=== PATIENT | female | born 1980 | race Caucasian/White ===

== ENCOUNTER → 2019-02-01 15:51 | Outpatient (CLI) | payer BC, SELFPAY ==
[2019-02-01 11:13] VITALS: BMI 35.5
[2019-02-01 16:01] LABS: Absolute Lymphocyte Count 3.36 X10^3/uL (0.83-4.51); Absolute Neutrophil Count 7.6 X10^3/uL (2.0-7.7); Basophil# 0.09 X10^3/uL; Basophil% 0.7 % (0-1); Eosinophil# 0.25 X10^3/uL; Hematocrit 46.8 % (37-47); Hemoglobin 15.6 g/dL (12.0-15.0); Lymphocyte # 3.36 X10^3/ul (4.0); Lymphocyte % 27.4 % (19-41); Mean Corp Hgb Conc 33.3 g/dL (32-36); Mean Corpuscular Hgb 30.5 pg (27.0-32.0); Mean Corpuscular Volume 91.6 fL (81-99); Mean Platelet Vol. 9.8 fl (6.2-12.0); Monocyte# 0.94 X10^3/uL; Monocyte% 7.7 % (0-10); NRBC Flagged by Analyzer 0 % (0-5); Neutrophil # 7.57 X10^3/uL (2.7-7.7); Neutrophil % 61.6 % (47-70); Platelet Count 339 K/mm3 (150-450); RBC Distribution Width CV 13.4 % (11.6-14.6); RBC Distribution Width SD 45.4 fl (35.1-43.9); Red Blood Count 5.11 M/mm3 (4.2-5.4); White Blood Count 12.3 K/mm3 (4.4-11.0)
[2019-02-01 16:22] LABS: ALB/GLOB Ratio 1.1 RATIO (0.9-2.4); AST(SGOT) 20 U/L (15-37); Alanine Aminotransfer ALT/SGPT 40 U/L (13-56); Alkaline Phosphatase 70 U/L (45-117); Anion Gap 7 (5-15); BUN 12 mg/dL (7-18); BUN/Creat Ratio 12.8 RATIO (10-20); Calcium,Total 9.7 mg/dL (8.5-10.1); Chloride 106 mmol/L (98-107); Cholesterol 279 mg/dL (200); Creatinine, Serum 0.94 mg/dL (0.55-1.02); EST Glomerular Filtration Rate 70 mL/min (>60); Est Glom Filt Rate - Afr Amer 85 mL/min (>60); Globulin 3.7 g/dL (2.2-4.2); Glucose 98 mg/dL (74-106); High Density Lipoprotein 40 mg/dL; Protein, Total 7.7 g/dL (6.4-8.2); Sodium Level 138 mmol/L (136-145); Thyroid Stim Hormone (TSH) 3.65 uIU/mL (0.358-3.74); Triglycerides 230 mg/dL; Very Low Density Lipoprotein 46 mg/dL (5-40)
[2019-02-05 12:21] LABS: Thyroid Peroxidase AB 11 IU/mL (0-34)
== END ==
PROVIDERS: Referring Provider Nurse Practitioner; Visit Provider Nurse Practitioner
DX: E03.9 Hypothyroidism, unspecified (principal); E78.00 Pure hypercholesterolemia, unspecified
CPT/HCPCS: 80053; 80061; 84443; 85025; 86376

== ENCOUNTER → 2019-05-07 21:42 | Outpatient (CLI) | payer BC, SELFPAY ==
[2019-05-07 16:05] VITALS: BMI 35.5
[2019-05-07 22:14] LABS: Thyroid Stim Hormone (TSH) 0.83 uIU/mL (0.358-3.74)
== END ==
PROVIDERS: Referring Provider Nurse Practitioner; Visit Provider Nurse Practitioner
DX: E03.9 Hypothyroidism, unspecified (principal)
CPT/HCPCS: 84443

== ENCOUNTER → 2019-11-26 21:12 | Outpatient (CLI) | payer BC, SELFPAY ==
[2019-11-26 19:44] VITALS: BMI 35.5
[2019-11-26 22:06] LABS: Follicle Stimulating Hormone 8.4 mIU/mL; Luteinizing Hormone 4.6 mIU/mL
[2019-11-28 20:28] LABS: V-Zoster IgG (Immunity) 705 index (Immune >165)
== END ==
PROVIDERS: Referring Provider Nurse Practitioner; Visit Provider Nurse Practitioner
DX: N95.1 Menopausal and female climacteric states (principal); D84.9 Immunodeficiency, unspecified
CPT/HCPCS: 83001; 83002; 86787

== ENCOUNTER → 2019-12-11 21:52 | Outpatient (CLI) | payer BC, SELFPAY ==
[2019-12-11 19:18] VITALS: BMI 35.5
[2019-12-11 22:20] LABS: Cholesterol 236 mg/dL (200); High Density Lipoprotein 65 mg/dL; Triglycerides 110 mg/dL; Very Low Density Lipoprotein 22 mg/dL (5-40)
== END ==
PROVIDERS: Referring Provider Nurse Practitioner; Visit Provider Nurse Practitioner
DX: N95.1 Menopausal and female climacteric states (principal); E78.00 Pure hypercholesterolemia, unspecified
CPT/HCPCS: 80061; 84443

== ENCOUNTER → 2020-05-05 22:18 | Outpatient (CLI) | payer OTHER, SELFPAY ==
[2020-05-05 22:36] LABS: Absolute Lymphocyte Count 3.84 X10^3/uL (0.83-4.51); Absolute Neutrophil Count 8.7 X10^3/uL (2.0-7.7); Basophil# 0.07 X10^3/uL; Basophil% 0.5 % (0-1); Eosinophil# 0.27 X10^3/uL; Eosinophils% 1.9 % (0-5); Hematocrit 46.8 % (37-47); Hemoglobin 14.9 g/dL (12.0-15.0); Lymphocyte # 3.84 X10^3/ul (4.0); Lymphocyte % 27.7 % (19-41); Mean Corp Hgb Conc 31.8 g/dL (32-36); Mean Corpuscular Hgb 29.7 pg (27.0-32.0); Mean Corpuscular Volume 93.4 fL (81-99); Mean Platelet Vol. 10.3 fl (6.2-12.0); Monocyte# 0.93 X10^3/uL; Monocyte% 6.7 % (0-10); NRBC Flagged by Analyzer 0 % (0-5); Neutrophil # 8.69 X10^3/uL (2.7-7.7); Neutrophil % 62.8 % (47-70); POSITIVE COUNT YES; Platelet Count 297 K/mm3 (150-450); RBC Distribution Width CV 13.6 % (11.6-14.6); RBC Distribution Width SD 46.6 fl (35.1-43.9); Red Blood Count 5.01 M/mm3 (4.2-5.4); White Blood Count 13.9 K/mm3 (4.4-11.0)
[2020-05-05 22:54] LABS: Differential Indicated SCAN CRITERIA MET
[2020-05-05 23:02] LABS: AST(SGOT) 19 U/L (15-37); Alanine Aminotransfer ALT/SGPT 40 U/L (13-56); Albumin, Serum 3.8 g/dL (3.2-5.0); Alkaline Phosphatase 75 U/L (45-117); Anion Gap 5 (5-15); BUN 9 mg/dL (7-18); BUN/Creat Ratio 10.6 RATIO (10-20); Calcium,Total 10.3 mg/dL (8.5-10.1); Chloride 103 mmol/L (98-107); Cholesterol 278 mg/dL (200); Creatinine, Serum 0.85 mg/dL (0.55-1.02); EST Glomerular Filtration Rate 78 mL/min (>60); Est Glom Filt Rate - Afr Amer 94 mL/min (>60); Globulin 3.8 g/dL (2.2-4.2); Glucose 78 mg/dL (74-106); High Density Lipoprotein 59 mg/dL; Potassium 4.1 mmol/L (3.5-5.1); Protein, Total 7.6 g/dL (6.4-8.2); Sodium Level 138 mmol/L (136-145); Thyroid Stim Hormone (TSH) 1.77 uIU/mL (0.358-3.74); Triglycerides 221 mg/dL; Very Low Density Lipoprotein 44 mg/dL (5-40)
[2020-05-05 23:13] LABS: Differential Comment SCANNED
== END ==
PROVIDERS: Visit Provider Nurse Practitioner
DX: L65.9 Nonscarring hair loss, unspecified (principal); E03.9 Hypothyroidism, unspecified; E55.9 Vitamin D deficiency, unspecified
CPT/HCPCS: 80053; 80061; 82652; 84443; 85025

== ENCOUNTER 2020-06-08 14:35 | Outpatient (RCR) | payer OTHER, SELFPAY ==
[2020-06-08] MEDS: COVID-19 VACC, MRNA(PFIZER)/PF 30 MCG/0.3 ML SYRINGE IM (11:10)
[2020-06-29] MEDS: COVID-19 VACC, MRNA(PFIZER)/PF 30 MCG/0.3 ML SYRINGE IM (11:48)
== END 2020-08-31 23:59 ==
LOC: IMMUN 14:35
PROVIDERS: PCP General Practice; Visit Provider Family Medicine
DX: Z23 Encounter for immunization (principal)
CPT/HCPCS: 0001A; 0002A; 91300

== ENCOUNTER → 2020-07-23 21:19 | Outpatient (CLI) | payer OTHER, SELFPAY ==
--- NOTE | 2020-07-23 | LES_PTH ---
PATIENT: BIN BILL LOC: [facility] U#:[id number] AGE/SX: 44/F ROOM: RE07/23/[address]: BATSHEVA Ledezma : 1980 BED: DIS: SPEC #: [id number] RECD: 07/26/20 07:59 STATUS: ANTONIO VIRGEN #: [id number] JOSE: 07/23/20 00:[address]: Varsha Beth NP DEPT: SURGICAL PATHOLOGY RECD BY: Yuki Kerr ENTERED: 07/26/20 08:00 SP TYPE: Lesion OTHR DR: Dr. Ashlee Franco MD Tissues: Skin of face, NOS Procedures: Surgery Specimen Level IV HEADER OPERATION: Right forehead lesion PRE-OP DIAGNOSIS: Right forehead lesion TISSUE SUBMITTED: Right forehead lesion MICROSCOPIC DIAGNOSIS Right forehead lesion, biopsy: Consistent with benign verrucous keratosis. Negative for malignancy. SJ:carolann 07/27/2020 MICROSCOPIC DESCRIPTION Slides are reviewed. GROSS DESCRIPTION Received in fixative is one container labeled with the patient's name and designated right forehead lesion. The specimen consists of a light harrington punch biopsy of skin measuring 8 mm in diameter and 0.3 mm in thickness. The specimen is inked, bisected and totally submitted in one cassette. / AM:carolann 07/26/20 TC:5 CPT: 75458
[2020-07-23 20:45] VITALS: BMI 32.4
== END ==
PROVIDERS: PCP General Practice; Referring Provider Nurse Practitioner; Visit Provider Nurse Practitioner
DX: L98.9 Disorder of the skin and subcutaneous tissue, unspecified (principal)
CPT/HCPCS: 88305

== ENCOUNTER → 2020-07-28 | Outpatient (CLI) | payer OTHER, SELFPAY ==
[2020-07-23 20:45] VITALS: BMI 32.4
[2020-07-28 22:01] LABS: Vitamin B12 591 pg/mL (211-911)
[2020-07-28 22:32] LABS: Creatinine, Serum 0.85 mg/dL (0.55-1.02); EST Glomerular Filtration Rate 78 mL/min (>60); Est Glom Filt Rate - Afr Amer 95 mL/min (>60)
== END | disposition home or self-care (01) ==
PROVIDERS: PCP General Practice; Visit Provider Nurse Practitioner
DX: R41.3 Other amnesia (principal)
CPT/HCPCS: 82565; 82607; 82746; 83921

== ENCOUNTER → 2020-08-30 21:34 | Outpatient (CLI) | payer OTHER, SELFPAY ==
[2020-08-30 14:47] VITALS: BMI 32.4
[2020-08-30 21:54] LABS: Absolute Lymphocyte Count 4.14 X10^3/uL (0.83-4.51); Absolute Neutrophil Count 12.2 X10^3/uL (2.0-7.7); Basophil# 0.08 X10^3/uL; Basophil% 0.5 % (0-1); Eosinophil# 0.24 X10^3/uL; Eosinophils% 1.4 % (0-5); Hematocrit 45.4 % (37-47); Lymphocyte # 4.14 X10^3/ul (0.83-4.51); Lymphocyte % 23.4 % (19-41); Mean Corpuscular Hgb 30.4 pg (27.0-32.0); Mean Corpuscular Volume 91.9 fL (81-99); Mean Platelet Vol. 9.9 fl (6.2-12.0); Monocyte# 0.95 X10^3/uL; Monocyte% 5.4 % (0-10); NRBC Flagged by Analyzer 0 % (0-5); Neutrophil # 12.19 X10^3/uL (2.7-7.7); Neutrophil % 68.7 % (47-70); Platelet Count 364 K/mm3 (150-450); RBC Distribution Width CV 13.7 % (11.6-14.6); RBC Distribution Width SD 46.3 fl (35.1-43.9); Red Blood Count 4.94 M/mm3 (4.2-5.4); White Blood Count 17.7 K/mm3 (4.4-11.0)
[2020-08-30 22:27] LABS: AST(SGOT) 19 U/L (15-37); Alanine Aminotransfer ALT/SGPT 39 U/L (13-56); Albumin, Serum 3.9 g/dL (3.2-5.0); Alkaline Phosphatase 79 U/L (45-117); Anion Gap 7 (5-15); BUN 9 mg/dL (7-18); BUN/Creat Ratio 10.4 RATIO (10-20); Calcium,Total 10.1 mg/dL (8.5-10.1); Chloride 103 mmol/L (98-107); Cholesterol 205 mg/dL (200); Creatinine, Serum 0.87 mg/dL (0.55-1.02); EST Glomerular Filtration Rate 76 mL/min (>60); Est Glom Filt Rate - Afr Amer 92 mL/min (>60); Globulin 3.9 g/dL (2.2-4.2); Glucose 79 mg/dL (74-106); High Density Lipoprotein 57 mg/dL; Potassium 3.7 mmol/L (3.5-5.1); Protein, Total 7.8 g/dL (6.4-8.2); Sodium Level 141 mmol/L (136-145); Thyroid Stim Hormone (TSH) 2.16 uIU/mL (0.358-3.74); Triglycerides 172 mg/dL; Very Low Density Lipoprotein 34 mg/dL (5-40)
== END ==
PROVIDERS: PCP General Practice; Referring Provider Nurse Practitioner; Visit Provider Nurse Practitioner
DX: E03.9 Hypothyroidism, unspecified (principal); E78.00 Pure hypercholesterolemia, unspecified
CPT/HCPCS: 80053; 80061; 84443; 85025

== ENCOUNTER → 2021-03-11 21:21 | Outpatient (CLI) | payer OTHER, SELFPAY ==
[2021-03-11 21:34] LABS: Absolute Lymphocyte Count 3.97 X10^3/uL (0.83-4.51); Absolute Neutrophil Count 8.9 X10^3/uL (2.0-7.7); Basophil# 0.07 X10^3/uL; Basophil% 0.5 % (0-1); Eosinophil# 0.25 X10^3/uL; Eosinophils% 1.8 % (0-5); Hematocrit 43.4 % (37-47); Hemoglobin 14.5 g/dL (12.0-15.0); Lymphocyte # 3.97 X10^3/ul (0.83-4.51); Lymphocyte % 28.1 % (19-41); Mean Corp Hgb Conc 33.4 g/dL (32-36); Mean Corpuscular Hgb 30.8 pg (27.0-32.0); Mean Corpuscular Volume 92.1 fL (81-99); Mean Platelet Vol. 9.4 fl (6.2-12.0); Monocyte# 0.83 X10^3/uL; Monocyte% 5.9 % (0-10); NRBC Flagged by Analyzer 0 % (0-5); Neutrophil # 8.93 X10^3/uL (2.7-7.7); Neutrophil % 63.2 % (47-70); Platelet Count 381 K/mm3 (150-450); RBC Distribution Width CV 13.3 % (11.6-14.6); RBC Distribution Width SD 45.7 fl (35.1-43.9); Red Blood Count 4.71 M/mm3 (4.2-5.4); White Blood Count 14.1 K/mm3 (4.4-11.0)
[2021-03-11 21:55] LABS: ALB/GLOB Ratio 0.9 RATIO (0.9-2.4); AST(SGOT) 15 U/L (15-37); Alanine Aminotransfer ALT/SGPT 46 U/L (13-56); Albumin, Serum 3.7 g/dL (3.2-5.0); Alkaline Phosphatase 80 U/L (45-117); Anion Gap 4 (5-15); BUN 11 mg/dL (7-18); BUN/Creat Ratio 12.4 RATIO (10-20); Calcium,Total 10.1 mg/dL (8.5-10.1); Chloride 105 mmol/L (98-107); Cholesterol 272 mg/dL (200); Creatinine, Serum 0.88 mg/dL (0.55-1.02); EST Glomerular Filtration Rate 74 mL/min (>60); Est Glom Filt Rate - Afr Amer 90 mL/min (>60); Globulin 3.9 g/dL (2.2-4.2); Glucose 90 mg/dL (74-106); High Density Lipoprotein 51 mg/dL; Potassium 3.8 mmol/L (3.5-5.1); Protein, Total 7.6 g/dL (6.4-8.2); Sodium Level 139 mmol/L (136-145); Triglycerides 239 mg/dL; Very Low Density Lipoprotein 48 mg/dL (5-40)
== END ==
PROVIDERS: PCP General Practice; Visit Provider Nurse Practitioner
DX: E78.00 Pure hypercholesterolemia, unspecified (principal); E03.9 Hypothyroidism, unspecified
CPT/HCPCS: 80053; 80061; 84443; 85025

== ENCOUNTER 2021-04-27 21:56 | Outpatient (CLI) | payer BC, SELFPAY | END 2021-04-27 23:59 | disposition short-term general hospital (02) | PROVIDERS: PCP General Practice; Visit Provider Nurse Practitioner | DX: J34.89 Other specified disorders of nose and nasal sinuses (principal) | CPT/HCPCS: 87070; 87077; 87186; 87205; 87255 ==

== ENCOUNTER 2021-05-24 14:16 | Emergency (ER) | payer BC, SELFPAY ==
[2021-05-24 14:17] VITALS: BP 166/78; PULSE 73; RESP 15; TEMP 36.2; O2SAT 98; BMI 35.9
--- NOTE | 2021-05-24 14:29 | RAD_ITS ---
STUDY: X-RAY CHEST REASON FOR EXAM: Female, 40 years old. Cough. TECHNIQUE: Single frontal view of the chest. COMPARISON: None. FINDINGS: The lungs are clear and expanded. There is no demonstrated pleural abnormality. Normal size heart. Normal mediastinum and liss. Normal visualized pulmonary arteries. Normal visualized aortic arch and descending thoracic aorta. Normal visualized ribs, clavicles, and shoulders. There is no demonstrated abnormality of the visualized soft tissue structures of the upper abdomen. RAD/Chest 1 View (Portable) IMPRESSION: Normal x-ray examination of the chest. Electronically Signed: Shelton Cantu MD at 10:53 EST ,
--- NOTE | 2021-05-24 14:47 | EKG12_ITS ---
Test Reason : COLD SYMPTOMS Blood Pressure : / mmHG Vent. Rate : 073 BPM Atrial Rate : 073 BPM P-R Int : 142 ms QRS Dur : 096 ms QT Int : 418 ms P-R-T Axes : 000 172 128 degrees QTc Int : 460 ms Normal sinus rhythm Normal ECG Confirmed by BETHANY HOUSTON MD ([id number]), copy editor JOS GIRON ([id number]) on 05/26/2021 1:37:31 PM Referred By: BONNY Confirmed By:BETHANY HOUSTON MD
--- NOTE | 2021-05-24 14:47 | EX.ED.DYSGE1 ---
HPI History of Present Illness Chief Complaint: Cold Sx Informant: patient Onset/Context/Timing Onset: Weeks Context: Gradual Onset Timing: Waxes and wanes Current Severity: Moderate Maximum Severity: Moderate Narrative Narrative: Patient presents secondary to cold symptoms been ongoing for the last 2 months. Symptoms of been waxing and waning but she states today she feels the worst she has. Today she developed shortness of breath with pain in her bilateral lower ribs. Patient reports feeling congested and generally weak. She reports loss of taste and smell. She is coughing with yellow to green-colored sputum. She reports that she was on amoxicillin 2 or 3 weeks ago for presumed sinus infection but did not receive any relief with that medication. She has not been tested for Covid. [facility] Medical History ABLATION UTERINE 2010 ADD (attention deficit disorder) Anxiety disorder Depression history of cystectomy Skin lesion of face Home Medications dextroamphetamine-amphetamine 20 mg PO BID 10/11/16 [History Last Taken Unknown] trazodone 200 mg PO QHS 10/11/16 [History Last Taken Unknown] venlafaxine 75 mg PO TID 10/11/16 [History Last Taken 10/13/16 07:00] bupropion HCl 300 mg 24 hr tablet, extended release 300 mg PO QAM 12/14/17 [History Last Taken Unknown] promethazine 12.5 mg tablet 12.5 mg PO TID PRN #60 tab 03/24/19 [Rx Last Taken Unknown] levothyroxine 50 mcg tablet 50 mcg PO DAILY #90 tab 05/08/19 [Rx Last Taken Unknown] valacyclovir 1 gram tablet 2,000 mg PO BID PRN 1 Days #4 tab 05/15/19 [Rx Last Taken Unknown] lemborexant 5 mg tablet 5 mg PO QHS #10 tab 05/13/20 [Rx Last Taken Unknown] lemborexant 10 mg tablet 10 mg PO QHS #30 tablet 06/25/20 [Rx Last Taken Unknown] albuterol sulfate 90 mcg/actuation aerosol inhaler 2 puff INHALATION Q6H PRN #6.7 g 08/26/20 [Rx Last Taken Unknown] cyclobenzaprine 10 mg tablet 10 mg PO TID PRN #60 tab 11/12/20 [Rx Last Taken Unknown] tramadol 50 mg tablet 50 mg PO Q8H PRN #30 tab 11/12/20 [Rx Last Taken Unknown] prednisone 20 mg tablet 40 mg PO DAILY #20 tab 11/24/20 [Rx Last Taken Unknown] terbinafine HCl 250 mg tablet 250 mg PO DAILY #30 tab 02/22/21 [Rx Last Taken Unknown] paroxetine HCl 20 mg tablet 20 mg PO DAILY #90 tab 03/17/21 [Rx Last Taken Unknown] amoxicillin 875 mg-potassium clavulanate 125 mg tablet 1 tab PO BID #20 tab 03/24/21 [Rx Last Taken Unknown] benzonatate 200 mg capsule 200 mg PO TID PRN #60 cap 03/24/21 [Rx Last Taken Unknown] mupirocin 2 % topical ointment 1 applic TOPICAL BID #15 g 04/28/21 [Rx Last Taken Unknown] sulfamethoxazole 800 mg-trimethoprim 160 mg tablet 1 tab PO BID 7 Days #14 tab 04/28/21 [Rx Last Taken Unknown] doxycycline monohydrate 100 mg PO BID #20 cap 05/24/21 [Rx Last Taken Unknown] Allergy/AdvReac Type Severity Reaction Status Date / Time No Known Allergies Allergy Verified 04/19/17 09:24 Family History Other Breast cancer Diabetes Heart disease High cholesterol Hypertension Migraines TREMORS Thyroid disorder Surgical History Pilonidal cyst Social History Smoking Status: Current every day smoker tobacco type: cigarettes second hand exposure: Yes alcohol intake: current substance use type: does not use ROS ROS ED Constitutional Constitutional ED: Reports other Details: Clammy ; Denies chills or fever(s) Eyes Eyes: Denies change in vision ENT ENT ED: Reports sore throat and other Details: Sinus pressure Cardiovascular Cardiovascular: Reports chest pain and other Details: Bilateral lower rib Respiratory/Chest Respiratory/Chest: Reports cough, dyspnea and sputum Gastrointestinal Gastrointestinal: Denies abdominal pain, diarrhea, nausea or vomiting Genitourinary Genitourinary ED: Denies dysuria Musculoskeletal Musculoskeletal: Denies back pain Integumentary Denies rash Neurologic Neurologic: Reports headache(s) and weakness Psychiatric Psychiatric: Denies anxiety or depression Allergic/Immunologic Allergic/Immunologic ED: Denies urticaria EXAM Physical Exam Const Vital Signs: 05/24/21 14:17 05/24/21 14:21 05/24/21 14:55 Temperature 97.2 F L Temperature Source Temporal Pulse Rate 73 68 Respiratory Rate 15 11 L Respiratory Effort Normal Non-Labored Respiratory Pattern Normal Blood Pressure 166/78 H 152/83 H Blood Pressure Mean 107 106 Pulse Ox 98 98 Oxygen Delivery Method Room Air Room Air Positive well nourished and well developed General Appearance ED: well developed HEENT Reports moist mucous membranes HEENT Narrative: Normal posterior pharynx. Tenderness noted over the frontal and maxillary sinuses bilaterally. Eyes PERRL and EOMs intact bilaterally Neck no lymphadenopathy and supple Chest Wall inspection of chest normal and palpation of chest normal Resp normal respiratory effort and clear to auscultation bilaterally Cardio regular rate and regular rhythm GI non-tender Palpation: soft Extremity normal to inspection Neuro oriented x3 Sensorium / Orientation: alert Psych mental status grossly normal Skin no rashes or lesions noted MDM MDM MDM Narrative Medical decision making narrative: Chest x-ray, EKG, lab work obtained. Covid PCR test sent. Lab Data Attestation: I reviewed the patient's lab results. Labs: Laboratory Results - last 24 hr 05/24/21 05/24/21 05/24/21 14:55 14:55 14:55 WBC 11.7 H RBC 5.05 Hgb 15.3 H Hct 45.3 MCV 89.7 MCH 30.3 MCHC 33.8 RDW Std Deviation 45.1 H RDW Coeff of Nathanael 13.9 Plt Count 350 MPV 9.3 Immature Gran % (Auto) 0.600 Neut % (Auto) 63.1 Lymph % (Auto) 28.6 Mcdonald % (Auto) 4.8 Eos % (Auto) 2.6 Baso % (Auto) 0.3 Absolute Neuts (auto) 7.4 Absolute Lymphs (auto) 3.35 Nucleated RBC % 0 D-Dimer Quant (PE/DVT) < 0.27 L Sodium 140 Potassium 3.6 Chloride 110 H Carbon Dioxide 25.0 Anion Gap 5 BUN 7 Creatinine 0.94 Estim Creat Clear Calc 58.83 Est GFR (MDRD) Af Amer 83 Est GFR (MDRD) Non-Af 69 BUN/Creatinine Ratio 7.4 L Glucose 128 H Calcium 9.9 Radiography Chest X-Ray - ED: 1 View, Read by ED Physician, Normal, Heart, Lungs, Mediastinum and No Acute Disease EKG Initial EKG: Attestation: I personally reviewed and interpreted this EKG as follows: Interpretation: Sinus Rhythm (Sinus at 73 with no acute ischemia.) Treatment and Re-Evaluation Comments:: Test results reviewed with the patient. Lab work reveals only mild leukocytosis with a white count 11.7. D-dimer is negative. Chest x-ray reveals no focal infiltrate. I did advise patient that her Covid PCR test result will be texted to her. I will treat her with doxycycline for bronchitis as well as sinusitis. Discharge Plan Triage Chief Complaint: Cold Sx ED Provider: Shannon Hameed Dx/Rx/DC Orders Clinical Impression: Sinusitis, Bronchitis Instructions: ED Upper Resp Infec Abx Tx, ED Sinusitis (Antibiotic Treatment) Prescriptions: New doxycycline monohydrate 100 MG capsule 100 mg PO BID Qty: 20 RF: 0 No Action bupropion HCl [Wellbutrin XL] 300 mg tablet extended release 24 hr 300 mg PO QAM RF: 0 venlafaxine 75 MG tablet 75 mg PO TID RF: 0 dextroamphetamine-amphetamine 10 MG tablet 20 mg PO BID RF: 0 trazodone 100 MG tablet 200 mg PO QHS RF: 0 promethazine 12.5 mg tablet 12.5 mg PO TID PRN (Reason: nausea and vomiting) Qty: 60 RF: 1 levothyroxine 50 mcg tablet 50 mcg PO DAILY Qty: 90 RF: 3 valacyclovir 1 gram tablet 2,000 mg PO BID PRN (Reason: cold sores) 1 Days Qty: 4 RF: 12 Dayvigo 5 mg tablet 5 mg PO QHS Qty: 10 RF: 0 lemborexant 10 mg tablet 10 mg PO QHS Qty: 30 RF: 5 albuterol sulfate [ProAir HFA] 90 mcg/actuation HFA aerosol inhaler 2 puff inhalation Q6H PRN (Reason: shortness of breath or wheezing) Qty: 6.7 RF: 12 tramadol 50 mg tablet 50 mg PO Q8H PRN (Reason: pain) Qty: 30 RF: 5 cyclobenzaprine 10 mg tablet 10 mg PO TID PRN (Reason: muscle spasm) Qty: 60 RF: 3 prednisone 20 mg tablet 40 mg PO DAILY Qty: 20 RF: 0 terbinafine HCl 250 mg tablet 250 mg PO DAILY Qty: 30 RF: 0 paroxetine HCl 20 mg tablet 20 mg PO DAILY Qty: 90 RF: 3 amoxicillin-pot clavulanate 875-125 mg tablet 1 tab PO BID Qty: 20 RF: 0 benzonatate 200 mg capsule 200 mg PO TID PRN (Reason: cough) Qty: 60 RF: 2 mupirocin 2 % ointment 1 applic topical BID Qty: 15 RF: 1 sulfamethoxazole-trimethoprim 800-160 mg tablet 1 tab PO BID 7 Days Qty: 14 RF: 1 Primary Care Provider: Ashlee Franco Referrals: Ashlee Franco MD [Primary Care Provider] - 1-2 Weeks Disposition Disposition: Home, Self Care
--- NOTE | 2021-05-24 14:52 | NURSING ---
NO OLD EKGS
[2021-05-24 14:55] VITALS: BP 152/83; PULSE 68; RESP 11; O2SAT 98
[2021-05-24 15:12] LABS: Absolute Lymphocyte Count 3.35 X10^3/uL (0.83-4.51); Absolute Neutrophil Count 7.4 X10^3/uL (2.0-7.7); Basophil# 0.03 X10^3/uL; Basophil% 0.3 % (0-1); Eosinophils% 2.6 % (0-5); Hematocrit 45.3 % (37-47); Hemoglobin 15.3 g/dL (12.0-15.0); Lymphocyte # 3.35 X10^3/ul (0.83-4.51); Lymphocyte % 28.6 % (19-41); Mean Corp Hgb Conc 33.8 g/dL (32-36); Mean Corpuscular Hgb 30.3 pg (27.0-32.0); Mean Corpuscular Volume 89.7 fL (81-99); Mean Platelet Vol. 9.3 fl (6.2-12.0); Monocyte# 0.56 X10^3/uL; Monocyte% 4.8 % (0-10); NRBC Flagged by Analyzer 0 % (0-5); Neutrophil # 7.39 X10^3/uL (2.7-7.7); Neutrophil % 63.1 % (47-70); Platelet Count 350 K/mm3 (150-450); RBC Distribution Width CV 13.9 % (11.6-14.6); RBC Distribution Width SD 45.1 fl (35.1-43.9); Red Blood Count 5.05 M/mm3 (4.2-5.4); White Blood Count 11.7 K/mm3 (4.4-11.0)
[2021-05-24 15:17] LABS: D-Dimer Quantitative (DVT/PE) < 0.27 FEU/ug/m (0.27-0.49)
[2021-05-24 15:18] LABS: Anion Gap 5 (5-15); BUN 7 mg/dL (7-18); BUN/Creat Ratio 7.4 RATIO (10-20); Calcium,Total 9.9 mg/dL (8.5-10.1); Chloride 110 mmol/L (98-107); Creatinine, Serum 0.94 mg/dL (0.55-1.02); EST Glomerular Filtration Rate 69 mL/min (>60); Est Glom Filt Rate - Afr Amer 83 mL/min (>60); Estimated Creatinine Clearance 58.83 ml/min; Glucose 128 mg/dL (74-106); Potassium 3.6 mmol/L (3.5-5.1); Sodium Level 140 mmol/L (136-145)
[2021-05-24 16:07] VITALS: BP 138/74; PULSE 71; RESP 16; O2SAT 97
== END 2021-05-24 16:07 | disposition home or self-care (01) ==
PROVIDERS: Emergency Provider Emergency Medicine; PCP General Practice; Visit Provider Emergency Medicine
DX: J40 Bronchitis, not specified as acute or chronic (principal); Z77.22 Contact with and (suspected) exposure to environmental tobacco smoke (acute) (chronic); F17.200 Nicotine dependence, unspecified, uncomplicated; F98.8 Other specified behavioral and emotional disorders with onset usually occurring in childhood and adolescence; F41.9 Anxiety disorder, unspecified; F32.A Depression, unspecified
CPT/HCPCS: 71045; 80048; 85025; 85379; 87635; 93005; 99284; A4216; U0003; U0005

== ENCOUNTER → 2021-08-18 | Outpatient (CLI) | payer BC, SELFPAY ==
[2021-08-19 00:11] LABS: Absolute Lymphocyte Count 3.63 X10^3/uL (0.83-4.51); Absolute Neutrophil Count 8.2 X10^3/uL (2.0-7.7); Basophil# 0.05 X10^3/uL; Basophil% 0.4 % (0-1); Eosinophil# 0.16 X10^3/uL; Eosinophils% 1.3 % (0-5); Hematocrit 46.4 % (37-47); Hemoglobin 15.8 g/dL (12.0-15.0); Lymphocyte # 3.63 X10^3/ul (0.83-4.51); Lymphocyte % 28.7 % (19-41); Mean Corp Hgb Conc 34.1 g/dL (32-36); Mean Corpuscular Hgb 30.6 pg (27.0-32.0); Mean Corpuscular Volume 89.9 fL (81-99); Mean Platelet Vol. 10.3 fl (6.2-12.0); Monocyte% 4.7 % (0-10); NRBC Flagged by Analyzer 0 % (0-5); Neutrophil # 8.17 X10^3/uL (2.7-7.7); Neutrophil % 64.5 % (47-70); Platelet Count 347 K/mm3 (150-450); RBC Distribution Width CV 13.4 % (11.6-14.6); RBC Distribution Width SD 44.2 fl (35.1-43.9); Red Blood Count 5.16 M/mm3 (4.2-5.4); White Blood Count 12.7 K/mm3 (4.4-11.0)
[2021-08-19 00:36] LABS: ALB/GLOB Ratio 1.1 RATIO (0.9-2.4); AST(SGOT) 21 U/L (15-37); Alanine Aminotransfer ALT/SGPT 48 U/L (13-56); Albumin, Serum 4.1 g/dL (3.2-5.0); Alkaline Phosphatase 80 U/L (45-117); Anion Gap 7 (5-15); BUN 12 mg/dL (7-18); BUN/Creat Ratio 12.1 RATIO (10-20); Calcium,Total 10.5 mg/dL (8.5-10.1); Chloride 103 mmol/L (98-107); Cholesterol 218 mg/dL (200); Creatinine, Serum 0.99 mg/dL (0.55-1.02); EST Glomerular Filtration Rate 65 mL/min (>60); Est Glom Filt Rate - Afr Amer 79 mL/min (>60); Globulin 3.9 g/dL (2.2-4.2); Glucose 90 mg/dL (74-106); High Density Lipoprotein 49 mg/dL; Potassium 3.8 mmol/L (3.5-5.1); Sodium Level 138 mmol/L (136-145); Triglycerides 167 mg/dL; Very Low Density Lipoprotein 33 mg/dL (5-40)
[2021-08-21 09:19] LABS: EBV Acute VCA IgM < 36.0 U/mL (0.0-35.9); EBV Nuclear Antigen IgG > 600.0 U/mL (0.0-17.9)
== END | disposition home or self-care (01) ==
PROVIDERS: PCP General Practice; Referring Provider Nurse Practitioner; Visit Provider Nurse Practitioner
DX: E03.9 Hypothyroidism, unspecified (principal); E78.00 Pure hypercholesterolemia, unspecified; R53.83 Other fatigue
CPT/HCPCS: 80053; 80061; 84443; 85025; 86664; 86665

== ENCOUNTER → 2021-11-01 | Outpatient (CLI) | payer BC, SELFPAY | END | disposition home or self-care (01) | PROVIDERS: PCP General Practice; Visit Provider Nurse Practitioner | DX: T63.481A Toxic effect of venom of other arthropod, accidental (unintentional), initial encounter (principal) | CPT/HCPCS: 87070; 87077; 87186; 87205 ==

== ENCOUNTER → 2021-12-16 | Outpatient (CLI) | payer BC, SELFPAY ==
[2021-12-16 21:39] LABS: Absolute Lymphocyte Count 2.63 X10^3/uL (0.83-4.51); Absolute Neutrophil Count 7.6 X10^3/uL (2.0-7.7); Basophil# 0.07 X10^3/uL; Basophil% 0.6 % (0-1); Eosinophil# 0.19 X10^3/uL; Eosinophils% 1.7 % (0-5); Hematocrit 46.6 % (37-47); Hemoglobin 15.4 g/dL (12.0-15.0); Lymphocyte # 2.63 X10^3/ul (0.83-4.51); Lymphocyte % 23.6 % (19-41); Mean Corpuscular Hgb 30.6 pg (27.0-32.0); Mean Corpuscular Volume 92.6 fL (81-99); Mean Platelet Vol. 9.9 fl (6.2-12.0); Monocyte% 5.4 % (0-10); NRBC Flagged by Analyzer 0 % (0-5); Neutrophil # 7.63 X10^3/uL (2.7-7.7); Neutrophil % 68.3 % (47-70); Platelet Count 357 K/mm3 (150-450); RBC Distribution Width CV 13.5 % (11.6-14.6); RBC Distribution Width SD 46.2 fl (35.1-43.9); Red Blood Count 5.03 M/mm3 (4.2-5.4); White Blood Count 11.2 K/mm3 (4.4-11.0)
[2021-12-16 22:00] LABS: ALB/GLOB Ratio 1.1 RATIO (0.9-2.4); AST(SGOT) 35 U/L (15-37); Alanine Aminotransfer ALT/SGPT 64 U/L (13-56); Albumin, Serum 4.1 g/dL (3.2-5.0); Alkaline Phosphatase 91 U/L (45-117); Anion Gap 7 (5-15); BUN 10 mg/dL (7-18); Calcium,Total 10.5 mg/dL (8.5-10.1); Chloride 104 mmol/L (98-107); Cholesterol 213 mg/dL (200); Creatinine, Serum 0.91 mg/dL (0.55-1.02); EST Glomerular Filtration Rate 72 mL/min (>60); Est Glom Filt Rate - Afr Amer 87 mL/min (>60); Globulin 3.7 g/dL (2.2-4.2); Glucose 98 mg/dL (74-106); High Density Lipoprotein 49 mg/dL; Potassium 4.3 mmol/L (3.5-5.1); Protein, Total 7.8 g/dL (6.4-8.2); Sodium Level 141 mmol/L (136-145); T4 Free Direct 0.92 ng/dL (0.76-1.46); Thyroid Stim Hormone (TSH) 2.08 uIU/mL (0.358-3.74); Triglycerides 172 mg/dL; Very Low Density Lipoprotein 34 mg/dL (5-40)
[2021-12-19 19:07] LABS: Anti-Centromere B Ab <0.2 AI (0.0-0.9); Anti-Chromatin <0.2 AI (0.0-0.9); Anti-Jo <0.2 AI (0.0-0.9); Anti-Scleroderma-70 AB <0.2 AI (0.0-0.9); RNP Ab 0.7 AI (0.0-0.9); SJOGREN'S Anti-SS-A test < 0.2 AI (0.0-0.9); SJOGREN'S Anti-SS-B test < 0.2 AI (0.0-0.9); Smith Ab <0.2 AI (0.0-0.9)
[2021-12-20 15:02] LABS: Anti-dsDNA Ab 1 IU/mL (0-9); Vitamin D 1,25-Dihydroxy 33.2 pg/mL (24.8-81.5)
== END | disposition home or self-care (01) ==
PROVIDERS: PCP General Practice; Visit Provider Nurse Practitioner
DX: E03.9 Hypothyroidism, unspecified (principal); F32.A Depression, unspecified; F98.8 Other specified behavioral and emotional disorders with onset usually occurring in childhood and adolescence; E78.00 Pure hypercholesterolemia, unspecified; E55.9 Vitamin D deficiency, unspecified
CPT/HCPCS: 80053; 80061; 82652; 84439; 84443; 85025; 86225; 86235

== ENCOUNTER 2022-04-07 18:45 | Emergency (ER) | payer BC, SELFPAY ==
[2022-04-07 18:46] VITALS: BP 119/95; PULSE 105; RESP 28; TEMP 35.6; O2SAT 98; BMI 35.7
--- NOTE | 2022-04-07 19:00 | EKG12_ITS ---
Test Reason : DYSRHYTHMIA Blood Pressure : / mmHG Vent. Rate : 099 BPM Atrial Rate : 099 BPM P-R Int : 160 ms QRS Dur : 104 ms QT Int : 362 ms P-R-T Axes : 030 019 046 degrees QTc Int : 464 ms Normal sinus rhythm Nonspecific ST abnormality Abnormal ECG Confirmed by ROSEMARIE LAM, BETHANY ([id number]), publishing editor JOS GIRON ([id number]) on 04/10/2022 11:50:44 AM Referred By: CARLA Confirmed By:BETHANY HOUSTON MD
--- NOTE | 2022-04-07 19:15 | CT_ITS ---
INDICATION: Change in Mental Status EXAMINATION: CT BRAIN - CT Head or Brain W/O Contrast Injection TECHNIQUE: Multiple axial images were obtained of the head without intravenous contrast. A radiation dose optimization technique was used for this scan. IV Contrast dosage and agent: None. COMPARISON: FINDINGS: BRAIN PARENCHYMA: No intra- or extra-axial hemorrhage. No evidence of acute infarct. No intracranial mass or mass effect. There is preservation of the neri/white matter interface. Posterior fossa structures are unremarkable. CSF SPACES: Appropriate for age. No hydrocephalus. Basal cisterns are patent. CALVARIUM, SKULL BASE, PARANASAL SINUSES AND MASTOID AIR CELLS: Clear. No discrete lytic or blastic abnormalities. ORBITS: Both globes, extraocular muscles, optic nerves and retrobulbar fat appear unremarkable. Partial opacification right mastoid air cells likely on the basis of old inflammatory disease CT/Brain/Head without Contrast IMPRESSION: Negative Brain CT without contrast. If concern for acute infarct MRI recommended Electronically Signed: Chris Doan MD at 19:59 EST ,
--- NOTE | 2022-04-07 19:16 | ED.VIS.DYS ---
HPI History of Present Illness Chief Complaint: Shortness of Breath Narrative Narrative: 41-year-old with past medical history of depression and anxiety, ADHD, presents with multiple somatic complaints. Her main 1 is that she did not feel well at work all day, she stated that she was having problems writing. 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 She states she was sent home because she was not feeling well. She called her and he states that she said she was having shortness of breath, and it is hard for her to breathe. Here in the emergency department, she states that my body is doing things that I do not wanted to do, and I do not know why. She states that she knows that she is staring at me, but once again does not know why. She denies any fevers or chills. No headache, no other symptoms. She states she is not in pain anywhere. [facility] Medical History ABLATION UTERINE 2010 ADD (attention deficit disorder) Anxiety disorder Depression history of cystectomy Skin lesion of face Home Medications dextroamphetamine-amphetamine 10 mg tablet 20 mg PO BID 10/11/16 [History Last Taken Unknown] trazodone 100 mg tablet 200 mg PO QHS 10/11/16 [History Last Taken Unknown] venlafaxine 75 mg tablet 75 mg PO TID 10/11/16 [History Last Taken 10/13/16 07:00] bupropion HCl 300 mg 24 hr tablet, extended release (Wellbutrin XL) 300 mg PO QAM 12/14/17 [History Last Taken Unknown] levothyroxine 50 mcg tablet 50 mcg PO DAILY #90 tabs 05/08/19 [Rx Last Taken Unknown] valacyclovir 1 gram tablet 2,000 mg PO BID PRN cold sores 1 day #4 tabs 05/15/19 [Rx Last Taken Unknown] lemborexant 5 mg tablet (Dayvigo) 5 mg PO QHS #10 tabs 05/13/20 [Rx Last Taken Unknown] lemborexant 10 mg tablet 10 mg PO QHS #30 tabs 06/25/20 [Rx Last Taken Unknown] albuterol sulfate 90 mcg/actuation aerosol inhaler (ProAir HFA) 2 puff inhalation Q6H PRN shortness of breath or wheezing #6.7 grams 08/26/20 [Rx Last Taken Unknown] cyclobenzaprine 10 mg tablet 10 mg PO TID PRN muscle spasm #60 tabs 11/12/20 [Rx Last Taken Unknown] tramadol 50 mg tablet 50 mg PO Q8H PRN pain #30 tabs 11/12/20 [Rx Last Taken Unknown] paroxetine HCl 20 mg tablet 20 mg PO DAILY #90 tabs 03/17/21 [Rx Last Taken Unknown] benzonatate 200 mg capsule 200 mg PO TID PRN cough #60 caps 03/24/21 [Rx Last Taken Unknown] mupirocin 2 % topical ointment 1 applic topical BID #15 grams 04/28/21 [Rx Last Taken Unknown] promethazine 12.5 mg tablet 12.5 mg PO TID PRN nausea and vomiting #60 tabs 08/05/21 [Rx Last Taken Unknown] ciprofloxacin HCl 500 mg tablet 500 mg PO BID #20 tabs 03/28/22 [Rx Last Taken Unknown] Allergy/AdvReac Type Severity Reaction Status Date / Time No Known Allergies Allergy Verified 04/19/17 09:24 Family History Other Breast cancer Diabetes Heart disease High cholesterol Hypertension Migraines TREMORS Thyroid disorder Surgical History Pilonidal cyst Social History Smoking Status: Current every day smoker tobacco type: cigarettes second hand exposure: Yes alcohol intake: current substance use type: does not use ROS ROS ED ROS Narrative Constitutional: No fever, no chills. HEENT: No sore throat. No neck pain. No loss of vision. No rhinorrhea. Cardiovascular: No chest pain in my history, but told triage nurse that she was having chest pain. No palpitations. No pedal edema. Respiratory: No cough, positive shortness of breath. Abdominal: No abdominal pain. No nausea. No vomiting. Genitourinary: No dysuria. No hematuria. Musculoskeletal: No myalgias. No arthralgias. Neurologic: No headaches. Positive dizziness. No lightheadedness. Skin: No rash. No change in color. Psychiatric: No depression. No anxiety. EXAM Physical Exam Narrative Exam Narrative: Afebrile. Vital signs noted. HEENT: Normocephalic. Atraumatic. PERRL, EOMI. Neck soft and supple. No point tenderness or step off. Cardiovascular: Regular rate and rhythm. No murmurs, rubs, or gallops appreciated. Respiratory: No tachypnea. Lungs clear to auscultation bilaterally. Gastrointestinal: Abdomen soft, nontender, with normoactive bowel sounds. No rebound or guarding. Neurological: Awake. Alert. Nonfocal, nonlateralizing. Skin: No rash. Normal color. No pallor. Musculoskeletal: No pedal edema. Full range of motion extremities. Psychiatric: Strange behavior. Seems hyperactive and distracted with mild flight of ideas. She will then lay in bed with her head back, without syncope or seizure activity. Const Vital Signs: 04/07/22 18:46 04/07/22 20:19 Temperature 96.1 F L Temperature Source Temporal Pulse Rate 105 H 74 Respiratory Rate 28 H Blood Pressure 119/95 H 146/88 H Blood Pressure Mean 103 107 Pulse Ox 98 97 Oxygen Delivery Method Room Air Room Air MDM MDM MDM Narrative Medical decision making narrative: Comprehensive work-up was pursued. For her shortness of breath, EKG was obtained which demonstrates normal sinus rhythm at 99 bpm with out ectopy or acute ST changes. No STEMI. Given her bizarre behavior, mental health screening labs were obtained including chest x-ray and CT of the brain for her reported dizziness and mental status change. For sake of ease, mental health nurse that was used. I reviewed her labs. She has leukocytosis of 15.6 which I think is nonspecific, she has a chronic leukocytosis with elevated WBCs in her laboratory review. Hemoglobin stable at 15.6 with hematocrit 45.8. Platelet count normal at 415. Sodium is slightly low at 135 which I think is nonspecific, potassium 4.8, chloride normal at 105. BUN is normal at 7, creatinine 0.92. TSH 2.34. I obtained an EKG and interpreted it myself and it shows normal sinus rhythm at 99 bpm without ectopy or acute ST changes. No STEMI. There is no significant change from previous EKG reviewed dated May 24, 2021. Her high-sensitivity troponin is 3. Serum is negative. Urinalysis shows no evidence of infection, no ketones. While her urine drug screen is positive for amphetamines and MDMA, she takes Vyvanse and Effexor. Chest x-ray interpreted by myself shows no acute infiltrate or pneumothorax. I reviewed the radiology report and agree. I reviewed the CT report, and there is no acute process, no hemorrhage. At this point in time, I do not feel that she is dehydrated. She has negative work-up here. She keeps complaining that she will space out and gets confused. Additionally, she states that sometimes she has to remind myself to breathe. She has a normal pulse ox. She and her state that she has been on antibiotics for a month because of upper respiratory infection type symptoms, she also had influenza A. Her pulse ox is normal at 97 to 98% on room air. While I am unsure as to the cause of her reported confusion and dyspnea, I feel she can be discharged safely home with follow-up. I do not feel that she needs emergent psychiatric evaluation either. I discussed this with the patient and her , and they agree. Return instructions to the emergency department were reviewed. Disposition is discharged home in stable condition. Lab Data Attestation: I reviewed the patient's lab results. Labs: Laboratory Results - last 24 hr 04/07/22 04/07/22 04/07/22 18:50 18:50 18:50 WBC 15.6 H RBC 5.11 Hgb 15.6 H Hct 45.8 MCV 89.6 MCH 30.5 MCHC 34.1 RDW Std Deviation 45.7 H RDW Coeff of Nathanael 14.0 Plt Count 415 MPV 10.0 Immature Gran % (Auto) 0.500 Neut % (Auto) 57.9 Lymph % (Auto) 33.1 Bennett % (Auto) 7.0 Eos % (Auto) 0.9 Baso % (Auto) 0.6 Absolute Neuts (auto) 9.1 H Absolute Lymphs (auto) 5.16 H Nucleated RBC % 0 Differential Comment SCANNED Sodium 135 L Potassium 4.8 Chloride 105 Carbon Dioxide 22.0 Anion Gap 8 BUN 7 Creatinine 0.92 Estim Creat Clear Calc 65.22 Est GFR (MDRD) Af Amer 86 Est GFR (MDRD) Non-Af 71 BUN/Creatinine Ratio 7.7 L Glucose 123 H Calcium 10.1 Total Bilirubin 0.60 AST 43 H ALT 37 Alkaline Phosphatase 83 Troponin I High Sens 3 Total Protein 8.3 H Albumin 4.1 Globulin 4.2 Albumin/Globulin Ratio 1.0 TSH 2.34 Serum , Qual Urine Color Urine Clarity Urine pH Ur Specific [place] Urine Protein Urine Glucose (UA) Urine Ketones Urine Occult Blood Urine Nitrite Urine Bilirubin Urine Urobilinogen Ur Leukocyte Esterase Urine Opiates Screen Urine Methadone Screen Ur Barbiturates Screen Ur Phencyclidine Scrn Ur Amphetamines Screen MDMA (Ecstasy) Screen U Benzodiazepines Scrn Urine Cocaine Screen U Cannabinoids Screen Ur Drug Screen Comment Ethyl Alcohol < 3.0 04/07/22 04/07/22 04/07/22 18:50 18:50 18:50 WBC RBC Hgb Hct MCV MCH MCHC RDW Std Deviation RDW Coeff of Nathanael Plt Count MPV Immature Gran % (Auto) Neut % (Auto) Lymph % (Auto) Bennett % (Auto) Eos % (Auto) Baso % (Auto) Absolute Neuts (auto) Absolute Lymphs (auto) Nucleated RBC % Differential Comment Sodium Potassium Chloride Carbon Dioxide Anion Gap BUN Creatinine Estim Creat Clear Calc Est GFR (MDRD) Af Amer Est GFR (MDRD) Non-Af BUN/Creatinine Ratio Glucose Calcium Total Bilirubin AST ALT Alkaline Phosphatase Troponin I High Sens Total Protein Albumin Globulin Albumin/Globulin Ratio TSH Serum , Qual NEGATIVE Urine Color Yellow Urine Clarity Clear Urine pH 6.0 Ur Specific [place] 1.015 Urine Protein Negative Urine Glucose (UA) Normal Urine Ketones Negative Urine Occult Blood Negative Urine Nitrite Negative Urine Bilirubin Negative Urine Urobilinogen Normal Ur Leukocyte Esterase Negative Urine Opiates Screen NEGATIVE Urine Methadone Screen NEGATIVE Ur Barbiturates Screen NEGATIVE Ur Phencyclidine Scrn NEGATIVE Ur Amphetamines Screen POSITIVE H MDMA (Ecstasy) Screen POSITIVE H U Benzodiazepines Scrn NEGATIVE Urine Cocaine Screen NEGATIVE U Cannabinoids Screen NEGATIVE Ur Drug Screen Comment Ethyl Alcohol Radiography Diagnostic Testing: Clinical Impression(s) from Imaging Studies Brain CT 04/07/22 19:15 IMPRESSION: Negative Brain CT without contrast. If concern for acute infarct MRI recommended Electronically Signed: Chris Doan MD at 19:59 EST Reading Location ID and State: [facility] / [place] , Service support , Chest X-Ray 04/07/22 19:40 IMPRESSION: No radiographic evidence of acute cardiopulmonary disease. Electronically Signed: Chris Doan MD at 20:01 EST , Discharge Plan Triage Chief Complaint: Shortness of Breath Other Complaint: Chest Pain ED Provider: Erwin López Dx/Rx/DC Orders Clinical Impression: Confusion, Dyspnea Instructions: ED Confusion, ED Dyspnea Prescriptions: No Action bupropion HCl [Wellbutrin XL] 300 mg tablet extended release 24 hr 300 mg PO QAM venlafaxine 75 MG tablet 75 mg PO TID Label Comments: DEPRESSION dextroamphetamine-amphetamine 10 MG tablet 20 mg PO BID Label Comments: ADHD trazodone 100 MG tablet 200 mg PO QHS Label Comments: SLEEP/DEPRESION levothyroxine 50 mcg tablet 50 mcg PO DAILY Qty: 90 3RF valacyclovir 1 gram tablet 2,000 mg PO BID PRN (Reason: cold sores) 1 Days Qty: 4 12RF Dayvigo 5 mg tablet 5 mg PO QHS Qty: 10 0RF lemborexant 10 mg tablet 10 mg PO QHS Qty: 30 5RF albuterol sulfate [ProAir HFA] 90 mcg/actuation HFA aerosol inhaler 2 puff inhalation Q6H PRN (Reason: shortness of breath or wheezing) Qty: 6.7 12RF tramadol 50 mg tablet 50 mg PO Q8H PRN (Reason: pain) Qty: 30 5RF cyclobenzaprine 10 mg tablet 10 mg PO TID PRN (Reason: muscle spasm) Qty: 60 3RF paroxetine HCl 20 mg tablet 20 mg PO DAILY Qty: 90 3RF benzonatate 200 mg capsule 200 mg PO TID PRN (Reason: cough) Qty: 60 2RF mupirocin 2 % ointment 1 applic topical BID Qty: 15 1RF promethazine 12.5 mg tablet 12.5 mg PO TID PRN (Reason: nausea and vomiting) Qty: 60 1RF ciprofloxacin HCl 500 mg tablet 500 mg PO BID Qty: 20 0RF Primary Care Provider: Ashlee Franco Referrals: Ashlee Franco MD [Primary Care Provider] - Activity Restrictions/Additional Instructions: Go home and get plenty of rest. Drink plenty of oral fluids. Follow-up with your primary care physician on Sunday. Disposition Disposition: Home, Self Care
[2022-04-07 19:27] LABS: Absolute Lymphocyte Count 5.16 X10^3/uL (0.83-4.51); Absolute Neutrophil Count 9.1 X10^3/uL (2.0-7.7); Basophil# 0.09 X10^3/uL; Basophil% 0.6 % (0-1); Eosinophil# 0.14 X10^3/uL; Eosinophils% 0.9 % (0-5); Hematocrit 45.8 % (37-47); Hemoglobin 15.6 g/dL (12.0-15.0); Lymphocyte # 5.16 X10^3/ul (0.83-4.51); Lymphocyte % 33.1 % (19-41); Mean Corp Hgb Conc 34.1 g/dL (32-36); Mean Corpuscular Hgb 30.5 pg (27.0-32.0); Mean Corpuscular Volume 89.6 fL (81-99); Monocyte# 1.09 X10^3/uL; NRBC Flagged by Analyzer 0 % (0-5); Neutrophil # 9.05 X10^3/uL (2.7-7.7); Neutrophil % 57.9 % (47-70); POSITIVE DIFFERENTIAL YES; Platelet Count 415 K/mm3 (150-450); RBC Distribution Width SD 45.7 fl (35.1-43.9); Red Blood Count 5.11 M/mm3 (4.2-5.4); White Blood Count 15.6 K/mm3 (4.4-11.0)
[2022-04-07 19:34] LABS: Differential Indicated SCAN CRITERIA MET
--- NOTE | 2022-04-07 19:40 | RAD_ITS ---
INDICATION: shortness of breath EXAMINATION/TECHNIQUE: X-RAY - XR Chest 1 View COMPARISON: May 24, 2021 FINDINGS: LINES/DEVICES: None. LUNGS: No consolidation, edema or effusion. No pneumothorax. MEDIASTINUM AND CARDIOVASCULAR STRUCTURES: Cardiac silhouette not enlarged. Central airways and mediastinal contour are unremarkable. BONES AND SOFT TISSUES: Unremarkable. RAD/Chest 1 View (Portable) IMPRESSION: No radiographic evidence of acute cardiopulmonary disease. Electronically Signed: Chris Doan MD at 20:01 EST ,
[2022-04-07 19:41] LABS: Alcohol, Blood (Medical)-Serum < 3.0 mg/dL; Internal QC Validated? YES +Cl - CLEAR BKGD; Pregnancy, Serum, hCG Quali. NEGATIVE Negative
[2022-04-07 19:44] LABS: Differential Comment SCANNED
[2022-04-07 19:45] LABS: Amphetamine Urine VISTA POSITIVE (<1000 ng/mL); Barbiturate Urine VISTA NEGATIVE (< 200 ng/mL); Benzodiazepine Urine VISTA NEGATIVE (< 200 ng/mL); Cocaine Urine VISTA NEGATIVE (< 300 ng/mL); Ecstacy Urine VISTA POSITIVE (< 500 ng/mL); Methadone Urine VISTA NEGATIVE (< 300 ng/mL); PCP Urine VISTA NEGATIVE (< 25 ng/mL); THC Urine VISTA NEGATIVE (< 50 ng/mL); Vista UDS pH Range 5
[2022-04-07 20:01] LABS: AST(SGOT) 43 U/L (15-37); Alanine Aminotransfer ALT/SGPT 37 U/L (13-56); Albumin, Serum 4.1 g/dL (3.2-5.0); Alkaline Phosphatase 83 U/L (45-117); Anion Gap 8 (5-15); BUN 7 mg/dL (7-18); BUN/Creat Ratio 7.7 RATIO (10-20); Calcium,Total 10.1 mg/dL (8.5-10.1); Chloride 105 mmol/L (98-107); Creatinine, Serum 0.92 mg/dL (0.55-1.02); EST Glomerular Filtration Rate 71 mL/min (>60); Est Glom Filt Rate - Afr Amer 86 mL/min (>60); Estimated Creatinine Clearance 65.22 ml/min; Globulin 4.2 g/dL (2.2-4.2); Glucose 123 mg/dL (74-106); Potassium 4.8 mmol/L (3.5-5.1); Protein, Total 8.3 g/dL (6.4-8.2); Sodium Level 135 mmol/L (136-145); Thyroid Stim Hormone (TSH) 2.34 uIU/mL (0.358-3.74); Troponin-I HS 3 pg/mL (3.0-54.0)
[2022-04-07 20:19] VITALS: BP 146/88; PULSE 74; O2SAT 97
[2022-04-07 20:24] LABS: Bacteria 0 SEEN /hpf (None Seen); Mucous, Urine 0 SEEN /hpf (<or=2+); Red Blood Cells-Urine 0 SEEN /hpf (0-5); White Blood Cells 0 SEEN /hpf (0-5)
[2022-04-07 20:27] LABS: Color, Urine Yellow (Yellow); Glucose, Dipstick Normal (Normal); Ketone-Dipstick Negative (Negative); Leukocyte Esterase-Dipstick Negative /ul (Negative); Nitrite-Dipstick Negative (Negative); Occult Blood-Urine Negative /ul (Negative); Protein-Dipstick Negative (Negative); Specific Gravity, Urine 1.015 (1.002-1.030); Urine Bilirubin Dipstick Negative (Negative); Urine Clarity Clear (Clear); Urine Urobilinogen Normal (Normal)
[2022-04-07 20:38] LABS: Squamous Epithelial Cells - UA 0-5 SEEN /hpf (5-10)
== END 2022-04-07 20:51 | disposition home or self-care (01) ==
PROVIDERS: Emergency Provider Emergency Medicine; PCP General Practice; Visit Provider Emergency Medicine
DX: R41.0 Disorientation, unspecified (principal); J10.1 Influenza due to other identified influenza virus with other respiratory manifestations; F41.9 Anxiety disorder, unspecified; F90.9 Attention-deficit hyperactivity disorder, unspecified type; F17.210 Nicotine dependence, cigarettes, uncomplicated; R06.00 Dyspnea, unspecified
CPT/HCPCS: 70450; 71045; 80053; 80307; 81001; 82077; 84443; 84484; 84703; 85025; 93005; 99284

== ENCOUNTER → 2022-04-14 | Outpatient (CLI) | payer BC, SELFPAY ==
[2022-04-14 21:33] LABS: Absolute Lymphocyte Count 3.82 X10^3/uL (0.83-4.51); Absolute Neutrophil Count 6.9 X10^3/uL (2.0-7.7); Basophil# 0.07 X10^3/uL; Basophil% 0.6 % (0-1); Eosinophils% 0.9 % (0-5); Hematocrit 44.3 % (37-47); Hemoglobin 14.8 g/dL (12.0-15.0); Lymphocyte # 3.82 X10^3/ul (0.83-4.51); Lymphocyte % 32.8 % (19-41); Mean Corp Hgb Conc 33.4 g/dL (32-36); Mean Corpuscular Hgb 30.5 pg (27.0-32.0); Mean Corpuscular Volume 91.3 fL (81-99); Mean Platelet Vol. 9.5 fl (6.2-12.0); Monocyte# 0.66 X10^3/uL; Monocyte% 5.7 % (0-10); NRBC Flagged by Analyzer 0 % (0-5); Neutrophil # 6.94 X10^3/uL (2.7-7.7); Neutrophil % 59.6 % (47-70); Platelet Count 383 K/mm3 (150-450); RBC Distribution Width SD 46.7 fl (35.1-43.9); Red Blood Count 4.85 M/mm3 (4.2-5.4); White Blood Count 11.6 K/mm3 (4.4-11.0)
[2022-04-14 22:07] LABS: ALB/GLOB Ratio 1.1 RATIO (0.9-2.4); AST(SGOT) 16 U/L (15-37); Alanine Aminotransfer ALT/SGPT 41 U/L (13-56); Albumin, Serum 3.9 g/dL (3.2-5.0); Alkaline Phosphatase 79 U/L (45-117); Anion Gap 3 (5-15); BUN 12 mg/dL (7-18); BUN/Creat Ratio 12.8 RATIO (10-20); Calcium,Total 10.2 mg/dL (8.5-10.1); Chloride 106 mmol/L (98-107); Creatinine, Serum 0.94 mg/dL (0.55-1.02); EST Glomerular Filtration Rate 69 mL/min (>60); Est Glom Filt Rate - Afr Amer 84 mL/min (>60); Globulin 3.6 g/dL (2.2-4.2); Glucose 93 mg/dL (74-106); Potassium 4.2 mmol/L (3.5-5.1); Protein, Total 7.5 g/dL (6.4-8.2); Sodium Level 139 mmol/L (136-145); Thyroid Stim Hormone (TSH) 1.47 uIU/mL (0.358-3.74)
== END | disposition home or self-care (01) ==
PROVIDERS: PCP General Practice; Visit Provider Nurse Practitioner
DX: E03.9 Hypothyroidism, unspecified (principal); D72.829 Elevated white blood cell count, unspecified
CPT/HCPCS: 80053; 84443; 85025

== ENCOUNTER → 2022-07-25 | Outpatient (CLI) | payer BC, SELFPAY ==
[2022-07-25 21:50] LABS: ALB/GLOB Ratio 1.1 RATIO (0.9-2.4); AST(SGOT) 16 U/L (15-37); Alanine Aminotransfer ALT/SGPT 41 U/L (13-56); Albumin, Serum 3.9 g/dL (3.2-5.0); Alkaline Phosphatase 82 U/L (45-117); Anion Gap 6 (5-15); BUN 9 mg/dL (7-18); BUN/Creat Ratio 9.9 RATIO (10-20); Calcium,Total 10.5 mg/dL (8.5-10.1); Chloride 104 mmol/L (98-107); Cholesterol 189 mg/dL (200); Creatinine, Serum 0.91 mg/dL (0.55-1.02); EST Glomerular Filtration Rate 71 mL/min (>60); Est Glom Filt Rate - Afr Amer 86 mL/min (>60); Globulin 3.6 g/dL (2.2-4.2); Glucose 94 mg/dL (74-106); High Density Lipoprotein 51 mg/dL; Potassium 4.1 mmol/L (3.5-5.1); Protein, Total 7.5 g/dL (6.4-8.2); Sodium Level 139 mmol/L (136-145); Thyroid Stim Hormone (TSH) 3.43 uIU/mL (0.358-3.74); Triglycerides 154 mg/dL; Very Low Density Lipoprotein 31 mg/dL (5-40)
== END | disposition home or self-care (01) ==
PROVIDERS: Visit Provider Nurse Practitioner
DX: E03.9 Hypothyroidism, unspecified (principal); E78.00 Pure hypercholesterolemia, unspecified; F98.8 Other specified behavioral and emotional disorders with onset usually occurring in childhood and adolescence
CPT/HCPCS: 80053; 80061; 84439; 84443

== ENCOUNTER → 2022-11-02 | Outpatient (CLI) | payer BC, SELFPAY ==
[2022-11-02 20:31] LABS: Absolute Lymphocyte Count 3.92 X10^3/uL (0.83-4.51); Absolute Neutrophil Count 7.9 X10^3/uL (2.0-7.7); Basophil# 0.06 X10^3/uL; Basophil% 0.5 % (0-1); Eosinophil# 0.08 X10^3/uL; Eosinophils% 0.6 % (0-5); Hematocrit 46.7 % (37-47); Hemoglobin 15.5 g/dL (12.0-15.0); Lymphocyte # 3.92 X10^3/ul (0.83-4.51); Lymphocyte % 30.9 % (19-41); Mean Corp Hgb Conc 33.2 g/dL (32-36); Mean Corpuscular Hgb 30.9 pg (27.0-32.0); Mean Platelet Vol. 9.7 fl (6.2-12.0); Monocyte# 0.73 X10^3/uL; Monocyte% 5.8 % (0-10); NRBC Flagged by Analyzer 0 % (0-5); Neutrophil # 7.85 X10^3/uL (2.7-7.7); Neutrophil % 61.8 % (47-70); Platelet Count 338 K/mm3 (150-450); RBC Distribution Width CV 14.2 % (11.6-14.6); RBC Distribution Width SD 48.3 fl (35.1-43.9); Red Blood Count 5.02 M/mm3 (4.2-5.4); White Blood Count 12.7 K/mm3 (4.4-11.0)
[2022-11-02 20:53] LABS: ALB/GLOB Ratio 1.1 RATIO (0.9-2.4); AST(SGOT) 20 U/L (15-37); Alanine Aminotransfer ALT/SGPT 44 U/L (13-56); Albumin, Serum 3.8 g/dL (3.2-5.0); Alkaline Phosphatase 86 U/L (45-117); Anion Gap 5 (5-15); BUN 7 mg/dL (7-18); BUN/Creat Ratio 8.3 RATIO (10-20); Calcium,Total 10.1 mg/dL (8.5-10.1); Chloride 105 mmol/L (98-107); Cholesterol 180 mg/dL (200); Creatinine, Serum 0.84 mg/dL (0.55-1.02); EST Glomerular Filtration Rate 78 mL/min (>60); Est Glom Filt Rate - Afr Amer 95 mL/min (>60); Globulin 3.6 g/dL (2.2-4.2); Glucose 83 mg/dL (74-106); High Density Lipoprotein 51 mg/dL; Potassium 3.9 mmol/L (3.5-5.1); Protein, Total 7.4 g/dL (6.4-8.2); Sodium Level 138 mmol/L (136-145); T4 Free Direct 1.08 ng/dL (0.76-1.46); Thyroid Stim Hormone (TSH) 1.08 uIU/mL (0.358-3.74); Triglycerides 102 mg/dL; Very Low Density Lipoprotein 20 mg/dL (5-40)
== END | disposition home or self-care (01) ==
PROVIDERS: Referring Provider Nurse Practitioner; Visit Provider Nurse Practitioner
DX: E03.9 Hypothyroidism, unspecified (principal); E78.00 Pure hypercholesterolemia, unspecified; R63.4 Abnormal weight loss
CPT/HCPCS: 80053; 80061; 84439; 84443; 85025

== ENCOUNTER → 2023-02-09 | Outpatient (CLI) | payer BC, SELFPAY ==
[2023-02-09 21:51] LABS: Absolute Lymphocyte Count 4.43 X10^3/uL (0.83-4.51); Absolute Neutrophil Count 10.8 X10^3/uL (2.0-7.7); Basophil# 0.08 X10^3/uL; Basophil% 0.5 % (0-1); Eosinophil# 0.09 X10^3/uL; Eosinophils% 0.6 % (0-5); Hematocrit 43.7 % (37-47); Hemoglobin 14.4 g/dL (12.0-15.0); Lymphocyte # 4.43 X10^3/ul (0.83-4.51); Lymphocyte % 27.1 % (19-41); Monocyte# 0.91 X10^3/uL; Monocyte% 5.6 % (0-10); NRBC Flagged by Analyzer 0 % (0-5); Neutrophil # 10.75 X10^3/uL (2.7-7.7); Neutrophil % 65.6 % (47-70); Platelet Count 376 K/mm3 (150-450); RBC Distribution Width SD 47.7 fl (35.1-43.9); Red Blood Count 4.65 M/mm3 (4.2-5.4); White Blood Count 16.4 K/mm3 (4.4-11.0)
[2023-02-09 22:01] LABS: Vitamin D,25 Hydroxy 31.2 ng/mL
[2023-02-09 22:06] LABS: AST(SGOT) 19 U/L (15-37); Alanine Aminotransfer ALT/SGPT 45 U/L (13-56); Albumin, Serum 3.8 g/dL (3.2-5.0); Alkaline Phosphatase 78 U/L (45-117); Anion Gap 4 (5-15); BUN 13 mg/dL (7-18); Calcium,Total 9.9 mg/dL (8.5-10.1); Chloride 107 mmol/L (98-107); Cholesterol 195 mg/dL (200); Creatinine, Serum 0.87 mg/dL (0.55-1.02); EST Glomerular Filtration Rate 75 mL/min (>60); Est Glom Filt Rate - Afr Amer 91 mL/min (>60); Globulin 3.7 g/dL (2.2-4.2); Glucose 97 mg/dL (74-106); High Density Lipoprotein 50 mg/dL; Potassium 4.2 mmol/L (3.5-5.1); Protein, Total 7.5 g/dL (6.4-8.2); Sodium Level 139 mmol/L (136-145); T4 Free Direct 1.01 ng/dL (0.76-1.46); Thyroid Stim Hormone (TSH) 0.65 uIU/mL (0.358-3.74); Triglycerides 127 mg/dL; Very Low Density Lipoprotein 25 mg/dL (5-40)
== END | disposition home or self-care (01) ==
PROVIDERS: Referring Provider Nurse Practitioner; Visit Provider Nurse Practitioner
DX: E55.9 Vitamin D deficiency, unspecified (principal); F32.A Depression, unspecified; F98.8 Other specified behavioral and emotional disorders with onset usually occurring in childhood and adolescence; E78.00 Pure hypercholesterolemia, unspecified; R53.82 Chronic fatigue, unspecified; E03.9 Hypothyroidism, unspecified
CPT/HCPCS: 80053; 80061; 82306; 84439; 84443; 85025

== ENCOUNTER → 2023-05-18 | Outpatient (CLI) | payer BC, SELFPAY ==
--- OUTSIDE RECORDS SUMMARY | 2023-05-18 22:12 | XMS RPT_ITS | CCD ---
Author Name Unknown Address [address] [place] [address] Organization [facility] Care Team Providers Care Pumper Gauger Name Role Phone Efrem Corrigan MD Unavailable Joanie Franco Unavailable Unavailable Joanie Franco Unavailable Unavailable Joanie Franco Unavailable Unavailable Unavailable Unavailable Unavailable Salvador, Dr. Joanie Zacarias Attending Unavailabl e Salvador, Dr. Joanie Zacarias Referring Unavailabl e Salvador, Dr. Joanie Zacarias Primary Care Unavailabl e Salvador, Dr. Joanie Zacarias Attending Unavailabl e Salvador, Dr. Joanie Zacarias Referring Unavailabl e Salvador, Dr. Joanie Zacarias Primary Care Unavailabl e Salvador, Dr. Joanie Zacarias Attending Unavailabl e Salvador, Dr. Joanie Zacarias Referring Unavailabl e Salvador, Dr. Joanie Zacarias Primary Care Unavailabl Joanie Syed MD Primary Care Provider [phone] Joanie Franco MD Unavailable [phone] JOANIE FRANCO Attending Unavailable JOANIE FRANCO Primary Care Unavailable JOANIE FRANCO Attending Unavailable JOANIE FRANCO Primary Care Unavailable JOANIE FRANCO Attending Unavailable JOANIE FRANCO Primary Care Unavailable JOANIE FRANCO Attending Unavailable JOANIE FRANCO Primary Care Unavailable Medications Current Medications Medication Drug Class(es) Dates Sig (Normalized) Sig (Original) atorvastatin 20 mg oral tablet (20 sources) HMG-CoA Reductase Inhibitor Start: 07-29-2022 End: 02-12-2023 take 1 tablet by mouth once daily atorvastatin (Lipitor) 20 mg tablet Indications: Mixed hyperlipidemia Take 1 tablet (20 mg) by mouth once daily. 90 tablet 1 02/12/2023 Active Completed/Discontinued Medications Medication Drug Class(es) Dates Sig (Normalized) Sig (Original) amitriptyline hydrochloride 50 mg oral tablet (2 sources) Tricyclic Antidepressant Start: 09-05-2019 take 0.5-1 tablets by mouth at bedtime Amitriptyline HCl - 50 MG Oral Tablet TAKE 1/2-1 TABLET AT BEDTIME. Quantity: 90 Refills: 1 Joanie Franco MD Start : 05-Sep-2019 Active 24 hr amphetamine aspartate 5 mg / amphetamine sulfate 5 mg / dextroamphetamine saccharate 5 mg / dextroamphetamine sulfate 5 mg extended release oral capsule (11 sources) Central Nervous System Stimulant Start: 05-13-2013 take 1 capsule by mouth twice daily Amphetamine-Dextr oamphet ER 20 MG Oral Capsule Extended Release 24 Hour take 1 capsule BID Quantity: 60 Refills: 0 Ordered: 17-Aug-2020 Joanie Franco MD Start : 13-May-2013 Active 1.5 ml fremanezumab-vfrm 150 mg/ml auto-injector (14 sources) Ajovy 225 MG/1.5ML Subcutaneous Solution Auto-injector 1 injection monthly Quantity: 0 Refills: 0 Ordered: 06-Jul-2020 DO Active levothyroxine sodium 0.05 mg oral tablet (20 sources) l-Thyroxine Start: 12-05-2019 End: 02-12-2023 take 1 tablet by mouth once daily levothyroxine (Synthroid, Levoxyl) 50 mcg tablet Take 1 tablet (50 mcg) by mouth once daily. 0 12/05/2019 02/12/2023 Discontinued (Dose adjustment) Problems Active Problems Problem Classification Problem Date Documented Date Episodic/Chronic Administrative/social admission (6 sources) Drug therapy finding; Translations: [Encounters for other specified administrative purpose] Onset: 05-14-2023 Episodic Anxiety disorders (20 sources) Anxiety disorder; Translations: [Mixed anxiety and depressive disorder] Onset: 06-22-2022 07-27-2022 Chronic Anxiety disorders (20 sources) Feeling irritable; Translations: [Irritability] Episodic Attention-deficit conduct and disruptive behavior disorders (20 sources) Attention deficit hyperactivity disorder, predominantly inattentive type; Translations: [Attention deficit disorder without mention of hyperactivity] Onset: 06-22-2022 07-29-2022 Chronic Attention-deficit, conduct, and disruptive behavior disorders (2 sources) Attention-deficit hyperactivity disorder, predominantly inattentive type; Translations: [Attention-deficit hyperactivity disorder, predominantly inattentive type] Onset: 02-12-2023 Chronic Disorders of lipid metabolism (20 sources) Hyperlipidemia; Translations: [Other and unspecified hyperlipidemia] Onset: 06-22-2022 07-29-2022 Chronic Mood disorders (20 sources) Depressive disorder; Translations: [Depressive disorder, not elsewhere classified] Onset: 06-22-2022 07-27-2022 Chronic Past or Other Problems Problem Classification Problem Date Documented Da te Episodic/Chronic Mycoses (16 sources) Tinea pedis; Translations: [Dermatophytosis of foot] Onset: 06-22-2022 06-22-2022 Episodic Other skin disorders (20 sources) Skin lesion; Translations: [Unspecified disorder of skin and subcutaneous tissue] Onset: 06-22-2022 06-22-2022 Episodic Other skin disorders (20 sources) Folliculitis; Translations: [Other specified diseases of hair and hair follicles] Onset: 06-22-2022 06-22-2022 Episodic Other skin disorders (20 sources) Inflammatory dermatosis; Translations: [Contact dermatitis and other eczema, unspecified cause] Onset: 06-22-2022 06-22-2022 Episodic Other skin disorders (20 sources) Eruption; Translations: [Rash and other nonspecific skin eruption] Onset: 06-22-2022 06-22-2022 Episodic Other skin disorders (2 sources) Rash and other nonspecific skin eruption; Translations: [Rash and other nonspecific skin eruption] Onset: 06-22-2022 Episodic Other upper respiratory infections (20 sources) Acute sinusitis; Translations: [Sore throat symptom] Onset: 06-22-2022 06-22-2022 Episodic Residual codes; unclassified (20 sources) Insomnia; Translations: [Insomnia, unspecified] Onset: 06-22-2022 06-22-2022 Episodic Residual codes; unclassified (20 sources) Memory impairment; Translations: [Memory loss] Onset: 06-22-2022 06-22-2022 Episodic Skin and subcutaneous tissue infections (20 sources) Impetigo; Translations: [Impetigo] Onset: 06-22-2022 06-22-2022 Episodic Thyroid disorders (20 sources) Disorder of thyroid gland; Translations: [Unspecified disorder of thyroid] Onset: 06-22-2022 06-22-2022 Episodic Unclassified (18 sources) Patient encounter status; Translations: [Screening cholesterol level] Unclassified (1 source) Onset: 02-12-2023 02-12-2023 Viral infection (20 sources) Herpes simplex; Translations: [Herpes simplex without mention of complication] Onset: 06-22-2022 07-29-2022 Episodic NEGATED: Highlighted row has not occurred!Residual codes; unclassified (20 sources) Disease Episodic Results Test Name Value Interpretation Reference Range Facil ity Vital Signs Date Time Vital Sign Value Performing Clinician Facility 02-12-2023 11:28-0500 Body mass index (BMI) [Ratio] 35.14 kg/m2 Joanie Franco MD Work Phone: [facility] 02-12-2023 11:28-0500 Body temperature 98.4 [degF] Joanie rFanco MD Work Phone: [facility] 02-12-2023 11:28-0500 Body weight 84.37 kg Joanie Franco MD Work Phone: [facility] 02-12-2023 11:28-0500 Diastolic blood pressure 74 mm[Hg] Joanie Franco MD Work Phone: [facility] 02-12-2023 11:28-0500 Systolic blood pressure 122 mm[Hg] Joanie Franco MD Work Phone: [facility] 11-07-2022 12:17-0400 Body mass index (BMI) [Ratio] 32.88 kg/m2 Joanie Franco MD Work Phone: [facility] 11-07-2022 12:17-0400 Body temperature 98.4 [degF] Joanie Franco MD Work Phone: [facility] 11-07-2022 12:17-0400 Body weight 78.93 kg Joanie Franco MD Work Phone: [facility] 11-07-2022 12:17-0400 Diastolic blood pressure 82 mm[Hg] Joanie Franco MD Work Phone: [facility] 11-07-2022 12:17-0400 Systolic blood pressure 126 mm[Hg] Joanie Franco MD Work Phone: [facility] 07-27-2022 12:05-0400 Body mass index (BMI) [Ratio] 34.96 kg/m2 Joanie Franco MD Work Phone: [facility] 07-27-2022 12:05-0400 Body temperature 97.5 [degF] Joanie Franco MD Work Phone: [facility] 07-27-2022 12:05-0400 Body weight 83.92 kg Joanie Franco MD Work Phone: [facility] 07-27-2022 12:05-0400 Diastolic blood pressure 84 mm[Hg] Joanie Franco MD Work Phone: [facility] 07-27-2022 12:05-0400 Systolic blood pressure 124 mm[Hg] Joanie Franco MD Work Phone: [facility] 11-25-2021 09:44-0400 Body mass index (BMI) [Ratio] 35.9 kg/m2 Joanie Franco Work Phone: [facility] Work Phone: 11-25-2021 09:44-0400 Body surface area Derived from formula 1.85 m2 Joanie Franco Work Phone: [facility] Work Phone: 11-25-2021 09:44-0400 Body temperature 98.3 [degF] Joanie Franco Work Phone: [facility] Work Phone: 11-25-2021 09:44-0400 Body weight 86.18 kg Joanie Franco Work Phone: [facility] Work Phone: 11-25-2021 09:44-0400 Diastolic blood pressure 84 mm[Hg] Joanie Franco Work Phone: [facility] Work Phone: 11-25-2021 09:44-0400 Systolic blood pressure 130 mm[Hg] Joanie Franco Work Phone: [facility] Work Phone: 08-25-2021 10:51-0400 Body mass index (BMI) [Ratio] 35.9 kg/m2 Joanie Franco Work Phone: [facility] Work Phone: 08-25-2021 10:51-0400 Body surface area Derived from formula 1.85 m2 Joanie Franco Work Phone: [facility] Work Phone: 08-25-2021 10:51-0400 Body temperature 98.5 [degF] Joanie Franco Work Phone: [facility] Work Phone: 08-25-2021 10:51-0400 Body weight 86.18 kg Joanie Franco Work Phone: [facility] Work Phone: 08-25-2021 10:51-0400 Diastolic blood pressure 88 mm[Hg] Joanie Franco Work Phone: [facility] Work Phone: 08-25-2021 10:51-0400 Systolic blood pressure 128 mm[Hg] Joanie Nicert Work Phone: [facility] Work Phone: 03-15-2021 16:02-0500 Body mass index (BMI) [Ratio] 36.85 kg/m2 Joanie Nicert Work Phone: [facility] Work Phone: 03-15-2021 16:02-0500 Body surface area Derived from formula 1.87 m2 Joanie Nicert Work Phone: [facility] Work Phone: 03-15-2021 16:02-0500 Body temperature 98.2 [degF] Jonaie Nicert Work Phone: [facility] Work Phone: 03-15-2021 16:02-0500 Body weight 88.45 kg Joanie Nicert Work Phone: [facility] Work Phone: 03-15-2021 16:02-0500 Diastolic blood pressure 82 mm[Hg] Joanie Nicert Work Phone: [facility] Work Phone: 03-15-2021 16:02-0500 Systolic blood pressure 124 mm[Hg] Joanie Nicert Work Phone: [facility] Work Phone: 09-17-2020 15:36-0400 Body mass index (BMI) [Ratio] 34.77 kg/m2 Joanie Nicert Work Phone: [facility] Work Phone: 09-17-2020 15:36-0400 Body surface area Derived from formula 1.82 m2 Joanie Zacarias Salvador Work Phone: [facility] Work Phone: 09-17-2020 15:36-0400 Body temperature 98.4 [degF] Joanie Franco Work Phone: [facility] Work Phone: 09-17-2020 15:36-0400 Body weight 83.46 kg Joanie Franco Work Phone: [facility] Work Phone: 09-17-2020 15:36-0400 Diastolic blood pressure 78 mm[Hg] Joanie Franco Work Phone: [facility] Work Phone: 09-17-2020 15:36-0400 Systolic blood pressure 124 mm[Hg] Joanie Franco Work Phone: [facility] Work Phone: 03-05-2020 12:33-0500 BMI (Body Mass Index) 34.68 kg/m2 Joanie Franco [facility] Work Phone: 03-05-2020 12:33-0500 Body Temperature 98.1 [degF] Joanie Franco [facility] Work Phone: 03-05-2020 12:33-0500 Body weight 83.26 kg Joanie Franco [facility] Work Phone: 03-05-2020 12:33-0500 BP Diastolic 74 mm[Hg] Joanie Nicert [facility] Work Phone: 03-05-2020 12:33-0500 BP Systolic 130 mm[Hg] Joanie Nicert [facility] Work Phone: 03-05-2020 12:33-0500 BSA (Body Surface Area) 1.82 m2 Joanie Franco [facility] Work Phone: 12-05-2019 12:02-0400 BMI (Body Mass Index) 34.33 kg/m2 Joanie Franco [facility] Work Phone: 12-05-2019 12:02-0400 Body Temperature 98 [degF] Joanie Franco [facility] Work Phone: 12-05-2019 12:02-0400 Body weight 82.42 kg Joanie Franco [facility] Work Phone: 12-05-2019 12:02-0400 BP Diastolic 98 mm[Hg] Joanie Nicert [facility] Work Phone: 12-05-2019 12:02-0400 BP Systolic 136 mm[Hg] Joanie Franco [facility] Work Phone: 12-05-2019 12:02-0400 BSA (Body Surface Area) 1.81 m2 Joanie Franco [facility] Work Phone: 12-05-2019 12:02-0400 Pulse (Heart Rate) 64 /min Joanie Franco [facility] Work Phone: 09-05-2019 13:07-0400 BMI (Body Mass Index) 34.52 kg/m2 Joanie Franco [facility] Work Phone: 09-05-2019 13:07-0400 Body Temperature 98 [degF] Joanie Franco [facility] Work Phone: 09-05-2019 13:07-0400 Body weight 82.87 kg Joanie Franco [facility] Work Phone: 09-05-2019 13:07-0400 BP Diastolic 72 mm[Hg] Joanie Franco [facility] Work Phone: 09-05-2019 13:07-0400 BP Systolic 132 mm[Hg] Joanie Franco [facility] Work Phone: 09-05-2019 13:07-0400 BSA (Body Surface Area) 1.82 m2 Joanie Franco [facility] Work Phone: 05-22-2019 13:04-0500 BMI (Body Mass Index) 35.03 kg/m2 Joanie Franco [facility] Work Phone: 05-22-2019 13:04-0500 Body Temperature 98.3 [degF] Joanie Franco [facility] Work Phone: 05-22-2019 13:04-0500 Body weight 84.1 kg Joanie Franco [facility] Work Phone: 05-22-2019 13:04-0500 BP Diastolic 68 mm[Hg] Joanie Franco [facility] Work Phone: 05-22-2019 13:04-0500 BP Systolic 120 mm[Hg] Joanie Franco [facility] Work Phone: 05-22-2019 13:04-0500 BSA (Body Surface Area) 1.83 m2 Joanie Franco [facility] Work Phone: 10-14-2016 07:14-0400 Body surface area Derived from formula 80.44 mL/min Efrem Corrigan MD [facility] Work Phone: Encounters Encounter Date Encounter Type Care Provider Facility Start: 05-14-2023 End: 05-14-2023 ambulatory [facility] Amb[facility] Start: 02-12-2023 End: 02-12-2023 ambulatory [facility] Ambulatory Start: 02-12-2023 End: 02-12-2023 Office outpatient visit 25 minutes Joanie Franco MD Work Phone: [facility] Procedures Date Procedure Procedure Detail Performing Clinician Start: 05-14-2023 DRUG SCREEN, URINE W ITH REFLEX TO CONFIRMATION JOANIE FRANCO Start: 06-07-2020 Microscopic observat ion [Identifier] in Cervix by Cyto stain Joanie Franco MD Work Phone: Start: 12-05-2019 Lipid panel Joanie Franco Removal of pilonidal cyst An n Deannzaria Franco Work Phone: Plan of Treatment Date Care Activity Detail Author Start: 2028 Zoster Vaccines (1 o f 2) Zoster Vaccines (1 of 2) [facility] Start: 06-08-2023 Screening for malignant neoplasm of cervix [facility] Start: 05-14-2023 End: 05-14-2023 Patient encounter procedure 05/14/2023 10:45 AM EST Office Visit [facility] [address] [place] [address] Joanie Franco MD [address] [facility] [place] [address] [facility] Start: 02-12-2023 End: 02-12-2023 Patient encounter procedure 02/12/2023 11:00 AM EST Office Visit [facility] [address] [place] [address] Joanie Franco MD [address] [facility] [place] [address] [facility] Start: 11-24-2022 Influenza vaccination [facility] Start: 11-07-2022 End: 11-07-2022 Patient encounter procedure 11/07/2022 11:30 AM EDT Office Visit [facility] [address] [place] [address] Joanie Franco MD [address] [facility] [place] [address] [facility] Start: 04-11-2022 FUV, Provider: Joanie Franco, Status: Pen, Time: 10:30 AM [facility], Provider: Joanie Franco, Status: Pen, Time: 10:30 AM [facility] Work Phone: Start: 11-25-2021 FUV, Provider: Joanie Franco, Status: Pen, Time: 9:30 AM [facility], Provider: Joanie Franco, Status: Pen, Time: 9:30 AM [facility] Work Phone: Start: 08-25-2021 FUV, Provider: Joanie Franco, Status: Pen, Time: 10:30 AM [facility], Provider: Joanie Franco, Status: Pen, Time: 10:30 AM [facility] Work Phone: Start: 03-15-2021 FUV, Provider: Joanie Fracno, Status: Pen, Time: 3:15 PM [facility]UV, Provider: Joanie Franco, Status: Pen, Time: 3:15 PM [facility] Work Phone: Start: 01-18-2021 FUV, Provider: Joanie Franco, Status: Pen, Time: 10:45 AM [facility], Provider: Joanie Franco, Status: Pen, Time: 10:45 AM [facility] Work Phone: Start: 12-24-2020 FUV, Provider: Joanie Franco, Status: Pen, Time: 11:30 AM [facility], Provider: Joanie Franco, Status: Pen, Time: 11:30 AM [facility] [place] [facility] Work Phone: Start: 11-16-2020 FUVGENERAL, Provider : Lorenzo Ashford, Status: Pen, Time: 11:00 AM [facility]AL, Provider: Lorenzo Ashford, Status: Pen, Time: 11:00 AM [facility] Work Phone: Start: 09-06-2020 FUV, Provider: Joanie Franco, Status: Pen, Time: 11:15 AM [facility], Provider: Joanie Franco, Status: Pen, Time: 11:15 AM [facility] Work Phone: Start: 08-24-2020 COVID-19 Vaccine (3 - Booster for Pfizer series) COVID-19 Vaccine (3 - Booster for Pfizer series) [facility] Start: 08-24-2020 COVID-19 Vaccine (3 - Pfizer series) COVID-19 Vaccine (3 - Pfizer series) [facility] Start: 2018 Screening for malignant neoplasm of breast Mammogram [facility] Start: 11-18-2012 Hepatitis B Vaccines (3 of 3 - 19+ 3-dose series) Hepatitis B Vaccines (3 of 3 - 19+ 3-dose series) [facility] Start: 09-25-2012 Hepatitis B Vaccines (3 of 3 - 19+ 3-dose series) Hepatitis B Vaccines (3 of 3 - 19+ 3-dose series) [facility] Start: 2000 DTaP/Tdap/Td Vaccine s (1 - Tdap) DTaP/Tdap/Td Vaccines (1 - Tdap) [facility] Start: 08-30-1999 Screening for malignant neoplasm of cervix [facility] Start: 1996 Hepatitis C screening Hepatitis C Sc reening [facility] Start: 08-30-1979 MMR Vaccines (1 of 1 - Standard series) MMR Vaccines (1 of 1 - Standard series) [facility] Start: 1978 HIV screening HIV Screening [facility] Start: 1978 Lipid panel Lipid Panel [facility] Start: 1978 Thyroid stimulating hormone measurement TSH Level [facility] Start: 1978 Yearly Adult Physical Yearly Adult P [facility] Work Phone: NEGATED: Highlighted row has been ruled out! Planned Goals not documented [facility] Work Phone: Immunizations Immunization Date Immunization Notes Care Provider Agnes warren 06-29-2020 Pfizer-BioNTech COVI D-19 Vacc 30 MCG/0.3ML Intramuscular Suspension Joanie Franco Work Phone: [facility] Work Phone: 06-08-2020 Pfizer-BioNTech COVI D-19 Vacc 30 MCG/0.3ML Intramuscular Suspension Joanie Zacarias Salvador Work Phone: [facility] Work Phone: 06-18-2012 hepatitis B vaccine, adult dosage; Translations: [Hepatitis B] NataliyaDeann Franco [facility] Work Phone: Payers Date Payer Category Payer Unknown 2021 Unknown [id number] 1980 Unknown [id number] [id number] 1978 Unknown [id number] [id number]. [id number] 1978 Unknown [id number] 2.16. [id number] 1978 Unknown [id number] [id number] 1978 Unknown [id number] [id number] 1978 Unknown [id number] [id number] 1978 Unknown [id number] Social History Date Type Detail Facility Start: 07-27-2022 End: 02-12-2023 Marital History - Currently Marital History - Currently [facility] Work Phone: Start: 07-27-2022 Tobacco smoking status NHIS Never smoked tobacco [facility] Work Phone: Start: 07-27-2022 Tobacco use and exposure Smokeless tobacco non-user [facility] Work Phone: Start: 07-27-2022 End: 02-12-2023 Alcohol intake Lifetime non-drinker (finding) [facility] Work Phone: Start: 07-27-2022 End: 02-12-2023 Tobacco use panel [facility] Work Phone: Start: 1980 [facility] Start: 07-17-2022 End: 02-12-2023 Exposure to SARS-CoV-2 (event) Not sure [facility] NEGATED: Highlighted row - - [facility] Work Phone: NEGATED: Highlighted rowStart: NINF History of tobacco use Passive smoker [facility] Work Phone: Functional Status Date Assessment Result Facility NEGATED: Highlighted row Functional performance Functional status health issues are not documented Disease [facility] Work Phone: Mental Status Date Assessment Result Facility NEGATED: Highlighted row Cognitive function [Interpretation] Cognitive status health issues are not documented Disease [facility] Work Phone: Clinical Notes 09-17-2020 to 02-12-2023 Joanie Franco MD - 02/12/2023 11:00 AM Christine Franco MD - 11/07/2022 11:30 AM Vicky Franco MD - 07/27/2022 11:45 AM EDT Note Date & Type Note Facility 02-12-2023 History of Present illness Narrative Subjective Patient ID: Bin Goddard is a 42 y.o. female who presents for Follow-up (EP. Here for follow up on ADD and medication). HPI Feels well, no specific complaints or concerns today. Doing well on all her medications Pt states she had recent bw done and will fax results to me Review of Systems Genl: The patient has been in good health without recent weight change, fevers, or night sweats CVS: No chest pain, irregular heartbeat, shortness of breath, or swollen ankles Resp: No cough or difficulty breathing GI: No change in bowel habits or abdominal pain. No heartburn : No urinary problems. Objective Visit Vitals BP 122/74 Temp 36.9 C (98.4 F) (Oral) Physical Exam Alert, well-appearing. Neck: Supple. No palpable masses. Thyroid was not enlarged. CVS: RRR, no murmurs. Respiratory: Clear and equal breath sounds. GI: Soft, nontender, no masses or hepatosplenomegaly. Assessment/Plan Diagnoses and all orders for this visit: Mixed hyperlipidemia - atorvastatin (Lipitor) 20 mg tablet; Take 1 tablet (20 mg) by mouth once daily. Depression, unspecified depression type - traZODone (Desyrel) 100 mg tablet; Take 2 tablets (200 mg) by mouth once daily at bedtime. - venlafaxine XR (Effexor-XR) 75 mg 24 hr capsule; Take 3 capsules (225 mg) by mouth once daily. - buPROPion XL (Wellbutrin XL) 300 mg 24 hr tablet; Take 1 tablet (300 mg) by mouth once daily. Anxiety disorder, unspecified type - venlafaxine XR (Effexor-XR) 75 mg 24 hr capsule; Take 3 capsules (225 mg) by mouth once daily. Attention deficit hyperactivity disorder (ADHD), predominantly inattentive type - lisdexamfetamine (Vyvanse) 50 mg capsule; Take 1 capsule (50 mg) by mouth once daily. Take in the morning Thyroid disease Joanie Franco MD Family Medicine [facility] documented in this encounter [facility] Work Phone: 11-07-2022 History of Present illness Narrative Subjective Patient ID: Bin Goddard is a 42 y.o. female who presents for Follow-up (EP. Here for follow on medications.). HPI Feels well, no specific complaints or concerns today. Review of Systems Genl: The patient has been in good health without recent weight change, fevers, or night sweats CVS: No chest pain, irregular heartbeat, shortness of breath, or swollen ankles Resp: No cough or difficulty breathing GI: No change in bowel habits or abdominal pain. No heartburn : No urinary problems. Objective Visit Vitals BP 126/82 Temp 36.9 C (98.4 F) (Oral) Physical Exam Alert, well-appearing. CVS: RRR, no murmurs. Respiratory: Clear and equal breath sounds. GI: Soft, nontender. Reviewed labs and all WNL (patient had them on her phone) Assessment/Plan Diagnoses and all orders for this visit: Mixed hyperlipidemia - atorvastatin (Lipitor) 20 mg tablet; Take 1 tablet (20 mg) by mouth once daily. Depression, unspecified depression type - buPROPion XL (Wellbutrin XL) 300 mg 24 hr tablet; Take 1 tablet (300 mg) by mouth once daily. - traZODone (Desyrel) 100 mg tablet; Take 2 tablets (200 mg) by mouth once daily at bedtime. - venlafaxine XR (Effexor-XR) 75 mg 24 hr capsule; Take 3 capsules (225 mg) by mouth once daily. Recurrent cold sores Anxiety disorder, unspecified type - venlafaxine XR (Effexor-XR) 75 mg 24 hr capsule; Take 3 capsules (225 mg) by mouth once daily. Thyroid disease Joanie Franco MD Family Medicine [facility] documented in this encounter [facility] Work Phone: 07-27-2022 History of Present illness Narrative Subjective Patient ID: Bin Goddard is a 41 y.o. female who presents for ADHD (EP. Here for follow up on ADHD and medication). HPI Doing well, no complaints today Had recent bw done/ordered by [employer] (whom she works for)- Varsha prescribes her thyroid medication; labs reviewed Review of Systems Genl: The patient has been in good health without recent weight change, fevers, or night sweats CVS: No chest pain, irregular heartbeat, shortness of breath, or swollen ankles Resp: No cough or difficulty breathing GI: No change in bowel habits or abdominal pain. No heartburn : No urinary problems. Objective Visit Vitals BP 124/84 Temp 36.4 C (97.5 F) (Oral) Physical Exam Alert, well-appearing CVS RRR, no murmurs Resp clear Abd soft, NT, no masses or HSM Assessment/Plan Diagnoses and all orders for this visit: Depression, unspecified depression type Anxiety disorder, unspecified type Attention deficit hyperactivity disorder (ADHD), predominantly inattentive type Joanie Franco MD Family Medicine [facility] documented in this encounter [facility] Work Phone: 04-07-2022 History of Present illness Narrative EP. Here for follow up on ADHD and medication.Bin is a 41 year old female presenting today for a follow up of her ADHD and medication refills.-Valentine was seen-Reports having to call 911 and being brought to the [facility] on 04/07. This was due to severe confusion, numbness, and dyspnea.-States her symptoms proceeded to get worse after calling.-At the ER she states they found nothing wrong but was put on multiple antibiotics.-She had a CT scan of the head and CXR.- states she would have outbursts while they are at the hospital.-Prior to this reports she was yelled at at work and thinks this may have triggered her anxiety.-Taking all of her medications as prescribed.-Still having a little brain fog. [facility] Work Phone: 04-07-2022 History of Present illness Narrative EP. Here for follow up on ADHD and medication.Bin is a 41 year old female presenting today for a follow up of her ADHD and medication refills.-Patient was seen on 04/07/22 at [facility]-Reports having to call 911 and being brought to [facility] on 04/07. This was due to severe confusion, numbness, and dyspnea.-States her symptoms proceeded to get worse after calling.-At the ER she states they found nothing wrong-She had a CT scan of the head and CXR.- states she would have outbursts while they were at the hospital- she does not recall this-Prior to this reports she was yelled at at work and thinks this may have triggered her anxiety.-Taking all of her medications as prescribed.-Still having a little brain fog.-Denies any drug use [facility] Work Phone: 01-26-2021 History of Present illness Narrative FUV. Needs medication refills sent to [facility].States she feels Adderall is not working very well for her.Reports losing focus at work.She is currently taking 2 capsules of Adderall in the morning.States her mood has been good.She is doing well on Wellbutrin and Venlafaxine. [facility] Work Phone: 09-17-2020 History of Present illness Narrative FUV. Needs medication refills sent to [facility].States she is doing well.States she feels Adderall is not working very well for her.Reports losing focus at work.She is currently taking 2 capsules of Adderall in the morning.States her mood has been good.She is doing well on Wellbutrin and Venlafaxine. [facility] Work Phone: documented in this encounter [facility] Work Phone: Evaluation note* Diagnosis Mixed hyperlipidemia- Primary Depression, unspecified depression type Recurrent cold sores Herpes simplex without mention of complication Anxiety disorder, unspecified type Thyroid disease Unspecified disorder of thyroid documented in this encounter [facility] Work Phone: Evaluation note* Diagnosis Mixed hyperlipidemia- Primary Depression, unspecified depression type Anxiety disorder, unspecified type Attention deficit hyperactivity disorder (ADHD), predominantly inattentive type Thyroid disease Unspecified disorder of thyroid documented in this encounter [facility] Work Phone: History of Present illness Narrative* EP here for Follow up visit and medication * Bin is a 40 year old female presenting for a follow up visit. * - Feels well, no specific complaints or concerns. * - She was compliant with atorvastatin, but ran out so has not been taking it. * - Doing well on Wellbutrin and Venlafaxine. * - Continues to take Trazodone - 2 at bedtime. [facility] Work Phone: History of Present illness Narrative* EP. Here for follow up and medication. * Bin is a 40 year old female presenting today for a routine follow up and medication check. * -She has been feeling fatigued a lot lately, but is otherwise feeling well. * -Concerned about not being able to lose weight. * -Compliant with all of her current medications and regimens. * -Does not eat much red meat. [facility] Work Phone: History of Present illness Narrative* EP. Here for follow up on ADD and medication. * Pt is doing well * only complaint today is rash on foot , reports great toenail fungus on the one foot as well * did not get bw done yet but intends to * med list reviewed [facility] Work Phone: Family History No Family History Records FoundUnknown Family Member Name Dates Details Family history of No Signifi cant Family History Comments:Family History Status:Active Unknown Family Member Name Dates Details Family history of No Signifi cant Family History Comments:Family History Status:Active Unknown Family Member Name Dates Details Family history of No Signifi cant Family History Comments:Family History Status:Active Unknown Family Member Name Dates Details Family history of No Signifi cant Family History Comments:Family History Status:Active Unknown Family Member Name Dates Details Family history of No Signifi cant Family History Comments:Family History Status:Active Unknown Family Member Name Dates Details Family history of No Signifi cant Family History Comments:Family History Status:Active Unknown Family Member Name Dates Details Family history of No Signifi cant Family History Comments:Family History Status:Active Unknown Family Member Name Dates Details Family history of No Signifi cant Family History Comments:Family History Status:Active Unknown Family Member Name Dates Details Family history of No Signifi cant Family History Comments:Family History Status:Active Unknown Family Member Name Dates Details No Significant Family Histor y: Family History Status:Active Family history of dementia: Maternal Grandmother(V17.2, Z81.8) Status:Active Family history of memory los s: Maternal Grandfather(V17.2, Z82.0) Status:Active Unknown Family Member Name Dates Details No Significant Family Histor y: Family History Status:Active Family history of dementia: Maternal Grandmother(V17.2, Z81.8) Status:Active Family history of memory los s: Maternal Grandfather(V17.2, Z82.0) Status:Active Unknown Family Member Name Dates Details No Significant Family Histor y: Family History Status:Active Family history of dementia: Maternal Grandmother(V17.2, Z81.8) Status:Active Family history of memory los s: Maternal Grandfather(V17.2, Z82.0) Status:Active Unknown Family Member Name Dates Details Family history of dementia: Maternal Grandmother(V17.2, Z81.8) Status:Active Family history of memory los s: Maternal Grandfather(V17.2, Z82.0) Status:Active No Significant Family Histor y: Family History Status:Active Unknown Family Member Name Dates Details No Significant Family Histor y: Family History Status:Active Family history of dementia: Maternal Grandmother(V17.2, Z81.8) Status:Active Family history of memory los s: Maternal Grandfather(V17.2, Z82.0) Status:Active Unknown Family Member Name Dates Details No Significant Family Histor y: Family History Status:Active Family history of dementia: Maternal Grandmother(V17.2, Z81.8) Status:Active Family history of memory los s: Maternal Grandfather(V17.2, Z82.0) Status:Active Unknown Family Member Name Dates Details No Significant Family Histor y: Family History Status:Active Family history of dementia: Maternal Grandmother(V17.2, Z81.8) Status:Active Family history of memory los s: Maternal Grandfather(V17.2, Z82.0) Status:Active Unknown Family Member Name Dates Details No Significant Family Histor y: Family History Status:Active Family history of dementia: Maternal Grandmother(V17.2, Z81.8) Status:Active Family history of memory los s: Maternal Grandfather(V17.2, Z82.0) Status:Active Unknown Family Member Name Dates Details Family history of dementia: Maternal Grandmother(V17.2, Z81.8) Status:Active Family history of memory los s: Maternal Grandfather(V17.2, Z82.0) Status:Active No Significant Family Histor y: Family History Status:Active Unknown Family Member Name Dates Details No Significant Family Histor y: Family History Status:Active Family history of dementia: Maternal Grandmother(V17.2, Z81.8) Status:Active Family history of memory los s: Maternal Grandfather(V17.2, Z82.0) Status:Active Unknown Family Member Name Dates Details Family history of dementia: Maternal Grandmother(V17.2, Z81.8) Status:Active Family history of memory los s: Maternal Grandfather(V17.2, Z82.0) Status:Active No Significant Family Histor y: Family History Status:Active Unknown Family Member Name Dates Details No Significant Family Histor y: Family History Status:Active Family history of dementia: Maternal Grandmother(V17.2, Z81.8) Status:Active Family history of memory los s: Maternal Grandfather(V17.2, Z82.0) Status:Active Unknown Family Member Name Dates Details No Significant Family Histor y: Family History Status:Active Family history of dementia: Maternal Grandmother(V17.2, Z81.8) Status:Active Family history of memory los s: Maternal Grandfather(V17.2, Z82.0) Status:Active Unknown Family Member Name Dates Details Family history of dementia: Maternal Grandmother(V17.2, Z81.8) Status:Active Family history of memory los s: Maternal Grandfather(V17.2, Z82.0) Status:Active No Significant Family Histor y: Family History Status:Active Unknown Family Member Name Dates Details Family history of dementia: Maternal Grandmother(V17.2, Z81.8) Status:Active Family history of memory los s: Maternal Grandfather(V17.2, Z82.0) Status:Active No Significant Family Histor y: Family History Status:Active Unknown Family Member Name Dates Details No Significant Family Histor y: Family History Status:Active Family history of dementia: Maternal Grandmother(V17.2, Z81.8) Status:Active Family history of memory los s: Maternal Grandfather(V17.2, Z82.0) Status:Active Unknown Family Member Name Dates Details Family history of memory los s: Maternal Grandfather(V17.2, Z82.0) Status:Active Family history of dementia: Maternal Grandmother(V17.2, Z81.8) Status:Active No Significant Family Histor y: Family History Status:Active Unknown Family Member Name Dates Details No Significant Family Histor y: Family History Status:Active Family history of dementia: Maternal Grandmother(V17.2, Z81.8) Status:Active Family history of memory los s: Maternal Grandfather(V17.2, Z82.0) Status:Active Unknown Family Member Name Dates Details No Significant Family Histor y: Family History Status:Active Family history of dementia: Maternal Grandmother(V17.2, Z81.8) Status:Active Family history of memory los s: Maternal Grandfather(V17.2, Z82.0) Status:Active Unknown Family Member Name Dates Details Family history of dementia: Maternal Grandmother(V17.2, Z81.8) Status:Active Family history of memory los s: Maternal Grandfather(V17.2, Z82.0) Status:Active No Significant Family Histor y: Family History Status:Active Unknown Family Member Name Dates Details No Significant Family Histor y: Family History Status:Active Family history of dementia: Maternal Grandmother(V17.2, Z81.8) Status:Active Family history of memory los s: Maternal Grandfather(V17.2, Z82.0) Status:Active Unknown Family Member Name Dates Details Family history of dementia: Maternal Grandmother(V17.2, Z81.8) Status:Active Family history of memory los s: Maternal Grandfather(V17.2, Z82.0) Status:Active No Significant Family Histor y: Family History Status:Active Unknown Family Member Name Dates Details No Significant Family Histor y: Family History Status:Active Family history of dementia: Maternal Grandmother(V17.2, Z81.8) Status:Active Family history of memory los s: Maternal Grandfather(V17.2, Z82.0) Status:Active Unknown Family Member Name Dates Details Family history of dementia: Maternal Grandmother(V17.2, Z81.8) Status:Active Family history of memory los s: Maternal Grandfather(V17.2, Z82.0) Status:Active No Significant Family Histor y: Family History Status:Active Unknown Family Member Name Dates Details Family history of dementia: Maternal Grandmother(V17.2, Z81.8) Status:Active Family history of memory los s: Maternal Grandfather(V17.2, Z82.0) Status:Active No Significant Family Histor y: Family History Status:Active Unknown Family Member Name Dates Details No Significant Family Histor y: Family History Status:Active Family history of dementia: Maternal Grandmother(V17.2, Z81.8) Status:Active Family history of memory los s: Maternal Grandfather(V17.2, Z82.0) Status:Active Unknown Family Member Name Dates Details Family history of dementia: Maternal Grandmother(V17.2, Z81.8) Status:Active Family history of memory los s: Maternal Grandfather(V17.2, Z82.0) Status:Active No Significant Family Histor y: Family History Status:Active Summary Purpose Advance Directives No Advanced Directives Records FoundNo Advanced Directives Records FoundNo Advanced Directives Records Found Additional Source Comments INFORMATION SOURCE (unrecogn ized section and content) DATE CREATED AUTHOR AUTHOR'S ORGANIZ ATION 05/19/2022 [facility] DATE CREATED AUTHOR AUTHOR'S ORGANIZ ATION 05/15/2023 [facility] Reason for Visit (unrecogniz ed section and content) Reason Comments Follow-up EP. Here for follow on medications. Reason Comments Follow-up EP. Here for follow up on ADD and medication Care Teams (unrecognized sec tion and content) Pumper Gauger Relationship Specialty Start Date End Date Joanie Franco MD [address] [facility], [address] [place] [address] PCP - General 05/19/10 Joanie Franco MD [address] [facility], [address] [place] [address] PCP - [facility] PCP 04/26/21 Pumper Gauger Relationship Specialty Start Date End Date Joanie Franco MD [address] [facility], [address] [place] [address] PCP - General 05/19/10 Joanie Franco MD [address] [facility], [address] [place] [address] PCP - Alfredo MUNOZO PCP 04/26/21 FOR RECORDS PERTAINING TO PATIENTS WHO ARE OR HAVE BEEN ENROLLED IN A CHEMICAL DEPENDENCY/SUBSTANCEABUSE PROGRAM, SOME INFORMATION MAY BE OMITTED. This clinical summary was aggregated from multiple sources. Caution should be exercised in using it in the provision of clinical care. This summary normalizes information from multiple sources, and as a consequence, information in this document may materially change the coding, format and clinical context of patient data. In addition, data may be omitted in some cases. CLINICAL DECISIONS SHOULD BE BASED ON THE PRIMARY CLINICAL RECORDS. [employer] [facility]. provides no warranty or guarantee of the accuracy or completeness of information in this document.
[2023-05-18 22:45] LABS: ALB/GLOB Ratio 1.2 RATIO (0.9-2.4); AST(SGOT) 14 U/L (15-37); Alanine Aminotransfer ALT/SGPT 33 U/L (13-56); Albumin, Serum 4.2 g/dL (3.2-5.0); Alkaline Phosphatase 80 U/L (45-117); Anion Gap 3 (5-15); BUN 7 mg/dL (7-18); BUN/Creat Ratio 7.9 RATIO (10-20); Calcium,Total 10.4 mg/dL (8.5-10.1); Chloride 105 mmol/L (98-107); Cholesterol 195 mg/dL (200); Creatinine, Serum 0.88 mg/dL (0.55-1.02); EST Glomerular Filtration Rate 74 mL/min (>60); Est Glom Filt Rate - Afr Amer 89 mL/min (>60); Globulin 3.6 g/dL (2.2-4.2); Glucose 80 mg/dL (74-106); High Density Lipoprotein 58 mg/dL; Potassium 3.8 mmol/L (3.5-5.1); Protein, Total 7.8 g/dL (6.4-8.2); Sodium Level 137 mmol/L (136-145); T4 Free Direct 1.04 ng/dL (0.76-1.46); Thyroid Stim Hormone (TSH) 2.63 uIU/mL (0.358-3.74); Triglycerides 87 mg/dL; Very Low Density Lipoprotein 17 mg/dL (5-40)
[2023-05-22 11:09] LABS: Vitamin D 1,25-Dihydroxy 45.3 pg/mL (24.8-81.5)
== END | disposition home or self-care (01) ==
PROVIDERS: Visit Provider Nurse Practitioner
DX: E55.9 Vitamin D deficiency, unspecified (principal); F98.8 Other specified behavioral and emotional disorders with onset usually occurring in childhood and adolescence; E03.9 Hypothyroidism, unspecified; E78.00 Pure hypercholesterolemia, unspecified
CPT/HCPCS: 80053; 80061; 82652; 84439; 84443

== ENCOUNTER → 2023-08-22 | Outpatient (CLI) | payer BC, SELFPAY ==
[2023-08-22 22:15] LABS: Absolute Lymphocyte Count 4.36 X10^3/uL (0.83-4.51); Absolute Neutrophil Count 12.1 X10^3/uL (2.0-7.7); Basophil# 0.08 X10^3/uL; Basophil% 0.4 % (0-1); Eosinophil# 0.02 X10^3/uL; Eosinophils% 0.1 % (0-5); Hematocrit 49.4 % (37-47); Hemoglobin 16.3 g/dL (12.0-15.0); Lymphocyte # 4.36 X10^3/ul (0.83-4.51); Lymphocyte % 24.5 % (19-41); Mean Corpuscular Volume 90.8 fL (81-99); Mean Platelet Vol. 9.6 fl (6.2-12.0); Monocyte# 1.09 X10^3/uL; Monocyte% 6.1 % (0-10); NRBC Flagged by Analyzer 0 % (0-5); Neutrophil # 12.14 X10^3/uL (2.7-7.7); Neutrophil % 68.3 % (47-70); Platelet Count 355 K/mm3 (150-450); RBC Distribution Width CV 13.6 % (11.6-14.6); RBC Distribution Width SD 45.3 fl (35.1-43.9); Red Blood Count 5.44 M/mm3 (4.2-5.4); White Blood Count 17.8 K/mm3 (4.4-11.0)
[2023-08-22 22:39] LABS: ALB/GLOB Ratio 1.1 RATIO (0.9-2.4); AST(SGOT) 18 U/L (15-37); Alanine Aminotransfer ALT/SGPT 32 U/L (13-56); Albumin, Serum 4.3 g/dL (3.2-5.0); Alkaline Phosphatase 76 U/L (45-117); Anion Gap 10 (5-15); BUN 9 mg/dL (7-18); BUN/Creat Ratio 8.7 RATIO (10-20); Calcium,Total 10.3 mg/dL (8.5-10.1); Chloride 104 mmol/L (98-107); Cholesterol 253 mg/dL (200); Creatinine, Serum 1.04 mg/dL (0.55-1.02); EST Glomerular Filtration Rate 61 mL/min (>60); Est Glom Filt Rate - Afr Amer 74 mL/min (>60); Glucose 67 mg/dL (74-106); High Density Lipoprotein 56 mg/dL; Potassium 3.5 mmol/L (3.5-5.1); Protein, Total 8.3 g/dL (6.4-8.2); Sodium Level 139 mmol/L (136-145); Thyroid Stim Hormone (TSH) 4.38 uIU/mL (0.358-3.74); Triglycerides 218 mg/dL; Very Low Density Lipoprotein 44 mg/dL (5-40)
[2023-08-22 22:49] LABS: Hemoglobin A1c 5.4 % (3.8-5.6)
[2023-08-24 15:09] LABS: EBV Acute VCA IgM < 36.0 U/mL (0.0-35.9); EBV Nuclear Antigen IgG > 600.0 U/mL (0.0-17.9)
== END | disposition home or self-care (01) ==
PROVIDERS: Visit Provider Nurse Practitioner
DX: F33.42 Major depressive disorder, recurrent, in full remission (principal); E03.9 Hypothyroidism, unspecified; F51.01 Primary insomnia
CPT/HCPCS: 80053; 80061; 82533; 83036; 84443; 85025; 86664; 86665

== ENCOUNTER → 2023-10-12 | Outpatient (CLI) | payer BC, SELFPAY ==
[2023-10-12 20:51] LABS: Thyroid Stim Hormone (TSH) 0.66 uIU/mL (0.358-3.74)
[2023-10-15 15:08] LABS: EBV Acute VCA IgM < 36.0 U/mL (0.0-35.9); EBV Nuclear Antigen IgG > 600.0 U/mL (0.0-17.9)
== END | disposition home or self-care (01) ==
PROVIDERS: PCP Nurse Practitioner; Referring Provider Nurse Practitioner; Visit Provider Nurse Practitioner
DX: E03.9 Hypothyroidism, unspecified (principal); B27.90 Infectious mononucleosis, unspecified without complication
CPT/HCPCS: 84443; 86664; 86665

== ENCOUNTER → 2023-12-07 | Outpatient (CLI) | payer BC, SELFPAY ==
[2023-12-07 23:40] LABS: Absolute Lymphocyte Count 4.34 X10^3/uL (0.83-4.51); Absolute Neutrophil Count 6.6 X10^3/uL (2.0-7.7); Basophil# 0.06 X10^3/uL; Basophil% 0.5 % (0-1); Eosinophil# 0.01 X10^3/uL; Eosinophils% 0.1 % (0-5); Hematocrit 44.3 % (37-47); Hemoglobin 14.8 g/dL (12.0-15.0); Lymphocyte # 4.34 X10^3/ul (0.83-4.51); Lymphocyte % 36.5 % (19-41); Mean Corp Hgb Conc 33.4 g/dL (32-36); Mean Corpuscular Hgb 30.5 pg (27.0-32.0); Mean Corpuscular Volume 91.2 fL (81-99); Mean Platelet Vol. 10.1 fl (6.2-12.0); Monocyte# 0.86 X10^3/uL; Monocyte% 7.2 % (0-10); NRBC Flagged by Analyzer 0 % (0-5); Neutrophil # 6.59 X10^3/uL (2.7-7.7); Neutrophil % 55.5 % (47-70); Platelet Count 349 K/mm3 (150-450); RBC Distribution Width CV 13.1 % (11.6-14.6); RBC Distribution Width SD 43.7 fl (35.1-43.9); Red Blood Count 4.86 M/mm3 (4.2-5.4); White Blood Count 11.9 K/mm3 (4.4-11.0)
[2023-12-08 00:01] LABS: ALB/GLOB Ratio 1.2 RATIO (0.9-2.4); AST(SGOT) 16 U/L (15-37); Alanine Aminotransfer ALT/SGPT 36 U/L (13-56); Alkaline Phosphatase 70 U/L (45-117); Anion Gap 4 (5-15); BUN 11 mg/dL (7-18); BUN/Creat Ratio 12.4 RATIO (10-20); Calcium,Total 10.3 mg/dL (8.5-10.1); Chloride 103 mmol/L (98-107); Creatinine, Serum 0.89 mg/dL (0.55-1.02); EST Glomerular Filtration Rate 73 mL/min (>60); Est Glom Filt Rate - Afr Amer 88 mL/min (>60); Free T3 2.7 pg/mL (2.18-3.98); Globulin 3.4 g/dL (2.2-4.2); Glucose 84 mg/dL (74-106); Potassium 4.2 mmol/L (3.5-5.1); Protein, Total 7.4 g/dL (6.4-8.2); Sodium Level 137 mmol/L (136-145); T4 Free Direct 1.05 ng/dL (0.76-1.46)
[2023-12-10 17:07] LABS: EBV Acute VCA IgM < 36.0 U/mL (0.0-35.9); EBV Nuclear Antigen IgG > 600.0 U/mL (0.0-17.9)
== END | disposition home or self-care (01) ==
PROVIDERS: PCP Nurse Practitioner; Referring Provider Nurse Practitioner; Visit Provider Nurse Practitioner
DX: E78.00 Pure hypercholesterolemia, unspecified (principal); E03.9 Hypothyroidism, unspecified; F51.01 Primary insomnia; B27.90 Infectious mononucleosis, unspecified without complication
CPT/HCPCS: 80053; 84439; 84443; 84481; 85025; 86664; 86665

== ENCOUNTER → 2024-03-06 | Outpatient (CLI) | payer BC, SELFPAY ==
[2024-03-06 21:05] LABS: Absolute Lymphocyte Count 5.06 X10^3/uL (0.83-4.51); Absolute Neutrophil Count 8.5 X10^3/uL (2.0-7.7); Basophil# 0.11 X10^3/uL; Basophil% 0.8 % (0-1); Eosinophil# 0.05 X10^3/uL; Eosinophils% 0.3 % (0-5); Hematocrit 45.7 % (37-47); Hemoglobin 15.5 g/dL (12.0-15.0); Lymphocyte # 5.06 X10^3/ul (0.83-4.51); Lymphocyte % 34.8 % (19-41); Mean Corp Hgb Conc 33.9 g/dL (32-36); Mean Corpuscular Hgb 30.1 pg (27.0-32.0); Mean Corpuscular Volume 88.7 fL (81-99); Mean Platelet Vol. 9.1 fl (6.2-12.0); Monocyte# 0.73 X10^3/uL; NRBC Flagged by Analyzer 0 % (0-5); Neutrophil # 8.51 X10^3/uL (2.7-7.7); Neutrophil % 58.5 % (47-70); POSITIVE DIFFERENTIAL YES; Platelet Count 452 K/mm3 (150-450); RBC Distribution Width CV 12.9 % (11.6-14.6); Red Blood Count 5.15 M/mm3 (4.2-5.4); White Blood Count 14.5 K/mm3 (4.4-11.0)
[2024-03-06 21:10] LABS: Differential Indicated SCAN CRITERIA MET
[2024-03-06 21:25] LABS: ALB/GLOB Ratio 1.1 RATIO (0.9-2.4); AST(SGOT) 20 U/L (15-37); Alanine Aminotransfer ALT/SGPT 32 U/L (13-56); Albumin, Serum 4.2 g/dL (3.2-5.0); Alkaline Phosphatase 88 U/L (45-117); Anion Gap 8 (5-15); BUN 5 mg/dL (7-18); BUN/Creat Ratio 5.5 RATIO (10-20); Calcium,Total 10.2 mg/dL (8.5-10.1); Chloride 103 mmol/L (98-107); Cholesterol 197 mg/dL (200); EST Glomerular Filtration Rate 72 mL/min (>60); Est Glom Filt Rate - Afr Amer 87 mL/min (>60); Globulin 3.8 g/dL (2.2-4.2); Glucose 84 mg/dL (74-106); High Density Lipoprotein 54 mg/dL; Potassium 4.3 mmol/L (3.5-5.1); Sodium Level 136 mmol/L (136-145); T4 Free Direct 1.27 ng/dL (0.76-1.46); Triglycerides 124 mg/dL; Very Low Density Lipoprotein 25 mg/dL (5-40)
[2024-03-06 21:30] LABS: Hemoglobin A1c 5.6 % (3.8-5.6)
[2024-03-06 21:31] LABS: Differential Comment SCANNED
== END | disposition home or self-care (01) ==
PROVIDERS: PCP Nurse Practitioner; Visit Provider Nurse Practitioner
DX: F41.1 Generalized anxiety disorder (principal); F32.9 Major depressive disorder, single episode, unspecified; R41.840 Attention and concentration deficit; E03.9 Hypothyroidism, unspecified; E78.00 Pure hypercholesterolemia, unspecified; F51.01 Primary insomnia
CPT/HCPCS: 80053; 80061; 83036; 84439; 84443; 84481; 85025

== ENCOUNTER → 2024-06-05 | Outpatient (CLI) | payer BC, SELFPAY ==
[2024-06-05 22:48] LABS: Cholesterol 238 mg/dL (<=200); High Density Lipoprotein 58 mg/dL; Low Density Lipoprotein Calc. 135 mg/dL; Triglycerides 223 mg/dL; Very Low Density Lipoprotein 45 mg/dL (5-40)
[2024-06-05 22:52] LABS: ALB/GLOB Ratio 1.5 RATIO (0.9-2.4); AST(SGOT) 25 U/L (<=31); Alanine Aminotransfer ALT/SGPT 27 U/L (<=34); Albumin, Serum 4.8 g/dL (3.5-5.0); Alkaline Phosphatase 78 U/L (35-104); Anion Gap 16 (5-15); BUN 9 mg/dL (4-19); BUN/Creat Ratio 9.8 RATIO (10-20); Calcium,Total 10.9 mg/dL (7.6-11.0); Carbon Dioxide 22.3 mmol/L (21.0-32.0); Chloride 100 mmol/L (98-108); EST Glomerular Filtration Rate 81 (>60); Globulin 3.2 g/dL (2.2-4.2); Glucose 98 mg/dL (70-99); Protein, Total 8.1 g/dL (5.9-8.4); Sodium Level 138 mmol/L (133-145)
== END | disposition home or self-care (01) ==
PROVIDERS: PCP Nurse Practitioner; Referring Provider Nurse Practitioner; Visit Provider Nurse Practitioner
DX: F41.1 Generalized anxiety disorder (principal); E03.9 Hypothyroidism, unspecified; E78.00 Pure hypercholesterolemia, unspecified; E88.819 Insulin resistance, unspecified
CPT/HCPCS: 80053; 80061; 84439; 84443; 84481

== ENCOUNTER → 2024-08-14 | Outpatient (CLI) | payer BC, SELFPAY ==
[2024-08-15 00:29] LABS: Follicle Stimulating Hormone 2.3 mIU/mL; Luteinizing Hormone 1.4 mIU/mL
[2024-08-15 00:35] LABS: Absolute Lymphocyte Count 4.01 X10^3/uL (0.83-4.51); Absolute Neutrophil Count 8.1 X10^3/uL (2.0-7.7); Basophil# 0.04 X10^3/uL; Basophil% 0.3 % (0-1); Eosinophil# 0.03 X10^3/uL; Eosinophils% 0.2 % (0-5); Hematocrit 47.3 % (37-47); Hemoglobin 15.6 g/dL (12.0-15.0); Lymphocyte # 4.01 X10^3/ul (0.83-4.51); Lymphocyte % 30.7 % (19-41); Mean Corpuscular Hgb 29.9 pg (27.0-32.0); Mean Corpuscular Volume 90.6 fL (81-99); Mean Platelet Vol. 9.7 fl (6.2-12.0); Monocyte# 0.84 X10^3/uL; Monocyte% 6.4 % (0-10); NRBC Flagged by Analyzer 0 % (0-5); Neutrophil # 8.07 X10^3/uL (2.7-7.7); Neutrophil % 61.9 % (47-70); Platelet Count 398 K/mm3 (150-450); RBC Distribution Width CV 12.9 % (11.6-14.6); RBC Distribution Width SD 42.8 fl (35.1-43.9); Red Blood Count 5.22 M/mm3 (4.2-5.4); White Blood Count 13.1 K/mm3 (4.4-11.0)
[2024-08-16 08:08] LABS: PROGESTERONE 6.6 ng/mL (.)
[2024-08-19 14:08] LABS: Estrogen, Total, Serum 181 pg/mL (.)
== END | disposition home or self-care (01) ==
PROVIDERS: PCP Nurse Practitioner; Referring Provider Nurse Practitioner; Visit Provider Nurse Practitioner
DX: E88.819 Insulin resistance, unspecified (principal); F41.1 Generalized anxiety disorder; N95.9 Unspecified menopausal and perimenopausal disorder
CPT/HCPCS: 82672; 83001; 83002; 84144; 84403; 85025

== ENCOUNTER → 2024-10-08 | Outpatient (CLI) | payer BC, SELFPAY ==
--- OUTSIDE RECORDS SUMMARY | 2024-10-09 01:01 | XMS RPT_ITS | CCD ---
Author Organization [facility] Care Team Providers Care Nail Polish Brush Machine Feeder Name Role Phone Shekhar LAM, Efrem Sr Unavailable Joanie Franco Unavailable Unavailable Joanie Franco [...] Unavailabl Joanie Syed MD Primary Care Provider Joanie Franco MD Unavailable JOANIE FRANCO Attending Unavailable JOANIE FRANCO Primary Care Unavailable JOANIE FRANCO Attending Unavailable JOANIE FRANCO Primary Care Unavailable JOANIE FRANCO Attending Unavailable JOANIE FRANCO Primary Care Unavailable Kirit KEYBOARD TEACHER-C, Varsha Primary Care Provider Kirit KEYBOARD TEACHER-C, Varsha Attending Provider [phone] Beth KEYBOARD TEACHER-C, Varsha Referring Provider NAS LAM, BENJI Attending Unavailable SALVADOR, LEATHA Primary Care Unavailable NAS LAM, BENJI Attending Unavailable SALVADOR, LEATHA Primary Care Unavailable TOY PERDOMO MD Referring Unavailable SALVADOR, NAILA Primary Care Unavailable NAS LAM, BENJI Attending Unavailable SALVADOR, NAILA Primary Care Unavailable NAS LAM, BENJI Attending Unavailable SALVADOR, NAILA Primary Care Unavailable SALVADOR, NAILA Primary Care Unavailable MARTHA DO-FACOTILIA DUNLAP Attending Unavail able SALVADOR, NAILA Primary Care Unavailable SALVADOR, NAILA Primary Care Unavailable NAS LAM, BENJI Attending Unavailable SALVADOR, LEATHA Primary Care Unavailable NAS LAM, BENJI Attending Unavailable SALVADOR, LEATHA Primary Care Unavailable Beth KEYBOARD TEACHER-C, Varsha Primary Care Provider Beth KEYBOARD TEACHER-C, Varsha Attending Provider Beth KEYBOARD TEACHER-C, Varsha Referring Provider [phone] Beth KEYBOARD TEACHER, Varsha Primary Care Unavailable Beth KEYBOARD TEACHER, Varsha Attending Unavailable Beth KEYBOARD TEACHER, Varsha Referring Unavailable Beth KEYBOARD TEACHER, Varsha Primary Care Unavailable Beth KEYBOARD TEACHER, Varsha Attending Unavailable Beth KEYBOARD TEACHER, Varsha Primary Care Unavailable Beth KEYBOARD TEACHER, Varsha Attending Unavailable Beth KEYBOARD TEACHER, Varsha Referring Unavailable Beth KEYBOARD TEACHER, Varsha Primary Care Unavailable Beth KEYBOARD TEACHER, Varsha Attending Unavailable Beth KEYBOARD TEACHER, Varsha Referring Unavailable Care Physician, No Primary Primary Care Unava ilable Beth KEYBOARD TEACHER, Varsha Attending Unavailable Beth KEYBOARD TEACHER, Varsha Primary Care Unavailable Beth KEYBOARD TEACHER, Varsha Attending Unavailable Beth KEYBOARD TEACHER, Varsha Referring Unavailable Medications Current Medications Medication Drug Class(es) Dates Sig (Normalized) Sig (Original) [id number] 200 actuat albuterol 0.09 mg/actuat metered dose inhaler (10 sources) beta2-Adrenergic Agonist Start: 08-26-2020 Albuterol Sulfate (Proair Hfa) 90 mcg/actuation HFA aerosol inhaler Active 2 NMA INHALATION EVERY 6 HOURS as needed for shortness of breath or wheezing 6.7 August 26, 2020 12:00am Start: 08-26-2020 take 1 puff(s) by in halation every six hours Albuterol Sulfate (Proair Hfa) 90 mcg/actuation HFA aerosol inhaler Active 2 PUFF INHALATION EVERY 6 HOURS 6.7 August 25, 2020 11:00pm amoxicillin 875 mg / clavulanate 125 mg oral tablet (20 sources) Penicillin-class Antibacterial Start: 02-27-2024 Amoxicillin-Pot Clavulanate 875-125 mg tablet Active 1 {tbl} PO TWICE A DAY February 27, 2024 2:13pm Start: 01-29-2023 End: 08-27-2023 Amoxicillin-Pot Clavulanate 875-125 mg tablet Discontinued 1 {tbl} PO TWICE A DAY June 15, 2023 2:47pm August 27, 2023 9:03pm Start: 01-29-2023 take 1 tablet by cheryl th twice daily Amoxicillin-Pot Clavulanate Active 1 TABLET PO TWICE A DAY January 29, 2023 3:54pm Start: 02-03-2022 End: 02-08-2022 Amoxicillin-Pot Clavulanate 875-125 mg tablet Discontinued 1 {tbl} PO TWICE A DAY February 03, 2022 3:56pm February 08, 2022 8:35pm Start: 02-03-2022 End: 02-08-2022 take 1 tablet by mouth twice daily Amoxicillin-Pot Clavulanate Discontinued 1 TABLET PO TWICE A DAY February 03, 2022 2:56pm February 08, 2022 7:35pm Start: 08-05-2021 End: 10-24-2021 Amoxicillin-Pot Clavulanate 875-125 mg tablet Discontinued 1 {tbl} PO TWICE A DAY August 05, 2021 4:04pm October 24, 2021 8:38pm Start: 08-05-2021 End: 10-24-2021 take 1 tablet by mouth twice daily Amoxicillin-Pot Clavulanate Discontinued 1 TABLET PO TWICE A DAY August 05, 2021 3:04pm October 24, 2021 7:38pm Start: 08-18-2020 End: 05-26-2021 Amoxicillin-Pot Clavulanate 875-125 mg tablet Discontinued 1 {tbl} PO TWICE A DAY March 24, 2021 7:00pm May 26, 2021 9:12pm Start: 08-18-2020 End: 05-26-2021 take 1 tablet by mouth twice daily Amoxicillin-Pot Clavulanate Discontinued 1 TABLET PO TWICE A DAY March 24, 2021 6:00pm May 26, 2021 8:12pm Start: 04-09-2020 End: 05-21-2020 Amoxicillin-Pot Clavulanate 875-125 mg tablet Discontinued 1 {tbl} PO TWICE A DAY April 09, 2020 10:21pm May 21, 2020 8:37pm Start: 04-09-2020 End: 05-21-2020 take 1 tablet by mouth twice daily Amoxicillin-Pot Clavulanate Discontinued 1 TABLET PO TWICE A DAY April 09, 2020 9:21pm May 21, 2020 7:37pm Start: 01-09-2020 End: 03-02-2020 Amoxicillin-Pot Clavulanate 875-125 mg tablet Discontinued 1 {tbl} PO TWICE A DAY January 09, 2020 10:11am March 02, 2020 8:38pm Start: 01-09-2020 End: 03-02-2020 take 1 tablet by mouth twice daily Amoxicillin-Pot Clavulanate Discontinued 1 TABLET PO TWICE A DAY January 09, 2020 9:11am March 02, 2020 7:38pm Start: 05-02-2018 End: 04-24-2019 Amoxicillin-Pot Clavulanate 875-125 mg tablet Discontinued 1 {tbl} PO TWICE A DAY December 06, 2018 5:58pm April 24, 2019 3:19pm Start: 05-02-2018 End: 04-24-2019 take 1 tablet by mouth twice daily Amoxicillin-Pot Clavulanate Discontinued 1 TABLET PO TWICE A DAY December 06, 2018 4:58pm April 24, 2019 2:19pm amphetamine aspartate 2.5 mg / amphetamine sulfate 2.5 mg / dextroamphetamine saccharate 2.5 mg / dextroamphetamine sulfate 2.5 mg oral tablet (20 sources) Central Nervous System Stimulant Start: 10-11-2016 take 2 tablets by mouth twice daily Dextroamphetamine-Amphetamine 10 MG tablet Active 20 mg PO TWICE A DAY October 11, 2016 12:00am Start: 10-11-2016 take 20 mg by mouth twice daily Dextroamphetamine-Amphetamine Active 20 MG PO TWICE A DAY October 10, 2016 11:00pm Start: 05-13-2013 take 1 capsule by [facility] twice daily Amphetamine-Dextroamphet ER 20 MG Oral Capsule Extended Release 24 Hour take 1 capsule BID Quantity: 60 Refills: 0 Ordered: 17-Aug-2020 Joanie Franco MD Start : 13-May-2013 Active atomoxetine 80 mg oral capsule (2 sources) Norepinephrine Reuptake Inhibitor Start: 04-08-2024 take 1 capsule by mouth once daily in the morning Atomoxetine 80 mg capsule Active 80 mg PO EVERY MORNING April 08, 2024 1:00am atorvastatin 20 mg oral tablet (20 sources) HMG-CoA Reductase Inhibitor Start: 12-08-2023 take 1 tablet by mouth once daily atorvastatin (Lipitor) 20 mg tablet Indications: Mixed hyperlipidemia Take 1 tablet (20 mg) by mouth once daily. 90 tablet 1 12/08/2023 Active Start: 07-29-2022 End: 12-06-2023 take 1 tablet by mouth once daily atorvastatin (Lipitor) 20 mg tablet Indications: Mixed hyperlipidemia Take 1 tablet (20 mg) by mouth once daily. 90 tablet 1 08/13/2023 12/06/2023 Discontinued (Reorder) Start: 06-07-2020 End: 07-27-2022 take 1 tablet by mouth once daily Atorvastatin Calcium 20 MG Oral Tablet TAKE 1 TABLET DAILY. Quantity: 90 Refills: 0 Ordered: 20-Oct-2021 Joanie Franco MD Start : 07-Jun-2020 Active benzonatate 200 mg oral capsule (20 sources) Non-narcotic Antitussive Start: 09-01-2020 End: 03-24-2021 take 1 capsule by mouth three times daily as needed for cough Benzonatate 200 mg capsule Active 200 mg PO THREE TIMES A DAY as needed for cough 60 March 24, 2021 7:00pm 24 hr buPROPion hydrochloride 300 mg extended release oral tablet (20 sources) Aminoketone Start: 12-05-2016 End: 12-06-2023 take 1 tablet by mouth once daily in the morning Bupropion Hcl (Wellbutrin Xl) 300 mg tablet extended release 24 hr Active 300 mg PO EVERY MORNING December 14, 2017 12:00am cyclobenzaprine hydrochloride 10 mg oral tablet (10 sources) Muscle Relaxant Start: 11-12-2020 take 1 tablet by mouth three times daily as needed for muscle spasms Cyclobenzaprine 10 mg tablet Active 10 mg PO THREE TIMES A DAY as needed for muscle spasm 60 November 12, 2020 12:00am fluconazole 150 mg oral tablet (20 sources) Azole Antifungal Start: 02-07-2023 Fluconazole 150 mg tablet Active 150 mg PO Every 3 Days February 07, 2023 1:00am may repeat in 3 days Start: 04-24-2019 End: 05-21-2020 Fluconazole 150 mg tablet Discontinued 150 mg PO Every 3 Days April 09, 2020 10:22pm May 21, 2020 8:37pm Take one immediately and may repeat dose in 3 days Start: 05-02-2018 End: 04-24-2019 take 1 tablet by mouth once daily Fluconazole 100 mg tablet Discontinued 100 mg PO daily May 02, 2018 1:00am April 24, 2019 3:19pm hydrOXYzine hydrochloride 10 mg oral tablet (2 sources) Antihistamine Start: 12-27-2023 take 1 tablet by mouth three to four times daily as needed for anxiety Hydroxyzine Hcl 10 mg tablet Active 10 mg PO 3 to 4 times per day as needed for anxiety December 27, 2023 12:00am levothyroxine sodium 0.088 mg oral tablet (20 sources) l-Thyroxine Start: 08-23-2023 take 1 tablet by mouth once daily Levothyroxine 88 mcg tablet Active 88 ug PO DAILY August 23, 2023 12:00am Start: 11-21-2022 End: 08-23-2023 take 1 tablet by mouth once daily Levothyroxine 75 mcg tablet Discontinued 75 ug PO daily November 21, 2022 4:50pm August 23, 2023 2:31pm Start: 07-26-2022 End: 10-24-2022 take 1 tablet by mouth once daily Levothyroxine 75 mcg tablet Discontinued 75 ug PO daily July 26, 2022 12:00am October 23, 2022 12:00am October 24, 2022 12:04am Start: 02-03-2019 End: 02-12-2023 take 1 tablet by mouth once daily Levothyroxine 50 mcg tablet Discontinued 50 ug PO DAILY May 08, 2019 3:21pm July 26, 2022 2:20pm Levothyroxine So dium 137 MCG Oral Tablet Refills: 0 Active lisdexamfetamine dimesylate 50 mg oral capsule (20 sources) Central Nervous System Stimulant Start: 12-08-2023 take 1 capsule by mouth once daily in the morning lisdexamfetamine (Vyvanse) 50 mg capsule Indications: Attention deficit hyperactivity disorder (ADHD), predominantly inattentive type Take 1 capsule (50 mg) by mouth once daily. Take in the morning 30 capsule 12/08/2023 Active Start: 11-13-2023 End: 12-06-2023 take 1 capsule by mouth once daily in the morning lisdexamfetamine (Vyvanse) 50 mg capsule Indications: Attention deficit hyperactivity disorder (ADHD), predominantly inattentive type Take 1 capsule (50 mg) by mouth once daily. Take in the morning 30 capsule 11/13/2023 12/06/2023 Discontinued (Reorder) Start: 08-06-2023 End: 08-13-2023 take 1 capsule by mouth once daily in the morning lisdexamfetamine (Vyvanse) 50 mg capsule Indications: Attention deficit hyperactivity disorder (ADHD), predominantly inattentive type Take 1 capsule (50 mg) by mouth once daily. Take in the morning 30 capsule 08/13/2023 Active Start: 03-21-2023 End: 05-18-2023 take 1 capsule by mouth once daily in the morning lisdexamfetamine (Vyvanse) 50 mg capsule Indications: Attention deficit hyperactivity disorder (ADHD), predominantly inattentive type Take 1 capsule (50 mg) by mouth once daily. Take in the morning 30 capsule 0 05/18/2023 Active Start: 01-03-2023 End: 02-12-2023 take 1 capsule by mouth once daily in the morning lisdexamfetamine (Vyvanse) 50 mg capsule Indications: Attention deficit hyperactivity disorder (ADHD), predominantly inattentive type Take 1 capsule (50 mg) by mouth once daily. Take in the morning 30 capsule 0 02/12/2023 02/12/2023 Discontinued (Reorder) Start: 10-23-2022 take 1 capsule by mo ut once daily in the morning lisdexamfetamine (Vyvanse) 50 mg capsule Indications: Attention deficit hyperactivity disorder (ADHD), predominantly inattentive type Take 1 capsule (50 mg) by mouth once daily. Take in the morning 30 capsule 0 10/23/2022 Active Start: 07-29-2022 take 1 capsule by mo uth once daily in the morning Vyvanse 50 mg capsule Indications: Attention deficit hyperactivity disorder (ADHD), predominantly inattentive type Take 1 capsule (50 mg) by mouth once daily. Take in the morning 30 capsule 0 07/29/2022 Active Start: 06-24-2022 End: 07-27-2022 take 1 capsule by mouth once daily in the morning Vyvanse 50 mg capsule Indications: Attention deficit hyperactivity disorder (ADHD), predominantly inattentive type Take 1 capsule (50 mg) by mouth once daily. Take in the morning 30 capsule 0 06/24/2022 07/27/2022 Discontinued (Reorder) Start: 09-17-2020 take 1 capsule by mo uth once daily in the morning Vyvanse 50 MG Oral Capsule TAKE 1 CAPSULE DAILY IN THE MORNING. Quantity: 30 Refills: 0 Ordered: 23-Mar-2022 Joanie Franco MD Start : 17-Sep-2020 Active mupirocin 0.02 mg/mg topical ointment (10 sources) RNA Synthetase Inhibitor Antibacterial Start: 04-28-2021 Mupirocin 2 % ointment Active 1 NMA TOPICAL TWICE A DAY April 28, 2021 1:00am ofloxacin 3 mg/ml ophthalmic solution (2 sources) Quinolone Antimicrobial Start: 07-26-2023 Ofloxacin 0.3 % drops Active 0 OPHTHALMIC .COMPLEX July 26, 2023 12:00am put 1-2 drps into affected eye(s) every 2-4 h x 2 days, then 1-2 drps 4 times/day days 3-7 ophthalmic (eye) PARoxetine hydrochloride 20 mg oral tablet (20 sources) Serotonin Reuptake Inhibitor Start: 03-05-2020 End: 03-17-2021 take 1 tablet by mouth once daily Paroxetine Hcl 20 mg tablet Active 20 mg PO DAILY March 17, 2021 2:59pm predniSONE 20 mg oral tablet (20 sources) Start: 02-09-2023 take 2 tablets by mouth once daily Prednisone 20 mg tablet Active 40 mg PO DAILY February 09, 2023 1:00am Start: 02-09-2023 take 40 mg by mouth once daily Prednisone Active 40 MG PO DAILY February 09, 2023 12:00am Start: 11-12-2020 End: 08-05-2021 take 2 tablets by mouth once daily Prednisone 20 mg tablet Discontinued 40 mg PO DAILY May 26, 2021 9:12pm August 05, 2021 4:04pm Start: 11-12-2020 End: 08-05-2021 take 40 mg by mouth once daily Prednisone Discontinued 40 MG PO DAILY May 26, 2021 8:12pm August 05, 2021 3:04pm Semaglutide (4 sources) Start: 04-19-2022 Semaglutide Ac tive 0.25 MG SC EVERY WEEK April 19, 2022 1:00am Start: 04-19-2022 Semaglutide Ac tive 0.25 MG SC EVERY WEEK April 19, 2022 12:00am Semaglutide 2 mg/dose (8 mg/3 mL) pen injector (2 sources) Start: 04-19-2022 Semaglutide 2 mg/dose (8 mg/3 mL) pen injector Active 0.25 mg SC EVERY WEEK April 19, 2022 1:00am traZODone hydrochloride 100 mg oral tablet (20 sources) Serotonin Reuptake Inhibitor Start: 12-05-2019 take 1 tablet by mouth once daily traZODone HCl - 100 MG Oral Tablet TAKE 1 TABLET DAILY DIRECTED. Quantity: 30 Refills: 6 Joanie Franco MD Start : 05-Dec-2019 Active Start: 10-11-2016 End: 04-19-2023 take 200 mg by mouth at bedtime Trazodone Active 200 M G PO AT BEDTIME 360 180 April 19, 2023 2:44pm Start: 08-11-2014 End: 12-06-2023 take 2 tablets by mouth at bedtime Trazodone 100 mg tablet Active 200 mg PO AT BEDTIME 360 180 April 19, 2023 3:44pm valACYclovir 1000 mg oral tablet (20 sources) Herpesvirus Nucleoside Analog DNA Polymerase Inhibitor, Herpes Simplex Virus Nucleoside Analog DNA Polymerase Inhibitor, Herpes Zoster Virus Nucleoside Analog DNA Polymerase Inhibitor Start: 07-29-2022 End: 08-13-2023 take 2 tablets by mouth twice daily valACYclovir (Valtrex) 1 gram tablet Indications: Recurrent cold sores Take 2 tablets (2,000 mg) by mouth 2 times a day. 20 tablet 08/13/2023 Active Start: 03-22-2022 End: 03-29-2022 Valacyclovir 1 gram tablet Discontinued 1000 mg PO THREE TIMES A DAY 13 10March 22, 2022 1:00am March 28, 2022 1:00am March 29, 2022 1:03am Start: 03-22-2022 End: 03-29-2022 take 1000 mg by mouth three times daily Valacyclovir Discontinued 1000 MG PO THREE TIMES A DAY 13 10March 22, 2022 12:00am March 29, 2022 12:03am Start: 05-15-2019 End: 01-23-2024 Valacyclovir 1 gram tablet A ctive 2000 mg PO TWICE A DAY as needed for cold sores 4 January 23, 2024 8:07pm Start: 05-15-2019 take 2000 mg by mout h twice daily Valacyclovir Active 2000 MG PO TWICE A DAY 4 May 15, 2019 12:00am Start: 08-31-2015 End: 07-27-2022 take 2 tablets by mouth twice daily valACYclovir HCl - 1 GM Oral Tablet 2 tabs bid x 1 day Quantity: 1 Refills: 0 Ordered: 02-May-2022 Joanie Franco MD Start : 31-Aug-2015 Active 24 hr venlafaxine 75 mg extended release oral capsule (20 sources) Serotonin and Norepinephrine Reuptake Inhibitor Start: 12-08-2023 take 3 capsules by mouth once daily venlafaxine XR (Effexor-XR) 75 mg 24 hr capsule Indications: Depression, unspecified depression type , Anxiety disorder, unspecified type Take 3 capsules (225 mg) by mouth once daily. 270 capsule 1 12/08/2023 Active Start: 10-10-2022 End: 12-06-2023 take 3 capsules by mouth once daily venlafaxine XR (Effexor-XR) 75 mg 24 hr capsule Indications: Depression, unspecified depression type , Anxiety disorder, unspecified type Take 3 capsules (225 mg) by mouth once daily. 270 capsule 1 08/13/2023 12/06/2023 Discontinued (Reorder) Start: 07-29-2022 take 3 capsules by m outh once daily venlafaxine XR (Effexor-XR) 75 mg 24 hr capsule Indications: Depression, unspecified depression type , Anxiety disorder, unspecified type Take 3 capsules (225 mg) by mouth once daily. 90 capsule 0 07/29/2022 Active Start: 07-07-2022 End: 07-27-2022 take 3 capsules by mouth once daily venlafaxine XR (Effexor-XR) 75 mg 24 hr capsule Indications: Depression, unspecified depression type , Anxiety disorder, unspecified type Take 3 capsules (225 mg) by mouth once daily. 90 capsule 0 07/07/2022 07/27/2022 Discontinued (Reorder) Start: 10-11-2016 End: 10-20-2022 take 1 tablet by mouth three times daily Venlafaxine 75 mg tablet Discontinued 75 mg PO THREE TIMES A DAY 30 10 October 10, 2022 2:44pm October 19, 2022 12:00am October 20, 2022 12:04am Start: 08-11-2014 take 3 capsules by m outh once daily Venlafaxine HCl ER 75 MG Oral Capsule Extended Release 24 Hour TAKE 3 CAPSULES DAILY Quantity: 270 Refills: 0 Ordered: 20-Oct-2021 Joanie Franco MD Start : 11-Aug-2014 Active Viloxazine (2 sources) Start: 03-07-2024 Viloxazine (Qe lbree) 200 mg capsule,extended release 24hr Active 400 mg PO daily 180 90 March 07, 2024 1:00am start with 200 mg for week 1, week 2,400 mg then continue Completed/Discontinued Medications Medication Drug Class(es) Dates Sig (Normalized) Sig (Original) acetaminophen 300 mg / HYDROcodone bitartrate 5 mg oral tablet (10 sources) Opioid Agonist Start: 10-11-2016 End: 10-16-2016 Hydrocodone-Acetami nophen (Vicodin 5-300 Mg Tablet) 1 EACH tablet Discontinued 1 - 2 {tbl} PO EVERY 4 HOURS NEEDED as needed for Pain October 11, 2016 12:00am October 16, 2016 1:03pm acetaminophen 325 mg / oxyCODONE hydrochloride 5 mg oral tablet (20 sources) Opioid Agonist Start: 10-16-2016 End: 04-19-2017 Oxycodone-Acetamino phen 1 TABLET tablet Discontinued 1 - 2 {tbl} PO 4 TIMES DAILY NEEDED as needed for Pain 40 November 01, 2016 3:25pm April 19, 2017 10:25am Start: 10-16-2016 End: 04-19-2017 take 1 tablet by mouth four times daily as needed Oxycodone-Acetaminophen Discontinued 1 - 2 TABLET PO 4 TIMES DAILY NEEDED November 01, 2016 2:25pm April 19, 2017 9:25am amitriptyline hydrochloride 50 mg oral tablet (2 sources) Tricyclic Antidepressant Start: 09-05-2019 take 0.5-1 tablets by mouth at bedtime Amitriptyline HCl - 50 MG Oral Tablet TAKE 1/2-1 TABLET AT BEDTIME. Quantity: 90 Refills: 1 Joanie Franco MD Start : 05-Sep-2019 Active azithromycin 250 mg oral tablet (20 sources) Macrolide Antimicrobial Start: 04-17-2024 End: 04-22-2024 take 2 tablets by mouth once daily, then take 1 tablet by mouth once daily at mealtime Azithromycin 250 mg tablet Discontinued 250 mg PO daily 6 April 17, 2024 1:00am April 21, 2024 1:00am April 22, 2024 1:11am 2 po qd for 1 day then 1 po qd for 4 days with food or after eating Start: 04-09-2024 End: 04-14-2024 take 2 tablets by mouth once daily, then take 1 tablet by mouth once daily at mealtime Azithromycin 250 mg tablet Discontinued 250 mg PO daily 6 April 09, 2024 1:00am April 13, 2024 1:00am April 14, 2024 1:10am 2 po qd for 1 day then 1 po qd for 4 days with food or after eating Start: 08-27-2023 End: 09-01-2023 take 2 tablets by mouth once daily, then take 1 tablet by mouth once daily at mealtime Azithromycin 250 mg tablet Discontinued 250 mg PO daily 6 August 27, 2023 12:00am August 31, 2023 12:00am September 01, 2023 12:15am 2 po qd for 1 day then 1 po qd for 4 days with food or after eating Start: 12-15-2022 End: 12-20-2022 take 2 tablets by mouth once daily, then take 1 tablet by mouth once daily at mealtime Azithromycin 250 mg tablet Discontinued 250 mg PO daily 08 28December 15, 2022 2:52pm December 19, 2022 12:00December 20, 2022 12:04am 2 po qd for 1 day then 1 po qd for 4 days with food or after eating Start: 02-08-2022 End: 02-13-2022 take 2 tablets by mouth once daily, then take 1 tablet by mouth once daily at mealtime Azithromycin 250 mg tablet Discontinued 250 mg PO daily 6 February 08, 2022 1:00am February 12, 2022 1:00am February 13, 2022 1:03am 2 po qd for 1 day then 1 po qd for 4 days with food or after eating Start: 08-26-2020 End: 03-24-2021 take 2-5 tablets by mouth once daily Azithromycin 250 mg tablet Discontinued 0 PO .COMPLEX August 26, 2020 12:00am March 24, 2021 7:01pm take 500 mg today (day 1), then 250 mg for 4 days (days 2-5) PO Start: 08-26-2020 End: 03-24-2021 Azithromycin Discontinued 0 PO .COMPLEX August 25, 2020 11:00pm March 24, 2021 6:01pm take 500 mg today (day 1), then 250 mg for 4 days (days 2-5) PO Start: 06-25-2020 End: 06-30-2020 take 2 tablets by mouth once daily, then take 1 tablet by mouth once daily at mealtime Azithromycin 250 mg tablet Discontinued 250 mg PO daily 6 June 25, 2020 12:00am June 29, 2020 12:00am June 30, 2020 12:04am 2 po qd for 1 day then 1 po qd for 4 days with food or after eating Start: 04-24-2019 End: 04-29-2019 take 2 tablets by mouth once daily, then take 1 tablet by mouth once daily at mealtime Azithromycin 250 mg tablet Discontinued 250 mg PO daily 08 28April 24, 2019 1:00am April 28, 2019 1:00am April 29, 2019 1:08am 2 po qd for 1 day then 1 po qd for 4 days with food or after eating cephalexin 500 mg oral capsule (14 sources) Cephalosporin Antibacterial Start: 08-18-2022 End: 08-28-2022 take 1 capsule by mouth three times daily Cephalexin 500 mg capsule Discontinued 500 mg PO THREE TIMES A DAY 22 01August 18, 2022 8:01pm August 27, 2022 12:00am August 28, 2022 12:04am Start: 05-06-2019 End: 05-13-2019 take 1 capsule by mouth three times daily Cephalexin 500 mg capsule Discontinued 500 mg PO THREE TIMES A DAY 13 10May 06, 2019 1:00am May 12, 2019 1:00am May 13, 2019 1:07am ciprofloxacin 500 mg oral tablet (19 sources) Quinolone Antimicrobial Start: 10-10-2023 End: 01-23-2024 take 1 tablet by mouth twice daily Ciprofloxacin Hcl (Cipro) 500 mg tablet Discontinued 500 mg PO TWICE A DAY October 10, 2023 12:00am January 23, 2024 8:06pm Start: 03-28-2022 End: 10-05-2022 take 1 tablet by mouth twice daily Ciprofloxacin Hcl 500 mg tablet Discontinued 500 mg PO TWICE A DAY March 28, 2022 1:00am October 05, 2022 7:04pm Start: 12-14-2017 End: 05-02-2018 take 1 tablet by mouth twice daily Ciprofloxacin Hcl (Cipro) 500 mg tablet Discontinued 500 mg PO TWICE A DAY December 14, 2017 12:00am May 02, 2018 7:33pm diazePAM 5 mg oral tablet (20 sources) Benzodiazepine Start: 10-16-2016 End: 12-14-2017 take 1 tablet by mouth four times daily as needed for muscle spasms Diazepam 5 MG tablet Discontinued 5 mg PO 4 TIMES DAILY NEEDED as needed for Spasms November 01, 2016 3:25pm December 14, 2017 5:10pm docusate sodium 100 mg oral capsule (10 sources) Start: 10-16-2016 End: 04-19-2017 take 1 capsule by mouth twice daily Docusate Sodium 100 MG capsule Discontinued 100 mg PO TWICE A DAY October 16, 2016 12:00am April 19, 2017 10:25am doxycycline hyclate 100 mg oral capsule (20 sources) Tetracycline-class Drug Start: 11-03-2021 End: 12-16-2021 take 1 capsule by mouth twice daily Doxycycline Hyclate 100 mg capsule Discontinued 100 mg PO TWICE A DAY November 03, 2021 12:00am December 16, 2021 4:58pm Start: 05-24-2021 End: 08-05-2021 take 1 capsule by mouth twice daily Doxycycline Monohydrate 100 MG capsule Discontinued 100 mg PO TWICE A DAY May 24, 2021 1:00am August 05, 2021 4:04pm Start: 10-16-2016 End: 04-19-2017 take 1 capsule by mouth twice daily Doxycycline Monohydrate 100 MG capsule Discontinued 100 mg PO TWICE A DAY October 16, 2016 12:00am April 19, 2017 10:25am 1.5 ml fremanezumab-vfrm 150 mg/ml auto-injector (14 sources) Ajovy 225 MG/1.5 ML Subcutaneous Solution Auto-injector 1 injection monthly Quantity: 0 Refills: 0 Ordered: 06-Jul-2020 DO Active lemborexant 10 mg oral table t (20 sources) Start: 06-25-2020 End: 03-07-2024 take 1 tablet by mouth at bedtime Lemborexant 10 mg tablet Discontinued 10 mg PO AT BEDTIME June 25, 2020 12:00am March 07, 2024 9:26pm Start: 05-13-2020 End: 01-23-2024 take 1 tablet by mouth at bedtime Lemborexant (Dayvigo) 5 mg tablet Discontinued 5 mg PO AT BEDTIME May 13, 2020 1:00am January 23, 2024 8:07pm metroNIDAZOLE 250 mg oral tablet (20 sources) Nitroimidazole Antimicrobial Start: 08-05-2021 End: 08-15-2021 take 1 tablet by mouth three times daily as needed for diarrhea Metronidazole 250 mg tablet Discontinued 250 mg PO THREE TIMES A DAY as needed for diarrhea 22 01August 05, 2021 4:05pm August 14, 2021 12:00am August 15, 2021 12:02am Start: 06-01-2021 End: 06-11-2021 take 1 tablet by mouth three times daily as needed for diarrhea Metronidazole 250 mg tablet Discontinued 250 mg PO THREE TIMES A DAY as needed for diarrhea 22 01June 01, 2021 1:00am June 10, 2021 12:00am June 11, 2021 12:04am Drug Treatment Unknown - unknown (4 sources) No information available. oseltamivir 75 mg oral capsule (7 sources) Neuraminidase Inhibitor Start: 03-13-20 End: 03-18-20 take 1 capsule by mouth twice daily Oseltamivir 75 mg capsule Discontinued 75 mg PO TWICE A DAY 10 5 Kevin 19th, 2022 1:00am March 17, 2022 1:00am March 18, 2022 1:11am polymyxin b [id number] unt/ml / trimethoprim 1 mg/ml ophthalmic solution (10 sources) Dihydrofolate Reductase Inhibitor Antibacterial, Polymyxin-class Antibacterial Start: 02-26-20 End: 03-02-20 Polymyxin B Sulf-Trimethoprim (Polytrim) 10,000 unit- 1 mg/mL drops Discontinued 2 NMA OPHTHALMIC Q4H 10 February 25, 2019 1:00am March 01, 2019 1:00am March 02, 2019 1:09am while awake; do not exceed 6 doses in 24 hours prednisoLONE acetate 10 mg/ml ophthalmic suspension (10 sources) Corticosteroid Start: 02-25-20 End: 05-21-19 Prednisolone Acetate 1 % drops,suspension Discontinued 2 NMA OPHTHALMIC THREE TIMES A DAY February 24, 2019 1:00am May 21, 2020 8:38pm promethazine hydrochloride 12.5 mg oral tablet (20 sources) Phenothiazine Start: 03-24-20 End: 08-06-19 take 1 tablet by mouth three times daily as needed for nausea and vomiting Promethazine 12.5 mg tablet Discontinued 12.5 mg PO THREE TIMES A DAY as needed for nausea and vomiting May 26, 2021 9:12pm August 05, 2021 4:05pm Start: 10-16-2016 End: 04-19-2017 take 1 tablet by mouth four times daily as needed for nausea Promethazine 25 MG tablet Discontinued 25 mg PO 4 TIMES DAILY NEEDED as needed for NAUSEA/VOMITING October 16, 2016 1:02pm April 19, 2017 10:26am sulfamethoxazole 800 mg / trimethoprim 160 mg oral tablet (20 sources) Dihydrofolate Reductase Inhibitor Antibacterial, Sulfonamide Antimicrobial Start: 10-05-2022 End: 10-15-2022 Sulfamethoxazole-Trimethopri m 800-160 mg tablet Discontinued 1 {tbl} PO TWICE A DAY 12 01October 05, 2022 12:00am October 14, 2022 12:00am October 15, 2022 12:03am Start: 10-05-2022 End: 10-15-2022 take 1 tablet by mouth twice daily Sulfamethoxazole-Trimethoprim Discontinu ed 1 TABLET PO TWICE A DAY 12 01October 043 11:00pm October 14, 2022 11:03pm Start: 10-24-2021 End: 11-03-2021 Sulfamethoxazole-Trimethopri m 800-160 mg tablet Discontinued 1 {tbl} PO TWICE A DAY 20 October 24, 2021 12:00am November 02, 2021 12:00am November 03, 2021 12:03am Start: 10-24-2021 End: 11-03-2021 take 1 tablet by mouth twice daily Sulfamethoxazole-Trimethoprim Discontinu ed 1 TABLET PO TWICE A DAY 20 October 23, 2021 11:00pm November 02, 2021 11:03pm Start: 04-28-2021 End: 05-26-2021 Sulfamethoxazole-Trimethopri m 800-160 mg tablet Discontinued 1 {tbl} PO TWICE A DAY 14 April 28, 2021 1:00am May 26, 2021 9:12pm Start: 04-28-2021 End: 05-26-2021 take 1 tablet by mouth twice daily Sulfamethoxazole-Trimethoprim Discontinu ed 1 TABLET PO TWICE A DAY 14 April 28, 2021 12:00am May 26, 2021 8:12pm Start: 03-02-2020 End: 03-12-2020 Sulfamethoxazole-Trimethopri m 800-160 mg tablet Discontinued 1 {tbl} PO TWICE A DAY 20 March 02, 2020 1:00am March 11, 2020 1:00am March 12, 2020 1:03am Start: 03-02-2020 End: 03-12-2020 take 1 tablet by mouth twice daily Sulfamethoxazole-Trimethoprim Discontinu ed 1 TABLET PO TWICE A DAY 20 March 02, 2020 12:00am March 12, 2020 12:03am Start: 11-14-2019 End: 11-21-2019 Sulfamethoxazole-Trimethopri m 800-160 mg tablet Discontinued 1 {tbl} PO TWICE A DAY 14 November 14, 2019 12:00am November 20, 2019 12:00am November 21, 2019 12:02am Start: 11-14-2019 End: 11-21-2019 take 1 tablet by mouth twice daily Sulfamethoxazole-Trimethoprim Discontinu ed 1 TABLET PO TWICE A DAY 14 November 13, 2019 11:00pm November 20, 2019 11:02pm Start: 07-02-2019 End: 07-23-2019 Sulfamethoxazole-Trimethopri m 800-160 mg tablet Discontinued 1 {tbl} PO TWICE A DAY 42 July 02, 2019 6:29pm July 22, 2019 12:00am July 23, 2019 12:01am Start: 07-02-2019 End: 07-23-2019 take 1 tablet by mouth twice daily Sulfamethoxazole-Trimethoprim Discontinu ed 1 TABLET PO TWICE A DAY 42 July 02, 2019 5:29pm July 22, 2019 11:01pm Start: 05-17-2019 End: 06-07-2019 Sulfamethoxazole-Trimethopri m 800-160 mg tablet Discontinued 1 {tbl} PO TWICE A DAY 42 May 17, 2019 1:00am June 06, 2019 12:00am June 07, 2019 12:09am Start: 05-17-2019 End: 06-07-2019 take 1 tablet by mouth twice daily Sulfamethoxazole-Trimethoprim Discontinu ed 1 TABLET PO TWICE A DAY 42 May 17, 2019 12:00am June 06, 2019 11:09pm terbinafine 250 mg oral tablet (20 sources) Allylamine Antifungal Start: 11-25-2021 End: 02-12-2023 take 1 tablet by mouth once daily terbinafine (LamISIL) 250 mg tablet Take 1 tablet (250 mg) by mouth once daily. 0 11/25/2021 02/12/2023 Discontinued (Therapy completed) Start: 02-22-2021 End: 08-05-2021 take 1 tablet by mouth once daily Terbinafine Hcl 250 mg tablet Discontinued 250 mg PO DAILY February 22, 2021 1:00am August 05, 2021 4:04pm traMADol hydrochloride 50 mg oral tablet (12 sources) Opioid Agonist Start: 11-12-2020 End: 11-08-2023 Tramadol 50 mg tablet Discontinued 50 mg PO EVERY 6-8 HOURS 20 10November 01, 2023 12:00am November 07, 2023 12:00am November 08, 2023 12:04am triamcinolone acetonide 40 mg/ml injectable suspension (2 sources) Corticosteroid Start: 05-21-2020 End: 05-21-2020 inject 60 mg by intramuscular injection once triamcinolone acetonide 40 mg/mL suspension for injection Discontinued 60 MG IM ONCE 1.5 May 21, 2020 3:42pm May 21, 2020 8:36pm Start: 11-26-2019 End: 11-26-2019 inject 60 mg by intramuscular injection once triamcinolone acetonide 40 mg/mL suspension for injection Discontinued 60 MG IM ONCE 1.5 November 26, 2019 7:28pm November 26, 2019 7:44pm Problems Active Problems Problem Classification Problem Date Documented Date Episodic/Chronic Abdominal pain (10 sources) Left lower quadrant pain; Translations: [Left lower quadrant pain] 03-02-2020 Episodic Anxiety disorders (20 sources) Anxiety disorder; Translations: [Mixed anxiety and depressive disorder] Onset: 06-22-2022 07-27-2022 Chronic Anxiety disorders (20 sources) Feeling irritable; Translations: [Irritability] Episodic Attention-deficit conduct and disruptive behavior disorders (20 sources) Attention deficit hyperactivity disorder, predominantly inattentive type; Translations: [Attention deficit disorder without mention of hyperactivity] Onset: 06-22-2022 12-16-2021 Chronic Attention-deficit, conduct, and disruptive behavior disorders (2 sources) Attention-deficit hyperactivity disorder, predominantly inattentive type; Translations: [Attention-deficit hyperactivity disorder, predominantly inattentive type] Onset: 05-14-2023 Chronic Chronic obstructive pulmonary disease and bronchiectasis (20 sources) Bronchitis; Translations: [Bronchitis, not specified as acute or chronic] 12-06-2018 Episodic Diseases of white blood cells (6 sources) Leukocytosis; Translations: [Elevated white blood cell count, unspecified] 04-14-2022 Chronic Disorders of lipid metabolism (20 sources) Hyperlipidemia; Translations: [Other and unspecified hyperlipidemia] Onset: 06-22-2022 02-01-2019 Chronic E Codes: Natural/environment (9 sources) Infected insect bite; Translations: [Bitten or stung by nonvenomous insect and other nonvenomous arthropods, initial encounter] 10-31-2021 Episodic Fever of unknown origin (10 sources) Fever; Translations: [Fever, unspecified] 12-14-2017 Episodic Malaise and fatigue (10 sources) Fatigue; Translations: [Other fatigue] 08-18-2021 Episodic Menopausal disorders (11 sources) Menopausal flushing; Translations: [Menopausal and female climacteric states] 11-26-2019 Chronic Mood disorders (20 sources) Depressive disorder; Translations: [Depressive disorder, not elsewhere classified] Onset: 06-22-2022 12-16-2021 Chronic Comment on above: Added by Problem Lis greta Migration; 2012-05-21; Moved to Suppressed Feb 15 2013 4:11PM; Mood disorders (2 sources) Mood disorders; Translations: [Depression, unspecified] Onset: 06-22-2022 Mycoses (20 sources) Candidiasis of mouth; Translations: [Candidal stomatitis] Onset: 06-22-2022 05-02-2018 Episodic Nutritional deficiencies (18 sources) Vitamin D deficiency; Translations: [Vitamin D deficiency, unspecified] 05-05-2020 Chronic Other circulatory disease (20 sources) Elevated blood-pressure reading without diagnosis of hypertension; Translations: [Elevated blood pressure reading without diagnosis of hypertension] Episodic Other circulatory disease (20 sources) H/O: hypertension; Translations: [Personal history of other diseases of circulatory system] Episodic Other connective tissue disease (20 sources) Muscle pain; Translations: [Myalgia and myositis, unspecified] Episodic Other injuries and conditions due to external causes (10 sources) Otitic barotrauma; Translations: [Otitic barotrauma, initial encounter] 12-06-2018 Episodic Other lower respiratory disease (20 sources) H/O: asthma; Translations: [Personal history of other diseases of respiratory system] Episodic Other lower respiratory disease (20 sources) H/O: respiratory disease; Translations: [Personal history of other diseases of respiratory system] Episodic Other lower respiratory disease (20 sources) H/O: bronchitis; Translations: [Personal history of other diseases of respiratory system] Episodic Other lower respiratory disease (7 sources) Dyspnea; Translations: [Dyspnea, unspecified] 04-15-2022 Episodic Other nutritional; endocrine; and metabolic disorders (2 sources) Insulin resistance; Translations: [Insulin resistance] 06-05-2024 Chronic Other nutritional; endocrine; and metabolic disorders (2 sources) Weight loss; Translations: [Abnormal weight loss] 11-02-2022 Episodic Other nutritional; endocrine; and metabolic disorders (2 sources) Weight decreased; Translations: [Abnormal weight loss] 11-02-2022 Episodic Other screening for suspected conditions (not mental disorders or infectious disease) (20 sources) Patient encounter status; Translations: [Screening for lipoid disorders] Onset: 08-13-2023 04-19-2017 Episodic Other screening for suspected conditions (not mental disorders or infectious disease) (4 sources) No current problems or disability 10-25-2016 Other skin disorders (10 sources) Infection of sebaceous cyst; Translations: [Sebaceous cyst] 05-02-2018 Episodic Other skin disorders (10 sources) Alopecia; Translations: [Nonscarring hair loss, unspecified] 05-05-2020 Episodic Other skin disorders (10 sources) Lesion of skin of face; Translations: [Disorder of the skin and subcutaneous tissue, unspecified] 07-23-2020 Episodic Other skin disorders (2 sources) Mass of skin; Translations: [Localized swelling, mass and lump, unspecified lower limb] 08-14-2023 Episodic Other skin disorders (2 sources) Sebaceous cyst of skin; Translations: [Sebaceous cyst] 08-14-2023 Episodic Other upper respiratory disease (10 sources) Seasonal allergy; Translations: [Other seasonal allergic rhinitis] 12-03-2019 Chronic Other upper respiratory disease (10 sources) Lesion of nose; Translations: [Other specified disorders of nose and nasal sinuses] 04-27-2021 Episodic Other upper respiratory infections (20 sources) Maxillary sinusitis; Translations: [Chronic maxillary sinusitis] 12-06-2018 Chronic Residual codes; unclassified (20 sources) Insomnia; Translations: [Insomnia, unspecified] Onset: 06-22-2022 08-18-2021 Episodic Residual codes; unclassified (7 sources) Confusional state; Translations: [Disorientation, unspecified] 04-15-2022 Episodic Screening and history of mental health and substance abuse codes (20 sources) H/O: psychiatric disorder; Translations: [Personal history of other mental disorders] Episodic Thyroid disorders (11 sources) Hypothyroidism; Translations: [Hypothyroidism, unspecified] Onset: 10-31-2023 05-05-2020 Chronic Unclassified (1 source) Insulin resistance, unspecified; Translations: [Insulin resistance, unspecified] Onset: 08-21-2024 Viral infection (20 sources) Herpes simplex; Translations: [Herpes simplex without mention of complication] Onset: 06-22-2022 12-03-2019 Episodic Past or Other Problems Problem Classification Problem Date Documented Date Episodic/Chronic Administrative/social admission (8 sources) Drug therapy finding; Translations: [Encounters for other specified administrative purpose] Onset: 05-14-2023 05-14-2023 Episodic Other aftercare (2 sources) Other extermination supervisor (current) drug therapy; Translations: [Other residential (current) drug therapy] Onset: 05-14-2023 Episodic Other skin disorders (20 sources) Skin [...] skin eruption] Onset: 06-22-2022 06-22-2022 Episodic Other upper respiratory infections (20 sources) Acute sinusitis; Translations: [Sore throat symptom] Onset: 06-22-2022 06-22-2022 Episodic Residual codes; unclassified (20 sources) Memory impairment; Translations: [Memory loss] Onset: 06-22-2022 06-22-2022 Episodic Residual codes; unclassified (2 sources) Insomnia, unspecified; Translations: [Insomnia, unspecified] Onset: 06-22-2022 Episodic Skin and subcutaneous tissue infections (20 sources) Impetigo; Translations: [Impetigo] Onset: 06-22-2022 06-22-2022 Episodic Thyroid disorders (20 sources) Disorder of thyroid gland; Translations: [Unspecified disorder of thyroid] Onset: 06-22-2022 06-22-2022 Episodic Unclassified (18 sources) Patient encounter status; Translations: [Screening cholesterol level] Unclassified (10 sources) vit def 11-28-2021 Unclassified (9 sources) ABLATION UTERINE 201010-20-2021 Unclassified (9 sources) history of cystectomy 10-20-2021 Unclassified (4 sources) Onset: 02-12-2023 Resolved: 12-06-2023 02-12-2023 NEGATED: Highlighted row has not occurred!Residual codes; unclassified (20 sources) Disease Episodic Results Test Name Value Interpretation Reference Range Facility Estrogen, Total, Serumon ESTROGENS,TOTAL 181 pg/mL Normal . [facility] Comment on above: Order Comment: N Result Comment: Prep ubertal < 40 Female Cycle: 1-10 Days 16 - 328 11-20 Days 34 - 501 21-30 Days 48 - 350 Post-Menopausal 40 - 244 Performed at: [facility] [id number] Utility Specialist: Amie Wilson MD, Phone: [phone] Performed By: #### L 100.0100, L500.4050, L501.27026, L501.9520, L506.0400, L3100.5850 #### [facility] [address] [place], [address] PROGESTERONE 4317on 08-17-19 PROGESTERONE 6.6 ng/mL Normal . [facility] Comment on above: Order Comment: N Result Comment: Foll icular phase 0.1 - 0.9 Luteal phase 1.8 - 23.9 Ovulation phase 0.1 - 12.0 First trimester 11.0 - 44.3 Second trimester 25.4 - 83.3 Third trimester 58.7 - 214.0 Postmenopausal 0.0 - 0.1 Performed at: [facility] [id number] Utility Specialist: Michael Arevalo PhD, Phone: [phone] Performed By: #### L 100.0100, L500.4050, L501.17612, L501.9520, L506.0400, L3100.5850 #### [facility] [address] [place], [address] CBC W/Diff, Automatedon - Absolute Lymph 4.01 X10 3/uL Normal 0.83-4.51 [facility] Comment on above: Performed By: #### L 100.0100, L500.4050, L501.56153, L501.9520, L506.0400, L3100.5850 #### [facility] [address] [place], [address] Absolute Neut 8.1 X10 3/uL High 2.0-7.7 [facility] Comment on above: Performed By: #### L 100.0100, L500.4050, L501.59973, L501.9520, L506.0400, L3100.5850 #### [facility] [address] [place], [address] Basophils/100 WBC (Bld) 0.3 % Normal 0-1 [facility] Comment on above: Performed By: #### L 100.0100, L500.4050, L501.49625, L501.9520, L506.0400, L3100.5850 #### [facility] [address] [place], [address] Eosinophils/100 WBC (Bld) 0.2 % Normal 0-5 [facility] Comment on above: Performed By: #### L 100.0100, L500.4050, L501.83873, L501.9520, L506.0400, L3100.5850 #### [facility] [address] [place], [address] Erythrocyte distribution width (RBC) [Ratio] 12.9 % Normal 11.6-14.6 [facility] Comment on above: Performed By: #### L 100.0100, L500.4050, L501.18895, L501.9520, L506.0400, L3100.5850 #### [facility] [address] [place], [address] Hematocrit (Bld) [Volume fraction] 47.3 % High 37-47 [facility] Comment on above: Performed By: #### L 100.0100, L500.4050, L501.75209, L501.9520, L506.0400, L3100.5850 #### [facility] [address] [place], [address] Hemoglobin (Bld) [Mass/Vol] 15.6 g/dL High 12.0-15.0 [facility] Comment on above: Performed By: #### L 100.0100, L500.4050, L501.13744, L501.9520, L506.0400, L3100.5850 #### [facility] [address] [place], [address] IG% 0.500 Normal 0.0-0.9 [facility] Comment on above: Result Comment: IG% - Immature Granulocytes (promyelocytes, myelocytes and metamyelocytes) > 1% indicates that a LEFT SHIFT is Present. Performed By: #### L 100.0100, L500.4050, L501.47871, L501.9520, L506.0400, L3100.5850 #### [facility] [address] [place], [address] Lymphocytes/100 WBC (Bld) 30.7 % Normal 19-41 [facility] Comment on above: Performed By: #### L 100.0100, L500.4050, L501.60360, L501.9520, L506.0400, L3100.5850 #### [facility] [address] [place], [address] MCH (RBC) [Entitic mass] 29.9 pg Normal 27.0-32.0 [facility] Comment on above: Performed By: #### L 100.0100, L500.4050, L501.69755, L501.9520, L506.0400, L3100.5850 #### [facility] [address] [place], [address] MCHC (RBC) [Mass/Vol] 33.0 g/dL Normal 32-36 [facility] Comment on above: Performed By: #### L 100.0100, L500.4050, L501.76989, L501.9520, L506.0400, L3100.5850 #### [facility] [address] [place], [address] MCV (RBC) [Entitic vol] 90.6 fL Normal 81-99 [facility] Comment on above: Performed By: #### L 100.0100, L500.4050, L501.19910, L501.9520, L506.0400, L3100.5850 #### [facility] [address] [place], [address] Monocytes/100 WBC (Bld) 6.4 % Normal 0-10 [facility] Comment on above: Performed By: #### L 100.0100, L500.4050, L501.94352, L501.9520, L506.0400, L3100.5850 #### [facility] [address] [place], [address] Neutrophils/100 WBC (Bld) 61.9 % Normal 47-70 [facility] Comment on above: Performed By: #### L 100.0100, L500.4050, L501.67603, L501.9520, L506.0400, L3100.5850 #### [facility] [address] [place], [address] Nucleated RBC (Bld) [#/Vol] 0 10*3/uL Normal 0-5 [facility] Comment on above: Performed By: #### L 100.0100, L500.4050, L501.25140, L501.9520, L506.0400, L3100.5850 #### [facility] [address] [place], [address] Platelet mean volume (Bld) [Entitic vol] 9.7 fL Normal 6.2-12.0 [facility] Comment on above: Performed By: #### L 100.0100, L500.4050, L501.08595, L501.9520, L506.0400, L3100.5850 #### [facility] [address] [place], [address] Platelets (Bld) [#/Vol] 398 10*3/uL Normal 150-450 [facility] Comment on above: Performed By: #### L 100.0100, L500.4050, L501.33895, L501.9520, L506.0400, L3100.5850 #### [facility] [address] [place], [address] RBC (Bld) [#/Vol] 5.22 10*6/uL Normal 4.2-5.4 [facility] Comment on above: Performed By: #### L 100.0100, L500.4050, L501.82293, L501.9520, L506.0400, L3100.5850 #### [facility] [address] [place], [address] RDW SD 42.8 fl Normal 35.1-43.9 [facility] Comment on above: Performed By: #### L 100.0100, L500.4050, L501.77253, L501.9520, L506.0400, L3100.5850 #### [facility] [address] [place], [address] WBC (Bld) [#/Vol] 13.1 10*3/uL High 4.4-11.0 [facility] Comment on above: Performed By: #### L 100.0100, L500.4050, L501.10017, L501.9520, L506.0400, L3100.5850 #### [facility] [address] [place], [address] FSH and LHon 08-15-2024 FSH 2.3 mIU/mL Normal [facility] Comment on above: Result Comment: FEMA LE: Follicular: 1.4 - 18.1 mIU/mL Midcycle: 3.4 - 33.4 mIU/mL Luteal: 1.5 - 9.1 mIU/mL Post Menopause: 23.0 - 116.3 mIU/mL MALE: 1.4 - 18.1 mIU/mL Performed By: #### L 100.0100, L500.4050, L501.13896, L501.9520, L506.0400, L3100.5850 #### [facility] [address] [place], [place], [id number] LH 1.4 mIU/mL Normal [facility] Comment on above: Result Comment: FEMA LE: Follicular: 1.9-12.5 mIU/mL Midcycle: 8.7-76.3 mIU/mL Luteal: 0.5-16.9 mIU/mL Post Menopause: 15.9-54.0 mIU/mL MALE: 20-70 Years: 1.5-9.3 mIU/mL >70 Years: 3.1-34.6 mIU/mL Performed By: #### L 100.0100, L500.4050, L501.07930, L501.9520, L506.0400, L3100.5850 #### [facility] [address] [place], [place], [id number] L509.3001on 08-15-2024 Testosterone [Mass/Vol] 27.60 ng/dL Normal 9-55 [facility] Comment on above: Performed By: #### L 100.0100, L500.4050, L501.31762, L501.9520, L506.0400, L3100.5850 #### [facility] [address] [place], [place], [address] Absolute lymphocyte countOrd ered By: Varsha Beth on 08-14-2024 Lymphocytes Auto (Unsp spec) [#/Vol] 4.01 10*3/uL 0.83-4.51 [facility] Absolute neutrophil countOrd ered By: Varsha Beth on 08-14-2024 Neutrophils (Bld) [#/Vol] 8.1 10*3/uL High 2.0-7.7 [facility] Automated lymphocyte count a s percentage of total leukocytesOrdered By: Varsha Beth on 08-14-2024 Lymphocytes/100 WBC Auto (Unsp spec) 30.7 % 19-41 [facility] Basophil percentageOrdered B y: Varsha Beth on 08-14-2024 Basophils/100 WBC (Bld) 0.3 % 0-1 [facility] Eosinophil percentageOrdered By: Varsha Beth on 08-14-2024 Eosinophils/100 WBC (Bld) 0.2 % 0-5 [facility] Erythrocyte distribution wid th ratioOrdered By: Varsha Beth on 08-14-2024 Erythrocyte distribution width (RBC) [Ratio] 12.9 % 11.6-14.6 [facility] Erythrocyte distribution wid th standard deviationOrdered By: Varsha Beth on 08-14-2024 Erythrocyte distribution width (RBC) [Ratio] 42.8 fl 35.1-43.9 [facility] Hematocrit Auto (Bld) [Volum e fraction]Ordered By: Varsha Beth on 08-14-2024 Hematocrit (Bld) [Volume fraction] 47.3 % High 37-47 [facility] Hemoglobin measurementOrdere d By: Varsha Beth on 08-14-2024 Hemoglobin (Bld) [Mass/Vol] 15.6 g/dL High 12.0-15.0 [facility] Immature granulocytes/100 WB C Auto (Bld)Ordered By: Varsha Beth on 08-14-2024 Immature granulocytes/100 WBC (Bld) 0.500 % 0.0-0.9 [facility] Comment on above: IG% - Immature Granu locytes (promyelocytes, myelocytes and metamyelocytes) > 1% indicates that a LEFT SHIFT is Present. Laboratory - Chemistry and C hemistry - challengeOrdered By: Varsha Beth on 08-14-2024 Testosterone [Mass/Vol] 27.60 ng/dL 9-55 [facility] MCV (mean corpuscular volume ) determinationOrdered By: Varsha Beth on 08-14-2024 MCV (RBC) [Entitic vol] 90.6 fL 81-99 [facility] Mean corpuscular hemoglobin (MCH) determinationOrdered By: Varsha Beth on 08-14-2024 MCH (RBC) [Entitic mass] 29.9 pg 27.0-32.0 [facility] Mean corpuscular hemoglobin concentration (MCHC) determinationOrdered By: Varsha Beth on 08-14-2024 MCHC (RBC) [Mass/Vol] 33.0 g/dL 32-36 [facility] Mean platelet volume determi nationOrdered By: Varsha Beth on 08-14-2024 Platelet mean volume (Bld) [Entitic vol] 9.7 fL 6.2-12.0 [facility] Monocyte percentageOrdered B y: Varsha Beth on 08-14-2024 Monocytes/100 WBC (Bld) 6.4 % 0-10 [facility] Neutrophil percentageOrdered By: Varsha Beth on 08-14-2024 Neutrophils/100 WBC (Bld) 61.9 % 47-70 [facility] Nucleated red blood cell per centageOrdered By: Varsha Beth on 08-14-2024 Nucleated RBC/100 WBC (Bld) [Ratio] 0 % 0-5 [facility] Platelet countOrdered By: Do ra Beth on 08-14-2024 Platelets (Bld) [#/Vol] 398 10*3/uL 150-450 [facility] RBC Auto (Bld) [#/Vol]Ordere d By: Varsha Beth on 08-14-2024 RBC (Bld) [#/Vol] 5.22 10*6/uL 4.2-5.4 [facility] Serum or plasma estrogen alize surement (mass/volume)Ordered By: Varsha Beth on 08-14-2024 Estrogen [Mass/Vol] 181 pg/mL . [facility] Comment on above: Prepubertal < 40 Fem john Cycle: 1-10 Days 16 - 328 11-20 Days 34 - 501 21-30 Days 48 - 350 Post-Menopausal 40 - 244Performed at: [address] [id number] Director: Amie Wilson MD, Phone: [phone] White blood cell (WBC) count Ordered By: Varsha Beth on 08-14-2024 WBC (Bld) [#/Vol] 13.1 10*3/uL High 4.4-11.0 [facility] Physician Progress No lasha 06-30-2024 [facility] Physician Progress Note BIN BILL :1980 Registration Date:06/30/2024 Assessment/Plan This Visit Diagnosis Breast cancer screening by mammogram Z12.31 Ordered: MAMM SCRN BI XENIA, 06/30/2024, Routine, SCREENING, Wheelchair, Isolation Precautions: NONE, Breast cancer screening by mammogram Colon cancer screening Z12.11 Ordered: AMB Cologuard, performed per outside lab [id number], 06/30/2024 14:09:00 EDT, Colon cancer screening History of hysterectomy for benign disease Z90.710 Ordered: AMB Postop followup during global period [id number], 06/30/2024 14:00:00 EDT, Postoperative state / History [...] How Much When Why Comments Stop Taking acetaminophen-hydrocod one (acetaminophen-HYDROco done 325 mg-5 mg oral tablet) 1 Tabs [...] effort Extremities: no edema Psychiatric: Mood: normal OPERATIONS PROJECT MANAGER: Vital signs reviewed External genitalia: normal, no lesions Urethra: normal meatus Vagina: cuff intact, sutures still present, white discharge, vault normal Cervix: absent Uterus: absent OPERATIONS PROJECT MANAGER Additional Details Menstrual History Menstrual StatusHysterectomy OPERATIONS PROJECT MANAGER Screening Date of Last Pap Smear12/06/2023 Last Pap Result, Pt StatedNegative Last Pap Result CommentNeg HPV Date of Last Mammogram, Pt StatedNever Contraception Contraception MethodSterilization for contraception Sterilization TypeHysterectomy OB History History (2,0,0,2) # 1 Baby 1 Outcome Date: 06/17/1998 Outcome or Result: Vaginal Gest Age: 40 weeks Outcome: Live Sex: Male Hospital: [facility] Dr [place]ullen # 2 Baby 1 Outcome Date: 12/06/2003 Outcome or Result: Vaginal Gest Age: 40 weeks Outcome: Live Sex: Male Hospital: [facility] Dr [place] Problem List/Past Medical History Ongoing Faint heart murmur History of hysterectomy for benign disease Menorrhagia Palpitations Historical Procedure/Surgical History Total laparoscopic hysterectomy, bilateral salpingectomy - Fibroid uterus, Abnormal uterine bleedin05/19/24: NAS LAM FACOG, BENJI pilonidal cyst: 2016 Hysteroscopy, D&C, Ablation: 2008 Cologard - Never Colonoscopy - Never Medications atomoxetine(Strattera 80 mg oral capsule), 80 mg= 1 caps, ORAL, DAILY atorvastatin(atorvasta tin 20 mg oral tablet), 20 mg= 1 tabs, ORAL, DAILY buPROPion(buPROPion 300 mg/24 hours (XL) oral tablet, extended release), 300 mg= 1 tabs, ORAL, DAILY hydrOXYzine(hydrOXYzin e hydrochloride 10 mg oral tablet), 10 mg= 1 tabs, ORAL, QID, PRN levothyroxine(levothyr oxine 88 mcg (0.088 mg) oral tablet), 88 mcg= 1 tabs, ORAL, DAILY BEFORE BREAKFAST (more content not included)... Normal [facility] Anion gap in Serum or Plasma Ordered By: Varsha Beth on 06-05-2024 Anion gap [Moles/Vol] 16 mmol/L High 5-15 [facility] BUN/creatinine ratioOrdered By: Varsha Beth on 06-05-2024 Urea nitrogen/Creatinine [Mass ratio] 9.8 mg/mg Low 10-20 [facility] Bilirubin, totalOrdered By: Varsha Beth on 06-05-2024 Bilirubin [Mass/Vol] 0.30 mg/dL 0.00-1.30 [facility] CBC W/Diff, Automatedon 05-24 Absolute Neut Normal 2.0-7.7 [facility] Comment on above: Result Comment: This specimen has been REJECTED due to Laboratory criteria: Clotted. EMAIL SENT has been notified of need of recollection. 06/05/24 2226 Mario Condon Performed By: #### L 100.0100, L500.4050, L501.42420, L501.9520, L506.0400, L3100.5850 #### [facility] [address] [place], [address] HCT Normal 37-47 [facility] Comment on above: Result Comment: This specimen has been REJECTED due to Laboratory criteria: Clotted. EMAIL SENT has been notified of need of recollection. 06/05/242227 Mario De Smet Performed By: #### L 100.0100, L500.4050, L501.80227, L501.9520, L506.0400, L3100.5850 #### [facility] [address] [place], [address] HGB Normal 12.0-15.0 [facility] Comment on above: Result Comment: This specimen has been REJECTED due to Laboratory criteria: Clotted. EMAIL SENT has been notified of need of recollection. 06/05/242227 Mario De Smet Performed By: #### L 100.0100, L500.4050, L501.43570, L501.9520, L506.0400, L3100.5850 #### [facility] [address] [place], [address] MCH Normal 27.0-32.0 [facility] Comment on above: Result Comment: This specimen has been REJECTED due to Laboratory criteria: Clotted. EMAIL SENT has been notified of need of recollection. 06/05/248 Mario Roseanna Performed By: #### L 100.0100, L500.4050, L501.34924, L501.9520, L506.0400, L3100.5850 #### [facility] [address] [place], [address] MCHC Normal 32-36 [facility] Comment on above: Result Comment: This specimen has been REJECTED due to Laboratory criteria: Clotted. EMAIL SENT has been notified of need of recollection. 06/05/248 Mario De Smet Performed By: #### L 100.0100, L500.4050, L501.49352, L501.9520, L506.0400, L3100.5850 #### [facility] [address] [place], [address] MCV Normal 81-99 [facility] Comment on above: Result Comment: This specimen has been REJECTED due to Laboratory criteria: Clotted. EMAIL SENT has been notified of need of recollection. 06/05/242227 Mario Roseanna Performed By: #### L 100.0100, L500.4050, L501.15979, L501.9520, L506.0400, L3100.5850 #### [facility] [address] [place], [address] NEUT% Normal 47-70 [facility] Comment on above: Result Comment: This specimen has been REJECTED due to Laboratory criteria: Clotted. EMAIL SENT has been notified of need of recollection. 06/05/242227 Mario De Smet Performed By: #### L 100.0100, L500.4050, L501.85892, L501.9520, L506.0400, L3100.5850 #### [facility] [address] [place], [address] PLT Normal 150-450 [facility] Comment on above: Result Comment: This specimen has been REJECTED due to Laboratory criteria: Clotted. EMAIL SENT has been notified of need of recollection. 06/05/242227 Mario Roseanna Performed By: #### L 100.0100, L500.4050, L501.50603, L501.9520, L506.0400, L3100.5850 #### [facility] [address] [place], [address] RBC Normal 4.2-5.4 [facility] Comment on above: Result Comment: This specimen has been REJECTED due to Laboratory criteria: Clotted. EMAIL SENT has been notified of need of recollection. 06/05/242227 Mario Roseanna Performed By: #### L 100.0100, L500.4050, L501.80031, L501.9520, L506.0400, L3100.5850 #### [facility] [address] [place], [address] RDW CV Normal 11.6-14.6 [facility] Comment on above: Result Comment: This specimen has been REJECTED due to Laboratory criteria: Clotted. EMAIL SENT has been notified of need of recollection. 06/05/242227 Mario De Smet Performed By: #### L 100.0100, L500.4050, L501.85112, L501.9520, L506.0400, L3100.5850 #### [facility] [address] [place], [address] RDW SD Normal 35.1-43.9 [facility] Comment on above: Result Comment: This specimen has been REJECTED due to Laboratory criteria: Clotted. EMAIL SENT has been notified of need of recollection. 06/05/242227 Mario Roseanna Performed By: #### L 100.0100, L500.4050, L501.54462, L501.9520, L506.0400, L3100.5850 #### [facility] [address] [place], [address] WBC Normal 4.4-11.0 [facility] Comment on above: Result Comment: This specimen has been REJECTED due to Laboratory criteria: Clotted. EMAIL SENT has been notified of need of recollection. 06/05/242227 Mario Roseanna Performed By: #### L 100.0100, L500.4050, L501.19536, L501.9520, L506.0400, L3100.5850 #### [facility] [address] [place], [address] Calculated very low density lipoprotein (VLDL) cholesterol measurementOrdered By: Varsha Beth on 06-05-2024 Calculated very low density lipoprotein (VLDL) cholesterol measurement 45 mg/dL High 5-40 [facility] VLDL Cholesterol 45 mg/dL High 5-40 [facility] Carbon dioxide, total [Moles /volume] in Central venous bloodOrdered By: Varsha Beth on 06-05-2024 CO2 [Moles/Vol] 22.3 mmol/L 21.0-32.0 [facility] Chloride assayOrdered By: Do ra Beth on 06-05-2024 Chloride [Moles/Vol] 100 mmol/L 98-108 [facility] Comprehensive Metabolic Prof ilon 06-05-2024 Albumin [Mass/Vol] 4.8 g/dL Normal 3.5-5.0 [facility] Comment on above: Performed By: #### L 100.0100, L500.4050, L501.75813, L501.9520, L506.0400, L3100.5850 #### [facility] [address] [place], [address] Albumin/Globulin [Mass ratio] 1.5 {ratio} Normal 0.9-2.4 [facility] Comment on above: Performed By: #### L 100.0100, L500.4050, L501.14302, L501.9520, L506.0400, L3100.5850 #### [facility] [address] [place], [address] ALK PHOS 78 U/L Normal 35-104 [facility] Comment on above: Performed By: #### L 100.0100, L500.4050, L501.70782, L501.9520, L506.0400, L3100.5850 #### [facility] [address] [place], [address] ALT [Catalytic activity/Vol] 27 U/L Normal <=34 [facility] Comment on above: Performed By: #### L 100.0100, L500.4050, L501.68655, L501.9520, L506.0400, L3100.5850 #### [facility] [address] [place], [address] AST [Catalytic activity/Vol] 25 U/L Normal <=31 [facility] Comment on above: Result Comment: Hemo lysis present, Results??could be affected. ?? Performed By: #### L 100.0100, L500.4050, L501.03269, L501.9520, L506.0400, L3100.5850 #### [facility] [address] [place], [address] Bilirubin [Mass/Vol] 0.30 mg/dL Normal 0.00-1.30 [facility] Comment on above: Performed By: #### L 100.0100, L500.4050, L501.64608, L501.9520, L506.0400, L3100.5850 #### [facility] [address] [place], [address] BUN/CRE 9.8 RATIO Low 10-20 [facility] Comment on above: Performed By: #### L 100.0100, L500.4050, L501.17412, L501.9520, L506.0400, L3100.5850 #### [facility] [address] [place], [address] Calcium [Mass/Vol] 10.9 mg/dL Normal 7.6-11.0 [facility] Comment on above: Performed By: #### L 100.0100, L500.4050, L501.55844, L501.9520, L506.0400, L3100.5850 #### [facility] [address] [place], [address] Chloride [Moles/Vol] 100 mmol/L Normal 98-108 [facility] Comment on above: Performed By: #### L 100.0100, L500.4050, L501.60490, L501.9520, L506.0400, L3100.5850 #### [facility] [address] [place], [address] CO2 [Moles/Vol] 22.3 mmol/L Normal 21.0-32.0 [facility] Comment on above: Performed By: #### L 100.0100, L500.4050, L501.99958, L501.9520, L506.0400, L3100.5850 #### [facility] [address] [place], [address] Creatinine [Mass/Vol] 0.90 mg/dL Normal 0.70-1.20 [facility] Comment on above: Performed By: #### L 100.0100, L500.4050, L501.68163, L501.9520, L506.0400, L3100.5850 #### [facility] [address] [place], [address] GAP 16 High 5-15 [facility] Comment on above: Performed By: #### L 100.0100, L500.4050, L501.20148, L501.9520, L506.0400, L3100.5850 #### [facility] [address] [place], [address] GFR/1.73 sq M.predicted among non-blacks MDRD (S/P/Bld) [Vol rate/Area] 81 mL/min/{1.73_m2} Normal >60 [facility] Comment on above: Result Comment: mL/m in/1.73m2 CKD-EPI Creatinine Equation (2020) Performed By: #### L 100.0100, L500.4050, L501.57957, L501.9520, L506.0400, L3100.5850 #### [facility] [address] [place], [address] Globulin (S) [Mass/Vol] 3.2 g/dL Normal 2.2-4.2 [facility] Comment on above: Performed By: #### L 100.0100, L500.4050, L501.67860, L501.9520, L506.0400, L3100.5850 #### [facility] [address] [place], [address] Glucose [Mass/Vol] 98 mg/dL Normal 70-99 [facility] Comment on above: Performed By: #### L 100.0100, L500.4050, L501.94578, L501.9520, L506.0400, L3100.5850 #### [facility] [address] [place], [address] Potassium [Moles/Vol] 4.0 mmol/L Normal 3.3-5.1 [facility] Comment on above: Result Comment: Hemo lysis present, Results??could be affected. ?? Performed By: #### L 100.0100, L500.4050, L501.32843, L501.9520, L506.0400, L3100.5850 #### [facility] [address] [place], [address] Sodium [Moles/Vol] 138 mmol/L Normal 133-145 [facility] Comment on above: Performed By: #### L 100.0100, L500.4050, L501.43888, L501.9520, L506.0400, L3100.5850 #### [facility] [address] [place], [address] T PROT 8.1 g/dL Normal 5.9-8.4 [facility] Comment on above: Performed By: #### L 100.0100, L500.4050, L501.35630, L501.9520, L506.0400, L3100.5850 #### [facility] [address] [place], [address] Urea nitrogen [Mass/Vol] 9 mg/dL Normal 4-19 [facility] Comment on above: Performed By: #### L 100.0100, L500.4050, L501.89945, L501.9520, L506.0400, L3100.5850 #### [facility] [address] [place], [place], [address] Free C5Xvjatvl By: Varsha wright on 06-05-2024 Free T3 [Mass/Vol] 3.0 pg/mL 2.18-3.98 [facility] Free Triiodothyronine (T3) pg/dL 3.0 pg/mL 2.18-3.98 [facility] Free T3on 06-05-2024 Free T3 [Mass/Vol] 3.0 pg/mL Normal 2.18-3.98 [facility] Comment on above: Performed By: #### L 100.0100, L500.4050, L501.72911, L501.9520, L506.0400, L3100.5850 #### [facility] [address] [place], [place], [address] GFR/1.73 sq M.predicted leonel g non-blacks MDRD (S/P/Bld) [Vol rate/Area]Ordered By: Varsha Beth on 06-05-2024 Estimated GFR (MDRD) Non-Af Amer 81 >60 [facility] Comment on above: mL/min/1.73m2 CKD-EP I Creatinine Equation (2020) Glomerular filtration rate ( GFR) estimation/1.73 sq m using serum, plasma, or whole bOrdered By: Varsha Beth on 06-05-2024 GFR/1.73 sq M.predicted among non-blacks MDRD (S/P/Bld) [Vol rate/Area] 81 mL/min/{1.73_m2} >60 [facility] Comment on above: mL/min/1.73m2 CKD-EP I Creatinine Equation (2020) LDL calc ser/plasOrdered By: Varsha Beth on 06-05-2024 Cholesterol in LDL [Mass/Vol] 135 mg/dL [facility] Comment on above: Gpldlxbpyn=581-156 m g/dL & Higher Tasg=283 mg/dL or greater LDL Cholesterol, Calculated 135 mg/dL [facility] Comment on above: Afdkhkofvu=111-872 m g/dL & Higher Jkue=711 mg/dL or greater Laboratory - Chemistry and C hemistry - challengeOrdered By: Varsha Beth on 06-05-2024 AST [Catalytic activity/Vol] 25 U/L <32 [facility] Comment on above: Hemolysis present, R esults could be affected. Lipid Profileon 06-05-2024 CHOL:HDL 4.10 Normal [facility] Comment on above: Performed By: #### L 100.0100, L500.4050, L501.49828, L501.9520, L506.0400, L3100.5850 #### [facility] [address] [place], [address] Cholesterol [Mass/Vol] 238 mg/dL High <=200 [facility] Comment on above: Result Comment: Chol esterol level, Desirable <200 mg/dL Borderline high cholesterol 200-239 mg/dL High cholesterol >=240 mg/dL Recommendations of the NCEP Adult Treatment Panel for the following risk-cutoff thresholds for the [place] population. Performed By: #### L 100.0100, L500.4050, L501.72821, L501.9520, L506.0400, L3100.5850 #### [facility] [address] [place], [address] Cholesterol in HDL [Mass/Vol] 58 mg/dL Normal [facility] Comment on above: Result Comment: Ale onal Cholesterol Education Program (NCEP) guidelines: <40 mg/dL: Low HDL-cholesterol (major risk factor for CHD) >= 60 mg/dL: High HDL-cholesterol (negative risk factor for CHD) HDL-cholesterol is affected by a number of factors, e.g. smoking, exercise, hormones, sex and age. Performed By: #### L 100.0100, L500.4050, L501.49746, L501.9520, L506.0400, L3100.5850 #### [facility] [address] [place], [address] Cholesterol in LDL [Mass/Vol] 135 mg/dL Normal [facility] Comment on above: Result Comment: Bord jvnaxm=677-062 mg/dL Higher Zppb=127 mg/dL or greater Performed By: #### L 100.0100, L500.4050, L501.11450, L501.9520, L506.0400, L3100.5850 #### [facility] [address] [place], [address] Cholesterol in VLDL [Mass/Vol] 45 mg/dL High 5-40 [facility] Comment on above: Performed By: #### L 100.0100, L500.4050, L501.75759, L501.9520, L506.0400, L3100.5850 #### [facility] [address] [place], [address] Triglyceride [Mass/Vol] 223 mg/dL High [facility] Comment on above: Result Comment: The drugs N-Acetylcysteine and Metamizole may falsely depress this assay. Normal range: <150 mg/dL Borderline High: 150-199 mg/dL High: 200-499 mg/dL Very High: >500 mg/dL Performed By: #### L 100.0100, L500.4050, L501.00461, L501.9520, L506.0400, L3100.5850 #### [facility] [address] [place], [address] Potassium (Unsp spec) [Mass/ Vol]Ordered By: Varsha Beth on 06-05-2024 Potassium [Moles/Vol] 4.0 mmol/L 3.3-5.1 [facility] Comment on above: Hemolysis present, R esults could be affected. Potassium measurement (mass/ volume)Ordered By: Varsha Beth on 06-05-2024 Potassium (Unsp spec) [Mass/Vol] 4.0 mmol/L 3.3-5.1 [facility] Comment on above: Hemolysis present, R esults could be affected. Screening total cholesterol/ high density lipoprotein (HDL) cholesterol ratioOrdered By: Varsha Beth on 06-05-2024 Cholesterol.total/Cholest rell in HDL [Mass ratio] 4.10 {ratio} [facility] Serum creatinine measurement (mass/volume)Ordered By: Varsha Beth on 06-05-2024 Creatinine [Mass/Vol] 0.90 mg/dL 0.70-1.20 [facility] Serum globulin measurementOr dered By: Varsha Beth on 06-05-2024 Globulin (S) [Mass/Vol] 3.2 g/dL 2.2-4.2 [facility] Serum glucose measurement (m ass/volume)Ordered By: Varsha Beth on 06-05-2024 Glucose [Mass/Vol] 98 mg/dL 70-99 [facility] Serum or plasma alanine allen otransferase (ALT) measurementOrdered By: Varsha Beth on 06-05-2024 ALT [Catalytic activity/Vol] 27 U/L <35 [facility] Serum or plasma albumin raven urement (mass/volume)Ordered By: Varsha Beth on 06-05-2024 Albumin [Mass/Vol] 4.8 g/dL 3.5-5.0 [facility] Serum or plasma albumin/glob ulin mass ratioOrdered By: Varsha Beth on 06-05-2024 Albumin/Globulin [Mass ratio] 1.5 {ratio} 0.9-2.4 [facility] Serum or plasma alkaline praveen sphatase measurementOrdered By: Varsha Beth on 06-05-2024 ALP [Catalytic activity/Vol] 78 U/L 35-104 [facility] Serum or plasma calcium raven urement (mass/volume)Ordered By: Varsha Beth on 06-05-2024 Calcium [Mass/Vol] 10.9 mg/dL 7.6-11.0 [facility] Serum or plasma cholesterol in HDL measurement (mass/volume)Ordered By: Varsha Beth on 06-05-2024 Cholesterol in HDL [Mass/Vol] 58 mg/dL >40 [facility] Comment on above: National Cholesterol Education Program (NCEP) guidelines:<40 mg/dL: Low HDL-cholesterol (major risk factor for CHD)>= 60 mg/dL: High HDL-cholesterol (negative risk factor for CHD)HDL-cholesterol is affected by a number of factors, e.g. smoking, exercise, hormones, sex and age. Serum or plasma cholesterol measurement (mass/volume)Ordered By: Varsha Beth on 06-05-2024 Cholesterol [Mass/Vol] 238 mg/dL High <201 [facility] Comment on above: Cholesterol level, D esirable <200 mg/dLBorderline high cholesterol 200-239 mg/dLHigh cholesterol >=240 mg/dLRecommendations of the NCEP Adult Treatment Panel for the following risk-cutoff thresholds for the [place] population. Serum or plasma urea nitroge n measurement (mass/volume)Ordered By: Varsha Beth on 06-05-2024 Urea nitrogen [Mass/Vol] 9 mg/dL 4-19 [facility] Sodium levelOrdered By: Varsha Beth on 06-05-2024 Sodium [Moles/Vol] 138 mmol/L 133-145 [facility] T4 Free Directon 06-05-2024 T4 FREE DIRECT 1.50 ng/dL High 0.76-1.46 [facility] Comment on above: Performed By: #### L 100.0100, L500.4050, L501.27187, L501.9520, L506.0400, L3100.5850 #### [facility] [place], [address] T4 freeOrdered By: Varsha wright on 06-05-2024 Free T4 [Mass/Vol] 1.50 ng/dL High 0.76-1.46 [facility] TSH DL <= 0.005 mIU/L QnOrde red By: Varsha Beth on 06-05-2024 Thyroid Stimulating Hormone (TSH) 1.020 uIU/mL 0.300-4.200 [facility] TSH Qn 1.020 uIU/mL 0.300-4.200 [facility] Thyroid Stim Hormone (TSH)on 06-05-2024 TSH 1.020 uIU/mL Normal 0.300-4.200 [facility] Comment on above: Performed By: #### L 100.0100, L500.4050, L501.80792, L501.9520, L506.0400, L3100.5850 #### [facility] [place], [address] Total proteinOrdered By: Jaspal Beth on 06-05-2024 Protein [Mass/Vol] 8.1 g/dL 5.9-8.4 [facility] Triglycerides measurementOrd ered By: Varsha Beth on 06-05-2024 Triglyceride [Mass/Vol] 223 mg/dL High <199 [facility] Comment on above: The drugs N-Acetylcy steine and Metamizole may falsely depress this assay. Normal range: <150 mg/dLBorderline High: 150-199 mg/dLHigh: 200-499 mg/dLVery High: >500 mg/dL [facility] Physician Progress No lasha 05-29-2024 [facility] Physician Progress Note BIN BILL :1980 Registration Date:05/29/2024 Assessment/Plan This Visit Diagnosis Postoperative state Z98.890 Ordered: AQUILES Postop followup during global period 89906, 05/29/2024 15:00:00 EST, Postoperative state Medication Reconciliation What How Much When Why Instructions Unchanged acetaminophen-hydrocod one (acetaminophen-HYDROco done 325 mg-5 mg oral tablet) 1 Tabs [...] the past: No (05/29/24 15:07:00) incisions: c/d/i OPERATIONS PROJECT MANAGER Additional Details Menstrual History Menstrual StatusHysterectomy(Rec orded: 05/29/2024 15:07 EST) Menstrual StatusHysterectomy(Rec orded: 05/29/2024 15:07 EST) OPERATIONS PROJECT MANAGER Screening Date of Last Pap Smear12/06/2023 Last Pap Result, Pt StatedNegative Last Pap Result CommentNeg HPV Date of Last Mammogram, Pt StatedNever Contraception Contraception MethodSterilization for contraception Sterilization TypeHysterectomy OB History History (2,0,0,2) # 1 Baby 1 Outcome Date: 06/17/1998 Outcome or Result: Vaginal Gest Age: 40 weeks Outcome: Live Sex: Male Hospital: [facility] Dr Mullen # 2 Baby 1 Outcome Date: 12/06/2003 Outcome or Result: Vaginal Gest Age: 40 weeks Outcome: Live Sex: Male Hospital: [facility] Dr Milan Problem List/Past Medical History Ongoing Faint heart murmur Menorrhagia Palpitations Historical Procedure/Surgical History Total laparoscopic hysterectomy, bilateral salpingectomy - Fibroid uterus, Abnormal uterine bleedin05/19/24: NAS LAM FACOG, BENJI pilonidal cyst: 2017 Hysteroscopy, D&C, Ablation: 2008 Cologard - Never Colonoscopy - Never Medications acetaminophen-hydrocod one(acetaminophen-HYDR Ocodone 325 mg-5 mg oral tablet), 1 tabs, ORAL, [id number], PRN atomoxetine(Strattera 80 mg oral capsule), 80 mg= 1 caps, ORAL, DAILY atorvastatin(atorvasta tin 20 mg oral tablet), 20 mg= 1 tabs, ORAL, DAILY buPROPion(buPROPion 300 mg/24 hours (XL) oral tablet, extended release), 300 mg= 1 tabs, ORAL, DAILY hydrOXYzine(hydrOXYzin e hydrochloride 10 mg oral tablet), 10 mg= 1 tabs, ORAL, QID, PRN levothyroxine(levothyr oxine 88 mcg (0.088 mg) oral tablet), 88 mcg= 1 tabs, ORAL, DAILY BEFORE BREAKFAST Non-Formulary Med(Uro-vaginal probiotic), 1 caps, ORAL, DAILY Non-Formulary Med(Ashwagandha), 2 gummies, ORAL, DAILY traMADol(traMADol 50 mg oral tablet), 50 mg= 1 tabs, ORAL, [id number], PRN trazodone = Desyrel(traZODone 100 mg oral tablet), 200 mg= 2 tabs, ORAL, QHS valACYclovir(valACYclo vir 1 g oral tablet), 1 g= 1 tabs, ORAL, BID, PRN venlafaxine(venlafaxin e 75 mg oral capsule, extended release), 225 mg= 3 caps, ORAL, DAILY Allergies No Known Allergies No Known Medication Allergies Social History Alcohol Use:Current Frequency:1-2 times per month Sexual Sexually active:Yes Other contraceptive use:BTL Substance Abuse - Denies Substance Abuse Tobacco Use:Former smoker, quit more than 30 days ago Type:Cigarettes Family History D (more content not included)... Normal [facility] Phone Msgon 05-23-2024 Phone Msg - From: Deb Hermosillo Sent: 05/23/2024 14:40:32 EST Subject: RESCHEDULE Caller Name: BIN BILL; Caller Number: Shannan L/V/M TO RESCHEDULE DO TO DR. Gallardo OUT OF OFFICE THE DATE. LOOKING TO SCHEDULE ON 05/29/2024 AT 14:50 Normal [facility] SURGICAL PATH REPORTon 05-22 SURGICAL PATH REPORT [facility] Department of Pathology [address] [place] [address] Name: BIN BILL : 1980 Financial [id number] Number: Gender Female Locatio ASC : n: Admit 43 years Attending BENJI MILAN MD, FACOG Age: Provider: Ordering BENJI MILAN MD, FACOG Provider: Consulti Surgical Pathology Report ng: ACCESSION: COLLECTED DATE/TIME: RECEIVED DATE/TIME: PATHOLOGIST: [id number] 05/19/2024 12:01 EST 05/19/2024 13:32 EST SANTIAGO [...] change. Immunohistochemistry staining shows positive ER negative NH and negative for Napsin A and described area which argues about clear-cell lesion/carcinoma of endometrium. Additional sections submitted from surrounding area showing no evidence of atypia or malignancy. SANTIAGO RINCON PATHOLOGIST (Electronic Signature) Date Verified 05/22/2024 EK Clinical Data PREOP DIAGNOSIS: MENORRHAGIA POSTOP DIAGNOSIS: SAME PROCEDURE: LAPAROSCOPIC ASSISTED VAGINAL HYSTERECTOMY, BILATERAL SALPINGECTOMY SPECIMEN: UTERUS/CERVIX/FALLOPIA N TUBES Gross Description Labeled uterus cervix fallopian [...] to distal. The uterus proper weighs ____ ____ Print 05/26/2024 10:07 EST Number: Date/Time: [facility] Department of Pathology [address] [place] [id number] Name: BIN BILL : 1980 [facility] [id number] Number: Gender Female Locatio ASC : n: Admit 43 years Attending BENJI MILAN MD, FACOG Age: Provider: Ordering BENJI MILAN MD, FACOG Provider: Consulti Surgical Pathology Report ng: ACCESSION: COLLECTED DATE/TIME: RECEIVED DATE/TIME: PATHOLOGIST: [id number] 05/19/2024 12:01 EST 05/19/2024 13:32 EST SANTIAGO [...] measures up to 2.5 cm in thickness. Laboratory Technical Specialist sections are submitted under the following designations: [...] is based on a microscopic exam of loan representative sections. NOTE: One or more (more content not included)... Normal [facility] Comment on above: Performed By: #### [id number] #### [facility] Laboratory Services [address] [place] [id number] Wood Web Weaving Machine Operator: Landon Calabrese MD Phone Msgon 05-21-2024 Phone Msg Entered by BENJI MILAN MD, FACOG on May 21, 2024 13:49:48 EST From: BENJI MILAN MD, FACOG To: [facility] Sent: 05/21/2024 13:49:48 EST Subject: Medication Management Not Approved: Refill not appropriate acetaminophen-hydrocod one (hydrocodone 5 mg-acetaminophen 325 mg tablet) TAKE 1 TABLET BY MOUTH EVERY 6 HOURS NEEDED FOR PAIN FOR 5 DAYS Qty: 20 tabs Days Supply: 5 Refills: 0 Substitutions Allowed Route To Pharmacy - [facility] From: [facility] To: BENJI MILAN MD Sent: May 21, 2024 12:48:05 PM EST Subject: Medication Management Due: May 22, 2024 6:46:54 AM EST On Hold Pending Signature Drug: acetaminophen-hydrocod one (acetaminophen-HYDROco done 325 mg-5 mg oral tablet), 1 tabs ORAL [id number],x5 days,PRN:Mild Pain Quantity: 20 tabs Days Supply: 0 Refills: 0 Substitutions Allowed Notes from Pharmacy: Dispensed Drug: acetaminophen-hydrocod one (acetaminophen-HYDROco done 325 mg-5 mg oral tablet), TAKE 1 TABLET BY MOUTH EVERY 6 HOURS NEEDED FOR PAIN FOR 5 DAYS Quantity: 20 tabs Days Supply: 5 Refills: 0 Substitutions Allowed Notes from Pharmacy: Normal [facility] Anesthesiaon 05-19-2024 Anesthesia Patient: BIN BILL Age: 43 years Sex: [...] vomiting. Postoperative hydration status: euvolemic. Notes: normothermia. Normal [facility] Anesthesia Patient: BIN BILL Age: 43 years Sex: [...] mg-325 mg oral tablet 1 tabs, ORAL, [id number] Strattera 80 mg oral capsule 80 mg = 1 caps, ORAL, DAILY traMADol 50 mg oral tablet 50 mg = 1 tabs, PRN, ORAL, [id number] traZODone 100 mg oral tablet 200 mg [...] Comment: quit January 2024 (05/08/2024 13:10 - Genoveva Rodas RN) Psychosocial History No active psychosocial history has [...] Regular rhythm, No murmur. Assessment and Plan [place] Society of Anesthesiologists (ASA) physical status classification: Class II. Anesthetic Preoperative Plan Premedication: intravenous. Anesthetic technique: General anesthesia. Induction: intravenously. Maintenance airway: Oral endotracheal tube. Special monitoring: Standard ASA monitors.. Risks discussed: nausea, vomiting, headache, sore throat, dental injury, hypotension, allergic reaction, serious complications, Questions answered. Risks and Benefits explained. Rationale and Alternatives discussed with patient/guardian/paren t (s)/family.. Informed consent: signed by patient. Notes. PARDEEP Preanesthesia Assessment: PARDEEP Diagnosed: No. PARDEEP Positive Screen and Counseling: No. Normal [facility] HCTon 05-19-2024 Hematocrit (Bld) [Volume fraction] 45.5 % Normal 36.0-46.0 [facility] Comment on above: Performed By: #### 1 [id number] #### [facility] Laboratory Services [address] [place], [place] [id number] Wood Web Weaving Machine Operator: Landon Calabrese MD Operative Reporton Operative Report BIN BILL :1980 Date of Operation 05/19/2024 [...] MD, FACOG (Surgeon Primary) Martha(Secondary) Indication for Rail Operations Controller Given the inherent complexity of this surgery, a second surgeon or a surgically skilled Physician Cloth Edge Singer was necessary for the successful completion of this entire operative procedure. The review assistant was essential for safe and proper positioning [...] correct at the end of the procedure. Normal [facility] POC Glucoseon 05-19-2024 Glucose [Mass/Vol] 102 mg/dL High 72-100 [facility] Comment on above: Performed By: #### 1 [id number] ####[facility] Laboratory [id number] [place] [id number] Medical Director: Landon Calabrese MD DVT/VTE Risk Factor-Texton 0 05-08-2024 DVT/VTE Risk Factor-Text DVT/VTE Risk Fa ctor Entered On: 05/08/2024 13:22 EST Performed On: [...] Genoveva Rodas RN - 05/08/2024 13:22 EST Normal [facility] Preadmission Testing Progres s Noteon 05-08-2024 Preadmission Testing Progress Note VTE risk assessment and order sheet faxed to Dr. Milan for review. Normal [facility] Physician Progress No lasha 04-10-2024 [facility] Physician Progress Note LANDYBIN :1980 Registration Date:04/10/2024 Assessment/Plan This Visit Diagnosis Abnormal uterine bleeding N93.9 Plan for NOE ANDUJAR Ordered: AMB Ultrasound, transvaginal 11150, 04/10/2024 08:01:00 EST, Abnormal uterine bleeding, 1 [...] effort Extremities: no edema Psychiatric: Mood: normal OPERATIONS PROJECT MANAGER Additional Details Menstrual History Menstrual StatusProphylaxis OPERATIONS PROJECT MANAGER Screening Date of Last Pap Smear12/06/2023 Last Pap Result, Pt StatedNegative Last Pap Result CommentNeg HPV Date of Last Mammogram, Pt StatedNever Contraception Contraception MethodSterilization for contraception Sterilization TypeTubal ligation OB History History (2,0,0,2) # 1 Baby 1 Outcome Date: 06/17/1998 Outcome or Result: Vaginal Gest Age: 40 weeks Outcome: Live Sex: Male Hospital: [facility] Dr Mullen # 2 Baby 1 Outcome Date: 12/06/2003 Outcome or Result: Vaginal Gest Age: 40 weeks Outcome: Live Sex: Male Hospital: [facility] Dr Milan Problem List/Past Medical History Ongoing Faint heart murmur Palpitations Historical Procedure/Surgical History pilonidal cyst: 2016 Hysteroscopy, D&C, Ablation: 2008 Cologard - Never Colonoscopy - Never Medications atorvastatin(atorvasta tin 20 mg oral tablet) buPROPion(buPROPion 300 mg/24 hours (XL) oral tablet, extended release) drospirenone(Slynd 4 mg oral tablet), 4 mg= 1 tabs, ORAL, DAILY, 3 refills hydrOXYzine(hydrOXYzin e hydrochloride 10 mg oral tablet) levothyroxine(levothyr oxine 88 mcg (0.088 mg) oral tablet) lisdexamfetamine(Vyvan se 50 mg oral capsule) simvastatin(simvastati n 20 mg oral tablet), 20 mg= 1 tabs, ORAL, QHS traMADol(traMADol 50 mg oral tablet) trazodone = Desyrel(traZODone 100 mg oral tablet), 100 mg= 1 tabs, ORAL, BID valACYclovir(valACYclo vir 1 g oral tablet) venlafaxine(venlafaxin e 75 mg oral capsule, extended release) Allergies [...] Report Indication: Abnormal uterine bleeding History of abla (more content not included)... Normal [facility] Ambulatory Clinical Summaryo n 04-10-2024 Ambulatory Clinical Summary BIN BILL :1980 Registration Date:04/10/2024 Ambulatory Visit [...] for visit Day With Date Time Where [facility] Scheduled Surgery SW-LAPAROSCOPIC ASSISTED VAGINAL HYSTERECTOMY, BILATERAL SALPINGECTOMY (DR. MCKENNA ASSIST) Sunday Otilia Mckenna DO May 19, 2024 11:45 am [facility] [address] [facility] [address] [facility] ZIP:[address] Surgery SundayMay 19, 2024 12:00 pm EDT [facility] ZIP: Post OP - 2 Weeks TWO WEEK POST OP NOE ANDUJAR Sunday Benji Milan MD June 03, 2024 11:00 am EDT [facility] [address] [place] [address] [facility] ZIP:[address] Medications What How Much When Why Instructions [...] signs, call to get immediate medical attention! Normal [facility] Comprehensive Intake - Texto n 04-10-2024 Comprehensive Intake - Text Comprehensive Intake Entered On: 04/10/2024 14:42 EST [...] or previously received : No Ekta Sanz - 04/10/2024 14:38 EST Measurements Ht/Wt Measurement Refused [...] last year Ekta Sanz 04/10/2024 14:38 EST Normal [facility] OPERATIONS PROJECT MANAGER Visit - Texton OPERATIONS PROJECT MANAGER Visit - Text OPERATIONS PROJECT MANAGER Visit Entered On : 04/10/2024 14:43 EST Performed On: 04/10/2024 14:43 EST by Ekta Sanz OPERATIONS PROJECT MANAGER Menstrual History Menstrual Status : Prophylaxis Ekta Sanz 04/10/2024 14:43 EST OPERATIONS PROJECT MANAGER Screenings Date of Last Pap Smear : 12/06/2023 Last Pap Result : Negative Last Pap Result Comment : Neg HPV Date of Last Mammogram : Never Ekta Sanz 04/10/2024 14:43 EST Contraception Contraception Method : Sterilization for contraception Sterilization Type : Tubal ligation Ekta Sanz 04/10/2024 14:43 EST Normal [facility] US TV ECHO NON OB OFFICE TEOFILO Freitas 04-10-2024 US TV ECHO NON OB OFFICE READ Indication: Abnormal uterine bleeding History of ablation [...] not seen. Impression: Fibroid uterus. Non-visualized ovaries. Normal [facility] Comment on above: Order Comment: Order ed on Fin# [id number] Result Comment: Tech nologist: DM Dictated By: BENJI MILAN MD, FACOG Signed By: BENJI MILAN MD, FACOG Transcribed: 04.10.2024 14:20 Signed Out: 04/10/24 14:20:52 Phone Msgostef 03-25-2024 Phone Msg - From: Deb Hermosillo Sent: 03/25/2024 09:55:37 EST Subject: SURGERY Caller Name: BIN BILL; Caller Number: H Called left voice mail, need to change the date of her procedure with Dr. Milan. Normal [facility] Absolute neutrophil countOrd ered By: Varsha Beth on 03-06-2024 Neutrophils (Bld) [#/Vol] 8.5 10*3/uL High 2.0-7.7 [facility] Albumin to globulin ratioOrd ered By: Varsha Beth on 03-06-2024 Albumin/Globulin [Mass ratio] 1.1 {ratio} 0.9-2.4 [facility] Basophil percentageOrdered B y: Varsha Beth on 03-06-2024 Basophils/100 WBC (Bld) 0.8 % 0-1 [facility] Bilirubin, totalOrdered By: Varsha Beth on 03-06-2024 Bilirubin [Mass/Vol] 0.30 mg/dL 0.20-1.00 [facility] Comment on above: For patients on eltr ombopag therapy, use of Dimension [place] TBIL is not recommended. Blood urea nitrogen (BUN)/cr eatinine ratioOrdered By: Varsha Beth on 03-06-2024 Urea nitrogen/Creatinine [Mass ratio] 5.5 mg/mg Low 10-20 [facility] CBC W/Diff, Automatedon 02-23 SMEAR COMMENT SCANNED Normal [facility] Comment on above: Result Comment: LYMP HOCYTOSIS NOTED Performed By: #### L 100.0100, L500.4050, L501.59409, L501.9520, L506.0400, L3100.5850 #### [facility] Laboratory [address] [place], [address] Carbon dioxide measurementOr dered By: Varsha Beth on 03-06-2024 CO2 [Moles/Vol] 26.0 mmol/L 21.0-32.0 [facility] Chloride measurementOrdered By: Varsha Beth on 03-06-2024 Chloride [Moles/Vol] 103 mmol/L 98-107 [facility] Comprehensive Metabolic Prof ilon 03-06-2024 Albumin [Mass/Vol] 4.2 g/dL Normal 3.2-5.0 [facility] Comment on above: Performed By: #### L 100.0100, L500.4050, L501.45394, L501.9520, L506.0400, L3100.5850 #### [facility] [address] [place], [address] Albumin/Globulin [Mass ratio] 1.1 {ratio} Normal 0.9-2.4 [facility] Comment on above: Performed By: #### L 100.0100, L500.4050, L501.92011, L501.9520, L506.0400, L3100.5850 #### [facility] [address] [place], [address] ALK P 88 U/L Normal 45-117 [facility] Comment on above: Performed By: #### L 100.0100, L500.4050, L501.56009, L501.9520, L506.0400, L3100.5850 #### [facility] [address] [place], [address] ALT [Catalytic activity/Vol] 32 U/L Normal 13-56 [facility] Comment on above: Performed By: #### L 100.0100, L500.4050, L501.41691, L501.9520, L506.0400, L3100.5850 #### [facility] [address] [place], [address] AST [Catalytic activity/Vol] 20 U/L Normal 15-37 [facility] Comment on above: Performed By: #### L 100.0100, L500.4050, L501.69142, L501.9520, L506.0400, L3100.5850 #### [facility] [address] [place], [address] Bilirubin [Mass/Vol] 0.30 mg/dL Normal 0.20-1.00 [facility] Comment on above: Result Comment: For patients on eltrombopag therapy, use of Dimension [place] TBIL is not recommended. Performed By: #### L 100.0100, L500.4050, L501.59560, L501.9520, L506.0400, L3100.5850 #### [facility] [address] [place], [address] BUN/CRE 5.5 RATIO Low 10-20 [facility] Comment on above: Performed By: #### L 100.0100, L500.4050, L501.66421, L501.9520, L506.0400, L3100.5850 #### [facility] [address] [place], [address] CA,Total 10.2 mg/dL High 8.5-10.1 [facility] Comment on above: Performed By: #### L 100.0100, L500.4050, L501.53605, L501.9520, L506.0400, L3100.5850 #### [facility] [address] [place], [address] Chloride [Moles/Vol] 103 mmol/L Normal 98-107 [facility] Comment on above: Performed By: #### L 100.0100, L500.4050, L501.41716, L501.9520, L506.0400, L3100.5850 #### [facility] [address] [place], [address] CO2 [Moles/Vol] 26.0 mmol/L Normal 21.0-32.0 [facility] Comment on above: Performed By: #### L 100.0100, L500.4050, L501.65434, L501.9520, L506.0400, L3100.5850 #### [facility] [address] [place], [address] Creatinine [Mass/Vol] 0.90 mg/dL Normal 0.55-1.02 [facility] Comment on above: Result Comment: The validity of the calculated GFR GFRAA in patients over 70 years has not been determined. Clinical correlation is essential. Performed By: #### L 100.0100, L500.4050, L501.46496, L501.9520, L506.0400, L3100.5850 #### [facility] [address] [place], [address] EST GFR - AA 87 mL/min Normal >60 [facility] Comment on above: Result Comment: Afri can [place] GFR Calc Performed By: #### L 100.0100, L500.4050, L501.51191, L501.9520, L506.0400, L3100.5850 #### [facility] [address] [place], [address] GAP 8 Normal 5-15 [facility] Comment on above: Performed By: #### L 100.0100, L500.4050, L501.18353, L501.9520, L506.0400, L3100.5850 #### [facility] [address] [place], [address] GFR/1.73 sq M.predicted among non-blacks MDRD (S/P/Bld) [Vol rate/Area] 72 mL/min/{1.73_m2} Normal >60 [facility] Comment on above: Result Comment: Non- GFR Calc Performed By: #### L 100.0100, L500.4050, L501.56190, L501.9520, L506.0400, L3100.5850 #### [facility] [address] [place], [address] Globulin (S) [Mass/Vol] 3.8 g/dL Normal 2.2-4.2 [facility] Comment on above: Performed By: #### L 100.0100, L500.4050, L501.20892, L501.9520, L506.0400, L3100.5850 #### [facility] [address] [place], [address] Glucose [Mass/Vol] 84 mg/dL Normal 74-106 [facility] Comment on above: Performed By: #### L 100.0100, L500.4050, L501.10625, L501.9520, L506.0400, L3100.5850 #### [facility] [address] [place], [address] Potassium [Moles/Vol] 4.3 mmol/L Normal 3.5-5.1 [facility] Comment on above: Performed By: #### L 100.0100, L500.4050, L501.81053, L501.9520, L506.0400, L3100.5850 #### [facility] [address] [place], [address] Sodium [Moles/Vol] 136 mmol/L Normal 136-145 [facility] Comment on above: Performed By: #### L 100.0100, L500.4050, L501.04314, L501.9520, L506.0400, L3100.5850 #### [facility] [address] [place], [address] T PROT 8.0 g/dL Normal 6.4-8.2 [facility] Comment on above: Performed By: #### L 100.0100, L500.4050, L501.36532, L501.9520, L506.0400, L3100.5850 #### [facility] [address] [place], [address] Urea nitrogen [Mass/Vol] 5 mg/dL Low 7-18 [facility] Comment on above: Performed By: #### L 100.0100, L500.4050, L501.26334, L501.9520, L506.0400, L3100.5850 #### [facility] [address] [place], [address] Direct serum free thyroxine (FT4) measurementOrdered By: Varsha Beth on 03-06-2024 Free T4 [Mass/Vol] 1.27 ng/dL 0.76-1.46 [facility] Eosinophil percentageOrdered By: Varsha Beth on 03-06-2024 Eosinophils/100 WBC (Bld) 0.3 % 0-5 [facility] Erythrocyte distribution wid th ratioOrdered By: Varsha Beth on 03-06-2024 Erythrocyte distribution width (RBC) [Ratio] 12.9 % 11.6-14.6 [facility] Erythrocyte distribution wid th standard deviationOrdered By: Varsha Beth on 03-06-2024 Erythrocyte distribution width (RBC) [Entitic vol] 42.0 fL 35.1-43.9 [facility] Estimated glomerular filtrat ion rate (GFR) AmericanOrdered By: Varsha Beth on 03-06-2024 Estimated GFR (MDRD) Amer 87 mL/min >60 [facility] Comment on above: GFR Calc Free T3on 03-06-2024 Free T3 [Mass/Vol] 3.0 pg/mL Normal 2.18-3.98 [facility] Comment on above: Performed By: #### L 100.0100, L500.4050, L501.83013, L501.9520, L506.0400, L3100.5850 #### [facility] [address] [place], [place], [id number] Free [id number] By: Varsha wright on 03-06-2024 Free Triiodothyronine (T3) pg/dL 3.0 pg/mL 2.18-3.98 [facility] Glomerular filtration rate ( GFR) estimationOrdered By: Varsha Beth on 03-06-2024 Estimated GFR (MDRD) Non-Af Amer 72 mL/min >60 [facility] Comment on above: Non- GFR Calc Glucose measurementOrdered B y: Varsha Beth on 03-06-2024 Glucose [Mass/Vol] 84 mg/dL 74-106 [facility] Hematocrit Auto (Bld) [Volum e fraction]Ordered By: Varsha Beth on 03-06-2024 Hematocrit (Bld) [Volume fraction] 45.7 % 37-47 [facility] Hemoglobin A1con 03-06-2024 HbA1c (Bld) [Mass fraction] 5.6 % Normal 3.8-5.6 [facility] Comment on above: Result Comment: Norm al < 5.7 % Prediabetic 5.7 - 6.4 % Diabetic >or= 6.5 % Please note range changes. Performed By: #### L 100.0100, L500.4050, L501.40756, L501.9520, L506.0400, L3100.5850 #### [facility] [address] [place], [place], [id number] Hemoglobin A1c percentageOrd ered By: Varsha Beth on 03-06-2024 HbA1c (Bld) [Mass fraction] 5.6 % 3.8-5.6 [facility] Comment on above: Normal < 5.7 % Predi abetic 5.7 - 6.4 % Diabetic >or= 6.5 % Please note range changes. Hemoglobin measurementOrdere d By: Varsha Beth on 03-06-2024 Hemoglobin (Bld) [Mass/Vol] 15.5 g/dL High 12.0-15.0 [facility] High density lipoprotein (HD L) measurementOrdered By: Varsha Beth on 03-06-2024 Cholesterol in HDL [Mass/Vol] 54 mg/dL >40 [facility] [facility] Comment on above: The drugs N-Acetylcy steine and Metamizole may falsely depress this assay. Reference Range HDL <40 mg/dL Low HDL Cholesterol HDL >or= 60 mg/dL High HDL Cholesterol Immature granulocytes/100 WB C Auto (Bld)Ordered By: Varsha Beth on 03-06-2024 Immature granulocytes/100 WBC (Bld) 0.600 % 0.0-0.9 [facility] Comment on above: IG% - Immature Granu locytes (promyelocytes, myelocytes and metamyelocytes) > 1% indicates that a LEFT SHIFT is Present. Laboratory - Chemistry and C hemistry - challengeOrdered By: Varsha Beth on 03-06-2024 AST [Catalytic activity/Vol] 20 U/L 15-37 [facility] Lipid Profileon 03-06-2024 Cholesterol [Mass/Vol] 197 mg/dL Normal 200 [facility] Comment on above: Result Comment: <200 mg/dL Desirable 200-240 mg/dL Borderline >240 mg/dL High Risk Performed By: #### L 100.0100, L500.4050, L501.77713, L501.9520, L506.0400, L3100.5850 #### [facility] [address] [place], [address] Cholesterol in HDL [Mass/Vol] 54 mg/dL Normal [facility] Comment on above: Result Comment: The drugs N-Acetylcysteine and Metamizole may falsely depress this assay. Reference Range HDL <40 mg/dL Low HDL Cholesterol HDL >or= 60 mg/dL High HDL Cholesterol Performed By: #### L 100.0100, L500.4050, L501.91976, L501.9520, L506.0400, L3100.5850 #### [facility] [address] [place], [address] Cholesterol in LDL [Mass/Vol] 118 mg/dL Normal 0-130 [facility] Comment on above: Performed By: #### L 100.0100, L500.4050, L501.73199, L501.9520, L506.0400, L3100.5850 #### [facility] [address] [place], [address] Cholesterol in VLDL [Mass/Vol] 25 mg/dL Normal 5-40 [facility] Comment on above: Performed By: #### L 100.0100, L500.4050, L501.49301, L501.9520, L506.0400, L3100.5850 #### [facility] [address] [place], [address] Triglyceride [Mass/Vol] 124 mg/dL Normal [facility] Comment on above: Result Comment: The drugs N-Acetylcysteine and Metamizole may falsely depress this assay. Serum Triglycerides Reference Interval Normal <150 mg/dL Borderline high 150 - 199 mg/dL High 200 - 499 mg/dL Very High > or = 500 mg/dL Performed By: #### L 100.0100, L500.4050, L501.07531, L501.9520, L506.0400, L3100.5850 #### [facility] [address] [place], [address] Low density lipoprotein (LDL ) cholesterol measurementOrdered By: Varsha Beth on 03-06-2024 Cholesterol in LDL [Mass/Vol] 118 mg/dL 0-130 [facility] Lymphocytes Auto (Unsp spec) [#/Vol]Ordered By: Varsha Beth on 03-06-2024 Lymphocytes (Bld) [#/Vol] 5.06 10*3/uL High 0.83-4.5 1 [facility] Lymphocytes/100 WBC Auto (Un sp spec)Ordered By: Varsha Beth on 03-06-2024 Lymphocytes/100 WBC (Bld) 34.8 % 19-41 [facility] MCV (mean corpuscular volume ) determinationOrdered By: Varsha Beth on 03-06-2024 MCV (RBC) [Entitic vol] 88.7 fL 81-99 [facility] Manual differential comment Rogers (Bld) [Interp]Ordered By: Varsha Beth on 03-06-2024 Differential Comment SCANNED [facility] Comment on above: LYMPHOCYTOSIS NOTED Mean corpuscular hemoglobin (MCH) determinationOrdered By: Varsha Beth on 03-06-2024 MCH (RBC) [Entitic mass] 30.1 pg 27.0-32.0 [facility] Mean corpuscular hemoglobin concentration (MCHC) determinationOrdered By: Varsha Beth on 03-06-2024 MCHC (RBC) [Mass/Vol] 33.9 g/dL 32-36 [facility] Mean platelet volume determi nationOrdered By: Varsha Beth on 03-06-2024 Platelet mean volume (Bld) [Entitic vol] 9.1 fL 6.2-12.0 [facility] Monocyte percentageOrdered B y: Varsha Beth on 03-06-2024 Monocytes/100 WBC (Bld) 5.0 % 0-10 [facility] Neutrophil percentageOrdered By: Varsha Beth on 03-06-2024 Neutrophils/100 WBC (Bld) 58.5 % 47-70 [facility] Nucleated red blood cell per centageOrdered By: Varsha Beth on 03-06-2024 Nucleated RBC/100 WBC (Bld) [Ratio] 0 % 0-5 [facility] Platelet countOrdered By: Do ra Beth on 03-06-2024 Platelets (Bld) [#/Vol] 452 10*3/uL High 150-450 [facility] Potassium measurementOrdered By: Varsha Beth on 03-06-2024 Potassium [Moles/Vol] 4.3 mmol/L 3.5-5.1 [facility] RBC Auto (Bld) [#/Vol]Ordere d By: Varsha Beth on 03-06-2024 RBC (Bld) [#/Vol] 5.15 10*6/uL 4.2-5.4 [facility] Serum anion gap measurementO rdered By: Varsha Beth on 03-06-2024 Anion gap [Moles/Vol] 8 mmol/L 5-15 [facility] Serum globulin measurementOr dered By: Varsha Beth on 03-06-2024 Globulin (S) [Mass/Vol] 3.8 g/dL 2.2-4.2 [facility] Serum or plasma alanine allen otransferase (ALT) measurementOrdered By: Varsha Beth on 03-06-2024 ALT [Catalytic activity/Vol] 32 U/L 13-56 [facility] Serum or plasma albumin raven urement (mass/volume)Ordered By: Varsha Beth on 03-06-2024 Albumin [Mass/Vol] 4.2 g/dL 3.2-5.0 [facility] Serum or plasma alkaline praveen sphatase measurementOrdered By: Varsha Beth on 03-06-2024 ALP [Catalytic activity/Vol] 88 U/L 45-117 [facility] Serum or plasma calcium raven urement (mass/volume)Ordered By: Varsha Beth on 03-06-2024 Calcium [Mass/Vol] 10.2 mg/dL High 8.5-10.1 [facility] Serum or plasma cholesterol measurement (mass/volume)Ordered By: Varsha Beth on 03-06-2024 Cholesterol [Mass/Vol] 197 mg/dL <200 [facility] Comment on above: <200 mg/dL Desirable 200-240 mg/dL Borderline >240 mg/dL High Risk Serum or plasma creatinine m easurement (mass/volume)Ordered By: Varsha Beth on 03-06-2024 Creatinine [Mass/Vol] 0.90 mg/dL 0.55-1.02 [facility] Comment on above: The validity of the calculated GFR & GFRAA in patients over 70 years has not been determined. Clinical correlation is essential. Serum or plasma urea nitroge n measurement (mass/volume)Ordered By: Varsha Beth on 03-06-2024 Urea nitrogen [Mass/Vol] 5 mg/dL Low 7-18 [facility] Sodium levelOrdered By: Varsha Beth on 03-06-2024 Sodium [Moles/Vol] 136 mmol/L 136-145 [facility] T4 Free Directon 03-06-2024 T4 FREE DIRECT 1.27 ng/dL Normal 0.76-1.46 [facility] Comment on above: Performed By: #### L 100.0100, L500.4050, L501.60818, L501.9520, L506.0400, L3100.5850 #### [facility] [address] [place], [place], [id number] (163) TSH QnOrdered By: Varsha magana on 03-06-2024 Thyroid Stimulating Hormone (TSH) 1.330 uIU/mL 0.358-3.740 [facility] Thyroid Stim Hormone (TSH)on 03-06-2024 TSH 1.330 uIU/mL Normal 0.358-3.740 [facility] Comment on above: Performed By: #### L 100.0100, L500.4050, L501.78762, L501.9520, L506.0400, L3100.5850 #### [facility] [address] [place], [place], [id number] Total proteinOrdered By: Jaspal Beth on 03-06-2024 Protein [Mass/Vol] 8.0 g/dL 6.4-8.2 [facility] Triglycerides measurementOrd ered By: Varsha Beth on 03-06-2024 Triglyceride [Mass/Vol] 124 mg/dL <199 [facility] Comment on above: The drugs N-Acetylcy steine and Metamizole may falsely depress this assay.Serum Triglycerides Reference Interval Normal <150 mg/dL Borderline high 150 - 199 mg/dL High 200 - 499 mg/dL Very High > or = 500 mg/dL Very low density lipoprotein (VLDL) cholesterol measurementOrdered By: Varsha Beth on 03-06-2024 VLDL Cholesterol 25 mg/dL 5-40 [facility] White blood cell (WBC) count Ordered By: Varsha Beth on 03-06-2024 WBC (Bld) [#/Vol] 14.5 10*3/uL High 4.4-11.0 [facility] SURGICAL PATH REPORTon 03-04 SURGICAL PATH REPORT [facility] Department of Pathology [address] [place] [address] [phone] Name: BIN BILL : 1980 [facility] [id number] Number: Gender Female [facility] Lab Svc. : n: Admit 43 years Attending BENJI MILAN MD, FACOG Age: Provider: Ordering BENJI MILAN MD, FACOG Provider: Consulti Surgical Pathology Report ng: ACCESSION: COLLECTED DATE/TIME: RECEIVED DATE/TIME: PATHOLOGIST: [id number] 02/26/2024 11:40 EST 02/27/2024 10:43 EST TOY [...] is based on a microscopic exam of loan representative sections. ____ ____ Print 03/05/2024 11:45 EST Number: Date/Time: [facility] Department of Pathology [address] [place] [id number] Name: BIN BILL : 1980 [employer] [id number] Number: Gender Female Locatio [facility] Svc. : n: Admit 43 years Attending BENJI MILAN MD, FACOG Age: Provider: Ordering BENJI MILAN MD, FACOG Provider: Consulti Surgical Pathology Report ng: ACCESSION: COLLECTED DATE/TIME: RECEIVED DATE/TIME: PATHOLOGIST: [id number] 02/26/2024 11:40 EST 02/27/2024 10:43 EST SULTANA LAM, TOY Microscopic Diagnosis This report was transcribed using voice recognition technology and might contain unintended computerized clerical office worker errors. Codes CPT code: 65417 ____ ____ Print 03/05/2024 11:45 EST Number: Date/Time: [facility] Comment on above: Performed By: #### [id number] #### [facility] Services [address] [place] [address] [employer] Weaving Machine Operator: Landon Calabrese MD AMB Urine POC 8102 5on 02-26-2024 Beta HCG ( test) Ql (U) Urine Test Entered On: 02/26/2024 12:32 EST Performed On: 02/26/2024 12:32 EST by Ekta Sanz Urine HCG Urine Beta Human Chorionic Gonadotropin Qualitative : Negative Ekta Sanz - 02/26/2024 12:32 EST Normal [facility] AMB Physician Progress No lasha 02-26-2024 [facility] Physician Progress Note BIN BILL :1980 Registration Date:02/26/2024 Assessment/Plan This Visit Diagnosis 1. Pre-procedure lab exam Z01.812 Ordered: AMB Urine POC 30978, 02/26/2024 12:32:00 EST, Pre-procedure lab exam History of endometrial ablation Z98.890 Will plan for NOE ANDUJAR. EMB done today Ordered: AMB Endometrial bx wwo Endocerv Bx [place] Dilat 82559, 02/26/2024 12:27:00 EST, Menorrhagia / History of endometrial ablation, 1 AMB Schedule Surgery, 02/26/2024 12:43:00 EST, PRATIMA BS Menorrhagia N92.0 Will start Slynd Ordered: drospirenone(Slynd 4 mg oral tablet), 4 mg= 1 tabs, ORAL, DAILY, 3 refills AMB Endometrial [place] Dil[place] 07995, 02/26/2024 12:27:00 EST, Menorrhagia / History of endometrial ablation, 1 AMB Schedule Surgery, 02/26/2024 12:43:00 EST, NOE ANDUJAR Medication Reconciliation What How Much When Why Instructions New drospirenone (Slynd 4 mg oral tablet) 1 Tabs Oral DAILY Menorrhagia Refills: 3 Pickup at [facility]acy #[id number] Changed hydrOXYzine (hydrOXYzine hydrochloride 10 mg oral [...] sores Pharmacy Information [id number]: [address] [place], [place] [phone] 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 A speculum was placed. The cervix was cleansed with betadine swabs. An endometrial pipelle was advanced without difficulty. The uterus sounded to 8 cm. Two passes were done for adequate tissue so the procedure was terminated. All instruments were removed. She tolerated the procedure well. OPERATIONS PROJECT MANAGER Additional Details Menstrual History Menstrual StatusMenarcheal Last Menstrual Xadcyy7802/22/2024 OPERATIONS PROJECT MANAGER Screening Date of Last Pap Smear12/06/2023 Last Pap Result, Pt StatedNegative Last Pap Result CommentNeg HPV Date of Last Mammogram, Pt StatedNever Contraception Contraception MethodSterilization for contraception Sterilization TypeTubal ligation OB History History (2,0,0,2) # 1 Baby 1 Outcome Date: 06/17/1998 Outcome or Result: Vaginal Gest Age: 40 weeks Outcome: Live Sex: Male Hospital: [facility] Dr [address]ullen # 2 Baby 1 Outcome Date: 12/06/2003 Outcome or Result: Vaginal Gest Age: 40 weeks Outcome: Live Sex: Male Hospital (more content not included)... Normal [facility] Ambulatory Clinical Summaryo n 02-26-2024 Ambulatory Clinical Summary BIN BILL :1980 Registration Date:02/26/2024 Ambulatory Visit Instructions Your Diagnosis Pre-procedure lab exam History of endometrial ablation Menorrhagia Tests Performed AMB Urine POC 66465 Your Care Team Attending Physician - NAS LAM FACOG, BENIJ Primary Care Physician - JOANIE FRANCO Procedures [...] for visit Day With Date Time Where City&State - 40 f/u Ultrasound - Ruchi HADDAD April 10, 2024 01:40 pm EDT [facility] [address] [place] [address] [facility] ZIP:[id number] Established Patient F/U Benji Milan MD April 10, 2024 02:10 pm EDT [facility] [address] [place] [address] Road [address] [facility] ZIP:[address] Medications What How Much When Why Instructions New drospirenone (Slynd 4 mg oral tablet) 1 Tabs Oral DAILY Menorrhagia Refills: 3 Pickup at [facility]/pharmacy #[id number] Changed hydrOXYzine (hydrOXYzine hydrochloride 10 mg oral [...] sores Pharm[facility] Information [id number] [address], [place] [phone] Test Results AMB Urine POC 64108 (02/26/2024) U beta hCG Ql - Negative [...] signs, call to get immediate medical attention! 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, Pt states she had one about 15 yrs ago her cycles are back, she has cramping started getting clots again and 5 days period changing Q3-4 hrs/maxi QD Ivan Sanza 02/26/2024 11:57 EST Menstrual Status : Menarcheal [...] last year Ekta Sanz 02/26/2024 11:57 EST Normal [facility] OPERATIONS PROJECT MANAGER Visit - Texton OPERATIONS PROJECT MANAGER Visit - Text OPERATIONS PROJECT MANAGER Visit Entered On : 02/26/2024 12:03 EST Performed On: 02/26/2024 12:02 EST by Ekta Sanz OPERATIONS PROJECT MANAGER Menstrual History Menstrual Status : Menarcheal Ekta Sanz - 02/26/2024 12:02 EST OPERATIONS PROJECT MANAGER Screenings Date of Last Pap Smear : 12/06/2023 Last Pap Result : Negative Last Pap Result Comment : Neg HPV Date of Last Mammogram : Never Ekta Sanz - 02/26/2024 12:02 EST Contraception Contraception Method : Sterilization for contraception Sterilization Type : Tubal ligation Ekta Sanz - 02/26/2024 12:02 EST Normal [facility] EBV Acute Prof IgG / IgMon 0 12-10-2023 EB Ab VCA, IgG 143.0 U/mL High 0.0-17.9 [facility] Comment on above: Result Comment: Nega tive <18.0 Equivocal 18.0 - 21.9 Positive >21.9 Performed By: #### L 100.0100, L500.4050, L501.76281, L501.9520, L506.0400, L3100.5850 #### [facility] [address] [place], [place], [id number] EBV Ab VCA, IgM < 36.0 Normal 0.0-35.9 [facility] Comment on above: Result Comment: Nega tive <36.0 Equivocal 36.0 - 43.9 Positive >43.9 Performed By: #### L 100.0100, L500.4050, L501.31459, L501.9520, L506.0400, L3100.5850 #### [facility] [address] [place], [place], [id number] EBV NuAg Ab,IgG > 600.0 High 0.0-17.9 [facility] Comment on above: Result Comment: Nega tive <18.0 Equivocal 18.0 - 21.9 Positive >21.9 Performed By: #### L 100.0100, L500.4050, L501.71765, L501.9520, L506.0400, L3100.5850 #### [facility] [address] [place], [address] INTERPRETATION Comment Normal . [facility] Comment on above: Result Comment: EBV Interpretation Chart Gilbert: Antibody Present + Antibody Absent - Interpretation VCA-IgM VCA-IgG EBNA-IgG No previous infection/ - - - Susceptible Primary infection (new + + - or recent) Past Infection +or- + + See comment below* + - - *Results indicate infection with EBV at some time however cannot predict the timing of the infection since antibodies to EBNA usually develop after primary infection or, alternatively, approximately 5-10% of patients with EBV never develop antibodies to EBNA. Performed at: [address] [id number] Utility Specialist: Michael Arevalo PhD, Phone: [phone] Performed By: #### L 100.0100, L500.4050, L501.83762, L501.9520, L506.0400, L3100.5850 #### [facility] [address] [place], [address] Comprehensive Metabolic Prof [facility] 12-08-2023 Albumin [Mass/Vol] 4.0 g/dL Normal 3.2-5.0 [facility] Comment on above: Performed By: #### L 100.0100, L500.4050, L501.62486, L501.9520, L506.0400, L3100.5850 #### [facility] [address] [place], [address] Albumin/Globulin [Mass ratio] 1.2 {ratio} Normal 0.9-2.4 [facility] Comment on above: Performed By: #### L 100.0100, L500.4050, L501.34817, L501.9520, L506.0400, L3100.5850 #### [facility] [address] [place], [address] ALK P 70 U/L Normal 45-117 [facility] Comment on above: Performed By: #### L 100.0100, L500.4050, L501.73309, L501.9520, L506.0400, L3100.5850 #### [facility] [address] [place], [address] ALT [Catalytic activity/Vol] 36 U/L Normal 13-56 [facility] Comment on above: Performed By: #### L 100.0100, L500.4050, L501.20291, L501.9520, L506.0400, L3100.5850 #### [facility] [address] [place], [address] AST [Catalytic activity/Vol] 16 U/L Normal 15-37 [facility] Comment on above: Performed By: #### L 100.0100, L500.4050, L501.79473, L501.9520, L506.0400, L3100.5850 #### [facility] [address] [place], [address] Bilirubin [Mass/Vol] 0.30 mg/dL Normal 0.20-1.00 [facility] Comment on above: Result Comment: For patients on eltrombopag therapy, use of Dimension [place] TBIL is not recommended. Performed By: #### L 100.0100, L500.4050, L501.25115, L501.9520, L506.0400, L3100.5850 #### [facility] [address] [place], [address] BUN/CRE 12.4 RATIO Normal 10-20 [facility] Comment on above: Performed By: #### L 100.0100, L500.4050, L501.67214, L501.9520, L506.0400, L3100.5850 #### [facility] [address] [place], [address] CA,Total 10.3 mg/dL High 8.5-10.1 [facility] Comment on above: Performed By: #### L 100.0100, L500.4050, L501.71453, L501.9520, L506.0400, L3100.5850 #### [facility] [address] [place], [address] Chloride [Moles/Vol] 103 mmol/L Normal 98-107 [facility] Comment on above: Performed By: #### L 100.0100, L500.4050, L501.68891, L501.9520, L506.0400, L3100.5850 #### [facility] [address] [place], [address] CO2 [Moles/Vol] 30.0 mmol/L Normal 21.0-32.0 [facility] Comment on above: Performed By: #### L 100.0100, L500.4050, L501.89723, L501.9520, L506.0400, L3100.5850 #### [facility] [address] [place], [address] Creatinine [Mass/Vol] 0.89 mg/dL Normal 0.55-1.02 [facility] Comment on above: Result Comment: The validity of the calculated GFR GFRAA in patients over 70 years has not been determined. Clinical correlation is essential. Performed By: #### L 100.0100, L500.4050, L501.49429, L501.9520, L506.0400, L3100.5850 #### [facility] [address] [place], [address] EST GFR - AA 88 mL/min Normal >60 [facility] Comment on above: Result Comment: Afri can Danish GFR Calc Performed By: #### L 100.0100, L500.4050, L501.94626, L501.9520, L506.0400, L3100.5850 #### [facility] [address] [place], [address] GAP 4 Low 5-15 [facility] Comment on above: Performed By: #### L 100.0100, L500.4050, L501.47367, L501.9520, L506.0400, L3100.5850 #### [facility] [address] [place], [address] GFR/1.73 sq M.predicted among non-blacks MDRD (S/P/Bld) [Vol rate/Area] 73 mL/min/{1.73_m2} Normal >60 [facility] Comment on above: Result Comment: Non- GFR Calc Performed By: #### L 100.0100, L500.4050, L501.96409, L501.9520, L506.0400, L3100.5850 #### [facility] [address] [place], [address] Globulin (S) [Mass/Vol] 3.4 g/dL Normal 2.2-4.2 [facility] Comment on above: Performed By: #### L 100.0100, L500.4050, L501.22365, L501.9520, L506.0400, L3100.5850 #### [facility] [address] [place], [address] Glucose [Mass/Vol] 84 mg/dL Normal 74-106 [facility] Comment on above: Performed By: #### L 100.0100, L500.4050, L501.68524, L501.9520, L506.0400, L3100.5850 #### [facility] [address] [place], [address] Potassium [Moles/Vol] 4.2 mmol/L Normal 3.5-5.1 [facility] Comment on above: Performed By: #### L 100.0100, L500.4050, L501.16106, L501.9520, L506.0400, L3100.5850 #### [facility] [address] [place], [address] Sodium [Moles/Vol] 137 mmol/L Normal 136-145 [facility] Comment on above: Performed By: #### L 100.0100, L500.4050, L501.05469, L501.9520, L506.0400, L3100.5850 #### [facility] [address] [place], [address] T PROT 7.4 g/dL Normal 6.4-8.2 [facility] Comment on above: Performed By: #### L 100.0100, L500.4050, L501.95788, L501.9520, L506.0400, L3100.5850 #### [facility] [address] [place], [address] Urea nitrogen [Mass/Vol] 11 mg/dL Normal 7-18 [facility] Comment on above: Performed By: #### L 100.0100, L500.4050, L501.40462, L501.9520, L506.0400, L3100.5850 #### [facility] [address] [place], [address] Free T3on 12-08-2023 Free T3 [Mass/Vol] 2.7 pg/mL Normal 2.18-3.98 [facility] Comment on above: Performed By: #### L 100.0100, L500.4050, L501.58622, L501.9520, L506.0400, L3100.5850 #### [facility] [address] [place], [address] T4 Free Directon 12-08-2023 T4 FREE DIRECT 1.05 ng/dL Normal 0.76-1.46 [facility] Comment on above: Performed By: #### L 100.0100, L500.4050, L501.18825, L501.9520, L506.0400, L3100.5850 #### [facility] [address] [place], [address] Thyroid Stim Hormone (TSH)on 12-08-2023 TSH 1.100 uIU/mL Normal 0.358-3.740 [facility] Comment on above: Performed By: #### L 100.0100, L500.4050, L501.01868, L501.9520, L506.0400, L3100.5850 #### [facility] [address] [place], [address] CBC W/Diff, Automatedon 11-24 Absolute Lymph 4.34 X10 3/uL Normal 0.83-4.51 [facility] Comment on above: Performed By: #### L 100.0100, L500.4050, L501.78718, L501.9520, L506.0400, L3100.5850 #### [facility] [address] [place], [address] Absolute Neut 6.6 X10 3/uL Normal 2.0-7.7 [facility] Comment on above: Performed By: #### L 100.0100, L500.4050, L501.24965, L501.9520, L506.0400, L3100.5850 #### [facility] [address] [place], [address] Basophils/100 WBC (Bld) 0.5 % Normal 0-1 [facility] Comment on above: Performed By: #### L 100.0100, L500.4050, L501.80473, L501.9520, L506.0400, L3100.5850 #### [facility] [address] [place], [address] Eosinophils/100 WBC (Bld) 0.1 % Normal 0-5 [facility] Comment on above: Performed By: #### L 100.0100, L500.4050, L501.46406, L501.9520, L506.0400, L3100.5850 #### [facility] [address] [place], [address] Erythrocyte distribution width (RBC) [Ratio] 13.1 % Normal 11.6-14.6 [facility] Comment on above: Performed By: #### L 100.0100, L500.4050, L501.75996, L501.9520, L506.0400, L3100.5850 #### [facility] [address] [place], [address] Hematocrit (Bld) [Volume fraction] 44.3 % Normal 37-47 [facility] Comment on above: Performed By: #### L 100.0100, L500.4050, L501.18576, L501.9520, L506.0400, L3100.5850 #### [facility] [address] [place], [address] Hemoglobin (Bld) [Mass/Vol] 14.8 g/dL Normal 12.0-15.0 [facility] Comment on above: Performed By: #### L 100.0100, L500.4050, L501.52921, L501.9520, L506.0400, L3100.5850 #### [facility] [address] [place], [address] IG% 0.200 Normal 0.0-0.9 [facility] Comment on above: Result Comment: IG% - Immature Granulocytes (promyelocytes, myelocytes and metamyelocytes) > 1% indicates that a LEFT SHIFT is Present. Performed By: #### L 100.0100, L500.4050, L501.07510, L501.9520, L506.0400, L3100.5850 #### [facility] [address] [place], [address] Lymphocytes/100 WBC (Bld) 36.5 % Normal 19-41 [facility] Comment on above: Performed By: #### L 100.0100, L500.4050, L501.37699, L501.9520, L506.0400, L3100.5850 #### [facility] [address] [place], [address] MCH (RBC) [Entitic mass] 30.5 pg Normal 27.0-32.0 [facility] Comment on above: Performed By: #### L 100.0100, L500.4050, L501.47501, L501.9520, L506.0400, L3100.5850 #### [facility] [address] [place], [address] MCHC (RBC) [Mass/Vol] 33.4 g/dL Normal 32-36 [facility] Comment on above: Performed By: #### L 100.0100, L500.4050, L501.33936, L501.9520, L506.0400, L3100.5850 #### [facility] [address] [place], [address] MCV (RBC) [Entitic vol] 91.2 fL Normal 81-99 [facility] Comment on above: Performed By: #### L 100.0100, L500.4050, L501.52340, L501.9520, L506.0400, L3100.5850 #### [facility] [address] [place], [address] Monocytes/100 WBC (Bld) 7.2 % Normal 0-10 [facility] Comment on above: Performed By: #### L 100.0100, L500.4050, L501.49026, L501.9520, L506.0400, L3100.5850 #### [facility] [address] [place], [address] Neutrophils/100 WBC (Bld) 55.5 % Normal 47-70 [facility] Comment on above: Performed By: #### L 100.0100, L500.4050, L501.58356, L501.9520, L506.0400, L3100.5850 #### [facility] [address] [place], [address] Nucleated RBC (Bld) [#/Vol] 0 10*3/uL Normal 0-5 [facility] Comment on above: Performed By: #### L 100.0100, L500.4050, L501.97330, L501.9520, L506.0400, L3100.5850 #### [facility] [address] [place], [address] Platelet mean volume (Bld) [Entitic vol] 10.1 fL Normal 6.2-12.0 [facility] Comment on above: Performed By: #### L 100.0100, L500.4050, L501.82429, L501.9520, L506.0400, L3100.5850 #### [facility] [address] [place], [address] Platelets (Bld) [#/Vol] 349 10*3/uL Normal 150-450 [facility] Comment on above: Performed By: #### L 100.0100, L500.4050, L501.44574, L501.9520, L506.0400, L3100.5850 #### [facility] [address] [place], [address] RBC (Bld) [#/Vol] 4.86 10*6/uL Normal 4.2-5.4 [facility] Comment on above: Performed By: #### L 100.0100, L500.4050, L501.84736, L501.9520, L506.0400, L3100.5850 #### [facility] [address] [place], [address] RDW SD 43.7 fl Normal 35.1-43.9 [facility] Comment on above: Performed By: #### L 100.0100, L500.4050, L501.60512, L501.9520, L506.0400, L3100.5850 #### [facility] [address] [place], [address] WBC (Bld) [#/Vol] 11.9 10*3/uL High 4.4-11.0 [facility] Comment on above: Performed By: #### L 100.0100, L500.4050, L501.22581, L501.9520, L506.0400, L3100.5850 #### [facility] [address] [place], [address] Cervical AND or Vaginal cyto logy studyon 12-06-2023 Cytology Cervical or vaginal smear or scraping study Pathology report.total SEE COMMENT Gynecologic Cytology Case: [id number] Authorizing Provider: Joanie Franco MD Collected: 12/06/20231228 Ordering Location: [facility] & Received: 12/06/2023 1229 Internal Medicine/Peds First Screen: ASHKAN Caban Specimen: ThinPrep Liquid-Based Pap-Imaging System Screen, CERVIX, SCREENING Cytology study comment SEE COMMENT A. THINPREP PAP CERVIX, SCREENING - Specimen Adequacy Satisfactory for evaluation; endocervical/transform ation zone component is present Quality Indicator: Partially obscuring blood General Categorization Negative for intraepithelial lesion or malignancy. Descriptive Interpretation Negative for intraepithelial lesion or malignancy Specimen does not meet the requisition-stated criteria for HPV testing. See Pap test interpretation above. Laboratory comment SEE COMMENT Slide(s) initially screened by ASHKAN Caban at [address] [id number] By the signature on this report, the individual or group listed as making the Final Interpretation/Diagnos is certifies that they have reviewed this case. This specimen has been analyzed by the See[employer] Imaging System ([employer] an automated imaging and review system, which assists the laboratory in evaluating cells on ThinPrep Pap tests. Following automated imaging, selected rios from every slide were reviewed by a emergency medicine physician and/or pathologist. Cervical cytology is a screening procedure primarily for squamous cancers and precursors and has associated false-negative and false-positives results as evidenced by published data. Your patient's test should be interpreted in this context, together with the patient's history and clinical findings. Regular sampling and follow-up of unexplained clinical signs and symptoms are recommended to minimize false negative results. LAB AP HPV HR Reflex if ASCUS only LAB AP HPV GENOTYPE QUESTION Yes Normal [facility] EBV Acute Prof IgG / IgMon 0 - EB Ab VCA, IgG 135.0 U/mL High 0.0-17.9 [facility] Comment on above: Result Comment: Nega tive <18.0 Equivocal 18.0 - 21.9 Positive >21.9 Performed By: #### L 100.0100, L500.4050, L501.38788, L501.9520, L506.0400, L3100.5850 #### [facility] [address] [facility] [place], [address] (406) EBV Ab VCA, IgM < 36.0 Normal 0.0-35.9 [facility] Comment on above: Result Comment: Nega tive <36.0 Equivocal 36.0 - 43.9 Positive >43.9 Performed By: #### L 100.0100, L500.4050, L501.26985, L501.9520, L506.0400, L3100.5850 #### [facility] [address] [place], [address] EBV NuAg Ab,IgG > 600.0 High 0.0-17.9 [facility] Comment on above: Result Comment: Nega tive <18.0 Equivocal 18.0 - 21.9 Positive >21.9 Performed By: #### L 100.0100, L500.4050, L501.53122, L501.9520, L506.0400, L3100.5850 #### [facility] [address] [place], [place], [address] INTERPRETATION Comment Normal . [facility] Comment on above: Result Comment: EBV Interpretation Chart Gilbert: Antibody Present + Antibody Absent - Interpretation VCA-IgM VCA-IgG EBNA-IgG No previous infection/ - - - Susceptible Primary infection (new + + - or recent) Past Infection +or- + + See comment below* + - - *Results indicate infection with EBV at some time however cannot predict the timing of the infection since antibodies to EBNA usually develop after primary infection or, alternatively, approximately 5-10% of patients with EBV never develop antibodies to EBNA. Performed at: [facility] [employer] [id number] Utility Specialist: Michael Arevalo PhD, Phone: [phone] Performed By: #### L 100.0100, L500.4050, L501.02238, L501.9520, L506.0400, L3100.5850 #### [facility] [address] [place], [address] Thyroid Stim Hormone (TSH)on 10-12-2023 TSH 0.66 uIU/mL Normal 0.358-3.74 [facility] Comment on above: Performed By: #### L 100.0100, L500.4050, L501.43059, L501.9520, L506.0400, L3100.5850 #### [facility] [address] [place], [place], [id number] EBV Acute Prof IgG / IgMon 0 08-24-2023 EB Ab VCA, IgG 144.0 U/mL High 0.0-17.9 [facility] Comment on above: Result Comment: Nega tive <18.0 Equivocal 18.0 - 21.9 Positive >21.9 Performed By: #### L 100.0100, L500.4050, L501.71155, L501.9520, L506.0400, L3100.5850 #### [facility] [address] [facility] [place], [address] EBV Ab VCA, IgM < 36.0 Normal 0.0-35.9 [facility] Comment on above: Result Comment: Nega tive <36.0 Equivocal 36.0 - 43.9 Positive >43.9 Performed By: #### L 100.0100, L500.4050, L501.39645, L501.9520, L506.0400, L3100.5850 #### [facility] [address] [facility] [place], [address] EBV NuAg Ab,IgG > 600.0 High 0.0-17.9 [facility] Comment on above: Result Comment: Nega tive <18.0 Equivocal 18.0 - 21.9 Positive >21.9 Performed By: #### L 100.0100, L500.4050, L501.50469, L501.9520, L506.0400, L3100.5850 #### [facility] [address] [facility] [place], [address] INTERPRETATION Comment Normal . [facility] Comment on above: Result Comment: EBV Interpretation Chart Gilbert: Antibody Present + Antibody Absent - Interpretation VCA-IgM VCA-IgG EBNA-IgG No previous infection/ - - - Susceptible Primary infection (new + + - or recent) Past Infection +or- + + See comment below* + - - *Results indicate infection with EBV at some time however cannot predict the timing of the infection since antibodies to EBNA usually develop after primary infection or, alternatively, approximately 5-10% of patients with EBV never develop antibodies to EBNA. Performed at: [address] [id number] Utility Specialist: Michael Arevalo PhD, Phone: [phone] Performed By: #### L 100.0100, L500.4050, L501.58600, L501.9520, L506.0400, L3100.5850 #### [facility] [address] [place], [address] CBC W/Diff, Automatedon 05-2 Absolute Lymph 4.36 X10 3/uL Normal 0.83-4.51 [facility] Comment on above: Performed By: #### L 509.6000, L100.0100, L500.4050, L500.4100, L501.9520, L501.9985, L3100.5850 #### [facility] [address] [place], [address] Absolute Neut 12.1 X10 3/uL High 2.0-7.7 [facility] Comment on above: Performed By: #### L 509.6000, L100.0100, L500.4050, L500.4100, L501.9520, L501.9985, L3100.5850 #### [facility] [address] [place], [address] Basophils/100 WBC (Bld) 0.4 % Normal 0-1 [facility] Comment on above: Performed By: #### L 509.6000, L100.0100, L500.4050, L500.4100, L501.9520, L501.9985, L3100.5850 #### [facility] [address] [place], [address] Eosinophils/100 WBC (Bld) 0.1 % Normal 0-5 [facility] Comment on above: Performed By: #### L 509.6000, L100.0100, L500.4050, L500.4100, L501.9520, L501.9985, L3100.5850 #### [facility] [address] [place], [address] Erythrocyte distribution width (RBC) [Ratio] 13.6 % Normal 11.6-14.6 [facility] Comment on above: Performed By: #### L 509.6000, L100.0100, L500.4050, L500.4100, L501.9520, L501.9985, L3100.5850 #### [facility] [address] [place], [address] Hematocrit (Bld) [Volume fraction] 49.4 % High 37-47 [facility] Comment on above: Performed By: #### L 509.6000, L100.0100, L500.4050, L500.4100, L501.9520, L501.9985, L3100.5850 #### [facility] [address] [place], [address] Hemoglobin (Bld) [Mass/Vol] 16.3 g/dL High 12.0-15.0 [facility] Comment on above: Performed By: #### L 509.6000, L100.0100, L500.4050, L500.4100, L501.9520, L501.9985, L3100.5850 #### [facility] [address] [place], [address] IG% 0.600 Normal 0.0-0.9 [facility] Comment on above: Result Comment: IG% - Immature Granulocytes (promyelocytes, myelocytes and metamyelocytes) > 1% indicates that a LEFT SHIFT is Present. Performed By: #### L 509.6000, L100.0100, L500.4050, L500.4100, L501.9520, L501.9985, L3100.5850 #### [facility] [address] [place], [address] Lymphocytes/100 WBC (Bld) 24.5 % Normal 19-41 [facility] Comment on above: Performed By: #### L 509.6000, L100.0100, L500.4050, L500.4100, L501.9520, L501.9985, L3100.5850 #### [facility] [address] [place], [address] MCH (RBC) [Entitic mass] 30.0 pg Normal 27.0-32.0 [facility] Comment on above: Performed By: #### L 509.6000, L100.0100, L500.4050, L500.4100, L501.9520, L501.9985, L3100.5850 #### [facility] [address] [place], [address] MCHC (RBC) [Mass/Vol] 33.0 g/dL Normal 32-36 [facility] Comment on above: Performed By: #### L 509.6000, L100.0100, L500.4050, L500.4100, L501.9520, L501.9985, L3100.5850 #### [facility] [address] [place], [address] MCV (RBC) [Entitic vol] 90.8 fL Normal 81-99 [facility] Comment on above: Performed By: #### L 509.6000, L100.0100, L500.4050, L500.4100, L501.9520, L501.9985, L3100.5850 #### [facility] [address] [facility] [place], [address] Monocytes/100 WBC (Bld) 6.1 % Normal 0-10 [facility] Comment on above: Performed By: #### L 509.6000, L100.0100, L500.4050, L500.4100, L501.9520, L501.9985, L3100.5850 #### [facility] [address] [place], [address] Neutrophils/100 WBC (Bld) 68.3 % Normal 47-70 [facility] Comment on above: Performed By: #### L 509.6000, L100.0100, L500.4050, L500.4100, L501.9520, L501.9985, L3100.5850 #### [facility] [address] [place], [address] Nucleated RBC (Bld) [#/Vol] 0 10*3/uL Normal 0-5 [facility] Comment on above: Performed By: #### L 509.6000, L100.0100, L500.4050, L500.4100, L501.9520, L501.9985, L3100.5850 #### [facility] [address] [place], [address] Platelet mean volume (Bld) [Entitic vol] 9.6 fL Normal 6.2-12.0 [facility] Comment on above: Performed By: #### L 509.6000, L100.0100, L500.4050, L500.4100, L501.9520, L501.9985, L3100.5850 #### [facility] [address] [place], [address] Platelets (Bld) [#/Vol] 355 10*3/uL Normal 150-450 [facility] Comment on above: Performed By: #### L 509.6000, L100.0100, L500.4050, L500.4100, L501.9520, L501.9985, L3100.5850 #### [facility] [address] [place], [address] RBC (Bld) [#/Vol] 5.44 10*6/uL High 4.2-5.4 [facility] Comment on above: Performed By: #### L 509.6000, L100.0100, L500.4050, L500.4100, L501.9520, L501.9985, L3100.5850 #### [facility] [address] [place], [address] RDW SD 45.3 fl High 35.1-43.9 [facility] Comment on above: Performed By: #### L 509.6000, L100.0100, L500.4050, L500.4100, L501.9520, L501.9985, L3100.5850 #### [facility] [address] [place], [address] WBC (Bld) [#/Vol] 17.8 10*3/uL High 4.4-11.0 [facility] Comment on above: Performed By: #### L 509.6000, L100.0100, L500.4050, L500.4100, L501.9520, L501.9985, L3100.5850 #### [facility] [address] [place], [place], [id number] CORTISOL SERUMon 08-22-2023 CORTISOL 6.70 ug/dL Normal 3.44-22.45 [facility] Comment on above: Result Comment: Adul t (AM) 5.27 - 22.45 ug/dL Adult (PM) 3.44 - 16.76 ug/dL Please note revised CORTISOL reference range effective 2019. Performed By: #### L 509.6000, L100.0100, L500.4050, L500.4100, L501.9520, L501.9985, L3100.5850 #### [facility] [address] [place], [place], [id number] Comprehensive Metabolic Prof ilon 08-22-2023 Albumin [Mass/Vol] 4.3 g/dL Normal 3.2-5.0 [facility] Comment on above: Performed By: #### L 509.6000, L100.0100, L500.4050, L500.4100, L501.9520, L501.9985, L3100.5850 #### [facility] [address] [place], [address] Albumin/Globulin [Mass ratio] 1.1 {ratio} Normal 0.9-2.4 [facility] Comment on above: Performed By: #### L 509.6000, L100.0100, L500.4050, L500.4100, L501.9520, L501.9985, L3100.5850 #### [facility] [address] [place], [address] ALK P 76 U/L Normal 45-117 [facility] Comment on above: Performed By: #### L 509.6000, L100.0100, L500.4050, L500.4100, L501.9520, L501.9985, L3100.5850 #### [facility] [address] [place], [address] ALT [Catalytic activity/Vol] 32 U/L Normal 13-56 [facility] Comment on above: Performed By: #### L 509.6000, L100.0100, L500.4050, L500.4100, L501.9520, L501.9985, L3100.5850 #### [facility] [address] [place], [address] AST [Catalytic activity/Vol] 18 U/L Normal 15-37 [facility] Comment on above: Performed By: #### L 509.6000, L100.0100, L500.4050, L500.4100, L501.9520, L501.9985, L3100.5850 #### [facility] [address] [place], [address] Bilirubin [Mass/Vol] 0.50 mg/dL Normal 0.20-1.00 [facility] Comment on above: Result Comment: For patients on eltrombopag therapy, use of Dimension [place] TBIL is not recommended. Performed By: #### L 509.6000, L100.0100, L500.4050, L500.4100, L501.9520, L501.9985, L3100.5850 #### [facility] [address] [place], [address] BUN/CRE 8.7 RATIO Low 10-20 [facility] Comment on above: Performed By: #### L 509.6000, L100.0100, L500.4050, L500.4100, L501.9520, L501.9985, L3100.5850 #### [facility] [address] [place], [address] CA,Total 10.3 mg/dL High 8.5-10.1 [facility] Comment on above: Performed By: #### L 509.6000, L100.0100, L500.4050, L500.4100, L501.9520, L501.9985, L3100.5850 #### [facility] [address] [place], [address] Chloride [Moles/Vol] 104 mmol/L Normal 98-107 [facility] Comment on above: Performed By: #### L 509.6000, L100.0100, L500.4050, L500.4100, L501.9520, L501.9985, L3100.5850 #### [facility] [address] [place], [address] CO2 [Moles/Vol] 25.0 mmol/L Normal 21.0-32.0 [facility] Comment on above: Performed By: #### L 509.6000, L100.0100, L500.4050, L500.4100, L501.9520, L501.9985, L3100.5850 #### [facility] [address] [place], [address] Creatinine [Mass/Vol] 1.04 mg/dL High 0.55-1.02 [facility] Comment on above: Result Comment: The validity of the calculated GFR GFRAA in patients over 70 years has not been determined. Clinical correlation is essential. Performed By: #### L 509.6000, L100.0100, L500.4050, L500.4100, L501.9520, L501.9985, L3100.5850 #### [facility] [address] [place], [address] EST GFR - AA 74 mL/min Normal >60 [facility] Comment on above: Result Comment: Afri can Danish GFR Calc Performed By: #### L 509.6000, L100.0100, L500.4050, L500.4100, L501.9520, L501.9985, L3100.5850 #### [facility] [address] [place], [address] GAP 10 Normal 5-15 [facility] Comment on above: Performed By: #### L 509.6000, L100.0100, L500.4050, L500.4100, L501.9520, L501.9985, L3100.5850 #### [facility] [address] [place], [address] GFR/1.73 sq M.predicted among non-blacks MDRD (S/P/Bld) [Vol rate/Area] 61 mL/min/{1.73_m2} Normal >60 [facility] Comment on above: Result Comment: Non- GFR Calc Performed By: #### L 509.6000, L100.0100, L500.4050, L500.4100, L501.9520, L501.9985, L3100.5850 #### [facility] [address] [place], [address] Globulin (S) [Mass/Vol] 4.0 g/dL Normal 2.2-4.2 [facility] Comment on above: Performed By: #### L 509.6000, L100.0100, L500.4050, L500.4100, L501.9520, L501.9985, L3100.5850 #### [facility] [address] [place], [address] Glucose [Mass/Vol] 67 mg/dL Low 74-106 [facility] Comment on above: Performed By: #### L 509.6000, L100.0100, L500.4050, L500.4100, L501.9520, L501.9985, L3100.5850 #### [facility] [address] [place], [address] Potassium [Moles/Vol] 3.5 mmol/L Normal 3.5-5.1 [facility] Comment on above: Performed By: #### L 509.6000, L100.0100, L500.4050, L500.4100, L501.9520, L501.9985, L3100.5850 #### [facility] [address] [place], [address] Sodium [Moles/Vol] 139 mmol/L Normal 136-145 [facility] Comment on above: Performed By: #### L 509.6000, L100.0100, L500.4050, L500.4100, L501.9520, L501.9985, L3100.5850 #### [facility] [address] [place], [address] T PROT 8.3 g/dL High 6.4-8.2 [facility] Comment on above: Performed By: #### L 509.6000, L100.0100, L500.4050, L500.4100, L501.9520, L501.9985, L3100.5850 #### [facility] [address] [place], [address] Urea nitrogen [Mass/Vol] 9 mg/dL Normal 7-18 [facility] Comment on above: Performed By: #### L 509.6000, L100.0100, L500.4050, L500.4100, L501.9520, L501.9985, L3100.5850 #### [facility] [address] [place], [address] Hemoglobin A1con 08-22-2023 HbA1c (Bld) [Mass fraction] 5.4 % Normal 3.8-5.6 [facility] Comment on above: Result Comment: Norm al < 5.7 % Prediabetic 5.7 - 6.4 % Diabetic >or= 6.5 % Please note range changes. Performed By: #### L 100.0100, L500.4050, L501.72249, L501.9520, L506.0400, L3100.5850 #### [facility] [address] [place], [address] Lipid Profileon 08-22-2023 Cholesterol [Mass/Vol] 253 mg/dL High 200 [facility] Comment on above: Result Comment: <200 mg/dL Desirable 200-240 mg/dL Borderline >240 mg/dL High Risk Performed By: #### L 509.6000, L100.0100, L500.4050, L500.4100, L501.9520, L501.9985, L3100.5850 #### [facility] [address] [place], [address] Cholesterol in HDL [Mass/Vol] 56 mg/dL Normal [facility] Comment on above: Result Comment: The drugs N-Acetylcysteine and Metamizole may falsely depress this assay. Reference Range HDL <40 mg/dL Low HDL Cholesterol HDL >or= 60 mg/dL High HDL Cholesterol Performed By: #### L 509.6000, L100.0100, L500.4050, L500.4100, L501.9520, L501.9985, L3100.5850 #### [facility] [address] [place], [address] Cholesterol in LDL [Mass/Vol] 153 mg/dL High 0-130 [facility] Comment on above: Performed By: #### L 509.6000, L100.0100, L500.4050, L500.4100, L501.9520, L501.9985, L3100.5850 #### [facility] [address] [place], [place], [id number] Cholesterol in VLDL [Mass/Vol] 44 mg/dL High 5-40 [facility] Comment on above: Performed By: #### L 509.6000, L100.0100, L500.4050, L500.4100, L501.9520, L501.9985, L3100.5850 #### [facility] [address] [place], [address] Triglyceride [Mass/Vol] 218 mg/dL High [facility] Comment on above: Result Comment: The drugs N-Acetylcysteine and Metamizole may falsely depress this assay. Serum Triglycerides Reference Interval Normal <150 mg/dL Borderline high 150 - 199 mg/dL High 200 - 499 mg/dL Very High > or = 500 mg/dL Performed By: #### L 509.6000, L100.0100, L500.4050, L500.4100, L501.9520, L501.9985, L3100.5850 #### [facility] [address] [place], [place], [id number] Thyroid Stim Hormone (TSH)on 08-22-2023 TSH 4.38 uIU/mL High 0.358-3.74 [facility] Comment on above: Performed By: #### L 100.0100, L500.4050, L501.73284, L501.9520, L506.0400, L3100.5850 #### [facility] [address] [place], [place], [id number] Amphetamineon 08-13-2023 Amphetamine (U) [Mass/Vol] 1159 ng/mL Normal [facility] Comment on above: Result Comment: INTE RPRETIVE INFORMATION: Amphetamines, Urine, Quantitative Methodology: Quantitative Liquid Chromatography-Tandem Mass Spectrometry Positive cutoff: 200 ng/mL unless specified below: Amphetamine 50 ng/mL For medical purposes only; not valid for forensic use. The absence of expected drug(s) and/or drug metabolite(s) may indicate non-compliance, inappropriate timing of specimen collection relative to drug administration, poor drug absorption, diluted/adulterated urine, or limitations of testing. The concentration value must be greater than or equal to the cutoff to be reported as positive. Interpretive questions should be directed to the laboratory. This test was developed and its performance characteristics determined by [facility]. It has not been cleared or approved by the [place] Food and Drug Administration. This test was performed in a CLIA certified laboratory and is intended for clinical purposes. Performed By: #### 1 9346-6 #### [facility] ([employer]) ([id number]) [address] [place] [address] Amphetamine (U) [Mass/Vol]on 08-13-2023 Methamphetamine (U) [Mass/Vol] ug/mL [facility] Comment on above: Performed By: #### 1 9346-6 #### [facility] ([employer]) ([id number]) [address] [place] [address] Methylenedioxyamphetamine (U) [Mass/Vol] <200 [facility] Comment on above: Performed By: #### 1 9346-6 #### [facility] ([employer]) ([id number]) [address] [place] [address] Methylenedioxyethylamphet amine (U) [Mass/Vol] <200 [facility] Comment on above: Performed By: #### 1 9346-6 #### [facility] ([employer]) ([id number]) [address] [place] [address] Methylenedioxymethampheta mine (U) [Mass/Vol] <200 Normal [facility] Comment on above: Performed By: #### 1 9346-6 #### [facility] ([employer]) ([id number]) [address] [place] [address] Phentermine Confirm (U) [Mass/Vol] <200 [facility] Comment on above: Result Comment: Perf ormed By: [facility] [address] [place] [address] Wholesale Manager: Caden Pruitt MD, PhD CLIA Number: [id number] Performed By: #### 1 9346-6 #### [facility] ([employer]) ([id number]) [address] [place] [address] Drugs of abuse screen W Refl ex confirm panel (U)on 08-13-2023 Amphetamines Screen Ql (U) Positive Abnormal Presumptive Negative [facility] Comment on above: Order Comment: Drug screen results are presumptive and should not be used to assess compliance with prescribed medication. Definitive confirmatory drug testing has been added to this sample for any positive screen result and will be reported separately. Toxicology screening results are reported qualitatively. The concentration must be greater than or equal to the cutoff to be reported as positive. The concentration at which the screening test can detect an individual drug or metabolite varies. The absence of expected drug(s) and/or drug metabolite(s) may indicate non-compliance, inappropriate timing of specimen collection relative to drug administration, poor drug absorption, diluted/adulterated urine, or limitations of testing. For medical purposes only; not valid for forensic use. Interpretive questions should be directed to the laboratory medical directors. Result Comment: CUTO FF LEVEL: 500 NG/ML Cross-reactivity has been reported with high concentrations of the following drugs: buproprion, chloroquine, chlorpromazine, ephedrine, mephentermine, fenfluramine, phentermine, phenylpropanolamine, pseudoephedrine, and propranolol. Performed By: #### 8 7428-9 #### [facility]ST[facility] Medina ([id number]) [facility] ([facility]) [address] [place] [address] Barbiturates Screen Ql (U) Negative Normal Presumptive Negative [facility] Comment on above: Order Comment: Drug screen results are presumptive and should not be used to assess compliance with prescribed medication. Definitive confirmatory drug testing has been added to this sample for any positive screen result and will be reported separately. Toxicology screening results are reported qualitatively. The concentration must be greater than or equal to the cutoff to be reported as positive. The concentration at which the screening test can detect an individual drug or metabolite varies. The absence of expected drug(s) and/or drug metabolite(s) may indicate non-compliance, inappropriate timing of specimen collection relative to drug administration, poor drug absorption, diluted/adulterated urine, or limitations of testing. For medical purposes only; not valid for forensic use. Interpretive questions should be directed to the laboratory medical directors. Result Comment: CUTO FF LEVEL: 200 NG/ML Performed By: #### 8 7428-9 #### CONSTANCE BAINSTZER L ([id number]) [facility] ([facility]) [address] [place] [address] Benzodiazepines Ql (U) Negative Normal Presu mptive Negative [facility] Comment on above: Order Comment: Drug screen results are presumptive and should not be used to assess compliance with prescribed medication. Definitive confirmatory drug testing has been added to this sample for any positive screen result and will be reported separately. Toxicology screening results are reported qualitatively. The concentration must be greater than or equal to the cutoff to be reported as positive. The concentration at which the screening test can detect an individual drug or metabolite varies. The absence of expected drug(s) and/or drug metabolite(s) may indicate non-compliance, inappropriate timing of specimen collection relative to drug administration, poor drug absorption, diluted/adulterated urine, or limitations of testing. For medical purposes only; not valid for forensic use. Interpretive questions should be directed to the laboratory medical directors. Result Comment: CUTO FF LEVEL: 200 NG/ML Performed By: #### 8 7428-9 #### CONSTANCE SCHMOTZER L ([id number]) [facility] ([facility]) [address] [place] [address] Benzoylecgonine Screen Ql (U) Negative Normal Presumptive Negative [facility] Comment on above: Order Comment: Drug screen results are presumptive and should not be used to assess compliance with prescribed medication. Definitive confirmatory drug testing has been added to this sample for any positive screen result and will be reported separately. Toxicology screening results are reported qualitatively. The concentration must be greater than or equal to the cutoff to be reported as positive. The concentration at which the screening test can detect an individual drug or metabolite varies. The absence of expected drug(s) and/or drug metabolite(s) may indicate non-compliance, inappropriate timing of specimen collection relative to drug administration, poor drug absorption, diluted/adulterated urine, or limitations of testing. For medical purposes only; not valid for forensic use. Interpretive questions should be directed to the laboratory medical directors. Result Comment: CUTO FF LEVEL: 150 NG/ML Performed By: #### 8 7428-9 #### CONSTANCE SCHMOTZER L ([id number]) [facility] ([facility]) [address] [place] [address] Cannabinoids Screen Ql (U) Negative Normal Presumptive Negative [facility] Comment on above: Order Comment: Drug screen results are presumptive and should not be used to assess compliance with prescribed medication. Definitive confirmatory drug testing has been added to this sample for any positive screen result and will be reported separately. Toxicology screening results are reported qualitatively. The concentration must be greater than or equal to the cutoff to be reported as positive. The concentration at which the screening test can detect an individual drug or metabolite varies. The absence of expected drug(s) and/or drug metabolite(s) may indicate non-compliance, inappropriate timing of specimen collection relative to drug administration, poor drug absorption, diluted/adulterated urine, or limitations of testing. For medical purposes only; not valid for forensic use. Interpretive questions should be directed to the laboratory medical directors. Result Comment: CUTO FF LEVEL: 50 NG/ML Performed By: #### 8 7428-9 #### [facility] Medina ([id number]) [facility] ([facility]) [address] [place] [address] fentaNYL+Norfentanyl Screen Ql (U) Negative Normal Presumptive Negative [facility] Comment on above: Order Comment: Drug screen results are presumptive and should not be used to assess compliance with prescribed medication. Definitive confirmatory drug testing has been added to this sample for any positive screen result and will be reported separately. Toxicology screening results are reported qualitatively. The concentration must be greater than or equal to the cutoff to be reported as positive. The concentration at which the screening test can detect an individual drug or metabolite varies. The absence of expected drug(s) and/or drug metabolite(s) may indicate non-compliance, inappropriate timing of specimen collection relative to drug administration, poor drug absorption, diluted/adulterated urine, or limitations of testing. For medical purposes only; not valid for forensic use. Interpretive questions should be directed to the laboratory medical directors. Result Comment: CUTO FF LEVEL: 5 NG/ML Performed By: #### 8 7428-9 #### CONSTANCE Medina ([id number]) [facility] ([facility]) [address] [place] [address] Methadone Screen Ql (U) Negative Normal Pres umptive Negative [facility] Comment on above: Order Comment: Drug screen results are presumptive and should not be used to assess compliance with prescribed medication. Definitive confirmatory drug testing has been added to this sample for any positive screen result and will be reported separately. Toxicology screening results are reported qualitatively. The concentration must be greater than or equal to the cutoff to be reported as positive. The concentration at which the screening test can detect an individual drug or metabolite varies. The absence of expected drug(s) and/or drug metabolite(s) may indicate non-compliance, inappropriate timing of specimen collection relative to drug administration, poor drug absorption, diluted/adulterated urine, or limitations of testing. For medical purposes only; not valid for forensic use. Interpretive questions should be directed to the laboratory medical directors. Result Comment: CUTO FF LEVEL: 150 NG/ML The metabolite [id number] (LAAM) is not detected by this method in concentrations that would be found in the urine of patients on LAAM therapy. Performed By: #### 8 7428-9 #### CONSTANCE Medina ([id number]) [facility] ([facility]) [address] [place] [address] Opiates Screen Ql (U) Negative Normal Presum ptive Negative [facility] Comment on above: Order Comment: Drug screen results are presumptive and should not be used to assess compliance with prescribed medication. Definitive confirmatory drug testing has been added to this sample for any positive screen result and will be reported separately. Toxicology screening results are reported qualitatively. The concentration must be greater than or equal to the cutoff to be reported as positive. The concentration at which the screening test can detect an individual drug or metabolite varies. The absence of expected drug(s) and/or drug metabolite(s) may indicate non-compliance, inappropriate timing of specimen collection relative to drug administration, poor drug absorption, diluted/adulterated urine, or limitations of testing. For medical purposes only; not valid for forensic use. Interpretive questions should be directed to the laboratory medical directors. Result Comment: CUTO FF LEVEL: 300 NG/ML The opiate screen does not detect fentanyl, meperidine, or tramadol. Oxycodone is not consistently detected (refer to Oxycodone Screen, Urine result). Performed By: #### 8 7428-9 #### CONSTANCE Medina ([id number]) [facility] ([facility]) [address] [place] [address] oxyCODONE+oxyMORphone Screen Ql (U) Negative Normal Presumptive Negative [facility] Comment on above: Order Comment: Drug screen results are presumptive and should not be used to assess compliance with prescribed medication. Definitive confirmatory drug testing has been added to this sample for any positive screen result and will be reported separately. Toxicology screening results are reported qualitatively. The concentration must be greater than or equal to the cutoff to be reported as positive. The concentration at which the screening test can detect an individual drug or metabolite varies. The absence of expected drug(s) and/or drug metabolite(s) may indicate non-compliance, inappropriate timing of specimen collection relative to drug administration, poor drug absorption, diluted/adulterated urine, or limitations of testing. For medical purposes only; not valid for forensic use. Interpretive questions should be directed to the laboratory medical directors. Result Comment: CUTO FF LEVEL: 100 NG/ML This test will accurately detect both oxycodone and oxymorphone. Performed By: #### 8 7428-9 #### CONST[facility] Medina ([id number]) [facility] ([facility]) [address] [place] [address] Phencyclidine Ql (U) Negative Normal Presump tive Negative [facility] Comment on above: Order Comment: Drug screen results are presumptive and should not be used to assess compliance with prescribed medication. Definitive confirmatory drug testing has been added to this sample for any positive screen result and will be reported separately. Toxicology screening results are reported qualitatively. The concentration must be greater than or equal to the cutoff to be reported as positive. The concentration at which the screening test can detect an individual drug or metabolite varies. The absence of expected drug(s) and/or drug metabolite(s) may indicate non-compliance, inappropriate timing of specimen collection relative to drug administration, poor drug absorption, diluted/adulterated urine, or limitations of testing. For medical purposes only; not valid for forensic use. Interpretive questions should be directed to the laboratory medical directors. Result Comment: CUTO FF LEVEL: 25 NG/ML Cross-reactivity has been reported with dextromethorphan. Performed By: #### 8 7428-9 #### CONSTANCE Medina ([id number]) [facility] ([facility]) [address] [place], [place] [id number] Basophil percentageOrdered B y: Varsha Beth on 05-18-2023 Bilirubin [Mass/Vol] 0.40 mg/dL 0.20-1.00 [facility] Comment on above: For patients on eltr ombopag therapy, use of Dimension [place] TBIL is not recommended. Chloride [Moles/Vol] 105 mmol/L 98-107 [facility] Cholesterol [Mass/Vol] 195 mg/dL <200 [facility] Comment on above: <200 mg/dL Desirable 200-240 mg/dL Borderline >240 mg/dL High Risk Glucose [Mass/Vol] 80 mg/dL 74-106 [facility] Potassium [Moles/Vol] 3.8 mmol/L 3.5-5.1 [facility] Protein [Mass/Vol] 7.8 g/dL 6.4-8.2 [facility] Sodium [Moles/Vol] 137 mmol/L 136-145 [facility] Triglyceride [Mass/Vol] 87 mg/dL <199 [facility] Comment on above: The drugs N-Acetylcy steine and Metamizole may falsely depress this assay.Serum Triglycerides Reference Interval Normal <150 mg/dL Borderline high 150 - 199 mg/dL High 200 - 499 mg/dL Very High > or = 500 mg/dL Laboratory - Chemistry and C hemistry - challengeOrdered By: Varsha Beth on 05-18-2023 Albumin/Globulin [Mass ratio] 1.2 {ratio} 0.9-2.4 [facility] ALP [Catalytic activity/Vol] 80 U/L 45-117 [facility] ALT [Catalytic activity/Vol] 33 U/L 13-56 [facility] Cholesterol in HDL [Mass/Vol] 58 mg/dL >40 [facility] Comment on above: The drugs N-Acetylcy steine and Metamizole may falsely depress this assay. Reference Range HDL <40 mg/dL Low HDL Cholesterol HDL >or= 60 mg/dL High HDL Cholesterol Cholesterol in LDL [Mass/Vol] 120 mg/dL 0-130 [facility] CO2 [Moles/Vol] 29.0 mmol/L 21.0-32.0 [facility] Globulin (S) [Mass/Vol] 3.6 g/dL 2.2-4.2 [facility] Urea nitrogen/Creatinine [Mass ratio] 7.9 mg/mg 10-20 [facility] No Panel InformationOrdered By: Varsha Beth on 05-18-2023 Estimated GFR (MDRD) Amer 89 mL/min >60 [facility] Comment on above: GFR Calc Estimated GFR (MDRD) Non-Af Amer 74 mL/min >60 [facility] Comment on above: Non- GFR Calc VLDL Cholesterol 17 mg/dL 5-40 [facility] Serum or plasma calcitriol m easurement (mass/volume)Ordered By: Varsha Beth on 05-18-2023 1,25-dihydroxyvitamin D3 [Mass/Vol] 45.3 pg/mL 24.8-81.5 [facility] Comment on above: Performed at: [address] [id number] Director: Amie Wilson MD, Phone: [phone] Serum or plasma calcium raven urement (mass/volume)Ordered By: Varsha Beth on 05-18-2023 Calcium [Mass/Vol] 10.4 mg/dL 8.5-10.1 [facility] Serum or plasma creatinine m easurement (mass/volume)Ordered By: Varsha Beth on 05-18-2023 Creatinine [Mass/Vol] 0.88 mg/dL 0.55-1.02 [facility] Comment on above: The validity of the calculated GFR & GFRAA in patients over 70 years has not been determined. Clinical correlation is essential. Serum or plasma thyroid stim ulating hormone (TSH) measurement (units/volume)Ordered By: Varsha Beth on 05-18-2023 TSH Qn 2.63 uIU/mL 0.358-3.74 [facility] Serum or plasma urea nitroge n measurement (mass/volume)Ordered By: Varsha Beth on 05-18-2023 Urea nitrogen [Mass/Vol] 7 mg/dL 7-18 [facility] Thin prep Papanicolaou smear with manual screeningOrdered By: Varsha Beth on 05-18-2023 Thin prep Papanicolaou smear with manual screening 4.2 g/dL 3.2-5.0 [facility] Thin prep Papanicolaou smear with manual screening 14 U/L 15-37 [facility] Thin prep Papanicolaou smear with manual screening 3 5-15 [facility] Thin prep Papanicolaou smear with manual screening 1.04 ng/dL 0.76-1.46 [facility] Absolute lymphocyte countOrd ered By: Varsha Beth on 02-09-2023 Lymphocytes Auto (Unsp spec) [#/Vol] 4.43 10*3/uL 0.83-4.51 [facility] Basophil percentageOrdered B y: Varsha Beth on 02-09-2023 Basophils/100 WBC (Bld) 0.5 % 0-1 [facility] Bilirubin [Mass/Vol] 0.20 mg/dL 0.20-1.00 [facility] Comment on above: For patients on eltr ombopag therapy, use of Dimension [place] TBIL is not recommended. Chloride [Moles/Vol] 107 mmol/L 98-107 [facility] Cholesterol [Mass/Vol] 195 mg/dL <200 [facility] Comment on above: <200 mg/dL Desirable 200-240 mg/dL Borderline >240 mg/dL High Risk Eosinophils/100 WBC (Bld) 0.6 % 0-5 [facility] Glucose [Mass/Vol] 97 mg/dL 74-106 [facility] Neutrophils (Bld) [#/Vol] 10.8 10*3/uL 2.0-7.7 [facility] Neutrophils/100 WBC (Bld) 65.6 % 47-70 [facility] Potassium [Moles/Vol] 4.2 mmol/L 3.5-5.1 [facility] Protein [Mass/Vol] 7.5 g/dL 6.4-8.2 [facility] Sodium [Moles/Vol] 139 mmol/L 136-145 [facility] Triglyceride [Mass/Vol] 127 mg/dL <199 [facility] Comment on above: The drugs N-Acetylcy steine and Metamizole may falsely depress this assay.Serum Triglycerides Reference Interval Normal <150 mg/dL Borderline high 150 - 199 mg/dL High 200 - 499 mg/dL Very High > or = 500 mg/dL WBC (Bld) [#/Vol] 16.4 10*3/uL 4.4-11.0 [facility] Blood erythrocytes count (nu mber/volume)Ordered By: Varsha Beth on 02-09-2023 RBC (Bld) [#/Vol] 4.65 10*6/uL 4.2-5.4 [facility] Blood hemoglobin measurement (mass/volume)Ordered By: Varsha Beth on 02-09-2023 Hemoglobin (Bld) [Mass/Vol] 14.4 g/dL 12.0-15.0 [facility] Blood lymphocytes/100 leukoc ytesOrdered By: Varsha Beth on 02-09-2023 Lymphocytes/100 WBC (Bld) 27.1 % 19-41 [facility] Blood monocytes/100 leukocyt esOrdered By: Varsha Beth on 02-09-2023 Monocytes/100 WBC (Bld) 5.6 % 0-10 [facility] Blood platelet mean volumeOr dered By: Varsha Beth on 02-09-2023 Platelet mean volume (Bld) [Entitic vol] 10.0 fL 6.2-12.0 [facility] Determination of erythrocyte mean corpuscular volume (MCV)Ordered By: Varsha Beth on 02-09-2023 MCV (RBC) [Entitic vol] 94.0 fL 81-99 [facility] Hematocrit Auto (Bld) [Volum e fraction]Ordered By: Varsha Beth on 02-09-2023 Hematocrit (Bld) [Volume fraction] 43.7 % 37-47 [facility] - Chemistry and C hemistry - challengeOrdered By: Varhsa Beth on 02-09-2023 ALP [Catalytic activity/Vol] 78 U/L 45-117 [facility] ALT [Catalytic activity/Vol] 45 U/L 13-56 [facility] CO2 [Moles/Vol] 28.0 mmol/L 21.0-32.0 [facility] Free T4 [Mass/Vol] 1.01 ng/dL 0.76-1.46 [facility] Globulin (S) [Mass/Vol] 3.7 g/dL 2.2-4.2 [facility] Urea nitrogen/Creatinine [Mass ratio] 15.0 mg/mg 10-20 [facility] - Hematology and Cell countsOrdered By: Varsha Beth on 02-09-2023 Erythrocyte distribution width (RBC) [Entitic vol] 47.7 fL 35.1-43.9 [facility] Erythrocyte distribution width (RBC) [Ratio] 14.0 % 11.6-14.6 [facility] Immature granulocytes/100 WBC (Bld) 0.600 % 0.0-0.9 [facility] Comment on above: IG% - Immature Granu locytes (promyelocytes, myelocytes and metamyelocytes) > 1% indicates that a LEFT SHIFT is Present. MCH (RBC) [Entitic mass] 31.0 pg 27.0-32.0 [facility] [facility] Nucleated RBC/100 WBC (Bld) [Ratio] 0 % 0-5 [facility] MCHC Auto (RBC) [Mass/Vol]Or dered By: Varsha Beth on 02-09-2023 MCHC (RBC) [Mass/Vol] 33.0 g/dL 32-36 [facility] No Panel InformationOrdered By: Varsha Beth on 02-09-2023 Estimated GFR (MDRD) Amer 91 mL/min >60 [facility] Comment on above: GFR Calc Estimated GFR (MDRD) Non-Af Amer 75 mL/min >60 [facility] Comment on above: Non- GFR Calc Thyroid Stimulating Hormone (TSH) 0.65 uIU/mL 0.358-3.74 [facility] Vitamin D 25-Hydroxy 31.2 ng/mL [facility] Comment on above: Vitamin D 25(OH) Sta tus Range Deficiency <20 ng/mL (50nmol/L) Insufficiency 20 - 30 ng/mL (50 - 75 nmol/L) Sufficiency 30 - 100 ng/mL (75 - 250 nmol/L) Toxicity >100 ng/mL (>250 nmol/L) Platelets bldOrdered By: Jaspal Beth on 02-09-2023 Platelets (Bld) [#/Vol] 376 10*3/uL 150-450 [facility] Serum or plasma albumin raven urement (mass/volume)Ordered By: Varsha Beth on 02-09-2023 Albumin [Mass/Vol] 3.8 g/dL 3.2-5.0 [facility] Serum or plasma albumin/glob ulin mass ratioOrdered By: Varsha Beth on 02-09-2023 Albumin/Globulin [Mass ratio] 1.0 {ratio} 0.9-2.4 [facility] Serum or plasma calcium raven urement (mass/volume)Ordered By: Varsha Beth on 02-09-2023 Calcium [Mass/Vol] 9.9 mg/dL 8.5-10.1 [facility] Serum or plasma cholesterol in HDL measurement (mass/volume)Ordered By: Varsha Beth on 02-09-2023 Cholesterol in HDL [Mass/Vol] 50 mg/dL >40 [facility] Comment on above: The drugs N-Acetylcy steine and Metamizole may falsely depress this assay. Reference Range HDL <40 mg/dL Low HDL Cholesterol HDL >or= 60 mg/dL High HDL Cholesterol Serum or plasma cholesterol in VLDL measurement (mass/volume)Ordered By: Varsha Beth on 02-09-2023 Cholesterol in VLDL [Mass/Vol] 25 mg/dL 5-40 [facility] Serum or plasma creatinine m easurement (mass/volume)Ordered By: Varsha Beth on 02-09-2023 Creatinine [Mass/Vol] 0.87 mg/dL 0.55-1.02 [facility] Comment on above: The validity of the calculated GFR & GFRAA in patients over 70 years has not been determined. Clinical correlation is essential. Serum or plasma low density lipoprotein (LDL) cholesterol measurement (mass/volume)Ordered By: Varsha Beth on 02-09-2023 Cholesterol in LDL [Mass/Vol] 120 mg/dL 0-130 [facility] Serum or plasma urea nitroge n measurement (mass/volume)Ordered By: Varsha Beth on 02-09-2023 Urea nitrogen [Mass/Vol] 13 mg/dL 7-18 [facility] Thin prep Papanicolaou smear with manual screeningOrdered By: Varsha Beth on 02-09-2023 Thin prep Papanicolaou smear with manual screening 19 U/L 15-37 [facility] Thin prep Papanicolaou smear with manual screening 4 5-15 [facility] Absolute lymphocyte countOrd ered By: Varsha Beth on 11-02-2022 Lymphocytes Auto (Unsp spec) [#/Vol] 3.92 10*3/uL 0.83-4.51 [facility] Basophil percentageOrdered B y: Varsha Beth on 11-02-2022 Basophils/100 WBC (Bld) 0.5 % 0-1 [facility] Bilirubin [Mass/Vol] 0.30 mg/dL 0.20-1.00 [facility] Comment on above: For patients on eltr ombopag therapy, use of Dimension [place] TBIL is not recommended. Chloride [Moles/Vol] 105 mmol/L 98-107 [facility] Cholesterol [Mass/Vol] 180 mg/dL <200 [facility] Comment on above: <200 mg/dL Desirable 200-240 mg/dL Borderline >240 mg/dL High Risk Eosinophils/100 WBC (Bld) 0.6 % 0-5 [facility] Glucose [Mass/Vol] 83 mg/dL 74-106 [facility] Neutrophils (Bld) [#/Vol] 7.9 10*3/uL 2.0-7.7 [facility] Neutrophils/100 WBC (Bld) 61.8 % 47-70 [facility] Potassium [Moles/Vol] 3.9 mmol/L 3.5-5.1 [facility] Protein [Mass/Vol] 7.4 g/dL 6.4-8.2 [facility] Sodium [Moles/Vol] 138 mmol/L 136-145 [facility] Triglyceride [Mass/Vol] 102 mg/dL <199 [facility] Comment on above: The drugs N-Acetylcy steine and Metamizole may falsely depress this assay.Serum Triglycerides Reference Interval Normal <150 mg/dL Borderline high 150 - 199 mg/dL High 200 - 499 mg/dL Very High > or = 500 mg/dL WBC (Bld) [#/Vol] 12.7 10*3/uL 4.4-11.0 [facility] Blood erythrocytes count (nu mber/volume)Ordered By: Varsha Beth on 11-02-2022 RBC (Bld) [#/Vol] 5.02 10*6/uL 4.2-5.4 [facility] Blood hemoglobin measurement (mass/volume)Ordered By: Varsha Beth on 11-02-2022 Hemoglobin (Bld) [Mass/Vol] 15.5 g/dL 12.0-15.0 [facility] Blood lymphocytes/100 leukoc ytesOrdered By: Varsha Beth on 11-02-2022 Lymphocytes/100 WBC (Bld) 30.9 % 19-41 [facility] Blood monocytes/100 leukocyt esOrdered By: Varsha Beth on 11-02-2022 Monocytes/100 WBC (Bld) 5.8 % 0-10 [facility] Blood platelet mean volumeOr dered By: Varsha Beth on 11-02-2022 Platelet mean volume (Bld) [Entitic vol] 9.7 fL 6.2-12.0 [facility] Determination of erythrocyte mean corpuscular volume (MCV)Ordered By: Varsha Beth on 11-02-2022 MCV (RBC) [Entitic vol] 93.0 fL 81-99 [facility] Hematocrit Auto (Bld) [Volum e fraction]Ordered By: Varsha Beth on 11-02-2022 Hematocrit (Bld) [Volume fraction] 46.7 % 37-47 [facility] Laboratory - Chemistry and C hemistry - challengeOrdered By: Varsha Beth on 11-02-2022 ALP [Catalytic activity/Vol] 86 U/L 45-117 [facility] ALT [Catalytic activity/Vol] 44 U/L 13-56 [facility] CO2 [Moles/Vol] 28.0 mmol/L 21.0-32.0 [facility] Free T4 [Mass/Vol] 1.08 ng/dL 0.76-1.46 [facility] Globulin (S) [Mass/Vol] 3.6 g/dL 2.2-4.2 [facility] Urea nitrogen/Creatinine [Mass ratio] 8.3 mg/mg 10-20 [facility] Laboratory - Hematology and Cell countsOrdered By: Varsha Beth on 11-02-2022 Erythrocyte distribution width (RBC) [Entitic vol] 48.3 fL 35.1-43.9 [facility] Erythrocyte distribution width (RBC) [Ratio] 14.2 % 11.6-14.6 [facility] Immature granulocytes/100 WBC (Bld) 0.400 % 0.0-0.9 [facility] Comment on above: IG% - Immature Granu locytes (promyelocytes, myelocytes and metamyelocytes) > 1% indicates that a LEFT SHIFT is Present. MCH (RBC) [Entitic mass] 30.9 pg 27.0-32.0 [facility] Nucleated RBC/100 WBC (Bld) [Ratio] 0 % 0-5 [facility] MCHC Auto (RBC) [Mass/Vol]Or dered By: Varsha Beth on 11-02-2022 MCHC (RBC) [Mass/Vol] 33.2 g/dL 32-36 [facility] No Panel InformationOrdered By: Varhsa Beth on 11-02-2022 Estimated GFR (MDRD) Amer 95 mL/min >60 [facility] Comment on above: GFR Calc Estimated GFR (MDRD) Non-Af Amer 78 mL/min >60 [facility] Comment on above: Non- GFR Calc Thyroid Stimulating Hormone (TSH) 1.08 uIU/mL 0.358-3.74 [facility] Platelets bldOrdered By: Jaspal Beth on 11-02-2022 Platelets (Bld) [#/Vol] 338 10*3/uL 150-450 [facility] Serum or plasma albumin raven urement (mass/volume)Ordered By: Varsha Beth on 11-02-2022 Albumin [Mass/Vol] 3.8 g/dL 3.2-5.0 [facility] Serum or plasma albumin/glob ulin mass ratioOrdered By: Varsha Beth on 11-02-2022 Albumin/Globulin [Mass ratio] 1.1 {ratio} 0.9-2.4 [facility] Serum or plasma calcium raven urement (mass/volume)Ordered By: Varsha Beth on 11-02-2022 Calcium [Mass/Vol] 10.1 mg/dL 8.5-10.1 [facility] Serum or plasma cholesterol in HDL measurement (mass/volume)Ordered By: Varsha Beth on 11-02-2022 Cholesterol in HDL [Mass/Vol] 51 mg/dL >40 [facility] Comment on above: The drugs N-Acetylcy steine and Metamizole may falsely depress this assay. Reference Range HDL <40 mg/dL Low HDL Cholesterol HDL >or= 60 mg/dL High HDL Cholesterol Serum or plasma cholesterol in VLDL measurement (mass/volume)Ordered By: Varsha Beth on 11-02-2022 Cholesterol in VLDL [Mass/Vol] 20 mg/dL 5-40 [facility] Serum or plasma creatinine m easurement (mass/volume)Ordered By: Varsha Beth on 11-02-2022 Creatinine [Mass/Vol] 0.84 mg/dL 0.55-1.02 [facility] Comment on above: The validity of the calculated GFR & GFRAA in patients over 70 years has not been determined. Clinical correlation is essential. Serum or plasma low density lipoprotein (LDL) cholesterol measurement (mass/volume)Ordered By: Varsha Beth on 11-02-2022 Cholesterol in LDL [Mass/Vol] 109 mg/dL 0-130 [facility] Serum or plasma urea nitroge n measurement (mass/volume)Ordered By: Varsha Beth on 11-02-2022 Urea nitrogen [Mass/Vol] 7 mg/dL 7-18 [facility] Thin prep Papanicolaou smear with manual screeningOrdered By: Varsha Beth on 11-02-2022 Thin prep Papanicolaou smear with manual screening 20 U/L 15-37 [facility] Thin prep Papanicolaou smear with manual screening 5 5-15 [facility] Basophil percentageOrdered B y: Varsha Beth on 07-25-2022 Bilirubin [Mass/Vol] 0.30 mg/dL 0.20-1.00 [facility] Comment on above: For patients on eltr ombopag therapy, use of [place] TBIL is not recommended. Chloride [Moles/Vol] 104 mmol/L 98-107 [facility] Cholesterol [Mass/Vol] 189 mg/dL <200 [facility] Comment on above: <200 mg/dL Desirable 200-240 mg/dL Borderline >240 mg/dL High Risk Glucose [Mass/Vol] 94 mg/dL 74-106 [facility] Potassium [Moles/Vol] 4.1 mmol/L 3.5-5.1 [facility] Protein [Mass/Vol] 7.5 g/dL 6.4-8.2 [facility] Sodium [Moles/Vol] 139 mmol/L 136-145 [facility] Triglyceride [Mass/Vol] 154 mg/dL <199 [facility] Comment on above: The drugs N-Acetylcy steine and Metamizole may falsely depress this assay.Serum Triglycerides Reference Interval Normal <150 mg/dL Borderline high 150 - 199 mg/dL High 200 - 499 mg/dL Very High > or = 500 mg/dL Laboratory - Chemistry and C hemistry - challengeOrdered By: Varsha Beth on 07-25-2022 ALP [Catalytic activity/Vol] 82 U/L 45-117 [facility] ALT [Catalytic activity/Vol] 41 U/L 13-56 [facility] CO2 [Moles/Vol] 29.0 mmol/L 21.0-32.0 [facility] Free T4 [Mass/Vol] 0.80 ng/dL 0.76-1.46 [facility] Globulin (S) [Mass/Vol] 3.6 g/dL 2.2-4.2 [facility] Urea nitrogen/Creatinine [Mass ratio] 9.9 mg/mg 10-20 [facility] No Panel InformationOrdered By: Varsha Beth on 07-25-2022 Estimated GFR (MDRD) Amer 86 mL/min >60 [facility] Comment on above: GFR Calc Estimated GFR (MDRD) Non-Af Amer 71 mL/min >60 [facility] Comment on above: Non- GFR Calc Thyroid Stimulating Hormone (TSH) 3.43 uIU/mL 0.358-3.74 [facility] Serum or plasma albumin raven urement (mass/volume)Ordered By: Varsha Beth on 07-25-2022 Albumin [Mass/Vol] 3.9 g/dL 3.2-5.0 [facility] Serum or plasma albumin/glob ulin mass ratioOrdered By: Varsha Beth on 07-25-2022 Albumin/Globulin [Mass ratio] 1.1 {ratio} 0.9-2.4 [facility] Serum or plasma calcium raven urement (mass/volume)Ordered By: Varsha Beth on 07-25-2022 Calcium [Mass/Vol] 10.5 mg/dL 8.5-10.1 [facility] Serum or plasma cholesterol in HDL measurement (mass/volume)Ordered By: Varsha Beth on 07-25-2022 Cholesterol in HDL [Mass/Vol] 51 mg/dL >40 [facility] Comment on above: The drugs N-Acetylcy steine and Metamizole may falsely depress this assay. Reference Range HDL <40 mg/dL Low HDL Cholesterol HDL >or= 60 mg/dL High HDL Cholesterol Serum or plasma cholesterol in VLDL measurement (mass/volume)Ordered By: Varsha Beth on 07-25-2022 Cholesterol in VLDL [Mass/Vol] 31 mg/dL 5-40 [facility] Serum or plasma creatinine m easurement (mass/volume)Ordered By: Varsha Beth on 07-25-2022 Creatinine [Mass/Vol] 0.91 mg/dL 0.55-1.02 [facility] Comment on above: The validity of the calculated GFR & GFRAA in patients over 70 years has not been determined. Clinical correlation is essential. Serum or plasma low density lipoprotein (LDL) cholesterol measurement (mass/volume)Ordered By: Varsha Beth on 07-25-2022 Cholesterol in LDL [Mass/Vol] 107 mg/dL 0-130 [facility] Serum or plasma urea nitroge n measurement (mass/volume)Ordered By: Varsha Beth on 07-25-2022 Urea nitrogen [Mass/Vol] 9 mg/dL 7-18 [facility] Thin prep Papanicolaou smear with manual screeningOrdered By: Varsha Beth on 07-25-2022 Thin prep Papanicolaou smear with manual screening 16 U/L 15-37 [facility] Thin prep Papanicolaou smear with manual screening 6 5-15 [facility] AMPHETAMINE CONFIRM,URINEon 04-16-2022 AMPHETAMINES 3171 ng/mL Normal [facility] Comment on above: Result Comment: Cons istent with use of a drug containing amphetamine. May also reflect metabolism of methamphetamine, when methamphetamine is present. Amphetamine and methamphetamine exist in d- and l-isomeric forms. These forms are not distinguished by this test. Isomeric separation is available separately for an additional charge. INTERPRETIVE INFORMATION: Amphetamines, Urine, Quantitative Methodology: Quantitative Liquid Chromatography-Tandem Mass Spectrometry Positive cutoff: 200 ng/mL unless specified below: Amphetamine 50 ng/mL For medical purposes only; not valid for forensic use. The absence of expected drug(s) and/or drug metabolite(s) may indicate non-compliance, inappropriate timing of specimen collection relative to drug administration, poor drug absorption, diluted/adulterated urine, or limitations of testing. The concentration value must be greater than or equal to the cutoff to be reported as positive. Interpretive questions should be directed to the laboratory. This test was developed and its performance characteristics determined by [employer]. It has not been cleared or approved by the [place] Food and Drug Administration. This test was performed in a CLIA certified laboratory and is intended for clinical purposes. Performed By: #### A MPC1 #### [facility] [address] [place] [address] MDA <200 Normal [facility] Comment on above: Performed By: #### A MPC1 #### [facility] [address] [place] [address] MDEA <200 Normal [facility] Comment on above: Performed By: #### A MPC1 #### [facility] [address] [place] [address] MDMA <200 Normal [facility] Comment on above: Performed By: #### A MPC1 #### [address] [place] [address] METHAMPHETAMINE <200 Normal [facility] Comment on above: Performed By: #### A MPC1 #### [facility] [address] [place] [address] PHENTERMINE <200 Normal [facility] Comment on above: Result Comment: Perf ormed By: [address] [place] [address] Wholesale Manager: Caden Pruitt MD, PhD Performed By: #### A MPC1 #### [address] [address] Absolute lymphocyte countOrd ered By: Varsha Beth on 04-14-2022 Lymphocytes Auto (Unsp spec) [#/Vol] 3.82 10*3/uL 0.83-4.51 [facility] Basophil percentageOrdered B y: Varsha Beth on 04-14-2022 Basophils/100 WBC (Bld) 0.6 % 0-1 [facility] Bilirubin [Mass/Vol] 0.30 mg/dL 0.20-1.00 [facility] Comment on above: For patients on eltr ombopag therapy, use of [place] TBIL is not recommended. Chloride [Moles/Vol] 106 mmol/L 98-107 [facility] Eosinophils/100 WBC (Bld) 0.9 % 0-5 [facility] Glucose [Mass/Vol] 93 mg/dL 74-106 [facility] Neutrophils (Bld) [#/Vol] 6.9 10*3/uL 2.0-7.7 [facility] Neutrophils/100 WBC (Bld) 59.6 % 47-70 [facility] Potassium [Moles/Vol] 4.2 mmol/L 3.5-5.1 [facility] Protein [Mass/Vol] 7.5 g/dL 6.4-8.2 [facility] Sodium [Moles/Vol] 139 mmol/L 136-145 [facility] WBC (Bld) [#/Vol] 11.6 10*3/uL 4.4-11.0 [facility] Blood erythrocytes count (nu mber/volume)Ordered By: Varsha Beth on 04-14-2022 RBC (Bld) [#/Vol] 4.85 10*6/uL 4.2-5.4 [facility] Blood hemoglobin measurement (mass/volume)Ordered By: Varsha Beth on 04-14-2022 Hemoglobin (Bld) [Mass/Vol] 14.8 g/dL 12.0-15.0 [facility] Blood lymphocytes/100 leukoc ytesOrdered By: Varsha Beth on 04-14-2022 Lymphocytes/100 WBC (Bld) 32.8 % 19-41 [facility] Blood monocytes/100 leukocyt esOrdered By: Varsha Beth on 04-14-2022 Monocytes/100 WBC (Bld) 5.7 % 0-10 [facility] Blood platelet mean volumeOr dered By: Varsha Beth on 04-14-2022 Platelet mean volume (Bld) [Entitic vol] 9.5 fL 6.2-12.0 [facility] Determination of erythrocyte mean corpuscular volume (MCV)Ordered By: Varsha Beth on 04-14-2022 MCV (RBC) [Entitic vol] 91.3 fL 81-99 [facility] Hematocrit Auto (Bld) [Volum e fraction]Ordered By: Varsha Beth on 04-14-2022 Hematocrit (Bld) [Volume fraction] 44.3 % 37-47 [facility] Laboratory - Chemistry and C hemistry - challengeOrdered By: Varsha Beth on 04-14-2022 ALP [Catalytic activity/Vol] 79 U/L 45-117 [facility] ALT [Catalytic activity/Vol] 41 U/L 13-56 [facility] CO2 [Moles/Vol] 30.0 mmol/L 21.0-32.0 [facility] Globulin (S) [Mass/Vol] 3.6 g/dL 2.2-4.2 [facility] Urea nitrogen/Creatinine [Mass ratio] 12.8 mg/mg 10-20 [facility] Laboratory - Hematology and Cell countsOrdered By: Varsha Beth on 04-14-2022 Erythrocyte distribution width (RBC) [Entitic vol] 46.7 fL 35.1-43.9 [facility] Erythrocyte distribution width (RBC) [Ratio] 14.0 % 11.6-14.6 [facility] Immature granulocytes/100 WBC (Bld) 0.400 % 0.0-0.9 [facility] Comment on above: IG% - Immature Granu locytes (promyelocytes, myelocytes and metamyelocytes) > 1% indicates that a LEFT SHIFT is Present. MCH (RBC) [Entitic mass] 30.5 pg 27.0-32.0 [facility] Nucleated RBC/100 WBC (Bld) [Ratio] 0 % 0-5 [facility] MCHC Auto (RBC) [Mass/Vol]Or dered By: Varsha Beth on 04-14-2022 MCHC (RBC) [Mass/Vol] 33.4 g/dL 32-36 [facility] No Panel InformationOrdered By: Varsha Beth on 04-14-2022 Estimated GFR (MDRD) Amer 84 mL/min >60 [facility] Comment on above: GFR Calc Estimated GFR (MDRD) Non-Af Amer 69 mL/min >60 [facility] Comment on above: Non- GFR Calc Thyroid Stimulating Hormone (TSH) 1.47 uIU/mL 0.358-3.74 [facility] Platelets bldOrdered By: Jaspal Beth on 04-14-2022 Platelets (Bld) [#/Vol] 383 10*3/uL 150-450 [facility] Serum or plasma albumin raven urement (mass/volume)Ordered By: Varsha Beth on 04-14-2022 Albumin [Mass/Vol] 3.9 g/dL 3.2-5.0 [facility] Serum or plasma albumin/glob ulin mass ratioOrdered By: Varsha Beth on 04-14-2022 Albumin/Globulin [Mass ratio] 1.1 {ratio} 0.9-2.4 [facility] Serum or plasma calcium raven urement (mass/volume)Ordered By: Varsha Beth on 04-14-2022 Calcium [Mass/Vol] 10.2 mg/dL 8.5-10.1 [facility] Serum or plasma creatinine m easurement (mass/volume)Ordered By: Varsha Beth on 04-14-2022 Creatinine [Mass/Vol] 0.94 mg/dL 0.55-1.02 [facility] Comment on above: The validity of the calculated GFR & GFRAA in patients over 70 years has not been determined. Clinical correlation is essential. Serum or plasma urea nitroge n measurement (mass/volume)Ordered By: Varsha Beth on 04-14-2022 Urea nitrogen [Mass/Vol] 12 mg/dL 7-18 [facility] Thin prep Papanicolaou smear with manual screeningOrdered By: Varsha Beth on 04-14-2022 Thin prep Papanicolaou smear with manual screening 16 U/L 15-37 [facility] Thin prep Papanicolaou smear with manual screening 3 5-15 [facility] DRUG SCREEN,URINE WITH REFLE X TO CONFIRMATIONon 04-12-2022 AMPHETAMINE SCREEN,U Positive Abnormal NEGATIVE [facility] Comment on above: Result Comment: CUTO FF LEVEL: 500 NG/ML Cross-reactivity has been reported with high concentrations of the following drugs: buproprion, chloroquine, chlorpromazine, ephedrine, mephentermine, fenfluramine, phentermine, phenylpropanolamine, pseudoephedrine, and propranolol. Performed By: #### D RUGR #### [facility] [address] [place] [address] BARBITURATES SCREEN,U Negative Normal NEGATIVE [facility] Comment on above: Result Comment: CUTO FF LEVEL: 200 NG/ML Performed By: #### D RUGR #### [facility] [address] [place] [address] BENZODIAZEPINES SCREEN,U Negative Normal NEGATIVE [facility] Comment on above: Result Comment: CUTO FF LEVEL: 200 NG/ML Performed By: #### D RUGR #### [facility] [address] [place] [address] CANNABINOIDS SCREEN,U Negative Normal NEGATIVE [facility] Comment on above: Result Comment: CUTO FF LEVEL: 50 NG/ML Performed By: #### D RUGR #### [facility] [address] [place] [address] COCAINE METABOLITE SCREEN,U Negative Normal NEGATIVE [facility] Comment on above: Result Comment: CUTO FF LEVEL: 150 NG/ML Performed By: #### D RUGR #### [facility] [address] [place] [address] DRUG SCREEN COMMENT SEE BELOW Normal [facility] Comment on above: Result Comment: Drug screen results are presumptive and should not be used to assess compliance with prescribed medication. Definitive confirmatory drug testing has been added to this sample for any positive screen result and will be reported separately. . Toxicology screening results are reported qualitatively. The concentration must be greater than or equal to the cutoff to be reported as positive. The concentration at which the screening test can detect an individual drug or metabolite varies. The absence of expected drug(s) and/or drug metabolite(s) may indicate non-compliance, inappropriate timing of specimen collection relative to drug administration, poor drug absorption, diluted/adulterated urine, or limitations of testing. For medical purposes only; not valid for forensic use. . Interpretive questions should be directed to the laboratory medical directors. Performed By: #### D RUGR #### [facility] [address] [place] [address] FENTANYL SCREEN,URINE Negative Normal NEGATIVE [facility] Comment on above: Result Comment: CUTO FF LEVEL: 5 NG/ML Performed By: #### D RUGR #### [facility] [address] [place] [address] METHADONE SCREEN,U Negative Normal NEGATIVE [facility] Comment on above: Result Comment: CUTO FF LEVEL: 150 NG/ML The metabolite E-mlkzb-jiiyecijycllbs (LAAM) is not detected by this method in concentrations that would be found in the urine of patients on LAAM therapy. Performed By: #### D RUGR #### [facility] [address] [place] [address] OPIATES SCREEN,U Negative Normal NEGATIVE [facility] Comment on above: Result Comment: CUTO FF LEVEL: 300 NG/ML The opiate screen does not detect fentanyl, meperidine, or tramadol. Oxycodone is not consistently detected (refer to Oxycodone Screen, Urine result). Performed By: #### D RUGR #### [facility] [address] [place] [address] OXYCODONE SCREEN,U Negative Normal NEGATIVE [facility] Comment on above: Result Comment: CUTO FF LEVEL: 100 NG/ML This test will accurately detect both oxycodone and oxymorphone. Performed By: #### D RUGR #### [facility] [address] [place] [address] PCP SCREEN,U Negative Normal NEGATIVE [facility] Comment on above: Result Comment: CUTO FF LEVEL: 25 NG/ML Cross-reactivity has been reported with dextromethorphan. Performed By: #### D RUGR #### [facility] [address] [place] [address] Laboratory - Drug toxicology on 04-11-2022 Amphetamine (U) [Mass/Vol] 3171 ng/mL [facility] Work Phone: Comment on above: Consistent with use of a drug containing amphetamine. May also reflect metabolism of methamphetamine, when methamphetamine is present. Amphetamine and methamphetamine exist in d- and l-isomeric forms. These forms are not distinguished by this test. Isomeric separation is available separately for an additional charge.INTERPRETIVE INFORMATION: Amphetamines, Urine, QuantitativeMethodology: Quantitative Liquid Chromatography-Tandem Mass SpectrometryPositive cutoff: 200 ng/mL unless specified below:Amphetamine 50 ng/mLFor medical purposes only; not valid for forensic use. The absence of expected drug(s) and/or drug metabolite(s) may indicate non-compliance, inappropriate timing of specimen collection relative to drug administration, poor drug absorption, diluted/adulterated urine, or limitations of testing. The concentration value must be greater than or equal to the cutoff to be reported as positive. Interpretive questions should be directed to the laboratory.This test was developed and its performance characteristics determined by [employer]. It has not been cleared or approved by the [place] Food and Drug Administration. This test was performed in a CLIA certified laboratory and is intended for clinical purposes. Amphetamines Screen Ql (U) Positive Abnormal NEGATIVE [facility] Work Phone: Comment on above: CUTOFF LEVEL: 500 NG /ML Cross-reactivity has been reported with high concentrations of the following drugs: buproprion, chloroquine, chlorpromazine, ephedrine, mephentermine, fenfluramine, phentermine, phenylpropanolamine, pseudoephedrine, and propranolol. Barbiturates Screen Ql (U) Negative NEGATIVE [facility] Work Phone: Comment on above: CUTOFF LEVEL: 200 NG /ML Benzodiazepines Ql (U) Negative NEGATIVE [facility] Work Phone: Comment on above: CUTOFF LEVEL: 200 NG /ML Benzoylecgonine Screen Ql (U) Negative NEGATIVE [facility] Work Phone: Comment on above: CUTOFF LEVEL: 150 NG /ML Cannabinoids Screen Ql (U) Negative NEGATIVE [facility] Work Phone: Comment on above: CUTOFF LEVEL: 50 NG/ ML Methadone Screen Ql (U) Negative NEGATIVE [facility] Work Phone: Comment on above: CUTOFF LEVEL: 150 NG /ML The metabolite G-wwgkk-uyhdjdtqxhkioi (LAAM) is not detected by this method in concentrations that would be found in the urine of patients on LAAM therapy. Methamphetamine (U) [Mass/Vol] ug/mL [facility] Work Phone: Methylenedioxyamphetamine (U) [Mass/Vol] <200 [facility] Work Phone: Methylenedioxyethylamphet amine (U) [Mass/Vol] <200 [facility] Work Phone: Methylenedioxymethampheta mine (U) [Mass/Vol] <200 [facility] Work Phone: Opiates Screen Ql (U) Negative NEGATIVE [facility] Work Phone: Comment on above: CUTOFF LEVEL: 300 NG /ML The opiate screen does not detect fentanyl, meperidine, or tramadol. Oxycodone is not consistently detected (refer to Oxycodone Screen, Urine result). oxyCODONE+oxyMORphone Screen Ql (U) Negative NEGATIVE [facility] Work Phone: Comment on above: CUTOFF LEVEL: 100 NG /ML This test will accurately detect both oxycodone and oxymorphone. Phencyclidine Ql (U) Negative NEGATIVE [facility] Work Phone: Comment on above: CUTOFF LEVEL: 25 NG/ ML Cross-reactivity has been reported with dextromethorphan. Phentermine Confirm (U) [Mass/Vol] <200 [facility] Work Phone: Comment on above: Performed By: SHASHANK [id number] [place] [address] [id number] Director: Caden Pruitt MD, PhD No Panel Informationon 04-11 Negative NEGATIVE [facility] Work Phone: Comment on above: CUTOFF LEVEL: 5 NG/M L SEE BELOW [facility] Work Phone: Comment on above: Drug screen results are presumptive and should not be used to assess compliance with prescribed medication. Definitive confirmatory drug testing has been added to this sample for any positive screen result and will be reported separately. .Toxicology screening results are reported qualitatively. The concentration must be greater than or equal to the cutoff to be reported as positive. The concentration at which the screening test can detect an individual drug or metabolite varies. The absence of expected drug(s) and/or drug metabolite(s) may indicate non-compliance, inappropriate timing of specimen collection relative to drug administration, poor drug absorption, diluted/adulterated urine, or limitations of testing. For medical purposes only; not valid for forensic use. .Interpretive questions should be directed to the laboratory medical directors. 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 Joanie Franco MD. All medical record entries made by the Scribe were at my direction and personally dictated by me. I have reviewed the chart and agree that the record accurately reflects my personal performance of the history, physical exam, discussion and plan. History of Present Illness EP. Here for follow up on ADHD and medication. Bin is a 41 year old female presenting today for a follow up of her ADHD and medication refills. -Patient was seen on 04/07/22 at [facility] -Reports having to call 911 and being brought to [facility] on 04/07. This was due to severe confusion, numbness, and dyspnea. -States her symptoms proceeded to get worse after calling. -At the ER she states they found nothing wrong -She had a CT scan of the head and CXR. - states she would have outbursts while they were at the hospital- she does not recall this -Prior to this reports she was yelled at at work and thinks this may have triggered her anxiety. -Taking all of her medications as prescribed. -Still having a little brain fog. -Denies any drug use Review of Systems Genl: The patient has been in good health without recent weight change, fevers, or night sweats CVS: No chest pain, irregular heartbeat, shortness of breath, or swollen ankles Resp: No cough or difficulty breathing GI: No change in bowel habits or abdominal pain. 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) Anxiety (300.00) (F41.9) Anxiety disorder (300.00) (F41.9) Depression (311) (F32.A) Added by Problem List Migration; 2012-05-21; Moved to Suppressed Feb 15 2013 4:11PM Dermatitis (692.9) (L30.9) Encounter for gynecological examination without abnormal finding (V72.31) (Z01.419) 02/18/2008 Encounter for routine gynecological examination with Papanicolaou smear of cervix (V72.31,V76.2) (Z01.419) Encounter for screening for malignant neoplasm of breast (V76.10) (Z12.39) Folliculitis (704.8) (L73.9) Herpes simplex (054.9) (B00.9) Hyperlipidemia (272.4) (E78.5) Impetigo (684) (L01.00) Insomnia (780.52) (G47.00) Memory difficulties (780.93) (R41.3) Rash (782.1) (R21) Screening cholesterol level (V77.91) (Z13.220) Skin lesion (709.9) (L98.9) Sore throat (462) (J02.9) Thyroid disease (246.9) (E07.9) Tinea pedis (110.4) (B35.3) Past Medical History History of Acute upper respiratory infection (465.9) (J06.9) History of Depression with anxiety (300.4) (F41.8) History of Elevated blood pressure reading without diagnosis of hypertension (796.2) (R03.0) History of acute bronchitis (V12.69) (Z87.09) History of acute pharyngitis (V12.69) (Z87.09) History of attention deficit hyperactivity disorder (ADHD) (V11.8) (Z86.59) History of hypertension (V12.59) (Z86.79) History of Irritable mood (799.22) (R45.4) History of Muscular aches (729.1) (M79.10) Personal history of asthma (V12.69) (Z87.09) Surgical History History of Pilonidal cyst removal Family History Family history of dementia (V17.2) (Z81.8) Family history of memory loss (V17.2) (Z82.0) Family history of No Significant Family History Social History Alcohol Use (History) Caffeine Use Marital History - Currently Smoker, current status unknown (305.1) (F17.200) Allergies No Known Allergies Recorded By: Bin De; 03/28/2012 9:14:12 AM Current Meds Medication NameInstructionReason Vyvanse 50 MG Oral CapsuleTAKE 1 CAPSULE DAILY IN THE MORNING.ADHD, predominantly inattentive type buPROPion HCl ER (XL) 300 MG Oral Tablet Extended Release 24 HourTAKE 1 TABLET DAILY.Anxiety disorder Venlafaxine HCl ER 75 MG Oral Capsule Extended Release 24 HourTAKE 3 CAPSULES DAILYAnxiety disorder valACYclovir HCl - 1 GM Oral Tablet2 tabs bid x 1 dayHerpes simplex Atorvastatin Calcium 20 MG Oral TabletTAKE 1 TABLET DAILY.Hyperlipidemia traZODone HCl - 100 MG Oral TabletTAKE 2 TABLETS AT BEDTIME.Insomnia Terbinafine HCl - 250 MG Oral TabletTAKE 1 TABLET DAILY.Tinea pedis Levothyroxine Sodium 50 MCG Oral TabletTAKE 1 TABLET DAILY. Physical Exam Alert, well-appearing CVS RRR, no murmurs Resp clear Abd soft, NT, no masses or HSM 'Scores and Scales' Signatures Electr (more content not included)... Normal [facility] Absolute lymphocyte countOrd ered By: Dr. López on 04-07-2022 Lymphocytes Auto (Unsp spec) [#/Vol] 5.16 10*3/uL 0.83-4.51 [facility] Basophil percentageOrdered B y: Dr. López on 04-07-2022 Basophil percentage 0 SEEN /hpf 0-5 [facility] Basophils/100 WBC (Bld) 0.6 % 0-1 [facility] Bilirubin [Mass/Vol] 0.60 mg/dL 0.20-1.00 [facility] Comment on above: For patients on eltr ombopag therapy, use of Dimension [place] TBIL is not recommended. Chloride [Moles/Vol] 105 mmol/L 98-107 [facility] Eosinophils/100 WBC (Bld) 0.9 % 0-5 [facility] Glucose [Mass/Vol] 123 mg/dL 74-106 [facility] Comment on above: Fasting Glucose resu lt from 100 to 125 mg/dL suggests IMPAIRED HOMEOSTASIS per A.D.A. criteria. Neutrophils (Bld) [#/Vol] 9.1 10*3/uL 2.0-7.7 [facility] Neutrophils/100 WBC (Bld) 57.9 % 47-70 [facility] Potassium [Moles/Vol] 4.8 mmol/L 3.5-5.1 [facility] Comment on above: Moderate Hemolysis, Result may be falsely increased. Protein [Mass/Vol] 8.3 g/dL 6.4-8.2 [facility] Sodium [Moles/Vol] 135 mmol/L 136-145 [facility] WBC (Bld) [#/Vol] 15.6 10*3/uL 4.4-11.0 [facility] Beta hCG serum qualOrdered B y: Dr. López on 04-07-2022 Beta HCG ( test) Ql Negative [facility] Bilirubin Test strip Ql (U)O rdered By: Dr. López on 04-07-2022 Bilirubin Ql (U) Negative Negative [facility] Blood erythrocytes count (nu mber/volume)Ordered By: Dr. López on 04-07-2022 RBC (Bld) [#/Vol] 5.11 10*6/uL 4.2-5.4 [facility] Blood hemoglobin measurement (mass/volume)Ordered By: Dr. López on 04-07-2022 Hemoglobin (Bld) [Mass/Vol] 15.6 g/dL 12.0-15.0 [facility] Blood lymphocytes/100 leukoc ytesOrdered By: Dr. López on 04-07-2022 Lymphocytes/100 WBC (Bld) 33.1 % 19-41 [facility] Blood manual differential co mment interpretation (narrative result)Ordered By: Dr. López on 04-07-2022 Manual differential comment Rogers (Bld) [Interp] SCANNED [facility] Blood monocytes/100 leukocyt esOrdered By: Dr. López on 04-07-2022 Monocytes/100 WBC (Bld) 7.0 % 0-10 [facility] Blood platelet mean volumeOr dered By: Dr. López on 04-07-2022 Platelet mean volume (Bld) [Entitic vol] 10.0 fL 6.2-12.0 [facility] Determination of erythrocyte mean corpuscular volume (MCV)Ordered By: Dr. López on 04-07-2022 MCV (RBC) [Entitic vol] 89.6 fL 81-99 [facility] Hematocrit Auto (Bld) [Volum e fraction]Ordered By: Dr. López on 04-07-2022 Hematocrit (Bld) [Volume fraction] 45.8 % 37-47 [facility] Ketones Test strip Ql (U)Ord ered By: Dr. López on 04-07-2022 Ketones Ql (U) Negative Negative [facility] Laboratory - Chemistry and C hemistry - challengeOrdered By: Dr. López on 04-07-2022 ALP [Catalytic activity/Vol] 83 U/L 45-117 [facility] ALT [Catalytic activity/Vol] 37 U/L 13-56 [facility] CO2 [Moles/Vol] 22.0 mmol/L 21.0-32.0 [facility] Globulin (S) [Mass/Vol] 4.2 g/dL 2.2-4.2 [facility] Urea nitrogen/Creatinine [Mass ratio] 7.7 mg/mg 10-20 [facility] Laboratory - Drug toxicology Ordered By: Dr. López on 04-07-2022 Amphetamines Ql (U) Positive <1000 ng/mL [facility] Benzodiazepines Ql (U) Negative < 200 ng/mL [facility] Cannabinoids Screen Ql (U) Negative < 50 ng/mL [facility] Cocaine Ql (U) Negative < 300 ng/mL [facility] Opiates Ql (U) Negative < 300 ng/mL [facility] Laboratory - Hematology and Cell countsOrdered By: Dr. López on 04-07-2022 Erythrocyte distribution width (RBC) [Entitic vol] 45.7 fL 35.1-43.9 [facility] Erythrocyte distribution width (RBC) [Ratio] 14.0 % 11.6-14.6 [facility] Immature granulocytes/100 WBC (Bld) 0.500 % 0.0-0.9 [facility] Comment on above: IG% - Immature Granu locytes (promyelocytes, myelocytes and metamyelocytes) > 1% indicates that a LEFT SHIFT is Present. MCH (RBC) [Entitic mass] 30.5 pg 27.0-32.0 [facility] Nucleated RBC/100 WBC (Bld) [Ratio] 0 % 0-5 [facility] MCHC Auto (RBC) [Mass/Vol]Or dered By: Dr. López on 04-07-2022 MCHC (RBC) [Mass/Vol] 34.1 g/dL 32-36 [facility] Mucus LM Ql (Urine sed)Order ed By: Dr. López on 04-07-2022 Mucus Ql (Urine sed) 0 SEEN /hpf [facility] Nitrite Test strip Ql (U)Ord ered By: Dr. López on 04-07-2022 Nitrite Ql (U) Negative Negative [facility] No Panel InformationOrdered By: Dr. López on 04-07-2022 Estimated Creatinine Clearance Calc 65.22 ml/min [facility] Estimated GFR (MDRD) Amer 86 mL/min >60 [facility] Comment on above: GFR Calc Estimated GFR (MDRD) Non-Af Amer 71 mL/min >60 [facility] Comment on above: Non- GFR Calc Ethyl Alcohol Level < 3.0 mg/dL [facility] Comment on above: The serum:whole bloo d ethanol ratio is approximately 1.14and varies slightly with hematocrit. Medical Alcohol reference interval and critical value innon-tolerant individuals; 50 - 100 Impairment 100 Intoxication 100 - 250 Severe Poisoning 250 - 400 Deep/possible fatal coma MDMA (Ecstasy) Screen Positive < 500 ng/mL [facility] Thyroid Stimulating Hormone (TSH) 2.34 uIU/mL 0.358-3.74 [facility] Troponin I High Sensitivity 3 pg/mL 3.0-54.0 [facility] Comment on above: Please Note: [place] t Units and Gender Specific Reference Ranges. For more information see Policy Stat Procedure [place] High Sensitivity Troponin (TNIH) and attachments. Urine Barbiturates Screen Negative < 200 ng/m L [facility] Urine Drug Screen Comment [facility] Comment on above: CONFIRMATORY TESTING FOR ALL POSITIVE URINE DRUG SCREENRESULTS WILL ONLY BE SENT OUT UPON PHYSICIAN ORDER. VISTA Urine Drug Screen methods provide only preliminaryanalytical test results. A more specific alternate chemicalmethod must be used in order to obtain a confirmedanalytical result. Gas chromatography/mass spectrometery(GC/MS) is the preferred confirmatory method. Clinicalconsideration and professional judgement should be appliedto any drug of abuse test result, particularly whenpreliminary positive results are used. URINE TCA TESTING MUST BE ORDERED SEPARATELY. USE TESTMNEMONIC: [facility] Urine Methadone Screen Negative < 300 ng/mL [facility] Platelets bldOrdered By: Dr. López on 04-07-2022 Platelets (Bld) [#/Vol] 415 10*3/uL 150-450 [facility] Protein Test strip Ql (U)Ord ered By: Dr. López on 04-07-2022 Protein Ql (U) Negative Negative [facility] Serum or plasma albumin raven urement (mass/volume)Ordered By: Dr. López on 04-07-2022 Albumin [Mass/Vol] 4.1 g/dL 3.2-5.0 [facility] Serum or plasma albumin/glob ulin mass ratioOrdered By: Dr. López on 04-07-2022 Albumin/Globulin [Mass ratio] 1.0 {ratio} 0.9-2.4 [facility] Serum or plasma calcium raven urement (mass/volume)Ordered By: Dr. López on 04-07-2022 Calcium [Mass/Vol] 10.1 mg/dL 8.5-10.1 [facility] Serum or plasma creatinine m easurement (mass/volume)Ordered By: Dr. López on 04-07-2022 Creatinine [Mass/Vol] 0.92 mg/dL 0.55-1.02 [facility] Comment on above: The validity of the calculated GFR & GFRAA in patients over 70 years has not been determined. Clinical correlation is essential. Serum or plasma urea nitroge n measurement (mass/volume)Ordered By: Dr. López on 04-07-2022 Urea nitrogen [Mass/Vol] 7 mg/dL 7-18 [facility] Squamous epithelial cells de tection in urine sediment by light microscopyOrdered By: Dr. López on 04-07-2022 Epithelial cells.squamous LM Ql (Urine sed) 0-5 SEEN /hpf 5-10 [facility] Thin prep Papanicolaou smear with manual screeningOrdered By: Dr. López on 04-07-2022 Thin prep Papanicolaou smear with manual screening 43 U/L 15-37 [facility] Comment on above: Moderate Hemolysis, Result may be falsely increased. Thin prep Papanicolaou smear with manual screening 8 5-15 [facility] Urine blood detectionOrdered By: Dr. López on 04-07-2022 RBC Ql (U) Negative Negative [facility] RBC Ql (U) 0 SEEN /hpf 0-5 [facility] Urine clarityOrdered By: Dr. López on 04-07-2022 Clarity (U) Clear Clear [facility] Urine color determinationOrd ered By: Dr. López on 04-07-2022 Color (U) Yellow Yellow [facility] Urine glucose detectionOrder ed By: Dr. López on 04-07-2022 Glucose Ql (U) Normal mg/dl Normal [facility] Urine leukocyte esterase det ection by dipstickOrdered By: Dr. López on 04-07-2022 Leukocyte esterase Test strip Ql (U) Negative Negative [facility] Urine pHOrdered By: Dr. Saeid rangel on 04-07-2022 pH (U) 6.0 [pH] 5.0 - 8.0 [facility] Urine phencyclidine (PCP) de tectionOrdered By: Dr. López on 04-07-2022 Phencyclidine Ql (U) Negative < 25 ng/mL [facility] Urine sediment bacteria coun t by microscopy (number/high power field)Ordered By: Dr. López on 04-07-2022 Bacteria LM.HPF (Urine sed) [#/Area] 0 /[HPF] None Seen [facility] Urine specific gravity measu rementOrdered By: Dr. López on 04-07-2022 Specific gravity (U) [Rel density] 1.015 1.002-1.030 [facility] Urobilinogen Auto test strip Ql (U)Ordered By: Dr. López on 04-07-2022 Urobilinogen Ql (U) Normal mg/dl Normal [facility] Absolute lymphocyte counton 12-16-2021 Lymphocytes Auto (Unsp spec) [#/Vol] 2.63 10*3/uL 0.83-4.51 [facility] Work Phone: Basophil percentageon 2021 Basophil percentage < 0.2 AI 0.0-0.9 [facility] Work Phone: Basophils/100 WBC (Bld) 0.6 % 0-1 [facility] Work Phone: Bilirubin [Mass/Vol] 0.30 mg/dL 0.20-1.00 [facility] Work Phone: Comment on above: For patients on eltr ombopag therapy, use of Dimension [place] TBIL is not recommended. Chloride [Moles/Vol] 104 mmol/L 98-107 [facility] Work Phone: Cholesterol [Mass/Vol] 213 mg/dL <200 [facility] Work Phone: Comment on above: <200 mg/dL Desirable 200-240 mg/dL Borderline >240 mg/dL High Risk Eosinophils/100 WBC (Bld) 1.7 % 0-5 [facility] Work Phone: Glucose [Mass/Vol] 98 mg/dL 74-106 [facility] Work Phone: Neutrophils (Bld) [#/Vol] 7.6 10*3/uL 2.0-7.7 [facility] Work Phone: Neutrophils/100 WBC (Bld) 68.3 % 47-70 [facility] Work Phone: Potassium [Moles/Vol] 4.3 mmol/L 3.5-5.1 [facility] Work Phone: Protein [Mass/Vol] 7.8 g/dL 6.4-8.2 [facility] Work Phone: Sodium [Moles/Vol] 141 mmol/L 136-145 [facility] Work Phone: Triglyceride [Mass/Vol] 172 mg/dL <199 [facility] Work Phone: Comment on above: The drugs N-Acetylcy steine and Metamizole may falsely depress this assay.Serum Triglycerides Reference Interval Normal <150 mg/dL Borderline high 150 - 199 mg/dL High 200 - 499 mg/dL Very High > or = 500 mg/dL WBC (Bld) [#/Vol] 11.2 10*3/uL 4.4-11.0 [facility] Work Phone: Blood erythrocytes count (nu mber/volume)on 12-16-2021 RBC (Bld) [#/Vol] 5.03 10*6/uL 4.2-5.4 [facility] Work Phone: Blood hemoglobin measurement (mass/volume)on 12-16-2021 Hemoglobin (Bld) [Mass/Vol] 15.4 g/dL 12.0-15.0 [facility] Work Phone: Blood lymphocytes/100 leukoc yteson 12-16-2021 Lymphocytes/100 WBC (Bld) 23.6 % 19-41 [facility] Work Phone: Blood monocytes/100 leukocyt eson 12-16-2021 Monocytes/100 WBC (Bld) 5.4 % 0-10 [facility] Work Phone: Blood platelet mean volumeon 12-16-2021 Platelet mean volume (Bld) [Entitic vol] 9.9 fL 6.2-12.0 [facility] Work Phone: Determination of erythrocyte mean corpuscular volume (MCV)on 12-16-2021 MCV (RBC) [Entitic vol] 92.6 fL 81-99 [facility] Work Phone: Hematocrit Auto (Bld) [Volum e fraction]on 12-16-2021 Hematocrit (Bld) [Volume fraction] 46.6 % 37-47 [facility] Work Phone: Laboratory - Chemistry and C hemistry - challengeon 12-16-2021 ALP [Catalytic activity/Vol] 91 U/L 45-117 [facility] Work Phone: ALT [Catalytic activity/Vol] 64 U/L 13-56 [facility] Work Phone: CO2 [Moles/Vol] 30.0 mmol/L 21.0-32.0 [facility] Work Phone: Free T4 [Mass/Vol] 0.92 ng/dL 0.76-1.46 [facility] Work Phone: Globulin (S) [Mass/Vol] 3.7 g/dL 2.2-4.2 [facility] Work Phone: Urea nitrogen/Creatinine [Mass ratio] 11.0 mg/mg 10-20 [facility] Work Phone: Laboratory - Hematology and Cell countson 12-16-2021 Erythrocyte distribution width (RBC) [Entitic vol] 46.2 fL 35.1-43.9 [facility] Work Phone: Erythrocyte distribution width (RBC) [Ratio] 13.5 % 11.6-14.6 [facility] Work Phone: Immature granulocytes/100 WBC (Bld) 0.400 % 0.0-0.9 [facility] Work Phone: Comment on above: IG% - Immature Granu locytes (promyelocytes, myelocytes and metamyelocytes) > 1% indicates that a LEFT SHIFT is Present. MCH (RBC) [Entitic mass] 30.6 pg 27.0-32.0 [facility] Work Phone: Nucleated RBC/100 WBC (Bld) [Ratio] 0 % 0-5 [facility] Work Phone: MCHC Auto (RBC) [Mass/Vol]on 12-16-2021 MCHC (RBC) [Mass/Vol] 33.0 g/dL 32-36 [facility] Work Phone: No Panel Informationon 12-16 [employer] B Antibody <0.2 AI 0.0-0.9 [facility] Work Phone: Estimated GFR (MDRD) Amer 87 mL/min >60 [facility] Work Phone: Comment on above: GFR Calc Estimated GFR (MDRD) Non-Af Amer 72 mL/min >60 [facility] [facility] Work Phone: Comment on above: Non- GFR Calc SENIOR SCIENCE CONSULTANT Antibody 0.7 AI 0.0-0.9 [facility] Work Phone: Thyroid Stimulating Hormone (TSH) 2.08 uIU/mL 0.358-3.74 [facility] Work Phone: Platelets bldon 12-16-2021 Platelets (Bld) [#/Vol] 357 10*3/uL 150-450 [facility] Work Phone: Serum DNA double strand anti body assay (units/volume)on 12-16-2021 DNA double strand Ab Qn (S) 1 [IU]/mL 0-9 [facility] Work Phone: Comment on above: Negative <5 Equivoca l 5 - 9 Positive >9 Serum Maria Isabel-1 antibody assay (u nits/volume)on 12-16-2021 Maria Isabel-1 extractable nuclear Ab Qn (S) <0.2 AI 0.0-0.9 [facility] Work Phone: Serum Scl-70 extractable nuc lear antibody assay (units/volume)on 12-16-2021 SCL-70 extractable nuclear Ab Qn (S) <0.2 AI 0.0-0.9 [facility] Work Phone: Serum Soni extractable nucl ear antibody detectionon 12-16-2021 Soni extractable nuclear Ab Ql (S) <0.2 AI 0.0-0.9 [facility] Work Phone: Serum or plasma albumin raven urement (mass/volume)on 12-16-2021 Albumin [Mass/Vol] 4.1 g/dL 3.2-5.0 [facility] Work Phone: Serum or plasma albumin/glob ulin mass ratioon 12-16-2021 Albumin/Globulin [Mass ratio] 1.1 {ratio} 0.9-2.4 [facility] Work Phone: Serum or plasma calcitriol m easurement (mass/volume)on 12-16-2021 1,25-dihydroxyvitamin D3 [Mass/Vol] 33.2 pg/mL 24.8-81.5 [facility] Work Phone: Comment on above: Please note refere nce interval changePerformed at: [facility] [employer] [address] [id number] Director: Michael Arevalo PhD, Phone: [phone] at: - [facility] [address] [id number] Director: Amie Wilson MD, Phone: [phone] Serum or plasma calcium raven urement (mass/volume)on 12-16-2021 Calcium [Mass/Vol] 10.5 mg/dL 8.5-10.1 [facility] Work Phone: Serum or plasma cholesterol in HDL measurement (mass/volume)on 12-16-2021 Cholesterol in HDL [Mass/Vol] 49 mg/dL >40 [facility] Work Phone: Comment on above: The drugs N-Acetylcy steine and Metamizole may falsely depress this assay. Reference Range HDL <40 mg/dL Low HDL Cholesterol HDL >or= 60 mg/dL High HDL Cholesterol Serum or plasma cholesterol in VLDL measurement (mass/volume)on 12-16-2021 Cholesterol in VLDL [Mass/Vol] 34 mg/dL 5-40 [facility] Work Phone: Serum or plasma creatinine m easurement (mass/volume)on 12-16-2021 Creatinine [Mass/Vol] 0.91 mg/dL 0.55-1.02 [facility] Work Phone: Comment on above: The validity of the calculated GFR & GFRAA in patients over 70 years has not been determined. Clinical correlation is essential. Serum or plasma low density lipoprotein (LDL) cholesterol measurement (mass/volume)on 12-16-2021 Cholesterol in LDL [Mass/Vol] 130 mg/dL 0-130 [facility] Work Phone: Serum or plasma urea nitroge n measurement (mass/volume)on 12-16-2021 Urea nitrogen [Mass/Vol] 10 mg/dL 7-18 [facility] Work Phone: Thin prep Papanicolaou smear with manual screeningon 12-16-2021 Thin prep Papanicolaou smear with manual screening 35 U/L 15-37 [facility] Work Phone: Thin prep Papanicolaou smear with manual screening 7 5-15 [facility] Work Phone: Office Visit ([facility])on 11-25-2021 Follow-up visit Diagnoses/Problems Tinea pedis (110.4) (B35.3) Hyperlipidemia (272.4) (E78.5) ADHD, 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 Here for follow up on ADD and medication. Pt is doing well only complaint today is rash on foot, reports great toenail fungus on the one foot as well did not get bw done yet but intends to med list reviewed Review of Systems Genl: The patient has been in good health without recent weight change, fevers, or night sweats CVS: No chest pain, irregular heartbeat, shortness of breath, or swollen ankles Resp: No cough or difficulty breathing GI: No change in bowel habits or abdominal pain. 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) Anxiety (300.00) (F41.9) Anxiety disorder (300.00) (F41.9) Depression (311) (F32.A) Added by Problem List Migration; 2012-05-21; Moved to [facility] Feb 15 2013 4:11PM Dermatitis (692.9) (L30.9) Encounter for gynecological examination without abnormal finding (V72.31) (Z01.419) 02/18/2008 Encounter for routine gynecological examination with Papanicolaou smear of cervix (V72.31,V76.2) (Z01.419) Encounter for screening for malignant neoplasm of breast (V76.10) (Z12.39) Folliculitis (704.8) (L73.9) Herpes simplex (054.9) (B00.9) Hyperlipidemia (272.4) (E78.5) Impetigo (684) (L01.00) Insomnia (780.52) (G47.00) Memory difficulties (780.93) (R41.3) Rash (782.1) (R21) Screening cholesterol level (V77.91) (Z13.220) Skin lesion (709.9) (L98.9) Sore throat (462) (J02.9) Thyroid disease (246.9) (E07.9) Past Medical History History of Acute upper respiratory infection (465.9) (J06.9) History of Depression with anxiety (300.4) (F41.8) History of Elevated blood pressure reading without diagnosis of hypertension (796.2) (R03.0) History of acute bronchitis (V12.69) (Z87.09) History of acute pharyngitis (V12.69) (Z87.09) History of attention deficit hyperactivity disorder (ADHD) (V11.8) (Z86.59) History of hypertension (V12.59) (Z86.79) History of Irritable mood (799.22) (R45.4) History of Muscular aches (729.1) (M79.10) Personal history of asthma (V12.69) (Z87.09) Surgical History History of Pilonidal cyst removal Family History Family history of dementia (V17.2) (Z81.8) Family history of memory loss (V17.2) (Z82.0) Family history of No Significant Family History Social History Alcohol Use (History) Caffeine Use Marital History - Currently Smoker, current status unknown (305.1) (F17.200) Allergies No Known Allergies Recorded By: Bin De; 03/28/2012 9:14:12 AM Current Meds Medication NameInstructionReason Vyvanse 50 MG Oral CapsuleTAKE 1 CAPSULE DAILY IN THE MORNING.ADHD, predominantly inattentive type buPROPion HCl ER (XL) 300 MG Oral Tablet Extended Release 24 HourTAKE 1 TABLET DAILY.Anxiety disorder Venlafaxine HCl ER 75 MG Oral Capsule Extended Release 24 HourTAKE 3 CAPSULES DAILYAnxiety disorder valACYclovir HCl - 1 GM Oral Tablet2 tabs bid x 1 dayHerpes simplex Atorvastatin Calcium 20 MG Oral TabletTAKE 1 TABLET DAILY.Hyperlipidemia traZODone HCl - 100 MG Oral TabletTAKE 2 TABLETS AT BEDTIME.Insomnia Levothyroxine Sodium 50 MCG Oral TabletTAKE 1 TABLET DAILY. Vitals Vital Signs Recorded: 25Nov2021 09:44AM Ojybooevfnk52.3 F Bogmujxa845 Gspxctqhv65 Ylzjgp079 lb BMI Yristpllvs48.9 kg/m2 BSA Calculated1.85 Tobacco Useb) No Falls Screening (Age 18+)a) No falls within the last year Physical Exam Alert, well-appearing CVS RRR, no murmurs Resp clear Abd soft, NT, no masses or HSM Skin vesicles and erythema along edge of foot/instep, erythema and fine scaling of plantar surface of foot 'Scores and Scales' Signatures Electronically signed by : Joanie Franco MD; Nov 25 2021 2:15PM EST (Author) Normal [facility] Tobacco Screening.on 022 Fall risk assessment a) No falls within the last year [facility] Work Phone: Tobacco use status [facility] b) No M [facility] Work Phone: AMPHETAMINE CONFIRM,URINEon 2021 AMPHETAMINES 2708 ng/mL Normal [facility] Comment on above: Result Comment: Cons istent with use of a drug containing amphetamine. May also reflect metabolism of methamphetamine, when methamphetamine is present. Amphetamine and methamphetamine exist in d- and l-isomeric forms. These forms are not distinguished by this test. Isomeric separation is available separately for an additional charge. INTERPRETIVE INFORMATION: Amphetamines, Urine, Quantitative Methodology: Quantitative Liquid Chromatography-Tandem Mass Spectrometry Positive cutoff: 200 ng/mL unless specified below: Amphetamine 50 ng/mL For medical purposes only; not valid for forensic use. The absence of expected drug(s) and/or drug metabolite(s) may indicate non-compliance, inappropriate timing of specimen collection relative to drug administration, poor drug absorption, diluted/adulterated urine, or limitations of testing. The concentration value must be greater than or equal to the cutoff to be reported as positive. Interpretive questions should be directed to the laboratory. This test was developed and its performance characteristics determined by [facility]. It has not been cleared or approved by the US Food and Drug Administration. This test was performed in a CLIA certified laboratory and is intended for clinical purposes. Performed By: #### A [facility] #### [address] [place] [address] MDA <200 Normal [facility] Comment on above: Performed By: #### A MPC1 #### [facility] [address] [place] [address] MDEA <200 Normal [facility] Comment on above: Performed By: #### A MPC1 #### [facility] [address] [place] [address] MDMA <200 Normal [facility] Comment on above: Performed By: #### A MPC1 #### [facility] [address] [place] [address], [place] [address] METHAMPHETAMINE <200 Normal [facility] Comment on above: Performed By: #### A M[facility]1 #### [facility] [address] [place] [address] PHENTERMINE <200 Normal [facility] Comment on above: Result Comment: Perf ormed By: [facility] [address] [place] [address] Wholesale Manager: Guerda Rodriguez MD Performed By: #### A [facility] #### [facility] [address] [place] [address] DRUG SCREEN,URINE WITH REFLE X TO CONFIRMATIONon 08-26-2021 AMPHETAMINE SCREEN,U Positive Abnormal NEGATIVE [facility] Comment on above: Result Comment: CUTO FF LEVEL: 500 NG/ML Cross-reactivity has been reported with high concentrations of the following drugs: buproprion, chloroquine, chlorpromazine, ephedrine, mephentermine, fenfluramine, phentermine, phenylpropanolamine, pseudoephedrine, and propranolol. Performed By: #### D RUGR #### [facility] [address] [place] [address] BARBITURATES SCREEN,U Negative Normal NEGATIVE [facility] Comment on above: Result Comment: CUTO FF LEVEL: 200 NG/ML Performed By: #### D RUGR #### [facility] [address] [place] [address] BENZODIAZEPINES SCREEN,U Negative Normal NEGATIVE [facility] Comment on above: Result Comment: CUTO FF LEVEL: 200 NG/ML Performed By: #### D RUGR #### [facility] [address] [place] [address] CANNABINOIDS SCREEN,U Negative Normal NEGATIVE [facility] Comment on above: Result Comment: CUTO FF LEVEL: 50 NG/ML Performed By: #### D RUGR #### [facility] [address] [place] [address] COCAINE METABOLITE SCREEN,U Negative Normal NEGATIVE [facility] Comment on above: Result Comment: CUTO FF LEVEL: 150 NG/ML Performed By: #### D RUGR #### [facility] [address] [place] [address] DRUG SCREEN COMMENT SEE BELOW Normal [facility] Comment on above: Result Comment: Drug screen results are presumptive and should not be used to assess compliance with prescribed medication. Definitive confirmatory drug testing has been added to this sample for any positive screen result and will be reported separately. . Toxicology screening results are reported qualitatively. The concentration must be greater than or equal to the cutoff to be reported as positive. The concentration at which the screening test can detect an individual drug or metabolite varies. The absence of expected drug(s) and/or drug metabolite(s) may indicate non-compliance, inappropriate timing of specimen collection relative to drug administration, poor drug absorption, diluted/adulterated urine, or limitations of testing. For medical purposes only; not valid for forensic use. . Interpretive questions should be directed to the laboratory medical directors. Performed By: #### D RUGR #### [facility] [address] [place] [address] FENTANYL SCREEN,URINE Negative Normal NEGATIVE [facility] Comment on above: Result Comment: CUTO FF LEVEL: 1 NG/ML Performed By: #### D RUGR #### [facility] [address] [place] [address] METHADONE SCREEN,U Negative Normal NEGATIVE [facility] Comment on above: Result Comment: CUTO FF LEVEL: 150 NG/ML The metabolite M-shaub-ccjxoxgrgvanwc (LAAM) is not detected by this method in concentrations that would be found in the urine of patients on LAAM therapy. Performed By: #### D RUGR #### [facility] [address] [place] [id number] OPIATES SCREEN,U Negative Normal NEGATIVE [facility] Comment on above: Result Comment: CUTO FF LEVEL: 300 NG/ML The opiate screen does not detect fentanyl, meperidine, or tramadol. Oxycodone is not consistently detected (refer to Oxycodone Screen, Urine result). Performed By: #### D RUGR #### [facility] [address] [place] [id number] OXYCODONE SCREEN,U Negative Normal NEGATIVE [facility] Comment on above: Result Comment: CUTO FF LEVEL: 100 NG/ML This test will accurately detect both oxycodone and oxymorphone. Performed By: #### D RUGR #### [facility] [address] [place] [id number] PCP SCREEN,U Negative Normal NEGATIVE [facility] Comment on above: Result Comment: CUTO FF LEVEL: 25 NG/ML Cross-reactivity has been reported with dextromethorphan. Performed By: #### D RUGR #### [facility] [address] [place] [address] Laboratory - Drug toxicology on 08-25-2021 Amphetamine (U) [Mass/Vol] 2708 ng/mL [facility] Work Phone: Comment on above: Consistent with use of a drug containing amphetamine. May also reflect metabolism of methamphetamine, when methamphetamine is present. Amphetamine and methamphetamine exist in d- and l-isomeric forms. These forms are not distinguished by this test. Isomeric separation is available separately for an additional charge.INTERPRETIVE INFORMATION: Amphetamines, Urine, QuantitativeMethodology: Quantitative Liquid Chromatography-Tandem Mass SpectrometryPositive cutoff: 200 ng/mL unless specified below:Amphetamine 50 ng/mLFor medical purposes only; not valid for forensic use. The absence of expected drug(s) and/or drug metabolite(s) may indicate non-compliance, inappropriate timing of specimen collection relative to drug administration, poor drug absorption, diluted/adulterated urine, or limitations of testing. The concentration value must be greater than or equal to the cutoff to be reported as positive. Interpretive questions should be directed to the laboratory.This test was developed and its performance characteristics determined by [facility]. It has not been cleared or approved by the US Food and Drug Administration. This test was performed in a CLIA certified laboratory and is intended for clinical purposes. Amphetamines Screen Ql (U) Positive Abnormal NEGATIVE [facility] Work Phone: Comment on above: CUTOFF LEVEL: 500 NG /ML Cross-reactivity has been reported with high concentrations of the following drugs: buproprion, chloroquine, chlorpromazine, ephedrine, mephentermine, fenfluramine, phentermine, phenylpropanolamine, pseudoephedrine, and propranolol. Barbiturates Screen Ql (U) Negative NEGATIVE [facility] Work Phone: Comment on above: CUTOFF LEVEL: 200 NG /ML Benzodiazepines Ql (U) Negative NEGATIVE [facility] Work Phone: Comment on above: CUTOFF LEVEL: 200 NG /ML Benzoylecgonine Screen Ql (U) Negative NEGATIVE [facility] Work Phone: Comment on above: CUTOFF LEVEL: 150 NG /ML Cannabinoids Screen Ql (U) Negative NEGATIVE [facility] Work Phone: Comment on above: CUTOFF LEVEL: 50 NG/ ML Methadone Screen Ql (U) Negative NEGATIVE [facility] Work Phone: Comment on above: CUTOFF LEVEL: 150 NG /ML The metabolite A-hodaw-kzkyxmhapkiunn (LAAM) is not detected by this method in concentrations that would be found in the urine of patients on LAAM therapy. Methamphetamine (U) [Mass/Vol] ug/mL [facility] Work Phone: Methylenedioxyamphetamine (U) [Mass/Vol] <200 [facility] Work Phone: Methylenedioxyethylamphet amine (U) [Mass/Vol] <200 [facility] Work Phone: Methylenedioxymethampheta mine (U) [Mass/Vol] <200 -[facility] Work Phone: Opiates Screen Ql (U) Negative NEGATIVE [facility] Work Phone: Comment on above: CUTOFF LEVEL: 300 NG /ML The opiate screen does not detect fentanyl, meperidine, or tramadol. Oxycodone is not consistently detected (refer to Oxycodone Screen, Urine result). oxyCODONE+oxyMORphone Screen Ql (U) Negative NEGATIVE [facility] Work Phone: Comment on above: CUTOFF LEVEL: 100 NG /ML This test will accurately detect both oxycodone and oxymorphone. Phencyclidine Ql (U) Negative NEGATIVE [facility] Work Phone: Comment on above: CUTOFF LEVEL: 25 NG/ ML Cross-reactivity has been reported with dextromethorphan. Phentermine Confirm (U) [Mass/Vol] <200 [facility] Work Phone: Comment on above: Performed By: SHASHANK [address] [address] Director: Guerda Rodriguez MD No Panel Informationon 08-25 Negative NEGATIVE [facility] Work Phone: Comment on above: CUTOFF LEVEL: 1 NG/M L SEE BELOW [facility] Work Phone: Comment on above: Drug screen results are presumptive and should not be used to assess compliance with prescribed medication. Definitive confirmatory drug testing has been added to this sample for any positive screen result and will be reported separately. .Toxicology screening results are reported qualitatively. The concentration must be greater than or equal to the cutoff to be reported as positive. The concentration at which the screening test can detect an individual drug or metabolite varies. The absence of expected drug(s) and/or drug metabolite(s) may indicate non-compliance, inappropriate timing of specimen collection relative to drug administration, poor drug absorption, diluted/adulterated urine, or limitations of testing. For medical purposes only; not valid for forensic use. .Interpretive questions should be directed to the laboratory medical directors. 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) Anxiety disorder (300.00) (F41.9) Depression (311) (F32.A) Added by Problem List Migration; 2012-05-21; Moved to [facility] Feb 15 2013 4:11PM Hyperlipidemia (272.4) (E78.5) Orders ADHD, predominantly inattentive type Renew: Vyvanse 50 MG Oral Capsule; TAKE 1 CAPSULE DAILY IN THE MORNING Anxiety disorder Renew: buPROPion HCl ER (XL) 300 MG Oral Tablet Extended Release 24 Hour; TAKE 1 TABLET DAILY last appt-06/07/20 next appt-09/06/20 last BW-05/05/20 [facility] 06/18/20 Renew: Venlafaxine HCl ER 75 MG Oral Capsule Extended Release 24 Hour; TAKE 3 CAPSULES DAILY last appt-06/07/20 next appt-09/06/20 last BW-05/05/20 [facility] 06/18/20 Health Maintenance Drug Screen, Urine With Reflex To Confirmation; Status:Active; Requested for:25Aug2021; Hyperlipidemia Renew: Atorvastatin Calcium 20 MG Oral Tablet; TAKE 1 TABLET DAILY last appt-09/17/20 next appt-03/15/21 last BW-07/28/20 [facility] 01/26/21 last appt-06/07/20 next appt-09/06/20 last BW-07/28/20 [facility] 08/06/20 Insomnia Renew: traZODone HCl - 100 MG Oral Tablet; TAKE 2 TABLETS AT BEDTIME Patient Discussion/Summary By signing my name below, I, Peyton Muhammad, attest that this documentation has been prepared under the direction and in the presence of Dr. Joanie Franco MD. All medical record entries made by the Sisiibe were at my direction and personally dictated by me. I have reviewed the chart and agree that the record accurately reflects my personal performance of the history, physical exam, discussion and plan. Provider Impressions I have personally reviewed the OARRS report. This report is scanned into the electronic medical record. I have considered the risks of abuse, dependence, addiction and diversion. I believe that it is clinically appropriate for this medication to be prescribed. History of Present Illness EP. Here for follow up and medication. Bin is a 40 year old female presenting today for a routine follow up and medication check. -She has been feeling fatigued a lot lately, but is otherwise feeling well. -Concerned about not being able to lose weight. -Compliant with all of her current medications and regimens. -Does not eat much red meat. Review of Systems Genl: The patient has been in good health without recent weight change, fevers, or night sweats CVS: No chest pain, irregular heartbeat, shortness of breath, or swollen ankles Resp: No cough or difficulty breathing GI: No change in bowel habits or abdominal pain. No heartburn : No urinary problems. 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) Anxiety (300.00) (F41.9) Anxiety disorder (300.00) (F41.9) Depression (311) (F32.A) Added by Problem List Migration; 2012-05-21; Moved to [facility] Feb 15 2013 4:11PM Dermatitis (692.9) (L30.9) Encounter for gynecological examination without abnormal finding (V72.31) (Z01.419) 02/18/2008 Encounter for routine gynecological examination with Papanicolaou smear of cervix (V72.31,V76.2) (Z01.419) Encounter for screening for malignant neoplasm of breast (V76.10) (Z12.39) Folliculitis (704.8) (L73.9) Herpes simplex (054.9) (B00.9) Hyperlipidemia (272.4) (E78.5) Impetigo (684) (L01.00) Insomnia (780.52) (G47.00) Memory difficulties (780.93) (R41.3) Rash (782.1) (R21) Screening cholesterol level (V77.91) (Z13.220) Skin lesion (709.9) (L98.9) Sore throat (462) (J02.9) Thyroid disease (246.9) (E07.9) Past Medical History History of Acute upper respiratory infection (465.9) (J06.9) History of Depression with anxiety (300.4) (F41.8) History of Elevated blood pressure reading without diagnosis of hypertension (796.2) (R03.0) History of acute bronchitis (V12.69) (Z87.09) History of acute pharyngitis (V12.69) (Z87.09) History of attention deficit hyperactivity disorder (ADHD) (V11.8) (Z86.59) History of hypertension (V12.59) (Z86.79) History of Irritable mood (799.22) (R45.4) History of Muscular aches (729.1) (M79.10) Personal history of asthma (V12.69) (Z87.09) Surgical History History of Pilonidal cyst removal Family History Family history of dementia (V17.2) (Z81.8) Family history of memory loss (V17.2) (Z82.0) Family history of No Significant Family History Social History Alcohol Use (History) Caffeine Use Marital History - Currently Smoker, current status unknown (305.1) (F17.200) Allergies No Known Allergies Recorded By: Bin De; 03/28/2012 9:14:12 AM Current Meds Medication NameInstructionReason Vyvanse 50 MG Oral CapsuleTAKE 1 CAPSULE DAILY IN THE MORNING.ADHD, predominantly inattentive type buPROPion HCl ER (XL) 300 MG Oral Tablet Extended Release 24 HourTAKE 1 TABLET DAILY.Anxiety disorder Venlafaxine HCl ER 75 MG Oral Capsule Extended Release 24 HourTAKE 3 CAPSULES DAILYAnxiety disorder valACYclovi (more content not included)... Normal [employer] Tobacco Screening.on 022 Tobacco use status CPHS b) No [facility] Work Phone: Absolute lymphocyte counton 08-18-2021 Lymphocytes Auto (Unsp spec) [#/Vol] 3.63 10*3/uL 0.83-4.51 [facility] Work Phone: Basophil percentageon 2021 Basophils/100 WBC (Bld) 0.4 % 0-1 [facility] Work Phone: Bilirubin [Mass/Vol] 0.40 mg/dL 0.20-1.00 [facility] Work Phone: [phone] Comment on above: For patients on eltr ombopag therapy, use of Dimension [place] TBIL is not recommended. Chloride [Moles/Vol] 103 mmol/L 98-107 [facility] Work Phone: [phone] Cholesterol [Mass/Vol] 218 mg/dL <200 [facility] Work Phone: [phone] Comment on above: <200 mg/dL Desirable 200-240 mg/dL Borderline >240 mg/dL High Risk Eosinophils/100 WBC (Bld) 1.3 % 0-5 [facility] Work Phone: Glucose [Mass/Vol] 90 mg/dL 74-106 [facility] Work Phone: Neutrophils (Bld) [#/Vol] 8.2 10*3/uL 2.0-7.7 [facility] Work Phone: [phone] Neutrophils/100 WBC (Bld) 64.5 % 47-70 [facility] Work Phone: Potassium [Moles/Vol] 3.8 mmol/L 3.5-5.1 [facility] Work Phone: [phone] Protein [Mass/Vol] 8.0 g/dL 6.4-8.2 [facility] Work Phone: Sodium [Moles/Vol] 138 mmol/L 136-145 [facility] Work Phone: Triglyceride [Mass/Vol] 167 mg/dL <199 [facility] Work Phone: Comment on above: The drugs N-Acetylcy steine and Metamizole may falsely depress this assay.Serum Triglycerides Reference Interval Normal <150 mg/dL Borderline high 150 - 199 mg/dL High 200 - 499 mg/dL Very High > or = 500 mg/dL WBC (Bld) [#/Vol] 12.7 10*3/uL 4.4-11.0 [facility] Work Phone: Blood erythrocytes count (nu mber/volume)on 08-18-2021 RBC (Bld) [#/Vol] 5.16 10*6/uL 4.2-5.4 [facility] Work Phone: Blood hemoglobin measurement (mass/volume)on 08-18-2021 Hemoglobin (Bld) [Mass/Vol] 15.8 g/dL 12.0-15.0 [facility] Work Phone: Blood lymphocytes/100 leukoc yteson 08-18-2021 Lymphocytes/100 WBC (Bld) 28.7 % 19-41 [facility] Work Phone: Blood monocytes/100 leukocyt eson 08-18-2021 Monocytes/100 WBC (Bld) 4.7 % 0-10 [facility] Work Phone: Blood platelet mean volumeon 08-18-2021 Platelet mean volume (Bld) [Entitic vol] 10.3 fL 6.2-12.0 [facility] Work Phone: [phone] Determination of erythrocyte mean corpuscular volume (MCV)on 08-18-2021 MCV (RBC) [Entitic vol] 89.9 fL 81-99 [facility] Work Phone: Hematocrit Auto (Bld) [Volum e fraction]on 08-18-2021 Hematocrit (Bld) [Volume fraction] 46.4 % 37-47 [facility] Work Phone: Laboratory - Chemistry and C hemistry - challengeon 08-18-2021 ALP [Catalytic activity/Vol] 80 U/L 45-117 [facility] Work Phone: ALT [Catalytic activity/Vol] 48 U/L 13-56 [facility] Work Phone: CO2 [Moles/Vol] 28.0 mmol/L 21.0-32.0 [facility] Work Phone: Globulin (S) [Mass/Vol] 3.9 g/dL 2.2-4.2 [facility] Work Phone: Urea nitrogen/Creatinine [Mass ratio] 12.1 mg/mg 10-20 [facility] Work Phone: Laboratory - Hematology and Cell countson 08-18-2021 Erythrocyte distribution width (RBC) [Entitic vol] 44.2 fL 35.1-43.9 [facility] Work Phone: Erythrocyte distribution width (RBC) [Ratio] 13.4 % 11.6-14.6 [facility] Work Phone: Immature granulocytes/100 WBC (Bld) 0.400 % 0.0-0.9 [facility] Work Phone: Comment on above: IG% - Immature Granu locytes (promyelocytes, myelocytes and metamyelocytes) > 1% indicates that a LEFT SHIFT is Present. MCH (RBC) [Entitic mass] 30.6 pg 27.0-32.0 [facility] Work Phone: Nucleated RBC/100 WBC (Bld) [Ratio] 0 % 0-5 [facility] Work Phone: MCHC Auto (RBC) [Mass/Vol]on 08-18-2021 MCHC (RBC) [Mass/Vol] 34.1 g/dL 32-36 [facility] Work Phone: No Panel Informationon 08-18 Estimated GFR (MDRD) Amer 79 mL/min >60 [facility] Work Phone: Comment on above: GFR Calc Estimated GFR (MDRD) Non-Af Amer 65 mL/min >60 [facility] Work Phone: Comment on above: Non- GFR Calc Thyroid Stimulating Hormone (TSH) 1.60 uIU/mL 0.358-3.74 [facility] Work Phone: Platelets bldon 08-18-2021 Platelets (Bld) [#/Vol] 347 10*3/uL 150-450 [facility] Work Phone: Serum Liam Payton virus cap saqib IgG antibody assay (units/volume)on 08-18-2021 EBV capsid IgG Qn (S) 127.0 [arb'U]/mL 0.0-17.9 [facility] Work Phone: Comment on above: Negative <18.0 Equiv ocal 18.0 - 21.9 Positive >21.9 Serum Liam Payton virus cap saqib IgM antibody assay (units/volume)on 08-18-2021 EBV capsid IgM Qn (S) [arb'U]/mL 0.0-35.9 [facility] Work Phone: Comment on above: Negative <36.0 Equiv ocal 36.0 - 43.9 Positive >43.9 Serum Liam Payton virus nuc lear IgG antibody assay (units/volume)on 08-18-2021 EBV nuclear IgG Qn (S) > 600.0 U/mL 0.0-17.9 [facility] Work Phone: Comment on above: Negative <18.0 Equiv ocal 18.0 - 21.9 Positive >21.9 Serum or plasma albumin raven urement (mass/volume)on 08-18-2021 Albumin [Mass/Vol] 4.1 g/dL 3.2-5.0 [facility] Work Phone: Serum or plasma albumin/glob ulin mass ratioon 08-18-2021 Albumin/Globulin [Mass ratio] 1.1 {ratio} 0.9-2.4 [facility] Work Phone: Serum or plasma calcium raven urement (mass/volume)on 08-18-2021 Calcium [Mass/Vol] 10.5 mg/dL 8.5-10.1 [facility] Work Phone: Serum or plasma cholesterol in HDL measurement (mass/volume)on 08-18-2021 Cholesterol in HDL [Mass/Vol] 49 mg/dL >40 [facility] Work Phone: Comment on above: The drugs N-Acetylcy steine and Metamizole may falsely depress this assay. Reference Range HDL <40 mg/dL Low HDL Cholesterol HDL >or= 60 mg/dL High HDL Cholesterol Serum or plasma cholesterol in VLDL measurement (mass/volume)on 08-18-2021 Cholesterol in VLDL [Mass/Vol] 33 mg/dL 5-40 [facility] Work Phone: Serum or plasma creatinine m easurement (mass/volume)on 08-18-2021 Creatinine [Mass/Vol] 0.99 mg/dL 0.55-1.02 [facility] Work Phone: Comment on above: The validity of the calculated GFR & GFRAA in patients over 70 years has not been determined. Clinical correlation is essential. Serum or plasma low density lipoprotein (LDL) cholesterol measurement (mass/volume)on 08-18-2021 Cholesterol in LDL [Mass/Vol] 136 mg/dL 0-130 [facility] Work Phone: Serum or plasma urea nitroge n measurement (mass/volume)on 08-18-2021 Urea nitrogen [Mass/Vol] 12 mg/dL 7-18 [facility] Work Phone: Thin prep Papanicolaou smear with manual screeningon 08-18-2021 Thin prep Papanicolaou smear with manual screening 21 U/L 15-37 [facility] Work Phone: Thin prep Papanicolaou smear with manual screening 7 5-15 [facility] Work Phone: Thin prep Papanicolaou smear with manual screening Comment . [facility] Work Phone: Comment on above: EBV Interpretation Zachary Av: Antibody Present + Antibody Absent -Interpretation VCA-IgM VCA-IgG EBNA-IgGNo previous infection/ - - -SusceptiblePrimary infection (new + + -or recent)Past Infection +or- + +See comment below* + - -*Results indicate infection with EBV at some time however cannot predict the timing of the infection since antibodies to EBNA usually develop after primary infection or, alternatively, approximately 5-10% of patients with EBV never develop antibodies to EBNA.Performed at: [facility] [employer] [id number] Director: Michael Arevalo PhD, Phone: [phone] Absolute lymphocyte counton 05-24-2021 Lymphocytes Auto (Unsp spec) [#/Vol] 3.35 10*3/uL 0.83-4.51 [facility] Work Phone: Basophil percentageon 2021 Basophils/100 WBC (Bld) 0.3 % 0-1 [facility] Work Phone: Chloride [Moles/Vol] 110 mmol/L 98-107 [facility] Work Phone: Eosinophils/100 WBC (Bld) 2.6 % 0-5 [facility] Work Phone: Glucose [Mass/Vol] 128 mg/dL 74-106 [facility] Work Phone: Comment on above: Fasting Glucose resu lt greater than or equal to 126 mg/dL suggests DIABETES MELLITUS per A.D.A. criteria. Neutrophils (Bld) [#/Vol] 7.4 10*3/uL 2.0-7.7 [facility] Work Phone: Neutrophils/100 WBC (Bld) 63.1 % 47-70 [facility] Work Phone: Potassium [Moles/Vol] 3.6 mmol/L 3.5-5.1 [facility] Work Phone: Sodium [Moles/Vol] 140 mmol/L 136-145 [facility] Work Phone: WBC (Bld) [#/Vol] 11.7 10*3/uL 4.4-11.0 [facility] Work Phone: Blood erythrocytes count (nu mber/volume)on 05-24-2021 RBC (Bld) [#/Vol] 5.05 10*6/uL 4.2-5.4 [facility] Work Phone: Blood hemoglobin measurement (mass/volume)on 05-24-2021 Hemoglobin (Bld) [Mass/Vol] 15.3 g/dL 12.0-15.0 [facility] Work Phone: Blood lymphocytes/100 leukoc yteson 05-24-2021 Lymphocytes/100 WBC (Bld) 28.6 % 19-41 [facility] Work Phone: Blood monocytes/100 leukocyt eson 05-24-2021 Monocytes/100 WBC (Bld) 4.8 % 0-10 [facility] Work Phone: Blood platelet mean volumeon 05-24-2021 Platelet mean volume (Bld) [Entitic vol] 9.3 fL 6.2-12.0 [facility] Work Phone: Determination of erythrocyte mean corpuscular volume (MCV)on 05-24-2021 MCV (RBC) [Entitic vol] 89.7 fL 81-99 [facility] Work Phone: Hematocrit Auto (Bld) [Volum e fraction]on 05-24-2021 Hematocrit (Bld) [Volume fraction] 45.3 % 37-47 [facility] Work Phone: Laboratory - Chemistry and C hemistry - challengeon 05-24-2021 CO2 [Moles/Vol] 25.0 mmol/L 21.0-32.0 [facility] Work Phone: Urea nitrogen/Creatinine [Mass ratio] 7.4 mg/mg 10-20 [facility] Work Phone: Laboratory - Hematology and Cell countson 05-24-2021 Erythrocyte distribution width (RBC) [Entitic vol] 45.1 fL 35.1-43.9 [facility] Work Phone: Erythrocyte distribution width (RBC) [Ratio] 13.9 % 11.6-14.6 [facility] Work Phone: Immature granulocytes/100 WBC (Bld) 0.600 % 0.0-0.9 [facility] Work Phone: Comment on above: IG% - Immature Granu locytes (promyelocytes, myelocytes and metamyelocytes) > 1% indicates that a LEFT SHIFT is Present. MCH (RBC) [Entitic mass] 30.3 pg 27.0-32.0 [facility] Work Phone: Nucleated RBC/100 WBC (Bld) [Ratio] 0 % 0-5 [facility] Work Phone: Laboratory - Microbiology an d Antimicrobial susceptibilityon 05-24-2021 SARS-CoV-2 (COVID-19) RNA SHAISTA+probe Ql (Unsp spec) Detected Not Detect [facility] Work Phone: Comment on above: Normal Reference Ran ge: Not DetectedMethod:(RT-PCR) real-time reverse transcriptase PCRLuminex AUSTEN Instrument*The Food and Drug Administration (FDA) has issued an Emergency Use Authorization (EAU) for the AUSTEN SARS-CoV-2 Assay for the rapid detection of the virus that causes COVID-19. This test has been validated, but the FDAs independent review of this validation is pending.*Negative results do not preclude infection and should not be used as the sole basis for treatment or patient management. Optimum specimen types and timing for peak viral levels during infections caused by SARS-CoV-2 have not been determined. Collection of multiple specimens from the same patient may be necessary to detect the virus. The possibility of a false negative result should be considered if the patient has clinical presentation or has had recent exposure. MCHC Auto (RBC) [Mass/Vol]on 05-24-2021 MCHC (RBC) [Mass/Vol] 33.8 g/dL 32-36 [facility] Work Phone: No Panel Informationon 05-24 D-Dimer Quantitative (PE/DVT) < 0.27 FEU/ug/m 0.27-0.49 [facility] Work Phone: Comment on above: NORMAL D-Dimer level (<0.50) indicates no DVT or PE. Estimated Creatinine Clearance Calc 58.83 ml/min [facility] Work Phone: Estimated GFR (MDRD) Amer 83 mL/min >60 [facility] Work Phone: Comment on above: GFR Calc Estimated GFR (MDRD) Non-Af Amer 69 mL/min >60 [facility] Work Phone: Comment on above: Non- GFR Calc Platelets bldon 05-24-2021 Platelets (Bld) [#/Vol] 350 10*3/uL 150-450 [facility] Work Phone: Serum or plasma calcium raven urement (mass/volume)on 05-24-2021 Calcium [Mass/Vol] 9.9 mg/dL 8.5-10.1 [facility] Work Phone: Serum or plasma creatinine m easurement (mass/volume)on 05-24-2021 Creatinine [Mass/Vol] 0.94 mg/dL 0.55-1.02 [facility] Work Phone: Comment on above: The validity of the calculated GFR & GFRAA in patients over 70 years has not been determined. Clinical correlation is essential. Serum or plasma urea nitroge n measurement (mass/volume)on 05-24-2021 Urea nitrogen [Mass/Vol] 7 mg/dL 7-18 [facility] Work Phone: Thin prep Papanicolaou smear with manual screeningon 05-24-2021 Thin prep Papanicolaou smear with manual screening 5 5-15 [facility] Work Phone: Tobacco Screening.on 021 Tobacco use status CPHS b) No [facility] Work Phone: Tobacco Screening.on 021 Tobacco use status CPHS b) No [facility] Work Phone: Microbiology: Culture, Deep Woundon 10-24-2016 GE use only - for [employer] import when terms are not otherwise specified . Invalid Interpretation Code [facility] Work Phone: [phone] Microbiology: Fungus Stainon 10-17-2016 fungus stain . Invalid Interpretation Code [facility] Work Phone: [phone] FUNST . [facility] Work Phone: [phone] Microbiology: (P) Culture, D eep Woundon 10-16-2016 [facility] Wound CultureNo grow th aerobically. [facility] Work Phone: [phone] Lab Report: Basic Metabolic Profile (BMP)on 10-14-2016 Anion gap 6 mmol/L Invalid Interpretation Code 5-15 [facility] Work Phone: [phone] Anion gap molar conc 6 mmol/L 5-[address] [facility] Work Phone: [phone] Calcium mass conc 9.3 mg/dL Invalid Interpretation Code 8.5-10.1 [facility] Work Phone: [phone] Chloride molar conc 107 mmol/L Invalid Interpretation Code 98-107 [facility] Work Phone: [phone] CO2 30.0 mmol/L Invalid Interpretation Code 21.0-32.0 [facility] Work Phone: [phone] CO2 ppres (BldV) 30.0 mmol/L 21.0-32.0 [facility] Work Phone: [phone] Creatinine 80.44 mL/min Invalid Interpretation Code [facility] Work Phone: [phone] Creatinine mass conc 0.75 mg/dL Invalid Interpretation Code 0.55-1.02 [facility] Work Phone: [phone] eGFR (non-black) 111 mL/min/{1.73_m2} Invalid Interpretation Code >60 [facility] Work Phone: [phone] EST GFR - AA 111 mL/min >60 [facility] Work Phone: [phone] GFR/1.73 sq M predicted among non-blacks MDRD vol rate/area (S/P/Bld) 91 mL/min/{1.73_m2} Invalid Interpretation Code >60 [facility] Work Phone: [phone] Glucose 105 mg/dL Invalid Interpretation Code 70-110 [facility] Work Phone: [phone] Glucose mass conc 105 mg/dL 70-110 [facility] Work Phone: [phone] Potassium molar conc 4.1 mmol/L Invalid Interpretation Code 3.5-5.1 [facility] Work Phone: [phone] Sodium molar conc 143 mmol/L Invalid Interpretation Code 136-145 [facility] Work Phone: [phone] Urea nitrogen mass conc 13 mg/dL Invalid Interpretation Code 7-18 [facility] Work Phone: [phone] Urea nitrogen/Creatinine mass ratio 17.2 RATIO Invalid Interpretation Code 10-20 [facility] Work Phone: [phone] Lab Report: CBC-Complete Blo od Cnt No Diffon 10-14-2016 Erythrocyte distribution width Ratio (RBC) 13.6 % 11.6-14.6 [facility] Work Phone: [phone] Erythrocyte distribution width Ratio (RBC) 45.1 fL High 35.1-43.9 [facility] Work Phone: [phone] Erythrocytes (RBC) 4.28 10*6/uL Invalid Interpretation Code 4.2-5.4 [facility] Work Phone: [phone] Hematocrit (HCT) 39.4 % Invalid Interpretation Code 37-47 [facility] Work Phone: [phone] Hematocrit Volume Fraction (Bld) 39.4 % 37-47 [facility] Work Phone: [phone] Hemoglobin mass conc (Bld) 13.2 g/dL Invalid Interpretation Code 12.0-15.0 [facility] Work Phone: [phone] MCH 30.8 pg Invalid Interpretation Code 27.0-32.0 [facility] Work Phone: [phone] MCH Entitic mass (RBC) 30.8 pg 27.0-32.0 [facility] Work Phone: [phone] MCHC 33.5 G/GL Invalid Interpretation Code 32-36 [facility] Work Phone: [phone] MCHC mass conc (RBC) 33.5 G/GL 32-[address] [facility] Work Phone: [phone] MCV 92.1 fL Invalid Interpretation Code 81-99 [facility] Work Phone: [phone] MCV Entitic volume (RBC) 92.1 fL 81-99 [facility] Work Phone: [phone] Platelet mean volume Entitic volume (Bld) 9.7 fL 6.2-12.0 [facility] Work Phone: [phone] Platelets 275 10*3/mm3 Invalid Interpretation Code 150-450 [facility] Work Phone: [phone] Platelets #/vol (Bld) 275 10*3/mm3 150-450 [facility] Work Phone: [phone] PMV by Jose G 9.7 fL Invalid Interpretation Code 6.2-12.0 [facility] Work Phone: [phone] RBC #/vol (Bld) 4.28 10*6/uL 4.2-5.4 [facility] Work Phone: [phone] RDW-CA 13.6 % Invalid Interpretation Code 11.6-14.6 [facility] Work Phone: [phone] red blood cell distribution width, size density 45.1 fL High 35.1-43.9 [facility] Work Phone: [phone] WBC #/vol (Bld) 11.7 10*3/uL High 4.4-11.0 [facility] Work Phone: [phone] WBC (Leukocytes) 11.7 10*3/uL High 4.4-11.0 [facility] Work Phone: [phone] Lab Report: Prealbuminon Prealbumin 28.0 mg/dL Invalid Interpretation Code 20.0-40.0 [facility] Work Phone: [phone] Prealbumin Elph mass conc 28.0 mg/dL 20.0-40.0 [facility] Work Phone: [phone] Microbiology: (P) Culture, D eep Woundon 10-14-2016 [facility] Cult, AnaerobicChecking for anaerobes, further studies to follow. [facility] Work Phone: [phone] Bacteria identified Cx Nom ( Wound) Wound Culture Staphylococcus aureus [facility] Work Phone: Gram stain for investigation of transfusion reaction Microscopic observation Gram stain Nom (Unsp spec) [facility] Work Phone: Vital Signs Date Time Vital Sign Value Performing Clinician Facility 08-14-2024 19:17-0400 Body height 160.02 cm Varsha Beth [employer] Work Phone: [facility] 06-05-2024 22:06-0400 Body height 160.02 cm Varsha Beth [employer] TE[employer]C Work Phone: [facility] 12-06-2023 12:17-0400 Body mass index (BMI) [Ratio] 34.58 kg/m2 Joanie Franco MD Work Phone: [facility] 12-06-2023 12:17-0400 Body temperature 98.4 [degF] Joanie Franco MD Work Phone: [facility] 12-06-2023 12:17-0400 Body weight 83.01 kg Joanie Franco MD Work Phone: [facility] 12-06-2023 12:17-0400 Diastolic blood pressure 82 mm[Hg] Joanie Franco MD Work Phone: [facility] 12-06-2023 12:17-0400 Heart rate 71 /min Joanie Franco MD Work Phone: [facility] 12-06-2023 12:17-0400 SaO2% (BldA) [Mass fraction] 97 % Joanie Franco MD Work Phone: [facility] 12-06-2023 12:17-0400 Systolic blood pressure 124 mm[Hg] Joanie Franco MD Work Phone: [facility] 08-13-2023 11:19-0400 Body mass index (BMI) [Ratio] 35.9 kg/m2 Joanie Franco MD Work Phone: [facility] 08-13-2023 11:19-0400 Body temperature 98.29 [degF] Joanie Franco MD Work Phone: [facility] 08-13-2023 11:19-0400 Body weight 86.18 kg Joanie Franco MD Work Phone: [facility] 08-13-2023 11:19-0400 Diastolic blood pressure 84 mm[Hg] Joanie Franco MD Work Phone: [phone] [place] [address] 08-13-2023 11:19-0400 Heart rate 84 /min Joanie Franco MD Work Phone: [phone] [place] [address] 08-13-2023 11:19-0400 SaO2% (BldA) [Mass fraction] 98 % Joanie Franco MD Work Phone: [facility] 08-13-2023 11:19-0400 Systolic blood pressure 130 mm[Hg] Joanie Franco MD Work Phone: [facility] 05-14-2023 11:31-0500 Body mass index (BMI) [Ratio] 35.71 kg/m2 Joanie Farnco MD Work Phone: [phone])317-466038 [place] [address] 05-14-2023 11:31-0500 Body temperature 97.81 [degF] Joanie Franco MD Work Phone: [phone])[phone] [place] [address] 05-14-2023 11:31-0500 Body weight 85.73 kg Joanie Franco MD Work Phone: [phone])410-231638 [place] [address] 05-14-2023 11:31-0500 Diastolic blood pressure 82 mm[Hg] Joanie Franco MD Work Phone: [phone])280-515538 [place] [address] 05-14-2023 11:31-0500 Heart rate 78 /min Joanie Franco MD Work Phone: [facility] 05-14-2023 11:31-0500 SaO2% (BldA) [Mass fraction] 97 % Joanie Franco MD Work Phone: [facility] 05-14-2023 11:31-0500 Systolic blood pressure 124 mm[Hg] Joanie Franco MD Work Phone: [phone] [place] [address] 02-12-2023 11:28-0500 Body mass index (BMI) [Ratio] 35.14 kg/m2 Joanie Franco MD Work Phone: [phone] [place] [address] 02-12-2023 11:28-0500 Body temperature 98.4 [degF] Joanie Franco MD Work Phone: 0([phone] [place] [address] 02-12-2023 11:28-0500 Body weight 84.37 kg Joanie Franco MD Work Phone: 6([phone])534-548066 [place] [address] 02-12-2023 11:28-0500 Diastolic blood pressure 74 mm[Hg] Joanie Franco MD Work Phone: [phone])443-732966 [place] [address] 02-12-2023 11:28-0500 Systolic blood pressure 122 mm[Hg] Joanie Franco MD Work Phone: 2([phone] [place] [address] 02-09-2023 18:17-0500 Body height 160.02 cm [facility] 11-07-2022 12:17-0400 Body mass index (BMI) [Ratio] 32.88 kg/m2 Joanie Franco MD Work Phone: [phone])100-152638 [place] [address] 11-07-2022 12:17-0400 Body temperature 98.4 [degF] Joanie Franco MD Work Phone: 8([phone])434-452038 [place] [address] 11-07-2022 12:17-0400 Body weight 78.93 kg Joanie Franco MD Work Phone: [phone])445-467438 [place] [address] 11-07-2022 12:17-0400 Diastolic blood pressure 82 mm[Hg] Joanie Franco MD Work Phone: [facility] 11-07-2022 12:17-0400 Systolic blood pressure 126 mm[Hg] Joanie Franco MD Work Phone: [facility] 11-02-2022 19:34-0400 Body mass index (BMI) [Ratio] 30.6 kg/m2 [facility] 11-02-2022 19:34-0400 Body weight 78.47 kg [facility] 07-27-2022 12:05-0400 Body mass index (BMI) [Ratio] 34.96 kg/m2 Joanie Franco MD Work Phone: [facility] 07-27-2022 12:05-040 Body temperature 97.5 [degF] Joanie Franco MD Work Phone: [facility] 07-27-2022 12:05-0400 Body weight 83.92 kg Joanie Franco MD Work Phone: [facility] 07-27-2022 12:05-0400 Diastolic blood pressure 84 mm[Hg] Joanie Franco MD Work Phone: [facility] 07-27-2022 12:05-0400 Systolic blood pressure 124 mm[Hg] Joanie Franco MD Work Phone: [facility] 07-25-2022 19:05-0400 Body height 160.02 cm [facility] 04-14-2022 18:53-0500 Body height 160.02 cm [facility] 04-07-2022 20:19-0500 Diastolic blood pressure 88 mm[Hg] [facility] 04-07-2022 20:19-0500 Heart rate 74 /min [facility] 04-07-2022 20:19-0500 SaO2% (BldA) [Mass fraction] 97 % [facility] 04-07-2022 20:19-0500 Systolic blood pressure 146 mm[Hg] [facility] 04-07-2022 18:46-0500 Body height 160.02 cm [facility] Work Phone: 04-07-2022 18:46-0500 Body mass index (BMI) [Ratio] 35.7 kg/m2 [facility] 04-07-2022 18:46-0500 Body temperature 96.1 [degF] [facility] 04-07-2022 18:46-0500 Body weight 91.6 kg [facility] 04-07-2022 18:46-0500 Respiratory rate 28 /min [facility] 12-16-2021 16:57-0400 Body height 160.02 cm [facility] Work Phone: 11-25-2021 09:44-0400 Body mass index (BMI) [Ratio] 35.9 kg/m2 Joanie Franco Work Phone: [facility] Work Phone: 11-25-2021 09:44-0400 Body surface area Derived from formula 1.85 m2 Joanie Franco Work Phone: [facility] Work Phone: 11-25-2021 09:44-0400 Body temperature 98.3 [degF] Joanie Nicert Work Phone: [facility] Work Phone: 11-25-2021 09:44-0400 Body weight 86.18 kg Joanie Nicert Work Phone: [facility] Work Phone: 11-25-2021 09:44-0400 Diastolic blood pressure 84 mm[Hg] Joanie Zacarias Salvador Work Phone: [facility] Work Phone: 11-25-2021 09:44-0400 Systolic blood pressure 130 mm[Hg] Joanie Zacarias Salvador Work Phone: [facility] Work Phone: 10-31-2021 12:22-0400 Body height 160.02 cm [facility] Work Phone: 08-25-2021 10:51-0400 Body mass index (BMI) [Ratio] 35.9 kg/m2 Joanie Franco Work Phone: [facility] Work Phone: 08-25-2021 10:51-0400 Body surface area Derived from formula 1.85 m2 Joanie Franco Work Phone: [facility] Work Phone: 08-25-2021 10:51-0400 Body temperature 98.5 [degF] Joanie Franco Work Phone: [facility] Work Phone: 08-25-2021 10:51-0400 Body weight 86.18 kg Joanie Franco Work Phone: [facility] Work Phone: 08-25-2021 10:51-0400 Diastolic blood pressure 88 mm[Hg] Joanie Franco Work Phone: [facility] Work Phone: 08-25-2021 10:51-0400 Systolic blood pressure 128 mm[Hg] Joanie Franco Work Phone: [facility] Work Phone: 08-18-2021 19:21-0400 Body height 160.02 cm [facility] Work Phone: 05-24-2021 15:07-0500 Diastolic blood pressure 74 mm[Hg] [facility] Work Phone: 05-24-2021 15:07-0500 Heart rate 71 /min [facility] Work Phone: 05-24-2021 15:07-0500 Respiratory rate 16 /min [facility] Work Phone: 05-24-2021 15:07-0500 SaO2% (BldA) [Mass fraction] 97 % [facility] Work Phone: 05-24-2021 15:07-0500 Systolic blood pressure 138 mm[Hg] [facility] Work Phone: 05-24-2021 13:17-0500 Body mass index (BMI) [Ratio] 35.9 kg/m2 [facility] Work Phone: 05-24-2021 13:17-0500 Body temperature 97.2 [degF] [facility] Work Phone: 05-24-2021 13:17-0500 Body weight 86.18 kg [facility] Work Phone: 03-15-2021 16:02-0500 Body mass index (BMI) [Ratio] 36.85 kg/m2 Joanie Franco Work Phone: [facility] Work Phone: 03-15-2021 16:02-0500 Body surface area Derived from formula 1.87 m2 Joanie Franco Work Phone: [facility] Work Phone: 03-15-2021 16:02-0500 Body temperature 98.2 [degF] Joanie Franco Work Phone: [facility] Work Phone: 03-15-2021 16:02-0500 Body weight 88.45 kg Joanie Franco Work Phone: [facility] Work Phone: 03-15-2021 16:02-0500 Diastolic blood pressure 82 mm[Hg] Joanie Franco Work Phone: [facility] Work Phone: 03-15-2021 16:02-0500 Systolic blood pressure 124 mm[Hg] Joanie Nicert Work Phone: [facility] Work Phone: 09-17-2020 15:36-0400 Body mass index (BMI) [Ratio] 34.77 kg/m2 Joanie Nicert Work Phone: [facility] Work Phone: 09-17-2020 15:36-0400 Body surface area Derived from formula 1.82 m2 Joanie Franco Work Phone: [facility] Work Phone: 09-17-2020 15:36-0400 Body temperature 98.4 [degF] Joanie Nicert Work Phone: [facility] Work Phone: 09-17-2020 15:36-0400 Body weight 83.46 kg Joanie Franco Work Phone: [facility] Work Phone: 09-17-2020 15:36-0400 Diastolic blood pressure 78 mm[Hg] Joanie Franco Work Phone: [facility] Work Phone: 09-17-2020 15:36-0400 Systolic blood pressure 124 mm[Hg] Joanie Nicert Work Phone: [facility] Work Phone: 03-05-2020 12:33-0500 BMI (Body Mass Index) 34.68 kg/m2 LeathaDeann Nicert [facility] Work Phone: 03-05-2020 12:33-0500 Body Temperature 98.1 [degF] Leatha Salvador [facility] Work Phone: 03-05-2020 12:33-0500 Body weight 83.26 kg Joanie Franco [facility] Work Phone: 03-05-2020 12:33-0500 BP Diastolic 74 mm[Hg] Joanie Nicert [facility] Work Phone: 03-05-2020 12:33-0500 BP Systolic 130 mm[Hg] Joanie Franco [facility] [...] 12-05-2019 12:02-0400 BP Systolic 136 mm[Hg] Joanie Nicert [facility] Work Phone: 12-05-2019 12:02-0400 BSA (Body Surface Area) 1.81 m2 Joanie Franco [facility] Work Phone: 12-05-2019 12:02-0400 Pulse (Heart Rate) 64 /min Joanie Franco [facility] Work Phone: 09-05-2019 13:07-0400 BMI (Body Mass Index) 34.52 kg/m2 Joanie Nicert [facility] Work Phone: 09-05-2019 13:07-0400 Body Temperature 98 [degF] Joanie Nicert [facility] Work Phone: 09-05-2019 13:07-0400 Body weight 82.87 kg Joanie Nicert [facility] Work Phone: 09-05-2019 13:07-0400 BP Diastolic 72 mm[Hg] Joanie Nicert [facility] Work Phone: 09-05-2019 13:07-0400 BP Systolic 132 mm[Hg] Joanie Nicert [facility] Work Phone: 09-05-2019 13:07-0400 BSA (Body Surface Area) 1.82 m2 Joanie Nicert [facility] Work Phone: 05-22-2019 13:04-0500 BMI (Body Mass Index) 35.03 kg/m2 Joanie Nicert [facility] Work Phone: 05-22-2019 13:04-0500 Body Temperature 98.3 [degF] Joanie Nicert [facility] Work Phone: 05-22-2019 13:04-0500 Body weight 84.1 kg Joanie Nicert [facility] Work Phone: 05-22-2019 13:04-0500 BP Diastolic 68 mm[Hg] Joanie Nicert [facility] Work Phone: 05-22-2019 13:04-0500 BP Systolic 120 mm[Hg] Joanie Nicert [facility] Work Phone: 05-22-2019 13:04-0500 BSA (Body Surface Area) 1.83 m2 Joanie Franco [facility] Work Phone: 10-14-2016 07:140400 Body surface area Derived from formula 80.44 mL/min Efrem Corrigan MD [facility] Work Phone: Encounters Encounter Date Encounter Type Care Provider Facility Start: 08-14-2024 End: 08-14-2024 ambulatory Varsha Beth [employer] TE[employer]ER-C Work Phone: [facility] Work Phone: Start: 08-14-2024 End: 08-14-2024 Patient encounter procedure Varsha Beth [employer] -Laboratory Specimen Work Phone: Start: 08-14-2024 End: 08-14-2024 ambulatory Varsha Beth KEYBOARD TEACHER Facility:[facility] Start: 06-30-2024 End: 06-30-2024 ambulatory NAILA FRANCO Facility:[facility] Start: 06-18-2024 End: 06-18-2024 ambulatory OTILIA MCKENNA [facility] Facility:[facility] Start: 06-05-2024 End: 06-05-2024 ambulatory Varsha Beth [employer]BOARD TEACHER-C Work Phone: [facility] Work Phone: Start: 06-05-2024 End: 06-05-2024 Patient encounter procedure Varsha Beth [employer] TE[employer]C -Laboratory, Specimen Work Phone: Start: 06-05-2024 End: 06-05-2024 ambulatory Varsha Beth KEYBOARD TEACHER Facility:[facility] Start: 05-29-2024 End: 05-29-2024 ambulatory BENJI MILAN MD Facility:[facility] Start: 05-23-2024 ambulatory NAILA Farmer y:[facility] Start: 05-19-2024 End: 05-19-2024 ambulatory BENJI MILAN MD Facility:[id number] Start: 05-08-2024 End: 05-08-2024 ambulatory BENJI MILAN MD Facility:[id number] Start: 04-10-2024 End: 04-10-2024 ambulatory BENJI MILAN MD Facility:[facility] Start: 03-06-2024 End: 03-06-2024 Patient encounter procedure Varsha Beth [employer] TE[employer]ER-C -Laboratory, Specimen Work Phone: Start: 03-06-2024 End: 03-06-2024 ambulatory Varsha Beth NP Facility:[facility] Start: 02-26-2024 End: 02-26-2024 ambulatory BENJI MILAN MD Facility:[facility] Start: 02-26-2024 End: 02-26-2024 ambulatory BENJI MILAN MD Facility:[id number] Start: 12-06-2023 End: 12-06-2023 Patient encounter status Joanie Franco MD Work Phone: [facility] Work Phone: Start: 12-06-2023 End: 12-06-2023 Periodic preventive med est patient 40-64yrs Joanie Franco MD Work Phone: [facility]/Peds Comment on above: Health maintenance e xamination (Primary Dx); Mixed hyperlipidemia; Attention deficit hyperactivity disorder (ADHD), predominantly inattentive type; Depression, unspecified depression type; Recurrent cold sores; Insomnia, unspecified type; Anxiety disorder, unspecified type; Thyroid disease; Encounter for Papanicolaou smear for cervical cancer screening Start: 12-06-2023 End: 12-07-2023 ambulatory [facility] Ambulatory Start: 10-12-2023 End: 10-12-2023 ambulatory Varsha Beth NP Facility:[facility] Start: 08-22-2023 End: 08-22-2023 ambulatory No Primary Care Physician Facility:[facility] Start: 08-13-2023 End: 08-13-2023 Office outpatient visit 25 minutes Joanie Franco MD Work Phone: [facility] Comment on above: Mixed hyperlipidemia (Primary Dx); Medication management contract agreement; Medication management; Depression, unspecified depression type; Anxiety disorder, unspecified type; Attention deficit hyperactivity disorder (ADHD), predominantly inattentive type; Recurrent cold sores; Breast cancer screening by mammogram; Insomnia, unspecified type Start: 08-13-2023 End: 08-13-2023 ambulatory [facility] Ambulatory Start: 05-18-2023 End: 05-18-2023 ambulatory [facility] Work Phone: Start: 05-18-2023 End: 05-18-2023 Patient encounter procedure [facility]-Laboratory, Specimen Work Phone: Start: 05-14-2023 End: 05-14-2023 Office outpatient visit 25 minutes Joanie Franco MD Work Phone: [facility] Comment on above: Mixed hyperlipidemia (Primary Dx); Depression, unspecified depression type; Attention deficit hyperactivity disorder (ADHD), predominantly inattentive type; Medication management contract agreement; Medication management; Recurrent cold sores; Anxiety disorder, unspecified type Start: 05-14-2023 End: 05-14-2023 ambulatory [facility] Ambulatory Start: 02-12-2023 End: 02-12-2023 Office outpatient visit 25 minutes Joanie Franco MD Work Phone: [facility]/Peds Comment on above: Mixed hyperlipidemia (Primary Dx); Depression, unspecified depression type; Anxiety disorder, unspecified type; Attention deficit hyperactivity disorder (ADHD), predominantly inattentive type; Thyroid disease Start: 02-09-2023 End: 02-09-2023 ambulatory [facility] Work Phone: Start: 02-09-2023 End: 02-09-2023 Patient encounter procedure [facility]-Laboratory, Specimen Work Phone: Start: 11-07-2022 End: 11-07-2022 Office outpatient visit 15 minutes Joanie Franco MD Work Phone: [facility] Comment on above: Mixed hyperlipidemia (Primary Dx); Depression, unspecified depression type; Recurrent cold sores; Anxiety disorder, unspecified type; Thyroid disease Start: 11-02-2022 End: 11-02-2022 Patient encounter procedure [facility]-Laboratory, Specimen Work Phone: Start: 07-27-2022 End: 07-27-2022 Office outpatient visit 15 minutes Joanie Franco MD Work Phone: [facility]eds Comment on above: Attention deficit hy peractivity disorder (ADHD), predominantly inattentive type (Primary Dx); Depression, unspecified depression type; Anxiety disorder, unspecified type; Mixed hyperlipidemia; Recurrent cold sores Start: 07-25-2022 End: 07-25-2022 ambulatory [facility] Work Phone: Start: 07-25-2022 End: 07-25-2022 Patient encounter procedure [facility]-Laboratory, Specimen Start: 05-02-2022 AUDIT Joanie Nice rt Work Phone: [facility] Work Phone: Start: 04-17-2022 Chart Update Joanie ferrer Work Phone: [facility] Work Phone: Start: 04-14-2022 End: 04-14-2022 ambulatory [facility] Work Phone: Start: 04-14-2022 End: 04-14-2022 Patient encounter procedure [facility]-Laboratory, Specimen Start: 04-11-2022 Office outpatient vi sit 25 minutes Joanie Franco Work Phone: [facility] Work Phone: Start: 04-11-2022 Patient encounter procedure Joanie Franco Work Phone: [facility] Work Phone: Start: 04-11-[address] Joanie Franco Fa cility:[id number] Start: 04-07-2022 End: 04-07-2022 Emergency department patient visit [facility]-Emergency Department Start: 03-24-2022 AUDIT Joanie ferrer Work Phone: [facility] Work Phone: Start: 03-22-2022 AUDIT Joanie Nice rt Work Phone: [facility] Work Phone: Start: 02-22-2022 AUDIT Joanie Nice rt Work Phone: [facility] Work Phone: Start: 01-23-2022 AUDIT Joanie Nice rt Work Phone: [facility] Work Phone: Start: 12-29-2021 AUDIT Joanie Nice rt Work Phone: [facility] Work Phone: Start: 12-23-2021 AUDIT Joanie Nice rt Work Phone: [facility] Work Phone: Start: 12-16-2021 End: 12-16-2021 ambulatory [facility] Work Phone: Start: 12-16-2021 End: 12-16-2021 Patient encounter procedure [facility]-Laboratory, Specimen Start: 11-25-2021 Office outpatient vi sit 25 minutes Joanie Franco Work Phone: [facility] Work Phone: Start: 11-25-[address] Joanie Franco Fa cility:[id number] Start: 11-18-2021 AUDIT Joanie Nice rt Work Phone: [facility] Work Phone: Start: 11-10-2021 AUDIT Joanie Nice rt Work Phone: [facility] Work Phone: Start: 11-01-2021 End: 11-01-2021 Patient encounter procedure [facility]-Laboratory, Specimen Start: 10-20-2021 AUDIT Joanie Nice rt Work Phone: [facility] Work Phone: Start: 10-07-2021 AUDIT Joanie Zacarias Stua rt Work Phone: [facility] Work Phone: Start: 09-01-2021 Chart Update Joanie Nice rt Work Phone: [facility] Work Phone: Start: 08-26-2021 Chart Update Joanie Zacarias Stua rt Work Phone: [facility] Work Phone: Start: 08-25-[address] Joanie Franco Fa cility:[id number] Start: 08-25-2021 Office outpatient vi sit 25 minutes Joanie Franco Work Phone: [facility] Work Phone: Start: 08-18-2021 End: 08-18-2021 Patient encounter procedure [facility]-Laboratory, Specimen Start: 08-18-2021 AUDIT Joanie Zacarias Stua rt Work Phone: [facility] Work Phone: Start: 08-02-2021 AUDIT Joanie Zacarias Stua rt Work Phone: [facility] Work Phone: Start: 07-02-2021 AUDIT Joanie Zacarias Stua rt Work Phone: [facility] Work Phone: Start: 05-24-2021 End: 05-24-2021 Emergency department patient visit [facility]-Emergency Department Start: 05-18-2021 AUDIT Joanie Zacarias Stua rt Work Phone: [facility] Work Phone: Start: 03-15-2021 Office outpatient vi sit 25 minutes Joanie Franco Work Phone: [facility] Work Phone: Start: 02-05-2021 AUDIT Leatha Stua rt Work Phone: [facility] Work Phone: Start: 01-10-2021 AUDIT Leatha Stua rt Work Phone: [facility] Work Phone: Start: 12-23-2020 AUDIT Leatha Stua rt Work Phone: [facility] Work Phone: Start: 11-22-2020 AUDIT Leatha Stua rt Work Phone: [facility] Work Phone: Start: 10-27-2020 AUDIT Leatha Stua rt Work Phone: [facility] Work Phone: Start: 09-17-2020 Office outpatient vi sit 15 minutes Leatha Salvador Work Phone: [facility] Work Phone: Start: 09-17-2020 Patient encounter procedure Leatha Salvador Work Phone: [facility] Work Phone: Start: 08-30-2020 AUDIT Leatha Stua rt Work Phone: [facility] Work Phone: Start: 08-17-2020 AUDIT Leatha Stua rt Work Phone: [facility] Work Phone: Start: 03-05-2020 Patient encounter procedure Leatha Salvador [facility] Work Phone: Start: 12-05-2019 Patient encounter procedure Leatha Salvador [facility] Work Phone: Start: 09-05-2019 Patient encounter procedure Leatha Salvador [facility] Work Phone: Start: 05-22-2019 Patient encounter procedure Joanie Franco [facility] Work Phone: Start: 12-31-2018 Patient encounter procedure Joanie Franco [facility] Work Phone: Start: 12-05-2018 Patient encounter procedure Joanie Franco [facility] Work Phone: Start: 08-20-2018 Patient encounter procedure Joanie Franco [facility] Work Phone: Start: 05-28-2018 Patient encounter procedure Joanie Franco [facility] Work Phone: Start: 04-28-2018 Patient encounter procedure Joanie Franco [facility] Work Phone: Start: 02-26-2018 Patient encounter procedure Joanie Franco [facility] Work Phone: Start: 09-04-2017 Patient encounter procedure Joanie Franco [facility] Work Phone: Patient encounter status Joanie Franco Work Phone: [facility] Work Phone: Comment on above: 02/18/2008; Procedures Date Procedure Procedure Detail Performing Clinician Start: 08-14-2024 Follicle stimulating hormone measurement Varsha Beth [employer]BOARD TEACHER-C Work Phone: Comment on above: FEMALE:Follicular: 1 .4 - 18.1 mIU/mLMidcycle: 3.4 - 33.4 mIU/mLLuteal: 1.5 - 9.1 mIU/mLPost Menopause: 23.0 - 116.3 mIU/mLMALE: 1.4 - 18.1 mIU/mL Start: 08-14-2024 Luteinizing hormone measurement Varsha Beth [employer] TEACHER-C Work Phone: Comment on above: FEMALE:Follicular: 1 .9-12.5 mIU/mLMidcycle: 8.7-76.3 mIU/mLLuteal: 0.5-16.9 mIU/mLPost Menopause: 15.9-54.0 mIU/mLMALE:20-70 Years: 1.5-9.3 mIU/mL>70 Years: 3.1-34.6 mIU/mL Start: 08-14-2024 Serum progesterone measurement Varsha Beth NP-C Work Phone: Comment on above: Follicular phase 0.1 - 0.9 Luteal phase 1.8 - 23.9 Ovulation phase 0.1 - 12.0 First trimester 11.0 - 44.3 Second trimester 25.4 - 83.3 Third trimester 58.7 - 214.0 Postmenopausal 0.0 - 0.1Performed at: [facility] [address] [id number] Director: Michael Arevalo PhD, Phone: [phone] Start: 08-13-2023 DRUG SCREEN, URINE W ITH REFLEX TO CONFIRMATION JOANIE FRANCO Start: 05-14-2023 DRUG SCREEN, URINE W ITH REFLEX TO CONFIRMATION JOANIE FRANCO Start: 04-07-2022 Plain chest X-ray Start: 04-07-2022 CT of head without contrast Start: 05-24-2021 Plain chest X-ray Start: 06-07-2020 Microscopic observat ion [Identifier] in Cervix by Cyto stain Joanie Franco MD Work Phone: Start: 12-05-2019 Lipid panel Joanie Franco Investigation of transfusion reaction Microbial culture, routine Removal of pilonidal cyst An stef Franco Work Phone: Plan of Treatment Date Care Activity Detail Author Start: 2028 Zoster Vaccines (1 o f 2) Zoster Vaccines (1 of 2) [facility] Start: 03-07-2024 End: 03-07-2024 Patient encounter procedure 03/07/2024 11:30 AM EST Office Visit [facility]/Peds [address] [facility] [address] [place] [address] Joanie Franco MD [address] [facility] [address] [place], [place] [phone] [facility] Start: 12-10-2023 End: 12-10-2023 Patient encounter procedure 12/10/2023 11:15 AM EDT Office Visit [facility]eds [address] [place] [address] Joanie Franco MD [address] [facility] [address] [place], [place] [phone] [facility] Start: 11-25-2023 COVID-19 Vaccine ( season) COVID-19 Vaccine ( season) [facility] Start: 11-25-2023 Influenza vaccination Influenza Vacc ine (#1) [facility] Start: 08-13-2023 End: 10-12-2024 DBT Breast - bilateral BI mammo bilateral screening tomosynthesis Imaging Routine Breast cancer screening by mammogram Expected: 08/13/2023, Expires: 10/12/2024 [facility] Service Area Work Phone: Comment on above: Expected: 08/13/2023 , Expires: 10/12/2024 Start: 08-13-2023 End: 08-13-2023 Patient encounter procedure 08/13/2023 11:00 AM EDT Office Visit [facility] [address] [place] [address] Joanie Franco MD [address] [facility] [address] [place], [place] [phone] [facility] Start: 06-08-2023 Screening for malignant neoplasm of cervix [facility] Start: 05-14-2023 End: 02-19-2024 Patient encounter procedure 05/14/2023 10:45 AM EST Office Visit [facility]eds [address] [facility] [address] [place] [phone] Joanie Franco MD [address] [facility] [address] [place] [address] [facility] Start: 02-12-2023 End: 02-12-2023 Patient encounter procedure 02/12/2023 11:00 AM EST Office Visit [facility]eds [address] [facility] [address] [place] [phone] Joanie Franco MD [address] [facility] [address] [place] [address] [facility] Start: 11-24-2022 COVID-19 Vaccine ( season) COVID-19 Vaccine ( season) [facility] Start: 11-24-2022 Influenza vaccination [facility] Start: 11-07-2022 End: 11-07-2022 Patient encounter procedure 11/07/2022 11:30 AM EDT Office Visit [facility]eds [address] [facility] [address] [place] [phone] Joanie Franco MD [address] [facility] [address] [place] [address] [facility] Start: 04-11-2022 FUV, Provider: Joanie Franco, Status: Pen, Time: 10:30 AM FUV, Provider: Joanie Franco, Status: Pen, Time: 10:30 AM [facility] Work Phone: Start: 04-07-2022 Suicide precautions [facility] Start: 11-25-2021 FUV, Provider: Joanie Franco, Status: Pen, Time: 9:30 AM FUV, Provider: Joanie Franco, Status: Pen, Time: 9:30 AM [facility] Work Phone: Start: 08-25-2021 FUV, Provider: Joanie Franco, Status: Pen, Time: 10:30 AM FUV, Provider: Joanie Franco, Status: Pen, Time: 10:30 AM [facility] Work Phone: Start: 03-15-2021 FUV, Provider: Joanie Franco, Status: Pen, Time: 3:15 PM FUV, Provider: Joanie Franco, Status: Pen, Time: 3:15 PM [facility] Work Phone: Start: 01-18-2021 FUV, Provider: Joanie Franco, Status: Pen, Time: 10:45 AM FUV, Provider: Joanie Franco, Status: Pen, Time: 10:45 AM [facility] Work Phone: Start: 12-24-2020 FUV, Provider: Joanie Franco, Status: Pen, Time: 11:30 AM FUV, Provider: Joanie Franco, Status: Pen, Time: 11:30 AM [facility] Work Phone: Start: 11-16-2020 FUVGENERAL, Provider : Lorenzo Ashford, Status: Pen, Time: 11:00 AM FUVGENERAL, Provider: Lorenzo Ashford, Status: Pen, Time: 11:00 AM [facility] Work Phone: Start: 09-06-2020 FUV, Provider: Joanie Franco, Status: Pen, Time: 11:15 AM FUV, Provider: Joanie Franco, Status: Pen, Time: 11:15 AM [facility] Work Phone: Start: 08-24-2020 COVID-19 Vaccine (3 - Booster for Pfizer series) COVID-19 Vaccine (3 - Booster for Pfizer series) [facility] Start: 08-24-2020 COVID-19 Vaccine (3 - Pfizer series) COVID-19 Vaccine (3 - Pfizer series) [facility] Start: 2018 Screening for malignant neoplasm of breast Mammogram [facility] Start: 11-18-2012 Hepatitis B Vaccines (3 of 3 - 19+ 3-dose series) Hepatitis B Vaccines (3 of 3 - 19+ 3-dose series) [facility] Start: 09-25-2012 Hepatitis B Vaccines (3 of 3 - 19+ 3-dose series) Hepatitis B Vaccines (3 of 3 - 19+ 3-dose series) [facility] Start: 2000 DTaP/Tdap/Td Vaccine s (1 - Tdap) DTaP/Tdap/Td Vaccines (1 - Tdap) [facility] Start: 08-30-1999 Screening for malignant neoplasm of cervix [facility] Start: 1996 Hepatitis C screening Hepatitis C [facility] Start: 08-30-1979 MMR Vaccines (1 of 1 - Standard series) MMR Vaccines (1 of 1 - Standard series) [facility] Start: 1978 HIV screening HIV Screening [facility] Start: 1978 Lipid panel Lipid Panel [facility] Start: 1978 Screening for malignant neoplasm of colon [facility] Start: 1978 Thyroid stimulating hormone measurement TSH Level [facility] Start: 1978 Yearly Adult Physical Yearly Adult P hysical [facility] Cytology Cervical or vaginal smear or scraping study THINPREP PAP TEST Pathology and Cytology Routine Encounter for Papanicolaou smear for cervical cancer screening 12/06/2023 12:29 PM EDT [facility] Service Area Work Phone: Drugs of abuse scree n W Reflex confirm panel - Urine Drug Screen, Urine With Reflex to Confirmation Lab Routine Medication management contract agreement Medication management 08/13/2023 11:13 AM EDT [facility] Work Phone: Patient Education [facility] Work Phone: Patient referral [facility] Work Phone: Serum progesterone measurement [facility] Work Phone: [facility] NEGATED: Highlighted row has been ruled out! Planned Goals not documented [facility] Work Phone: Immunizations Immunization Date Immunization Notes Care Provider Agnes warren 05-07-2023 influenza virus vaccine, unspecified formulation Joanie Fracno MD Work Phone: [facility] Work Phone: 06-29-2020 Pfizer-BioNTech COVID-19 Vacc 30 MCG/0.3ML Intramuscular Suspension Joanie Franco Work Phone: [facility] 06-08-2020 Pfizer-BioNTech COVID-19 Vacc 30 MCG/0.3ML Intramuscular Suspension Joanie Franco Work Phone: [facility] 06-11-2017 hepatitis B vaccine, adult dosage [facility] 06-11-2017 measles, mumps and rubella virus vaccine [facility] 05-07-2017 hepatitis B vaccine, adult dosage [facility] 05-07-2017 measles, mumps and rubella virus vaccine [facility] 04-19-2017 influenza, injectabl e, quadrivalent, preservative free [facility] 04-19-2017 influenza, seasonal, injectable [facility] 04-19-2017 tetanus toxoid, redu alan diphtheria toxoid, and acellular pertussis vaccine, adsorbed [facility] 06-18-2012 hepatitis B vaccine, adult dosage; Translations: [Hepatitis B] Joanie Franco [facility] Work Phone: Comment on above: Series: 04-25-2012 hepatitis B vaccine, pediatric or pediatric/adolescent dosage Joanie Franco MD Work Phone: [facility] Work Phone: 04-25-2012 hepatitis B vaccine, adult dosage; Translations: [Hep B (Recombivax)] Joanie Franco [facility] Work Phone: Comment on above: Series: 03-28-2012 hepatitis B vaccine, adult dosage; Translations: [Hepatitis B] Joanie Franco [facility] Work Phone: Comment on above: Series: Payers Date Payer Category Payer Self-pay [id number] 2021 Unknown 2021 Unknown [id number] 2017 Unknown [id number] 1978 Unknown [id number] 2.16. [id number] 1978 Unknown [id number] 2.16. 840.1.240424.3.579.2.356 1978 Unknown [id number] 2.16. 840.1.940230.3.579.2.356 1978 Unknown [id number] 2.16.8 40.1.093536.3.579.2.1244 1978 Unknown [id number] 2.16.8 40.1.138630.3.579.2.1244 1978 Unknown [id number] 2.16.8 40.1.335589.3.579.2.1244 1978 Unknown [id number] 2.16.8 40.1.189342.3.579.2.159 1978 Unknown [id number] 2.16.8 40.1.504239.3.579.2.159 1978 Unknown [id number] 2.16.8 40.1.442649.3.579.2.159 1978 Unknown [id number] 2.16.8 40.1.262384.3.579.2.159 1978 Unknown [id number] 2.16.8 40.1.796642.3.579.2.159 1978 Unknown [id number] 2.16.8 40.1.901643.3.579.2.159 1978 Unknown [id number] 2.16.8 40.1.391049.3.579.2.159 1978 Unknown [id number] 2.16.8 40.1.348760.3.579.2.159 1978 Unknown [id number] 2.16.8 40.1.397996.3.579.2.159 1978 Unknown [id number] 2.16.8 40.1.628317.3.579.2.159 Unknown [id number] Unknown [id number] 2.16.8 40.1.624814.3.579.2.462 Unknown [id number] 2.16.8 40.1.826336.3.579.2.462 Unknown [id number] 2.16.8 40.1.303243.3.579.2.462 Unknown [id number] 2.16.8 40.1.123511.3.579.2.462 Unknown [id number] 2.16.8 40.1.194080.3.579.2.462 Unknown [id number] 2.16.8 40.1.103876.3.579.2.462 Social History Date Type Detail Facility Start: 07-27-2022 End: 12-06-2023 Marital History - Currently Marital History - Currently [facility] Work Phone: Start: 05-24-2021 End: 04-07-2022 Tobacco smoking status NHIS Unknown if ever smoked [facility] Start: 1980 Sex Assigned At Female [facility] Start: 07-27-2022 Tobacco smoking status NHIS Never smoked tobacco [facility] Work Phone: Start: 07-27-2022 Tobacco use and exposure Smokeless tobacco non-user [facility] Work Phone: Start: 07-27-2022 End: 12-06-2023 Alcohol intake Lifetime non-drinker (finding) [facility] Work Phone: Start: 07-27-2022 End: 12-06-2023 Tobacco use panel [facility] Work Phone: Start: 07-17-2022 End: 12-06-2023 Exposure to SARS-CoV-2 (event) Not sure [facility] Start: 10-12-2016 Rare [facility] Start: 10-12-2016 None [facility] Start: 10-12-2016 Spouse/ Signif icant Other [facility] Start: 03-26-2017 Cigarettes [facility] Start: 03-05-2024 Tobacco smoking status NHIS Smokes tobacco daily (finding) [facility] Start: 06-17-2024 Sex Female (finding) [facility] NEGATED: Highlighted row - - [facility] Work Phone: NEGATED: Highlighted row [facility] NEGATED: Highlighted rowStart: NINF History of tobacco use Passive smoker [facility] Work Phone: Functional Status Date Assessment Result Facility NEGATED: Highlighted row Functional performance Functional status health issues are not documented Disease [facility] Work Phone: Mental Status Date Assessment Result Facility 05-24-2021 Cognitive function Level Of Cons ciousness Awake;Alert;Appropriate ;Follows Commands [facility] Work Phone: NEGATED: Highlighted row Cognitive function [Interpretation] Cognitive status health issues are not documented Disease [facility] Work Phone: Clinical Notes 09-17-2020 to 06-05-2024 Note Date & Type Note Facility 06-05-2024 Evaluation note Diagnosis Onset Date Resolution Anxiety disorder acute June 052024 7:50pm Hypothyroid acute June 05, 025 7:50pm Insulin resistance acute June 05, 2024 7:50pm Hypothyroid acute August 14 7:02pm Insulin resistance acute August 142024 7:02pm Menopausal disorder acute July 252024 7:02pm Menopausal hot flushes acute 2024 7:02pm [facility] Work Phone: 1(631) 713-695002-13-2025 NotePAA Education Entered On: 05/08/2024 12:55 EST Performed On: 05/08/2024 12:55 EST by Genoveva Rodas RN General / Required Barriers to Learning : None evident TeachBack Methodology : TeachBack, Explanation, Printed Material Genovvea Rodas RN - 05/08/2024 12:55 EST Education Nursing General Required GRID Pain Management : Verbalizes understanding Speakup : Verbalizes understanding Genoveva Rodas RN 05/08/2024 12:55 EST Topic Specific Education Health Maintenance GRID Bathing/Hygiene : Verbalizes understanding Genoveva Rodas RN - 05/08/2024 12:55 EST Education Medication Management GRID Pain Can Be Managed,Relieved : Verbalizes understanding [facility] 05/08/2024 12:55 EST Infection Control Education Dialysis CHG Cloth Instructions : Verbalizes understanding (Comment: CHG instruction sheet and clothes given to the patient [Lyubov Rodas RNa - 05/08/2024 14:45 EST] ) Genoveva Rodas RN - 05/08/2024 14:45 EST Surgery - Hospital form # [id number] : Verbalizes understanding Pre Procedure / Surgery Education Procedures Tests Exams GRID Preoperative Instructions : Verbalizes understanding Preprocedure Tests/Labs : Verbalizes understanding Preprocedure Diet : Verbalizes understanding Genoveva Rodas RN [facility] NotePatient: BIN BILL Age: 43 years Sex: Female [...] years of improvement. Over the past couple yearsshe has experienced progressively worsening heavy prolonged bleeding. She states her periods can last 5 to 7 days with clots. She experiences dysmenorrhea and takes ibuprofen or Tylenol as needed forpain. Her last Pap was in November 2023 with no abnormal findings. An ultrasound was done which revealed 2 intramural fibroids 2.4 cm x 1.7 cm x 1.6 cm and a 1.1 cm x 0.9 cm x 1.1 cm. An endometrialbiopsy was done which revealed detached atypical squamous epithelium, mild dysplasia cannot be entirely excluded. Dr. Milan is recommending a laparoscopic-assisted vaginal hysterectomy, bilateral salpingectomy. The patient is agreeable. The patient denies any personal or known family history of anesthesia problems, including malignanthyperthermia or pseudocholinesterase deficiency. Histories Past Medical History: [...] Comment: quit January 2024 (05/08/2024 13:10 - Genoveva Rodas RN) Psychosocial History No active psychosocial history has been recorded . Patient is with 2 children. 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 Health Status Include (Selected) [...] Charted Heart Rate Peripheral 73 bpm (MAY 08:) Resp Rate 16 br/min (MAY 08:) SBP 117 mmHg (MAY 08:) DBP 78 mmHg (MAY 08:) BMI 34.67 (MAY 08:) General: Alert and [...] Normal strength, No tenderness, No swelling, No deformity,Normal gait. Integumentary: Warm, Dry, Caro. Neurologic: Alert, Oriented, Normal sensory, Normal motor function. Cognition and Speech: Oriented, Speech clear and coherent. Psychiatric: Cooperative, Appropriate mood & affect. Impression and Plan Diagnosis 1. Preprocedural exam Z01.818 2. Menorrhagia N92.0 3. Asthma J45.90-managed with Trelegy as (more content not included)...[facility]12-12-2024 Evaluation note* Diagnosis Onset Date Resolution Status Admit Date ADD (attention deficit disorder) acute March 06, 2 024 8:05pm Anxiety disorder acute March 06, 2024 8:05pm Depression acute March 06, 2024 8:05pm High cholesterol acute March 06, 2024 8:05pm Hypothyroid acute February 8:05pm Insomnia acute March 06, 2024 8:05pm Anxiety disorder acute June 052024 7:50pm Hypothyroid acute June 05, 025 7:50pm Insulin resistance acute June 05, 2024 7:50pm [facility] Work Phone: 1([phone]) 737-450309-12-2024 History of Present illness Narrative* Joanie Franco MD - 12/06/2023 11:15 AM EDT Subjective Patient ID: Bin Bill is a 43 y.o. female who presents for Well woman Exam (EP. Here for WWE/PAP). HPI Feels well, no specific complaints or concerns today. Meds reviewed/no changes except for dose of levothyroxine is 88 mcg Had uterine ablation 15 years ago Review of Systems General: no fever or night sweats, no change in weight Eyes: no vision disturbance ENT: no mouth lesions, no sore throat, and no dysphagia CV: no chest pain, no palpitations, no lower extremity edema Resp: no shortness of breath, no cough GI: no abdominal pain, no change in bowel habits : no urinary problems MSK: no arthralgias, myalgias, or back pain Skin; no rashes or new/changed skin lesions Neuro: no headaches Objective BP 124/82 Pulse 71 Temp 36.9 C (98.4 F) (Oral) Wt 83 kg (183 lb) SpO2 97% BMI 34.58 kg/m Physical Exam Appears well. HEENT: OP clear. Sclera white. PERRL. EACs and TMs clear. Neck: supple, no masses, or lymphadenopathy. No thyromegaly. CVS: RRR. No murmurs. Lungs: clear with normal inspirations and expirations. Breasts: Symmetrical, no masses, no skin retraction or dimpling. No nipple discharge. No axillary nodes. Abd: soft, NT, no masses or HSM. Pelvic: No vulvar lesions. No vaginal lesions or discharge. Normal appearing cervix with no lesions. No adnexal masses. Normal uterus. Skin: No suspicious lesions. Assessment/Plan Diagnoses and all orders for this visit: Health maintenance examination Mixed hyperlipidemia - atorvastatin (Lipitor) 20 mg tablet; Take 1 tablet (20 mg) by mouth once daily. Attention deficit hyperactivity disorder (ADHD), predominantly inattentive type - lisdexamfetamine (Vyvanse) 50 mg capsule; Take 1 capsule (50 mg) by mouth once daily. Take in themorning Depression, unspecified depression type - venlafaxine XR (Effexor-XR) 75 mg 24 hr capsule; Take 3 capsules (225 mg) by mouth once daily. - buPROPion XL (Wellbutrin XL) 300 mg 24 hr tablet; Take 1 tablet (300 mg) by mouth once daily. Recurrent cold sores Insomnia, unspecified type - traZODone (Desyrel) 100 mg tablet; Take 2 tablets (200 mg) by mouth once daily at bedtime. Anxiety disorder, unspecified type - venlafaxine XR (Effexor-XR) 75 mg 24 hr capsule; Take 3 capsules (225 mg) by mouth once daily. Thyroid disease Encounter for Papanicolaou smear for cervical cancer screening - THINPREP PAP TEST Joanie Franco MD [facility] Work Phone: 1(925) 384-648205-20-2024 History of Present illness Narrative* Joanie Franco MD - 08/13/2023 11:00 AM EDT Subjective Patient ID: Bin Bill is a 42 y.o. female who presents for Follow-up (EP. Here for follow upand medication.). HPI Feels well, no specific complaints or concerns today. Review of Systems Genl: The patient has been in good health without recent weight change, fevers, or night sweats CVS: No chest pain, irregular heartbeat, shortness of breath, or swollen ankles Resp: No cough or difficulty breathing GI: No change in bowel habits or abdominal pain. No heartburn : No urinary problems. Objective BP 130/84 Pulse 84 Temp 36.8 C (98.3 F) (Oral) Wt 86.2 kg (190 lb) SpO2 98% BMI 35.90 kg/m Physical Exam Alert, well-appearing. HEENT: OP clear. Sclera white. Pupils equal and round. EACs and TMs clear. Neck: Supple. No palpable masses. Thyroid was not enlarged. CVS: RRR, no murmurs. No peripheral edema. Respiratory: Normal inspirations and expirations. Clear and equal breath sounds. GI: Soft, nontender, no masses or hepatosplenomegaly. Assessment/Plan Diagnoses and all orders for this visit: Mixed hyperlipidemia - atorvastatin (Lipitor) 20 mg tablet; Take 1 tablet (20 mg) by mouth once daily. Medication management contract agreement - Drug Screen, Urine With Reflex to Confirmation Medication management - Drug Screen, Urine With Reflex to Confirmation Depression, unspecified depression type - venlafaxine XR (Effexor-XR) 75 mg [...] mg) by mouth once daily. Take in themorning Recurrent cold sores - valACYclovir (Valtrex) 1 gram tablet; Take 2 tablets (2,000 mg) by mouth 2 times a day. Breast cancer screening by mammogram - BI mammo bilateral screening tomosynthesis; Future Insomnia, unspecified type - traZODone (Desyrel) 100 mg tablet; Take 2 tablets (200 mg) by mouth once daily at bedtime. Joanie Franco MD Family Medicine [facility] documented in this [facility] Work Phone: 1([phone]) 110-895702-19-2024 History of Present illness Narrative* Joanie Franco MD - 05/14/2023 10:45 AM EST Subjective Patient ID: Bin Bill is a 42 y.o. female who presents for Follow-up (EP. Here for follow upand medication.). HPI Feels well, no specific complaints or concerns today. Moods good- taking Wellbutrin and Effexor Doing well on Vyvanse Review of Systems Genl: The patient has been in good health without recent weight change, fevers, or night sweats CVS: No chest pain, irregular heartbeat, shortness of breath, or swollen ankles Resp: No cough or difficulty breathing GI: No change in bowel habits or abdominal pain. No heartburn : No urinary problems. Objective Visit Vitals BP 124/82 Pulse 78 Temp 36.6 C (97.8 F) (Oral) Physical Exam Alert, well-appearing. HEENT: OP clear. Sclera white. Pupils equal and round. Neck: Supple. No palpable masses. Thyroid was not enlarged. CVS: RRR, no murmurs. Respiratory: Clear and equal breath sounds. GI: Soft, nontender. Assessment/Plan Diagnoses and all orders for this visit: Mixed hyperlipidemia Depression, unspecified depression type Attention deficit hyperactivity disorder (ADHD), predominantly inattentive type Medication management contract agreement Medication management Recurrent cold sores Anxiety disorder, unspecified type Follow up 3 mos Joanie Franco MD [facility] Work Phone: 1(422) 319-102111-20-2023 History of Present illness Narrative* Joanie Franco MD - 02/12/2023 11:00 AM EST Subjective Patient ID: Bin Bill is a 42 y.o. female who presents for Follow-up (EP. Here for follow upon ADD and medication). HPI Feels well, no [...] mg) by mouth once daily. Take in themorning Thyroid disease Joanie Franco MD Family Medicine [facility] documented in this [facility] Work Phone: 1([phone]) 899-508608-15-2023 History of Present illness Narrative* Joanie Franco MD - 11/07/2022 11:30 AM EDT Subjective Patient ID: Bin Bill is a 42 y.o. female who presents for Follow-up (EP. Here for follow onmedications.). HPI Feels well, no specific complaints or [...] Thyroid disease Joanie Franco MD Family Medicine [facility] documented in this [facility] Work Phone: 1([phone]) 947-889605-04-2023 History of Present illness Narrative* Joanie Franco MD - 07/27/2022 11:45 AM EDT Subjective Patient ID: Bin Bill is a 41 y.o. female who presents for ADHD (EP. Here for follow up on ADHD and medication). HPI Doing well, no complaints today Had recent bw done/ordered by [employer] (whom she works for)- Varsha prescribes [...] inattentive type Joanie Franco MD Family Medicine [facility] documented in this [facility] Work Phone: [phone]) 779-706601-13-2023 History of Present illness Narrative* EP. Here for follow up on ADHD and medication. * Bin is a 41 year old female presenting today for a follow up of her ADHD and medication refills. * -Valentine was seen * -Reports having to call 911 and being brought to the [facility] on 04/07. This was due to severe confusion, numbness, and dyspnea. * -States her symptoms proceeded to get worse after calling. * -At the ER she states they found nothing wrong but was put on multiple antibiotics. * -She had a CT scan of the head and CXR. * - states she would have outbursts while they are at the hospital. * -Prior to this reports she was yelled at at work and thinks this may have triggered her anxiety. * -Taking all of her medications as prescribed. * -Still having a little brain fog. -[facility] Work Phone: [phone]) 861-646601-13-2023 History of Present illness Narrative* EP. Here for follow up on ADHD and medication. * Bin is a 41 year old female presenting today for a follow up of her ADHD and medication refills. * -Patient was seen on 04/07/22 at [facility] * -Reports having to call 911 and being brought to [facility] on 04/07. This was due to severe confusion, numbness, and dyspnea. * -States her symptoms proceeded to get worse after calling. * -At the ER she states they found nothing wrong * -She had a CT scan of the head and CXR. * - states she would have outbursts while they were at the hospital- she does not recall this * -Prior to this reports she was yelled at at work and thinks this may have triggered her anxiety. * -Taking all of her medications as prescribed. * -Still having a little brain fog. * -Denies any drug use [facility] Work Phone: 1([phone]) 236-113011-03-2021 History of Present illness Narrative* FUV. Needs medication refills sent to [facility]. * States she feels Adderall is not working very well for her. * Reports losing focus at work. * She is currently taking 2 capsules of Adderall in the morning. * States her mood has been good. * She is doing well on Wellbutrin and Venlafaxine. [facility] Work Phone: 1([phone]) [phone] History of Present illness Narrative* FUV. Needs medication refills sent to [facility]. * States she is doing well. * States she feels Adderall is not working very well for her. * Reports losing focus at work. * She is currently taking 2 capsules of Adderall in the morning. * States her mood has been good. * She is doing well on Wellbutrin and Venlafaxine. [facility] Work Phone: Evaluation note* Diagnosis Onset Date Resolution Status Fatigue acute High cholesterol acute Hypothyroid acute Insomnia acute Seasonal allergies acute [facility] Work Phone: Evaluation note* Diagnosis Onset Date Resolution Status Fatigue acute High cholesterol acute Hypothyroid acute Insomnia acute Seasonal allergies acute Bug bite with infection acut e [facility] Work Phone: Evaluation note* Diagnosis Onset Date Resolution Status Bug bite with infection acut e ADD (attention deficit disorder) acute Depression acute Fatigue acute High cholesterol acute Hypothyroid acute [facility] Work Phone: Evaluation note* Diagnosis Onset Date Resolution Status ADD (attention deficit disorder) acute Depression acute Fatigue acute High cholesterol acute Hypothyroid acute [facility] Work Phone: Evaluation note* Diagnosis Onset Date Resolution Status Hypothyroid acute Leukocytosis acute [facility] Work Phone: Evaluation note* Diagnosis Attention deficit hyperactivity disorder (ADHD), predominantly inattentive type- Primary Depression, unspecified depression type Anxiety disorder, unspecified type Mixed hyperlipidemia Recurrent cold sores Herpes simplex without mention of complication documented in this encounter [facility] Work Phone: Evaluation note* Diagnosis Onset Date Resolution Status Hypothyroid acute Leukocytosis acute ADD (attention deficit disorder) acute High cholesterol acute Hypothyroid acute [facility] Work Phone: Evaluation note* Diagnosis Mixed hyperlipidemia- Primary Depression, unspecified depression type Recurrent cold sores Herpes simplex without mention of complication Anxiety disorder, unspecified type Thyroid disease Unspecified disorder of thyroid documented in this encounter [facility] Work Phone: Evaluation note* Diagnosis Mixed hyperlipidemia- Primary Depression, unspecified depression type Anxiety disorder, unspecified type Attention deficit hyperactivity disorder (ADHD), predominantly inattentive type Thyroid disease Unspecified disorder of thyroid documented in this encounter [facility] Work Phone: evaluation note* Diagnosis Onset Date Resolution Status High cholesterol acute Hypothyroid acute Weight loss acute ADD (attention deficit disorder) acute Depression acute Fatigue acute Hypothyroid acute Vitamin D deficiency acute [facility] Work Phone: Evaluation note* Diagnosis Mixed hyperlipidemia- Primary Depression, unspecified depression type Attention deficit hyperactivity disorder (ADHD), predominantly inattentive type Medication management contract agreement Medication management Recurrent cold sores Herpes simplex without mention of complication Anxiety disorder, unspecified type documented in this encounter [facility] Work Phone: evaluation note* Diagnosis Onset Date Resolution Status ADD (attention deficit disorder) acute Depression acute Fatigue acute Hypothyroid acute Vitamin D deficiency acute ADD (attention deficit disorder) acute High cholesterol acute Hypothyroid acute Vitamin D deficiency acute [facility] Work Phone: Evaluation note* Diagnosis Mixed hyperlipidemia- Primary Medication management contract agreement Medication management Depression, unspecified depression type Anxiety disorder, unspecified type Attention deficit hyperactivity disorder (ADHD), predominantly inattentive type Recurrent cold sores Herpes simplex without mention of complication Breast cancer screening by mammogram Insomnia, unspecified type documented in this encounter [facility] Work Phone: Evaluation note* Diagnosis Health maintenance examination- Primary Unspecified general medical examination Mixed hyperlipidemia Attention deficit hyperactivity disorder (ADHD), predominantly inattentive type Depression, unspecified depression type Recurrent cold sores Herpes simplex without mention of complication Insomnia, unspecified type Anxiety disorder, unspecified type Thyroid disease Unspecified disorder of thyroid Encounter for Papanicolaou smear for cervical cancer screening documented in this encounter [facility] Work Phone: History of Present illness [...] to take Trazodone - 2 at bedtime. [facility] Work Phone: History of Present [...] * -Does not eat much red meat. [facility] Work Phone: History of Present illness Narrative* EP. Here for follow up on ADD and medication. * Pt is doing well * only complaint today is rash on foot, reports great toenail fungus on the one foot as well * did not get bw done yet but intends to * med list reviewed [facility] Work Phone: Hospital Discharge instructions Additional Instructions Go home and get plenty of rest. Drink plenty of oral fluids. Follow-up with your primary care physician on Sunday.[facility] Work Phone: Reason for referral (narrative)No reason for referral [facility]: Family History No Family History [...] Significant Family Histor y: Family History Status:Active Relationship Condition Age at Onset Recorded Date/T kedar Not Specified Diabetes mellitus Unknown High blood cholesterol Unknown Cardiac disease Unknown Migraine headache Unknown Malignant neoplasm of breast Unknown Hypertension Unknown Disorder of thyroid Unknown Unknown Unknown Family Member Name Dates Details No [...] Significant Family Histor y: Family History Status:Active Chief Complaint and Reason for Visit Chief Complaint COLD SYMPTOMS labs to be drawn &(Kenalog injection) Reason for Visit Fatigue High cholesterol Hypothyroid Insomnia Seasonal allergies Chief Complaint labs to be drawn &(K enalog injection) Culture Reason for Visit Fatigue High cholesterol Hypothyroid Insomnia Seasonal allergies Bug bite with infection Chief Complaint Culture tsh cmp Reason for Visit Bug bite with infect ion ADD (attention deficit disorder) Depression Fatigue High cholesterol Hypothyroid Chief Complaint tsh cmp SOB, CP, DIZZINESS Reason for Visit ADD (attention defic it disorder) Depression Fatigue High cholesterol Hypothyroid Chief Complaint SOB, CP, DIZZINESS labs to be drawn Reason for Visit Hypothyroid Leukocytosis Chief Complaint SOB, CP, DIZZINESS labs to be drawn TSH T4 FREE LIPID PANEL CMP TSH,T4 FREE, CMP, LIPID PANEL Reason for Visit Hypothyroid Leukocytosis ADD (attention deficit disorder) High cholesterol Hypothyroid Chief Complaint labs to be drawn labs to be drawn TSH VIT D CBC W/DIFF CMP LIPID Reason for Visit High cholesterol Hypothyroid Weight loss ADD (attention deficit disorder) Depression Fatigue Hypothyroid Vitamin D deficiency Chief Complaint labs to be drawn TSH VIT D CBC W/DIFF CMP LIPID labs to be drawn tsh t4 free cmp lipid V-d Reason for Visit ADD (attention defic it disorder) Depression Fatigue Hypothyroid Vitamin D deficiency ADD (attention deficit disorder) High cholesterol Hypothyroid Vitamin D deficiency Chief Complaint Admit Date Labs lipid cmp cbc tsh t3 t4 bmp [id number] March 05, 2024 7:57pm labs to be drawn March 06, 2024 8:05pm labs to be drawn June 05, 2024 7:5 0pm Reason for Visit Admit Date ADD (attention deficit disorder) Decembe r 2023 8:05pm Anxiety disorder March 06, 2024 8:05pm Depression March 06, 2024 8:05pm High cholesterol March 06, 2024 8:05pm Hypothyroid March 06, 2024 8:05pm Insomnia March 06, 2024 8:05pm Anxiety disorder June 05, 2024 7:5 0pm Hypothyroid June 05, 2024 7:5 0pm Insulin resistance June 05, 2024 7:5 0pm Chief Complaint Admit Date labs to be drawn June 05, 2024 7:5 0pm labs to be drawn August 14, 2024 7:02p m [facility] August 14, 2024 11:35 pm Reason for Visit Admit Date Anxiety disorder June 05, 2024 7:5 0pm Hypothyroid June 05, 2024 7:5 0pm Insulin resistance June 05, 2024 7:5 0pm Hypothyroid August 14, 2024 7:02p m Insulin resistance August 14, 2024 7:02p m Menopausal disorder August 14, 2024 7:02p m Menopausal hot flushes August 14, 2024 7: 02pm Advance Directives No Advanced Directives Records Found Advance Directive Response Recorded Date/ Time Living Will No May 24, 2021 3:21pm Power of Junior Account Executive No May 24 3:21pm Advance Directive Response Recorded Date/ Time Living Will No April 07 7:46pm Power of Junior Account Executive No April 07, 2022 7:46pm Advance Directive Response Recorded Date/ Time Living Will No April 07 8:46pm Power of Junior Account Executive No April 07, 2022 8:46pm Summary Purpose Reason for Referral Specialty Diagnoses / Procedures Referred By Contac t Referred To Contact Radiology Diagnoses Breast cancer screening by mammogram Procedures BI mammo bilateral screening tomosynthesis Joanie Franco MD [address] [facility], [place] [address] Referral ID Status Reason Start Date Expiration Date Visits Requested Visits Authorized [id number] Authorized Perform Procedure 08/13/2023 08/12/2024 1 1 Additional Source Comments Goals (unrecognized section and content) Goals may be documented in a n alternate sectionGoals may be documented in an alternate sectionGoals may be documented in an alternate sectionGoals may be documented in an alternate sectionGoals may be documented in an alternate sectionGoals may be documented in an alternate sectionGoals may be documented in an alternate sectionGoals may be documented in an alternate sectionGoals may be documented in an alternate sectionGoals may be documented in an alternate section INFORMATION SOURCE (unrecogn ized section and content) DATE CREATED AUTHOR 04/13/2022 [employer] DATE CREATED AUTHOR AUTHOR'S ORGANIZ ATION 05/19/2022 [facility] DATE CREATED AUTHOR AUTHOR'S ORGANIZ ATION 04/04/2024 [facility] DATE CREATED AUTHOR AUTHOR'S ORGANIZ ATION 07/01/2024 [facility] DATE CREATED AUTHOR AUTHOR'S ORGANIZ ATION 08/21/2024 [facility] Care Teams (unrecognized sec tion and content) Team Status: Active Member Role Status Dates No Primary Care Physician Family Provider Active Dr. Joanie Franco MD Primary Care Provider Active Team Status: Inactive Member Role Status Dates Dr. Joanie Franco MD Primary Care Provider, Refer ring Provider Active Varsha Beth KEYBOARD TEACHER, KEYBOARD TEACHER-C Attending Provider Active Team Status: Inactive Member Role Status Dates Dr. Joanie Franco MD Primary Care Provider Active Erwin López MD Attending Provider, Emergency Provid er Active Team Status: Inactive Member Role Status Dates Dr. Joanie Franco MD Primary Care Provider Active Varsha Beth KEYBOARD TEACHER, KEYBOARD TEACHER-C Attending Provider Active Nail Polish Brush Machine Feeder Relationship Specialty Start Date End Date Joanie Franco MD [address] [facility], [address] [place] [address] PCP - General 05/19/10 Joanie Franco MD [facility] [address] [facility], [address] [place] [address] PCP - Alfredo MUNOZO PCP 04/26/21 Team Status: Active Member Role Status Dates No Primary Care Physician Family Provider Active Team Status: Inactive Member Role Status Dates Varsha Beth KEYBOARD TEACHER, KEYBOARD TEACHER-C Attending Provider Active Nail Polish Brush Machine Feeder Relationship Specialty Start Date End Date Joanie Franco MD [facility] [address] [facility] [place] [address] PCP - General 05/19/10 Joanie Franco MD [facility] [address] [facility] [place] [address] PCP - [place] [facility] PCP 04/26/21 Nail Polish Brush Machine Feeder Relationship Specialty Start Date End Date Joanie Franco MD [address] [facility], [address] [place] [address] PCP - General 05/19/10 Joanie Franco MD [address] [facility], [address] [place] [address] PCP - [place] [facility] PCP 04/26/21 Team Status: Active Member Role Status Dates No Primary Care Physician Family Provider Active No Primary Care Physician Primary Care Provider Active Team Status: Inactive Member Role Status Dates Varsha Beth KEYBOARD TEACHER, KEYBOARD TEACHER-C Attending Provider, Referring Provider Active Team Status: Inactive Member Role Status Dates Varsha Beth KEYBOARD TEACHER, KEYBOARD TEACHER-C Attending Provider, Referring Provider Active No Primary Care Physician Primary Care Provider Active Nail Polish Brush Machine Feeder Relationship Specialty Start Date End Date Joanie Franco MD [facility] [address] [facility] [place] [address] PCP - General 05/19/10 Joanie Franco MD [facility] [address] [facility] [place] [address] PCP - [place] [facility] PCP 04/26/21 Team Status: Inactive Member Role Status Dates No Primary Care Physician Primary Care Provider, Refer ring Provider Active Varsha Beth KEYBOARD TEACHER, KEYBOARD TEACHER-C Attending Provider Active Team Status: Inactive Member Role Status Dates No Primary Care Physician Primary Care Provider Active Varsha Beth KEYBOARD TEACHER, KEYBOARD TEACHER-C Attending Provider Active Nail Polish Brush Machine Feeder Relationship Specialty Start Date End Date Joanie Franco MD [facility] [address] [facility] [place] [address] PCP - General 05/19/10 Joanie Franco MD [address] [facility], [facility] [address] [place] [address] PCP - [place] [facility] PCP 04/26/21 Nail Polish Brush Machine Feeder Relationship Specialty Start Date End Date Joanie Franco MD [address] [facility], [facility] [address] [place] [address] PCP - General 05/19/10 Joanie Franco MD [address] [facility], [facility] [address] [place] [address] PCP - [facility] [facility] PCP 04/26/21 Team Status: Active Member Role Status Dates No Primary Care Physician Family Provider Active Varsha Beth KEYBOARD TEACHER, KEYBOARD TEACHER-C Primary Care Provider Active Team Status: Inactive Member Role Status Dates Varsha Beth KEYBOARD TEACHER, KEYBOARD TEACHER-C Primary Care Provider Active Start: March 05, 2024 End: March 05, 2024 Varsha Beth KEYBOARD TEACHER, KEYBOARD TEACHER-C Attending Provider Active Start: March 05, 2024 End: March 05, 2024 Varsha Beth KEYBOARD TEACHER, KEYBOARD TEACHER-C Referring Provider Active Start: March 05, 2024 End: March 05, 2024 Team Status: Inactive Member Role Status Dates Varsha Beth KEYBOARD TEACHER, KEYBOARD TEACHER-C Primary Care Provider Active Start: March 06, 2024 End: March 06, 2024 Varsha Beth KEYBOARD TEACHER, KEYBOARD TEACHER-C Attending Provider Active Start: March 06, 2024 End: March 06, 2024 Varsha Beth KEYBOARD TEACHER, KEYBOARD TEACHER-C Referring Provider Active Start: March 06, 2024 End: March 06, 2024 Team Status: Inactive Member Role Status Dates Varsha Beth KEYBOARD TEACHER, KEYBOARD TEACHER-C Primary Care Provider Active Start: March 06, 2024 End: March 06, 2024 Varsha Beth KEYBOARD TEACHER, KEYBOARD TEACHER-C Attending Provider Active Start: March 06, 2024 End: March 06, 2024 Team Status: Inactive Member Role Status Dates Varsha Beth NP, KEYBOARD TEACHER-C Primary Care Provider Active Start: June 05, 2024 End: June 05, 2024 Varsha Beth NP, KEYBOARD TEACHER-C Attending Provider Active Start: June 05, 2024 End: June 05, 2024 Varsha Beth NP, KEYBOARD TEACHER-C Referring Provider Active Start: June 05, 2024 End: June 05, 2024 Team Status: Inactive Member Role Status Dates Varsha Beth NP, KEYBOARD TEACHER-C Primary Care Provider Active Start: August 14, 2024 End: August 14, 2024 Varsha Beth NP, KEYBOARD TEACHER-C Attending Provider Active Start: August 14, 2024 End: August 14, 2024 Varsha Beth NP, KEYBOARD TEACHER-C Referring Provider Active Start: August 14, 2024 End: August 14, 2024 Reason for Visit (unrecogniz ed section and content) Reason Comments ADHD EP. Here for follow up on ADHD and medication Reason Comments Follow-up EP. Here for follow on medications. Reason Comments Follow-up EP. Here for follow up on ADD and medication Reason Comments Follow-up EP. Here for follow up and medication. Reason Comments Follow-up EP. Here for follow up and medication. Reason Comments Well woman Exam EP. Here for WWE/PAP FOR RECORDS PERTAINING TO PATIENTS WHO ARE [...] BE BASED ON THE PRIMARY CLINICAL RECORDS. [employer] provides no warranty or guarantee of the accuracy or completeness of information in this document.
--- OUTSIDE RECORDS SUMMARY | 2024-10-09 01:01 | XMS RPT_ITS | CCD ---
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 Role Phone Shekhar LAM, Efrem Sr [...] Unavailabl Joanie Syed MD Primary Care Provider [phone] Joanie Franco MD Unavailable JOANIE FRANCO Attending Unavailable JOANIE FRANCO Primary Care Unavailable JOANIE FRANCO Attending Unavailable JOANIE FRANCO Primary Care Unavailable JOANIE FRANCO Attending Unavailable JOANIE FRANCO Primary Care Unavailable Kirit DIRECTOR MARKETING COMMUNICATIONS-C, Varsha Primary Care Provider Kirit DIRECTOR MARKETING COMMUNICATIONS-C, Varsha Attending Provider Beth DIRECTOR MARKETING COMMUNICATIONS-C, Varsha Referring Provider NAS LAM, BENJI Attending [...] Unavailable SALVADOR, LEATHA Primary Care Unavailable Beth DIRECTOR MARKETING COMMUNICATIONS-C, Varsha Primary Care Provider Beth DIRECTOR MARKETING COMMUNICATIONS-C, Varsha Attending Provider Beth DIRECTOR MARKETING COMMUNICATIONS-C, Varsha Referring Provider [phone] Beth DIRECTOR MARKETING COMMUNICATIONS, Varsha Primary Care Unavailable Beth DIRECTOR MARKETING COMMUNICATIONS, Varsha Attending Unavailable Beth DIRECTOR MARKETING COMMUNICATIONS, Varsha Referring Unavailable Beth DIRECTOR MARKETING COMMUNICATIONS, Varsha Primary Care Unavailable Beth DIRECTOR MARKETING COMMUNICATIONS, Varsha Attending Unavailable Beth DIRECTOR MARKETING COMMUNICATIONS, Varsha Primary Care Unavailable Beth DIRECTOR MARKETING COMMUNICATIONS, Varsha Attending Unavailable Beth DIRECTOR MARKETING COMMUNICATIONS, Varsha Referring Unavailable Beth DIRECTOR MARKETING COMMUNICATIONS, Varsha Primary Care Unavailable Beth DIRECTOR MARKETING COMMUNICATIONS, Varsha Attending Unavailable Beth DIRECTOR MARKETING COMMUNICATIONS, Varsha Referring Unavailable Care Physician, No Primary Primary Care Unava ilable Beth DIRECTOR MARKETING COMMUNICATIONS, Varsha Attending Unavailable Beth DIRECTOR MARKETING COMMUNICATIONS, Varsha Primary Care Unavailable Beth DIRECTOR MARKETING COMMUNICATIONS, Varsha Attending Unavailable Beth DIRECTOR MARKETING COMMUNICATIONS, Varsha Referring Unavailable Medications Current Medications Medication Drug Class(es) Dates Sig (Normalized) Sig (Original) [id number] 200 actuat albuterol 0.09 mg/actuat metered dose [...] 11:00pm Start: 05-13-2013 take 1 capsule by [facility] twice daily Amphetamine-Dextroamphet ER 20 MG Oral [...] 1:00am March 18, 2022 1:11am polymyxin b 76910 unt/ml / trimethoprim 1 mg/ml ophthalmic solution [...] 05-14-2023 Episodic Other aftercare (2 sources) Other manager intermediate (current) drug therapy; Translations: [Other nursing home (current) drug therapy] Onset: 05-14-2023 Episodic Other [...] Total, Serumon ESTROGENS,TOTAL 181 pg/mL Normal . [facility] Comment on above: Order Comment: N Result Comment: Prep ubertal < 40 Female Cycle: 1-10 Days 16 - 328 11-20 Days 34 - 501 21-30 Days 48 - 350 Post-Menopausal 40 - 244 Performed at: [facility] [address] [id number] Income Tax Analyst: Amie Wilson MD, Phone: [phone] Performed By: #### L 100.0100, L500.4050, L501.64463, L501.9520, L506.0400, L3100.5850 #### [facility] Laboratory [address] [place], [address] PROGESTERONE 4317on 08-17-19 PROGESTERONE 6.6 ng/mL Normal . [facility] Comment on above: Order Comment: N Result Comment: Foll icular phase 0.1 - 0.9 Luteal phase 1.8 - 23.9 Ovulation phase 0.1 - 12.0 First trimester 11.0 - 44.3 Second trimester 25.4 - 83.3 Third trimester 58.7 - 214.0 Postmenopausal 0.0 - 0.1 Performed at: [facility] [address] [id number] Income Tax Analyst: Michael Arevalo PhD, Phone: [phone] Performed By: #### L 100.0100, L500.4050, L501.75658, L501.9520, L506.0400, L3100.5850 #### [facility] Laboratory [address] [place], [address] CBC W/Diff, Automatedon - Absolute Lymph 4.01 X10 3/uL Normal 0.83-4.51 [facility] Comment on above: Performed By: #### L 100.0100, L500.4050, L501.80380, L501.9520, L506.0400, L3100.5850 #### [facility] Laboratory [address] [place], [address] Absolute Neut 8.1 X10 3/uL High 2.0-7.7 [facility] Comment on above: Performed By: #### L 100.0100, L500.4050, L501.11993, L501.9520, L506.0400, L3100.5850 #### [facility] Laboratory [address] [place], [address] Basophils/100 WBC (Bld) 0.3 % Normal 0-1 [facility] Comment on above: Performed By: #### L 100.0100, L500.4050, L501.90425, L501.9520, L506.0400, L3100.5850 #### [facility] Laboratory [address] [place], [address] Eosinophils/100 WBC (Bld) 0.2 % Normal 0-5 [facility] Comment on above: Performed By: #### L 100.0100, L500.4050, L501.03977, L501.9520, L506.0400, L3100.5850 #### [facility] Laboratory [address] [place], [address] Erythrocyte distribution width (RBC) [Ratio] 12.9 % Normal 11.6-14.6 [facility] Comment on above: Performed By: #### L 100.0100, L500.4050, L501.82176, L501.9520, L506.0400, L3100.5850 #### [facility] Laboratory [address] [place], [address] Hematocrit (Bld) [Volume fraction] 47.3 % High 37-47 [facility] Comment on above: Performed By: #### L 100.0100, L500.4050, L501.77272, L501.9520, L506.0400, L3100.5850 #### [facility] Laboratory [address] [place], [address] Hemoglobin (Bld) [Mass/Vol] 15.6 g/dL High 12.0-15.0 [facility] Comment on above: Performed By: #### L 100.0100, L500.4050, L501.72274, L501.9520, L506.0400, L3100.5850 #### [facility] Laboratory [address] [place], [address] IG% 0.500 Normal 0.0-0.9 [facility] Comment on above: Result Comment: IG% - Immature Granulocytes (promyelocytes, myelocytes and metamyelocytes) > 1% indicates that a LEFT SHIFT is Present. Performed By: #### L 100.0100, L500.4050, L501.50487, L501.9520, L506.0400, L3100.5850 #### [facility] Laboratory [address] [place], [address] Lymphocytes/100 WBC (Bld) 30.7 % Normal 19-41 [facility] Comment on above: Performed By: #### L 100.0100, L500.4050, L501.09353, L501.9520, L506.0400, L3100.5850 #### [facility] Laboratory [address] [place], [address] MCH (RBC) [Entitic mass] 29.9 pg Normal 27.0-32.0 [facility] Comment on above: Performed By: #### L 100.0100, L500.4050, L501.31589, L501.9520, L506.0400, L3100.5850 #### [facility] Laboratory [address] [place], [address] MCHC (RBC) [Mass/Vol] 33.0 g/dL Normal 32-36 [facility] Comment on above: Performed By: #### L 100.0100, L500.4050, L501.71852, L501.9520, L506.0400, L3100.5850 #### [facility] Laboratory [address] [place], [address] MCV (RBC) [Entitic vol] 90.6 fL Normal 81-99 [facility] Comment on above: Performed By: #### L 100.0100, L500.4050, L501.26550, L501.9520, L506.0400, L3100.5850 #### [facility] Laboratory [address] [place], [address] Monocytes/100 WBC (Bld) 6.4 % Normal 0-10 [facility] Comment on above: Performed By: #### L 100.0100, L500.4050, L501.90814, L501.9520, L506.0400, L3100.5850 #### [facility] Laboratory [address] [place], [address] Neutrophils/100 WBC (Bld) 61.9 % Normal 47-70 [facility] Comment on above: Performed By: #### L 100.0100, L500.4050, L501.80995, L501.9520, L506.0400, L3100.5850 #### [facility] Laboratory [address] [place], [address] Nucleated RBC (Bld) [#/Vol] 0 10*3/uL Normal 0-5 [facility] Comment on above: Performed By: #### L 100.0100, L500.4050, L501.33692, L501.9520, L506.0400, L3100.5850 #### [facility] Laboratory [address] [place], [address] Platelet mean volume (Bld) [Entitic vol] 9.7 fL Normal 6.2-12.0 [facility] Comment on above: Performed By: #### L 100.0100, L500.4050, L501.85344, L501.9520, L506.0400, L3100.5850 #### [facility] Laboratory [address] [place], [address] Platelets (Bld) [#/Vol] 398 10*3/uL Normal 150-450 [facility] Comment on above: Performed By: #### L 100.0100, L500.4050, L501.19249, L501.9520, L506.0400, L3100.5850 #### [facility] Laboratory [address] [place], [address] RBC (Bld) [#/Vol] 5.22 10*6/uL Normal 4.2-5.4 [facility] Comment on above: Performed By: #### L 100.0100, L500.4050, L501.25631, L501.9520, L506.0400, L3100.5850 #### [facility] Laboratory [address] [place], [address] RDW SD 42.8 fl Normal 35.1-43.9 [facility] Comment on above: Performed By: #### L 100.0100, L500.4050, L501.95532, L501.9520, L506.0400, L3100.5850 #### [facility] Laboratory [address] [place], [address] WBC (Bld) [#/Vol] 13.1 10*3/uL High 4.4-11.0 [facility] Comment on above: Performed By: #### L 100.0100, L500.4050, L501.76829, L501.9520, L506.0400, L3100.5850 #### [facility] Laboratory [address] [place], [address] FSH and LHon 08-15-2024 FSH 2.3 mIU/mL Normal [facility] Comment on above: Result Comment: FEMA LE: Follicular: 1.4 - 18.1 mIU/mL Midcycle: 3.4 - 33.4 mIU/mL Luteal: 1.5 - 9.1 mIU/mL Post Menopause: 23.0 - 116.3 mIU/mL MALE: 1.4 - 18.1 mIU/mL Performed By: #### L 100.0100, L500.4050, L501.00888, L501.9520, L506.0400, L3100.5850 #### [facility] Laboratory [address] [place], [place], [id number] LH 1.4 mIU/mL Normal [facility] Comment on above: Result Comment: FEMA LE: Follicular: 1.9-12.5 mIU/mL Midcycle: 8.7-76.3 mIU/mL Luteal: 0.5-16.9 mIU/mL Post Menopause: 15.9-54.0 mIU/mL MALE: 20-70 Years: 1.5-9.3 mIU/mL >70 Years: 3.1-34.6 mIU/mL Performed By: #### L 100.0100, L500.4050, L501.04313, L501.9520, L506.0400, L3100.5850 #### [facility] Laboratory [address] [place], [place], [id number] L509.3001on 08-15-2024 Testosterone [Mass/Vol] 27.60 ng/dL Normal 9-55 [facility] Comment on above: Performed By: #### L 100.0100, L500.4050, L501.17218, L501.9520, L506.0400, L3100.5850 #### [facility] Laboratory [address] [place], [place], [address] Absolute lymphocyte countOrd ered By: Varsha Beth on 08-14-2024 Lymphocytes Auto (Unsp spec) [#/Vol] 4.01 10*3/uL 0.83-4.51 [facility] Absolute neutrophil countOrd ered By: Varsha Beth on 08-14-2024 Neutrophils (Bld) [#/Vol] 8.1 10*3/uL High 2.0-7.7 [facility] Automated lymphocyte count a s percentage of total leukocytesOrdered By: Varsha Beth on 08-14-2024 Lymphocytes/100 WBC Auto (Unsp spec) 30.7 % 19-41 [facility] Basophil percentageOrdered B y: Varsha Beth on 08-14-2024 Basophils/100 WBC (Bld) 0.3 % 0-1 [facility] Eosinophil percentageOrdered By: Varsha Beth on 08-14-2024 Eosinophils/100 WBC (Bld) 0.2 % 0-5 [facility] Erythrocyte distribution wid th ratioOrdered By: Varsha Beth on 08-14-2024 Erythrocyte distribution width (RBC) [Ratio] 12.9 % 11.6-14.6 [facility] Erythrocyte distribution wid th standard deviationOrdered By: Varsha Beth on 08-14-2024 Erythrocyte distribution width (RBC) [Ratio] 42.8 fl 35.1-43.9 [facility] Hematocrit Auto (Bld) [Volum e fraction]Ordered By: Varsha Beth on 08-14-2024 Hematocrit (Bld) [Volume fraction] 47.3 % High 37-47 [facility] Hemoglobin measurementOrdere d By: Varsha Beth on 08-14-2024 Hemoglobin (Bld) [Mass/Vol] 15.6 g/dL High 12.0-15.0 [facility] Immature granulocytes/100 WB C Auto (Bld)Ordered By: Varsha Beth on 08-14-2024 Immature granulocytes/100 WBC (Bld) 0.500 % 0.0-0.9 [facility] Comment on above: IG% - Immature Granu locytes (promyelocytes, myelocytes and metamyelocytes) > 1% indicates that a LEFT SHIFT is Present. Laboratory - Chemistry and C hemistry - challengeOrdered By: Varsha Beth on 08-14-2024 Testosterone [Mass/Vol] 27.60 ng/dL 9-55 [facility] MCV (mean corpuscular volume ) determinationOrdered By: Varsha Beth on 08-14-2024 MCV (RBC) [Entitic vol] 90.6 fL 81-99 [facility] Mean corpuscular hemoglobin (MCH) determinationOrdered By: Varsha Beth on 08-14-2024 MCH (RBC) [Entitic mass] 29.9 pg 27.0-32.0 [facility] Mean corpuscular hemoglobin concentration (MCHC) determinationOrdered By: Varsha Beth on 08-14-2024 MCHC (RBC) [Mass/Vol] 33.0 g/dL 32-36 [facility] Mean platelet volume determi nationOrdered By: Varsha Beth on 08-14-2024 Platelet mean volume (Bld) [Entitic vol] 9.7 fL 6.2-12.0 [facility] Monocyte percentageOrdered B y: Varsha Beth on 08-14-2024 Monocytes/100 WBC (Bld) 6.4 % 0-10 [facility] Neutrophil percentageOrdered By: Varsha Beth on 08-14-2024 Neutrophils/100 WBC (Bld) 61.9 % 47-70 [facility] Nucleated red blood cell per centageOrdered By: Varsha Beth on 08-14-2024 Nucleated RBC/100 WBC (Bld) [Ratio] 0 % 0-5 [facility] Platelet countOrdered By: Do ra Beth on 08-14-2024 Platelets (Bld) [#/Vol] 398 10*3/uL 150-450 [facility] RBC Auto (Bld) [#/Vol]Ordere d By: Varsha Beth on 08-14-2024 RBC (Bld) [#/Vol] 5.22 10*6/uL 4.2-5.4 [facility] Serum or plasma estrogen alize surement (mass/volume)Ordered By: Varsha Beth on 08-14-2024 Estrogen [Mass/Vol] 181 pg/mL . [facility] Comment on above: Prepubertal < 40 Fem john Cycle: 1-10 Days 16 - 328 11-20 Days 34 - 501 21-30 Days 48 - 350 Post-Menopausal 40 - 244Performed at: [address] [id number] Director: Amie Wilson MD, Phone: [phone] White blood cell (WBC) count Ordered By: Varsha Beth on 08-14-2024 WBC (Bld) [#/Vol] 13.1 10*3/uL High 4.4-11.0 [facility] Physician Progress No lasha 06-30-2024 [facility] Physician Progress Note BIN BILL :1980 Registration Date:06/30/2024 Assessment/Plan This Visit Diagnosis Breast cancer screening by mammogram Z12.31 Ordered: MAMM SCRN BI XENIA, 06/30/2024, Routine, SCREENING, Wheelchair, Isolation Precautions: NONE, Breast cancer screening by mammogram Colon cancer screening Z12.11 Ordered: AMB Cologuard, performed per outside lab [id number], 06/30/2024 14:09:00 EDT, Colon cancer screening History of hysterectomy for benign disease Z90.710 Ordered: AMB Postop followup during global period 30528, 06/30/2024 14:00:00 EDT, Postoperative state / History [...] effort Extremities: no edema Psychiatric: Mood: normal BARKER PEELER: Vital signs reviewed External genitalia: normal, no lesions Urethra: normal meatus Vagina: cuff intact, sutures still present, white discharge, vault normal Cervix: absent Uterus: absent BARKER PEELER Additional Details Menstrual History Menstrual StatusHysterectomy BARKER PEELER Screening Date of Last Pap Smear12/06/2023 Last Pap Result, Pt StatedNegative Last Pap Result CommentNeg HPV Date of Last Mammogram, Pt StatedNever Contraception Contraception MethodSterilization for contraception Sterilization TypeHysterectomy OB History History (2,0,0,2) # 1 Baby 1 Outcome Date: 06/17/1998 Outcome or Result: Vaginal Gest Age: 40 weeks Outcome: Live Sex: Male Hospital: [facility] Dr [place] # 2 Baby 1 Outcome Date: 12/06/2003 Outcome or Result: Vaginal Gest Age: 40 weeks Outcome: Live Sex: Male Hospital: [facility] Dr [place] Problem List/Past Medical History Ongoing [...] BEFORE BREAKFAST (more content not included)... Normal [facility] Anion gap in Serum or Plasma Ordered By: Varsha Beth on 06-05-2024 Anion gap [Moles/Vol] 16 mmol/L High 5-15 [facility] BUN/creatinine ratioOrdered By: Varsha Beth on 06-05-2024 Urea nitrogen/Creatinine [Mass ratio] 9.8 mg/mg Low 10-20 [facility] Bilirubin, totalOrdered By: Varsha Beth on 06-05-2024 Bilirubin [Mass/Vol] 0.30 mg/dL 0.00-1.30 [facility] CBC W/Diff, Automatedon 05-24 Absolute Neut Normal 2.0-7.7 [facility] Comment on above: Result Comment: This specimen has been REJECTED due to Laboratory criteria: Clotted. EMAIL SENT has been notified of need of recollection. 06/05/24 2223 Mario Condon Performed By: #### L 100.0100, L500.4050, L501.17727, L501.9520, L506.0400, L3100.5850 #### [facility] Laboratory [address] [place], [address] HCT Normal 37-47 [facility] Comment on above: Result Comment: This specimen has been REJECTED due to Laboratory criteria: Clotted. EMAIL SENT has been notified of need of recollection. 06/05/242227 Mario Groton Performed By: #### L 100.0100, L500.4050, L501.13308, L501.9520, L506.0400, L3100.5850 #### [facility] Laboratory [address] [place], [address] HGB Normal 12.0-15.0 [facility] Comment on above: Result Comment: This specimen has been REJECTED due to Laboratory criteria: Clotted. EMAIL SENT has been notified of need of recollection. 06/05/242227 Mario Groton Performed By: #### L 100.0100, L500.4050, L501.75547, L501.9520, L506.0400, L3100.5850 #### [facility] Laboratory [address] [place], [address] MCH Normal 27.0-32.0 [facility] Comment on above: Result Comment: This specimen has been REJECTED due to Laboratory criteria: Clotted. EMAIL SENT has been notified of need of recollection. 06/05/248 Mario Roseanna Performed By: #### L 100.0100, L500.4050, L501.50587, L501.9520, L506.0400, L3100.5850 #### [facility] Laboratory [address] [place], [address] MCHC Normal 32-36 [facility] Comment on above: Result Comment: This specimen has been REJECTED due to Laboratory criteria: Clotted. EMAIL SENT has been notified of need of recollection. 06/05/248 Mario Groton Performed By: #### L 100.0100, L500.4050, L501.46290, L501.9520, L506.0400, L3100.5850 #### [facility] Laboratory [address] [place], [address] MCV Normal 81-99 [facility] Comment on above: Result Comment: This specimen has been REJECTED due to Laboratory criteria: Clotted. EMAIL SENT has been notified of need of recollection. 06/05/242227 Mario Roseanna Performed By: #### L 100.0100, L500.4050, L501.59540, L501.9520, L506.0400, L3100.5850 #### [facility] Laboratory [address] [place], [address] NEUT% Normal 47-70 [facility] Comment on above: Result Comment: This specimen has been REJECTED due to Laboratory criteria: Clotted. EMAIL SENT has been notified of need of recollection. 06/05/242227 Mario Groton Performed By: #### L 100.0100, L500.4050, L501.57308, L501.9520, L506.0400, L3100.5850 #### [facility] Laboratory [address] [place], [address] PLT Normal 150-450 [facility] Comment on above: Result Comment: This specimen has been REJECTED due to Laboratory criteria: Clotted. EMAIL SENT has been notified of need of recollection. 06/05/242227 Mario Roseanan Performed By: #### L 100.0100, L500.4050, L501.04295, L501.9520, L506.0400, L3100.5850 #### [facility] Laboratory [address] [place], [address] RBC Normal 4.2-5.4 [facility] Comment on above: Result Comment: This specimen has been REJECTED due to Laboratory criteria: Clotted. EMAIL SENT has been notified of need of recollection. 06/05/242227 Mario Roseanna Performed By: #### L 100.0100, L500.4050, L501.24896, L501.9520, L506.0400, L3100.5850 #### [facility] Laboratory [address] [place], [address] RDW CV Normal 11.6-14.6 [facility] Comment on above: Result Comment: This specimen has been REJECTED due to Laboratory criteria: Clotted. EMAIL SENT has been notified of need of recollection. 06/05/242227 Mario Groton Performed By: #### L 100.0100, L500.4050, L501.68053, L501.9520, L506.0400, L3100.5850 #### [facility] Laboratory [address] [place], [address] RDW SD Normal 35.1-43.9 [facility] Comment on above: Result Comment: This specimen has been REJECTED due to Laboratory criteria: Clotted. EMAIL SENT has been notified of need of recollection. 06/05/242227 Mario Roseanna Performed By: #### L 100.0100, L500.4050, L501.81525, L501.9520, L506.0400, L3100.5850 #### [facility] Laboratory [address] [place], [address] WBC Normal 4.4-11.0 [facility] Comment on above: Result Comment: This specimen has been REJECTED due to Laboratory criteria: Clotted. EMAIL SENT has been notified of need of recollection. 06/05/242227 Mario Roseanna Performed By: #### L 100.0100, L500.4050, L501.70853, L501.9520, L506.0400, L3100.5850 #### [facility] Laboratory [address] [place], [address] Calculated very low density lipoprotein (VLDL) cholesterol measurementOrdered By: Varsha Beth on 06-05-2024 Calculated very low density lipoprotein (VLDL) cholesterol measurement 45 mg/dL High 5-40 [facility] VLDL Cholesterol 45 mg/dL High 5-40 [facility] Carbon dioxide, total [Moles /volume] in Central venous bloodOrdered By: Varsha Beth on 06-05-2024 CO2 [Moles/Vol] 22.3 mmol/L 21.0-32.0 [facility] Chloride assayOrdered By: Do ra Beth on 06-05-2024 Chloride [Moles/Vol] 100 mmol/L 98-108 [facility] Comprehensive Metabolic Prof ilon 06-05-2024 Albumin [Mass/Vol] 4.8 g/dL Normal 3.5-5.0 [facility] Comment on above: Performed By: #### L 100.0100, L500.4050, L501.78950, L501.9520, L506.0400, L3100.5850 #### [facility] [address] [place], [address] Albumin/Globulin [Mass ratio] 1.5 {ratio} Normal 0.9-2.4 [facility] Comment on above: Performed By: #### L 100.0100, L500.4050, L501.06445, L501.9520, L506.0400, L3100.5850 #### [facility] [address] [place], [address] ALK PHOS 78 U/L Normal 35-104 [facility] Comment on above: Performed By: #### L 100.0100, L500.4050, L501.41031, L501.9520, L506.0400, L3100.5850 #### [facility] Laboratory [address] [place], [address] ALT [Catalytic activity/Vol] 27 U/L Normal <=34 [facility] Comment on above: Performed By: #### L 100.0100, L500.4050, L501.86990, L501.9520, L506.0400, L3100.5850 #### [facility] [address] [place], [address] AST [Catalytic activity/Vol] 25 U/L Normal <=31 [facility] Comment on above: Result Comment: Hemo lysis present, Results??could be affected. ?? Performed By: #### L 100.0100, L500.4050, L501.12412, L501.9520, L506.0400, L3100.5850 #### [facility] [address] [place], [address] Bilirubin [Mass/Vol] 0.30 mg/dL Normal 0.00-1.30 [facility] Comment on above: Performed By: #### L 100.0100, L500.4050, L501.14790, L501.9520, L506.0400, L3100.5850 #### [facility] Laboratory [address] [place], [address] BUN/CRE 9.8 RATIO Low 10-20 [facility] Comment on above: Performed By: #### L 100.0100, L500.4050, L501.56511, L501.9520, L506.0400, L3100.5850 #### [facility] Laboratory [address] [place], [address] Calcium [Mass/Vol] 10.9 mg/dL Normal 7.6-11.0 [facility] Comment on above: Performed By: #### L 100.0100, L500.4050, L501.32882, L501.9520, L506.0400, L3100.5850 #### [facility] [address] [place], [address] Chloride [Moles/Vol] 100 mmol/L Normal 98-108 [facility] Comment on above: Performed By: #### L 100.0100, L500.4050, L501.50065, L501.9520, L506.0400, L3100.5850 #### [facility] [address] [place], [address] CO2 [Moles/Vol] 22.3 mmol/L Normal 21.0-32.0 [facility] Comment on above: Performed By: #### L 100.0100, L500.4050, L501.55926, L501.9520, L506.0400, L3100.5850 #### [facility] [address] [place], [address] Creatinine [Mass/Vol] 0.90 mg/dL Normal 0.70-1.20 [facility] Comment on above: Performed By: #### L 100.0100, L500.4050, L501.52704, L501.9520, L506.0400, L3100.5850 #### [facility] [address] [place], [address] GAP 16 High 5-15 [facility] Comment on above: Performed By: #### L 100.0100, L500.4050, L501.13480, L501.9520, L506.0400, L3100.5850 #### [facility] [address] [place], [address] GFR/1.73 sq M.predicted among non-blacks MDRD (S/P/Bld) [Vol rate/Area] 81 mL/min/{1.73_m2} Normal >60 [facility] Comment on above: Result Comment: mL/m in/1.73m2 CKD-EPI Creatinine Equation (2020) Performed By: #### L 100.0100, L500.4050, L501.89522, L501.9520, L506.0400, L3100.5850 #### [facility] [address] [place], [address] Globulin (S) [Mass/Vol] 3.2 g/dL Normal 2.2-4.2 [facility] Comment on above: Performed By: #### L 100.0100, L500.4050, L501.63340, L501.9520, L506.0400, L3100.5850 #### [facility] [address] [place], [address] Glucose [Mass/Vol] 98 mg/dL Normal 70-99 [facility] Comment on above: Performed By: #### L 100.0100, L500.4050, L501.37608, L501.9520, L506.0400, L3100.5850 #### [facility] [address] [place], [address] Potassium [Moles/Vol] 4.0 mmol/L Normal 3.3-5.1 [facility] Comment on above: Result Comment: Hemo lysis present, Results??could be affected. ?? Performed By: #### L 100.0100, L500.4050, L501.79725, L501.9520, L506.0400, L3100.5850 #### [facility] [address] [place], [address] Sodium [Moles/Vol] 138 mmol/L Normal 133-145 [facility] Comment on above: Performed By: #### L 100.0100, L500.4050, L501.64998, L501.9520, L506.0400, L3100.5850 #### [facility] [address] [place], [address] T PROT 8.1 g/dL Normal 5.9-8.4 [facility] Comment on above: Performed By: #### L 100.0100, L500.4050, L501.46209, L501.9520, L506.0400, L3100.5850 #### [facility] [address] [place], [address] Urea nitrogen [Mass/Vol] 9 mg/dL Normal 4-19 [facility] Comment on above: Performed By: #### L 100.0100, L500.4050, L501.66157, L501.9520, L506.0400, L3100.5850 #### [facility] Laboratory [address] [place], [place], [address] Free D5Uadzbaz By: Varsha wright on 06-05-2024 Free T3 [Mass/Vol] 3.0 pg/mL 2.18-3.98 [facility] Free Triiodothyronine (T3) pg/dL 3.0 pg/mL 2.18-3.98 [facility] Free T3on 06-05-2024 Free T3 [Mass/Vol] 3.0 pg/mL Normal 2.18-3.98 [facility] Comment on above: Performed By: #### L 100.0100, L500.4050, L501.16404, L501.9520, L506.0400, L3100.5850 #### [facility] Laboratory [address] [place], [place], [address] GFR/1.73 sq M.predicted leonel g non-blacks MDRD (S/P/Bld) [Vol rate/Area]Ordered By: Varsha Beth on 06-05-2024 Estimated GFR (MDRD) Non-Af Amer 81 >60 [facility] Comment on above: mL/min/1.73m2 CKD-EP I Creatinine Equation (2020) Glomerular filtration rate ( GFR) estimation/1.73 sq m using serum, plasma, or whole bOrdered By: Varsha Beth on 06-05-2024 GFR/1.73 sq M.predicted among non-blacks MDRD (S/P/Bld) [Vol rate/Area] 81 mL/min/{1.73_m2} >60 [facility] Comment on above: mL/min/1.73m2 CKD-EP I Creatinine Equation (2020) LDL calc ser/plasOrdered By: Varsha Beth on 06-05-2024 Cholesterol in LDL [Mass/Vol] 135 mg/dL [facility] Comment on above: Pgmakqbuvr=397-289 m g/dL & Higher Teka=443 mg/dL or greater LDL Cholesterol, Calculated 135 mg/dL [facility] Comment on above: Spanzqoymv=575-449 m g/dL & Higher Rnmk=408 mg/dL or greater Laboratory - Chemistry and C hemistry - challengeOrdered By: Varsha Beth on 06-05-2024 AST [Catalytic activity/Vol] 25 U/L <32 [facility] Comment on above: Hemolysis present, R esults could be affected. Lipid Profileon 06-05-2024 CHOL:HDL 4.10 Normal [facility] Comment on above: Performed By: #### L 100.0100, L500.4050, L501.48455, L501.9520, L506.0400, L3100.5850 #### [facility] Laboratory [address] [place], [address] Cholesterol [Mass/Vol] 238 mg/dL High <=200 [facility] Comment on above: Result Comment: Chol esterol level, Desirable <200 mg/dL Borderline high cholesterol 200-239 mg/dL High cholesterol >=240 mg/dL Recommendations of the NCEP Adult Treatment Panel for the following risk-cutoff thresholds for the [place] population. Performed By: #### L 100.0100, L500.4050, L501.34078, L501.9520, L506.0400, L3100.5850 #### [facility] [address] [place], [address] Cholesterol in HDL [Mass/Vol] 58 mg/dL Normal [facility] Comment on above: Result Comment: Ale onal Cholesterol Education Program (NCEP) guidelines: <40 mg/dL: Low HDL-cholesterol (major risk factor for CHD) >= 60 mg/dL: High HDL-cholesterol (negative risk factor for CHD) HDL-cholesterol is affected by a number of factors, e.g. smoking, exercise, hormones, sex and age. Performed By: #### L 100.0100, L500.4050, L501.26455, L501.9520, L506.0400, L3100.5850 #### [facility] Laboratory [address] [place], [address] Cholesterol in LDL [Mass/Vol] 135 mg/dL Normal [facility] Comment on above: Result Comment: Bord pjxwko=233-540 mg/dL Higher Jbpz=214 mg/dL or greater Performed By: #### L 100.0100, L500.4050, L501.18960, L501.9520, L506.0400, L3100.5850 #### [facility] [address] [place], [address] Cholesterol in VLDL [Mass/Vol] 45 mg/dL High 5-40 [facility] Comment on above: Performed By: #### L 100.0100, L500.4050, L501.88573, L501.9520, L506.0400, L3100.5850 #### [facility] Laboratory [address] [place], [address] Triglyceride [Mass/Vol] 223 mg/dL High [facility] Comment on above: Result Comment: The drugs N-Acetylcysteine and Metamizole may falsely depress this assay. Normal range: <150 mg/dL Borderline High: 150-199 mg/dL High: 200-499 mg/dL Very High: >500 mg/dL Performed By: #### L 100.0100, L500.4050, L501.45605, L501.9520, L506.0400, L3100.5850 #### [facility] [address] [place], [address] Potassium (Unsp spec) [Mass/ Vol]Ordered By: Varsha Beth on 06-05-2024 Potassium [Moles/Vol] 4.0 mmol/L 3.3-5.1 [facility] Comment on above: Hemolysis present, R esults could be affected. Potassium measurement (mass/ volume)Ordered By: Varsha Beth on 06-05-2024 Potassium (Unsp spec) [Mass/Vol] 4.0 mmol/L 3.3-5.1 [facility] Comment on above: Hemolysis present, R esults could be affected. Screening total cholesterol/ high density lipoprotein (HDL) cholesterol ratioOrdered By: Varsha Beth on 06-05-2024 Cholesterol.total/Cholest rell in HDL [Mass ratio] 4.10 {ratio} [facility] Serum creatinine measurement (mass/volume)Ordered By: Varsha Beth on 06-05-2024 Creatinine [Mass/Vol] 0.90 mg/dL 0.70-1.20 [facility] Serum globulin measurementOr dered By: Varsha Beth on 06-05-2024 Globulin (S) [Mass/Vol] 3.2 g/dL 2.2-4.2 [facility] Serum glucose measurement (m ass/volume)Ordered By: Varsha Beth on 06-05-2024 Glucose [Mass/Vol] 98 mg/dL 70-99 [facility] Serum or plasma alanine allen otransferase (ALT) measurementOrdered By: Varsha Beth on 06-05-2024 ALT [Catalytic activity/Vol] 27 U/L <35 [facility] Serum or plasma albumin raven urement (mass/volume)Ordered By: Varsha Beth on 06-05-2024 Albumin [Mass/Vol] 4.8 g/dL 3.5-5.0 [facility] Serum or plasma albumin/glob ulin mass ratioOrdered By: Varsha Beth on 06-05-2024 Albumin/Globulin [Mass ratio] 1.5 {ratio} 0.9-2.4 [facility] Serum or plasma alkaline praveen sphatase measurementOrdered By: Varsha Beth on 06-05-2024 ALP [Catalytic activity/Vol] 78 U/L 35-104 [facility] Serum or plasma calcium raven urement (mass/volume)Ordered By: Varsha Beth on 06-05-2024 Calcium [Mass/Vol] 10.9 mg/dL 7.6-11.0 [facility] Serum or plasma cholesterol in HDL measurement (mass/volume)Ordered By: Varsha Beth on 06-05-2024 Cholesterol in HDL [Mass/Vol] 58 mg/dL >40 [facility] Comment on above: National Cholesterol Education Program (NCEP) guidelines:<40 mg/dL: Low HDL-cholesterol (major risk factor for CHD)>= 60 mg/dL: High HDL-cholesterol (negative risk factor for CHD)HDL-cholesterol is affected by a number of factors, e.g. smoking, exercise, hormones, sex and age. Serum or plasma cholesterol measurement (mass/volume)Ordered By: Varsha Beth on 06-05-2024 Cholesterol [Mass/Vol] 238 mg/dL High <201 [facility] Comment on above: Cholesterol level, D esirable <200 mg/dLBorderline high cholesterol 200-239 mg/dLHigh cholesterol >=240 mg/dLRecommendations of the NCEP Adult Treatment Panel for the following risk-cutoff thresholds for the [place] population. Serum or plasma urea nitroge n measurement (mass/volume)Ordered By: Varsha Beth on 06-05-2024 Urea nitrogen [Mass/Vol] 9 mg/dL 4-19 [facility] Sodium levelOrdered By: Varsha Beth on 06-05-2024 Sodium [Moles/Vol] 138 mmol/L 133-145 [facility] T4 Free Directon 06-05-2024 T4 FREE DIRECT 1.50 ng/dL High 0.76-1.46 [facility] Comment on above: Performed By: #### L 100.0100, L500.4050, L501.23128, L501.9520, L506.0400, L3100.5850 #### [facility] Laboratory [facility] [place] [address], [address] T4 freeOrdered By: Varsha wright on 06-05-2024 Free T4 [Mass/Vol] 1.50 ng/dL High 0.76-1.46 [facility] TSH DL <= 0.005 mIU/L QnOrde red By: Varsha Beth on 06-05-2024 Thyroid Stimulating Hormone (TSH) 1.020 uIU/mL 0.300-4.200 [facility] TSH Qn 1.020 uIU/mL 0.300-4.200 [facility] Thyroid Stim Hormone (TSH)on 06-05-2024 TSH 1.020 uIU/mL Normal 0.300-4.200 [facility] Comment on above: Performed By: #### L 100.0100, L500.4050, L501.67121, L501.9520, L506.0400, L3100.5850 #### [facility] [place], [address] Total proteinOrdered By: Jaspal Beth on 06-05-2024 Protein [Mass/Vol] 8.1 g/dL 5.9-8.4 [facility] Triglycerides measurementOrd ered By: Varsha Beth on 06-05-2024 Triglyceride [Mass/Vol] 223 mg/dL High <199 [facility] Comment on above: The drugs N-Acetylcy steine and Metamizole may falsely depress this assay. Normal range: <150 mg/dLBorderline High: 150-199 mg/dLHigh: 200-499 mg/dLVery High: >500 mg/dL [facility] Physician Progress No lasha 05-29-2024 [facility] Physician Progress Note BIN BILL :1980 Registration Date:05/29/2024 Assessment/Plan This Visit Diagnosis Postoperative state Z98.890 Ordered: AQUILES Postop followup during global period 40300, 05/29/2024 15:00:00 EST, Postoperative state Medication Reconciliation [...] the past: No (05/29/24 15:07:00) incisions: c/d/i BARKER PEELER Additional Details Menstrual History Menstrual StatusHysterectomy(Rec orded: 05/29/2024 15:07 EST) Menstrual StatusHysterectomy(Rec orded: 05/29/2024 15:07 EST) BARKER PEELER Screening Date of Last Pap Smear12/06/2023 Last Pap Result, Pt StatedNegative Last Pap Result CommentNeg HPV Date of Last Mammogram, Pt StatedNever Contraception Contraception MethodSterilization for contraception Sterilization TypeHysterectomy OB History History (2,0,0,2) # 1 Baby 1 Outcome Date: 06/17/1998 Outcome or Result: Vaginal Gest Age: 40 weeks Outcome: Live Sex: Male Hospital: [facility] Dr Mullen # 2 Baby 1 Outcome Date: 12/06/2003 Outcome or Result: Vaginal Gest Age: 40 weeks Outcome: Live Sex: Male Hospital: [facility] Dr Milan Problem List/Past Medical History Ongoing Faint heart murmur Menorrhagia Palpitations Historical Procedure/Surgical History Total laparoscopic hysterectomy, bilateral salpingectomy - Fibroid uterus, Abnormal uterine bleedin05/19/24: NAS LAM FACOG, BENJI pilonidal cyst: 2017 Hysteroscopy, D&C, Ablation: 2008 Cologard - Never Colonoscopy - Never Medications acetaminophen-hydrocod one(acetaminophen-HYDR Ocodone 325 mg-5 mg oral tablet), 1 tabs, ORAL, [id number], PRN atomoxetine(Strattera 80 mg oral capsule), 80 [...] oral tablet), 50 mg= 1 tabs, ORAL, [id number], PRN trazodone = Desyrel(traZODone 100 mg oral [...] History D (more content not included)... Normal [facility] Phone Msgon 05-23-2024 Phone Msg - From: Deb Hermosillo Sent: 05/23/2024 14:40:32 EST Subject: RESCHEDULE Caller Name: BIN BILL; Caller Number: Shannan L/V/M TO RESCHEDULE DO TO DR. Gallardo OUT OF OFFICE THE DATE. LOOKING TO SCHEDULE ON 05/29/2024 AT 14:50 Normal [facility] SURGICAL PATH REPORTon 05-22 SURGICAL PATH REPORT [facility] Department of Pathology [address] [place] [address] [phone] Name: BIN BILL : 1980 Financial [id number] Number: Gender Female [facility] : n: Admit 43 years Attending BENJI MILAN MD, FACOG Age: Provider: Ordering BENJI MILAN MD, FACOG Provider: Consulti Surgical Pathology Report ng: ACCESSION: COLLECTED DATE/TIME: RECEIVED DATE/TIME: PATHOLOGIST: [id number] 05/19/2024 12:01 EST 05/19/2024 13:32 EST SANTIAGO [...] change. Immunohistochemistry staining shows positive ER negative HI and negative for Napsin A and described [...] ____ Print 05/26/2024 10:07 EST Number: Date/Time: [facility] Department of Pathology [address] [place] [id number] Name: BIN BILL : 1980 [facility] [id number] Number: Gender Female [facility] : n: Admit 43 years Attending BENJI MILAN MD, FACOG Age: Provider: Ordering BENJI MILAN MD, FACOG Provider: Consulti Surgical Pathology Report ng: ACCESSION: COLLECTED DATE/TIME: RECEIVED DATE/TIME: PATHOLOGIST: [id number] 05/19/2024 12:01 EST 05/19/2024 13:32 EST SANTIAGO [...] measures up to 2.5 cm in thickness. Crushing Machine Operator sections are submitted under the following designations: [...] is based on a microscopic exam of door to door sales representative sections. NOTE: One or more (more content not included)... Normal [facility] Comment on above: Performed By: #### [id number] #### [facility] Services [address] [place] [id number] Certified Art Therapist: Landon Calabrese MD Phone Msgon 05-21-2024 Phone Msg Entered by BENJI MILAN MD, FACOG on May 21, 2024 13:49:48 EST From: BENJI MILAN MD, FACOG To: [id number] Sent: 05/21/2024 13:49:48 EST Subject: Medication Management Not Approved: Refill not appropriate acetaminophen-hydrocod one (hydrocodone 5 mg-acetaminophen 325 mg tablet) TAKE 1 TABLET BY MOUTH EVERY 6 HOURS NEEDED FOR PAIN FOR 5 DAYS Qty: 20 tabs Days Supply: 5 Refills: 0 Substitutions Allowed Route To Pharmacy - [id number] From: [id number] To: BENJI MILAN MD Sent: May 21, 2024 12:48:05 PM EST Subject: Medication Management Due: May 22, 2024 6:46:54 AM EST On Hold Pending Signature Drug: acetaminophen-hydrocod one (acetaminophen-HYDROco done 325 mg-5 mg oral tablet), 1 tabs ORAL [id number],x5 days,PRN:Mild Pain Quantity: 20 tabs Days Supply: 0 Refills: 0 Substitutions Allowed Notes from Pharmacy: Dispensed Drug: acetaminophen-hydrocod one (acetaminophen-HYDROco done 325 mg-5 mg oral tablet), TAKE 1 TABLET BY MOUTH EVERY 6 HOURS NEEDED FOR PAIN FOR 5 DAYS Quantity: 20 tabs Days Supply: 5 Refills: 0 Substitutions Allowed Notes from Pharmacy: Normal [facility] Anesthesiaon 05-19-2024 Anesthesia Patient: BIN BILL Age: [...] Postoperative hydration status: euvolemic. Notes: normothermia. Normal [facility] Anesthesia Patient: BIN BILL Age: 43 years [...] mg-325 mg oral tablet 1 tabs, ORAL, [id number] Strattera 80 mg oral capsule 80 mg = 1 caps, ORAL, DAILY traMADol 50 mg oral tablet 50 mg = 1 tabs, PRN, ORAL, [id number] traZODone 100 mg oral tablet 200 mg [...] Regular rhythm, No murmur. Assessment and Plan [place] [employer] Anesthesi[employer] (ASA) physical status classification: [...] PARDEEP Positive Screen and Counseling: No. Normal [facility] HCTon 05-19-2024 Hematocrit (Bld) [Volume fraction] 45.5 % Normal 36.0-46.0 [facility] Comment on above: Performed By: #### 1 [id number] #### [facility] Services [address] [place], [place] [id number] Certified Art Therapist: Landon Calabrese MD Operative Reporton Operative Report [...] MD, FACOG (Surgeon Primary) Martha(Secondary) Indication for Manager Mobile Given the inherent complexity of this surgery, a second surgeon or a surgically skilled Physician Instructor Hairspring was necessary for the successful completion of this entire operative procedure. The executive sales assistant was essential for safe and proper [...] at the end of the procedure. Normal [facility] POC Glucoseon 05-19-2024 Glucose [Mass/Vol] 102 mg/dL High 72-100 [facility] Comment on above: Performed By: #### 1 [id number] ####[facility] [id number] [place] [id number] Medical Director: Landon Calabrese MD DVT/VTE Risk [...] Rodas RN - 05/08/2024 13:22 EST Normal [facility] Preadmission Testing Progres s Noteon 05-08-2024 Preadmission Testing Progress Note VTE risk assessment and order sheet faxed to Dr. Milan for review. Normal [facility] Physician Progress No lasha 04-10-2024 [facility] Physician Progress Note LANDYBIN :1980 Registration Date:04/10/2024 Assessment/Plan This Visit Diagnosis Abnormal uterine bleeding N93.9 Plan for NOE ANDUJAR Ordered: AMB Ultrasound, transvaginal [id number], 04/10/2024 08:01:00 EST, Abnormal uterine bleeding, 1 [...] effort Extremities: no edema Psychiatric: Mood: normal BARKER PEELER Additional Details Menstrual History Menstrual StatusProphylaxis BARKER PEELER Screening Date of Last Pap Smear12/06/2023 Last Pap Result, Pt StatedNegative Last Pap Result CommentNeg HPV Date of Last Mammogram, Pt StatedNever Contraception Contraception MethodSterilization for contraception Sterilization TypeTubal ligation OB History History (2,0,0,2) # 1 Baby 1 Outcome Date: 06/17/1998 Outcome or Result: Vaginal Gest Age: 40 weeks Outcome: Live Sex: Male Hospital: [facility] Dr Mullen # 2 Baby 1 Outcome Date: 12/06/2003 Outcome or Result: Vaginal Gest Age: 40 weeks Outcome: Live Sex: Male Hospital: [facility] Dr Milan Problem List/Past Medical History Ongoing [...] of abla (more content not included)... Normal [facility] Ambulatory Clinical Summaryo n 04-10-2024 Ambulatory Clinical Summary BIN BILL :1980 Registration Date:04/10/2024 Ambulatory Visit Instructions Your Diagnosis Abnormal uterine bleeding Tests Performed US TV ECHO NON OB OFFICE READ Your Care Team Attending Physician - NAS LAM FACOG, BENJI Primary Care Physician - JOANIE FRANCO Referring Physician - TOY PERDMOO MD Procedures Performed pilonidal cyst (2016) Hysteroscopy, [...] for visit Day With Date Time Where [facility] Scheduled Surgery SW-LAPAROSCOPIC ASSISTED VAGINAL HYSTERECTOMY, BILATERAL SALPINGECTOMY (DR. MCKENNA ASSIST) Sunday Otilia Mckenna DO May 19, 2024 11:45 [facility] [address] [facility] [address] [facility] ZIP:[id number] Surgery SundayMay 19, 2024 12:00 pm EDT [facility] ZIP: Post OP - 2 Weeks TWO WEEK POST OP NOE ANDUJAR Sunday Benji Milan MD June 03, 2024 11:00 am [facility] [address] [place] [address] [address] [facility] ZIP:[id number] Medications What How Much When Why Instructions [...] call to get immediate medical attention! Normal [facility] Comprehensive Intake - Texto n 04-10-2024 Comprehensive [...] year Ekta Sanz 04/10/2024 14:38 EST Normal [facility] BARKER PEELER Visit - Texton BARKER PEELER Visit - Text BARKER PEELER Visit Entered On : 04/10/2024 14:43 EST Performed On: 04/10/2024 14:43 EST by Ekta Sanz BARKER PEELER Menstrual History Menstrual Status : Prophylaxis Ekta Sanz 04/10/2024 14:43 EST BARKER PEELER Screenings Date of Last Pap Smear : 12/06/2023 Last Pap Result : Negative Last Pap Result Comment : Neg HPV Date of Last Mammogram : Never Ekta Sanz 04/10/2024 14:43 EST Contraception Contraception Method : Sterilization for contraception Sterilization Type : Tubal ligation Ekta Sanz 04/10/2024 14:43 EST Normal [facility] US TV ECHO NON OB OFFICE TEOFILO [...] seen. Impression: Fibroid uterus. Non-visualized ovaries. Normal [facility] Comment on above: Order Comment: Order ed on Fin# [id number] Result Comment: Tech nologist: DM Dictated By: BENJI MILAN MD, FACOG Signed By: BENJI MILAN MD, FACOG Transcribed: 04.10.2024 14:20 Signed Out: 04/10/24 14:20:52 Phone Msgostef 03-25-2024 Phone Msg - From: Deb Hermosillo Sent: 03/25/2024 09:55:37 EST Subject: SURGERY Caller Name: BIN BILL; Caller Number: H Called left voice mail, need to change the date of her procedure with Dr. Milan. Normal [facility] Absolute neutrophil countOrd ered By: Varsha Beth on 03-06-2024 Neutrophils (Bld) [#/Vol] 8.5 10*3/uL High 2.0-7.7 [facility] Albumin to globulin ratioOrd ered By: Varsha Beth on 03-06-2024 Albumin/Globulin [Mass ratio] 1.1 {ratio} 0.9-2.4 [facility] [place] Basophil percentageOrdered B y: Varsha Beth on 03-06-2024 Basophils/100 WBC (Bld) 0.8 % 0-1 [facility] Bilirubin, totalOrdered By: Varsha Beth on 03-06-2024 Bilirubin [Mass/Vol] 0.30 mg/dL 0.20-1.00 [facility] Comment on above: For patients on eltr ombopag therapy, use of [place] TBIL is not recommended. Blood urea nitrogen (BUN)/cr eatinine ratioOrdered By: Varsha Beth on 03-06-2024 Urea nitrogen/Creatinine [Mass ratio] 5.5 mg/mg Low 10-20 [facility] CBC W/Diff, Automatedon 02-23 SMEAR COMMENT SCANNED Normal [facility] Comment on above: Result Comment: LYMP HOCYTOSIS NOTED Performed By: #### L 100.0100, L500.4050, L501.65018, L501.9520, L506.0400, L3100.5850 #### [facility] Laboratory [address] [place], [address] Carbon dioxide measurementOr dered By: Varsha Beth on 03-06-2024 CO2 [Moles/Vol] 26.0 mmol/L 21.0-32.0 [facility] Chloride measurementOrdered By: Varsha Beth on 03-06-2024 Chloride [Moles/Vol] 103 mmol/L 98-107 [facility] Comprehensive Metabolic Prof ilon 03-06-2024 Albumin [Mass/Vol] 4.2 g/dL Normal 3.2-5.0 [facility] Comment on above: Performed By: #### L 100.0100, L500.4050, L501.37180, L501.9520, L506.0400, L3100.5850 #### [facility] Laboratory [address] [place], [address] Albumin/Globulin [Mass ratio] 1.1 {ratio} Normal 0.9-2.4 [facility] Comment on above: Performed By: #### L 100.0100, L500.4050, L501.53042, L501.9520, L506.0400, L3100.5850 #### [facility] Laboratory [address] [place], [address] ALK P 88 U/L Normal 45-117 [facility] Comment on above: Performed By: #### L 100.0100, L500.4050, L501.77768, L501.9520, L506.0400, L3100.5850 #### [facility] Laboratory [address] [place], [address] ALT [Catalytic activity/Vol] 32 U/L Normal 13-56 [facility] Comment on above: Performed By: #### L 100.0100, L500.4050, L501.93738, L501.9520, L506.0400, L3100.5850 #### [facility] Laboratory [address] [place], [address] AST [Catalytic activity/Vol] 20 U/L Normal 15-37 [facility] Comment on above: Performed By: #### L 100.0100, L500.4050, L501.07533, L501.9520, L506.0400, L3100.5850 #### [facility] [place] Laboratory [address] [place], [address] Bilirubin [Mass/Vol] 0.30 mg/dL Normal 0.20-1.00 [facility] Comment on above: Result Comment: For patients on eltrombopag therapy, use of [place] TBIL is not recommended. Performed By: #### L 100.0100, L500.4050, L501.91558, L501.9520, L506.0400, L3100.5850 #### [facility] Laboratory [address] [place], [address] BUN/CRE 5.5 RATIO Low 10-20 [facility] Comment on above: Performed By: #### L 100.0100, L500.4050, L501.19387, L501.9520, L506.0400, L3100.5850 #### [facility] Laboratory [address] [place], [address] CA,Total 10.2 mg/dL High 8.5-10.1 [facility] Comment on above: Performed By: #### L 100.0100, L500.4050, L501.08085, L501.9520, L506.0400, L3100.5850 #### [facility] Laboratory [address] [place], [address] Chloride [Moles/Vol] 103 mmol/L Normal 98-107 [facility] Comment on above: Performed By: #### L 100.0100, L500.4050, L501.16437, L501.9520, L506.0400, L3100.5850 #### [facility] [place] Laboratory [address] [place], [address] CO2 [Moles/Vol] 26.0 mmol/L Normal 21.0-32.0 [facility] Comment on above: Performed By: #### L 100.0100, L500.4050, L501.54936, L501.9520, L506.0400, L3100.5850 #### [facility] Laboratory [address] [place], [address] Creatinine [Mass/Vol] 0.90 mg/dL Normal 0.55-1.02 [facility] Comment on above: Result Comment: The validity of the calculated GFR GFRAA in patients over 70 years has not been determined. Clinical correlation is essential. Performed By: #### L 100.0100, L500.4050, L501.44683, L501.9520, L506.0400, L3100.5850 #### [facility] Laboratory [address] [place], [address] EST GFR - AA 87 mL/min Normal >60 [facility] Comment on above: Result Comment: Afri can [place]an GFR Calc Performed By: #### L 100.0100, L500.4050, L501.48375, L501.9520, L506.0400, L3100.5850 #### [facility] Laboratory [address] [place], [address] GAP 8 Normal 5-15 [facility] Comment on above: Performed By: #### L 100.0100, L500.4050, L501.53320, L501.9520, L506.0400, L3100.5850 #### [facility] Laboratory [address] [place], [address] GFR/1.73 sq M.predicted among non-blacks MDRD (S/P/Bld) [Vol rate/Area] 72 mL/min/{1.73_m2} Normal >60 [facility] Comment on above: Result Comment: Non- GFR Calc Performed By: #### L 100.0100, L500.4050, L501.46891, L501.9520, L506.0400, L3100.5850 #### [facility] Laboratory [address] [place], [address] Globulin (S) [Mass/Vol] 3.8 g/dL Normal 2.2-4.2 [facility] Comment on above: Performed By: #### L 100.0100, L500.4050, L501.54585, L501.9520, L506.0400, L3100.5850 #### [facility] Laboratory [address] [place], [address] Glucose [Mass/Vol] 84 mg/dL Normal 74-106 [facility] Comment on above: Performed By: #### L 100.0100, L500.4050, L501.28886, L501.9520, L506.0400, L3100.5850 #### [facility] Laboratory [address] [place], [address] Potassium [Moles/Vol] 4.3 mmol/L Normal 3.5-5.1 [facility] Comment on above: Performed By: #### L 100.0100, L500.4050, L501.84103, L501.9520, L506.0400, L3100.5850 #### [facility] Laboratory [address] [place], [address] Sodium [Moles/Vol] 136 mmol/L Normal 136-145 [facility] Comment on above: Performed By: #### L 100.0100, L500.4050, L501.12142, L501.9520, L506.0400, L3100.5850 #### [facility] Laboratory [address] [place], [address] T PROT 8.0 g/dL Normal 6.4-8.2 [facility] Comment on above: Performed By: #### L 100.0100, L500.4050, L501.49759, L501.9520, L506.0400, L3100.5850 #### [facility] Laboratory [address] [place], [address] Urea nitrogen [Mass/Vol] 5 mg/dL Low 7-18 [facility] Comment on above: Performed By: #### L 100.0100, L500.4050, L501.99177, L501.9520, L506.0400, L3100.5850 #### [facility] Laboratory [address] [place], [address] Direct serum free thyroxine (FT4) measurementOrdered By: Varsha Beth on 03-06-2024 Free T4 [Mass/Vol] 1.27 ng/dL 0.76-1.46 [facility] Eosinophil percentageOrdered By: Varsha Beth on 03-06-2024 Eosinophils/100 WBC (Bld) 0.3 % 0-5 [facility] Erythrocyte distribution wid th ratioOrdered By: Varsha Beth on 03-06-2024 Erythrocyte distribution width (RBC) [Ratio] 12.9 % 11.6-14.6 [facility] Erythrocyte distribution wid th standard deviationOrdered By: Varsha Beth on 03-06-2024 Erythrocyte distribution width (RBC) [Entitic vol] 42.0 fL 35.1-43.9 [facility] Estimated glomerular filtrat ion rate (GFR) AmericanOrdered By: Varsha Beth on 03-06-2024 Estimated GFR (MDRD) Amer 87 mL/min >60 [facility] Comment on above: GFR Calc Free T3on 03-06-2024 Free T3 [Mass/Vol] 3.0 pg/mL Normal 2.18-3.98 [facility] Comment on above: Performed By: #### L 100.0100, L500.4050, L501.08791, L501.9520, L506.0400, L3100.5850 #### [facility] Laboratory [address] [place], [place], [id number] Free S5Ialcpbs By: Varsha wright on 03-06-2024 Free Triiodothyronine (T3) pg/dL 3.0 pg/mL 2.18-3.98 [facility] Glomerular filtration rate ( GFR) estimationOrdered By: Varsha Beth on 03-06-2024 Estimated GFR (MDRD) Non-Af Amer 72 mL/min >60 [facility] Comment on above: Non- GFR Calc Glucose measurementOrdered B y: Varsha Beth on 03-06-2024 Glucose [Mass/Vol] 84 mg/dL 74-106 [facility] Hematocrit Auto (Bld) [Volum e fraction]Ordered By: Varsha Beth on 03-06-2024 Hematocrit (Bld) [Volume fraction] 45.7 % 37-47 [facility] Hemoglobin A1con 03-06-2024 HbA1c (Bld) [Mass fraction] 5.6 % Normal 3.8-5.6 [facility] Comment on above: Result Comment: Norm al < 5.7 % Prediabetic 5.7 - 6.4 % Diabetic >or= 6.5 % Please note range changes. Performed By: #### L 100.0100, L500.4050, L501.30775, L501.9520, L506.0400, L3100.5850 #### [facility] Laboratory [address] [place], [place], [id number] Hemoglobin A1c percentageOrd ered By: Varsha Beth on 03-06-2024 HbA1c (Bld) [Mass fraction] 5.6 % 3.8-5.6 [facility] Comment on above: Normal < 5.7 % Predi abetic 5.7 - 6.4 % Diabetic >or= 6.5 % Please note range changes. Hemoglobin measurementOrdere d By: Varsha Beth on 03-06-2024 Hemoglobin (Bld) [Mass/Vol] 15.5 g/dL High 12.0-15.0 [facility] High density lipoprotein (HD L) measurementOrdered By: Varsha Beth on 03-06-2024 Cholesterol in HDL [Mass/Vol] 54 mg/dL >40 [facility] Comment on above: The drugs N-Acetylcy steine and Metamizole may falsely depress this assay. Reference Range HDL <40 mg/dL Low HDL Cholesterol HDL >or= 60 mg/dL High HDL Cholesterol Immature granulocytes/100 WB C Auto (Bld)Ordered By: Varsha Beth on 03-06-2024 Immature granulocytes/100 WBC (Bld) 0.600 % 0.0-0.9 [facility] Comment on above: IG% - Immature Granu locytes (promyelocytes, myelocytes and metamyelocytes) > 1% indicates that a LEFT SHIFT is Present. Laboratory - Chemistry and C hemistry - challengeOrdered By: Varsha Beth on 03-06-2024 AST [Catalytic activity/Vol] 20 U/L 15-37 [facility] Lipid Profileon 03-06-2024 Cholesterol [Mass/Vol] 197 mg/dL Normal 200 [facility] Comment on above: Result Comment: <200 mg/dL Desirable 200-240 mg/dL Borderline >240 mg/dL High Risk Performed By: #### L 100.0100, L500.4050, L501.99933, L501.9520, L506.0400, L3100.5850 #### [facility] Laboratory [address] [place], [address] Cholesterol in HDL [Mass/Vol] 54 mg/dL Normal [facility] Comment on above: Result Comment: The drugs N-Acetylcysteine and Metamizole may falsely depress this assay. Reference Range HDL <40 mg/dL Low HDL Cholesterol HDL >or= 60 mg/dL High HDL Cholesterol Performed By: #### L 100.0100, L500.4050, L501.04891, L501.9520, L506.0400, L3100.5850 #### [facility] Laboratory [address] [place], [address] Cholesterol in LDL [Mass/Vol] 118 mg/dL Normal 0-130 [facility] Comment on above: Performed By: #### L 100.0100, L500.4050, L501.68987, L501.9520, L506.0400, L3100.5850 #### [facility] Laboratory [address] [place], [address] Cholesterol in VLDL [Mass/Vol] 25 mg/dL Normal 5-40 [facility] Comment on above: Performed By: #### L 100.0100, L500.4050, L501.33645, L501.9520, L506.0400, L3100.5850 #### [facility] Laboratory [address] [place], [address] Triglyceride [Mass/Vol] 124 mg/dL Normal [facility] Comment on above: Result Comment: The drugs N-Acetylcysteine and Metamizole may falsely depress this assay. Serum Triglycerides Reference Interval Normal <150 mg/dL Borderline high 150 - 199 mg/dL High 200 - 499 mg/dL Very High > or = 500 mg/dL Performed By: #### L 100.0100, L500.4050, L501.25582, L501.9520, L506.0400, L3100.5850 #### [facility] Laboratory [address] [place], [address] Low density lipoprotein (LDL ) cholesterol measurementOrdered By: Varsha Beth on 03-06-2024 Cholesterol in LDL [Mass/Vol] 118 mg/dL 0-130 [facility] Lymphocytes Auto (Unsp spec) [#/Vol]Ordered By: Varsha Beth on 03-06-2024 Lymphocytes (Bld) [#/Vol] 5.06 10*3/uL High 0.83-4.5 1 [facility] Lymphocytes/100 WBC Auto (Un sp spec)Ordered By: Varsha Beth on 03-06-2024 Lymphocytes/100 WBC (Bld) 34.8 % 19-41 [facility] MCV (mean corpuscular volume ) determinationOrdered By: Varsha Beth on 03-06-2024 MCV (RBC) [Entitic vol] 88.7 fL 81-99 [facility] Manual differential comment Rogers (Bld) [Interp]Ordered By: Varsha Beth on 03-06-2024 Differential Comment SCANNED [facility] Comment on above: LYMPHOCYTOSIS NOTED Mean corpuscular hemoglobin (MCH) determinationOrdered By: Varsha Beth on 03-06-2024 MCH (RBC) [Entitic mass] 30.1 pg 27.0-32.0 [facility] Mean corpuscular hemoglobin concentration (MCHC) determinationOrdered By: Varsha Beth on 03-06-2024 MCHC (RBC) [Mass/Vol] 33.9 g/dL 32-36 [facility] Mean platelet volume determi nationOrdered By: Varsha Beth on 03-06-2024 Platelet mean volume (Bld) [Entitic vol] 9.1 fL 6.2-12.0 [facility] Monocyte percentageOrdered B y: Varsha Beth on 03-06-2024 Monocytes/100 WBC (Bld) 5.0 % 0-10 [facility] Neutrophil percentageOrdered By: Varsha Beth on 03-06-2024 Neutrophils/100 WBC (Bld) 58.5 % 47-70 [facility] Nucleated red blood cell per centageOrdered By: Varsha Beth on 03-06-2024 Nucleated RBC/100 WBC (Bld) [Ratio] 0 % 0-5 [facility] Platelet countOrdered By: Do ra Beth on 03-06-2024 Platelets (Bld) [#/Vol] 452 10*3/uL High 150-450 [facility] Potassium measurementOrdered By: Varsha Beth on 03-06-2024 Potassium [Moles/Vol] 4.3 mmol/L 3.5-5.1 [facility] RBC Auto (Bld) [#/Vol]Ordere d By: Varsha Beth on 03-06-2024 RBC (Bld) [#/Vol] 5.15 10*6/uL 4.2-5.4 [facility] Serum anion gap measurementO rdered By: Varsha Beth on 03-06-2024 Anion gap [Moles/Vol] 8 mmol/L 5-15 [facility] Serum globulin measurementOr dered By: Varsha Beth on 03-06-2024 Globulin (S) [Mass/Vol] 3.8 g/dL 2.2-4.2 [facility] Serum or plasma alanine allen otransferase (ALT) measurementOrdered By: Varsha Beth on 03-06-2024 ALT [Catalytic activity/Vol] 32 U/L 13-56 [facility] Serum or plasma albumin raven urement (mass/volume)Ordered By: Varsha Beth on 03-06-2024 Albumin [Mass/Vol] 4.2 g/dL 3.2-5.0 [facility] Serum or plasma alkaline praveen sphatase measurementOrdered By: Varsha Beth on 03-06-2024 ALP [Catalytic activity/Vol] 88 U/L 45-117 [facility] Serum or plasma calcium raven urement (mass/volume)Ordered By: Varsha Beth on 03-06-2024 Calcium [Mass/Vol] 10.2 mg/dL High 8.5-10.1 [facility] Serum or plasma cholesterol measurement (mass/volume)Ordered By: Varsha Beth on 03-06-2024 Cholesterol [Mass/Vol] 197 mg/dL <200 [facility] Comment on above: <200 mg/dL Desirable 200-240 mg/dL Borderline >240 mg/dL High Risk Serum or plasma creatinine m easurement (mass/volume)Ordered By: Varsha Beth on 03-06-2024 Creatinine [Mass/Vol] 0.90 mg/dL 0.55-1.02 [facility] Comment on above: The validity of the calculated GFR & GFRAA in patients over 70 years has not been determined. Clinical correlation is essential. Serum or plasma urea nitroge n measurement (mass/volume)Ordered By: Varsha Beth on 03-06-2024 Urea nitrogen [Mass/Vol] 5 mg/dL Low 7-18 [facility] Sodium levelOrdered By: Varsha Beth on 03-06-2024 Sodium [Moles/Vol] 136 mmol/L 136-145 [facility] T4 Free Directon 03-06-2024 T4 FREE DIRECT 1.27 ng/dL Normal 0.76-1.46 [facility] Comment on above: Performed By: #### L 100.0100, L500.4050, L501.40403, L501.9520, L506.0400, L3100.5850 #### [facility] Laboratory [address] [place], [place], [id number] (102) TSH QnOrdered By: Varsha magana on 03-06-2024 Thyroid Stimulating Hormone (TSH) 1.330 uIU/mL 0.358-3.740 [facility] Thyroid Stim Hormone (TSH)on 03-06-2024 TSH 1.330 uIU/mL Normal 0.358-3.740 [facility] Comment on above: Performed By: #### L 100.0100, L500.4050, L501.07363, L501.9520, L506.0400, L3100.5850 #### [facility] Laboratory [address] [place], [place], [id number] Total proteinOrdered By: Jaspal Beth on 03-06-2024 Protein [Mass/Vol] 8.0 g/dL 6.4-8.2 [facility] Triglycerides measurementOrd ered By: Varsha Beth on 03-06-2024 Triglyceride [Mass/Vol] 124 mg/dL <199 [facility] Comment on above: The drugs N-Acetylcy steine and Metamizole may falsely depress this assay.Serum Triglycerides Reference Interval Normal <150 mg/dL Borderline high 150 - 199 mg/dL High 200 - 499 mg/dL Very High > or = 500 mg/dL Very low density lipoprotein (VLDL) cholesterol measurementOrdered By: Varsha Beth on 03-06-2024 VLDL Cholesterol 25 mg/dL 5-40 [facility] White blood cell (WBC) count Ordered By: Varsha Beth on 03-06-2024 WBC (Bld) [#/Vol] 14.5 10*3/uL High 4.4-11.0 [facility] SURGICAL PATH REPORTon 03-04 SURGICAL PATH REPORT [facility] Department of Pathology [address] [place] [address] Name: BIN BILL : 1980 [facility] [id number] Number: Gender Female Locatio Lab Svc. : n: Admit 43 years Attending BENJI MILAN MD, FACOG Age: Provider: Ordering BENJI MILAN MD, FACOG Provider: Consulti Surgical Pathology Report ng: ACCESSION: COLLECTED DATE/TIME: RECEIVED DATE/TIME: PATHOLOGIST: [id number] 02/26/2024 11:40 EST 02/27/2024 10:43 EST TOY [...] is based on a microscopic exam of door to door sales representative sections. ____ ____ Print 03/05/2024 11:45 EST Number: Date/Time: [facility] Department of Pathology [address] [place] [phone] Name: BIN BILL : 1980 Financial [id number] Number: Gender Female [facility] Svc. : n: Admit 43 years Attending BENJI MILAN MD, FACOG Age: Provider: Ordering BENJI MILAN MD, FACOG Provider: Consulti Surgical Pathology Report ng: ACCESSION: COLLECTED DATE/TIME: RECEIVED DATE/TIME: PATHOLOGIST: [id number] 02/26/2024 11:40 EST 02/27/2024 10:43 EST SULTANA LAM, TOY Microscopic Diagnosis This report was transcribed using voice recognition technology and might contain unintended computerized condemnation engineer errors. Codes CPT code: 23255 ____ ____ Print 03/05/2024 11:45 EST Number: Date/Time: [facility] Comment on above: Performed By: #### [id number] #### [facility] Laboratory Services [address] [place] [id number] Certified Art Therapist: Landon Calabrese MD AMB Urine POC 8102 5on 02-26-2024 Beta HCG ( test) Ql (U) Urine Test Entered On: 02/26/2024 12:32 EST Performed On: 02/26/2024 12:32 EST by Ekta Sanz Urine HCG Urine Beta Human Chorionic Gonadotropin Qualitative : Negative Ekta Sanz - 02/26/2024 12:32 EST Normal [facility] AMB Physician Progress No lasha 02-26-2024 [facility] Physician Progress Note BIN BILL :1980 Registration Date:02/26/2024 Assessment/Plan This Visit Diagnosis 1. Pre-procedure lab exam Z01.812 Ordered: AMB Urine POC 18794, 02/26/2024 12:32:00 EST, Pre-procedure lab exam History of endometrial ablation Z98.890 Will plan for NOE ANDUJAR. EMB done today Ordered: AMB Endometrial bx wwo Endocerv Bx NO Dilat 64512, 02/26/2024 12:27:00 EST, Menorrhagia / History of endometrial ablation, 1 AMB Schedule Surgery, 02/26/2024 12:43:00 EST, PRATIMA BS Menorrhagia N92.0 Will start Slynd Ordered: drospirenone(Slynd 4 mg oral tablet), 4 mg= 1 tabs, ORAL, DAILY, 3 refills AMB Endometrial bx wwo Endocerv Bx NO Dilat 03657, 02/26/2024 12:27:00 EST, Menorrhagia / History of endometrial ablation, 1 AMB Schedule Surgery, 02/26/2024 12:43:00 EST, NOE ANDUJAR Medication Reconciliation What How Much When Why Instructions New drospirenone (Slynd 4 mg oral tablet) 1 Tabs Oral DAILY Menorrhagia Refills: 3 Pickup at [facility]/pharmacy #[id number] Changed hydrOXYzine (hydrOXYzine hydrochloride 10 mg [...] sores Pharmacy Information [id number] [address] [place], [place] [phone] 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 A speculum was placed. The cervix was cleansed with betadine swabs. An endometrial pipelle was advanced without difficulty. The uterus sounded to 8 cm. Two passes were done for adequate tissue so the procedure was terminated. All instruments were removed. She tolerated the procedure well. BARKER PEELER Additional Details Menstrual History Menstrual StatusMenarcheal Last Menstrual Bvikyq2502/22/2024 BARKER PEELER Screening Date of Last Pap Smear12/06/2023 Last Pap Result, Pt StatedNegative Last Pap Result CommentNeg HPV Date of Last Mammogram, Pt StatedNever Contraception Contraception MethodSterilization for contraception Sterilization TypeTubal ligation OB History History (2,0,0,2) # 1 Baby 1 Outcome Date: 06/17/1998 Outcome or Result: Vaginal Gest Age: 40 weeks Outcome: Live Sex: Male Hospital: [facility] Dr Mullen # 2 Baby 1 Outcome Date: 12/06/2003 Outcome or Result: Vaginal Gest Age: 40 weeks Outcome: Live Sex: Male Hospital (more content not included)... Normal [facility] Ambulatory Clinical Summaryo n 02-26-2024 Ambulatory Clinical Summary BIN BILL :1980 Registration Date:02/26/2024 Ambulatory Visit Instructions Your Diagnosis Pre-procedure lab exam History of endometrial ablation Menorrhagia Tests Performed AMB Urine POC 00387 Your Care Team Attending Physician - NAS LAM FACOG, BENJI Primary Care Physician - JOANIE FRANCO Procedures [...] HADDAD April 10, 2024 01:40 pm EDT [facility] [address] [place] [address] [address] [facility] ZIP:[id number] Established Patient F/U Benji Milan MD April 10, 2024 02:10 pm EDT [facility] [address] [place] [address] Road [address] [facility] ZIP:[id number] Medications What How Much When Why Instructions New drospirenone (Slynd 4 mg oral tablet) 1 Tabs Oral DAILY Menorrhagia Refills: 3 Pickup at [facility]/pharmacy #[id number] Changed hydrOXYzine (hydrOXYzine hydrochloride 10 mg oral [...] sores Pharm[facility] Information [id number] [address], [place] [phone] Test Results AMB Urine POC 54572 (02/26/2024) U beta hCG Ql - Negative [...] call to get immediate medical attention! 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, Pt states [...] year Ekta Sanz 02/26/2024 11:57 EST Normal [facility] BARKER PEELER Visit - Texton BARKER PEELER Visit - Text BARKER PEELER Visit Entered On : 02/26/2024 12:03 EST Performed On: 02/26/2024 12:02 EST by Ekta Sanz BARKER PEELER Menstrual History Menstrual Status : Menarcheal Ekta Sanz - 02/26/2024 12:02 EST BARKER PEELER Screenings Date of Last Pap Smear : 12/06/2023 Last Pap Result : Negative Last Pap Result Comment : Neg HPV Date of Last Mammogram : Never Ekta Sanz - 02/26/2024 12:02 EST Contraception Contraception Method : Sterilization for contraception Sterilization Type : Tubal ligation Ekta Sanz - 02/26/2024 12:02 EST Normal [facility] EBV Acute Prof IgG / IgMon 0 12-10-2023 EB Ab VCA, IgG 143.0 U/mL High 0.0-17.9 [facility] Comment on above: Result Comment: Nega tive <18.0 Equivocal 18.0 - 21.9 Positive >21.9 Performed By: #### L 100.0100, L500.4050, L501.57882, L501.9520, L506.0400, L3100.5850 #### [facility] Laboratory [address] [place], [place], [id number] EBV Ab VCA, IgM < 36.0 Normal 0.0-35.9 [facility] Comment on above: Result Comment: Nega tive <36.0 Equivocal 36.0 - 43.9 Positive >43.9 Performed By: #### L 100.0100, L500.4050, L501.51772, L501.9520, L506.0400, L3100.5850 #### [facility] Laboratory [address] [place], [place], [id number] EBV NuAg Ab,IgG > 600.0 High 0.0-17.9 [facility] Comment on above: Result Comment: Nega tive <18.0 Equivocal 18.0 - 21.9 Positive >21.9 Performed By: #### L 100.0100, L500.4050, L501.19446, L501.9520, L506.0400, L3100.5850 #### [facility] Laboratory [address] [place], [address] INTERPRETATION Comment Normal . [facility] Comment on above: Result Comment: EBV Interpretation [...] never develop antibodies to EBNA. Performed at: [address] [id number] Income Tax Analyst: Michael Arevalo PhD, Phone: [phone] Performed By: #### L 100.0100, L500.4050, L501.74225, L501.9520, L506.0400, L3100.5850 #### [facility] Laboratory [address] [place], [address] Comprehensive Metabolic Prof [facility] 12-08-2023 Albumin [Mass/Vol] 4.0 g/dL Normal 3.2-5.0 [facility] Comment on above: Performed By: #### L 100.0100, L500.4050, L501.30635, L501.9520, L506.0400, L3100.5850 #### [facility] Laboratory [address] [place], [address] Albumin/Globulin [Mass ratio] 1.2 {ratio} Normal 0.9-2.4 [facility] Comment on above: Performed By: #### L 100.0100, L500.4050, L501.33557, L501.9520, L506.0400, L3100.5850 #### [facility] Laboratory [address] [place], [address] ALK P 70 U/L Normal 45-117 [facility] Comment on above: Performed By: #### L 100.0100, L500.4050, L501.06657, L501.9520, L506.0400, L3100.5850 #### [facility] Laboratory [address] [place], [address] ALT [Catalytic activity/Vol] 36 U/L Normal 13-56 [facility] Comment on above: Performed By: #### L 100.0100, L500.4050, L501.47095, L501.9520, L506.0400, L3100.5850 #### [facility] Laboratory [address] [place], [address] AST [Catalytic activity/Vol] 16 U/L Normal 15-37 [facility] Comment on above: Performed By: #### L 100.0100, L500.4050, L501.72228, L501.9520, L506.0400, L3100.5850 #### [facility] Laboratory [address] [place], [address] Bilirubin [Mass/Vol] 0.30 mg/dL Normal 0.20-1.00 [facility] Comment on above: Result Comment: For patients on eltrombopag therapy, use of Dimension [place] TBIL is not recommended. Performed By: #### L 100.0100, L500.4050, L501.57651, L501.9520, L506.0400, L3100.5850 #### [facility] Laboratory [address] [place], [address] BUN/CRE 12.4 RATIO Normal 10-20 [facility] Comment on above: Performed By: #### L 100.0100, L500.4050, L501.89914, L501.9520, L506.0400, L3100.5850 #### [facility] Laboratory [address] [place], [address] CA,Total 10.3 mg/dL High 8.5-10.1 [facility] Comment on above: Performed By: #### L 100.0100, L500.4050, L501.40257, L501.9520, L506.0400, L3100.5850 #### [facility] Laboratory [address] [place], [address] Chloride [Moles/Vol] 103 mmol/L Normal 98-107 [facility] Comment on above: Performed By: #### L 100.0100, L500.4050, L501.01914, L501.9520, L506.0400, L3100.5850 #### [facility] Laboratory [address] [place], [address] CO2 [Moles/Vol] 30.0 mmol/L Normal 21.0-32.0 [facility] Comment on above: Performed By: #### L 100.0100, L500.4050, L501.10355, L501.9520, L506.0400, L3100.5850 #### [facility] Laboratory [address] [place], [address] Creatinine [Mass/Vol] 0.89 mg/dL Normal 0.55-1.02 [facility] Comment on above: Result Comment: The validity of the calculated GFR GFRAA in patients over 70 years has not been determined. Clinical correlation is essential. Performed By: #### L 100.0100, L500.4050, L501.44875, L501.9520, L506.0400, L3100.5850 #### [facility] Laboratory [address] [place], [address] EST GFR - AA 88 mL/min Normal >60 [facility] Comment on above: Result Comment: Afri can Zimbabwean GFR Calc Performed By: #### L 100.0100, L500.4050, L501.14904, L501.9520, L506.0400, L3100.5850 #### [facility] Laboratory [address] [place], [address] GAP 4 Low 5-15 [facility] Comment on above: Performed By: #### L 100.0100, L500.4050, L501.89535, L501.9520, L506.0400, L3100.5850 #### [facility] Laboratory [address] [place], [address] GFR/1.73 sq M.predicted among non-blacks MDRD (S/P/Bld) [Vol rate/Area] 73 mL/min/{1.73_m2} Normal >60 [facility] Comment on above: Result Comment: Non- GFR Calc Performed By: #### L 100.0100, L500.4050, L501.21435, L501.9520, L506.0400, L3100.5850 #### [facility] Laboratory [address] [place], [address] Globulin (S) [Mass/Vol] 3.4 g/dL Normal 2.2-4.2 [facility] Comment on above: Performed By: #### L 100.0100, L500.4050, L501.68539, L501.9520, L506.0400, L3100.5850 #### [facility] Laboratory [address] [place], [address] Glucose [Mass/Vol] 84 mg/dL Normal 74-106 [facility] Comment on above: Performed By: #### L 100.0100, L500.4050, L501.38579, L501.9520, L506.0400, L3100.5850 #### [facility] Laboratory [address] [place], [address] Potassium [Moles/Vol] 4.2 mmol/L Normal 3.5-5.1 [facility] Comment on above: Performed By: #### L 100.0100, L500.4050, L501.87301, L501.9520, L506.0400, L3100.5850 #### [facility] Laboratory [address] [place], [address] Sodium [Moles/Vol] 137 mmol/L Normal 136-145 [facility] Comment on above: Performed By: #### L 100.0100, L500.4050, L501.08350, L501.9520, L506.0400, L3100.5850 #### [facility] Laboratory [address] [place], [address] T PROT 7.4 g/dL Normal 6.4-8.2 [facility] Comment on above: Performed By: #### L 100.0100, L500.4050, L501.40775, L501.9520, L506.0400, L3100.5850 #### [facility] Laboratory [address] [place], [address] Urea nitrogen [Mass/Vol] 11 mg/dL Normal 7-18 [facility] Comment on above: Performed By: #### L 100.0100, L500.4050, L501.84993, L501.9520, L506.0400, L3100.5850 #### [facility] Laboratory [address] [place], [address] Free T3on 12-08-2023 Free T3 [Mass/Vol] 2.7 pg/mL Normal 2.18-3.98 [facility] Comment on above: Performed By: #### L 100.0100, L500.4050, L501.84510, L501.9520, L506.0400, L3100.5850 #### [facility] Laboratory [address] [place], [address] T4 Free Directon 12-08-2023 T4 FREE DIRECT 1.05 ng/dL Normal 0.76-1.46 [facility] Comment on above: Performed By: #### L 100.0100, L500.4050, L501.38979, L501.9520, L506.0400, L3100.5850 #### [facility] Laboratory [address] [place], [address] Thyroid Stim Hormone (TSH)on 12-08-2023 TSH 1.100 uIU/mL Normal 0.358-3.740 [facility] Comment on above: Performed By: #### L 100.0100, L500.4050, L501.85679, L501.9520, L506.0400, L3100.5850 #### [facility] Laboratory [address] [place], [address] CBC W/Diff, Automatedon 11-24 Absolute Lymph 4.34 X10 3/uL Normal 0.83-4.51 [facility] Comment on above: Performed By: #### L 100.0100, L500.4050, L501.85809, L501.9520, L506.0400, L3100.5850 #### [facility] Laboratory [address] [place], [address] Absolute Neut 6.6 X10 3/uL Normal 2.0-7.7 [facility] Comment on above: Performed By: #### L 100.0100, L500.4050, L501.38747, L501.9520, L506.0400, L3100.5850 #### [facility] Laboratory [address] [place], [address] Basophils/100 WBC (Bld) 0.5 % Normal 0-1 [facility] Comment on above: Performed By: #### L 100.0100, L500.4050, L501.14171, L501.9520, L506.0400, L3100.5850 #### [facility] Laboratory [address] [place], [address] Eosinophils/100 WBC (Bld) 0.1 % Normal 0-5 [facility] Comment on above: Performed By: #### L 100.0100, L500.4050, L501.26973, L501.9520, L506.0400, L3100.5850 #### [facility] Laboratory [address] [place], [address] Erythrocyte distribution width (RBC) [Ratio] 13.1 % Normal 11.6-14.6 [facility] Comment on above: Performed By: #### L 100.0100, L500.4050, L501.41494, L501.9520, L506.0400, L3100.5850 #### [facility] Laboratory [address] [place], [address] Hematocrit (Bld) [Volume fraction] 44.3 % Normal 37-47 [facility] Comment on above: Performed By: #### L 100.0100, L500.4050, L501.50665, L501.9520, L506.0400, L3100.5850 #### [facility] Laboratory [address] [place], [address] Hemoglobin (Bld) [Mass/Vol] 14.8 g/dL Normal 12.0-15.0 [facility] Comment on above: Performed By: #### L 100.0100, L500.4050, L501.40592, L501.9520, L506.0400, L3100.5850 #### [facility] Laboratory [address] [place], [address] IG% 0.200 Normal 0.0-0.9 [facility] Comment on above: Result Comment: IG% - Immature Granulocytes (promyelocytes, myelocytes and metamyelocytes) > 1% indicates that a LEFT SHIFT is Present. Performed By: #### L 100.0100, L500.4050, L501.70488, L501.9520, L506.0400, L3100.5850 #### [facility] Laboratory [address] [place], [address] Lymphocytes/100 WBC (Bld) 36.5 % Normal 19-41 [facility] Comment on above: Performed By: #### L 100.0100, L500.4050, L501.57866, L501.9520, L506.0400, L3100.5850 #### [facility] Laboratory [address] [place], [address] MCH (RBC) [Entitic mass] 30.5 pg Normal 27.0-32.0 [facility] Comment on above: Performed By: #### L 100.0100, L500.4050, L501.88737, L501.9520, L506.0400, L3100.5850 #### [facility] Laboratory [address] [place], [address] MCHC (RBC) [Mass/Vol] 33.4 g/dL Normal 32-36 [facility] Comment on above: Performed By: #### L 100.0100, L500.4050, L501.28333, L501.9520, L506.0400, L3100.5850 #### [facility] Laboratory [address] [place], [address] MCV (RBC) [Entitic vol] 91.2 fL Normal 81-99 [facility] Comment on above: Performed By: #### L 100.0100, L500.4050, L501.95436, L501.9520, L506.0400, L3100.5850 #### [facility] Laboratory [address] [place], [address] Monocytes/100 WBC (Bld) 7.2 % Normal 0-10 [facility] Comment on above: Performed By: #### L 100.0100, L500.4050, L501.80266, L501.9520, L506.0400, L3100.5850 #### [facility] Laboratory [address] [place], [address] Neutrophils/100 WBC (Bld) 55.5 % Normal 47-70 [facility] Comment on above: Performed By: #### L 100.0100, L500.4050, L501.99811, L501.9520, L506.0400, L3100.5850 #### [facility] Laboratory [address] [place], [address] Nucleated RBC (Bld) [#/Vol] 0 10*3/uL Normal 0-5 [facility] Comment on above: Performed By: #### L 100.0100, L500.4050, L501.62017, L501.9520, L506.0400, L3100.5850 #### [facility] Laboratory [address] [place], [address] Platelet mean volume (Bld) [Entitic vol] 10.1 fL Normal 6.2-12.0 [facility] Comment on above: Performed By: #### L 100.0100, L500.4050, L501.30675, L501.9520, L506.0400, L3100.5850 #### [facility] Laboratory [address] [place], [address] Platelets (Bld) [#/Vol] 349 10*3/uL Normal 150-450 [facility] Comment on above: Performed By: #### L 100.0100, L500.4050, L501.55776, L501.9520, L506.0400, L3100.5850 #### [facility] Laboratory [address] [place], [address] RBC (Bld) [#/Vol] 4.86 10*6/uL Normal 4.2-5.4 [facility] Comment on above: Performed By: #### L 100.0100, L500.4050, L501.63683, L501.9520, L506.0400, L3100.5850 #### [facility] Laboratory [address] [place], [address] RDW SD 43.7 fl Normal 35.1-43.9 [facility] Comment on above: Performed By: #### L 100.0100, L500.4050, L501.06813, L501.9520, L506.0400, L3100.5850 #### [facility] Laboratory [address] [place], [address] WBC (Bld) [#/Vol] 11.9 10*3/uL High 4.4-11.0 [facility] Comment on above: Performed By: #### L 100.0100, L500.4050, L501.29225, L501.9520, L506.0400, L3100.5850 #### [facility] Laboratory [address] [place], [address] Cervical AND or Vaginal cyto logy studyon 12-06-2023 Cytology Cervical or vaginal smear or scraping study Pathology report.total SEE COMMENT Gynecologic Cytology Case: [id number] Authorizing Provider: Joanie Franco MD Collected: 12/06/20231228 Ordering Location: [facility] & Received: 12/06/2023 1229 Internal Medicine/Peds First [...] Slide(s) initially screened by ASHKAN Caban at [address] [id number] By the signature on this report, the individual or group listed as making the Final Interpretation/Diagnos is certifies that they have reviewed this case. This specimen has been analyzed by the [employer] System ([employer] an automated imaging and review system, which assists the laboratory in evaluating cells on ThinPrep Pap tests. Following automated imaging, selected rios from every slide were reviewed by a cellars supervisor and/or pathologist. Cervical cytology is a screening [...] LAB AP HPV GENOTYPE QUESTION Yes Normal [facility] EBV Acute Prof IgG / IgMon 0 - EB Ab VCA, IgG 135.0 U/mL High 0.0-17.9 [facility] [place] Comment on above: Result Comment: Nega tive <18.0 Equivocal 18.0 - 21.9 Positive >21.9 Performed By: #### L 100.0100, L500.4050, L501.78915, L501.9520, L506.0400, L3100.5850 #### [facility] [place] [facility] [address] [place], [address] (038) EBV Ab VCA, IgM < 36.0 Normal 0.0-35.9 [facility] [place] Comment on above: Result Comment: Nega tive <36.0 Equivocal 36.0 - 43.9 Positive >43.9 Performed By: #### L 100.0100, L500.4050, L501.88356, L501.9520, L506.0400, L3100.5850 #### [facility] [place] [facility] [address] [place], [address] EBV NuAg Ab,IgG > 600.0 High 0.0-17.9 [facility] [place] Comment on above: Result Comment: Nega tive <18.0 Equivocal 18.0 - 21.9 Positive >21.9 Performed By: #### L 100.0100, L500.4050, L501.93689, L501.9520, L506.0400, L3100.5850 #### [facility] [place] Laboratory [address] [place], [place], [id number] INTERPRETATION Comment Normal . [facility] [place] Comment on above: Result Comment: EBV Interpretation [...] never develop antibodies to EBNA. Performed at: [facility] [employer] [id number] Income Tax Analyst: Michael Arevalo PhD, Phone: [phone] Performed By: #### L 100.0100, L500.4050, L501.44243, L501.9520, L506.0400, L3100.5850 #### [facility] [place] [facility] [address] [place], [address] Thyroid Stim Hormone (TSH)on 10-12-2023 TSH 0.66 uIU/mL Normal 0.358-3.74 [facility] [place] Comment on above: Performed By: #### L 100.0100, L500.4050, L501.45068, L501.9520, L506.0400, L3100.5850 #### [facility] [place] Laboratory [address] [place], [place], [id number] EBV Acute Prof IgG / IgMon 0 08-24-2023 EB Ab VCA, IgG 144.0 U/mL High 0.0-17.9 [facility] [place] Comment on above: Result Comment: Nega tive <18.0 Equivocal 18.0 - 21.9 Positive >21.9 Performed By: #### L 100.0100, L500.4050, L501.47557, L501.9520, L506.0400, L3100.5850 #### [facility] [place] [facility] [address] [place], [address] EBV Ab VCA, IgM < 36.0 Normal 0.0-35.9 [facility] [place] Comment on above: Result Comment: Nega tive <36.0 Equivocal 36.0 - 43.9 Positive >43.9 Performed By: #### L 100.0100, L500.4050, L501.48891, L501.9520, L506.0400, L3100.5850 #### [facility] [place] [facility] [address] [place], [address] EBV NuAg Ab,IgG > 600.0 High 0.0-17.9 [facility] [place] Comment on above: Result Comment: Nega tive <18.0 Equivocal 18.0 - 21.9 Positive >21.9 Performed By: #### L 100.0100, L500.4050, L501.55079, L501.9520, L506.0400, L3100.5850 #### [facility] [place] [facility] [address] [place], [address] INTERPRETATION Comment Normal . [facility] [place] Comment on above: Result Comment: EBV Interpretation [...] never develop antibodies to EBNA. Performed at: [address] [id number] Income Tax Analyst: Michael Arevalo PhD, Phone: [phone] Performed By: #### L 100.0100, L500.4050, L501.05277, L501.9520, L506.0400, L3100.5850 #### [facility] [place] Laboratory [address] [place], [address] CBC W/Diff, Automatedon 05-2 Absolute Lymph 4.36 X10 3/uL Normal 0.83-4.51 [facility] [place] Comment on above: Performed By: #### L 509.6000, L100.0100, L500.4050, L500.4100, L501.9520, L501.9985, L3100.5850 #### [facility] [place] Laboratory [address] [place], [address] Absolute Neut 12.1 X10 3/uL High 2.0-7.7 [facility] [place] Comment on above: Performed By: #### L 509.6000, L100.0100, L500.4050, L500.4100, L501.9520, L501.9985, L3100.5850 #### [facility] [place] Laboratory [address] [place], [address] Basophils/100 WBC (Bld) 0.4 % Normal 0-1 [facility] Comment on above: Performed By: #### L 509.6000, L100.0100, L500.4050, L500.4100, L501.9520, L501.9985, L3100.5850 #### [facility] [place] Laboratory [address] [place], [address] Eosinophils/100 WBC (Bld) 0.1 % Normal 0-5 [facility] [place] Comment on above: Performed By: #### L 509.6000, L100.0100, L500.4050, L500.4100, L501.9520, L501.9985, L3100.5850 #### [facility] [place] Laboratory [address] [place], [address] Erythrocyte distribution width (RBC) [Ratio] 13.6 % Normal 11.6-14.6 [facility] [place] Comment on above: Performed By: #### L 509.6000, L100.0100, L500.4050, L500.4100, L501.9520, L501.9985, L3100.5850 #### [facility] [place] [facility] [address] [place], [address] Hematocrit (Bld) [Volume fraction] 49.4 % High 37-47 [facility] [place] Comment on above: Performed By: #### L 509.6000, L100.0100, L500.4050, L500.4100, L501.9520, L501.9985, L3100.5850 #### [facility] [place] Laboratory [address] [place], [address] Hemoglobin (Bld) [Mass/Vol] 16.3 g/dL High 12.0-15.0 [facility] [place] Comment on above: Performed By: #### L 509.6000, L100.0100, L500.4050, L500.4100, L501.9520, L501.9985, L3100.5850 #### [facility] [place] Laboratory [address] [place], [address] IG% 0.600 Normal 0.0-0.9 [facility] [place] Comment on above: Result Comment: IG% - Immature Granulocytes (promyelocytes, myelocytes and metamyelocytes) > 1% indicates that a LEFT SHIFT is Present. Performed By: #### L 509.6000, L100.0100, L500.4050, L500.4100, L501.9520, L501.9985, L3100.5850 #### [facility] [place] Laboratory [address] [place], [address] Lymphocytes/100 WBC (Bld) 24.5 % Normal 19-41 [facility] [place] Comment on above: Performed By: #### L 509.6000, L100.0100, L500.4050, L500.4100, L501.9520, L501.9985, L3100.5850 #### [facility] [place] Laboratory [address] [place], [address] MCH (RBC) [Entitic mass] 30.0 pg Normal 27.0-32.0 [facility] [place] Comment on above: Performed By: #### L 509.6000, L100.0100, L500.4050, L500.4100, L501.9520, L501.9985, L3100.5850 #### [facility] [place] Laboratory [address] [place], [address] MCHC (RBC) [Mass/Vol] 33.0 g/dL Normal 32-36 [facility] Comment on above: Performed By: #### L 509.6000, L100.0100, L500.4050, L500.4100, L501.9520, L501.9985, L3100.5850 #### [facility] [place] Laboratory [address] [place], [address] MCV (RBC) [Entitic vol] 90.8 fL Normal 81-99 [facility] Comment on above: Performed By: #### L 509.6000, L100.0100, L500.4050, L500.4100, L501.9520, L501.9985, L3100.5850 #### [facility] [place] Laboratory [address] [place], [address] Monocytes/100 WBC (Bld) 6.1 % Normal 0-10 [facility] Comment on above: Performed By: #### L 509.6000, L100.0100, L500.4050, L500.4100, L501.9520, L501.9985, L3100.5850 #### [facility] [place] Laboratory [address] [place], [address] Neutrophils/100 WBC (Bld) 68.3 % Normal 47-70 [facility] [place] Comment on above: Performed By: #### L 509.6000, L100.0100, L500.4050, L500.4100, L501.9520, L501.9985, L3100.5850 #### [facility] [place] Laboratory [address] [place], [address] Nucleated RBC (Bld) [#/Vol] 0 10*3/uL Normal 0-5 [facility] [place] Comment on above: Performed By: #### L 509.6000, L100.0100, L500.4050, L500.4100, L501.9520, L501.9985, L3100.5850 #### [facility] [place] Laboratory [address] [place], [address] Platelet mean volume (Bld) [Entitic vol] 9.6 fL Normal 6.2-12.0 [facility] [place] Comment on above: Performed By: #### L 509.6000, L100.0100, L500.4050, L500.4100, L501.9520, L501.9985, L3100.5850 #### [facility] [place] Laboratory [address] [place], [address] Platelets (Bld) [#/Vol] 355 10*3/uL Normal 150-450 [facility] [place] Comment on above: Performed By: #### L 509.6000, L100.0100, L500.4050, L500.4100, L501.9520, L501.9985, L3100.5850 #### [facility] [place] [facility] [address] [place], [address] RBC (Bld) [#/Vol] 5.44 10*6/uL High 4.2-5.4 [facility] Comment on above: Performed By: #### L 509.6000, L100.0100, L500.4050, L500.4100, L501.9520, L501.9985, L3100.5850 #### [facility] [place] Laboratory [address] [place], [address] RDW SD 45.3 fl High 35.1-43.9 [facility] [place] Comment on above: Performed By: #### L 509.6000, L100.0100, L500.4050, L500.4100, L501.9520, L501.9985, L3100.5850 #### [facility] [place] [facility] [address] [place], [address] WBC (Bld) [#/Vol] 17.8 10*3/uL High 4.4-11.0 [facility] Comment on above: Performed By: #### L 509.6000, L100.0100, L500.4050, L500.4100, L501.9520, L501.9985, L3100.5850 #### [facility] [place] Laboratory [address] [place], [place], [id number] CORTISOL SERUMon 08-22-2023 CORTISOL 6.70 ug/dL Normal 3.44-22.45 [facility] [place] Comment on above: Result Comment: Adul t (AM) 5.27 - 22.45 ug/dL Adult (PM) 3.44 - 16.76 ug/dL Please note revised CORTISOL reference range effective 2019. Performed By: #### L 509.6000, L100.0100, L500.4050, L500.4100, L501.9520, L501.9985, L3100.5850 #### [facility] [place] Laboratory [address] [place], [place], [id number] Comprehensive Metabolic Prof ilon 08-22-2023 Albumin [Mass/Vol] 4.3 g/dL Normal 3.2-5.0 [facility] Comment on above: Performed By: #### L 509.6000, L100.0100, L500.4050, L500.4100, L501.9520, L501.9985, L3100.5850 #### [facility] [place] Laboratory [address] [place], [address] Albumin/Globulin [Mass ratio] 1.1 {ratio} Normal 0.9-2.4 [facility] [place] Comment on above: Performed By: #### L 509.6000, L100.0100, L500.4050, L500.4100, L501.9520, L501.9985, L3100.5850 #### [facility] [place] Laboratory [address] [place], [address] ALK P 76 U/L Normal 45-117 [facility] [place] Comment on above: Performed By: #### L 509.6000, L100.0100, L500.4050, L500.4100, L501.9520, L501.9985, L3100.5850 #### [facility] [place] Laboratory [address] [place], [address] ALT [Catalytic activity/Vol] 32 U/L Normal 13-56 [facility] [place] Comment on above: Performed By: #### L 509.6000, L100.0100, L500.4050, L500.4100, L501.9520, L501.9985, L3100.5850 #### [facility] [place] Laboratory [address] [place], [address] AST [Catalytic activity/Vol] 18 U/L Normal 15-37 [facility] [place] Comment on above: Performed By: #### L 509.6000, L100.0100, L500.4050, L500.4100, L501.9520, L501.9985, L3100.5850 #### [facility] Laboratory [address] [place], [address] Bilirubin [Mass/Vol] 0.50 mg/dL Normal 0.20-1.00 [facility] Comment on above: Result Comment: For patients on eltrombopag therapy, use of Dimension [place] TBIL is not recommended. Performed By: #### L 509.6000, L100.0100, L500.4050, L500.4100, L501.9520, L501.9985, L3100.5850 #### [facility] [place] Laboratory [address] [place], [address] BUN/CRE 8.7 RATIO Low 10-20 [facility] [place] Comment on above: Performed By: #### L 509.6000, L100.0100, L500.4050, L500.4100, L501.9520, L501.9985, L3100.5850 #### [facility] [place] Laboratory [address] [place], [address] CA,Total 10.3 mg/dL High 8.5-10.1 [facility] [place] Comment on above: Performed By: #### L 509.6000, L100.0100, L500.4050, L500.4100, L501.9520, L501.9985, L3100.5850 #### [facility] [place] Laboratory [address] [place], [address] Chloride [Moles/Vol] 104 mmol/L Normal 98-107 [facility] Comment on above: Performed By: #### L 509.6000, L100.0100, L500.4050, L500.4100, L501.9520, L501.9985, L3100.5850 #### [facility] [place] [facility] [address] [place], [address] CO2 [Moles/Vol] 25.0 mmol/L Normal 21.0-32.0 [facility] [place] Comment on above: Performed By: #### L 509.6000, L100.0100, L500.4050, L500.4100, L501.9520, L501.9985, L3100.5850 #### [facility] [place] Laboratory [address] [place], [address] Creatinine [Mass/Vol] 1.04 mg/dL High 0.55-1.02 [facility] Comment on above: Result Comment: The validity of the calculated GFR GFRAA in patients over 70 years has not been determined. Clinical correlation is essential. Performed By: #### L 509.6000, L100.0100, L500.4050, L500.4100, L501.9520, L501.9985, L3100.5850 #### [facility] [place] [facility] [address] [place], [address] EST GFR - AA 74 mL/min Normal >60 [facility] [place] Comment on above: Result Comment: Afri can [place] GFR Calc Performed By: #### L 509.6000, L100.0100, L500.4050, L500.4100, L501.9520, L501.9985, L3100.5850 #### [facility] [facility] [address] [place], [address] GAP 10 Normal 5-15 [facility] [place] Comment on above: Performed By: #### L 509.6000, L100.0100, L500.4050, L500.4100, L501.9520, L501.9985, L3100.5850 #### [facility] [place] [facility] [address] [place], [address] GFR/1.73 sq M.predicted among non-blacks MDRD (S/P/Bld) [Vol rate/Area] 61 mL/min/{1.73_m2} Normal >60 [facility] Comment on above: Result Comment: Non- GFR Calc Performed By: #### L 509.6000, L100.0100, L500.4050, L500.4100, L501.9520, L501.9985, L3100.5850 #### [facility] [address] [place], [address] Globulin (S) [Mass/Vol] 4.0 g/dL Normal 2.2-4.2 [facility] Comment on above: Performed By: #### L 509.6000, L100.0100, L500.4050, L500.4100, L501.9520, L501.9985, L3100.5850 #### [facility] [address] [place], [address] Glucose [Mass/Vol] 67 mg/dL Low 74-106 [facility] Comment on above: Performed By: #### L 509.6000, L100.0100, L500.4050, L500.4100, L501.9520, L501.9985, L3100.5850 #### [facility] [place] [facility] [address] [place], [address] Potassium [Moles/Vol] 3.5 mmol/L Normal 3.5-5.1 [facility] Comment on above: Performed By: #### L 509.6000, L100.0100, L500.4050, L500.4100, L501.9520, L501.9985, L3100.5850 #### [facility] [address] [place], [address] Sodium [Moles/Vol] 139 mmol/L Normal 136-145 [facility] Comment on above: Performed By: #### L 509.6000, L100.0100, L500.4050, L500.4100, L501.9520, L501.9985, L3100.5850 #### [facility] [place] [address] [place], [address] T PROT 8.3 g/dL High 6.4-8.2 [facility] [place] Comment on above: Performed By: #### L 509.6000, L100.0100, L500.4050, L500.4100, L501.9520, L501.9985, L3100.5850 #### [facility] [address] [place], [address] Urea nitrogen [Mass/Vol] 9 mg/dL Normal 7-18 [facility] Comment on above: Performed By: #### L 509.6000, L100.0100, L500.4050, L500.4100, L501.9520, L501.9985, L3100.5850 #### [facility] [address] [place], [address] Hemoglobin A1con 08-22-2023 HbA1c (Bld) [Mass fraction] 5.4 % Normal 3.8-5.6 [facility] Comment on above: Result Comment: Norm al < 5.7 % Prediabetic 5.7 - 6.4 % Diabetic >or= 6.5 % Please note range changes. Performed By: #### L 100.0100, L500.4050, L501.10988, L501.9520, L506.0400, L3100.5850 #### [facility] [address] [place], [address] Lipid Profileon 08-22-2023 Cholesterol [Mass/Vol] 253 mg/dL High 200 [facility] Comment on above: Result Comment: <200 mg/dL Desirable 200-240 mg/dL Borderline >240 mg/dL High Risk Performed By: #### L 509.6000, L100.0100, L500.4050, L500.4100, L501.9520, L501.9985, L3100.5850 #### [facility] [address] [place], [address] Cholesterol in HDL [Mass/Vol] 56 mg/dL Normal [facility] Comment on above: Result Comment: The drugs N-Acetylcysteine and Metamizole may falsely depress this assay. Reference Range HDL <40 mg/dL Low HDL Cholesterol HDL >or= 60 mg/dL High HDL Cholesterol Performed By: #### L 509.6000, L100.0100, L500.4050, L500.4100, L501.9520, L501.9985, L3100.5850 #### [facility] [address] [place], [address] Cholesterol in LDL [Mass/Vol] 153 mg/dL High 0-130 [facility] [place] Comment on above: Performed By: #### L 509.6000, L100.0100, L500.4050, L500.4100, L501.9520, L501.9985, L3100.5850 #### [facility] [address] [place], [place], [id number] Cholesterol in VLDL [Mass/Vol] 44 mg/dL High 5-40 [facility] Comment on above: Performed By: #### L 509.6000, L100.0100, L500.4050, L500.4100, L501.9520, L501.9985, L3100.5850 #### [facility] [address] [place], [address] Triglyceride [Mass/Vol] 218 mg/dL High [facility] Comment on above: Result Comment: The drugs N-Acetylcysteine and Metamizole may falsely depress this assay. Serum Triglycerides Reference Interval Normal <150 mg/dL Borderline high 150 - 199 mg/dL High 200 - 499 mg/dL Very High > or = 500 mg/dL Performed By: #### L 509.6000, L100.0100, L500.4050, L500.4100, L501.9520, L501.9985, L3100.5850 #### [facility] [address] [place], [place], [id number] Thyroid Stim Hormone (TSH)on 08-22-2023 TSH 4.38 uIU/mL High 0.358-3.74 [facility] Comment on above: Performed By: #### L 100.0100, L500.4050, L501.76522, L501.9520, L506.0400, L3100.5850 #### [facility] [address] [place], [place], [id number] Amphetamineon 08-13-2023 Amphetamine (U) [Mass/Vol] 1159 ng/mL Normal [facility] Comment on above: Result Comment: [...] developed and its performance characteristics determined by [facility]. It has not been cleared or approved by the [place] Food and Drug Administration. This test was performed in a CLIA certified laboratory and is intended for clinical purposes. Performed By: #### 1 9346-6 #### [facility] ([place]) ([id number]) [address] [place] [address] Amphetamine (U) [Mass/Vol]on 08-13-2023 Methamphetamine (U) [Mass/Vol] ug/mL [facility] Comment on above: Performed By: #### 1 9346-6 #### [facility] ([facility]) ([id number]) [address] [place] [address] Methylenedioxyamphetamine (U) [Mass/Vol] <200 [facility] Comment on above: Performed By: #### 1 9346-6 #### [facility] ([place]) ([id number]) [address] [place] [address] Methylenedioxyethylamphet amine (U) [Mass/Vol] <200 [facility] Comment on above: Performed By: #### 1 9346-6 #### [facility] ([place]) ([id number]) [address] [place] [address] Methylenedioxymethampheta mine (U) [Mass/Vol] <200 Normal [facility] Comment on above: Performed By: #### 1 9346-6 #### [facility] ([place]) ([id number]) [address] [place] [address] Phentermine Confirm (U) [Mass/Vol] <200 [facility] Comment on above: Result Comment: Perf ormed By: [facility] [address] [place] [address] Learning Disabled Teacher: Caden Pruitt MD, PhD CLIA Number: [id number] Performed By: #### 1 9346-6 #### [facility] ([place]) ([id number]) [address] [place] [address] Drugs of abuse screen W Refl ex confirm panel (U)on 08-13-2023 Amphetamines Screen Ql (U) Positive Abnormal Presumptive Negative [facility] Comment on above: Order Comment: [...] By: #### 8 7428-9 #### [facility] ([id number]) [facility] ([facility]) [address] [place] [address] Barbiturates Screen Ql (U) Negative Normal Presumptive Negative [facility] Comment on above: Order Comment: [...] #### 8 7428-9 #### [facility]ST[facility] L ([id number]) [facility] ([facility]) [address] [place] [address] Benzodiazepines Ql (U) Negative Normal Presu mptive Negative [facility] [facility] Comment on above: Order Comment: [...] #### 8 7428-9 #### CONSTANCE SCHMOTZER L ([id number]) [facility] ([facility]) [address] [place] [id number] Benzoylecgonine Screen Ql (U) Negative Normal Presumptive Negative [facility] Ambulatory Comment on above: Order Comment: [...] #### 8 7428-9 #### CONSTANCE SCHMOTZER L ([id number]) [facility] ([facility]) [address] [place] [id number] Cannabinoids Screen Ql (U) Negative Normal Presumptive Negative [facility] Ambulatory Comment on above: Order Comment: [...] By: #### 8 7428-9 #### CONSTANCE Medina ([id number]) [facility] ([facility]) [address] [place] [address] fentaNYL+Norfentanyl Screen Ql (U) Negative Normal Presumptive Negative [facility] Ambulatory Comment on above: Order Comment: [...] By: #### 8 7428-9 #### CONSTANCE Medina ([id number]) [facility] ([facility]) [address] [place] [address] Methadone Screen Ql (U) Negative Normal Pres umptive Negative [facility] Ambulatory Comment on above: Order Comment: [...] CUTO FF LEVEL: 150 NG/ML The metabolite I-sazes-ehvcqobztucizh (LAAM) is not detected by this method in concentrations that would be found in the urine of patients on LAAM therapy. Performed By: #### 8 7428-9 #### CONSTANCE Medina ([id number]) [facility] ([facility]) [address] [place] [address] Opiates Screen Ql (U) Negative Normal Presum ptive Negative [facility] Ambulatory Comment on above: Order Comment: [...] By: #### 8 7428-9 #### CONSTANCE Medina ([id number]) [facility] ([facility]) [address] [place] [address] oxyCODONE+oxyMORphone Screen Ql (U) Negative Normal Presumptive Negative [facility] Ambulatory Comment on above: Order Comment: [...] By: #### 8 7428-9 #### CONSTANCE Medina ([id number]) [facility] ([facility]) [address] [place] [address] Phencyclidine Ql (U) Negative Normal Presump tive Negative [facility] Ambulatory Comment on above: Order Comment: [...] By: #### 8 7428-9 #### CONSTANCE Medina ([id number]) [facility] ([facility]) [address] [place], [place] [id number] Basophil percentageOrdered B y: Varsha Beth on 05-18-2023 Bilirubin [Mass/Vol] 0.40 mg/dL 0.20-1.00 [facility] Comment on above: For patients on eltr ombopag therapy, use of [place] TBIL is not recommended. Chloride [Moles/Vol] 105 mmol/L 98-107 [facility] Cholesterol [Mass/Vol] 195 mg/dL <200 [facility] Comment on above: <200 mg/dL Desirable 200-240 mg/dL Borderline >240 mg/dL High Risk Glucose [Mass/Vol] 80 mg/dL 74-106 [facility] Potassium [Moles/Vol] 3.8 mmol/L 3.5-5.1 [facility] Protein [Mass/Vol] 7.8 g/dL 6.4-8.2 [facility] Sodium [Moles/Vol] 137 mmol/L 136-145 [facility] Triglyceride [Mass/Vol] 87 mg/dL <199 [facility] Comment on above: The drugs N-Acetylcy steine and Metamizole may falsely depress this assay.Serum Triglycerides Reference Interval Normal <150 mg/dL Borderline high 150 - 199 mg/dL High 200 - 499 mg/dL Very High > or = 500 mg/dL Laboratory - Chemistry and C hemistry - challengeOrdered By: Varsha Beth on 05-18-2023 Albumin/Globulin [Mass ratio] 1.2 {ratio} 0.9-2.4 [facility] ALP [Catalytic activity/Vol] 80 U/L 45-117 [facility] ALT [Catalytic activity/Vol] 33 U/L 13-56 [facility] Cholesterol in HDL [Mass/Vol] 58 mg/dL >40 [facility] Comment on above: The drugs N-Acetylcy steine and Metamizole may falsely depress this assay. Reference Range HDL <40 mg/dL Low HDL Cholesterol HDL >or= 60 mg/dL High HDL Cholesterol Cholesterol in LDL [Mass/Vol] 120 mg/dL 0-130 [facility] CO2 [Moles/Vol] 29.0 mmol/L 21.0-32.0 [facility] Globulin (S) [Mass/Vol] 3.6 g/dL 2.2-4.2 [facility] Urea nitrogen/Creatinine [Mass ratio] 7.9 mg/mg 10-20 [facility] No Panel InformationOrdered By: Varsha Beth on 05-18-2023 Estimated GFR (MDRD) Amer 89 mL/min >60 [facility] Comment on above: GFR Calc Estimated GFR (MDRD) Non-Af Amer 74 mL/min >60 [facility] Comment on above: Non- GFR Calc VLDL Cholesterol 17 mg/dL 5-40 [facility] Serum or plasma calcitriol m easurement (mass/volume)Ordered By: Varsha Beth on 05-18-2023 1,25-dihydroxyvitamin D3 [Mass/Vol] 45.3 pg/mL 24.8-81.5 [facility] Comment on above: Performed at: [address] [id number] Director: Amie Wilson MD, Phone: [phone] Serum or plasma calcium raven urement (mass/volume)Ordered By: Varsha Beth on 05-18-2023 Calcium [Mass/Vol] 10.4 mg/dL 8.5-10.1 [facility] Serum or plasma creatinine m easurement (mass/volume)Ordered By: Varsha Beth on 05-18-2023 Creatinine [Mass/Vol] 0.88 mg/dL 0.55-1.02 [facility] Comment on above: The validity of the calculated GFR & GFRAA in patients over 70 years has not been determined. Clinical correlation is essential. Serum or plasma thyroid stim ulating hormone (TSH) measurement (units/volume)Ordered By: Varsha Beth on 05-18-2023 TSH Qn 2.63 uIU/mL 0.358-3.74 [facility] Serum or plasma urea nitroge n measurement (mass/volume)Ordered By: Varsha Beth on 05-18-2023 Urea nitrogen [Mass/Vol] 7 mg/dL 7-18 [facility] Thin prep Papanicolaou smear with manual screeningOrdered By: Varsha Beth on 05-18-2023 Thin prep Papanicolaou smear with manual screening 4.2 g/dL 3.2-5.0 [facility] Thin prep Papanicolaou smear with manual screening 14 U/L 15-37 [facility] Thin prep Papanicolaou smear with manual screening 3 5-15 [facility] Thin prep Papanicolaou smear with manual screening 1.04 ng/dL 0.76-1.46 [facility] Absolute lymphocyte countOrd ered By: Varsha Beth on 02-09-2023 Lymphocytes Auto (Unsp spec) [#/Vol] 4.43 10*3/uL 0.83-4.51 [facility] Basophil percentageOrdered B y: Varsha Beth on 02-09-2023 Basophils/100 WBC (Bld) 0.5 % 0-1 [facility] Bilirubin [Mass/Vol] 0.20 mg/dL 0.20-1.00 [facility] Comment on above: For patients on eltr ombopag therapy, use of [place] TBIL is not recommended. Chloride [Moles/Vol] 107 mmol/L 98-107 [facility] Cholesterol [Mass/Vol] 195 mg/dL <200 [facility] Comment on above: <200 mg/dL Desirable 200-240 mg/dL Borderline >240 mg/dL High Risk Eosinophils/100 WBC (Bld) 0.6 % 0-5 [facility] Glucose [Mass/Vol] 97 mg/dL 74-106 [facility] Neutrophils (Bld) [#/Vol] 10.8 10*3/uL 2.0-7.7 [facility] Neutrophils/100 WBC (Bld) 65.6 % 47-70 [facility] Potassium [Moles/Vol] 4.2 mmol/L 3.5-5.1 [facility] Protein [Mass/Vol] 7.5 g/dL 6.4-8.2 [facility] Sodium [Moles/Vol] 139 mmol/L 136-145 [facility] Triglyceride [Mass/Vol] 127 mg/dL <199 [facility] Comment on above: The drugs N-Acetylcy steine and Metamizole may falsely depress this assay.Serum Triglycerides Reference Interval Normal <150 mg/dL Borderline high 150 - 199 mg/dL High 200 - 499 mg/dL Very High > or = 500 mg/dL WBC (Bld) [#/Vol] 16.4 10*3/uL 4.4-11.0 [facility] Blood erythrocytes count (nu mber/volume)Ordered By: Varsha Beth on 02-09-2023 RBC (Bld) [#/Vol] 4.65 10*6/uL 4.2-5.4 [facility] Blood hemoglobin measurement (mass/volume)Ordered By: Varsha Beth on 02-09-2023 Hemoglobin (Bld) [Mass/Vol] 14.4 g/dL 12.0-15.0 [facility] Blood lymphocytes/100 leukoc ytesOrdered By: Varsha Beth on 02-09-2023 Lymphocytes/100 WBC (Bld) 27.1 % 19-41 [facility] Blood monocytes/100 leukocyt esOrdered By: Varsha Beth on 02-09-2023 Monocytes/100 WBC (Bld) 5.6 % 0-10 [facility] Blood platelet mean volumeOr dered By: Varsha Beth on 02-09-2023 Platelet mean volume (Bld) [Entitic vol] 10.0 fL 6.2-12.0 [facility] Determination of erythrocyte mean corpuscular volume (MCV)Ordered By: Varsha Beth on 02-09-2023 MCV (RBC) [Entitic vol] 94.0 fL 81-99 [facility] Hematocrit Auto (Bld) [Volum e fraction]Ordered By: Varsha Beth on 02-09-2023 Hematocrit (Bld) [Volume fraction] 43.7 % 37-47 [facility] Laboratory - Chemistry and C hemistry - challengeOrdered By: Varsha Beth on 02-09-2023 ALP [Catalytic activity/Vol] 78 U/L 45-117 [facility] ALT [Catalytic activity/Vol] 45 U/L 13-56 [facility] CO2 [Moles/Vol] 28.0 mmol/L 21.0-32.0 [facility] Free T4 [Mass/Vol] 1.01 ng/dL 0.76-1.46 [facility] Globulin (S) [Mass/Vol] 3.7 g/dL 2.2-4.2 [facility] Urea nitrogen/Creatinine [Mass ratio] 15.0 mg/mg 10-20 [facility] Laboratory - Hematology and Cell countsOrdered By: Varsha Beth on 02-09-2023 Erythrocyte distribution width (RBC) [Entitic vol] 47.7 fL 35.1-43.9 [facility] Erythrocyte distribution width (RBC) [Ratio] 14.0 % 11.6-14.6 [facility] Immature granulocytes/100 WBC (Bld) 0.600 % 0.0-0.9 [facility] Comment on above: IG% - Immature Granu locytes (promyelocytes, myelocytes and metamyelocytes) > 1% indicates that a LEFT SHIFT is Present. MCH (RBC) [Entitic mass] 31.0 pg 27.0-32.0 [facility] Nucleated RBC/100 WBC (Bld) [Ratio] 0 % 0-5 [facility] MCHC Auto (RBC) [Mass/Vol]Or dered By: Varsha Beth on 02-09-2023 MCHC (RBC) [Mass/Vol] 33.0 g/dL 32-36 [facility] No Panel InformationOrdered By: Varsha Beth on 02-09-2023 Estimated GFR (MDRD) Amer 91 mL/min >60 [facility] Comment on above: GFR Calc Estimated GFR (MDRD) Non-Af Amer 75 mL/min >60 [facility] Comment on above: Non- GFR Calc Thyroid Stimulating Hormone (TSH) 0.65 uIU/mL 0.358-3.74 [facility] Vitamin D 25-Hydroxy 31.2 ng/mL [facility] Comment on above: Vitamin D 25(OH) Sta tus Range Deficiency <20 ng/mL (50nmol/L) Insufficiency 20 - 30 ng/mL (50 - 75 nmol/L) Sufficiency 30 - 100 ng/mL (75 - 250 nmol/L) Toxicity >100 ng/mL (>250 nmol/L) Platelets bldOrdered By: Jaspal Beth on 02-09-2023 Platelets (Bld) [#/Vol] 376 10*3/uL 150-450 [facility] Serum or plasma albumin raven urement (mass/volume)Ordered By: Varsha Beth on 02-09-2023 Albumin [Mass/Vol] 3.8 g/dL 3.2-5.0 [facility] Serum or plasma albumin/glob ulin mass ratioOrdered By: Varsha Beth on 02-09-2023 Albumin/Globulin [Mass ratio] 1.0 {ratio} 0.9-2.4 [facility] Serum or plasma calcium raven urement (mass/volume)Ordered By: Varsha Beth on 02-09-2023 Calcium [Mass/Vol] 9.9 mg/dL 8.5-10.1 [facility] Serum or plasma cholesterol in HDL measurement (mass/volume)Ordered By: Varsha Beth on 02-09-2023 Cholesterol in HDL [Mass/Vol] 50 mg/dL >40 [facility] Comment on above: The drugs N-Acetylcy steine and Metamizole may falsely depress this assay. Reference Range HDL <40 mg/dL Low HDL Cholesterol HDL >or= 60 mg/dL High HDL Cholesterol Serum or plasma cholesterol in VLDL measurement (mass/volume)Ordered By: Varsha Beth on 02-09-2023 Cholesterol in VLDL [Mass/Vol] 25 mg/dL 5-40 [facility] Serum or plasma creatinine m easurement (mass/volume)Ordered By: Varsha Beth on 02-09-2023 Creatinine [Mass/Vol] 0.87 mg/dL 0.55-1.02 [facility] Comment on above: The validity of the calculated GFR & GFRAA in patients over 70 years has not been determined. Clinical correlation is essential. Serum or plasma low density lipoprotein (LDL) cholesterol measurement (mass/volume)Ordered By: Varsha Beth on 02-09-2023 Cholesterol in LDL [Mass/Vol] 120 mg/dL 0-130 [facility] Serum or plasma urea nitroge n measurement (mass/volume)Ordered By: Varsha Beth on 02-09-2023 Urea nitrogen [Mass/Vol] 13 mg/dL 7-18 [facility] Thin prep Papanicolaou smear with manual screeningOrdered By: Varsha Beth on 02-09-2023 Thin prep Papanicolaou smear with manual screening 19 U/L 15-37 [facility] Thin prep Papanicolaou smear with manual screening 4 5-15 [facility] Absolute lymphocyte countOrd ered By: Varsha Beth on 11-02-2022 Lymphocytes Auto (Unsp spec) [#/Vol] 3.92 10*3/uL 0.83-4.51 [facility] Basophil percentageOrdered B y: Varsha Beth on 11-02-2022 Basophils/100 WBC (Bld) 0.5 % 0-1 [facility] Bilirubin [Mass/Vol] 0.30 mg/dL 0.20-1.00 [facility] Comment on above: For patients on eltr ombopag therapy, use of [place] TBIL is not recommended. Chloride [Moles/Vol] 105 mmol/L 98-107 [facility] Cholesterol [Mass/Vol] 180 mg/dL <200 [facility] Comment on above: <200 mg/dL Desirable 200-240 mg/dL Borderline >240 mg/dL High Risk Eosinophils/100 WBC (Bld) 0.6 % 0-5 [facility] Glucose [Mass/Vol] 83 mg/dL 74-106 [facility] Neutrophils (Bld) [#/Vol] 7.9 10*3/uL 2.0-7.7 [facility] Neutrophils/100 WBC (Bld) 61.8 % 47-70 [facility] Potassium [Moles/Vol] 3.9 mmol/L 3.5-5.1 [facility] Protein [Mass/Vol] 7.4 g/dL 6.4-8.2 [facility] Sodium [Moles/Vol] 138 mmol/L 136-145 [facility] Triglyceride [Mass/Vol] 102 mg/dL <199 [facility] Comment on above: The drugs N-Acetylcy steine and Metamizole may falsely depress this assay.Serum Triglycerides Reference Interval Normal <150 mg/dL Borderline high 150 - 199 mg/dL High 200 - 499 mg/dL Very High > or = 500 mg/dL WBC (Bld) [#/Vol] 12.7 10*3/uL 4.4-11.0 [facility] Blood erythrocytes count (nu mber/volume)Ordered By: Varsha Beth on 11-02-2022 RBC (Bld) [#/Vol] 5.02 10*6/uL 4.2-5.4 [facility] Blood hemoglobin measurement (mass/volume)Ordered By: Varsha Beth on 11-02-2022 Hemoglobin (Bld) [Mass/Vol] 15.5 g/dL 12.0-15.0 [facility] Blood lymphocytes/100 leukoc ytesOrdered By: Varsha Beth on 11-02-2022 Lymphocytes/100 WBC (Bld) 30.9 % 19-41 [facility] Blood monocytes/100 leukocyt esOrdered By: Varsha Beth on 11-02-2022 Monocytes/100 WBC (Bld) 5.8 % 0-10 [facility] Blood platelet mean volumeOr dered By: Varsha Beth on 11-02-2022 Platelet mean volume (Bld) [Entitic vol] 9.7 fL 6.2-12.0 [facility] Determination of erythrocyte mean corpuscular volume (MCV)Ordered By: Varsha Beth on 11-02-2022 MCV (RBC) [Entitic vol] 93.0 fL 81-99 [facility] Hematocrit Auto (Bld) [Volum e fraction]Ordered By: Varsha Beth on 11-02-2022 Hematocrit (Bld) [Volume fraction] 46.7 % 37-47 [facility] Laboratory - Chemistry and C hemistry - challengeOrdered By: Varsha Beth on 11-02-2022 ALP [Catalytic activity/Vol] 86 U/L 45-117 [facility] ALT [Catalytic activity/Vol] 44 U/L 13-56 [facility] CO2 [Moles/Vol] 28.0 mmol/L 21.0-32.0 [facility] Free T4 [Mass/Vol] 1.08 ng/dL 0.76-1.46 [facility] Globulin (S) [Mass/Vol] 3.6 g/dL 2.2-4.2 [facility] Urea nitrogen/Creatinine [Mass ratio] 8.3 mg/mg 10-20 [facility] Laboratory - Hematology and Cell countsOrdered By: Varsha Beth on 11-02-2022 Erythrocyte distribution width (RBC) [Entitic vol] 48.3 fL 35.1-43.9 [facility] Erythrocyte distribution width (RBC) [Ratio] 14.2 % 11.6-14.6 [facility] Immature granulocytes/100 WBC (Bld) 0.400 % 0.0-0.9 [facility] Comment on above: IG% - Immature Granu locytes (promyelocytes, myelocytes and metamyelocytes) > 1% indicates that a LEFT SHIFT is Present. MCH (RBC) [Entitic mass] 30.9 pg 27.0-32.0 [facility] Nucleated RBC/100 WBC (Bld) [Ratio] 0 % 0-5 [facility] MCHC Auto (RBC) [Mass/Vol]Or dered By: Varsha Beth on 11-02-2022 MCHC (RBC) [Mass/Vol] 33.2 g/dL 32-36 [facility] No Panel InformationOrdered By: Varsha Beth on 11-02-2022 Estimated GFR (MDRD) Amer 95 mL/min >60 [facility] Comment on above: GFR Calc Estimated GFR (MDRD) Non-Af Amer 78 mL/min >60 [facility] Comment on above: Non- GFR Calc Thyroid Stimulating Hormone (TSH) 1.08 uIU/mL 0.358-3.74 [facility] Platelets bldOrdered By: Jaspal Beth on 11-02-2022 Platelets (Bld) [#/Vol] 338 10*3/uL 150-450 [facility] Serum or plasma albumin raven urement (mass/volume)Ordered By: Varsha Beth on 11-02-2022 Albumin [Mass/Vol] 3.8 g/dL 3.2-5.0 [facility] Serum or plasma albumin/glob ulin mass ratioOrdered By: Varsha Beth on 11-02-2022 Albumin/Globulin [Mass ratio] 1.1 {ratio} 0.9-2.4 [facility] Serum or plasma calcium raven urement (mass/volume)Ordered By: Varsha Beth on 11-02-2022 Calcium [Mass/Vol] 10.1 mg/dL 8.5-10.1 [facility] Serum or plasma cholesterol in HDL measurement (mass/volume)Ordered By: Varsha Beth on 11-02-2022 Cholesterol in HDL [Mass/Vol] 51 mg/dL >40 [facility] Comment on above: The drugs N-Acetylcy steine and Metamizole may falsely depress this assay. Reference Range HDL <40 mg/dL Low HDL Cholesterol HDL >or= 60 mg/dL High HDL Cholesterol Serum or plasma cholesterol in VLDL measurement (mass/volume)Ordered By: Varsha Beth on 11-02-2022 Cholesterol in VLDL [Mass/Vol] 20 mg/dL 5-40 [facility] Serum or plasma creatinine m easurement (mass/volume)Ordered By: Varsha Beth on 11-02-2022 Creatinine [Mass/Vol] 0.84 mg/dL 0.55-1.02 [facility] Comment on above: The validity of the calculated GFR & GFRAA in patients over 70 years has not been determined. Clinical correlation is essential. Serum or plasma low density lipoprotein (LDL) cholesterol measurement (mass/volume)Ordered By: Varsha Beth on 11-02-2022 Cholesterol in LDL [Mass/Vol] 109 mg/dL 0-130 [facility] Serum or plasma urea nitroge n measurement (mass/volume)Ordered By: Varsha Beth on 11-02-2022 Urea nitrogen [Mass/Vol] 7 mg/dL 7-18 [facility] Thin prep Papanicolaou smear with manual screeningOrdered By: Varsha Beth on 11-02-2022 Thin prep Papanicolaou smear with manual screening 20 U/L 15-37 [facility] Thin prep Papanicolaou smear with manual screening 5 5-15 [facility] Basophil percentageOrdered B y: Varsha Beth on 07-25-2022 Bilirubin [Mass/Vol] 0.30 mg/dL 0.20-1.00 [facility] Comment on above: For patients on eltr ombopag therapy, use of [place] TBIL is not recommended. Chloride [Moles/Vol] 104 mmol/L 98-107 [facility] Cholesterol [Mass/Vol] 189 mg/dL <200 [facility] Comment on above: <200 mg/dL Desirable 200-240 mg/dL Borderline >240 mg/dL High Risk Glucose [Mass/Vol] 94 mg/dL 74-106 [facility] Potassium [Moles/Vol] 4.1 mmol/L 3.5-5.1 [facility] Protein [Mass/Vol] 7.5 g/dL 6.4-8.2 [facility] Sodium [Moles/Vol] 139 mmol/L 136-145 [facility] Triglyceride [Mass/Vol] 154 mg/dL <199 [facility] Comment on above: The drugs N-Acetylcy steine and Metamizole may falsely depress this assay.Serum Triglycerides Reference Interval Normal <150 mg/dL Borderline high 150 - 199 mg/dL High 200 - 499 mg/dL Very High > or = 500 mg/dL Laboratory - Chemistry and C hemistry - challengeOrdered By: Varsha Beth on 07-25-2022 ALP [Catalytic activity/Vol] 82 U/L 45-117 [facility] ALT [Catalytic activity/Vol] 41 U/L 13-56 [facility] CO2 [Moles/Vol] 29.0 mmol/L 21.0-32.0 [facility] Free T4 [Mass/Vol] 0.80 ng/dL 0.76-1.46 [facility] Globulin (S) [Mass/Vol] 3.6 g/dL 2.2-4.2 [facility] Urea nitrogen/Creatinine [Mass ratio] 9.9 mg/mg 10-20 [facility] No Panel InformationOrdered By: Varsha Beth on 07-25-2022 Estimated GFR (MDRD) Amer 86 mL/min >60 [facility] Comment on above: GFR Calc Estimated GFR (MDRD) Non-Af Amer 71 mL/min >60 [facility] Comment on above: Non- GFR Calc Thyroid Stimulating Hormone (TSH) 3.43 uIU/mL 0.358-3.74 [facility] Serum or plasma albumin raven urement (mass/volume)Ordered By: Varsha Beth on 07-25-2022 Albumin [Mass/Vol] 3.9 g/dL 3.2-5.0 [facility] Serum or plasma albumin/glob ulin mass ratioOrdered By: Varsha Beth on 07-25-2022 Albumin/Globulin [Mass ratio] 1.1 {ratio} 0.9-2.4 [facility] Serum or plasma calcium raven urement (mass/volume)Ordered By: Varsha Beth on 07-25-2022 Calcium [Mass/Vol] 10.5 mg/dL 8.5-10.1 [facility] Serum or plasma cholesterol in HDL measurement (mass/volume)Ordered By: Varsha Beth on 07-25-2022 Cholesterol in HDL [Mass/Vol] 51 mg/dL >40 [facility] Comment on above: The drugs N-Acetylcy steine and Metamizole may falsely depress this assay. Reference Range HDL <40 mg/dL Low HDL Cholesterol HDL >or= 60 mg/dL High HDL Cholesterol Serum or plasma cholesterol in VLDL measurement (mass/volume)Ordered By: Varsha Beth on 07-25-2022 Cholesterol in VLDL [Mass/Vol] 31 mg/dL 5-40 [facility] Serum or plasma creatinine m easurement (mass/volume)Ordered By: Varsha Beth on 07-25-2022 Creatinine [Mass/Vol] 0.91 mg/dL 0.55-1.02 [facility] Comment on above: The validity of the calculated GFR & GFRAA in patients over 70 years has not been determined. Clinical correlation is essential. Serum or plasma low density lipoprotein (LDL) cholesterol measurement (mass/volume)Ordered By: Varsha Beth on 07-25-2022 Cholesterol in LDL [Mass/Vol] 107 mg/dL 0-130 [facility] Serum or plasma urea nitroge n measurement (mass/volume)Ordered By: Varsha Beth on 07-25-2022 Urea nitrogen [Mass/Vol] 9 mg/dL 7-18 [facility] Thin prep Papanicolaou smear with manual screeningOrdered By: Varsha Beth on 07-25-2022 Thin prep Papanicolaou smear with manual screening 16 U/L 15-37 [facility] Thin prep Papanicolaou smear with manual screening 6 5-15 [facility] AMPHETAMINE CONFIRM,URINEon 04-16-2022 AMPHETAMINES 3171 ng/mL Normal [facility] Comment on above: Result Comment: [...] developed and its performance characteristics determined by [facility]. It has not been cleared or approved by the US Food and Drug Administration. This test was performed in a CLIA certified laboratory and is intended for clinical purposes. Performed By: #### A MPC1 #### [facility] [address] [place] [address] MDA <200 Normal [facility] Comment on above: Performed By: #### A MPC1 #### [facility] [address] [place] [address] MDEA <200 Normal [facility] Comment on above: Performed By: #### A MPC1 #### [facility] [address] [place] [address] MDMA <200 Normal [facility] Comment on above: Performed By: #### A MPC1 #### [address] [place] [address] METHAMPHETAMINE <200 Normal [facility] Comment on above: Performed By: #### A MPC1 #### [facility] [address] [place] [address] PHENTERMINE <200 Normal [facility] Comment on above: Result Comment: Perf ormed By: [address] [place] [address] Learning Disabled Teacher: Cadne Pruitt MD, PhD Performed By: #### A MPC1 #### [address] [address] Absolute lymphocyte countOrd ered By: Varsha Beth on 04-14-2022 Lymphocytes Auto (Unsp spec) [#/Vol] 3.82 10*3/uL 0.83-4.51 [facility] Basophil percentageOrdered B y: Varsha Beth on 04-14-2022 Basophils/100 WBC (Bld) 0.6 % 0-1 [facility] Bilirubin [Mass/Vol] 0.30 mg/dL 0.20-1.00 [facility] Comment on above: For patients on eltr ombopag therapy, use of Dimension [place] TBIL is not recommended. Chloride [Moles/Vol] 106 mmol/L 98-107 [facility] Eosinophils/100 WBC (Bld) 0.9 % 0-5 [facility] Glucose [Mass/Vol] 93 mg/dL 74-106 [facility] Neutrophils (Bld) [#/Vol] 6.9 10*3/uL 2.0-7.7 [facility] Neutrophils/100 WBC (Bld) 59.6 % 47-70 [facility] Potassium [Moles/Vol] 4.2 mmol/L 3.5-5.1 [facility] Protein [Mass/Vol] 7.5 g/dL 6.4-8.2 [facility] Sodium [Moles/Vol] 139 mmol/L 136-145 [facility] WBC (Bld) [#/Vol] 11.6 10*3/uL 4.4-11.0 [facility] Blood erythrocytes count (nu mber/volume)Ordered By: Varsha Beth on 04-14-2022 RBC (Bld) [#/Vol] 4.85 10*6/uL 4.2-5.4 [facility] Blood hemoglobin measurement (mass/volume)Ordered By: Varsha Beth on 04-14-2022 Hemoglobin (Bld) [Mass/Vol] 14.8 g/dL 12.0-15.0 [facility] Blood lymphocytes/100 leukoc ytesOrdered By: Varsha Beth on 04-14-2022 Lymphocytes/100 WBC (Bld) 32.8 % 19-41 [facility] Blood monocytes/100 leukocyt esOrdered By: Varsha Beth on 04-14-2022 Monocytes/100 WBC (Bld) 5.7 % 0-10 [facility] Blood platelet mean volumeOr dered By: Varsha Beth on 04-14-2022 Platelet mean volume (Bld) [Entitic vol] 9.5 fL 6.2-12.0 [facility] Determination of erythrocyte mean corpuscular volume (MCV)Ordered By: Varsha Beth on 04-14-2022 MCV (RBC) [Entitic vol] 91.3 fL 81-99 [facility] Hematocrit Auto (Bld) [Volum e fraction]Ordered By: Varsha Beth on 04-14-2022 Hematocrit (Bld) [Volume fraction] 44.3 % 37-47 [facility] Laboratory - Chemistry and C hemistry - challengeOrdered By: Varsha Beth on 04-14-2022 ALP [Catalytic activity/Vol] 79 U/L 45-117 [facility] ALT [Catalytic activity/Vol] 41 U/L 13-56 [facility] CO2 [Moles/Vol] 30.0 mmol/L 21.0-32.0 [facility] Globulin (S) [Mass/Vol] 3.6 g/dL 2.2-4.2 [facility] Urea nitrogen/Creatinine [Mass ratio] 12.8 mg/mg 10-20 [facility] Laboratory - Hematology and Cell countsOrdered By: Varsha Beth on 04-14-2022 Erythrocyte distribution width (RBC) [Entitic vol] 46.7 fL 35.1-43.9 [facility] Erythrocyte distribution width (RBC) [Ratio] 14.0 % 11.6-14.6 [facility] Immature granulocytes/100 WBC (Bld) 0.400 % 0.0-0.9 [facility] Comment on above: IG% - Immature Granu locytes (promyelocytes, myelocytes and metamyelocytes) > 1% indicates that a LEFT SHIFT is Present. MCH (RBC) [Entitic mass] 30.5 pg 27.0-32.0 [facility] Nucleated RBC/100 WBC (Bld) [Ratio] 0 % 0-5 [facility] MCHC Auto (RBC) [Mass/Vol]Or dered By: Varsha Beth on 04-14-2022 MCHC (RBC) [Mass/Vol] 33.4 g/dL 32-36 [facility] No Panel InformationOrdered By: Varsha Beth on 04-14-2022 Estimated GFR (MDRD) Amer 84 mL/min >60 [facility] Comment on above: GFR Calc Estimated GFR (MDRD) Non-Af Amer 69 mL/min >60 [facility] Comment on above: Non- GFR Calc Thyroid Stimulating Hormone (TSH) 1.47 uIU/mL 0.358-3.74 [facility] Platelets bldOrdered By: Jaspal Beth on 04-14-2022 Platelets (Bld) [#/Vol] 383 10*3/uL 150-450 [facility] Serum or plasma albumin raven urement (mass/volume)Ordered By: Varsha Beth on 04-14-2022 Albumin [Mass/Vol] 3.9 g/dL 3.2-5.0 [facility] Serum or plasma albumin/glob ulin mass ratioOrdered By: Varsha Beth on 04-14-2022 Albumin/Globulin [Mass ratio] 1.1 {ratio} 0.9-2.4 [facility] Serum or plasma calcium raven urement (mass/volume)Ordered By: Varsha Beth on 04-14-2022 Calcium [Mass/Vol] 10.2 mg/dL 8.5-10.1 [facility] Serum or plasma creatinine m easurement (mass/volume)Ordered By: Varsha Beth on 04-14-2022 Creatinine [Mass/Vol] 0.94 mg/dL 0.55-1.02 [facility] Comment on above: The validity of the calculated GFR & GFRAA in patients over 70 years has not been determined. Clinical correlation is essential. Serum or plasma urea nitroge n measurement (mass/volume)Ordered By: Varsha Beth on 04-14-2022 Urea nitrogen [Mass/Vol] 12 mg/dL 7-18 [facility] Thin prep Papanicolaou smear with manual screeningOrdered By: Varsha Beth on 04-14-2022 Thin prep Papanicolaou smear with manual screening 16 U/L 15-37 [facility] Thin prep Papanicolaou smear with manual screening 3 5-15 [facility] DRUG SCREEN,URINE WITH REFLE X TO CONFIRMATIONon 04-12-2022 AMPHETAMINE SCREEN,U Positive Abnormal NEGATIVE [facility] Comment on above: Result Comment: CUTO FF LEVEL: 500 NG/ML Cross-reactivity has been reported with high concentrations of the following drugs: buproprion, chloroquine, chlorpromazine, ephedrine, mephentermine, fenfluramine, phentermine, phenylpropanolamine, pseudoephedrine, and propranolol. Performed By: #### D RUGR #### [facility] [address] [place] [address] BARBITURATES SCREEN,U Negative Normal NEGATIVE [facility] Comment on above: Result Comment: CUTO FF LEVEL: 200 NG/ML Performed By: #### D RUGR #### [facility] [address] [place] [address] BENZODIAZEPINES SCREEN,U Negative Normal NEGATIVE [facility] Comment on above: Result Comment: CUTO FF LEVEL: 200 NG/ML Performed By: #### D RUGR #### [facility] [address] [place] [address] CANNABINOIDS SCREEN,U Negative Normal NEGATIVE [facility] Comment on above: Result Comment: CUTO FF LEVEL: 50 NG/ML Performed By: #### D RUGR #### [facility] [address] [place] [address] COCAINE METABOLITE SCREEN,U Negative Normal NEGATIVE [facility] Comment on above: Result Comment: CUTO FF LEVEL: 150 NG/ML Performed By: #### D RUGR #### [facility] [address] [place] [address] DRUG SCREEN COMMENT SEE BELOW Normal [facility] Comment on above: Result Comment: [...] directors. Performed By: #### D RUGR #### [facility] [address] [place] [address] FENTANYL SCREEN,URINE Negative Normal NEGATIVE [facility] Comment on above: Result Comment: CUTO FF LEVEL: 5 NG/ML Performed By: #### D RUGR #### [facility] [address] [place] [address] METHADONE SCREEN,U Negative Normal NEGATIVE [facility] Comment on above: Result Comment: CUTO FF LEVEL: 150 NG/ML The metabolite K-hukwb-iutbsspbvyvzif (LAAM) is not detected by this method in concentrations that would be found in the urine of patients on LAAM therapy. Performed By: #### D RUGR #### [facility] [address] [place] [address] OPIATES SCREEN,U Negative Normal NEGATIVE [facility] Comment on above: Result Comment: CUTO FF LEVEL: 300 NG/ML The opiate screen does not detect fentanyl, meperidine, or tramadol. Oxycodone is not consistently detected (refer to Oxycodone Screen, Urine result). Performed By: #### D RUGR #### [facility] [address] [place] [address] OXYCODONE SCREEN,U Negative Normal NEGATIVE [facility] Comment on above: Result Comment: CUTO FF LEVEL: 100 NG/ML This test will accurately detect both oxycodone and oxymorphone. Performed By: #### D RUGR #### [facility] [address] [place] [address] PCP SCREEN,U Negative Normal NEGATIVE [facility] Comment on above: Result Comment: CUTO FF LEVEL: 25 NG/ML Cross-reactivity has been reported with dextromethorphan. Performed By: #### D RUGR #### [facility] [address] [place] [address] Laboratory - Drug toxicology on 04-11-2022 Amphetamine (U) [Mass/Vol] 3171 ng/mL [facility] Work Phone: Comment on above: [...] developed and its performance characteristics determined by [facility]. It has not been cleared or approved by the [place] Food and Drug Administration. This test was performed in a CLIA certified laboratory and is intended for clinical purposes. Amphetamines Screen Ql (U) Positive Abnormal NEGATIVE [facility] Work Phone: Comment on above: CUTOFF LEVEL: 500 NG /ML Cross-reactivity has been reported with high concentrations of the following drugs: buproprion, chloroquine, chlorpromazine, ephedrine, mephentermine, fenfluramine, phentermine, phenylpropanolamine, pseudoephedrine, and propranolol. Barbiturates Screen Ql (U) Negative NEGATIVE [facility] Work Phone: Comment on above: CUTOFF LEVEL: 200 NG /ML Benzodiazepines Ql (U) Negative NEGATIVE [facility] Work Phone: Comment on above: CUTOFF LEVEL: 200 NG /ML Benzoylecgonine Screen Ql (U) Negative NEGATIVE [facility] Work Phone: Comment on above: CUTOFF LEVEL: 150 NG /ML Cannabinoids Screen Ql (U) Negative NEGATIVE [facility] Work Phone: Comment on above: CUTOFF LEVEL: 50 NG/ ML Methadone Screen Ql (U) Negative NEGATIVE [facility] Work Phone: Comment on above: CUTOFF LEVEL: 150 NG /ML The metabolite J-npwpn-jfmnalwqjfwlhl (LAAM) is not detected by this method in concentrations that would be found in the urine of patients on LAAM therapy. Methamphetamine (U) [Mass/Vol] ug/mL [facility] Work Phone: Methylenedioxyamphetamine (U) [Mass/Vol] <200 [facility] Work Phone: Methylenedioxyethylamphet amine (U) [Mass/Vol] <200 [facility] Work Phone: Methylenedioxymethampheta mine (U) [Mass/Vol] <200 [facility] Work Phone: Opiates Screen Ql (U) Negative NEGATIVE [facility] Work Phone: Comment on above: CUTOFF LEVEL: 300 NG /ML The opiate screen does not detect fentanyl, meperidine, or tramadol. Oxycodone is not consistently detected (refer to Oxycodone Screen, Urine result). oxyCODONE+oxyMORphone Screen Ql (U) Negative NEGATIVE [facility] Work Phone: Comment on above: CUTOFF LEVEL: 100 NG /ML This test will accurately detect both oxycodone and oxymorphone. Phencyclidine Ql (U) Negative NEGATIVE [facility] Work Phone: Comment on above: CUTOFF LEVEL: 25 NG/ ML Cross-reactivity has been reported with dextromethorphan. Phentermine Confirm (U) [Mass/Vol] <200 [facility] Work Phone: Comment on above: Performed By: SHASHANK sanchez[address] [place] [id number] Director: Caden Pruitt MD, PhD No Panel Informationon 04-11 Negative NEGATIVE [facility] Work Phone: Comment on above: CUTOFF LEVEL: 5 NG/M L SEE BELOW [facility] Work Phone: Comment on above: Drug [...] to call 911 and being brought to [facility] on 04/07. This was due to severe [...] Signatures Electr (more content not included)... Normal [facility] Absolute lymphocyte countOrd ered By: Dr. López on 04-07-2022 Lymphocytes Auto (Unsp spec) [#/Vol] 5.16 10*3/uL 0.83-4.51 [facility] Basophil percentageOrdered B y: Dr. López on 04-07-2022 Basophil percentage 0 SEEN /hpf 0-5 [facility] Basophils/100 WBC (Bld) 0.6 % 0-1 [facility] Bilirubin [Mass/Vol] 0.60 mg/dL 0.20-1.00 [facility] Comment on above: For patients on eltr ombopag therapy, use of Dimension [place] TBIL is not recommended. Chloride [Moles/Vol] 105 mmol/L 98-107 [facility] Eosinophils/100 WBC (Bld) 0.9 % 0-5 [facility] Glucose [Mass/Vol] 123 mg/dL 74-106 [facility] Comment on above: Fasting Glucose resu lt from 100 to 125 mg/dL suggests IMPAIRED HOMEOSTASIS per A.D.A. criteria. Neutrophils (Bld) [#/Vol] 9.1 10*3/uL 2.0-7.7 [facility] Neutrophils/100 WBC (Bld) 57.9 % 47-70 [facility] Potassium [Moles/Vol] 4.8 mmol/L 3.5-5.1 [facility] Comment on above: Moderate Hemolysis, Result may be falsely increased. Protein [Mass/Vol] 8.3 g/dL 6.4-8.2 [facility] Sodium [Moles/Vol] 135 mmol/L 136-145 [facility] WBC (Bld) [#/Vol] 15.6 10*3/uL 4.4-11.0 [facility] Beta hCG serum qualOrdered B y: Dr. López on 04-07-2022 Beta HCG ( test) Ql Negative [facility] Bilirubin Test strip Ql (U)O rdered By: Dr. López on 04-07-2022 Bilirubin Ql (U) Negative Negative [facility] Blood erythrocytes count (nu mber/volume)Ordered By: Dr. López on 04-07-2022 RBC (Bld) [#/Vol] 5.11 10*6/uL 4.2-5.4 [facility] Blood hemoglobin measurement (mass/volume)Ordered By: Dr. López on 04-07-2022 Hemoglobin (Bld) [Mass/Vol] 15.6 g/dL 12.0-15.0 [facility] Blood lymphocytes/100 leukoc ytesOrdered By: Dr. López on 04-07-2022 Lymphocytes/100 WBC (Bld) 33.1 % 19-41 [facility] Blood manual differential co mment interpretation (narrative result)Ordered By: Dr. López on 04-07-2022 Manual differential comment [place] (Bld) [Interp] SCANNED [facility] Blood monocytes/100 leukocyt esOrdered By: Dr. López on 04-07-2022 Monocytes/100 WBC (Bld) 7.0 % 0-10 [facility] Blood platelet mean volumeOr dered By: Dr. López on 04-07-2022 Platelet mean volume (Bld) [Entitic vol] 10.0 fL 6.2-12.0 [facility] Determination of erythrocyte mean corpuscular volume (MCV)Ordered By: Dr. López on 04-07-2022 MCV (RBC) [Entitic vol] 89.6 fL 81-99 [facility] Hematocrit Auto (Bld) [Volum e fraction]Ordered By: Dr. López on 04-07-2022 Hematocrit (Bld) [Volume fraction] 45.8 % 37-47 [facility] Ketones Test strip Ql (U)Ord ered By: Dr. López on 04-07-2022 Ketones Ql (U) Negative Negative [facility] Laboratory - Chemistry and C hemistry - challengeOrdered By: Dr. López on 04-07-2022 ALP [Catalytic activity/Vol] 83 U/L 45-117 [facility] ALT [Catalytic activity/Vol] 37 U/L 13-56 [facility] CO2 [Moles/Vol] 22.0 mmol/L 21.0-32.0 [facility] Globulin (S) [Mass/Vol] 4.2 g/dL 2.2-4.2 [facility] Urea nitrogen/Creatinine [Mass ratio] 7.7 mg/mg 10-20 [facility] Laboratory - Drug toxicology Ordered By: Dr. López on 04-07-2022 Amphetamines Ql (U) Positive <1000 ng/mL [facility] Benzodiazepines Ql (U) Negative < 200 ng/mL [facility] Cannabinoids Screen Ql (U) Negative < 50 ng/mL [facility] Cocaine Ql (U) Negative < 300 ng/mL [facility] Opiates Ql (U) Negative < 300 ng/mL [facility] Laboratory - Hematology and Cell countsOrdered By: Dr. López on 04-07-2022 Erythrocyte distribution width (RBC) [Entitic vol] 45.7 fL 35.1-43.9 [facility] Erythrocyte distribution width (RBC) [Ratio] 14.0 % 11.6-14.6 [facility] Immature granulocytes/100 WBC (Bld) 0.500 % 0.0-0.9 [facility] Comment on above: IG% - Immature Granu locytes (promyelocytes, myelocytes and metamyelocytes) > 1% indicates that a LEFT SHIFT is Present. MCH (RBC) [Entitic mass] 30.5 pg 27.0-32.0 [facility] Nucleated RBC/100 WBC (Bld) [Ratio] 0 % 0-5 [facility] MCHC Auto (RBC) [Mass/Vol]Or dered By: Dr. López on 04-07-2022 MCHC (RBC) [Mass/Vol] 34.1 g/dL 32-36 [facility] Mucus LM Ql (Urine sed)Order ed By: Dr. López on 04-07-2022 Mucus Ql (Urine sed) 0 SEEN /hpf [facility] Nitrite Test strip Ql (U)Ord ered By: Dr. López on 04-07-2022 Nitrite Ql (U) Negative Negative [facility] No Panel InformationOrdered By: Dr. López on 04-07-2022 Estimated Creatinine Clearance Calc 65.22 ml/min [facility] Estimated GFR (MDRD) Amer 86 mL/min >60 [facility] Comment on above: GFR Calc Estimated GFR (MDRD) Non-Af Amer 71 mL/min >60 [facility] Comment on above: Non- GFR Calc Ethyl Alcohol Level < 3.0 mg/dL [facility] Comment on above: The serum:whole bloo d ethanol ratio is approximately 1.14and varies slightly with hematocrit. Medical Alcohol reference interval and critical value innon-tolerant individuals; 50 - 100 Impairment 100 Intoxication 100 - 250 Severe Poisoning 250 - 400 Deep/possible fatal coma MDMA (Ecstasy) Screen Positive < 500 ng/mL [facility] Thyroid Stimulating Hormone (TSH) 2.34 uIU/mL 0.358-3.74 [facility] Troponin I High Sensitivity 3 pg/mL 3.0-54.0 [facility] Comment on above: Please Note: [place] t Units and Gender Specific Reference Ranges. For more information see Policy Stat Procedure [place] High Sensitivity Troponin (TNIH) and attachments. Urine Barbiturates Screen Negative < 200 ng/m L [facility] Urine Drug Screen Comment [facility] Comment on above: CONFIRMATORY TESTING FOR ALL [...] Methadone Screen Negative < 300 ng/mL [facility] Platelets bldOrdered By: Dr. López on 04-07-2022 Platelets (Bld) [#/Vol] 415 10*3/uL 150-450 [facility] Protein Test strip Ql (U)Ord ered By: Dr. López on 04-07-2022 Protein Ql (U) Negative Negative [facility] Serum or plasma albumin raven urement (mass/volume)Ordered By: Dr. López on 04-07-2022 Albumin [Mass/Vol] 4.1 g/dL 3.2-5.0 [facility] Serum or plasma albumin/glob ulin mass ratioOrdered By: Dr. López on 04-07-2022 Albumin/Globulin [Mass ratio] 1.0 {ratio} 0.9-2.4 [facility] [facility] [place] Serum or plasma calcium raven urement (mass/volume)Ordered By: Dr. López on 04-07-2022 Calcium [Mass/Vol] 10.1 mg/dL 8.5-10.1 [facility] Serum or plasma creatinine m easurement (mass/volume)Ordered By: Dr. López on 04-07-2022 Creatinine [Mass/Vol] 0.92 mg/dL 0.55-1.02 [facility] Comment on above: The validity of the calculated GFR & GFRAA in patients over 70 years has not been determined. Clinical correlation is essential. Serum or plasma urea nitroge n measurement (mass/volume)Ordered By: Dr. López on 04-07-2022 Urea nitrogen [Mass/Vol] 7 mg/dL 7-18 [facility] [place] Squamous epithelial cells de tection in urine sediment by light microscopyOrdered By: Dr. López on 04-07-2022 Epithelial cells.squamous LM Ql (Urine sed) 0-5 SEEN /hpf 5-10 [facility] [place] Thin prep Papanicolaou smear with manual screeningOrdered By: Dr. López on 04-07-2022 Thin prep Papanicolaou smear with manual screening 43 U/L 15-37 [facility] [place] Comment on above: Moderate Hemolysis, Result may be falsely increased. Thin prep Papanicolaou smear with manual screening 8 5-15 [facility] [place] Urine blood detectionOrdered By: Dr. López on 04-07-2022 RBC Ql (U) Negative Negative [facility] [place] RBC Ql (U) 0 SEEN /hpf 0-5 [facility] [place] Urine clarityOrdered By: Dr. López on 04-07-2022 Clarity (U) Clear Clear [facility] [place] Urine color determinationOrd ered By: Dr. López on 04-07-2022 Color (U) Yellow Yellow [facility] [place] Urine glucose detectionOrder ed By: Dr. López on 04-07-2022 Glucose Ql (U) Normal mg/dl Normal [facility] [place] Urine leukocyte esterase det ection by dipstickOrdered By: Dr. López on 04-07-2022 Leukocyte esterase Test strip Ql (U) Negative Negative [facility] [place] Urine pHOrdered By: Dr. Saeid rangel on 04-07-2022 pH (U) 6.0 [pH] 5.0 - 8.0 [facility] [place] Urine phencyclidine (PCP) de tectionOrdered By: Dr. López on 04-07-2022 Phencyclidine Ql (U) Negative < 25 ng/mL [facility] Urine sediment bacteria coun t by microscopy (number/high power field)Ordered By: Dr. López on 04-07-2022 Bacteria LM.HPF (Urine sed) [#/Area] 0 /[HPF] None Seen [facility] [place] Urine specific gravity measu rementOrdered By: Dr. López on 04-07-2022 Specific gravity (U) [Rel density] 1.015 1.002-1.030 [facility] [place] Urobilinogen Auto test strip Ql (U)Ordered By: Dr. López on 04-07-2022 Urobilinogen Ql (U) Normal mg/dl Normal [facility] Absolute lymphocyte counton 12-16-2021 Lymphocytes Auto (Unsp spec) [#/Vol] 2.63 10*3/uL 0.83-4.51 [facility] [place] Work Phone: Basophil percentageon 2021 Basophil percentage < 0.2 AI 0.0-0.9 [facility] Work Phone: Basophils/100 WBC (Bld) 0.6 % 0-1 [facility] Work Phone: Bilirubin [Mass/Vol] 0.30 mg/dL 0.20-1.00 [facility] Work Phone: Comment on above: For patients on eltr ombopag therapy, use of Dimension [place] TBIL is not recommended. Chloride [Moles/Vol] 104 mmol/L 98-107 [facility] Work Phone: Cholesterol [Mass/Vol] 213 mg/dL <200 [facility] Work Phone: Comment on above: <200 mg/dL Desirable 200-240 mg/dL Borderline >240 mg/dL High Risk Eosinophils/100 WBC (Bld) 1.7 % 0-5 [facility] [place] Work Phone: Glucose [Mass/Vol] 98 mg/dL 74-106 [facility] Work Phone: Neutrophils (Bld) [#/Vol] 7.6 10*3/uL 2.0-7.7 [facility] [place] Work Phone: Neutrophils/100 WBC (Bld) 68.3 % 47-70 [facility] [place] Work Phone: Potassium [Moles/Vol] 4.3 mmol/L 3.5-5.1 [facility] Work Phone: Protein [Mass/Vol] 7.8 g/dL 6.4-8.2 [facility] Work Phone: Sodium [Moles/Vol] 141 mmol/L 136-145 [facility] Work [facility]: Triglyceride [Mass/Vol] 172 mg/dL <199 [facility] Work Phone: Comment on above: The drugs N-Acetylcy steine and Metamizole may falsely depress this assay.Serum Triglycerides Reference Interval Normal <150 mg/dL Borderline high 150 - 199 mg/dL High 200 - 499 mg/dL Very High > or = 500 mg/dL WBC (Bld) [#/Vol] 11.2 10*3/uL 4.4-11.0 [facility] Work Phone: Blood erythrocytes count (nu mber/volume)on 12-16-2021 RBC (Bld) [#/Vol] 5.03 10*6/uL 4.2-5.4 [facility] Work Phone: Blood hemoglobin measurement (mass/volume)on 12-16-2021 Hemoglobin (Bld) [Mass/Vol] 15.4 g/dL 12.0-15.0 [facility] [place] Work Phone: Blood lymphocytes/100 leukoc yteson 12-16-2021 Lymphocytes/100 WBC (Bld) 23.6 % 19-41 [facility] [place] Work Phone: Blood monocytes/100 leukocyt eson 12-16-2021 Monocytes/100 WBC (Bld) 5.4 % 0-10 [facility] Work Phone: Blood platelet mean volumeon 12-16-2021 Platelet mean volume (Bld) [Entitic vol] 9.9 fL 6.2-12.0 [facility] [place] Work Phone: Determination of erythrocyte mean corpuscular volume (MCV)on 12-16-2021 MCV (RBC) [Entitic vol] 92.6 fL 81-99 [facility] Work Phone: Hematocrit Auto (Bld) [Volum e fraction]on 12-16-2021 Hematocrit (Bld) [Volume fraction] 46.6 % 37-47 [facility] [place] Work Phone: Laboratory - Chemistry and C hemistry - challengeon 12-16-2021 ALP [Catalytic activity/Vol] 91 U/L 45-117 [facility] [place] Work Phone: ALT [Catalytic activity/Vol] 64 U/L 13-56 [facility] [place] Work Phone: CO2 [Moles/Vol] 30.0 mmol/L 21.0-32.0 [facility] [place] Work Phone: Free T4 [Mass/Vol] 0.92 ng/dL 0.76-1.46 [facility] Work Phone: Globulin (S) [Mass/Vol] 3.7 g/dL 2.2-4.2 [facility] Work Phone: Urea nitrogen/Creatinine [Mass ratio] 11.0 mg/mg 10-20 [facility] [place] Work Phone: Laboratory - Hematology and Cell countson 12-16-2021 Erythrocyte distribution width (RBC) [Entitic vol] 46.2 fL 35.1-43.9 [facility] Work Phone: Erythrocyte distribution width (RBC) [Ratio] 13.5 % 11.6-14.6 [facility] [place] Work Phone: Immature granulocytes/100 WBC (Bld) 0.400 % 0.0-0.9 [facility] [place] Work Phone: Comment on above: IG% - Immature Granu locytes (promyelocytes, myelocytes and metamyelocytes) > 1% indicates that a LEFT SHIFT is Present. MCH (RBC) [Entitic mass] 30.6 pg 27.0-32.0 [facility] [place] Work Phone: Nucleated RBC/100 WBC (Bld) [Ratio] 0 % 0-5 [facility] [place] Work Phone: MCHC Auto (RBC) [Mass/Vol]on 12-16-2021 MCHC (RBC) [Mass/Vol] 33.0 g/dL 32-36 [facility] Work Phone: No Panel Informationon 12-16 Centromere B Antibody <0.2 AI 0.0-0.9 [facility] Work Phone: Estimated GFR (MDRD) Amer 87 mL/min >60 [facility] [place] Work Phone: Comment on above: GFR Calc Estimated GFR (MDRD) Non-Af Amer 72 mL/min >60 [facility] [place] Work Phone: Comment on above: Non- GFR Calc [employer] Antibody 0.7 AI 0.0-0.9 [facility] [place] Work Phone: Thyroid Stimulating Hormone (TSH) 2.08 uIU/mL 0.358-3.74 [facility] [place] Work Phone: Platelets bldon 12-16-2021 Platelets (Bld) [#/Vol] 357 10*3/uL 150-450 [facility] [place] Work Phone: Serum DNA double strand anti body assay (units/volume)on 12-16-2021 DNA double strand Ab Qn (S) 1 [IU]/mL 0-9 [facility] [place] Work Phone: Comment on above: Negative <5 Equivoca l 5 - 9 Positive >9 Serum Maria Isabel-1 antibody assay (u nits/volume)on 12-16-2021 Maria Isabel-1 extractable nuclear Ab Qn (S) <0.2 AI 0.0-0.9 [facility] [place] Work Phone: Serum Scl-70 extractable nuc lear antibody assay (units/volume)on 12-16-2021 SCL-70 extractable nuclear Ab Qn (S) <0.2 AI 0.0-0.9 [facility] [place] Work Phone: Serum Soni extractable nucl ear antibody detectionon 12-16-2021 Soni extractable nuclear Ab Ql (S) <0.2 AI 0.0-0.9 [facility] [place] Work Phone: Serum or plasma albumin raven urement (mass/volume)on 12-16-2021 Albumin [Mass/Vol] 4.1 g/dL 3.2-5.0 [facility] Work Phone: Serum or plasma albumin/glob ulin mass ratioon 12-16-2021 Albumin/Globulin [Mass ratio] 1.1 {ratio} 0.9-2.4 [facility] [place] Work Phone: Serum or plasma calcitriol m easurement (mass/volume)on 12-16-2021 1,25-dihydroxyvitamin D3 [Mass/Vol] 33.2 pg/mL 24.8-81.5 [facility] [place] Work Phone: Comment on above: Please note refere nce interval changePerformed at: [facility] [address] [id number] Director: Michael Arevalo PhD, Phone: [phone] at: - [facility] [address] [id number] Director: Amie Wilson MD, Phone: [phone] Serum or plasma calcium raven urement (mass/volume)on 12-16-2021 Calcium [Mass/Vol] 10.5 mg/dL 8.5-10.1 [facility] Work Phone: Serum or plasma cholesterol in HDL measurement (mass/volume)on 12-16-2021 Cholesterol in HDL [Mass/Vol] 49 mg/dL >40 [facility] [place] Work Phone: Comment on above: The drugs N-Acetylcy steine and Metamizole may falsely depress this assay. Reference Range HDL <40 mg/dL Low HDL Cholesterol HDL >or= 60 mg/dL High HDL Cholesterol Serum or plasma cholesterol in VLDL measurement (mass/volume)on 12-16-2021 Cholesterol in VLDL [Mass/Vol] 34 mg/dL 5-40 [facility] [place] Work Phone: Serum or plasma creatinine m easurement (mass/volume)on 12-16-2021 Creatinine [Mass/Vol] 0.91 mg/dL 0.55-1.02 [facility] Work Phone: Comment on above: The validity of the calculated GFR & GFRAA in patients over 70 years has not been determined. Clinical correlation is essential. Serum or plasma low density lipoprotein (LDL) cholesterol measurement (mass/volume)on 12-16-2021 Cholesterol in LDL [Mass/Vol] 130 mg/dL 0-130 [facility] [place] Work Phone: Serum or plasma urea nitroge n measurement (mass/volume)on 12-16-2021 Urea nitrogen [Mass/Vol] 10 mg/dL 7-18 [facility] [place] Work Phone: Thin prep Papanicolaou smear with manual screeningon 12-16-2021 Thin prep Papanicolaou smear with manual screening 35 U/L 15-37 [facility] [place] Work Phone: Thin prep Papanicolaou smear with manual screening 7 5-15 [facility] [place] Work Phone: Office Visit (Family Medicin e)on 11-25-2021 Follow-up visit Diagnoses/Problems Tinea pedis (110.4) (B35.3) Hyperlipidemia (272.4) (E78.5) ADHD, 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 Vitals Vital Signs Recorded: 25Nov2021 09:44AM Gdcnfsxsuot97.3 F Srkggtev486 Cwyetveoe68 Zmwguv733 lb BMI Nwcbvdxkvb66.9 kg/m2 BSA Calculated1.85 Tobacco Useb) No Falls [...] a) No falls within the last year [facility] Work Phone: Tobacco use status [facility] b) No M [facility] Work Phone: AMPHETAMINE CONFIRM,URINEon 2021 AMPHETAMINES 2708 ng/mL Normal [facility] Comment on above: Result Comment: [...] developed and its performance characteristics determined by [facility]. It has not been cleared or approved by the US Food and Drug Administration. This test was performed in a CLIA certified laboratory and is intended for clinical purposes. Performed By: #### A MPC1 #### [address] [place] [address] MDA <200 Normal [facility] Comment on above: Performed By: #### A MPC1 #### [facility] [address] [place] [address] MDEA <200 Normal [facility] Comment on above: Performed By: #### A MPC1 #### [facility] [address] [place] [address] MDMA <200 Normal [facility] Comment on above: Performed By: #### A MPC1 #### [facility] [address] [place] [address], [place] [address] METHAMPHETAMINE <200 Normal [facility] Comment on above: Performed By: #### A MPC1 #### [facility] [address] [place] [address] PHENTERMINE <200 Normal [facility] Comment on above: Result Comment: Perf ormed By: [facility] [address] [place] [address] Learning Disabled Teacher: Guerda Rodriguez MD Performed By: #### A [facility] #### [facility] [address] [place] [address] DRUG SCREEN,URINE WITH REFLE X TO CONFIRMATIONon 08-26-2021 AMPHETAMINE SCREEN,U Positive Abnormal NEGATIVE [facility] Comment on above: Result Comment: CUTO FF LEVEL: 500 NG/ML Cross-reactivity has been reported with high concentrations of the following drugs: buproprion, chloroquine, chlorpromazine, ephedrine, mephentermine, fenfluramine, phentermine, phenylpropanolamine, pseudoephedrine, and propranolol. Performed By: #### D RUGR #### [facility] [address] [place] [address] BARBITURATES SCREEN,U Negative Normal NEGATIVE [facility] Comment on above: Result Comment: CUTO FF LEVEL: 200 NG/ML Performed By: #### D RUGR #### [facility] [address] [place] [address] BENZODIAZEPINES SCREEN,U Negative Normal NEGATIVE [facility] Comment on above: Result Comment: CUTO FF LEVEL: 200 NG/ML Performed By: #### D RUGR #### [facility] [address] [place] [address] CANNABINOIDS SCREEN,U Negative Normal NEGATIVE [facility] Comment on above: Result Comment: CUTO FF LEVEL: 50 NG/ML Performed By: #### D RUGR #### [facility] [address] [place] [address] COCAINE METABOLITE SCREEN,U Negative Normal NEGATIVE [facility] Comment on above: Result Comment: CUTO FF LEVEL: 150 NG/ML Performed By: #### D RUGR #### [facility] [address] [place] [address] DRUG SCREEN COMMENT SEE BELOW Normal [facility] Comment on above: Result Comment: [...] directors. Performed By: #### D RUGR #### [facility] [address] [place] [address] FENTANYL SCREEN,URINE Negative Normal NEGATIVE [facility] Comment on above: Result Comment: CUTO FF LEVEL: 1 NG/ML Performed By: #### D RUGR #### [facility] [address] [place] [address] METHADONE SCREEN,U Negative Normal NEGATIVE [facility] Comment on above: Result Comment: CUTO FF LEVEL: 150 NG/ML The metabolite L-gsnix-cubstqjiqyaspa (LAAM) is not detected by this method in concentrations that would be found in the urine of patients on LAAM therapy. Performed By: #### D RUGR #### [facility] [address] [place] [id number] OPIATES SCREEN,U Negative Normal NEGATIVE [facility] Comment on above: Result Comment: CUTO FF LEVEL: 300 NG/ML The opiate screen does not detect fentanyl, meperidine, or tramadol. Oxycodone is not consistently detected (refer to Oxycodone Screen, Urine result). Performed By: #### D RUGR #### [facility] [address] [place] [id number] OXYCODONE SCREEN,U Negative Normal NEGATIVE [facility] Comment on above: Result Comment: CUTO FF LEVEL: 100 NG/ML This test will accurately detect both oxycodone and oxymorphone. Performed By: #### D RUGR #### [facility] [address] [place] [id number] PCP SCREEN,U Negative Normal NEGATIVE [facility] Comment on above: Result Comment: CUTO FF LEVEL: 25 NG/ML Cross-reactivity has been reported with dextromethorphan. Performed By: #### D RUGR #### [facility] [address] [place] [address] Laboratory - Drug toxicology on 08-25-2021 Amphetamine (U) [Mass/Vol] 2708 ng/mL [facility] Work Phone: Comment on above: Consistent [...] developed and its performance characteristics determined by [facility]. It has not been cleared or approved by the US Food and Drug Administration. This test was performed in a CLIA certified laboratory and is intended for clinical purposes. Amphetamines Screen Ql (U) Positive Abnormal NEGATIVE [facility] Work Phone: Comment on above: CUTOFF LEVEL: 500 NG /ML Cross-reactivity has been reported with high concentrations of the following drugs: buproprion, chloroquine, chlorpromazine, ephedrine, mephentermine, fenfluramine, phentermine, phenylpropanolamine, pseudoephedrine, and propranolol. Barbiturates Screen Ql (U) Negative NEGATIVE [facility] Work Phone: Comment on above: CUTOFF LEVEL: 200 NG /ML Benzodiazepines Ql (U) Negative NEGATIVE [facility] Work Phone: Comment on above: CUTOFF LEVEL: 200 NG /ML Benzoylecgonine Screen Ql (U) Negative NEGATIVE [facility] Work Phone: Comment on above: CUTOFF LEVEL: 150 NG /ML Cannabinoids Screen Ql (U) Negative NEGATIVE [facility] Work Phone: Comment on above: CUTOFF LEVEL: 50 NG/ ML Methadone Screen Ql (U) Negative NEGATIVE [facility] Work Phone: Comment on above: CUTOFF LEVEL: 150 NG /ML The metabolite V-qzvfn-zvbgfnltramnrb (LAAM) is not detected by this method in concentrations that would be found in the urine of patients on LAAM therapy. Methamphetamine (U) [Mass/Vol] ug/mL [facility] Work Phone: Methylenedioxyamphetamine (U) [Mass/Vol] <200 [facility] Work Phone: Methylenedioxyethylamphet amine (U) [Mass/Vol] <200 [facility] Work Phone: Methylenedioxymethampheta mine (U) [Mass/Vol] <200 [facility] Work Phone: Opiates Screen Ql [...] Phone: Comment on above: Performed By: SHASHANK [email or web address] [address]ultl Director: Guerda Rodriguez MD No Panel Informationon 08-25 Negative NEGATIVE [facility] Work Phone: Comment on above: CUTOFF LEVEL: 1 NG/M L SEE BELOW [facility] Work Phone: Comment on above: [...] to the laboratory medical directors. 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) Anxiety disorder (300.00) (F41.9) Depression (311) (F32.A) Added by Problem List Migration; 2012-05-21; Moved to [facility] Feb 15 2013 4:11PM Hyperlipidemia (272.4) (E78.5) Orders ADHD, predominantly inattentive type Renew: Vyvanse 50 MG Oral Capsule; TAKE 1 CAPSULE DAILY IN THE MORNING Anxiety disorder Renew: buPROPion HCl ER (XL) 300 MG Oral Tablet Extended Release 24 Hour; TAKE 1 TABLET DAILY last appt-06/07/20 next appt-09/06/20 last BW-05/05/20 [facility] 06/18/20 Renew: Venlafaxine HCl ER 75 MG Oral Capsule Extended Release 24 Hour; TAKE 3 CAPSULES DAILY last appt-06/07/20 next appt-09/06/20 last BW-05/05/20 [facility] 06/18/20 Health Maintenance Drug Screen, Urine With [...] by Problem List Migration; 2012-05-21; Moved to [facility] Feb 15 2013 4:11PM Dermatitis (692.9) [...] Tobacco use status [facility] b) No [facility] Work Phone: Absolute lymphocyte counton 08-18-2021 Lymphocytes Auto (Unsp spec) [#/Vol] 3.63 10*3/uL 0.83-4.51 [facility] [place] Work Phone: Basophil percentageon 2021 Basophils/100 WBC (Bld) 0.4 % 0-1 [facility] Work Phone: Bilirubin [Mass/Vol] 0.40 mg/dL 0.20-1.00 [facility] Work Phone: Comment on above: For patients on eltr ombopag therapy, use of Dimension [place] TBIL is not recommended. Chloride [Moles/Vol] 103 mmol/L 98-107 [facility] Work Phone: Cholesterol [Mass/Vol] 218 mg/dL <200 [facility] Work Phone: Comment on above: <200 mg/dL Desirable 200-240 mg/dL Borderline >240 mg/dL High Risk Eosinophils/100 WBC (Bld) 1.3 % 0-5 [facility] [place] Work Phone: Glucose [Mass/Vol] 90 mg/dL 74-106 [facility] Work Phone: Neutrophils (Bld) [#/Vol] 8.2 10*3/uL 2.0-7.7 [facility] [place] Work Phone: Neutrophils/100 WBC (Bld) 64.5 % 47-70 [facility] [place] Work Phone: Potassium [Moles/Vol] 3.8 mmol/L 3.5-5.1 [facility] Work Phone: Protein [Mass/Vol] 8.0 g/dL 6.4-8.2 [facility] Work Phone: Sodium [Moles/Vol] 138 mmol/L 136-145 [facility] Work Phone: Triglyceride [Mass/Vol] 167 mg/dL <199 [facility] Work Phone: Comment on above: The drugs N-Acetylcy steine and Metamizole may falsely depress this assay.Serum Triglycerides Reference Interval Normal <150 mg/dL Borderline high 150 - 199 mg/dL High 200 - 499 mg/dL Very High > or = 500 mg/dL WBC (Bld) [#/Vol] 12.7 10*3/uL 4.4-11.0 [facility] Work Phone: Blood erythrocytes count (nu mber/volume)on 08-18-2021 RBC (Bld) [#/Vol] 5.16 10*6/uL 4.2-5.4 [facility] Work Phone: Blood hemoglobin measurement (mass/volume)on 08-18-2021 Hemoglobin (Bld) [Mass/Vol] 15.8 g/dL 12.0-15.0 [facility] [place] Work Phone: Blood lymphocytes/100 leukoc yteson 08-18-2021 Lymphocytes/100 WBC (Bld) 28.7 % 19-41 [facility] [place] Work Phone: Blood monocytes/100 leukocyt eson 08-18-2021 Monocytes/100 WBC (Bld) 4.7 % 0-10 [facility] Work Phone: Blood platelet mean volumeon 08-18-2021 Platelet mean volume (Bld) [Entitic vol] 10.3 fL 6.2-12.0 [facility] [place] Work Phone: Determination of erythrocyte mean corpuscular volume (MCV)on 08-18-2021 MCV (RBC) [Entitic vol] 89.9 fL 81-99 [facility] Work Phone: Hematocrit Auto (Bld) [Volum e fraction]on 08-18-2021 Hematocrit (Bld) [Volume fraction] 46.4 % 37-47 [facility] [place] Work Phone: Laboratory - Chemistry and C hemistry - challengeon 08-18-2021 ALP [Catalytic activity/Vol] 80 U/L 45-117 [facility] [place] Work Phone: ALT [Catalytic activity/Vol] 48 U/L 13-56 [facility] [place] Work Phone: CO2 [Moles/Vol] 28.0 mmol/L 21.0-32.0 [facility] [place] Work Phone: Globulin (S) [Mass/Vol] 3.9 g/dL 2.2-4.2 [facility] Work Phone: Urea nitrogen/Creatinine [Mass ratio] 12.1 mg/mg 10-20 [facility] [place] Work Phone: Laboratory - Hematology and Cell countson 08-18-2021 Erythrocyte distribution width (RBC) [Entitic vol] 44.2 fL 35.1-43.9 [facility] Work Phone: Erythrocyte distribution width (RBC) [Ratio] 13.4 % 11.6-14.6 [facility] [place] Work Phone: Immature granulocytes/100 WBC (Bld) 0.400 % 0.0-0.9 [facility] [place] Work Phone: Comment on above: IG% - Immature Granu locytes (promyelocytes, myelocytes and metamyelocytes) > 1% indicates that a LEFT SHIFT is Present. MCH (RBC) [Entitic mass] 30.6 pg 27.0-32.0 [facility] [place] Work Phone: Nucleated RBC/100 WBC (Bld) [Ratio] 0 % 0-5 [facility] [place] Work Phone: MCHC Auto (RBC) [Mass/Vol]on 08-18-2021 MCHC (RBC) [Mass/Vol] 34.1 g/dL 32-36 [facility] Work Phone: No Panel Informationon 08-18 Estimated GFR (MDRD) Amer 79 mL/min >60 [facility] [place] Work Phone: Comment on above: GFR Calc Estimated GFR (MDRD) Non-Af Amer 65 mL/min >60 [facility] [place] Work Phone: Comment on above: Non- GFR Calc Thyroid Stimulating Hormone (TSH) 1.60 uIU/mL 0.358-3.74 [facility] [place] Work Phone: Platelets bldon 08-18-2021 Platelets (Bld) [#/Vol] 347 10*3/uL 150-450 [facility] [place] Work Phone: Serum Liam Payton virus cap saqib IgG antibody assay (units/volume)on 08-18-2021 EBV capsid IgG Qn (S) 127.0 [arb'U]/mL 0.0-17.9 [facility] [place] Work Phone: Comment on above: Negative <18.0 Equiv ocal 18.0 - 21.9 Positive >21.9 Serum Liam Payton virus cap saqib IgM antibody assay (units/volume)on 08-18-2021 EBV capsid IgM Qn (S) [arb'U]/mL 0.0-35.9 [facility] Work Phone: Comment on above: Negative <36.0 Equiv ocal 36.0 - 43.9 Positive >43.9 Serum Liam Payton virus nuc lear IgG antibody assay (units/volume)on 08-18-2021 EBV nuclear IgG Qn (S) > 600.0 U/mL 0.0-17.9 [facility] [place] Work Phone: Comment on above: Negative <18.0 Equiv ocal 18.0 - 21.9 Positive >21.9 Serum or plasma albumin raven urement (mass/volume)on 08-18-2021 Albumin [Mass/Vol] 4.1 g/dL 3.2-5.0 [facility] Work Phone: Serum or plasma albumin/glob ulin mass ratioon 08-18-2021 Albumin/Globulin [Mass ratio] 1.1 {ratio} 0.9-2.4 [facility] [place] Work Phone: Serum or plasma calcium raven urement (mass/volume)on 08-18-2021 Calcium [Mass/Vol] 10.5 mg/dL 8.5-10.1 [facility] Work Phone: Serum or plasma cholesterol in HDL measurement (mass/volume)on 08-18-2021 Cholesterol in HDL [Mass/Vol] 49 mg/dL >40 [facility] [place] Work Phone: Comment on above: The drugs N-Acetylcy steine and Metamizole may falsely depress this assay. Reference Range HDL <40 mg/dL Low HDL Cholesterol HDL >or= 60 mg/dL High HDL Cholesterol Serum or plasma cholesterol in VLDL measurement (mass/volume)on 08-18-2021 Cholesterol in VLDL [Mass/Vol] 33 mg/dL 5-40 [facility] [place] Work Phone: Serum or plasma creatinine m easurement (mass/volume)on 08-18-2021 Creatinine [Mass/Vol] 0.99 mg/dL 0.55-1.02 [facility] Work Phone: Comment on above: The validity of the calculated GFR & GFRAA in patients over 70 years has not been determined. Clinical correlation is essential. Serum or plasma low density lipoprotein (LDL) cholesterol measurement (mass/volume)on 08-18-2021 Cholesterol in LDL [Mass/Vol] 136 mg/dL 0-130 [facility] [place] Work Phone: Serum or plasma urea nitroge n measurement (mass/volume)on 08-18-2021 Urea nitrogen [Mass/Vol] 12 mg/dL 7-18 [facility] [place] Work Phone: Thin prep Papanicolaou smear with manual screeningon 08-18-2021 Thin prep Papanicolaou smear with manual screening 21 U/L 15-37 [facility] [place] Work Phone: Thin prep Papanicolaou smear with manual screening 7 5-15 [facility] [place] Work Phone: Thin prep Papanicolaou smear with manual screening Comment . [facility] [place] Work Phone: Comment on above: EBV Interpretation [...] EBV never develop antibodies to EBNA.Performed at: [facility] [employer] [id number] Director: Michael Arevalo PhD, Phone: [phone] Absolute lymphocyte counton 05-24-2021 Lymphocytes Auto (Unsp spec) [#/Vol] 3.35 10*3/uL 0.83-4.51 [facility] [place] Work Phone: Basophil percentageon 2021 Basophils/100 WBC (Bld) 0.3 % 0-1 [facility] Work Phone: Chloride [Moles/Vol] 110 mmol/L 98-107 [facility] Work Phone: Eosinophils/100 WBC (Bld) 2.6 % 0-5 [facility] [place] Work Phone: Glucose [Mass/Vol] 128 mg/dL 74-106 [facility] Work Phone: Comment on above: Fasting Glucose resu lt greater than or equal to 126 mg/dL suggests DIABETES MELLITUS per A.D.A. criteria. Neutrophils (Bld) [#/Vol] 7.4 10*3/uL 2.0-7.7 [facility] [place] Work Phone: Neutrophils/100 WBC (Bld) 63.1 % 47-70 [facility] [place] Work Phone: Potassium [Moles/Vol] 3.6 mmol/L 3.5-5.1 [facility] Work Phone: Sodium [Moles/Vol] 140 mmol/L 136-145 [facility] Work Phone: WBC (Bld) [#/Vol] 11.7 10*3/uL 4.4-11.0 [facility] Work Phone: Blood erythrocytes count (nu mber/volume)on 05-24-2021 RBC (Bld) [#/Vol] 5.05 10*6/uL 4.2-5.4 [facility] Work Phone: Blood hemoglobin measurement (mass/volume)on 05-24-2021 Hemoglobin (Bld) [Mass/Vol] 15.3 g/dL 12.0-15.0 [facility] [place] Work Phone: Blood lymphocytes/100 leukoc yteson 05-24-2021 Lymphocytes/100 WBC (Bld) 28.6 % 19-41 [facility] [place] Work Phone: Blood monocytes/100 leukocyt eson 05-24-2021 Monocytes/100 WBC (Bld) 4.8 % 0-10 [facility] Work Phone: Blood platelet mean volumeon 05-24-2021 Platelet mean volume (Bld) [Entitic vol] 9.3 fL 6.2-12.0 [facility] [place] Work Phone: Determination of erythrocyte mean corpuscular volume (MCV)on 05-24-2021 MCV (RBC) [Entitic vol] 89.7 fL 81-99 [facility] Work Phone: Hematocrit Auto (Bld) [Volum e fraction]on 05-24-2021 Hematocrit (Bld) [Volume fraction] 45.3 % 37-47 [facility] [place] Work Phone: Laboratory - Chemistry and C hemistry - challengeon 05-24-2021 CO2 [Moles/Vol] 25.0 mmol/L 21.0-32.0 [facility] [place] Work Phone: Urea nitrogen/Creatinine [Mass ratio] 7.4 mg/mg 10-20 [facility] [place] Work Phone: Laboratory - Hematology and Cell countson 05-24-2021 Erythrocyte distribution width (RBC) [Entitic vol] 45.1 fL 35.1-43.9 [facility] Work Phone: Erythrocyte distribution width (RBC) [Ratio] 13.9 % 11.6-14.6 [facility] [place] Work Phone: Immature granulocytes/100 WBC (Bld) 0.600 % 0.0-0.9 [facility] [place] Work Phone: Comment on above: IG% - Immature Granu locytes (promyelocytes, myelocytes and metamyelocytes) > 1% indicates that a LEFT SHIFT is Present. MCH (RBC) [Entitic mass] 30.3 pg 27.0-32.0 [facility] [place] Work Phone: Nucleated RBC/100 WBC (Bld) [Ratio] 0 % 0-5 [facility] [place] Work Phone: Laboratory - Microbiology an d Antimicrobial susceptibilityon 05-24-2021 SARS-CoV-2 (COVID-19) RNA SHAISTA+probe Ql (Unsp spec) Detected Not Detect [facility] [place] Work Phone: Comment on above: Normal Reference [...] 05-24-2021 MCHC (RBC) [Mass/Vol] 33.8 g/dL 32-36 [facility] Work Phone: No Panel Informationon 05-24 D-Dimer Quantitative (PE/DVT) < 0.27 FEU/ug/m 0.27-0.49 [facility] [place] Work Phone: Comment on above: NORMAL D-Dimer level (<0.50) indicates no DVT or PE. Estimated Creatinine Clearance Calc 58.83 ml/min [facility] [place] Work Phone: Estimated GFR (MDRD) Amer 83 mL/min >60 [facility] [place] Work Phone: Comment on above: GFR Calc Estimated GFR (MDRD) Non-Af Amer 69 mL/min >60 [facility] [place] Work Phone: Comment on above: Non- GFR Calc Platelets bldon 05-24-2021 Platelets (Bld) [#/Vol] 350 10*3/uL 150-450 [facility] [place] Work Phone: Serum or plasma calcium raven urement (mass/volume)on 05-24-2021 Calcium [Mass/Vol] 9.9 mg/dL 8.5-10.1 [facility] Work Phone: Serum or plasma creatinine m easurement (mass/volume)on 05-24-2021 Creatinine [Mass/Vol] 0.94 mg/dL 0.55-1.02 [facility] Work Phone: Comment on above: The validity of the calculated GFR & GFRAA in patients over 70 years has not been determined. Clinical correlation is essential. Serum or plasma urea nitroge n measurement (mass/volume)on 05-24-2021 Urea nitrogen [Mass/Vol] 7 mg/dL 7-18 [facility] [place] Work Phone: Thin prep Papanicolaou smear with manual screeningon 05-24-2021 Thin prep Papanicolaou smear with manual screening 5 5-15 [facility] [place] Work Phone: Tobacco Screening.on 021 Tobacco use status [facility] b) No [facility] Work Phone: Tobacco Screening.on 021 Tobacco use status [facility] b) No [facility] Work Phone: Microbiology: Culture, Deep Woundon 10-24-2016 GE use only - for [employer] import when terms are not otherwise specified . Invalid Interpretation Code [facility] Work Phone: [phone] Microbiology: Fungus Stainon 10-17-2016 fungus stain . Invalid Interpretation Code [facility] Work Phone: [phone] FUNST . [facility] Work Phone: [phone] Microbiology: (P) Culture, D eep Woundon 10-16-2016 [facility] Wound CultureNo grow th aerobically. [facility] Work Phone: [phone] Lab Report: Basic Metabolic Profile (BMP)on 10-14-2016 Anion gap 6 mmol/L Invalid Interpretation Code 5-15 [facility] Work Phone: [phone] Anion gap molar conc 6 mmol/L 5-[address] [facility] Work Phone: [phone] Calcium mass conc 9.3 mg/dL Invalid Interpretation Code 8.5-10.1 [facility] Work Phone: [phone] Chloride molar conc 107 mmol/L Invalid Interpretation Code 98-107 [facility] Work Phone: [phone] CO2 30.0 mmol/L Invalid Interpretation Code 21.0-32.0 [facility] Work Phone: [phone] CO2 ppres (BldV) 30.0 mmol/L 21.0-32.0 [facility] Work Phone: [phone] Creatinine 80.44 mL/min Invalid Interpretation Code [facility] Work Phone: [phone] Creatinine mass conc 0.75 mg/dL Invalid Interpretation Code 0.55-1.02 [facility] Work Phone: [phone] eGFR (non-black) 111 mL/min/{1.73_m2} Invalid Interpretation Code >60 [facility] Work Phone: [phone] EST GFR - AA 111 mL/min >60 [facility] Work Phone: [phone] GFR/1.73 sq M predicted among non-blacks MDRD vol rate/area (S/P/Bld) 91 mL/min/{1.73_m2} Invalid Interpretation Code >60 [facility] Work Phone: [phone] Glucose 105 mg/dL Invalid Interpretation Code 70-110 [facility] Work Phone: [phone] Glucose mass conc 105 mg/dL 70-110 [facility] Work Phone: [phone] Potassium molar conc 4.1 mmol/L Invalid Interpretation Code 3.5-5.1 [facility] Work Phone: [phone] Sodium molar conc 143 mmol/L Invalid Interpretation Code 136-145 [facility] Work Phone: [phone] Urea nitrogen mass conc 13 mg/dL Invalid Interpretation Code 7-18 [facility] Work Phone: [phone] Urea nitrogen/Creatinine mass ratio 17.2 RATIO Invalid Interpretation Code 10-20 [facility] Work Phone: [phone] Lab Report: CBC-Complete Blo od Cnt No Diffon 10-14-2016 Erythrocyte distribution width Ratio (RBC) 13.6 % 11.6-14.6 [facility] Work Phone: [phone] Erythrocyte distribution width Ratio (RBC) 45.1 fL High 35.1-43.9 [facility] Work Phone: [phone] Erythrocytes (RBC) 4.28 10*6/uL Invalid Interpretation Code 4.2-5.4 [facility] Work Phone: [phone] Hematocrit (HCT) 39.4 % Invalid Interpretation Code 37-47 [facility] Work Phone: [phone] Hematocrit Volume Fraction (Bld) 39.4 % 37-47 [facility] Work Phone: [phone] Hemoglobin mass conc (Bld) 13.2 g/dL Invalid Interpretation Code 12.0-15.0 [facility] Work Phone: [phone] MCH 30.8 pg Invalid Interpretation Code 27.0-32.0 [facility] Work Phone: [phone] MCH Entitic mass (RBC) 30.8 pg 27.0-32.0 [facility] Work Phone: [phone] MCHC 33.5 G/GL Invalid Interpretation Code 32-36 [facility] Work Phone: [phone] MCHC mass conc (RBC) 33.5 G/GL 32-[address] [facility] Work Phone: [phone] MCV 92.1 fL Invalid Interpretation Code 81-99 [facility] Work Phone: [phone] MCV Entitic volume (RBC) 92.1 fL 81-99 [facility] Work Phone: [phone] Platelet mean volume Entitic volume (Bld) 9.7 fL 6.2-12.0 [facility] Work Phone: [phone] Platelets 275 10*3/mm3 Invalid Interpretation Code 150-450 [facility] Work Phone: [phone] Platelets #/vol (Bld) 275 10*3/mm3 150-450 [facility] Work Phone: [phone] PMV by Jose G 9.7 fL Invalid Interpretation Code 6.2-12.0 [facility] Work Phone: [phone] RBC #/vol (Bld) 4.28 10*6/uL 4.2-5.4 [facility] Work Phone: [phone] RDW-CA 13.6 % Invalid Interpretation Code 11.6-14.6 [facility] Work Phone: [phone] red blood cell distribution width, size density 45.1 fL High 35.1-43.9 [facility] Work Phone: [phone] WBC #/vol (Bld) 11.7 10*3/uL High 4.4-11.0 [facility] Work Phone: [phone] WBC (Leukocytes) 11.7 10*3/uL High 4.4-11.0 [facility] Work Phone: [phone] Lab Report: Prealbuminon Prealbumin 28.0 mg/dL Invalid Interpretation Code 20.0-40.0 [facility] Work Phone: [phone] Prealbumin Elph mass conc 28.0 mg/dL 20.0-40.0 [facility] Work Phone: [phone] Microbiology: (P) Culture, D eep Woundon 10-14-2016 [facility] Cult, AnaerobicChecking for anaerobes, further studies to follow. [facility] Work Phone: [phone] Bacteria identified Cx Nom ( Wound) Wound Culture Staphylococcus aureus [facility] [place] Work Phone: Gram stain for investigation of transfusion reaction Microscopic observation Gram stain Nom (Unsp spec) [facility] [place] Work Phone: Vital Signs Date Time Vital Sign Value Performing Clinician Facility 08-14-2024 19:17-0400 Body height 160.02 cm Varsha Beth DIRECTOR [employer] Work Phone: [facility] [place] 06-05-2024 22:06-0400 Body height 160.02 cm Varsha Beth DIRECTOR [employer] Work Phone: [facility] [place] 12-06-2023 12:17-0400 Body mass index (BMI) [Ratio] 34.58 kg/m2 Joanie Franco MD Work Phone: [facility] 12-06-2023 12:17-0400 Body temperature 98.4 [degF] Joanie Franco MD Work Phone: [facility] 12-06-2023 12:17-0400 Body weight 83.01 kg Joanie Franco MD Work Phone: [facility] 12-06-2023 12:17-0400 Diastolic blood pressure 82 mm[Hg] Joanie Franco MD Work Phone: [facility] 12-06-2023 12:17-0400 Heart rate 71 /min Joanie Franco MD Work Phone: [facility] 12-06-2023 12:17-0400 SaO2% (BldA) [Mass fraction] 97 % Joanie Franco MD Work Phone: [facility] 12-06-2023 12:17-0400 Systolic blood pressure 124 mm[Hg] Joanie Franco MD Work Phone: [facility] 08-13-2023 11:19-0400 Body mass index (BMI) [Ratio] 35.9 kg/m2 Joanie Franco MD Work Phone: [facility] 08-13-2023 11:19-0400 Body temperature 98.29 [degF] Joanie Franco MD Work Phone: [facility] 08-13-2023 11:19-0400 Body weight 86.18 kg Joanie Franco MD Work Phone: [facility] 08-13-2023 11:19-0400 Diastolic blood pressure 84 mm[Hg] Joanie Franco MD Work Phone: [phone])[phone] [place] [address] 08-13-2023 11:19-0400 Heart rate 84 /min Joanie Franco MD Work Phone: [phone] [place] [address] 08-13-2023 11:19-0400 SaO2% (BldA) [Mass fraction] 98 % Joanie Franco MD Work Phone: [facility] 08-13-2023 11:19-0400 Systolic blood pressure 130 mm[Hg] Joanie Franco MD Work Phone: [facility] 05-14-2023 11:31-0500 Body mass index (BMI) [Ratio] 35.71 kg/m2 Joanie Franco MD Work Phone: [phone] [place] [address] 05-14-2023 11:31-0500 Body temperature 97.81 [degF] Joanie Franco MD Work Phone: [phone] [place] [address] 05-14-2023 11:31-0500 Body weight 85.73 kg Joanie Franco MD Work Phone: [phone] [place] [address] 05-14-2023 11:31-0500 Diastolic blood pressure 82 mm[Hg] Joanie Franco MD Work Phone: [phone])[phone] [place] [address] 05-14-2023 11:31-0500 Heart rate 78 /min Joanie Franco MD Work Phone: [facility] 05-14-2023 11:31-0500 SaO2% (BldA) [Mass fraction] 97 % Joanie Franco MD Work Phone: [facility] 05-14-2023 11:31-0500 Systolic blood pressure 124 mm[Hg] Joanie Franco MD Work Phone: [phone])[phone] [place] [address] 02-12-2023 11:28-0500 Body mass index (BMI) [Ratio] 35.14 kg/m2 Joanie Franco MD Work Phone: [phone])364-188869 [place] [address] 02-12-2023 11:28-0500 Body temperature 98.4 [degF] Joanie Franco MD Work Phone: [phone])[phone] [place] [address] 02-12-2023 11:28-0500 Body weight 84.37 kg Joanie Franco MD Work Phone: [phone])[phone] [place] [address] 02-12-2023 11:28-0500 Diastolic blood pressure 74 mm[Hg] Joanie Franco MD Work Phone: [phone])[phone] [place] [address] 02-12-2023 11:28-0500 Systolic blood pressure 122 mm[Hg] Joanie Franco MD Work Phone: [phone])395-254769 [place] [address] 02-09-2023 18:17-0500 Body height 160.02 cm [facility] 11-07-2022 12:17-0400 Body mass index (BMI) [Ratio] 32.88 kg/m2 Joanie Franco MD Work Phone: [phone])262-645004 [place] [address] 11-07-2022 12:17-0400 Body temperature 98.4 [degF] Joanie Franco MD Work Phone: [phone])[phone] [place] [address] 11-07-2022 12:17-0400 Body weight 78.93 kg Joanie Franco MD Work Phone: [phone] [place] [address] 11-07-2022 12:17-0400 Diastolic blood pressure 82 mm[Hg] Joanie Franco MD Work Phone: [facility] 11-07-2022 12:17-0400 Systolic blood pressure 126 mm[Hg] Joanie Franco MD Work Phone: [facility] 11-02-2022 19:34-0400 Body mass index (BMI) [Ratio] 30.6 kg/m2 [facility] [place] 11-02-2022 19:34-0400 Body weight 78.47 kg [facility] 07-27-2022 12:05-0400 Body mass index (BMI) [Ratio] 34.96 kg/m2 Joanie Franco MD Work Phone: [facility] 07-27-2022 12:05-040 Body temperature 97.5 [degF] Joanie Franco MD Work Phone: [facility] 07-27-2022 12:05-0400 Body weight 83.92 kg Joanie Franco MD Work Phone: [facility] 07-27-2022 12:05-0400 Diastolic blood pressure 84 mm[Hg] Joanie Franco MD Work Phone: [facility] 07-27-2022 12:05-0400 Systolic blood pressure 124 mm[Hg] Joanie Franco MD Work Phone: [facility] 07-25-2022 19:05-0400 Body height 160.02 cm [facility] 04-14-2022 18:53-0500 Body height 160.02 cm [facility] 04-07-2022 20:19-0500 Diastolic blood pressure 88 mm[Hg] [facility] [place] 04-07-2022 20:19-0500 Heart rate 74 /min [facility] 04-07-2022 20:19-0500 SaO2% (BldA) [Mass fraction] 97 % [facility] [place] 04-07-2022 20:19-0500 Systolic blood pressure 146 mm[Hg] [facility] 04-07-2022 18:46-0500 Body height 160.02 cm [facility] Work Phone: 04-07-2022 18:46-0500 Body mass index (BMI) [Ratio] 35.7 kg/m2 [facility] [place] 04-07-2022 18:46-0500 Body temperature 96.1 [degF] [facility] 04-07-2022 18:46-0500 Body weight 91.6 kg [facility] 04-07-2022 18:46-0500 Respiratory rate 28 /min [facility] 12-16-2021 16:57-0400 Body height 160.02 cm [facility] Work Phone: 11-25-2021 09:44-0400 Body mass [...] Phone: 10-31-2021 12:22-0400 Body height 160.02 cm [facility] Work Phone: 08-25-2021 10:51-0400 Body mass index (BMI) [Ratio] 35.9 kg/m2 Joanie Franco Work Phone: [facility] Work Phone: 08-25-2021 10:51-0400 Body surface area Derived from formula 1.85 m2 Joanie Franco Work Phone: [facility] Work Phone: 08-25-2021 10:51-0400 Body temperature 98.5 [degF] Joanie Franco Work Phone: [facility] Work Phone: 08-25-2021 10:51-0400 Body weight 86.18 kg Joanie Franco Work Phone: [facility] Work Phone: 08-25-2021 10:51-0400 Diastolic blood pressure 88 mm[Hg] Joanie Franco Work Phone: [facility] Work Phone: 08-25-2021 10:51-0400 Systolic blood pressure 128 mm[Hg] Joanie Franco Work Phone: [facility] Work Phone: 08-18-2021 19:21-0400 Body height 160.02 cm [facility] Work Phone: 05-24-2021 15:07-0500 Diastolic blood pressure 74 mm[Hg] [facility] Work Phone: 05-24-2021 15:07-0500 Heart rate 71 /min [facility] Work Phone: 05-24-2021 15:07-0500 Respiratory rate 16 /min [facility] Work Phone: 05-24-2021 15:07-0500 SaO2% (BldA) [Mass fraction] 97 % [facility] Work Phone: 05-24-2021 15:07-0500 Systolic blood pressure 138 mm[Hg] [facility] [facility] [place] Work Phone: 05-24-2021 13:17-0500 Body mass index (BMI) [Ratio] 35.9 kg/m2 [facility] [place] Work Phone: 05-24-2021 13:17-0500 Body temperature 97.2 [degF] [facility] Work Phone: 05-24-2021 13:17-0500 Body weight 86.18 kg [facility] Work Phone: 03-15-2021 16:02-0500 Body mass index (BMI) [Ratio] 36.85 kg/m2 Joanie Franco Work Phone: [facility] Work Phone: 03-15-2021 16:02-0500 Body surface area Derived from formula 1.87 m2 Joanie Franco Work Phone: [facility] Work Phone: 03-15-2021 16:02-0500 Body temperature 98.2 [degF] Joanie Franco Work Phone: [facility] Work Phone: 03-15-2021 16:02-0500 Body weight 88.45 kg Joanie Franco Work Phone: [facility] Work Phone: 03-15-2021 16:02-0500 Diastolic blood pressure 82 mm[Hg] Joanie Franco Work Phone: [facility] Work Phone: 03-15-2021 16:02-0500 Systolic blood pressure 124 mm[Hg] Joanie Nicert Work Phone: [facility] Work Phone: 09-17-2020 15:36-0400 Body mass index (BMI) [Ratio] 34.77 kg/m2 Joanie Nicert Work Phone: [facility] Work Phone: 09-17-2020 15:36-0400 Body surface area Derived from formula 1.82 m2 Joanie Franco Work Phone: [facility] Work Phone: 09-17-2020 15:36-0400 Body temperature 98.4 [degF] Joanie Nicert Work Phone: [facility] Work Phone: 09-17-2020 15:36-0400 Body weight 83.46 kg Joanie Franco Work Phone: [facility] Work Phone: 09-17-2020 15:36-0400 Diastolic blood pressure 78 mm[Hg] Joanie Franco Work Phone: [facility] Work Phone: 09-17-2020 15:36-0400 Systolic blood pressure 124 mm[Hg] Joanie Nicert Work Phone: [facility] Work Phone: 03-05-2020 12:33-0500 BMI (Body Mass Index) 34.68 kg/m2 LeathaDeann Nicert [facility] Work Phone: 03-05-2020 12:33-0500 Body [...] (Body Surface Area) 1.83 m2 Joanie Franco [facility] Work Phone: 10-14-2016 07:140400 Body surface area Derived from formula 80.44 mL/min Efrem Corrigan MD [facility] Work Phone: Encounters Encounter Date Encounter Type Care Provider Facility Start: 08-14-2024 End: 08-14-2024 ambulatory Varsha Beth DIRECTOR [employer] Work Phone: [facility] [place] Work Phone: Start: 08-14-2024 End: 08-14-2024 Patient encounter procedure Varsha Beth [employer] -Laboratory Specimen Work Phone: Start: 08-14-2024 End: 08-14-2024 ambulatory Varsha Beth DIRECTOR MARKETING COMMUNICATIONS Facility:[facility] [place] Start: 06-30-2024 End: 06-30-2024 ambulatory NAILA FRANCO Facility:[id number] Start: 06-18-2024 End: 06-18-2024 [facility] Start: 06-05-2024 End: 06-05-2024 ambulatory Varsha Beth DIRECTOR [employer] Work Phone: [facility] [place] Work Phone: Start: 06-05-2024 End: 06-05-2024 Patient encounter procedure Varsha Beth [employer] -Laboratory, Specimen Work Phone: Start: 06-05-2024 End: 06-05-2024 ambulatory Varsha Beth DIRECTOR MARKETING COMMUNICATIONS Facility:[facility] [place] Start: 05-29-2024 End: 05-29-2024 ambulatory BENJI MILAN MD Facility:[facility] Start: 05-23-2024 ambulatory NAILA Farmer y:[facility] Start: 05-19-2024 End: 05-19-2024 ambulatory BENJI MILAN MD Facility:[id number] Start: 05-08-2024 End: 05-08-2024 ambulatory BENJI MILAN MD Facility:[id number] Start: 04-10-2024 End: 04-10-2024 ambulatory BENJI MILAN MD Facility:[facility] Start: 03-06-2024 End: 03-06-2024 Patient encounter procedure Varsha Beth [employer] -Laboratory, Specimen Work Phone: Start: 03-06-2024 End: 03-06-2024 ambulatory Varsha Beth NP Facility:[facility] [place] Start: 02-26-2024 End: 02-26-2024 ambulatory BENJI MILAN MD Facility:[facility] Start: 02-26-2024 End: 02-26-2024 ambulatory BENJI MILAN MD Facility:[id number] Start: 12-06-2023 End: 12-06-2023 Patient encounter status Joanie Franco MD Work Phone: [facility] Work Phone: Start: 12-06-2023 End: 12-06-2023 Periodic preventive med est patient 40-64yrs Joanie Franco MD Work Phone: [facility] Comment on above: Health maintenance e xamination (Primary Dx); Mixed hyperlipidemia; Attention deficit hyperactivity disorder (ADHD), predominantly inattentive type; Depression, unspecified depression type; Recurrent cold sores; Insomnia, unspecified type; Anxiety disorder, unspecified type; Thyroid disease; Encounter for Papanicolaou smear for cervical cancer screening Start: 12-06-2023 End: 12-07-2023 ambulatory [facility] Ambulatory Start: 10-12-2023 End: 10-12-2023 ambulatory Varsha Beth NP Facility:[facility] [place] Start: 08-22-2023 End: 08-22-2023 ambulatory No Primary Care Physician Facility:[facility] [place] Start: 08-13-2023 End: 08-13-2023 Office outpatient visit 25 minutes Joanie Franco MD Work Phone: [facility] Comment on above: Mixed hyperlipidemia (Primary Dx); Medication management contract agreement; Medication management; Depression, unspecified depression type; Anxiety disorder, unspecified type; Attention deficit hyperactivity disorder (ADHD), predominantly inattentive type; Recurrent cold sores; Breast cancer screening by mammogram; Insomnia, unspecified type Start: 08-13-2023 End: 08-13-2023 ambulatory [facility] Ambulatory Start: 05-18-2023 End: 05-18-2023 ambulatory [facility] [place] Work Phone: Start: 05-18-2023 End: 05-18-2023 Patient encounter procedure [facility] [place]-Laboratory, Specimen Work Phone: Start: 05-14-2023 End: 05-14-2023 Office outpatient visit 25 minutes Joanie Franco MD Work Phone: [facility] Comment on above: Mixed hyperlipidemia (Primary Dx); Depression, unspecified depression type; Attention deficit hyperactivity disorder (ADHD), predominantly inattentive type; Medication management contract agreement; Medication management; Recurrent cold sores; Anxiety disorder, unspecified type Start: 05-14-2023 End: 05-14-2023 ambulatory [facility] Ambulatory Start: 02-12-2023 End: 02-12-2023 Office outpatient visit 25 minutes Joanie Franco MD Work Phone: [facility] Comment on above: Mixed hyperlipidemia (Primary Dx); Depression, unspecified depression type; Anxiety disorder, unspecified type; Attention deficit hyperactivity disorder (ADHD), predominantly inattentive type; Thyroid disease Start: 02-09-2023 End: 02-09-2023 ambulatory [facility] [place] Work Phone: Start: 02-09-2023 End: 02-09-2023 Patient encounter procedure [facility] [place]-Laboratory, Specimen Work Phone: Start: 11-07-2022 End: 11-07-2022 Office outpatient visit 15 minutes Joanie Franco MD Work Phone: [facility] Comment on above: Mixed hyperlipidemia (Primary Dx); Depression, unspecified depression type; Recurrent cold sores; Anxiety disorder, unspecified type; Thyroid disease Start: 11-02-2022 End: 11-02-2022 Patient encounter procedure [facility] [place]-Laboratory, Specimen Work Phone: Start: 07-27-2022 End: 07-27-2022 Office outpatient visit 15 minutes Joanie Franco MD Work Phone: [facility] Comment on above: Attention deficit hy peractivity disorder (ADHD), predominantly inattentive type (Primary Dx); Depression, unspecified depression type; Anxiety disorder, unspecified type; Mixed hyperlipidemia; Recurrent cold sores Start: 07-25-2022 End: 07-25-2022 ambulatory [facility] [place] Work Phone: Start: 07-25-2022 End: 07-25-2022 Patient encounter procedure [facility] [place]-Laboratory, Specimen Start: 05-02-2022 AUDIT Joanie Nice rt Work Phone: [facility] Work Phone: Start: 04-17-2022 Chart Update Joanie ferrer Work Phone: [facility] Work Phone: Start: 04-14-2022 End: 04-14-2022 ambulatory [facility] [place] Work Phone: Start: 04-14-2022 End: 04-14-2022 Patient encounter procedure [facility] [place]-Laboratory, Specimen Start: 04-11-2022 Office outpatient vi sit 25 minutes Joanie Franco Work Phone: [facility] Work Phone: Start: 04-11-2022 Patient encounter procedure Joanie Franco Work Phone: [facility] Work Phone: Start: 04-11-[address] Joanie Franco Fa cility:[id number] Start: 04-07-2022 End: 04-07-2022 Emergency department patient visit [facility] [place]-Emergency Department Start: 03-24-2022 AUDIT Joanie ferrer Work Phone: [facility] Work Phone: Start: 03-22-2022 AUDIT Joanie Nice rt Work Phone: [facility] Work Phone: Start: 02-22-2022 AUDIT Joanie Nice rt Work Phone: [facility] Work Phone: Start: 01-23-2022 AUDIT Joanie Nice rt Work Phone: [facility] Work Phone: Start: 12-29-2021 AUDIT Joanie Nice rt Work Phone: [facility] Work Phone: Start: 12-23-2021 AUDIT Joanie Nice rt Work Phone: [facility] Work Phone: Start: 12-16-2021 End: 12-16-2021 ambulatory [facility] [place] Work Phone: Start: 12-16-2021 End: 12-16-2021 Patient encounter procedure [facility] [place]-Laboratory, Specimen Start: 11-25-2021 Office outpatient vi sit 25 minutes Joanie Franco Work Phone: [facility] Work Phone: Start: 11-25-[address] Joanie Franco Fa cility:[id number] Start: 11-18-2021 AUDIT Joanie Nice rt Work Phone: [facility] Work Phone: Start: 11-10-2021 AUDIT Joanie Nice rt Work Phone: [facility] Work Phone: Start: 11-01-2021 End: 11-01-2021 Patient encounter procedure [facility] [place]-Laboratory, Specimen Start: 10-20-2021 AUDIT Joanie Nice rt [...] sit 25 minutes Joanie Franco Work Phone: [facility] Work Phone: Start: 08-18-2021 End: 08-18-2021 Patient encounter procedure [facility] [place]-Laboratory, Specimen Start: 08-18-2021 AUDIT Joanie Zacarias Stua rt Work Phone: [facility] Work Phone: Start: 08-02-2021 AUDIT Joanie Zacarias Stua rt Work Phone: [facility] Work Phone: Start: 07-02-2021 AUDIT Joanie Zacarias Stua rt Work Phone: [facility] Work Phone: Start: 05-24-2021 End: 05-24-2021 Emergency department patient visit [facility] [place]-Emergency Department Start: 05-18-2021 AUDIT Joanie Zacarias Stua [...] 10-27-2020 AUDIT Leatha Stua rt Work Phone: [facility] Work Phone: Start: 09-17-2020 Office outpatient vi sit 15 minutes Leatha Salvador Work Phone: [facility] Work Phone: Start: 09-17-2020 Patient encounter procedure Leatha Salvador Work Phone: [facility] Work Phone: Start: 08-30-2020 AUDIT Leatha Stua rt Work Phone: [facility] Work Phone: Start: 08-17-2020 AUDIT Leatha Stua rt Work Phone: [facility] Work Phone: Start: 03-05-2020 Patient encounter procedure Leatha Salvador [facility] Work Phone: Start: 12-05-2019 Patient encounter procedure Leatha Salvador [facility] Work Phone: Start: 09-05-2019 Patient encounter procedure Leatha Salvador [facility] Work Phone: Start: 05-22-2019 Patient encounter procedure Joanie Franco [facility] Work Phone: Start: 12-31-2018 Patient encounter procedure Joanie Franco [facility] Work Phone: Start: 12-05-2018 Patient encounter procedure Joanie Franco [facility] Work Phone: Start: 08-20-2018 Patient encounter procedure Joanie Franco [facility] Work Phone: Start: 05-28-2018 Patient encounter procedure Joanie Franco [facility] Work Phone: Start: 04-28-2018 Patient encounter procedure Joanie Franco [facility] Work Phone: Start: 02-26-2018 Patient encounter procedure Joanie Franco [facility] Work Phone: Start: 09-04-2017 Patient encounter procedure Joanie Franco [facility] Work Phone: Patient encounter status Joanie Franco Work Phone: [facility] Work Phone: Comment on above: 02/18/2008; Procedures Date Procedure Procedure Detail Performing Clinician Start: 08-14-2024 Follicle stimulating hormone measurement Varsha Beth DIRECTOR MARKET[employer]S-[employer] Work Phone: Comment on above: FEMALE:Follicular: 1 .4 - 18.1 mIU/mLMidcycle: 3.4 - 33.4 mIU/mLLuteal: 1.5 - 9.1 mIU/mLPost Menopause: 23.0 - 116.3 mIU/mLMALE: 1.4 - 18.1 mIU/mL Start: 08-14-2024 Luteinizing hormone measurement Varsha Beht DIRECTOR [employer] Work Phone: Comment on above: FEMALE:Follicular: 1 [...] - 214.0 Postmenopausal 0.0 - 0.1Performed at: [facility] [id number] Director: Michael Arevalo PhD, Phone: [phone] Start: 08-13-2023 DRUG SCREEN, URINE W ITH [...] f 2) Zoster Vaccines (1 of 2) [facility] Start: 03-07-2024 End: 03-07-2024 Patient encounter procedure 03/07/2024 11:30 AM EST Office Visit [facility] [address] [facility] [address] [place] [address] Joanie Franco MD [address] [facility] [place] [address] [place], [place] [phone] [facility] Start: 12-10-2023 End: 12-10-2023 Patient encounter procedure 12/10/2023 11:15 AM EDT Office Visit [facility] [address] [place] [address] Joanie Franco MD [address] [facility] [place] [place], [place] [id number] [facility] Start: 11-25-2023 COVID-19 Vaccine ( season) COVID-19 Vaccine ( season) [facility] Start: 11-25-2023 Influenza vaccination Influenza Vacc ine (#1) [facility] Start: 08-13-2023 End: 10-12-2024 DBT Breast - bilateral BI mammo bilateral screening tomosynthesis Imaging Routine Breast cancer screening by mammogram Expected: 08/13/2023, Expires: 10/12/[address] [facility] Service Area Work Phone: Comment on above: Expected: 08/13/2023 , Expires: 10/12/2024 Start: 08-13-2023 End: 08-13-2023 Patient encounter procedure 08/13/2023 11:00 AM EDT Office Visit [facility] [address] [place] [address] Joanie Franco MD [address] [facility] [place] [address] [place], [place] [phone] [facility] Start: 06-08-2023 Screening for malignant neoplasm of cervix [facility] Start: 05-14-2023 End: 02-19-2024 Patient encounter procedure 05/14/2023 10:45 AM EST Office Visit [facility] [address] [facility] [address] [place] [phone] Joanie Franco MD [address] [facility] [place] [place] [address] [facility] Start: 02-12-2023 End: 02-12-2023 Patient encounter procedure 02/12/2023 11:00 AM EST Office Visit [facility] [address] [facility] [address] [place] [phone] Joanie Franco MD [address] [facility] [place] [place] [address] [facility] Start: 11-24-2022 COVID-19 Vaccine ( season) COVID-19 Vaccine ( season) [facility] Start: 11-24-2022 Influenza vaccination [facility] Start: 11-07-2022 End: 11-07-2022 Patient encounter procedure 11/07/2022 11:30 AM EDT Office Visit [facility] [address] [facility] [address] [place] [phone] Joanie Franco MD [address] [facility] [place] [place] [address] [facility] Start: 04-11-2022 FUV, Provider: Joanie Franco, Status: Pen, Time: 10:30 AM FUV, Provider: Joanie Franco, Status: Pen, Time: 10:30 AM [facility] Work Phone: Start: 04-07-2022 Suicide precautions [facility] Start: 11-25-2021 FUV, Provider: Joanie Franco, Status: Pen, Time: 9:30 AM FUV, Provider: Joanie Franco, Status: Pen, Time: 9:30 AM [facility] Work Phone: Start: 08-25-2021 FUV, Provider: Joanie Franco, Status: Pen, Time: 10:30 AM FUV, Provider: Joanie Franco, Status: Pen, Time: 10:30 AM [facility] Work Phone: Start: 03-15-2021 FUV, Provider: Joanei Franco, Status: Pen, Time: 3:15 PM FUV, [...] Vaccine (3 - Booster for Pfizer series) [facility] Start: 08-24-2020 COVID-19 Vaccine (3 - Pfizer series) COVID-19 Vaccine (3 - Pfizer series) [facility] Start: 2018 Screening for malignant neoplasm of breast Mammogram [facility] Start: 11-18-2012 Hepatitis B Vaccines (3 of 3 - 19+ 3-dose series) Hepatitis B Vaccines (3 of 3 - 19+ 3-dose series) [facility] Start: 09-25-2012 Hepatitis B Vaccines (3 of 3 - 19+ 3-dose series) Hepatitis B Vaccines (3 of 3 - 19+ 3-dose series) [facility] Start: 2000 DTaP/Tdap/Td Vaccine s (1 - Tdap) DTaP/Tdap/Td Vaccines (1 - Tdap) [facility] Start: 08-30-1999 Screening for malignant neoplasm of cervix [facility] Start: 1996 Hepatitis C screening Hepatitis C [facility] Start: 08-30-1979 MMR Vaccines (1 of 1 - Standard series) MMR Vaccines (1 of 1 - Standard series) [facility] Start: 1978 HIV screening HIV Screening [facility] Start: 1978 Lipid panel Lipid Panel [facility] Start: 1978 Screening for malignant neoplasm of colon [facility] Start: 1978 Thyroid stimulating hormone measurement TSH Level [facility] Start: 1978 Yearly Adult Physical Yearly Adult P hysical [facility] Cytology Cervical or vaginal smear or scraping study THINPREP PAP TEST Pathology and Cytology Routine Encounter for Papanicolaou smear for cervical cancer screening 12/06/2023 12:[address] [facility] Service Area Work Phone: Drugs of abuse scree n W Reflex confirm panel - Urine Drug Screen, Urine With Reflex to Confirmation Lab Routine Medication management contract agreement Medication management 08/13/2023 11:13 AM EDT [facility] Work Phone: Patient Education [facility] Work Phone: Patient referral [facility] Work Phone: Serum progesterone measurement [facility] Work Phone: [facility] NEGATED: Highlighted row has been ruled out! Planned Goals not documented [facility] Work [facility]: Immunizations Immunization Date Immunization Notes Care Provider Agnes warren 05-07-2023 influenza virus vaccine, unspecified formulation Joanie Franco MD Work Phone: [facility] Work Phone: 06-29-2020 Pfizer-BioNTech COVID-19 Vacc 30 MCG/0.3ML Intramuscular Suspension Joanie Franco Work Phone: [facility] [place] 06-08-2020 Pfizer-BioNTech COVID-19 Vacc 30 MCG/0.3ML Intramuscular Suspension Joanie Franco Work Phone: [facility] [place] 06-11-2017 hepatitis B vaccine, adult dosage [facility] [place] 06-11-2017 measles, mumps and rubella virus vaccine [facility] [place] 05-07-2017 hepatitis B vaccine, adult dosage [facility] [place] 05-07-2017 measles, mumps and rubella virus vaccine [facility] [place] 04-19-2017 influenza, injectabl e, quadrivalent, preservative free [facility] [place] 04-19-2017 influenza, seasonal, injectable [facility] [place] 04-19-2017 tetanus toxoid, redu alan diphtheria toxoid, and acellular pertussis vaccine, adsorbed [facility] [place] 06-18-2012 hepatitis B vaccine, adult dosage; Translations: [Hepatitis B] Joanie Franco [facility] Work Phone: Comment on above: Series: 04-25-2012 hepatitis B vaccine, pediatric or pediatric/adolescent dosage Joanie Franco MD Work Phone: [facility] Work Phone: 04-25-2012 hepatitis B vaccine, adult dosage; Translations: [Hep B (Recombivax)] Joanie Franco [facility] Work Phone: Comment on above: Series: 03-28-2012 hepatitis B vaccine, adult dosage; Translations: [Hepatitis B] Joanie Franco [facility] Work Phone: Comment on above: Series: Payers Date Payer Category Payer Self-pay [id number] 2021 Unknown 2021 Unknown [id number] 2017 Unknown [id number] 1978 Unknown [id number] 2.16. [id number] 1978 Unknown [id number] 2.16. [id number] 1978 Unknown [id number] 2.16. [id number] 1978 Unknown [id number] 2.16.8 [id number] 1978 Unknown [id number] 2.16.8 [id number] 1978 Unknown [id number] 2.16.8 40.1.183806.3.579.2.1244 1978 Unknown [id number] 2.16.8 40.1.402568.3.579.2.159 1978 Unknown [id number] 2.16.8 40.1.170273.3.579.2.159 1978 Unknown [id number] 2.16.8 40.1.630428.3.579.2.159 1978 Unknown [id number] 2.16.8 40.1.526067.3.579.2.159 1978 Unknown [id number] 2.16.8 40.1.029654.3.579.2.159 1978 Unknown [id number] 2.16.8 40.1.818118.3.579.2.159 1978 Unknown [id number] 2.16.8 40.1.036325.3.579.2.159 1978 Unknown [id number] 2.16.8 40.1.379992.3.579.2.159 1978 Unknown [id number] 2.16.8 40.1.791339.3.579.2.159 1978 Unknown [id number] 2.16.8 [id number] Unknown [id number] Unknown [id number] 2.16.8 [id number] Unknown [id number] 2.16.8 [id number] Unknown [id number] 2.16.8 [id number] Unknown [id number] 2.16.8 [id number] Unknown [id number] 2.16.8 [id number] Unknown [id number] 2.16.8 [id number] Social History Date Type Detail Facility Start: 07-27-2022 End: 12-06-2023 Marital History - Currently Marital History - Currently [facility] Work Phone: Start: 05-24-2021 End: 04-07-2022 Tobacco smoking status NHIS Unknown if ever smoked [facility] Start: 1980 Sex Assigned At Female [facility] Start: 07-27-2022 Tobacco smoking status NHIS Never smoked tobacco [facility] Work Phone: Start: 07-27-2022 Tobacco use and exposure Smokeless tobacco non-user [facility] Work Phone: Start: 07-27-2022 End: 12-06-2023 Alcohol intake Lifetime non-drinker (finding) [facility] Work Phone: Start: 07-27-2022 End: 12-06-2023 Tobacco use panel [facility] Work Phone: Start: 07-17-2022 End: 12-06-2023 Exposure to SARS-CoV-2 (event) Not sure [facility] Start: 10-12-2016 Rare [facility] Start: 10-12-2016 None [facility] Start: 10-12-2016 Spouse/ Signif icant Other [facility] Start: 03-26-2017 Cigarettes [facility] Start: 03-05-2024 Tobacco smoking status NHIS Smokes tobacco daily (finding) [facility] Start: 06-17-2024 Sex Female (finding) [facility] NEGATED: Highlighted row - - [facility] Work Phone: NEGATED: Highlighted row [facility] NEGATED: Highlighted rowStart: NINF History of tobacco use Passive smoker [facility] Work Phone: Functional Status Date Assessment Result Facility NEGATED: Highlighted row Functional performance Functional status health issues are not documented Disease [facility] Work Phone: Mental Status Date Assessment Result Facility 05-24-2021 Cognitive function Level Of Cons ciousness Awake;Alert;Appropriate ;Follows Commands [facility] Work Phone: NEGATED: Highlighted row Cognitive function [Interpretation] Cognitive status health issues are not documented Disease [facility] Work Phone: Clinical Notes 09-17-2020 [...] 7:02pm Menopausal hot flushes acute 2024 7:02pm [facility] Work Phone: 1(796) 460-319202-13-2025 NotePAA Education Entered On: 05/08/2024 12:55 EST Performed On: 05/08/2024 12:55 EST by Genoveva Rodas RN General / Required Barriers to Learning : None evident TeachBack Methodology : TeachBack, Explanation, Printed Material Genoveva Rodas RN - 05/08/2024 12:55 EST Education Nursing General Required GRID Pain Management : Verbalizes understanding Speakup : Verbalizes understanding Genoveva Rodas RN 05/08/2024 12:55 EST Topic Specific Education Health Maintenance GRID Bathing/Hygiene : Verbalizes understanding Genoveva Rodas RN - 05/08/2024 12:55 EST Education Medication Management GRID Pain Can Be Managed,Relieved : Verbalizes understanding [facility] 05/08/2024 12:55 EST Infection Control Education Dialysis CHG Cloth Instructions : Verbalizes understanding (Comment: CHG instruction sheet and clothes given to the patient [Lyubov Rodas RNa - 05/08/2024 14:45 EST] ) Genoveva Rodas RN - 05/08/2024 14:45 EST Surgery - Hospital form # [id number] : Verbalizes understanding Pre Procedure / Surgery Education Procedures Tests Exams GRID Preoperative Instructions : Verbalizes understanding Preprocedure Tests/Labs : Verbalizes understanding Preprocedure Diet : Verbalizes understanding Genoveva Rodas RN [facility]24 [facility] NotePatient: BIN BILL Age: 43 years [...] with 2 children. 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 Health Status Include (Selected) [...] swelling, No deformity,Normal gait. Integumentary: Warm, Dry, [place]. Neurologic: Alert, Oriented, Normal sensory, Normal motor function. Cognition and Speech: Oriented, Speech clear and coherent. Psychiatric: Cooperative, Appropriate mood & affect. Impression and Plan Diagnosis 1. Preprocedural exam Z01.818 2. Menorrhagia N92.0 3. Asthma J45.90-managed with Trelegy as (more content not included)...[facility]12-12-2024 Evaluation note* Diagnosis Onset Date Resolution Status [...] Insulin resistance acute June 05, 2024 7:50pm [facility] Work Phone: [phone]) 688-898609-12-2024 History of Present illness Narrative* Joanie Franco [...] PAP TEST Joanie Franco MD [facility]: 1([phone]) 601-413705-20-2024 History of Present illness Narrative* Joanie Franco [...] at bedtime. Joanie Franco MD [facility] documented in this [facility] Work Phone: 1(335) 404-980502-19-2024 History of Present illness Narrative* Joanie Franco [...] 3 mos Joanie Franco MD [facility]: [phone]) 321-582511-20-2023 History of Present illness Narrative* Joanie Franco [...] Thyroid disease Joanie Franco MD [facility] documented in this [facility] Work Phone: [phone]) 104-206208-15-2023 History of Present illness Narrative* Joanie Franco [...] Thyroid disease Joanie Franco MD [facility] documented in this [facility] Work Phone: [phone] 210-474905-04-2023 History of Present illness Narrative* Joanie Franco [...] inattentive type Joanie Franco MD [facility] documented in this [facility] Work Phone: [phone] History of Present illness Narrative* EP. Here for follow up on ADHD and medication. * Bin is a 41 year old female presenting today for a follow up of her ADHD and medication refills. * -Valentine was seen * -Reports having to call 911 and being brought to the [facility] on 04/07. This was due to severe [...] * -Still having a little brain fog. -[facility] Work Phone: [phone]) [phone] History of Present illness Narrative* EP. Here for follow up on ADHD and medication. * Bin is a 41 year old female presenting today for a follow up of her ADHD and medication refills. * -Patient was seen on 04/07/22 at [facility] * -Reports having to call 911 and being brought to [facility] on 04/07. This was due to severe [...] brain fog. * -Denies any drug use [facility] Work Phone: 1([phone]) 187-225111-03-2021 History of Present illness Narrative* FUV. Needs medication refills sent to [facility]. * States she feels Adderall is not working very well for her. * Reports losing focus at work. * She is currently taking 2 capsules of Adderall in the morning. * States her mood has been good. * She is doing well on Wellbutrin and Venlafaxine. [facility] Work Phone: [phone]) 451-996806-25-2021 History of Present illness Narrative* FUV. Needs medication refills sent to [facility]. * States she is doing well. * States she feels Adderall is not working very well for her. * Reports losing focus at work. * She is currently taking 2 capsules of Adderall in the morning. * States her mood has been good. * She is doing well on Wellbutrin and Venlafaxine. [facility] Work Phone: Evaluation note* Diagnosis Onset Date Resolution Status Fatigue acute High cholesterol acute Hypothyroid acute Insomnia acute Seasonal allergies acute [facility] Work Phone: Evaluation note* Diagnosis Onset Date Resolution Status Fatigue acute High cholesterol acute Hypothyroid acute Insomnia acute Seasonal allergies acute Bug bite with infection acut e [facility] Work Phone: Evaluation note* Diagnosis Onset Date Resolution Status Bug bite with infection acut e ADD (attention deficit disorder) acute Depression acute Fatigue acute High cholesterol acute Hypothyroid acute [facility] Work Phone: Evaluation note* Diagnosis Onset Date Resolution Status ADD (attention deficit disorder) acute Depression acute Fatigue acute High cholesterol acute Hypothyroid acute [facility] Work Phone: Evaluation note* Diagnosis Onset Date Resolution Status Hypothyroid acute Leukocytosis acute [facility] Work Phone: Evaluation note* Diagnosis Attention deficit hyperactivity disorder (ADHD), predominantly inattentive type- Primary Depression, unspecified depression type Anxiety disorder, unspecified type Mixed hyperlipidemia Recurrent cold sores Herpes simplex without mention of complication documented in this encounter [facility] Work Phone: Evaluation note* Diagnosis Onset Date Resolution Status Hypothyroid acute Leukocytosis acute ADD (attention deficit disorder) acute High cholesterol acute Hypothyroid acute [facility] Work Phone: Evaluation note* Diagnosis Mixed hyperlipidemia- Primary Depression, unspecified depression type Recurrent cold sores Herpes simplex without mention of complication Anxiety disorder, unspecified type Thyroid disease Unspecified disorder of thyroid documented in this encounter [facility] Work Phone: Evaluation note* Diagnosis Mixed hyperlipidemia- Primary Depression, unspecified depression type Anxiety disorder, unspecified type Attention deficit hyperactivity disorder (ADHD), predominantly inattentive type Thyroid disease Unspecified disorder of thyroid documented in this encounter [facility] Work Phone: evaluation note* Diagnosis Onset Date Resolution Status High cholesterol acute Hypothyroid acute Weight loss acute ADD (attention deficit disorder) acute Depression acute Fatigue acute Hypothyroid acute Vitamin D deficiency acute [facility] Work Phone: Evaluation note* Diagnosis Mixed hyperlipidemia- Primary Depression, unspecified depression type Attention deficit hyperactivity disorder (ADHD), predominantly inattentive type Medication management contract agreement Medication management Recurrent cold sores Herpes simplex without mention of complication Anxiety disorder, unspecified type documented in this encounter [facility] Work Phone: evaluation note* Diagnosis Onset Date Resolution Status ADD (attention deficit disorder) acute Depression acute Fatigue acute Hypothyroid acute Vitamin D deficiency acute ADD (attention deficit disorder) acute High cholesterol acute Hypothyroid acute Vitamin D deficiency acute [facility] Work Phone: Evaluation note* Diagnosis Mixed hyperlipidemia- Primary Medication management contract agreement Medication management Depression, unspecified depression type Anxiety disorder, unspecified type Attention deficit hyperactivity disorder (ADHD), predominantly inattentive type Recurrent cold sores Herpes simplex without mention of complication Breast cancer screening by mammogram Insomnia, unspecified type documented in this encounter [facility] Work Phone: Evaluation note* Diagnosis Health maintenance examination- Primary Unspecified general medical examination Mixed hyperlipidemia Attention deficit hyperactivity disorder (ADHD), predominantly inattentive type Depression, unspecified depression type Recurrent cold sores Herpes simplex without mention of complication Insomnia, unspecified type Anxiety disorder, unspecified type Thyroid disease Unspecified disorder of thyroid Encounter for Papanicolaou smear for cervical cancer screening documented in this encounter [facility] Work Phone: History of Present illness [...] to take Trazodone - 2 at bedtime. [facility] Work Phone: History of Present [...] * -Does not eat much red meat. [facility] Work Phone: History of Present illness Narrative* EP. Here for follow up on ADD and medication. * Pt is doing well * only complaint today is rash on foot, reports great toenail fungus on the one foot as well * did not get bw done yet but intends to * med list reviewed [facility] Work Phone: Hospital Discharge instructions Additional Instructions Go home and get plenty of rest. Drink plenty of oral fluids. Follow-up with your primary care physician on Sunday.[facility] Work Phone: Reason for referral (narrative)No reason for referral information availableWFostoria City [facility] Work Phone: Family History No Family [...] No May 24, 2021 3:21pm Power of Machine Engineer No May 24 3:21pm Advance Directive Response Recorded Date/ Time Living Will No April 07 7:46pm Power of Machine Engineer No April 07, 2022 7:46pm Advance Directive Response Recorded Date/ Time Living Will No April 07 8:46pm Power of Machine Engineer No April 07, 2022 8:46pm Summary Purpose Reason for Referral Specialty Diagnoses / Procedures Referred By Contac t Referred To Contact Radiology Diagnoses Breast cancer screening by mammogram Procedures BI mammo bilateral screening tomosynthesis Joanie Franco MD [address] [facility], [place] [address] Referral ID Status Reason Start Date Expiration Date Visits Requested Visits Authorized [id number] Authorized Perform Procedure 08/13/2023 08/12/2024 1 1 [...] DATE CREATED AUTHOR AUTHOR'S ORGANIZ ATION 05/19/2022 [facility] DATE CREATED AUTHOR AUTHOR'S ORGANIZ ATION 04/04/2024 [facility] DATE CREATED AUTHOR AUTHOR'S ORGANIZ ATION 07/01/2024 [facility] DATE CREATED AUTHOR AUTHOR'S ORGANIZ ATION 08/21/2024 [facility] Care Teams (unrecognized sec tion and content) Team Status: Active Member Role Status Dates No Primary Care Physician Family Provider Active Dr. Joanie Franco MD Primary Care Provider Active Team Status: Inactive Member Role Status Dates Dr. Joanie Franco MD Primary Care Provider, Refer ring Provider Active Varsha Beth DIRECTOR MARKETING COMMUNICATIONS, DIRECTOR MARKETING COMMUNICATIONS-C Attending Provider Active Team Status: Inactive Member Role Status Dates Dr. Joanie Franco MD Primary Care Provider Active Erwin López MD Attending Provider, Emergency Provid er Active Team Status: Inactive Member Role Status Dates Dr. 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 [place] [address] PCP - General 05/19/10 Joanie Franco MD [facility] [address] 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 [address] [place] [address] PCP - General 05/19/10 Joanie Franco MD [facility] [address] 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 [address] [place] [address] PCP - General 05/19/10 Joanie Franco MD [address] [facility] [place] [address] PCP - [facility] PCP 04/26/21 Team Status: Active Member Role Status Dates No Primary Care Physician Family Provider Active No Primary Care Physician Primary Care Provider Active Team Status: Inactive Member Role Status Dates Varsha Beth DIRECTOR MARKETING COMMUNICATIONS, DIRECTOR MARKETING COMMUNICATIONS-C Attending Provider, Referring Provider Active Team Status: Inactive Member Role Status Dates Varsha Beth DIRECTOR MARKETING COMMUNICATIONS, DIRECTOR MARKETING COMMUNICATIONS-C Attending Provider, Referring Provider Active No Primary Care Physician Primary Care Provider Active 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 [address] [place] [address] PCP - General 05/19/10 Joanie Franco MD [facility] [address] 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 [address] [place] [address] PCP - General 05/19/10 Joanie Franco MD [address] 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, [facility] [address] [place] [address] PCP - General 05/19/10 Joanie Franco MD [address] [facility], [facility] [address] [place] [address] PCP - [facility] PCP 04/26/21 Team Status: Active Member Role Status Dates No Primary Care Physician Family Provider Active Varsha Beth DIRECTOR MARKETING COMMUNICATIONS, DIRECTOR MARKETING COMMUNICATIONS-C Primary Care Provider Active Team Status: Inactive Member Role Status Dates Varsha Beth DIRECTOR MARKETING COMMUNICATIONS, DIRECTOR MARKETING COMMUNICATIONS-C Primary Care Provider Active Start: March 05, 2024 End: March 05, 2024 Varsha Beth DIRECTOR MARKETING COMMUNICATIONS, DIRECTOR MARKETING COMMUNICATIONS-C Attending Provider Active Start: March 05, 2024 End: March 05, 2024 Varsha Beth DIRECTOR MARKETING COMMUNICATIONS, DIRECTOR MARKETING COMMUNICATIONS-C Referring Provider Active Start: March 05, 2024 End: March 05, 2024 Team Status: Inactive Member Role Status Dates Varsha Beth DIRECTOR MARKETING COMMUNICATIONS, DIRECTOR MARKETING COMMUNICATIONS-C Primary Care Provider Active Start: March 06, 2024 End: March 06, 2024 Varsha Beth DIRECTOR MARKETING COMMUNICATIONS, DIRECTOR MARKETING COMMUNICATIONS-C Attending Provider Active Start: March 06, 2024 End: March 06, 2024 Varsha Beth DIRECTOR MARKETING COMMUNICATIONS, DIRECTOR MARKETING COMMUNICATIONS-C Referring Provider Active Start: March 06, 2024 End: March 06, 2024 Team Status: Inactive Member Role Status Dates Varsha Beth DIRECTOR MARKETING COMMUNICATIONS, DIRECTOR MARKETING COMMUNICATIONS-C Primary Care Provider Active Start: March 06, 2024 End: March 06, 2024 Varsha Beth DIRECTOR MARKETING COMMUNICATIONS, DIRECTOR MARKETING COMMUNICATIONS-C Attending Provider Active Start: March 06, 2024 End: March 06, 2024 Team Status: Inactive Member Role Status Dates Varsha Beth NP, DIRECTOR MARKETING COMMUNICATIONS-C Primary Care Provider Active Start: June 05, 2024 End: June 05, 2024 Varsha Beth NP, DIRECTOR MARKETING COMMUNICATIONS-C Attending Provider Active Start: June 05, 2024 End: June 05, 2024 Varsha Beth NP, DIRECTOR MARKETING COMMUNICATIONS-C Referring Provider Active Start: June 05, 2024 End: June 05, 2024 Team Status: Inactive Member Role Status Dates Varsha Beth NP, DIRECTOR MARKETING COMMUNICATIONS-C Primary Care Provider Active Start: August 14, 2024 End: August 14, 2024 Varsha Beth NP, DIRECTOR MARKETING COMMUNICATIONS-C Attending Provider Active Start: August 14, 2024 End: August 14, 2024 Varsha Beth NP, DIRECTOR MARKETING COMMUNICATIONS-C Referring Provider Active Start: August 14, 2024 [...] BE BASED ON THE PRIMARY CLINICAL RECORDS. [employer] provides no warranty or guarantee of the accuracy or completeness of information in this document.
[2024-10-09 01:53] LABS: Cholesterol 203 mg/dL (<=200); Low Density Lipoprotein Calc. 104 mg/dL; Triglycerides 192 mg/dL; Very Low Density Lipoprotein 38 mg/dL (5-40); cholesterol:hdl ratio screen 3.37
[2024-10-10 15:08] LABS: EBV Acute VCA IgM < 36.0 U/mL (0.0-35.9); EBV-VCA IgG 114.0 U/mL (0.0-17.9)
== END | disposition home or self-care (01) ==
PROVIDERS: PCP Nurse Practitioner; Referring Provider Nurse Practitioner; Visit Provider Nurse Practitioner
DX: E03.9 Hypothyroidism, unspecified (principal); R53.82 Chronic fatigue, unspecified; E78.00 Pure hypercholesterolemia, unspecified
CPT/HCPCS: 80061; 84443; 86664; 86665

== ENCOUNTER 2024-12-15 13:23 | Emergency (ER) | payer BC, SELFPAY ==
[2024-12-15 13:24] VITALS: BP 153/107; PULSE 71; RESP 16; TEMP 36; O2SAT 98; BMI 35.4
[2024-12-15 14:06] LABS: Hematocrit 45.1 % (37-47); Hemoglobin 15.3 g/dL (12.0-15.0); Immature Granulocytes Count 0.090 X10^3/uL (0.0-0.0); Mean Corp Hgb Conc 33.9 g/dL (32-36); Mean Corpuscular Volume 87.7 fL (81-99); Mean Platelet Vol. 9.3 fl (6.2-12.0); NRBC Flagged by Analyzer 0 % (0-5); Platelet Count 377 K/mm3 (150-450); RBC Distribution Width CV 14.1 % (11.6-14.6); RBC Distribution Width SD 45.2 fl (35.1-43.9); Red Blood Count 5.14 M/mm3 (4.2-5.4); White Blood Count 18.3 K/mm3 (4.4-11.0)
[2024-12-15 14:11] LABS: Internal QC Validated? YES +Cl - CLEAR BKGD; Pregnancy, Serum, hCG Quali. NEGATIVE Negative; Record Kit Lot#, Serum Preg. 964736
[2024-12-15 14:45] LABS: AST(SGOT) 22 U/L (<=31); Alanine Aminotransfer ALT/SGPT 34 U/L (<=34); Albumin, Serum 4.5 g/dL (3.5-5.0); Alkaline Phosphatase 85 U/L (35-104); Anion Gap 13 (5-15); BUN 14 mg/dL (4-19); BUN/Creat Ratio 16.6 RATIO (10-20); Calcium,Total 10.4 mg/dL (7.6-11.0); Carbon Dioxide 21.9 mmol/L (21.0-32.0); Chloride 105 mmol/L (98-108); Estimated Creatinine Clearance 91.66 ml/min (50-250); Globulin 3.0 g/dL (2.2-4.2); Glucose 111 mg/dL (70-99); Lipase 26 U/L (13-75); Potassium 3.8 mmol/L (3.3-5.1)
--- NOTE | 2024-12-15 16:08 | EDS_ITS ---
HPI HPI - GI History of Present Illness Chief Complaint: Abd Pain Narrative Narrative: Patient is a 44-year-old female presenting emergency department for epigastric abdominal pain, nausea, vomiting and diarrhea that started around 9:30 AM this morning. Patient states before that she felt normal. She has past medical history of of anxiety, depression, hypothyroidism. Patient states that the pain does not radiate anywhere. She endorses about 15 episodes of green-colored emesis today. Denies any blood in her vomit or diarrhea. Denies any dysuria or hematuria. Denies any fever or chills. Denies any recent sick contacts. Denies this ever happening before. [facility] Medical History Skin lesion of face ABLATION UTERINE 2010 ADD (attention deficit disorder) Depression Anxiety disorder history of cystectomy Home Medications ?Medication ?Instructions ?Recorded ?Last Taken ?Type bupropion HCl 300 mg 24 hr tablet, 300 mg PO QAM 12/14 Unknown History extended release (Wellbutrin XL) albuterol sulfate 90 mcg/actuation 2 puff inhalation Q 6H PRN 08/26/20 Unknown Rx aerosol inhaler (ProAir HFA) shortness of breath or wh eezing #6.7 grams cyclobenzaprine 10 mg tablet 10 mg PO TID PRN muscle s pasm #60 11/12/20 Unknown Rx tabs tramadol 50 mg tablet 50 mg PO Q8H PRN pain #30 ta bs 11/12/20 Unknown Rx benzonatate 200 mg capsule 200 mg PO TID PRN cough #60 caps 03/24/21 Unknown Rx mupirocin 2 % topical ointment 1 applic topical BID #1 5 grams 04/28/21 Unknown Rx promethazine 12.5 mg tablet 12.5 mg PO TID PRN nausea and 08/05/21 Unknown Rx vomiting #60 tabs semaglutide 2 mg/dose (8 mg/3 mL) 0.25 mg subcut QWEEK 04/19/22 Unknown History subcutaneous pen injector fluconazole 150 mg tablet 150 mg PO Q3D 2 doses #2 tab s 02/07/23 Unknown Rx trazodone 100 mg tablet 200 mg (2 x 100 mg) PO QHS 1 80 04/19/23 Unknown Rx days #360 tabs ofloxacin 0.3 % eye drops See Rx Instructions ophthalm ic 07/26/23 Unknown Rx (eye) .COMPLEX #5 mL levothyroxine 88 mcg tablet 88 mcg PO DAILY #90 tabs 0 08/23/23 Unknown Rx hydroxyzine HCl 10 mg tablet 10 mg PO TID-QID PRN anxi ety #45 12/27/23 Unknown Rx tabs valacyclovir 1 gram tablet 2,000 mg (2 x 1 gram) PO BI D PRN 01/23/24 Unknown Rx cold sores 1 day #4 tabs pantoprazole 40 mg tablet,delayed 40 mg PO QDAY #30 ta bs 09/10/24 Unknown Rx release venlafaxine 75 mg capsule,extended 225 mg PO QDAY 08/24 11/17 Unknown History release 24 hr atomoxetine 80 mg capsule 80 mg PO QAM #30 caps Unknown Rx ondansetron 4 mg disintegrating 4 mg PO Q8H PRN PRN Na usea #10 tabs 12/15/24 Unknown Rx tablet Allergy/AdvReac Type Severity Reaction Status Date / Time No Known Allergies Allergy Verified 04/19/17 09:24 Family History Other Breast cancer Diabetes Heart disease High cholesterol Hypertension Migraines TREMORS Thyroid disorder Surgical History Pilonidal cyst Social History Smoking Status: Current every day smoker tobacco type: e-cigarettes second hand exposure: Yes alcohol intake: current substance use type: does not use ROS ROS ED ROS Narrative see HPI EXAM Physical Exam Narrative Exam Narrative: Vital signs: Reviewed General: Alert and orientedx3. No acute distress HEENT: Head is normocephalic and atraumatic, sinuses nontender, pupils equal round and reactive. Nares are patent. Oropharynx and throat exams normal. Neck: Supple without lymphadenopathy nontender Cardiovascular: Regular rate and rhythm, no murmurs. No rubs or gallops. Normal S1 and S2 Respiratory: Clear to auscultation bilaterally. No wheezes, rales, rhonchi Abdominal: Soft and mildly tender to palpation in the RUQ and epigastric region. Abdomen is otherwise nontender to palpation. Normal bowel sounds. No guarding or rebound. Nonsurgical abdomen. No CVA tenderness palpation. Extremities: No tenderness. No bruising. Normal range of motion. Normal sensation. Skin: No rash or redness. The rest of the physical exam is unremarkable Const Vital Signs: 12/15/24 13:24 12/15/24 16:49 12/15/24 18:00 Temperature 96.8 F L Temperature Source Temporal Pulse Rate 71 69 60 Respiratory Rate 16 16 16 Blood Pressure 153/107 H 148/96 H 127/84 H Blood Pressure Mean 122 113 98 Pulse Ox 98 97 97 Oxygen Delivery Method Room Air Room Air Room Air 12/15/24 20:04 Temperature 98.2 F Temperature Source Pulse Rate 61 Respiratory Rate 18 Blood Pressure 133/79 H Blood Pressure Mean 97 Pulse Ox 99 Oxygen Delivery Method MDM MDM MDM Narrative Medical decision making narrative: Patient is a 44-year-old female presenting the emergency department for epigastric abdominal pain, nausea, vomiting, diarrhea that started at 9:30 AM t his morning. Patient was seen and examined. Vitals are stable. Patient resting in chair comfortably in the hallway in no acute distress. Differential includes but is not limited to: Gastroenteritis, colitis, diverticulitis, pancreatitis, cholecystitis, UTI Patient given fluids, Zofran and morphine for symptomatic control. CBC with leukocytosis of 18.3, suspect this is reactive given the amount of vomiting she has had. Hemoglobin of 15.3. CMP with no significant normalities. Normal liver and kidney functioning. Lipase within normal limits. Patient started on a fluid bolus and given morphine and Zofran for symptomatic control. Urinalysis with 10-25 WBC and 1+ bacteria but otherwise no leukocyte esterase and no nitrites. Sent for urine culture however will not treat this at this time. CT abdomen pelvis shows scattered small bowel and right colonic inflammation that may reflect enterocolitis. Patient reevaluated. She is feeling improved after fluids and medications. She is able to tolerate p.o. Given she is only had 1 day of symptoms I think this is likely viral in nature and will not treat the enterocolitis with antibiotics. She was prescribed Zofran for home. Patient discharged from the Emergency Department. I do not feel that the patient's evaluation reveals any acute reason for admission at this time. I instructed them to either follow-up with their primary care physician or promptly return to the Emergency Department for reevaluation should symptoms worsen or new symptoms develop. I explained what symptoms would indicate the need to return to the emergency department. Shared decision making was used. The patient voiced understanding of the treatment plan and is agreeable with it. Clinical impression: Nausea, vomiting, diarrhea History & Record Review Discussion w/independent historian: Patient and Significant other Lab Data Attestation: I reviewed the patient's lab results. Labs: Laboratory Results - last 24 hr 12/15/24 12/15/24 13:50 16:50 WBC 18.3 H RBC 5.14 Hgb 15.3 H Hct 45.1 MCV 87.7 MCH 29.8 MCHC 33.9 RDW Std Deviation 45.2 H RDW Coeff of Nathanael 14.1 Plt Count 377 MPV 9.3 Immature Gran % (Auto) 0.500 Neut % (Auto) 81.5 H Lymph % (Auto) 13.3 L [place] % (Auto) 4.2 Eos % (Auto) 0.2 Baso % (Auto) 0.3 Absolute Neuts (auto) 14.9 H Absolute Lymphs (auto) 2.44 Nucleated RBC % 0 Sodium 140 Potassium 3.8 Chloride 105 Carbon Dioxide 21.9 Anion Gap 13 BUN 14 Creatinine 0.82 Estim Creat Clear Calc 91.66 Est GFR (MDRD) Non-Af 89 BUN/Creatinine Ratio 16.6 Glucose 111 H Calcium 10.4 Total Bilirubin 0.26 AST 22 ALT 34 Alkaline Phosphatase 85 Total Protein 7.5 Albumin 4.5 Globulin 3.0 Albumin/Globulin Ratio 1.5 Lipase 26 Serum , Qual NEGATIVE Urine Color Yellow Urine Clarity Clear Urine pH 5.0 Ur Specific [place] 1.025 Urine Protein 30 H Urine Glucose (UA) Normal Urine Ketones Negative Urine Occult Blood Negative Urine Nitrite Negative Urine Bilirubin Negative Urine Urobilinogen Normal Ur Leukocyte Esterase Negative Urine RBC 0 SEEN Urine WBC 10-25 SEEN Ur Squamous Epith Cells 0 SEEN Urine Bacteria 1+ Urine Mucus 0 SEEN Radiography Diagnostic Testing: Clinical Impression(s) from Imaging Studies Abdomen/Pelvis CT 12/15/24 17:03 IMPRESSION: Scattered small bowel and right colonic inflammation may reflect enterocolitis. Reading Location: [facility] Discharge Plan Triage Chief Complaint: Abd Pain Other Complaint: Nausea/Vomiting ED Provider: Jie Glass Dx/Rx/DC Orders Clinical Impression: Gastroenteritis, Diarrhea, Nausea & vomiting Instructions: Viral Gastroenteritis, Self-Care for Vomiting and Diarrhea Prescriptions: New ondansetron 4 mg tablet,disintegrating 4 mg PO Q8H PRN PRN (Reason: Nausea) Qty: 10 0RF No Action bupropion HCl [Wellbutrin XL] 300 mg tablet extended release 24 hr 300 mg PO QAM albuterol sulfate [ProAir HFA] 90 mcg/actuation HFA aerosol inhaler 2 puff inhalation Q6H PRN (Reason: shortness of breath or wheezing) Qty: 6.7 12RF tramadol 50 mg tablet 50 mg PO Q8H PRN (Reason: pain) Qty: 30 5RF cyclobenzaprine 10 mg tablet 10 mg PO TID PRN (Reason: muscle spasm) Qty: 60 3RF benzonatate 200 mg capsule 200 mg PO TID PRN (Reason: cough) Qty: 60 2RF mupirocin 2 % ointment 1 applic topical BID Qty: 15 1RF promethazine 12.5 mg tablet 12.5 mg PO TID PRN (Reason: nausea and vomiting) Qty: 60 1RF semaglutide 2 mg/dose (8 mg/3 mL) pen injector 0.25 mg subcut QWEEK fluconazole 150 mg tablet 150 mg PO Q3D Qty: 2 1RF Rx Instructions: may repeat in 3 days trazodone 100 mg tablet 200 mg PO QHS 180 Days Qty: 360 3RF ofloxacin 0.3 % drops See Rx Instructions ophthalmic (eye) .COMPLEX Qty: 5 2RF Rx Instructions: put 1-2 drps into affected eye(s) every 2-4 h x 2 days, then 1-2 drps 4 times/day days 3-7 ophthalmic (eye) levothyroxine 88 mcg tablet 88 mcg PO DAILY Qty: 90 3RF hydroxyzine HCl 10 mg tablet 10 mg PO TID-QID PRN (Reason: anxiety) Qty: 45 12RF valacyclovir 1 gram tablet 2,000 mg PO BID PRN (Reason: cold sores) 1 Days Qty: 4 12RF pantoprazole 40 mg tablet,delayed release (DR/EC) 40 mg PO QDAY Qty: 30 12RF venlafaxine 75 mg capsule,extended release 24hr 225 mg PO QDAY atomoxetine 80 mg capsule 80 mg PO QAM Qty: 30 12RF Primary Care Provider: Varsha Beth NP Referrals: Varsha Beth NP, [employer] [Primary Care Provider, [facility]] - 2 Days Activity Restrictions/Additional Instructions: Take the Zofran every 8 hours as needed for nausea and vomiting. Please drink lots of fluids. You need to return to the ED with any fevers above 100.4, inability to eat or drink due to nausea or vomiting not controlled by the zofran, worsening abdominal pain. Your evaluation in the Emergency Department did not reveal any acute reason for admission. However, I want to emphasize that you may be early in the course of a disease process or illness even if it is not present. For this reason you should follow-up within 24 hours for reevaluation with either your primary care physician or if necessary back here in the Emergency Department. You should return to the Emergency Department immediately if your symptoms worsen or new symptoms develop. Print Language: Armenian Disposition Disposition: Home, Self Care Discharge Date/Time: 12/15/24 20:05
[2024-12-15] MEDS: 0.9% Normal Saline (1000mL) 1,000 ML 1000 ML IV (16:44)
[2024-12-15 16:49] VITALS: BP 148/96; PULSE 69; RESP 16; O2SAT 97
[2024-12-15 16:58] LABS: Mucous, Urine 0 SEEN /hpf (<or=2+); Red Blood Cells-Urine 0 SEEN /hpf (0-5); Squamous Epithelial Cells - UA 0 SEEN /hpf (5-10)
--- NOTE | 2024-12-15 17:03 | CT_ITS ---
PROCEDURE: ABDOMEN/PELVIS W IV CONT ONLY 12/15/2024 REASON FOR EXAM: ABD PAIN, VOMITING TECHNIQUE: Procedure Code: [id number] Modality: CT Procedure: ABDOMEN/PELVIS W IV CONT ONLY Coronal and Sagittal reconstruction series were provided. CONTRAST: 100 mL of Isovue 370 One or more dose reduction techniques were used (e.g., Automated exposure control, adjustment of the mA and/or kV according to patient size, use of iterative reconstruction technique. RADIATION DOSE SUMMARY: DLP: 780 mGycm COMPARISON: None FINDINGS: Limited sections of the lung bases demonstrate no focal pulmonary mass or consolidations. The liver, spleen, pancreas, and both adrenal glands demonstrate no acute findings. Hepatic steatosis. The gallbladder is unremarkable. The stomach is unremarkable. Scattered small bowel and right colonic inflammation may reflect enterocolitis. The appendix is normal.. No colonic obstruction. There is no free air or significant free fluid. The kidneys are unremarkable. The urinary bladder is not distended. The pelvic structures are intact. There is no solid pelvic mass. Uterus is surgically removed. No significant lymphadenopathy. The aorta and IVC demonstrate no acute findings. Visualized osseous structures demonstrate no acute abnormality. CT/Abdomen/Pelvis W IV Cont ONLY IMPRESSION: Scattered small bowel and right colonic inflammation may reflect enterocolitis. Reading Location: [id number]
[2024-12-15 17:43] LABS: Color, Urine Yellow (Yellow); Glucose, Dipstick Normal (Normal); Ketone-Dipstick Negative (Negative); Leukocyte Esterase-Dipstick Negative /ul (Negative); Nitrite-Dipstick Negative (Negative); Occult Blood-Urine Negative /ul (Negative); Protein-Dipstick 30 mg/dl (Negative); Specific Gravity, Urine 1.025 (1.002-1.030); Urine Bilirubin Dipstick Negative (Negative)
[2024-12-15 18:00] VITALS: BP 127/84; PULSE 60; RESP 16; O2SAT 97
[2024-12-15 20:04] VITALS: BP 133/79; PULSE 61; RESP 18; TEMP 36.8; O2SAT 99
== END 2024-12-15 20:05 | disposition home or self-care (01) ==
PROVIDERS: Emergency Provider Student in an Organized Health Care Education/Training Program; PCP Nurse Practitioner; Visit Provider Student in an Organized Health Care Education/Training Program
DX: K52.9 Noninfective gastroenteritis and colitis, unspecified (principal); F41.9 Anxiety disorder, unspecified; R11.2 Nausea with vomiting, unspecified; E03.9 Hypothyroidism, unspecified; F32.A Depression, unspecified; F17.290 Nicotine dependence, other tobacco product, uncomplicated; D72.829 Elevated white blood cell count, unspecified
CPT/HCPCS: 74177; 80053; 81001; 83690; 84703; 85025; 87086; 96361; 96374; 96375; 99283; Q9967; A4216; J2405

== ENCOUNTER 2024-12-19 22:12 | Emergency (ER) | payer BC, SELFPAY ==
--- OUTSIDE RECORDS SUMMARY | 2024-06-30 14:19 | XMS RPT_ITS ---
Author Name Auto Generated Organization OHIP Care Team Providers Care Naval Architect Name Role Phone OTILIA BAKER Attending Unavail able NAILA FRANCO Primary Care Unavailable BENJI MILAN MD Attending Unavailable NAILA FRANCO Primary Care Unavailable NAILA FRANCO Primary Care Unavailable BENJI MILAN MD Attending Unavailable TOSHA, NAILA Primary Care Unavailable TOSHA, NAILA Primary Care Unavailable SULTANA LAM, TOY Referring Unavailable NAS ALM, BENJI Attending Unavailable TOSHA, JOANIE PATEL Primary Care Unavailable NAS LAM, BENJI Attending Unavailable TOSHA, JOANIE PATEL Primary Care Unavailable NAS LAM, BENJI Attending Unavailable TOSHA, JOANIE PATEL Primary Care Unavailable NAS LAM, BENJI Attending Unavailable TOSHA, LEATHA Primary Care Unavailable TOSHA, NAILA Primary Care Unavailable PROBLEMS No Problem Records Found PROCEDURES No Procedure Records Found RESULTS [facility] PHYSICIAN PROGRESS NOTE Observed: 06/30/2024 8:25 PM Status: F Source: [facility] BIN BILL :1980 Registration Date:06/30/2024 Assessment/Plan This Visit Diagnosis Breast cancer screening by mammogram Z12.31 Ordered: MAMM SCRN BI XENIA, 06/30/2024, Routine, SCREENING, Wheelchair, Isolation Precautions: NONE, Breast cancer screening by mammogram Colon cancer screening Z12.11 Ordered: AMB Cologuard, performed per outside lab 11911, 06/30/2024 14:09:00 EDT, Colon cancer screening History of hysterectomy for benign disease Z90.710 Ordered: AMB Postop followup during global period , 06/30/2024 14:00:00 EDT, Postoperative state / History of hysterectomy for benign disease Postoperative state Z98.890 Ordered: AMB Postop followup during global period , 06/30/2024 14:00:00 EDT, Postoperative state / History of hysterectomy for benign disease Medication Reconciliation What How Much When Instructions Unchanged atomoxetine (Strattera 80 mg oral capsule) 1 Capsules Oral DAILY Unchanged atorvastatin (atorvastatin 20 mg oral tablet) 1 Tabs Oral DAILY Unchanged buPROPion (buPROPion 300 mg/ 24 hours (XL) oral tablet, extended release) 1 Tabs Oral DAILY Unchanged hydrOXYzine (hydrOXYzine hydrochloride 10 mg oral tablet) 1 Tabs Oral FOUR TIMES A DAY as needed for as needed for anxiety Unchanged levothyroxine (levothyroxine 88 mcg (0.088 mg) oral tablet) 1 Tabs Oral DAILY BEFORE BREAKFAST Unchanged Non-Formulary Med (Ashwagandha) 2 gummies Oral DAILY Unchanged Non-Formulary Med (Uro-vaginal probiotic) 1 Capsules Oral DAILY Unchanged traMADol (traMADol 50 mg oral tablet) 1 Tabs Oral EVERY SIX HOURS as needed for pain Unchanged trazodone = Desyrel (traZODone 100 mg oral tablet) 2 Tabs Oral AT BEDTIME Unchanged valACYclovir (valACYclovir 1 g oral tablet) 1 Tabs Oral TWICE A DAY as needed for See Note Line cold sores Unchanged venlafaxine (venlafaxine 75 mg oral capsule, extended release) 3 Capsules Oral DAILY What How Much When Why Comments Stop Taking acetaminophen-hydrocodone (acetaminophen-HYDROcodone 325 mg-5 mg oral tablet) 1 Tabs Oral EVERY SIX HOURS as needed for Mild Pain Acute postoperative pain Duration: 5 Days Chief Complaint Here for 6 wk PO exam Total laparoscopic hysterectomy, bilateral salpingectomy 05/19/24, Dr Milan, Fibroid uterus, Abnormal uterine bleeding History of Present Illness Bin is 6 weeks postop. Only complaint is sweating. Back to normal activities. No bleeding. Happy with the procedure. Physical Exam Vitals & Measurements BP: 146/ 88 HT: 159 cm WT: 86.5 kg BMI: 34.22 Depression Screening Scores Initial Depression Screen Score: 0 (06/30/24 13:33:00) Fall Risk Assessment Is the patient ambulatory (mobile): Yes (06/30/24 13:33:00) Have you had a fall within the past: No (06/30/24 13:33:00) Have you had 2 or more falls in the past: No (06/30/24 13:33:00) The vital signs were reviewed and are her blood pressure. General appearance: well developed and well nourished Lungs: Normal respiratory effort Extremities: no edema Psychiatric: Mood: normal BRIM SETTER: Vital signs reviewed External genitalia: normal, no lesions Urethra: normal meatus Vagina: cuff intact, sutures still present, white discharge, vault normal Cervix: absent Uterus: absent BRIM SETTER Additional Details Menstrual History Menstrual StatusHysterectomy BRIM SETTER Screening Date of Last Pap Smear12/06/2023 Last Pap Result, Pt StatedNegative Last Pap Result CommentNeg HPV Date of Last Mammogram, Pt StatedNever Contraception Contraception MethodSterilization for contraception Sterilization TypeHysterectomy OB History History (2,0,0,2) # 1 Baby 1 Outcome Date: 06/17/1998 Outcome or Result: Vaginal Gest Age: 40 weeks Outcome: Live Sex: Male Hospital: [facility] P[place] # 2 Baby 1 Outcome Date: 12/06/2003 Outcome or Result: Vaginal Gest Age: 40 weeks Outcome: Live Sex: Male Hospital: [facility] [place] Problem List/Past Medical History Ongoing Faint heart murmur History of hysterectomy for benign disease Menorrhagia Palpitations Historical Procedure/Surgical History Total laparoscopic hysterectomy, bilateral salpingectomy - Fibroid uterus, Abnormal uterine bleedin05/19/24: NAS LAM FACOG, BENJI pilonidal cyst: 2016 Hysteroscopy, D&C, Ablation: 2008 Cologard - Never Colonoscopy - Never Medications atomoxetine(Strattera 80 mg oral capsule), 80 mg= 1 caps, ORAL, DAILY atorvastatin(atorvastatin 20 mg oral tablet), 20 mg= 1 tabs, ORAL, DAILY buPROPion(buPROPion 300 mg/24 hours (XL) oral tablet, extended release), 300 mg= 1 tabs, ORAL, DAILY hydrOXYzine(hydrOXYzine hydrochloride 10 mg oral tablet), 10 mg= 1 tabs, ORAL, QID, PRN levothyroxine(levothyroxine 88 mcg (0.088 mg) oral tablet), 88 mcg= 1 tabs, ORAL, DAILY BEFORE BREAKFAST Non-Formulary Med(Uro-vaginal probiotic), 1 caps, ORAL, DAILY Non-Formulary Med(Ashwagandha), 2 gummies, ORAL, DAILY traMADol(traMADol 50 mg oral tablet), 50 mg= 1 tabs, ORAL, [id number], PRN trazodone = Desyrel(traZODone 100 mg oral tablet), 200 mg= 2 tabs, ORAL, QHS valACYclovir(valACYclovir 1 g oral tablet), 1 g= 1 tabs, ORAL, BID, PRN venlafaxine(venlafaxine 75 mg oral capsule, extended release), 225 mg= 3 caps, ORAL, DAILY Allergies No Known Allergies No Known Medication Allergies Social History Alcohol Use:Current Frequency:1-2 times per month Sexual Sexually active:Yes Other contraceptive use:LAVH w/BL Salpingectomy Substance Abuse - Denies Substance Abuse Tobacco Use:Former smoker, quit more than 30 days ago Type:Cigarettes Family History Diabetes..: Mother and Grandfather. Thyroid disease..: Mother. Health Status Family Member(s) Father: History is unknown AMB PHYSICIAN PROGRESS NOTE Observed: 05/29/2024 3:27 PM Status: F Source: [facility] BIN BILL :1980 Registration Date:05/29/2024 Assessment/Plan This Visit Diagnosis Postoperative state Z98.890 Ordered: AQUILES Postop followup during global period 59981, 05/29/2024 15:00:00 EST, Postoperative state Medication Reconciliation What How Much When Why Instructions Unchanged acetaminophen-hydrocodone (acetaminophen-HYDROcodone 325 mg-5 mg oral tablet) 1 Tabs Oral EVERY SIX HOURS as needed for Mild Pain Acute postoperative pain Duration: 5 Days Unchanged atomoxetine (Strattera 80 mg oral capsule) 1 Capsules Oral DAILY Unchanged atorvastatin (atorvastatin 20 mg oral tablet) 1 Tabs Oral DAILY Unchanged buPROPion (buPROPion 300 mg/ 24 hours (XL) oral tablet, extended release) 1 Tabs Oral DAILY Unchanged hydrOXYzine (hydrOXYzine hydrochloride 10 mg oral tablet) 1 Tabs Oral FOUR TIMES A DAY as needed for as needed for anxiety Unchanged levothyroxine (levothyroxine 88 mcg (0.088 mg) oral tablet) 1 Tabs Oral DAILY BEFORE BREAKFAST Unchanged Non-Formulary Med (Ashwagandha) 2 gummies Oral DAILY Unchanged Non-Formulary Med (Uro-vaginal probiotic) 1 Capsules Oral DAILY Unchanged traMADol (traMADol 50 mg oral tablet) 1 Tabs Oral EVERY SIX HOURS as needed for pain Unchanged trazodone = Desyrel (traZODone 100 mg oral tablet) 2 Tabs Oral AT BEDTIME Unchanged valACYclovir (valACYclovir 1 g oral tablet) 1 Tabs Oral TWICE A DAY as needed for See Note Line cold sores Unchanged venlafaxine (venlafaxine 75 mg oral capsule, extended release) 3 Capsules Oral DAILY Chief Complaint Here for 2 wk PO exam - having some pain on Lower left side Total laparoscopic hysterectomy, bilateral salpingectomy 05/19/24, Dr Milan, Fibroid uterus, Abnormal uterine bleeding History of Present Illness Doing well since surgery. Incisions healing well. Had a lot of constipation. Took stool softeners and laxatives and finally feels better. Just using OTC meds now. Physical Exam Vitals & Measurements BP: 130/80 HT: 159 cm WT: 86.5 kg BMI: 34.22 Depression Screening Scores Initial Depression Screen Score: 0 (05/29/24 15:07:00) Fall Risk Assessment Is the patient ambulatory (mobile): Yes (05/29/24 15:07:00) Have you had a fall within the past: No (05/29/24 15:07:00) Have you had 2 or more falls in the past: No (05/29/24 15:07:00) incisions: c/d/i BRIM SETTER Additional Details Menstrual History Menstrual StatusHysterectomy(Recorded: 05/29/2024 15:07 EST) Menstrual StatusHysterectomy(Recorded: 05/29/2024 15:07 EST) BRIM SETTER Screening Date of Last Pap Smear12/06/2023 Last Pap Result, Pt StatedNegative Last Pap Result CommentNeg HPV Date of Last Mammogram, Pt StatedNever Contraception Contraception MethodSterilization for contraception Sterilization TypeHysterectomy OB History History (2,0,0,2) # 1 Baby 1 Outcome Date: 06/17/1998 Outcome or Result: Vaginal Gest Age: 40 weeks Outcome: Live Sex: Male Hospital: [facility] Dr [place] # 2 Baby 1 Outcome Date: 12/06/2003 Outcome or Result: Vaginal Gest Age: 40 weeks Outcome: Live Sex: Male Hospital: [facility] [place] Problem List/Past Medical History Ongoing Faint heart murmur Menorrhagia Palpitations Historical Procedure/Surgical History Total laparoscopic hysterectomy, bilateral salpingectomy - Fibroid uterus, Abnormal uterine bleedin05/19/24: NAS LAM FACOG, BENJI hicksdajames cyst: 2017 Hysteroscopy, D&C, Ablation: 2008 Cologard - Never Colonoscopy - Never Medications acetaminophen-hydrocodone(acetaminophen-HYDROcodone 325 mg-5 mg oral tablet), 1 tabs, ORAL, [id number], PRN atomoxetine(Strattera 80 mg oral capsule), 80 mg= 1 caps, ORAL, DAILY atorvastatin(atorvastatin 20 mg oral tablet), 20 mg= 1 tabs, ORAL, DAILY buPROPion(buPROPion 300 mg/24 hours (XL) oral tablet, extended release), 300 mg= 1 tabs, ORAL, DAILY hydrOXYzine(hydrOXYzine hydrochloride 10 mg oral tablet), 10 mg= 1 tabs, ORAL, QID, PRN levothyroxine(levothyroxine 88 mcg (0.088 mg) oral tablet), 88 mcg= 1 tabs, ORAL, DAILY BEFORE BREAKFAST Non-Formulary Med(Uro-vaginal probiotic), 1 caps, ORAL, DAILY Non-Formulary Med(Ashwagandha), 2 gummies, ORAL, DAILY traMADol(traMADol 50 mg oral tablet), 50 mg= 1 tabs, ORAL, [id number], PRN trazodone = Desyrel(traZODone 100 mg oral tablet), 200 mg= 2 tabs, ORAL, QHS valACYclovir(valACYclovir 1 g oral tablet), 1 g= 1 tabs, ORAL, BID, PRN venlafaxine(venlafaxine 75 mg oral capsule, extended release), 225 mg= 3 caps, ORAL, DAILY Allergies No Known Allergies No Known Medication Allergies Social History Alcohol Use:Current Frequency:1-2 times per month Sexual Sexually active:Yes Other contraceptive use:BTL Substance Abuse - Denies Substance Abuse Tobacco Use:Former smoker, quit more than 30 days ago Type:Cigarettes Family History Diabetes..: Mother and Grandfather. Thyroid disease..: Mother. Health Status Family Member(s) Father: History is unknown Lab Results pathology reviewed PHONE MSG Observed: 05/23/2024 2:40 PM Status: F Source: [facility] From: Deb Hermosillo Sent: 05/23/2024 14:40:32 EST Subject: RESCHEDULE Caller Name: BIN BILL; Caller Number: H L/V/M TO RESCHEDULE DO TO DR. Gallardo OUT OF OFFICE THE DATE. LOOKING TO SCHEDULE ON 05/29/2024 AT 14:50 PHONE MSG Observed: 05/21/2024 1:49 PM Status: F Source: [facility] Entered by BENJI MILAN MD, FACOG on May 21, 2024 13:49:48 EST From: BENJI MILAN MD, FACOG To: [facility] Sent: 05/21/2024 13:49:48 EST Subject: Medication Management Not Approved: Refill not appropriate acetaminophen-hydrocodone (hydrocodone 5 mg-acetaminophen 325 mg tablet) TAKE 1 TABLET BY MOUTH EVERY 6 HOURS NEEDED FOR PAIN FOR 5 DAYS Qty: 20 tabs Days Supply: 5 Refills: 0 Substitutions Allowed Route To Pharmacy - [facility] From: [facility] To: BENJI MILAN MD Sent: May 21, 2024 12:48:05 PM EST Subject: Medication Management Due: May 22, 2024 6:46:54 AM EST On Hold Pending Signature Drug: acetaminophen-hydrocodone (acetaminophen-HYDROcodone 325 mg-5 mg oral tablet), 1 tabs ORAL [id number],x5 days,PRN:Mild Pain Quantity: 20 tabs Days Supply: 0 Refills: 0 Substitutions Allowed Notes from Pharmacy: Dispensed Drug: acetaminophen-hydrocodone (acetaminophen-HYDROcodone 325 mg-5 mg oral tablet), TAKE 1 TABLET BY MOUTH EVERY 6 HOURS NEEDED FOR PAIN FOR 5 DAYS Quantity: 20 tabs Days Supply: 5 Refills: 0 Substitutions Allowed Notes from Pharmacy: OPERATIVE REPORT Observed: 05/19/2024 8:47 PM Status: F Source: [facility] BIN BILL :1980 Date of Operation 05/19/2024 08:54 Indication for Surgery Bin is a 43 year old who had an endometrial ablation in the past began having bleeding. We discussed treatment options since she was noted to have fibroids on her recent ultrasound and plan to do a laparoscopic assisted vaginal hysterectomy, bilateral salpingectomy *Preoperative Diagnosis Fibroid uterus, Abnormal uterine bleeding *Postoperative Diagnosis Same Operative Procedure Total laparoscopic hysterectomy, bilateral salpingectomy Surgeon(s) BENJI MILAN MD, FACOG (Surgeon Primary) Martha(Secondary) Indication for Bessemer Converter Operator Given the inherent complexity of this surgery, a second surgeon or a surgically skilled Physician Resource Recovery Specialist was necessary for the successful completion of this entire operative procedure. The assistant pressman was essential for safe and proper positioning of the patient, initial tissue dissection, complex manipulation and retraction of soft tissue, achieving hemostasis, maintaining exposure, and complex multilayer wound closure. Anesthesia GET Estimated Blood Loss 100 mL *Specimen(s) Uterus and bilateral fallopian tubes *Complications none Description of Procedure Bin was taken to the operating room where general endotracheal anesthesia was obtained without difficulty. She was placed in the dorsal lithotomy position. A speculum was placed in her vagina. The anterior lip of the cervix was grasped with a single-toothed tenaculum. The cervix was dilated and a VCARE uterine manipulator was placed in the uterus. I changed gloves. Attention was turned to her abdomen where a 5 mm incision was made in the umbilicus with a scalpel. A 5 mm trocar was placed into her abdomen without difficulty. CO2 gas was used to create a pneumoperitoneum. We inspected the pelvis. The ovaries appeared normal. The fallopian tubes were previously transected. There were adhesions from the omentum to the fundus of the uterus. Incisions were made on the left and right side of the abdomen and trocars were placed under direct visualization. I used the harmonic scalpel to remove the adhesions from the fundus. I used the harmonic scalpel to cut through the mesosalpinx on the left. I then cut through the round ligament. I identified the uterine vessels and transected them with the harmonic scalpel. I created the bladder flap anteriorly. The same was done on the right side without incident. The Vcare cup seemed very low so we decided to do the remainder of the procedure vaginally. I injected the vaginal mucosa with 1% lidocaine with epinephrine and then made a circumferential incision. I then entered posteriorly sharply. A swan neck speculum was placed. I used a terrance clamp on the left uterosacral ligement, it was transected and suture ligated with an 0 vicryl. The same was done on the right. I placed a terrance clamp on the remaining pedicle on the left. It was transected and suture ligated with an 0 vicryl. The same was done on the right. The uterus and fallopian tubes were then removed. Hemostasis was noted, I closed the cuff in a transverse fashion with 0 vicryl in a running, locked fashion. Hemostasis was obtained. We changed gloves and attention was turned back to the abdomen. The pneumoperitoneum was recreated. The pedicles were hemostatic. We copiously irrigated the pelvis. Nii three grams was placed over the cut surfaces. The procedure was terminated. All instruments were removed from the pelvis. Sponge, lap and needle counts were correct. The 5 mm ports were reapproximated with a 4-0 vicryl and surgical glue was placed over all three incisions. She was awoken from anesthesia and taken to the recovery room in stable and satisfactory condition. Sponge, lap and needle counts were correct at the end of the procedure. ANESTHESIA Observed: 05/19/2024 3:29 PM Status: F Source: [facility] Patient: BIN BILL Age: 43 years Sex: Female : 1980 Associated Diagnoses: None Author: ELSIE DAVIDSON MD Postoperative Information Time Seen: Date & Time 05/19/2024 14:35:00. Assessment Postanesthesia assessment Vitals: Vital Signs (last value in last 48 hours) Temperature Temporal Artery: 36.2 degC (05/19/24 13:45:00) Respiratory Rate: 16 br/min (05/19/24 14:30:00) Peripheral Pulse Rate: 96 bpm (05/19/24 14:30:18) Heart Rate Monitored: 96 bpm (05/19/24 14:30:17) Systolic Blood Pressure: 109 mmHg (05/19/24 14:30:00) Diastolic Blood Pressure: 75 mmHg (05/19/24 14:30:00) Mean Arterial Pressure, Cuff: 99 mmHg (05/19/24 14:15:00) SpO2: 93 % (05/19/24 14:30:18). Mental status: at preoperative baseline. Respiratory support: normal oxygenation and ventilation. Pain: controlled. Nausea status: absence of nausea and vomiting. Postoperative hydration status: euvolemic. Notes: normothermia. SURGICAL PATH REPORT Observed: 12:01 PM Status: F Source: [facility] Department of Pathology [address] [place] [id number] [phone] Name: BIN BILL : 1980 [facility] [id number] Number: Gender Female Locatio SW ASC : n: Admit 43 years Attending BENJI MILAN MD, FACOG Age: Provider: Ordering BENJI MILAN MD, FACOG Provider: Consulti Surgical Pathology Report ng: ACCESSION: COLLECTED DATE/TIME: RECEIVED DATE/TIME: PATHOLOGIST: [id number] 05/19/2024 12:01 EST 05/19/2024 13:32 EST SANTIAGO RINCON MD Final Diagnosis A. 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 Immunohistochemistry staining shows positive ER negative NC and negative for Napsin A and described area which argues about clear-cell lesion/carcinoma of endometrium. Additional sections submitted from surrounding area showing no evidence of atypia or malignancy. SANTIAGO RINCON PATHOLOGIST (Electronic Signature) Date Verified 05/22/2024 EK Clinical Data PREOP DIAGNOSIS: MENORRHAGIA POSTOP DIAGNOSIS: SAME PROCEDURE: LAPAROSCOPIC ASSISTED VAGINAL HYSTERECTOMY, BILATERAL SALPINGECTOMY SPECIMEN: UTERUS/CERVIX/FALLOPIAN TUBES Gross Description Labeled uterus cervix fallopian tubes. Received in formalin are bilateral fallopian tubes attached to an intact uterus. The fallopian tubes consists of cylindrical segments which are pink-purple to red. Each include 1 end which is fimbriated. On there apparent proximal portions is an area of discontinuity. The left fallopian tube measures 5.5 cm in length and has a cross diameter of 0.5 cm. The right fallopian tube measures 5.7 cm in length and has a cross diameter ranging from 0.5 to 0.7 cm proximal to distal. The uterus proper weighs ____ Print 05/26/2024 10:07 EST Number: Date/Time: General Department of Pathology [address] [place] [id number] Name: BIN BILL : 1980 [facility] [id number] Number: Gender Female Locatio ASC : n: Admit 43 years Attending BENJI MILAN MD, FACOG Age: Provider: Ordering BENJI MILAN MD, FACOG Provider: Consulti Surgical Pathology Report ng: ACCESSION: COLLECTED DATE/TIME: RECEIVED DATE/TIME: PATHOLOGIST: [id number] 05/19/2024 12:01 EST 05/19/2024 13:32 EST SANTIAGO RINCON MD Gross Description 65 g and measures 10.2 x 5.5 cm, AP dimension 3.4 cm. The serosal surface is harrington-pink to red-purple smooth and glistening. On both the anterior and posterior serosal surfaces are nodular protuberances which on cut section are composed of bulging white whorled tissue. The largest nodule measures up to 2.2 cm in greatest dimension. The cervical os is patent and has a cross diameter of 0.5 cm. The ectocervical mucosa is harrington-pink smooth and glistening. The cervical canal measures to a depth of 3.5 cm. The endometrial cavity is focally stenosed in the fundus but does measure 2 and additional depth of 5.2 cm, intra fundal dimension 1.8 cm. The endometrium is velvety harrington-red smooth and glistening with an average thickness of 0.2 cm. Sectioning through the anterior uterine wall it is homogeneous harrington-pink except for the presence of 3 similar bulging white whorled nodules the largest measuring up to 0.7 cm in greatest dimension. The wall overall measures up to 2.6 cm in thickness. Sectioning through the posterior uterine wall it is homogeneous harrington-pink except for the presence of a single bulging white whorled nodule measuring up to 0.5 cm in greatest dimension. The wall overall measures up to 2.5 cm in thickness. E Commerce Merchant sections are submitted under the following designations: Cassette 1 anterior cervix at 12:00, cassettes 2 and 3 anterior uterine wall not full-thickness, cassette 4 anterior uterine wall nodules, cassette 5 anterior serosal surface nodule, cassettes 6 posterior cervix at 6:00, cassettes 7 and 8 posterior uterine wall not full-thickness, cassette 9 posterior serosal surface 7 posterior uterine wall nodules, cassette 10 left fallopian tube, cassette 11 right fallopian tube. 05/19/2024 13:52:39 EST Additional sections are submitted under the following designations per Dr. Rincon: Cassettes 12 through 14 remainder of anterior endometrium from lower uterine segment to fundus. 05/21/2024 09:08:49 EST Microscopic Diagnosis The final diagnosis is based on a microscopic exam of instruments sales representative sections. NOTE: One or more of the reagents used to perform assays on this specimen MAY have contained components considered to be analyte specific reagents (ASRs). ASRs have not been cleared or ____ Print 05/26/2024 10:07 EST Number: Date/Time: General Department of Pathology [id number] [place] [id number] Name: BIN BILL : 1980 [employer] [id number] Number: Gender Female Locatio ASC : n: Admit 43 years Attending BENJI MILAN MD, FACOG Age: Provider: Ordering BENJI MILAN MD, FACOG Provider: Consulti Surgical Pathology Report ng: ACCESSION: COLLECTED DATE/TIME: RECEIVED DATE/TIME: PATHOLOGIST: [id number] 05/19/2024 12:01 EST 05/19/2024 13:32 EST SANTIAGO RINCON MD Microscopic Diagnosis approved by the U.S. Food and Drug Administration. The performance characteristics of these assays have been determined by the Department of Pathology at [facility]. This assay was performed subsequent to the H and E examination. Appropriate positive and negative controls were examined with appropriate reactivity. This report was transcribed using voice recognition technology and might contain unintended computerized fish house worker errors. Codes CPT CODE: 65346, 35725, 83635 x 2 ____ Print 05/26/2024 10:07 EST Number: Date/Time: Performed By: #### [id number] # ### [facility] [address] [place] [id number] Calculating Machine Mechanic: Landon Calabrese MD ANESTHESIA Observed: 05/19/2024 11:04 AM Status: F Source: [facility] Patient: BIN BILL Age: 43 years Sex: Female : 1980 Associated Diagnoses: None Author: ELSIE DAVIDSON MD DIAGNOSIS: MENORRHAGIA Preoperative Information Procedure/ Case: LAPAROSCOPIC ASSISTED VAGINAL HYSTERECTOMY, BILATERAL SALPINGECTOMY NPO greater than 8 hours. Anesthesia history Patient's history: negative. Family's history: negative. Review of Systems ALL SYSTEMS REVIEWED: CV, PULM, GI, , NEURO, HEPATIC, HEME, ENDO, PSYCH, MS HISTORY/ROS: HYPERLIPIDEMIA ANXIETY/DEPRESSION HYPOTHYROIDISM OBESITY BMI 35 NEGATIVE CARDIAC WORK-UP IN THE PAST FOR A HEART MURMUR Health Status Allergies: Allergies (2) Active Severity Reaction No Known Allergies None Documented No Known Medication Allergies None Documented Current medications: Home Medications (13) Active Ashwagandha 2 gummies, ORAL, DAILY atorvastatin 20 mg oral tablet 20 mg = 1 tabs, ORAL, DAILY buPROPion 300 mg/24 hours (XL) oral tablet, extended release 300 mg = 1 tabs, ORAL, DAILY hydrOXYzine hydrochloride 10 mg oral tablet 10 mg = 1 tabs, PRN, ORAL, QID levothyroxine 88 mcg (0.088 mg) oral tablet 88 mcg = 1 tabs, ORAL, DAILY BEFORE BREAKFAST Percocet 5 mg-325 mg oral tablet 1 tabs, ORAL, [id number] Strattera 80 mg oral capsule 80 mg = 1 caps, ORAL, DAILY traMADol 50 mg oral tablet 50 mg = 1 tabs, PRN, ORAL, [id number] traZODone 100 mg oral tablet 200 mg = 2 tabs, ORAL, QHS Uro-vaginal probiotic 1 caps, ORAL, DAILY valACYclovir 1 g oral tablet 1 g = 1 tabs, PRN, ORAL, BID venlafaxine 75 mg oral capsule, extended release 225 mg = 3 caps, ORAL, DAILY Vyvanse 50 mg oral capsule 50 mg = 1 caps, ORAL, DAILY LABORATORY DATA Chemistry BMP Plus Mag No qualifying data available. Hematology CBC brief [address] HCT: 45.5 % (05/19/24) Coagulation PT INR [address] No qualifying data available. Test No qualifying data available. Histories Past Medical History: Past Medical History (2) Procedure history: pilonidal cyst in 2017 at 36 Years. Hysteroscopy, D&C, Ablation in 2008 at 28 Years. Colonoscopy - Never. Cologard - Never. Social History Social & Psychosocial History Social History Alcohol Current, 1-2 times per month Sexual Sexually active: Yes. Other contraceptive use: BTL. Substance Abuse Denies Substance Abuse Tobacco Former smoker, quit more than 30 days ago Tobacco Use:. Cigarettes Comment: quit January 2024 (05/08/2024 13:10 - [place], Genoveva) Psychosocial History No active psychosocial history has been recorded . Physical Examination VITALS Vital Signs (last value in last 48 hours) Temperature Temporal Artery: 36.2 degC (05/19/24 10:21:00) Respiratory Rate: 14 br/min (05/19/24 10:21:00) Peripheral Pulse Rate: 89 bpm (05/19/24 10:21:53) Heart Rate Monitored: 88 bpm (05/19/24 10:21:50) Systolic Blood Pressure: 141 mmHg High (05/19/24 10:21:59) Diastolic Blood Pressure: 95 mmHg High (05/19/24 10:21:59) Mean Arterial Pressure, Cuff: 114 mmHg High (05/19/24 10:21:59) SpO2: 98 % (05/19/24 10:21:53)Height and Weight (last value in last 48 hours) Weight Dosin.3 kg (05/19/24 10:15:00) Weight Measured: 85.3 kg (05/19/24 10:15:00) General: Alert and oriented. Airway: Mallampati classification: II (soft palate, fauces, uvula visible). Respiratory: Lungs are clear to auscultation. Cardiovascular: Normal rate, Regular rhythm, No murmur. Assessment and Plan [place] [employer]esthesi[employer] (ASA) physical status classification: Class II. Anesthetic Preoperative Plan Premedication: intravenous. Anesthetic technique: General anesthesia. Induction: intravenously. Maintenance airway: Oral endotracheal tube. Special monitoring: Standard ASA monitors.. Risks discussed: nausea, vomiting, headache, sore throat, dental injury, hypotension, allergic reaction, serious complications, Questions answered. Risks and Benefits explained. Rationale and Alternatives discussed with patient/guardian/parent (s)/family.. Informed consent: signed by patient. Notes. PARDEEP Preanesthesia Assessment: PARDEEP Diagnosed: No. PARDEEP Positive Screen and Counseling: No. HCT Collected: 10:55 AM Status: F Source: [facility] TYPE CODE TESTS RESULT OUT OF RANGE REFERENCE UNITS LAB 8129 HCT 45.5 Normal 36.0-46.0 % Performed By: #### [id number] ## ## [facility] [address] [place], [place] [id number] Calculating Machine Mechanic: Landon Calabrese MD POC GLUCOSE Collected: 10:32 AM Status: F Source: [facility] TYPE CODE TESTS RESULT OUT OF RANGE REFERENCE UNITS LAB [id number](INC) POC Glucose 102 High 72-100 mg/ dL Performed By: #### [id number] #### [facility] [address] [place], [place] [id number] Calculating Machine Mechanic: Landon Calabrese MD RYAN EDUCATION - TEXT Observed: 2:45 PM Status: C Source: [facility] RYAN Education Entered On: 12:55 EST Performed On: 05/08/2024 12:55 EST by Genoveva Rodas RN General / Required Barriers to Learning : None evident TeachBack Methodology : TeachBack, Explanation, Printed Material Lyubov Rodas RNa - 05/08/2024 12:55 EST Education Nursing General Required GRID Pain Management : Verbalizes understanding Speakup : Verbalizes understanding Genoveva Rodas RN 05/08/2024 12:55 EST Topic Specific Education Health Maintenance GRID Bathing/Hygiene : Verbalizes understanding Genoveva Rodas RN - 05/08/2024 12:55 EST Education Medication Management GRID Pain Can Be Managed,Relieved : Verbalizes understanding [facility] 05/08/2024 12:55 EST Infection Control Education Dialysis CHG Cloth Instructions : Verbalizes understanding (Comment: CHG instruction sheet and clothes given to the patient [Genoveva Rodas RN - 05/08/2024 14:45 EST] ) Genoveva Rodas RN - 05/08/2024 14:45 EST Surgery - Hospital form # [id number] : Verbalizes understanding Pre Procedure / Surgery Education Procedures Tests Exams GRID Preoperative Instructions : Verbalizes understanding Preprocedure Tests/Labs : Verbalizes understanding Preprocedure Diet : Verbalizes understanding Genoveva Rodas RN 05/08/2024 12:55 EST PREADMISSION TESTING PROGRESS NOTE Observed: 05/08/2024 2:36 PM Status: F Source: [facility] VTE risk assessment and orde r sheet faxed to Dr. Milan for review. HISTORY AND PHYSICAL Observed: 1:53 PM Status: F Source: [facility] Patient: BIN BILL Age: 43 years Sex: Female : 1980 Associated Diagnoses: None Author: MARY LANIER CNP Basic Information Source of history: Self. Chief Complaint Heavy bleeding Patient presents for presurgical evaluation per basic anesthesia protocol for upcoming laparoscopic-assisted vaginal hysterectomy, bilateral salpingectomy History of Present Illness This pleasant 43-year-old female reports having a hysteroscopy D&C and ablation in 2008 for management of menorrhagia. This is offered her 15 years of improvement. Over the past couple years she has experienced progressively worsening heavy prolonged bleeding. She states her periods can last 5 to 7 days with clots. She experiences dysmenorrhea and takes ibuprofen or Tylenol as needed for pain. Her last Pap was in November 2023 with no abnormal findings. An ultrasound was done which revealed 2 intramural fibroids 2.4 cm x 1.7 cm x 1.6 cm and a 1.1 cm x 0.9 cm x 1.1 cm. An endometrial biopsy was done which revealed detached atypical squamous epithelium, mild dysplasia cannot be entirely excluded. Dr. Milan is recommending a laparoscopic-assisted vaginal hysterectomy, bilateral salpingectomy. The patient is agreeable. The patient denies any personal or known family history of anesthesia problems, including malignant hyperthermia or pseudocholinesterase deficiency. Histories Past Medical History: 1. Hyperlipidemia 2. Heart murmur-evaluated by Dr. Brown 2005 3. Hypothyroidism 4. Anxiety 5. Depression Family History: Father History is unknown. Mother Diabetes.. Thyroid disease.. Grandfather Diabetes.. Procedure history: pilonidal cyst in 2017 at 36 Years. Hysteroscopy, D&C, Ablation in 2008 at 28 Years. Colonoscopy - Never. Cologard - Never. Social History Social & Psychosocial History Social History Alcohol Current, 1-2 times per month Sexual Sexually active: Yes. Other contraceptive use: BTL. Substance Abuse Denies Substance Abuse Tobacco Former smoker, quit more than 30 days ago Tobacco Use:. Cigarettes Comment: quit January 2024 (05/08/2024 13:10 - [place], Genoveva) Psychosocial History No active psychosocial history has been recorded . Patient is with 2 children. 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 Health Status Include (Selected) Allergic Reactions (All) No Known Allergies No Known Medication Allergies. Current medications: Home Meds (ST) Atorvastatin 20 mg daily Bupropion 300 mg daily Slynd 4 mg daily Hydroxyzine 10 mg 4 times daily as needed Levothyroxine 88 mcg daily Vyvanse 50 mg daily Tramadol 50 mg every 6 hours as needed Trazodone 100 mg 2 tablets nightly Valacyclovir 1 g twice daily as needed Venlafaxine 75 mg daily Strattera daily Uro-vaginal probiotic daily Ashwagandha gummies 2 tablets daily Review of Systems Constitutional: No fever. Eye: Patient wears contacts. Ear/Nose/Mouth/Throat: No nasal congestion, No sore throat. Respiratory: No shortness of breath, No cough. Cardiovascular: No chest pain, No heart murmur, No peripheral edema. Gastrointestinal: No diarrhea, No constipation, No heartburn, No abdominal pain. Genitourinary: Negative except as documented in history of present illness, No dysuria, No hematuria. Hematology/Lymphatics: No bleeding tendency. Endocrine: No cold intolerance, No heat intolerance. Immunologic: No recurrent fevers. Musculoskeletal: No back pain, No muscle pain. Integumentary: No rash, No breakdown, No skin lesion. Neurologic: Alert and oriented X4. Psychiatric: Anxiety, Depression. Physical Examination VS/Measurements Vital Signs (last 24 hrs) Last Charted Heart Rate Peripheral 73 bpm (MAY 08:19) Resp Rate 16 br/min (MAY 08:19) SBP 117 mmHg (MAY 08:19) DBP 78 mmHg (MAY 08:19) BMI 34.67 (MAY 08:) General: Alert and oriented. Eye: Pupils are equal, round and reactive to light. HENT: Normocephalic, Normal hearing. Neck: Supple, Non-tender. Respiratory: Lungs are clear to auscultation, Respirations are non-labored, Breath sounds are equal. Cardiovascular: Normal rate, Regular rhythm, No murmur, Good pulses equal in all extremities, Normal peripheral perfusion. Gastrointestinal: Soft, Non-tender, Non-distended, Normal bowel sounds. Genitourinary: No costovertebral angle tenderness. Lymphatics: No lymphadenopathy neck, axilla, groin. Musculoskeletal: Normal range of motion, Normal strength, No tenderness, No swelling, No deformity, Normal gait. Integumentary: Warm, Dry, Whitney. Neurologic: Alert, Oriented, Normal sensory, Normal motor function. Cognition and Speech: Oriented, Speech clear and coherent. Psychiatric: Cooperative, Appropriate mood & affect. Impression and Plan Diagnosis 1. Preprocedural exam Z01.818 2. Menorrhagia N92.0 3. Asthma J45.90-managed with Trelegy as needed. Orders Patient instructed to notify surgeon if they develop any new rashes, lesions, or open areas prior to surgery.. 2 grams Ancef IV ordered for preop day of surgery.. Preoperative Medication Education Patient advised to take green highlighted medications as prescribed including day of surgery with a small sip of water. Patient advised to take black highlighted medications as prescribed, hold day of surgery. Patient advised to STOP all vitamins, dietary supplements, and herbals 7 days before surgery. Patient advised to STOP all NSAIDS (ibuprofen, Advil, Aleve, Motrin, Celebrex, Mobic, etc.) 7 days before surgery. Patient advised to consult prescriber/surgeon regarding when to STOP purple highlighted medications. Atorvastatin 20 mg daily Bupropion 300 mg daily Slynd 4 mg daily Hydroxyzine 10 mg 4 times daily as needed Levothyroxine 88 mcg daily Vyvanse 50 mg daily Tramadol 50 mg every 6 hours as needed Trazodone 100 mg 2 tablets nightly Valacyclovir 1 g twice daily as needed Venlafaxine 75 mg daily Strattera daily Uro-vaginal probiotic daily Ashwagandha gummies 2 tablets daily Plan Pre-op diagnosis menorrhagia Scheduled for surgery with Dr. Milan on May 19, 2024 for a laparoscopic-assisted vaginal hysterectomy, bilateral salpingectomy RCRI of MACE-0.4% This note was completed with voice recognition technology. Verbal misinterpretations may occur. CPT 45577 DVT/VTE RISK FACTOR-TEXT Observed: 05/08 1:22 PM Status: F Source: [facility] DVT/VTE Risk Factor Entered On: 05/08/2024 13:22 EST Performed On: 05/08/2024 13:22 EST by Genoveva Rodas RN DVT/VTE Risk Factor Risk Factors=1 : Age 40-60, Obesity SCD's Ordered : Yes Antiembolism Device : SCDs, knee high Risk Factors=2 : Major Surgery (Surgery over 30 min or stay over 24hrs.) Total Risk score : 4 VTE Risk Level : Score 3 - 4 = HIGH RISK Genoveva Rodas RN - 05/08/2024 13:22 EST AMBULATORY CLINICAL SUMMARY Observed: 2:57 PM Status: F Source: [facility] BIN BILL :1980 Registration Date:04/10/2024 Ambulatory Visit Instructions Your Diagnosis Abnormal uterine bleeding Tests Performed US TV ECHO NON OB OFFICE READ Your Care Team Attending Physician - NAS LAM FACOG, BENJI Primary Care Physician - JOANIE FRANCO Referring Physician - TOY PERDOMO MD Procedures Performed pilonidal cyst (2016) Hysteroscopy, D&C, Ablation (2008) Cologard - Never Colonoscopy - Never Discharge Vitals Blood Pressure 148/76 Height 62.60 in (159 cm) Weight 190.73 lb (86.5 kg) BMI 34.22 Systolic Blood Pressure: 148 mmHg High (04/10/24 14:38:00) Diastolic Blood Pressure: 76 mmHg (04/10/24 14:38:00) Mean Arterial Pressure: 100 mmHg (04/10/24 14:38:00) Height/Length Measured: 159 cm (04/10/24 14:38:00) Weight Measured: 86.5 kg (04/10/24 14:38:00) Body Mass Index Measured: 34.22 kg/m2 (04/10/24 14:38:00) Ht/Wt Measurement Refused by Patient?2: No (04/10/24 14:38:00) What to do next Scheduled Follow-Up Appointments Appointment Type Reason for visit Day With Date Time Where [facility] Scheduled Surgery SW-LAPAROSCOPIC ASSISTED VAGINAL HYSTERECTOMY, BILATERAL SALPINGECTOMY (DR. MCKENNA ASSIST) Sunday Otilia Mckenna DO May 19, 2024 11:[facility] [address] [facility] [address] [facility] ZIP:[id number] Surgery SundayMay 19, 2024 12:00 pm EDT [place] ZIP: Post OP - 2 Weeks TWO WEEK POST OP NOE ANDUJAR Sunday Benji Milan MD June 03, 2024 11:00 am ED[facility] [address] [facility] ZIP:[address] Medications What How Much When Why Instructions Unchanged atorvastatin (atorvastatin 20 mg oral tablet) 30 EA, 0 Refill(s), TAKE 1 TABLET BY MOUTH ONCE DAILY Contact prescribing physician if questions or concerns Unchanged buPROPion (buPROPion 300 mg/ 24 hours (XL) oral tablet, extended release) 30 EA, 0 Refill(s), TAKE 1 TABLET BY MOUTH ONCE DAILY Contact prescribing physician if questions or concerns Unchanged drospirenone (Slynd 4 mg oral tablet) 1 Tabs Oral DAILY Menorrhagia Contact prescribing physician if questions or concerns Unchanged hydrOXYzine (hydrOXYzine hydrochloride 10 mg oral tablet) 45 EA, 0 Refill(s), TAKE 1 TABLET BY MOUTH 3 TO 4 TIMES DAILY NEEDED FOR ANXIETY Contact prescribing physician if questions or concerns Unchanged levothyroxine (levothyroxine 88 mcg (0.088 mg) oral tablet) 30 EA, 0 Refill(s), TAKE 1 TABLET BY MOUTH ONCE DAILY Contact prescribing physician if questions or concerns Unchanged lisdexamfetamine (Vyvanse 50 mg oral capsule) 30 EA, 0 Refill(s), Take 1 capsule (50 mg) by mouth once daily. Take in the morning Contact prescribing physician if questions or concerns Unchanged traMADol (traMADol 50 mg oral tablet) 28 EA, 0 Refill(s), TAKE 1 TABLET BY MOUTH EVERY 6 TO 8 HOURS NEEDED FOR PAIN Contact prescribing physician if questions or concerns Unchanged trazodone = Desyrel (traZODone 100 mg oral tablet) 1 Tabs Oral TWICE A DAY Contact prescribing physician if questions or concerns Unchanged valACYclovir (valACYclovir 1 g oral tablet) 4 EA, 0 Refill(s), TAKE 2 TABLETS BY MOUTH TWICE DAILY NEEDED for cold sores Contact prescribing physician if questions or concerns Unchanged venlafaxine (venlafaxine 75 mg oral capsule, extended release) 90 EA, 0 Refill(s), TAKE 3 CAPSULES BY MOUTH ONCE DAILY Contact prescribing physician if questions or concerns What How Much When Comments Stop Taking simvastatin (simvastatin 20 mg oral tablet) 1 Tabs Oral AT BEDTIME Allergies No Known Medication Allergies Problems Ongoing - Any problem that you are currently receiving treatment for. Faint heart murmur Palpitations Common Emergency Awareness Tips IS IT A STROKE? Act FAST and Check for these signs: FACE Does the face look uneven? ARM Does one arm drift down? SPEECH Does their speech sound strange? TIME Call at any sign of stroke Heart Attack Signs Chest discomfort: Most heart attacks involve discomfort in the center of the chest and lasts more than a few minutes, or goes away and comes back. It can feel like uncomfortable pressure, squeezing, fullness or pain. Discomfort in upper body: Symptoms can include pain or discomfort in one or both arms, back, neck, jaw or stomach. Shortness of breath: With or without discomfort. Other signs: Breaking out in a cold sweat, nausea, or lightheaded. Remember, MINUTES DO MATTER. If you experience any of these heart attack warning signs, call to get immediate medical attention! AMB PHYSICIAN PROGRESS NOTE Observed: 04/10/2024 2:51 PM Status: F Source: [facility] BIN BILL :1980 Registration Date:04/10/2024 Assessment/Plan This Visit Diagnosis Abnormal uterine bleeding N93.9 Plan for NOE ANDUJAR Ordered: AQUILES Ultrasound, transvaginal 76237, 04/10/2024 08:01:00 EST, Abnormal uterine bleeding, 1 US TV ECHO NON OB OFFICE READ, 04/10/2024 13:46:00 EST, Routine, OTHER REASON, see diagnosis, Ambulatory, N93.9 Medication Reconciliation What How Much When Why Instructions Unchanged atorvastatin (atorvastatin 20 mg oral tablet) 30 EA, 0 Refill(s), TAKE 1 TABLET BY MOUTH ONCE DAILY Unchanged buPROPion (buPROPion 300 mg/ 24 hours (XL) oral tablet, extended release) 30 EA, 0 Refill(s), TAKE 1 TABLET BY MOUTH ONCE DAILY Unchanged drospirenone (Slynd 4 mg oral tablet) 1 Tabs Oral DAILY Menorrhagia Unchanged hydrOXYzine (hydrOXYzine hydrochloride 10 mg oral tablet) 45 EA, 0 Refill(s), TAKE 1 TABLET BY MOUTH 3 TO 4 TIMES DAILY NEEDED FOR ANXIETY Unchanged levothyroxine (levothyroxine 88 mcg (0.088 mg) oral tablet) 30 EA, 0 Refill(s), TAKE 1 TABLET BY MOUTH ONCE DAILY Unchanged lisdexamfetamine (Vyvanse 50 mg oral capsule) 30 EA, 0 Refill(s), Take 1 capsule (50 mg) by mouth once daily. Take in the morning Unchanged simvastatin (simvastatin 20 mg oral tablet) 1 Tabs Oral AT BEDTIME Unchanged traMADol (traMADol 50 mg oral tablet) 28 EA, 0 Refill(s), TAKE 1 TABLET BY MOUTH EVERY 6 TO 8 HOURS NEEDED FOR PAIN Unchanged trazodone = Desyrel (traZODone 100 mg oral tablet) 1 Tabs Oral TWICE A DAY Unchanged valACYclovir (valACYclovir 1 g oral tablet) 4 EA, 0 Refill(s), TAKE 2 TABLETS BY MOUTH TWICE DAILY NEEDED for cold sores Unchanged venlafaxine (venlafaxine 75 mg oral capsule, extended release) 90 EA, 0 Refill(s), TAKE 3 CAPSULES BY MOUTH ONCE DAILY Chief Complaint Here for US f/u planning hyst in May 19, 2024 since being placed on the OCP no longer having AUB History of Present Illness Better on slynd but she wants to proceed with hysterectomy. reviewed procedure. Physical Exam Vitals & Measurements BP: 148/76 HT: 159 cm WT: 86.5 kg BMI: 34.22 Depression Screening Scores Initial Depression Screen Score: 0 (04/10/24 14:38:00) Fall Risk Assessment Is the patient ambulatory (mobile): Yes (04/10/24 14:38:00) Have you had a fall within the past: No (04/10/24 14:38:00) Have you had 2 or more falls in the past: No (04/10/24 14:38:00) The vital signs were reviewed and her blood pressure was slightly elevated General appearance: well developed and well nourished Lungs: Normal respiratory effort Extremities: no edema Psychiatric: Mood: normal BRIM SETTER Additional Details Menstrual History Menstrual StatusProphylaxis BRIM SETTER Screening Date of Last Pap Smear12/06/2023 Last Pap Result, Pt StatedNegative Last Pap Result CommentNeg HPV Date of Last Mammogram, Pt StatedNever Contraception Contraception MethodSterilization for contraception Sterilization TypeTubal ligation OB History History (2,0,0,2) # 1 Baby 1 Outcome Date: 06/17/1998 Outcome or Result: Vaginal Gest Age: 40 weeks Outcome: Live Sex: Male Hospital: [facility] Dr Mullen # 2 Baby 1 Outcome Date: 12/06/2003 Outcome or Result: Vaginal Gest Age: 40 weeks Outcome: Live Sex: Male Hospital: [facility] Dr Milan Problem List/Past Medical History Ongoing Faint heart murmur Palpitations Historical Procedure/Surgical History pilonidal cyst: 2016 Hysteroscopy, D&C, Ablation: 2008 Cologard - Never Colonoscopy - Never Medications atorvastatin(atorvastatin 20 mg oral tablet) buPROPion(buPROPion 300 mg/24 hours (XL) oral tablet, extended release) drospirenone(Slynd 4 mg oral tablet), 4 mg= 1 tabs, ORAL, DAILY, 3 refills hydrOXYzine(hydrOXYzine hydrochloride 10 mg oral tablet) levothyroxine(levothyroxine 88 mcg (0.088 mg) oral tablet) lisdexamfetamine(Vyvanse 50 mg oral capsule) simvastatin(simvastatin 20 mg oral tablet), 20 mg= 1 tabs, ORAL, QHS traMADol(traMADol 50 mg oral tablet) trazodone = Desyrel(traZODone 100 mg oral tablet), 100 mg= 1 tabs, ORAL, BID valACYclovir(valACYclovir 1 g oral tablet) venlafaxine(venlafaxine 75 mg oral capsule, extended release) Allergies No Known Medication Allergies Social History Alcohol Use:Current Sexual Sexually active:Yes Other contraceptive use:BTL Substance Abuse - Denies Substance Abuse Tobacco Use:Current some day smoker Family History Diabetes..: Mother and Grandfather. High blood pressure....: Mother. Thyroid disease..: Mother. Health Status Family Member(s) Radiology Results US TV ECHO NON OB OFFICE READ 04/10/2024 14:20 EST (04/10/2024 14:11 EST US TV ECHO NON OB OFFICE READ) * Final Report * Reason For Exam see diagnosis;OTHER REASON Report Indication: Abnormal uterine bleeding History of ablation A transvaginal ultrasound was performed. The uterus was anteverted and measured 7.6 by 4.5 by 3.6 cm. There were two intramural fibroids; a 2.4 by 1.7 by 1.6 anterior fundal and a 1.1 y 0.9 by 1.1 cm posterior. The endometrium measured 1.6 mm. There were several cystic structures in the cervix consistent with Nabothian cysts. The ovaries were not seen. Impression: Fibroid uterus. Non-visualized ovaries. Signature Line Technologist: DM Dictated By: BENJI MILAN MD, FACOG Signed By: BENJI MILAN MD, FACOG Transcribed: 04.10.2024 14:20 Signed Out: 04/10/24 14:20:52 [1] [1] US TV ECHO NON OB OFFICE READ; BENJI MILAN MD, FACOG 04/10/2024 14:11 EST BRIM SETTER VISIT - TEXT Observed: 04/10/2024 2:43 PM Status: F Source: [facility] BRIM SETTER Visit Entered On: 2024 14:43 EST Performed On: 04/10/2024 14:43 EST by Ekta Sanz BRIM SETTER Menstrual History Menstrual Status : Prophylaxis Ekta Sanz - 04/10/2024 14:43 EST BRIM SETTER Screenings Date of Last Pap Smear : 12/06/2023 Last Pap Result : Negative Last Pap Result Comment : Neg HPV Date of Last Mammogram : Never Ekta Sanz - 04/10/2024 14:43 EST Contraception Contraception Method : Sterilization for contraception Sterilization Type : Tubal ligation Ekta Sanz - 04/10/2024 14:43 EST COMPREHENSIVE INTAKE - TEXT Observed: 2:42 PM Status: F Source: [facility] Comprehensive Intake Entered On: 04/10/2024 14:42 EST Performed On: 04/10/2024 14:38 EST by Ekta Sanz Summary Chief Complaint : Here for US f/u planning hyst in May 19, 2024 since being placed on the OCP no longer having AUB Menstrual Status : Prophylaxis Bladder Control Issues? : No Urine Leakage? : No Presence or absence of urinary incontinence assessed : Yes CPT-II Medication list doc'd in medical record : Yes Influenza immunization administered or previously received : No Pneumococcal vaccine administered or previously received : No Ekta Sanz 04/10/2024 14:38 EST Measurements Ht/Wt Measurement Refused by Patient? : No Weight Measured : 86.5 kg(Converted to: 190 lb 11 oz, 190.700 lb) Height/Length Measured : 159 cm(Converted to: 5 ft 3 in, 62.60 in) Body Mass Index Measured : 34.22 kg/m2 Body Mass Index documented : Yes Ekta Sanz 04/10/2024 14:38 EST Vitals Require BP : Yes Systolic Blood Pressure : 148 mmHg (HI) Diastolic Blood Pressure : 76 mmHg Mean Arterial Pressure : 100 mmHg Last Systolic BP : greater than or equal to 140 mmHg Last Diastolic BP : less than 80 mmHg Pain Present : No actual or suspected pain Pain : 0 Pain severity quantified : No pain present Ekta Sanz 04/10/2024 14:38 EST Infection Screening Travel outside US within past 21 days : No Positive COVID test in the last 10 days? : No Exposure to and/or close contact with a person who has a laboratory-confirmed COVID test within the last 48 hours. : No Ekta Sanz 04/10/2024 14:38 EST Depression Screening Is patient currently : None of the Below Feeling Down, Depressed, Hopeless : Not at all Little Interest - Pleasure in Activities : Not at all Initial Depression Screen Score : 0 Depression Screening Score 0 : No Ekta Sanz 04/10/2024 14:38 EST Falls Risk Assessment Is the patient ambulatory (mobile) : Yes Have you had 2 or more falls in the past year : No Have you had a fall within the past year that has caused an injury : No Patient screen for fall risk : no falls in last year OR 1 fall with no injury in last year Ekta Sanz 04/10/2024 14:38 EST US TV ECHO NON OB OFFICE READ Observed: 04/10/2024 2:20 PM Status: F Source: [facility] Order Comment: Ordered on Fi n# [id number] Indication: Abnormal uterine bleeding History of ablation A transvaginal ultrasound was performed. The uterus was anteverted and measured 7.6 by 4.5 by 3.6 cm. There were two intramural fibroids; a 2.4 by 1.7 by 1.6 anterior fundal and a 1.1 y 0.9 by 1.1 cm posterior. The endometrium measured 1.6 mm. There were several cystic structures in the cervix consistent with Nabothian cysts. The ovaries were not seen. Impression: Fibroid uterus. Non-visualized ovaries. Result Comment: Technologist : DM Dictated By: BENJI MILAN MD, FACOG Signed By: BENJI MILAN MD, FACOG Transcribed: 04.10.2024 14:20 Signed Out: 04/10/24 14:20:52 PHONE MSG Observed: 03/25/2024 9:55 AM Status: F Source: [facility] From: Deb Hermosillo Sent: 03/25/2024 09:55:37 EST Subject: SURGERY Caller Name: BIN BILL; Caller Number: H Called left voice mail, need to change the date of her procedure with Dr. Milan. [facility] PHYSICIAN PROGRESS NOTE Observed: 02/26/2024 1:00 PM Status: F Source: [facility] BIN BILL :1980 Registration Date:02/26/2024 Assessment/Plan This Visit Diagnosis 1. Pre-procedure lab exam Z01.812 Ordered: AMB Urine POC 23833, 02/26/2024 12:32:00 EST, Pre-procedure lab exam History of endometrial ablation Z98.890 Will plan for NOE ANDUJAR. EMB done today Ordered: AMB Endometrial bx wwo Endocerv Bx NO Dilat [id number], 02/26/2024 12:27:00 EST, Menorrhagia / History of endometrial ablation, 1 AMB Schedule Surgery, 02/26/2024 12:43:00 EST, PRATIMA BS Menorrhagia N92.0 Will start Slynd Ordered: drospirenone(Slynd 4 mg oral tablet), 4 mg= 1 tabs, ORAL, DAILY, 3 refills AMB Endometrial bx wwo Endocerv Bx NO Dilat [id number], 02/26/2024 12:27:00 EST, Menorrhagia / History of endometrial ablation, 1 AMB Schedule Surgery, 02/26/2024 12:43:00 EST, LAVH, BS Medication Reconciliation What How Much When Why Instructions New drospirenone (Slynd 4 mg oral tablet) 1 Tabs Oral DAILY Menorrhagia Refills: 3 Pickup at [facility]/pharmacy #[id number] Changed hydrOXYzine (hydrOXYzine hydrochloride 10 mg oral tablet) 45 EA, 0 Refill(s), TAKE 1 TABLET BY MOUTH 3 TO 4 TIMES DAILY NEEDED FOR ANXIETY Changed venlafaxine (venlafaxine 75 mg oral capsule, extended release) 90 EA, 0 Refill(s), TAKE 3 CAPSULES BY MOUTH ONCE DAILY Unchanged atorvastatin (atorvastatin 20 mg oral tablet) 30 EA, 0 Refill(s), TAKE 1 TABLET BY MOUTH ONCE DAILY Unchanged buPROPion (buPROPion 300 mg/ 24 hours (XL) oral tablet, extended release) 30 EA, 0 Refill(s), TAKE 1 TABLET BY MOUTH ONCE DAILY Unchanged levothyroxine (levothyroxine 88 mcg (0.088 mg) oral tablet) 30 EA, 0 Refill(s), TAKE 1 TABLET BY MOUTH ONCE DAILY Unchanged lisdexamfetamine (Vyvanse 50 mg oral capsule) 30 EA, 0 Refill(s), Take 1 capsule (50 mg) by mouth once daily. 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 She had a pap and HPV with Dr. Franco a few months ago. She is open to trying something hormonal. She stlll occasionally smokes so we discussed slynd. Physical Exam Vitals & Measurements BP: 142/ 86 HT: 159 cm WT: 87.1 kg BMI: 34.45 LMP: 02/22/2024 00:00 EST Depression Screening Scores No Depression Screening data available for this encounter. Fall Risk Assessment Is the patient ambulatory (mobile): Yes (02/26/24 11:52:00) Have you had a fall within the past: No (02/26/24 11:52:00) Have you had 2 or more falls in the past: No (02/26/24 11:52:00) The vital signs were reviewed and her blood pressure is elevated. General appearance: well developed and well nourished Lungs: Normal respiratory effort Extremities: no edema Psychiatric: Mood: normal BRIM SETTER: External genitalia: normal, no lesions Urethra: normal meatus Vagina: normal no lesions, white discharge, vault normal Cervix: no lesions, no cervical motion tenderness, normal appearance Uterus: normal mobility, non-tender, normal size, shape and consistency Adnexa: normal Cul de sac: normal Perineum: no hemorrhoids, masses or warts noted BRIM SETTER Procedure Details ENDOMETRIAL BIOPSY: Patient in lithotomy position. A speculum was placed. The cervix was cleansed with betadine swabs. An endometrial pipelle was advanced without difficulty. The uterus sounded to 8 cm. Two passes were done for adequate tissue so the procedure was terminated. All instruments were removed. She tolerated the procedure well. BRIM SETTER Additional Details Menstrual History Menstrual StatusMenarcheal Last Menstrual Cqcjgv6102/22/2024 BRIM SETTER Screening Date of Last Pap Smear12/06/2023 Last Pap Result, Pt StatedNegative Last Pap Result CommentNeg HPV Date of Last Mammogram, Pt StatedNever Contraception Contraception MethodSterilization for contraception Sterilization TypeTubal ligation OB History History (2,0,0,2) # 1 Baby 1 Outcome Date: 06/17/1998 Outcome or Result: Vaginal Gest Age: 40 weeks Outcome: Live Sex: Male Hospital: [facility] Paz # 2 Baby 1 Outcome Date: 12/06/2003 Outcome or Result: Vaginal Gest Age: 40 weeks Outcome: Live Sex: Male Hospital: [facility] Problem List/Past Medical History Ongoing Faint heart murmur Palpitations Historical Procedure/Surgical History pilonidal cyst: 2016 Hysteroscopy, D&C, Ablation: 2008 Cologard - Never Colonoscopy - Never Medications atorvastatin(atorvastatin 20 mg oral tablet) buPROPion(buPROPion 300 mg/24 hours (XL) oral tablet, extended release) drospirenone(Slynd 4 mg oral tablet), 4 mg= 1 tabs, ORAL, DAILY, 3 refills hydrOXYzine(hydrOXYzine hydrochloride 10 mg oral tablet) levothyroxine(levothyroxine 88 mcg (0.088 mg) oral tablet) lisdexamfetamine(Vyvanse 50 mg oral capsule) simvastatin(simvastatin 20 mg oral tablet), 20 mg= 1 tabs, ORAL, QHS traMADol(traMADol 50 mg oral tablet) trazodone = Desyrel(traZODone 100 mg oral tablet), 100 mg= 1 tabs, ORAL, BID valACYclovir(valACYclovir 1 g oral tablet) venlafaxine(venlafaxine 75 mg oral capsule, extended release) Allergies No Known Medication Allergies Social History Alcohol Use:Current Sexual Sexually active:Yes Other contraceptive use:BTL Substance Abuse - Denies Substance Abuse Tobacco Use:Current some day smoker Family History Diabetes..: Mother and Grandfather. High blood pressure....: Mother. Thyroid disease..: Mother. Health Status Family Member(s) Lab Results Test Name Test Result Date/Time U beta hCG Ql Negative 02/26/2024 12:32 EST AMBULATORY CLINICAL SUMMARY Observed: 12:49 PM Status: F Source: [facility] BIN BILL :1980 Registration Date:02/26/2024 Ambulatory Visit Instructions Your Diagnosis Pre-procedure lab exam History of endometrial ablation Menorrhagia Tests Performed AMB Urine POC 18503 Your Care Team Attending Physician - BENJI MILAN MD, FACOG Primary Care Physician - JOANIE FRANCO Procedures Performed pilonidal cyst (2016) Hysteroscopy, D&C, Ablation (2008) Cologard - Never Colonoscopy - Never Discharge Vitals Blood Pressure 142/ 86 Height 62.60 in (159 cm) Weight 192.06 lb (87.1 kg) BMI 34.45 Systolic Blood Pressure: 142 mmHg High (02/26/24 11:52:00) Diastolic Blood Pressure: 86 mmHg High (02/26/24 11:52:00) Mean Arterial Pressure: 105 mmHg (02/26/24 11:52:00) Height/Length Measured: 159 cm (02/26/24 11:52:00) Weight Measured: 87.1 kg (02/26/24 11:52:00) Body Mass Index Measured: 34.45 kg/m2 (02/26/24 11:52:00) Height/Length Measured - in2: 62.5 in (02/26/24 11:52:00) Ht/Wt Measurement Refused by Patient?2: No (02/26/24 11:52:00) Last Menstrual Period: 02/22/24 (02/26/24 11:52:00) What to do next Scheduled Follow-Up Appointments Appointment Type Reason for visit Day With Date Time Where [facility] - 40 f/u Ultrasound - Ruchi HADDAD April 10, 2024 01:40 pm [facility] [address] [place] [address] [address] [facility] ZIP:[address] Established Patient F/U Benji Milan MD April 10, 2024 02:10 pm EDT [facility] [address] [facility] [address] [facility] ZIP:[address] Medications What How Much When Why Instructions New drospirenone (Slynd 4 mg oral tablet) 1 Tabs Oral DAILY Menorrhagia Refills: 3 Pickup at [facility]/pharmacy #[id number] Changed hydrOXYzine (hydrOXYzine hydrochloride 10 mg oral tablet) 45 EA, 0 Refill(s), TAKE 1 TABLET BY MOUTH 3 TO 4 TIMES DAILY NEEDED FOR ANXIETY Changed venlafaxine (venlafaxine 75 mg oral capsule, extended release) 90 EA, 0 Refill(s), TAKE 3 CAPSULES BY MOUTH ONCE DAILY Unchanged atorvastatin (atorvastatin 20 mg oral tablet) 30 EA, 0 Refill(s), TAKE 1 TABLET BY MOUTH ONCE DAILY Unchanged buPROPion (buPROPion 300 mg/ 24 hours (XL) oral tablet, extended release) 30 EA, 0 Refill(s), TAKE 1 TABLET BY MOUTH ONCE DAILY Unchanged levothyroxine (levothyroxine 88 mcg (0.088 mg) oral tablet) 30 EA, 0 Refill(s), TAKE 1 TABLET BY MOUTH ONCE DAILY Unchanged lisdexamfetamine (Vyvanse 50 mg oral capsule) 30 EA, 0 Refill(s), Take 1 capsule (50 mg) by mouth once daily. Take in the morning Unchanged simvastatin (simvastatin 20 mg oral tablet) 1 Tabs Oral AT BEDTIME Unchanged traMADol (traMADol 50 mg oral tablet) 28 EA, 0 Refill(s), TAKE 1 TABLET BY MOUTH EVERY 6 TO 8 HOURS NEEDED FOR PAIN Unchanged trazodone = Desyrel (traZODone 100 mg oral tablet) 1 Tabs Oral TWICE A DAY Unchanged valACYclovir (valACYclovir 1 g oral tablet) 4 EA, 0 Refill(s), TAKE 2 TABLETS BY MOUTH TWICE DAILY NEEDED for cold sores Pharmacy Information [facility] #[id number]: [address], [place] [phone] Test Results AMB Urine POC 63283 (02/26/2024) U beta hCG Ql - Negative Allergies No Known Medication Allergies Problems Ongoing - Any problem that you are currently receiving treatment for. Faint heart murmur Palpitations Common Emergency Awareness Tips IS IT A STROKE? Act FAST and Check for these signs: FACE Does the face look uneven? ARM Does one arm drift down? SPEECH Does their speech sound strange? TIME Call at any sign of stroke Heart Attack Signs Chest discomfort: Most heart attacks involve discomfort in the center of the chest and lasts more than a few minutes, or goes away and comes back. It can feel like uncomfortable pressure, squeezing, fullness or pain. Discomfort in upper body: Symptoms can include pain or discomfort in one or both arms, back, neck, jaw or stomach. Shortness of breath: With or without discomfort. Other signs: Breaking out in a cold sweat, nausea, or lightheaded. Remember, MINUTES DO MATTER. If you experience any of these heart attack warning signs, call to get immediate medical attention! AMB URINE POC 58112 Observed: 02/26/2024 12:32 PM Status: F Source: [facility] Urine Test Entered On: 02/26/2024 12:32 EST Performed On: 02/26/2024 12:32 EST by Ekta Sanz Urine HCG Urine Beta Human Chorionic Gonadotropin Qualitative : Negative Ekta Sanz - 02/26/2024 12:32 EST BRIM SETTER VISIT - TEXT Observed: 02/26/2024 12:03 PM Status: F Source: [facility] BRIM SETTER Visit Entered On: 2023 12:03 EST Performed On: 02/26/2024 12:02 EST by Ekta Sanz BRIM SETTER Menstrual History Menstrual Status : Menarcheal Ekta Sanz - 02/26/2024 12:02 EST BRIM SETTER Screenings Date of Last Pap Smear : 12/06/2023 Last Pap Result : Negative Last Pap Result Comment : Neg HPV Date of Last Mammogram : Never Ekta Sanz - 02/26/2024 12:02 EST Contraception Contraception Method : Sterilization for contraception Sterilization Type : Tubal ligation Ekta Sanz - 02/26/2024 12:02 EST COMPREHENSIVE INTAKE - TEXT Observed: 12:02 PM Status: F Source: [facility] Comprehensive Intake Entered On: 02/26/2024 11:56 EST Performed On: 02/26/2024 11:52 EST by Ekta Sanz Summary Last Menstrual Period : 02/22/2024 EST CPT-II Medication list doc'd in medical record : Yes Influenza immunization administered or previously received : No Chief Complaint : CHARACTER ACTRESS - Here to discuss ablation, Pt states she had one about 15 yrs ago her cycles are back, she has cramping started getting clots again and 5 days period changing Q3-4 hrs/maxi QD Ekta Sanz - 02/26/2024 11:57 EST Menstrual Status : Menarcheal Bladder Control Issues? : No Urine Leakage? : No Presence or absence of urinary incontinence assessed : Yes Pneumococcal vaccine administered or previously received : No Ekta Sanz 02/26/2024 11:52 EST Measurements Ht/Wt Measurement Refused by Patient? : No Weight Measured : 87.1 kg(Converted to: 192 lb 0 oz, 192.023 lb) Height/Length Measured : 159 cm(Converted to: 5 ft 3 in, 62.60 in) Body Mass Index Measured : 34.45 kg/m2 Body Mass Index documented : Yes Height/Length Measured - in : 62.5 in(Converted to: 5 ft 3 in, 159 cm) Ekta Sanz 02/26/2024 11:52 EST Vitals Require BP : Yes Systolic Blood Pressure : 142 mmHg (HI) Diastolic Blood Pressure : 86 mmHg (HI) Mean Arterial Pressure : 105 mmHg Last Systolic BP : greater than or equal to 140 mmHg Last Diastolic BP : 80-89 mmHg Pain Present : No actual or suspected pain Pain : 0 Pain severity quantified : No pain present Ekta Sanz 02/26/2024 11:57 EST Infection Screening Travel outside US within past 21 days : No Positive COVID test in the last 10 days? : No Exposure to and/or close contact with a person who has a laboratory-confirmed COVID test within the last 48 hours. : No Ekta Sanz 02/26/2024 11:57 EST Depression Screening Is patient currently : Active Diagnosis of Depression Ekta Sanz 02/26/2024 11:57 EST Falls Risk Assessment Is the patient ambulatory (mobile) : Yes Have you had 2 or more falls in the past year : No Have you had a fall within the past year that has caused an injury : No Patient screen for fall risk : no falls in last year OR 1 fall with no injury in last year Ekta Sanz 02/26/2024 11:57 EST SURGICAL PATH REPORT Observed: 11:40 AM Status: F Source: [facility] Department of Pathology [address] [place] [phone] Name: BIN BILL : 1980 Financial [id number] Number: Gender Female [facility] : n: Admit 43 years Attending BENJI MILAN MD, FACOG Age: Provider: Ordering BENJI MILAN MD, FACOG Provider: Consulti Surgical Pathology Report ng: ACCESSION: COLLECTED DATE/TIME: RECEIVED DATE/TIME: PATHOLOGIST: [id number] 02/26/2024 11:40 EST 02/27/2024 10:43 EST TOY PERDOMO MD Final Diagnosis A. ENDOMETRIAL BIOPSY: -- DETACHED ATYPICAL SQUAMOUS EPITHELIUM, MILD DYSPLASIA CANNOT BE ENTIRELY EXCLUDED, SEE NOTE Note: No endometrial tissue identified for morphologic evaluation. Intradepartmental consultation with concurrence is obtained. TOY PERDOMO PATHOLOGIST (Electronic Signature) Date Verified 03/04/2024 Clinical Data PRE-OP DIAGNOSIS: MENORRHAGIA POST-OP DIAGNOSIS: NOT SPECIFIED PROCEDURES: ENDOMETRIAL BIOPSY SPECIMEN: ENDOMETRIAL BIOPSY Gross Description Labeled EM B. Received in formalin are multiple irregular harrington-pink to red feathery segments of soft tissue intermixed with mucoid/hemorrhagic material. The specimen is filtered and has a filtrate aggregate dimension of 1.5 x 1.3 x 0.5 cm. The specimen is entirely submitted in one cassette. 02/27/2024 11:05:10 EST Microscopic Diagnosis The final diagnosis is based on a microscopic exam of instruments sales representative sections. ____ Print 03/05/2024 11:45 EST Number: Date/Time: General Department of Pathology [address] [place] [phone] Name: BIN BILL : 1980 [facility] [id number] Number: Gender Female [facility]. : n: Admit 43 years Attending BENJI MILAN MD, FACOG Age: Provider: Ordering BENJI MILAN MD, FACOG Provider: Consulti Surgical Pathology Report ng: ACCESSION: COLLECTED DATE/TIME: RECEIVED DATE/TIME: PATHOLOGIST: [id number] 02/26/2024 11:40 EST 02/27/2024 10:43 EST SULTANA LAM, TOY Microscopic Diagnosis This report was transcribed using voice recognition technology and might contain unintended computerized fish house worker errors. Codes CPT code: 85824 ____ [facility] 03/05/2024 11:45 EST Number: Date/Time: Performed By: #### [id number] # ### [facility] [address] [place], [place] [address] Calculating Machine Mechanic: Landon Calabrese MD ALLERGIES No Allergies Records Found ENCOUNTERS ADMIT/DISCHARGE ACCOUNT NUMBER ADMITTING ENCOUNTER CLASS LOC ATION SOURCE 06/30/2024 [id number] Ambulatory AMBMOBGYBuil ding:AMBMOBG Y [facility] 06/30/2024/ 5 [id number] Ambulatory AMBMOBGYBuil ding:AMBMOBG YRoom: EX06 [facility] 06/18/2024/ 5 [id number] Ambulatory AMBMOBGYBuil ding:AMBMOBG Y [facility] 05/29/2024/ 5 [id number] Ambulatory AMBMOBGYBuil ding:AMBMOBG YRoom: EX08 [facility] 05/23/2024 [id number] Ambulatory AMBMOBGYBuil ding:AMBMOBG Y [facility] 05/19/2024/ 5 [id number] Ambulatory [id number] g:ASC [facility] 05/08/2024/ 5 [id number] Ambulatory [id number] g:PAT [facility] 04/10/2024/ 5 [id number] Ambulatory AMBMOBGYBuil ding:AMBMOBG YRoom: EX06 [facility] 02/26/2024/ 4 [id number] Ambulatory AMBMOBGYBuil ding:AMBMOBG YRoom: EX08 [facility] 02/26/2024/ 4 [id number] Ambulatory [id number] g:LOP [facility] PAYERS ENCOUNTER GUARANTOR PAYER SUBSCRIBER SOURCE 06/30/2024 BIN KAMARA: [place], [place] [address]Lfe: [phone] (HP) Primary Insurance:ANTHEMPo licy Number: Effective Date:Plan Name:Sami KAMARA: [id number] [place], [place] [address]Nnx: (HP) (WP) [facility] 06/30/2024 BIN BILLB: [place], [place] [address]Ism: [id number] (HP) Primary Insurance:ANTHEMPo licy Number: Effective Date:Plan Name:Sami KAMARA: [id number] [place], [place] [address]Egn: (HP) (WP) [facility] 06/18/2024 BIN THOMASB: [place], [place] [address]Wqr: [phone] (HP) Primary Insurance:ANTHEMPo licy Number: Effective Date:Plan Name:Sami POONOB: [id number] [place], [place] [address]Ifr: (HP) (WP) [facility] 05/29/2024 BIN THOMASB: [place], [place] [address]Qtt: [phone] (HP) Primary Insurance:ANTHEMPo licy Number: Effective Date:Plan Name:Sami THOMASB: [id number] [place], [place] [address]Lml: (HP) (WP) [facility] 05/23/2024 BIN THOMASB: [address] [place], [place] [address]Jth: [phone] (HP) Primary Insurance:ANTHEMPo licy Number: Effective Date:Plan Name:Sami THOMASB: [id number] [place], [place] [address]Gfd: (HP) (WP) [facility] 05/19/2024 BIN THOMASB: [address] [place], [place] [address]Byn: [phone] (HP) Primary Insurance:ANTHEMPo licy Number: Effective Date:Plan Name:Sami KAMARA: [id number] [place], [place] [address]Prw: (HP) (WP) [facility] 05/08/2024 BIN THOMASB: [address] [place], [place] [address]Qlm: [phone] (HP) Primary Insurance:ANTHEMPo licy Number: Effective Date:Plan Name:Sami BUENO: [id number] [place], [place] [address]Ghs: (HP) (WP) [facility] 04/10/2024 BIN THOMASB: [address] [place], [place] [address]Dbb: [phone] (HP) Primary Insurance:ANTHEMPo licy Number: Effective Date:Plan Name:Sami POONOB: [id number] [place], [place] [address]Sxq: (HP) (WP) [facility] 02/26/2024 BIN BILLAZAEL: [place], [place] [address]Jgb: [phone] (HP) Primary Insurance:ANTHEMPo licy Number: Effective Date:Plan Name:Sami POONOB: [id number] [place], [place] [address]Ksw: (HP) (WP) [facility] 02/26/2024 BINRAKAN BILLAZAEL: [place], [place] [address]Sap: [phone] (HP) Primary Insurance:ANTHEMPo licy Number: Effective Date:Plan Name:Sami POONOB: [id number] [place], [place] [address]Kct: (HP) (WP) [facility]
[2024-12-19 22:12] VITALS: BP 142/88; PULSE 90; RESP 16; TEMP 36.9; O2SAT 97; BMI 34.8
[2024-12-19 23:22] LABS: Hematocrit 44.5 % (37-47); Hemoglobin 15.1 g/dL (12.0-15.0); Immature Granulocytes Count 0.070 X10^3/uL (0.0-0.0); Mean Corp Hgb Conc 33.9 g/dL (32-36); Mean Corpuscular Volume 89.0 fL (81-99); Mean Platelet Vol. 9.1 fl (6.2-12.0); NRBC Flagged by Analyzer 0 % (0-5); Platelet Count 341 K/mm3 (150-450); RBC Distribution Width CV 14.0 % (11.6-14.6); RBC Distribution Width SD 45.3 fl (35.1-43.9); Red Blood Count 5.00 M/mm3 (4.2-5.4); White Blood Count 15.1 K/mm3 (4.4-11.0)
[2024-12-19 23:42] LABS: Lipase 27 U/L (13-75)
[2024-12-19 23:44] LABS: AST(SGOT) 31 U/L (<=31); Alanine Aminotransfer ALT/SGPT 36 U/L (<=34); Albumin, Serum 4.1 g/dL (3.5-5.0); Alkaline Phosphatase 96 U/L (35-104); Anion Gap 15 (5-15); BUN 5 mg/dL (4-19); BUN/Creat Ratio 5.9 RATIO (10-20); Calcium,Total 10.1 mg/dL (7.6-11.0); Carbon Dioxide 17.9 mmol/L (21.0-32.0); Chloride 103 mmol/L (98-108); Estimated Creatinine Clearance 86.57 ml/min (50-250); Globulin 3.6 g/dL (2.2-4.2); Glucose 76 mg/dL (70-99); Potassium 3.9 mmol/L (3.3-5.1)
[2024-12-20 00:12] VITALS: BP 117/85; PULSE 70; RESP 18; O2SAT 97
--- NOTE | 2024-12-20 00:24 | EDS_ITS ---
HPI History of Present Illness Chief Complaint: Abd Pain [facility] Medical History Skin lesion of face ABLATION UTERINE 2010 ADD (attention deficit disorder) Depression Anxiety disorder history of cystectomy Home Medications ?Medication ?Instructions ?Recorded ?Last Taken ?Type bupropion HCl 300 mg 24 hr tablet, 300 mg PO QAM 12/14 Unknown History extended release (Wellbutrin XL) albuterol sulfate 90 mcg/actuation 2 puff inhalation Q 6H PRN 08/26/20 Unknown Rx aerosol inhaler (ProAir HFA) shortness of breath or wh eezing #6.7 grams tramadol 50 mg tablet 50 mg PO Q8H PRN pain #30 ta bs 11/12/20 Unknown Rx promethazine 12.5 mg tablet 12.5 mg PO TID PRN nausea and 08/05/21 Unknown Rx vomiting #60 tabs trazodone 100 mg tablet 200 mg (2 x 100 mg) PO QHS 1 80 04/19/23 Unknown Rx days #360 tabs levothyroxine 88 mcg tablet 88 mcg PO DAILY #90 tabs 0 08/23/23 Unknown Rx hydroxyzine HCl 10 mg tablet 10 mg PO TID-QID PRN anxi ety #45 12/27/23 Unknown Rx tabs valacyclovir 1 gram tablet 2,000 mg (2 x 1 gram) PO BI D PRN 01/23/24 Unknown Rx cold sores 1 day #4 tabs pantoprazole 40 mg tablet,delayed 40 mg PO QDAY #30 ta bs 09/10/24 Unknown Rx release venlafaxine 75 mg capsule,extended 225 mg PO QDAY 08/24 11/17 Unknown History release 24 hr ondansetron 4 mg disintegrating 4 mg PO Q8H PRN PRN Na usea #10 tabs 12/15/24 Unknown Rx tablet metronidazole 250 mg tablet 250 mg PO TID 10 days #30 tabs 12/19/24 Unknown Rx metoclopramide HCl 5 mg tablet 5 mg PO Q8H PRN nausea and 12/20/24 Unknown Rx (Reglan) vomiting 5 days #14 tabs Allergy/AdvReac Type Severity Reaction Status Date / Time No Known Allergies Allergy Verified 12/19/24 22:13 Family History Other Breast cancer Diabetes Heart disease High cholesterol Hypertension Migraines TREMORS Thyroid disorder Surgical History Pilonidal cyst Social History Smoking Status: Former smoker second hand exposure: Yes alcohol intake: current substance use type: does not use EXAM Physical Exam Const Vital Signs: 12/19/24 22:12 12/20/24 00:12 12/20/24 02:00 Temperature 98.5 F Temperature Source Oral Pulse Rate 90 70 62 Respiratory Rate 16 18 16 Blood Pressure 142/88 H 117/85 H 115/74 Blood Pressure Mean 106 95 87 Pulse Ox 97 97 96 Oxygen Delivery Method Room Air Room Air Room Air MDM MDM MDM Narrative Medical decision making narrative: HISTORY OF PRESENT ILLNESS: Chief complaint: Abdominal pain 44-year-old female history of nausea vomiting, diarrhea, gastroenteritis, anxiety, ADD, depression, hyperlipidemia, GERD presents with abdominal pain nausea, vomiting and diarrhea. She states this began 7 days ago. Notes recent travel to [facility]. Notes recent cessation of antibiotics that she is taking for bronchitis. She started this today. She notes several episodes up to 8 of diarrhea. Nonbloody diarrhea. No fevers noted. Notes several episodes of vomiting as well 3-4 documented last 24 hours. She notes there is a green discoloration to her vomit but denies any hematemesis. She notes diffuse abdominal pain REVIEW OF SYSTEMS: Pertinent positives: Abdominal pain, nausea vomiting, diarrhea Pertinent negatives: Fever PHYSICAL EXAM: Nursing triage notes reviewed, Vital signs reviewed Constitutional: please see mdm HENT: MMM Eyes: Pupils equal round and reactive to light, Extraocular muscles intact Neck: No stridor, no JVD, full neck ROM Lungs: Clear to auscultation, No wheezing or rales. No increased work of breathing, no conversational dyspnea, no accessory muscle use, no nasal flaring. No respiratory distress noted Heart: Regular rate and rhythm, No murmurs, No rubs and No gallops, 2+ distal pulses (radial, femoral, posterior tibial) in all extremities Abdomen: Soft, there is no tenderness, rigidity, rebound or guarding, no obvious peritoneal signs, no palpable pulsatile abdominal masses, no auscultated abdominal bruit : No CVAT Extremities: No edema Neuro: No new focal neurological deficits, cranial nerves II through XII intact, 5/5 strength in all present extremities. Intact sensation to light touch in all present extremities, 2+ reflexes bilateral patella tendons. Skin: No rash or lesions noted MEDICAL DECISION MAKING: Chief Complaint: please see HPI External records reviewed: Reviewed CT scan abdomen pelvis from 12/15/2024 no sign of obstruction or perforation Factors affecting care: As per HPI Social determinants of health: Denies THC History obtained from others: Consults: none [facility] Narrative: Patient was seen approximately 2 hours after initial presentation secondary to poor departmental dynamics including high-volume high acuity. There are currently 24 patients in the emergency department at time evaluation. Patient was initially hemodynamically stable, afebrile and nontoxic-appearing. Exam I considered the following differential diagnosis: AAA, small bowel obstruction, abdominal perforation, appendicitis, pancreatitis, hepatobiliary pathology (acute cholecystitis), mesenteric ischemia, pathology (ie nephrolithiasis, pyelonephritis). Triage orders were placed per protocol including CBC, CMP, lipase, IV to further determine if the patient was suffering from a life-threatening etiology. After evaluating the patient I added symptomatic treatments. The patient's initial abdominal exam was overall benign. Given her symptoms s tarted a week ago and she has a negative CT scan within that time we do not suspect she is suffering from a life-threatening intra-abdominal emergency. There is no fever, blood in her stool to suggest invasive bacterial species (Salmonella, E. coli) Initially treated the patient with IV fluids, Zofran, morphine for pain ALL IMAGES (IF OBTAINED) HAVE BEEN PERSONALLY REVIEWED AND INTERPRETED BY M YSELF. CBC with improved leukocytosis from prior, no anemia but there is slightly elevated hemoglobin suggestive of hemoconcentration and dehydration, no thrombocytopenia BMP without significant electrolyte abnormalities, there is a very mild metabolic acidosis with a bicarb of 17.9 there is no sign of elevation anion gap to suggest endorgan hypoperfusion, no acute kidney injury. Metabolic acidosis likely secondary to mild dehydration LFTs show no evidence of hepatobiliary pathology. Lipase is wnl indicating no pancreatic inflammation. Patient was re-evaluated. Repeat abdominal exam remained benign. P.o. challenge passed. Is appropriate discharge home as there is no clear life- limiting etiology that could be ascertained. The patient and/or family, caregivers express understanding. The patient and/or family, caregivers agrees with the plan. Shared decision making: I will have a discussion with the patient and or visitors regarding risk/benefits of further testing or admission. They will be made aware of of the risk/benefits inherent in this decision they will be given the opportunity to voice understanding. Total critical care time today provided was at least 0 minutes. This excludes separately billable procedures. Critical care time (if documented) is secondary to the patient having high probability of clinically significant/life threatening deterioration in the patient's condition which required my urgent intervention. Impression: 1. Acute abdominal pain 2. Nausea vomiting diarrhea 3. Dehydration Dispo: Discharge home This note was generated with Fidelis dictation software. It may contain incorrect words, spelling, and punctuation that were not noted in review of the chart prior to signing. Lab Data Labs: Laboratory Results - last 24 hr 12/19/24 23:11 WBC 15.1 H RBC 5.00 Hgb 15.1 H Hct 44.5 MCV 89.0 MCH 30.2 MCHC 33.9 RDW Std Deviation 45.3 H RDW Coeff of Nathanael 14.0 Plt Count 341 MPV 9.1 Immature Gran % (Auto) 0.500 Neut % (Auto) 70.6 H Lymph % (Auto) 20.3 [place] % (Auto) 7.7 Eos % (Auto) 0.5 Baso % (Auto) 0.4 Absolute Neuts (auto) 10.6 H Absolute Lymphs (auto) 3.06 Nucleated RBC % 0 Sodium 135 Potassium 3.9 Chloride 103 Carbon Dioxide 17.9 L Anion Gap 15 BUN 5 Creatinine 0.86 Estim Creat Clear Calc 86.57 Est GFR (MDRD) Non-Af 84 BUN/Creatinine Ratio 5.9 L Glucose 76 Calcium 10.1 Total Bilirubin 0.51 AST 31 ALT 36 H Alkaline Phosphatase 96 Total Protein 7.7 Albumin 4.1 Globulin 3.6 Albumin/Globulin Ratio 1.1 Lipase 27 Discharge Plan Triage Chief Complaint: Abd Pain Other Complaint: Nausea/Vomiting ED Provider: Gilberto Jeff Dx/Rx/DC Orders Clinical Impression: Nausea & vomiting Instructions: ED Vomit & Diarrhea [facility] Adult Prescriptions: New metoclopramide HCl [Reglan] 5 mg tablet 5 mg PO Q8H PRN (Reason: nausea and vomiting) 5 Days Qty: 14 0RF No Action bupropion HCl [Wellbutrin XL] 300 mg tablet extended release 24 hr 300 mg PO QAM ondansetron 4 mg tablet,disintegrating 4 mg PO Q8H PRN PRN (Reason: Nausea) Qty: 10 0RF albuterol sulfate [ProAir HFA] 90 mcg/actuation HFA aerosol inhaler 2 puff inhalation Q6H PRN (Reason: shortness of breath or wheezing) Qty: 6.7 12RF tramadol 50 mg tablet 50 mg PO Q8H PRN (Reason: pain) Qty: 30 5RF promethazine 12.5 mg tablet 12.5 mg PO TID PRN (Reason: nausea and vomiting) Qty: 60 1RF trazodone 100 mg tablet 200 mg PO QHS 180 Days Qty: 360 3RF levothyroxine 88 mcg tablet 88 mcg PO DAILY Qty: 90 3RF hydroxyzine HCl 10 mg tablet 10 mg PO TID-QID PRN (Reason: anxiety) Qty: 45 12RF valacyclovir 1 gram tablet 2,000 mg PO BID PRN (Reason: cold sores) 1 Days Qty: 4 12RF pantoprazole 40 mg tablet,delayed release (DR/EC) 40 mg PO QDAY Qty: 30 12RF venlafaxine 75 mg capsule,extended release 24hr 225 mg PO QDAY metronidazole 250 mg tablet 250 mg PO TID 10 Days Qty: 30 0RF Primary Care Provider: Varsha Beth NP Referrals: Varsha Beth NP, [employer]IC[employer]-C [Primary Care Provider, Family Practice] Activity Restrictions/Additional Instructions: Thank you for trusting us with your care today! Your labs are reassuring. Please take Tylenol (2 pills, 650 mg), ibuprofen (2 pills, 400 mg) every 6 hours as needed for pain and fever control. Please return to the emergency department if your symptoms change or worsen. Please follow with your primary care physician for further outpatient evaluation and management. Print Language: Nepalese Disposition Disposition: Home, Self Care
[2024-12-20] MEDS: 0.9% Normal Saline (1000mL) 1,000 ML 1000 ML IV (01:10)
[2024-12-20 02:00] VITALS: BP 115/74; PULSE 62; RESP 16; O2SAT 96
[2024-12-20 03:08] VITALS: BP 111/72; PULSE 67; RESP 16; TEMP 36.6; O2SAT 97
== END 2024-12-20 03:11 | disposition home or self-care (01) ==
PROVIDERS: Emergency Provider Emergency Medicine; PCP Nurse Practitioner; Visit Provider Emergency Medicine
DX: R11.2 Nausea with vomiting, unspecified (principal); R10.9 Unspecified abdominal pain; E86.0 Dehydration; J40 Bronchitis, not specified as acute or chronic; Z87.891 Personal history of nicotine dependence; E78.5 Hyperlipidemia, unspecified; F41.9 Anxiety disorder, unspecified; R19.7 Diarrhea, unspecified
CPT/HCPCS: 80053; 83690; 85025; 96361; 96374; 96375; 99282; A4216